=== PATIENT | female | born 1970 | race Caucasian/White ===

== ENCOUNTER 2018-09-01 08:00 | Outpatient (CLI) | payer MEDICAID | END 2018-09-01 23:59 | disposition home or self-care (01) | LOC: LAB.R 08:00 | PROVIDERS: ATTEND Obstetrics & Gynecology | DX: A60.00 Herpesviral infection of urogenital system, unspecified (principal) ==

== ENCOUNTER 2018-09-08 09:32 | Emergency (ER) | payer MEDICAID ==
[2018-09-08] MEDS ORDERED: predniSONE 20 MG TABLET PO STA (11:24)
[2018-09-08] MEDS ORDERED: guaiFENesin/DEXTROMETHORPHAN 10 ML UDC PO STA (11:24)
[2018-09-08] MEDS ORDERED: ALBUTEROL NEB 2.5 MG/3 ML INH STA (11:24)
--- NOTE | 2018-09-08 12:50 | XRAY Report ---
Reason: Jim mccullough Procedure Date: 09/08/2018 Accession Number: [id number] / [id number] Procedure: XR - Chest 2 View X-Ray CPT Code: 02648 FULL RESULT: EXAM: CHEST RADIOGRAPHY EXAM DATE: 09/08/2018 12:23 PM. CLINICAL HISTORY: Jim cali. COMPARISON: None. TECHNIQUE: 2 views. FINDINGS: Lungs/Pleura: No focal consolidation. Very mild opacity at the anterior lung base on the lateral view suggests some very mild atelectasis or infiltrate within the lingular segment. No pleural effusion. No pneumothorax. Mediastinum: Heart and mediastinal contours are unremarkable. Other: None. IMPRESSION: Possible mild atelectasis or infiltrate within the lingular segment left upper lobe. No definite consolidation. RADIA
--- NOTE | 2018-09-08 13:12 | ED Physician Documentation ---
History of Present Illness - Stated complaint Stated Complaint: SOA/COUGH - Chief complaint Chief Complaint: Resp - Additonal information Additional information: hx from pt 48 female has lupus not on immunosupressants also chronic bronchitis uses spiriva and albuter[place] moved her from [place] several days of head congestion now into chest with cough and myalgias and SOA rest of family with same denies preg no leg swelling Review of Systems Constitutional: reports: Myalgias, Fatigue. denies: Fever Nose: reports: Congestion Cardiac: denies: Chest pain / pressure Respiratory: reports: Dyspnea, Cough : denies: Now EGA Musculoskeletal: denies: Extremity swelling Immunocompromised: denies: Immunocompromised PD PAST MEDICAL HISTORY - Past Medical History Past Medical History: Yes Respiratory: Asthma, Pneumonia, Other Endocrine/Autoimmune: Systemic lupus erythematosus GI: Pancreatitis, Cirrhosis Musculoskeletal: Osteoarthritis Other Past Medical History: lupus sle, non alcoholic cirrhosis,esophagus strictures - Past Surgical History General: Cholecystectomy, EGD Ortho: Arthroscopic surgery, Carpal Tunnel surgery, Other HEENT: Other - Present Medications Home Medications: Ambulatory Orders Medication Instructions Recorded Confirmed Albuterol 80 mcg INH BID 09/08/18 09/08/18 Albuterol Sulf [Ventolin Hfa 90 mcg INH Q6H 09/08/18 09/08/18 Inhaler] Alprazolam [Alprazolam Xr] 09/08/18 Brexpiprazole [Rexulti] DAILY 09/08/18 Doxycycline Hyclate 100 mg PO BID #20 capsule 09/08/18 Furosemide [Lasix] ORAL DAILY 09/08/18 Levothyroxine [Synthroid] DAILY 09/08/18 Rabeprazole Sodium [Aciphex] 40 mg ORAL DAILY 09/08/18 09/08/18 Sertraline HCl [Zoloft] 100 mg ORAL DAILY 09/08/18 09/08/18 diphenhydrAMINE [Benadryl] 09/08/18 guaiFENesin/DEXTROMETHORPHAN 10 ml PO Q6H PRN #120 ml 09/08/18 [Robitussin Dm] metFORMIN [Glucophage] ORAL DAILY 09/08/18 predniSONE [Deltasone] 60 mg PO DAILY 5 Days #15 tablet 09/08/18 - Allergies Allergies/Adverse Reactions: Allergies Allergy/AdvReac Type Severity Reaction Status Date / Time naproxen [From Aleve] Allergy Cramps Verified 09/08/18 09:45 Penicillins Allergy Anaphylaxis Verified 09/08/18 09:44 Sulfa (Sulfonamide Allergy Cramps Verified 09/08/18 09:44 Antibiotics) - Social History Does the pt smoke?: Yes Smoking Status: Current every day smoker Does the pt drink ETOH?: No Does the pt have substance abuse?: No - Immunizations Immunizations are current?: Yes - POLST Patient has POLST: No PD ED PE NORMAL - Vitals Vital signs reviewed: Yes - HEENT HEENT: Atraumatic, Ears normal, Moist mucous membranes, Other (no sinus TTP) - Neck Neck: Supple, no meningeal sign - Cardiac Cardiac: RRR - Respiratory Respiratory: No: Clear bilaterally (LLQ ronchi, no wheeze) - Extremities Extremities: No edema, No calf tenderness / cord Results - Vitals Vitals: Vital Signs - 24 hr 09/08/18 09/08/18 09:42 11:40 Temperature 36.0 C L Heart Rate 105 H 87 Respiratory 20 17 Rate Blood Pressure 141/90 H O2 Saturation 97 Oxygen O2 Source Room air - Labs Labs: Laboratory Tests 09/08/18 10:38 Influenza A (Rapid) Negative Influenza B (Rapid) Negative - Rads (name of study) CXR Radiology: See rad report (lingular infiltrate) Departure - Departure Disposition: 01 Home, Self Care Clinical Impression: Pneumonia Qualifiers: Pneumonia type: due to unspecified organism Laterality: left Lung location: lower lobe of lung Qualified Code(s): J18.1 - Lobar pneumonia, unspecified organism Condition: Good Instructions: ED Pneumonia Adult Prescriptions: Doxycycline Hyclate 100 mg PO BID #20 capsule guaiFENesin/DEXTROMETHORPHAN [Robitussin Dm] 10 ml PO Q6H PRN #120 ml PRN Reason: Cough predniSONE [Deltasone] 60 mg PO DAILY 5 Days #15 tablet Comments: Continue to use your albuterol every 4 hr as needed
[2018-09-08 13:49] VITALS: BP 138/88
== END 2018-09-08 13:48 | disposition home or self-care (01) ==
LOC: ED 09:32
DX: J18.1 Lobar pneumonia, unspecified organism (principal); M32.9 Systemic lupus erythematosus, unspecified; F17.200 Nicotine dependence, unspecified, uncomplicated
CPT/HCPCS: 71046; 87275; 87276; 94640; 99283; A9270; J7512

== ENCOUNTER 2018-10-10 07:47 | Outpatient (CLI) | payer MEDICAID ==
[2018-10-10 12:51] LABS: BASOPHILS % (AUTO) 0.3 %; EOSINOPHILS # (AUTO) 0.3 10^3/uL (0.0-0.7); EOSINOPHILS % (AUTO) 3.9 %; LYMPHOCYTES # (AUTO) 1.7 10^3/uL (1.5-3.5); LYMPHOCYTES % (AUTO) 22.8 %; MEAN CORPUSCULAR HEMOGLOBIN 32.4 pg (27.0-31.0); MEAN CORPUSCULAR HGB CONC 34.5 g/dL (32.0-36.0); MEAN CORPUSCULAR VOLUME 93.9 fL (81.0-99.0); MONOCYTES # (AUTO) 0.4 10^3/uL (0.0-1.0); MONOCYTES % (AUTO) 5.3 %; NEUTROPHILS # (AUTO) 5.1 10^3/uL (1.5-6.6); NEUTROPHILS % (AUTO) 67.7 %; PLT - PLATELET COUNT 291 10^3/uL (130-450); RED BLOOD COUNT 4.33 10^6/uL (4.20-5.40); RED CELL DISTRIBUTION WIDTH 13.7 % (12.0-15.0); WHITE BLOOD COUNT 7.6 x10^3/uL (4.8-10.8)
[2018-10-10 13:03] LABS: HB2 TOTAL 15.5 g/dL; HEMOGLOBIN A1C 0.65 g/dL
[2018-10-10 13:04] LABS: % IRON SATURATION 19 % (20-50); ALBUMIN 3.6 g/dL (3.2-5.5); ALBUMIN/GLOBULIN RATIO 1.2 (1.0-2.2); ALKALINE PHOSPHATASE 98 IU/L (42-121); ALT ALANINE AMINOTRANSFERASE 31 IU/L (10-60); AST ASPARTATE AMINOTRANSFERASE 30 IU/L (10-42); BILIRUBIN,TOTAL 0.3 mg/dL (0.2-1.0); BUN - BLOOD UREA NITROGEN 5 mg/dL (6-20); CALCIUM 8.8 mg/dL (8.5-10.3); CARBON DIOXIDE - CO2 27 mmol/L (21-32); CHLORIDE 103 mmol/L (101-111); CHOL/HDL RATIO 6.7 (<4.4); CHOLESTEROL 207 mg/dL; CREATININE 0.6 mg/dL (0.4-1.0); GFR - MDRD 108 (>89); GLUCOSE 144 mg/dL (70-100); HDL CHOLESTEROL 31 mg/dL; IRON 57 ug/dL (28-170); LDL CHOLESTEROL,CALCULATED 130 mg/dL; LDL/HDL RATIO 4.2 (<4.4); SODIUM 138 mmol/L (135-145); TOTAL IRON BINDING CAPACITY 298 ug/dL (250-450); TOTAL PROTEIN 6.6 g/dL (6.7-8.2); TRANSFERRIN 213 mg/dL (192-382); VLDL CHOLESTEROL 46 mg/dL
[2018-10-10 13:12] LABS: THYROID STIMULATING HORMONE 1.34 uIU/mL (0.34-5.60)
[2018-10-10 13:19] LABS: FERRITIN 79.2 ng/mL (11.0-306.8)
[2018-10-10 13:23] LABS: FOLATE 4.49 ng/mL (5.90 - >24.8)
== END 2018-10-10 23:59 | disposition home or self-care (01) ==
LOC: LAB.N 07:47
PROVIDERS: ATTEND Nurse Practitioner
DX: E11.43 Type 2 diabetes mellitus with diabetic autonomic (poly)neuropathy (principal); E55.9 Vitamin D deficiency, unspecified; D64.9 Anemia, unspecified
CPT/HCPCS: 36415; 80053; 80061; 82043; 82306; 82607; 82728; 82746; 83036; 83540; 83721; 84443; 84466; 85025

== ENCOUNTER 2018-10-30 20:40 | Outpatient (CLI) | payer MEDICAID | END 2018-10-30 20:41 | disposition critical access hospital (66) | LOC: EMS 20:40 | PROVIDERS: ATTEND Surgery | DX: M25.522 Pain in left elbow (principal); W01.0XXA Fall on same level from slipping, tripping and stumbling without subsequent striking against object, initial encounter; Y92.009 Unspecified place in unspecified non-institutional (private) residence as the place of occurrence of the external cause | CPT/HCPCS: A0425; A0427 ==

== ENCOUNTER 2018-10-30 20:57 | Emergency (ER) | payer MEDICAID ==
--- NOTE | 2018-10-30 21:05 | ED Physician Documentation ---
PD HPI UPPER EXT INJURY - Stated complaint Stated Complaint: GLF - Chief complaint Chief Complaint: Trauma Ext - History obtained from History obtained from: Patient - History of Present Illness Location: Left, Elbow, Forearm Type of injury: Fall Where injury occurred: Home Timing - onset: Enter time (20:20), Today Timing - details: Abrupt onset Pain level now: 8 Improved by: Rest, Immobilization Worsened by: Moving, Palpating Associated symptoms: No: Weakness, Numbness, Tingling, Swelling, Discolored Similar symptoms before: Has not had sx before Recently seen: Not recently seen - Additonal information Additional information: tripped on rug at home, fell on outstretched LUE, c/o left elbow and left FA pain. right hand dominant Review of Systems Musculoskeletal: reports: Extremity pain, Joint pain. denies: Neck pain, Back pain Neurologic: denies: Focal weakness, Numbness PD PAST MEDICAL HISTORY - Past Medical History Respiratory: Asthma, Pneumonia, Other Endocrine/Autoimmune: Systemic lupus erythematosus GI: Pancreatitis, Cirrhosis Musculoskeletal: Osteoarthritis - Past Surgical History General: Cholecystectomy, EGD Ortho: Arthroscopic surgery, Carpal Tunnel surgery, Other HEENT: Other - Present Medications Home Medications: Ambulatory Orders Medication Instructions Recorded Confirmed Albuterol 80 mcg INH BID 09/08/18 09/08/18 Albuterol Sulf [Ventolin Hfa 90 mcg INH Q6H 09/08/18 09/08/18 Inhaler] Alprazolam [Alprazolam Xr] 09/08/18 Brexpiprazole [Rexulti] DAILY 09/08/18 Doxycycline Hyclate 100 mg PO BID #20 capsule 09/08/18 Furosemide [Lasix] ORAL DAILY 09/08/18 Levothyroxine [Synthroid] DAILY 09/08/18 Rabeprazole Sodium [Aciphex] 40 mg ORAL DAILY 09/08/18 09/08/18 Sertraline HCl [Zoloft] 100 mg ORAL DAILY 09/08/18 09/08/18 diphenhydrAMINE [Benadryl] 09/08/18 guaiFENesin/DEXTROMETHORPHAN 10 ml PO Q6H PRN #120 ml 09/08/18 [Robitussin Dm] metFORMIN [Glucophage] ORAL DAILY 09/08/18 predniSONE [Deltasone] 60 mg PO DAILY 5 Days #15 tablet 09/08/18 Oxycodone HCl/Acetaminophen 1 - 2 each PO Q6H PRN #16 tablet 10/30/18 [Percocet 5-325 mg Tablet] - Allergies Allergies/Adverse Reactions: Allergies Allergy/AdvReac Type Severity Reaction Status Date / Time naproxen [From Aleve] Allergy Cramps Verified 10/30/18 21:01 Penicillins Allergy Anaphylaxis Verified 10/30/18 21:01 Sulfa (Sulfonamide Allergy Cramps Verified 10/30/18 21:01 Antibiotics) - Social History Does the pt smoke?: Yes Smoking Status: Current every day smoker Does the pt drink ETOH?: No Does the pt have substance abuse?: No - Immunizations Immunizations are current?: Yes - POLST Patient has POLST: No PD ED PE NORMAL - Vitals Vital signs reviewed: Yes - General General: Alert and oriented X 3, No acute distress, Well developed/nourished - Derm Derm: Normal color, Warm and dry - Extremities Extremities: No edema - Neuro Neuro: No motor deficit, No sensory deficit PD ED PE EXPANDED - Extremities Extremities: Tenderness, Limited ROM, Left elbow, Left forearm. No: Deformity Results - Vitals Vitals: Oxygen O2 Source Room air - Rads (name of study) left forearm xrays Radiology: Prelim report reviewed, See rad report left elbow xrays Radiology: Prelim report reviewed, See rad report PD MEDICAL DECISION MAKING - ED course Complexity details: reviewed results, re-evaluated patient, considered differential, d/w patient Departure - Departure Disposition: 01 Home, Self Care Clinical Impression: Sprain of elbow, left, Contusion of forearm, left Condition: Good Instructions: ED Contusion Upper Ext, ED Sprain Elbow, ED Sling, ED Splint Care Fiberglass Follow-Up: Nasim Sherwood MD [Provider Admit Priv/Credential] - Within 1 week Prescriptions: Oxycodone HCl/Acetaminophen [Percocet 5-325 mg Tablet] 1 - 2 each PO Q6H PRN #16 tablet PRN Reason: pain Discharge Date/Time: 10/30/18 22:53
--- NOTE | 2018-10-30 21:53 | XRAY Report ---
Reason: fall, injury Procedure Date: 10/30/2018 Accession Number: [id number] / [id number] Procedure: XR - Elbow 3 View LT CPT Code: FULL RESULT: EXAM: LEFT ELBOW RADIOGRAPHY EXAM DATE: 10/30/2018 09:42 PM. CLINICAL HISTORY: Fall, injury. COMPARISON: None available FOREARM LT 10/30/2018 9:25 PM. TECHNIQUE: 3 views. FINDINGS: Overlying artifact limits bone and soft tissue detail. No definite acute fracture or dislocation visualized. No definite joint effusion. IMPRESSION: Exam limited by overlying artifact. No definite fracture or dislocation visualized. RADIA
--- NOTE | 2018-10-30 21:55 | XRAY Report ---
Reason: GLF/injury to LFA. Procedure Date: 10/30/2018 Accession Number: [id number] / [id number] Procedure: XR - Forearm LT CPT Code: FULL RESULT: EXAM: LEFT FOREARM RADIOGRAPHY EXAM DATE: 10/30/2018 09:25 PM. CLINICAL HISTORY: GLF/injury to LFA. COMPARISON: None available. TECHNIQUE: 2 views. FINDINGS: Overlying artifact limits detail. No definite acute fracture or dislocation visualized. IMPRESSION: No definite acute fracture or dislocation visualized. RADIA
[2018-10-30] MEDS ORDERED: oxyCODONE 5 MG TABLET PO STA (22:12)
[2018-10-30 22:44] VITALS: BP 130/79
== END 2018-10-30 22:53 | disposition home or self-care (01) ==
LOC: EDUNIT# → ED 20:57
DX: S53.402A Unspecified sprain of left elbow, initial encounter (principal); S50.12XA Contusion of left forearm, initial encounter; W18.09XA Striking against other object with subsequent fall, initial encounter; Y92.009 Unspecified place in unspecified non-institutional (private) residence as the place of occurrence of the external cause; F17.200 Nicotine dependence, unspecified, uncomplicated; M32.9 Systemic lupus erythematosus, unspecified
CPT/HCPCS: 73080; 73090; 99283; A9270

== ENCOUNTER 2018-11-22 19:07 | Outpatient (CLI) | payer MEDICAID | END 2018-11-22 19:08 | disposition critical access hospital (66) | LOC: EMS 19:07 | PROVIDERS: ATTEND Surgery | DX: M25.561 Pain in right knee (principal); W18.30XA Fall on same level, unspecified, initial encounter; Y92.009 Unspecified place in unspecified non-institutional (private) residence as the place of occurrence of the external cause | CPT/HCPCS: A0425; A0429 ==

== ENCOUNTER 2018-11-22 19:24 | Emergency (ER) | payer MEDICAID ==
--- NOTE | 2018-11-22 20:12 | XRAY Report ---
Reason: GLF injury to R knee. Procedure Date: 11/22/2018 Accession Number: [id number] / [id number] Procedure: XR - Knee 3 View RT CPT Code: FULL RESULT: EXAM: RIGHT KNEE RADIOGRAPHY EXAM DATE: 11/22/2018 07:53 PM. CLINICAL HISTORY: GLF injury to R knee. COMPARISON: None. TECHNIQUE: 3 views. FINDINGS: Bones: Normal. No fractures or bone lesions. Joints: Small Suprapatellar Effusion. Moderate osteoarthritis, worst in the lateral and patellofemoral compartments. Soft Tissues: Soft tissue swelling anteriorly. IMPRESSION: Soft tissue swelling and small suprapatellar effusion. No acute fracture or dislocation. Osteoarthritis. RADIA
[2018-11-22 21:46] VITALS: BP 129/86
[2018-11-22] MEDS ORDERED: oxyCODONE 5 MG TABLET PO STA (22:29)
--- NOTE | 2018-11-22 22:31 | ED Physician Documentation ---
PD HPI LOWER EXT INJURY - Stated complaint Stated Complaint: FALL/KNEE PAIN - Chief complaint Chief Complaint: Trauma Ext - History obtained from History obtained from: Patient - History of Present Illness PD HPI LOW EXT INJURY LOCATION: Right, Knee Type of injury: Fall Where injury occurred: Home Timing - onset: How many hours ago (3) Timing - duration: Hours (3) Timing - details: Abrupt onset Pain level max: 10 Pain level now: 10 Improved by: Rest, Ice, Immobilization Worsened by: Moving, Palpating, Other (walking) Associated symptoms: Discolored (bruising). No: Weakness, Numbness, Swelling Similar symptoms before: Has not had sx before Recently seen: Not recently seen - Additional information Additional information: tripped and fell, landing on R knee Review of Systems Skin: denies: Rash Musculoskeletal: denies: Neck pain, Back pain Neurologic: denies: Focal weakness, Numbness, Head injury PD PAST MEDICAL HISTORY - Past Medical History Respiratory: Asthma, Pneumonia, Other Endocrine/Autoimmune: Systemic lupus erythematosus GI: Pancreatitis, Cirrhosis Musculoskeletal: Osteoarthritis - Past Surgical History Past Surgical History: Yes General: Cholecystectomy, EGD Ortho: Arthroscopic surgery, Carpal Tunnel surgery, Other HEENT: Other - Present Medications Home Medications: Ambulatory Orders Medication Instructions Recorded Confirmed Albuterol 80 mcg INH BID 09/08/18 09/08/18 Albuterol Sulf [Ventolin Hfa 90 mcg INH Q6H 09/08/18 09/08/18 Inhaler] Alprazolam [Alprazolam Xr] 09/08/18 Brexpiprazole [Rexulti] DAILY 09/08/18 Doxycycline Hyclate 100 mg PO BID #20 capsule 09/08/18 Furosemide [Lasix] ORAL DAILY 09/08/18 Levothyroxine [Synthroid] DAILY 09/08/18 Rabeprazole Sodium [Aciphex] 40 mg ORAL DAILY 09/08/18 09/08/18 Sertraline HCl [Zoloft] 100 mg ORAL DAILY 09/08/18 09/08/18 diphenhydrAMINE [Benadryl] 09/08/18 guaiFENesin/DEXTROMETHORPHAN 10 ml PO Q6H PRN #120 ml 09/08/18 [Robitussin Dm] metFORMIN [Glucophage] ORAL DAILY 09/08/18 predniSONE [Deltasone] 60 mg PO DAILY 5 Days #15 tablet 09/08/18 Oxycodone HCl/Acetaminophen 1 - 2 each PO Q6H PRN #16 tablet 10/30/18 [Percocet 5-325 mg Tablet] Oxycodone HCl/Acetaminophen 1 - 2 each PO Q6H PRN #10 tablet 11/22/18 [Percocet 5-325 mg Tablet] - Allergies Allergies/Adverse Reactions: Allergies Allergy/AdvReac Type Severity Reaction Status Date / Time naproxen [From Aleve] Allergy Cramps Verified 11/22/18 19:32 Penicillins Allergy Anaphylaxis Verified 11/22/18 19:32 Sulfa (Sulfonamide Allergy Cramps Verified 11/22/18 19:32 Antibiotics) - Social History Does the pt smoke?: Yes Smoking Status: Current every day smoker Does the pt drink ETOH?: No Does the pt have substance abuse?: No - Immunizations Immunizations are current?: Yes - POLST Patient has POLST: No PD ED PE NORMAL - Vitals Vital signs reviewed: Yes - General General: Alert and oriented X 3, No acute distress - HEENT HEENT: Moist mucous membranes - Neck Neck: Supple, no meningeal sign - Cardiac Cardiac: RRR - Respiratory Respiratory: No respiratory distress, Clear bilaterally - Derm Derm: Warm and dry - Extremities Extremities: Other (R knee - Tender to palpation over the patella. Ecchymosis noted. ACL, MCL, LCL, PCL are intact. Neurovascularly intact) - Neuro Neuro: Alert and oriented X 3 Results - Vitals Vitals: Vital Signs - 24 hr 11/22/18 11/22/18 19:25 21:45 Temperature 35.9 C L 36.0 C L Heart Rate 85 79 Respiratory 16 16 Rate Blood Pressure 139/92 H 129/86 H O2 Saturation 99 98 Oxygen O2 Source Room air - Rads (name of study) R knee xray Radiology: Prelim report reviewed, EMP read contemporaneously, See rad report (Soft tissue swelling and small suprapatellar effusion. No acute fracture or dislocation. Osteoarthritis. ) PD MEDICAL DECISION MAKING - ED course Complexity details: reviewed results, re-evaluated patient, considered differential, d/w patient ED course: 48-year-old female presents to the emergency department with a right knee contusion. No acute findings on x-ray. Given crutches to help her ambulate. Will prescribe pain medication for home. Patient counseled regarding signs and symptoms for which I believe and urgent re-evaluation would be necessary. Patient with good understanding of and agreement to plan and is comfortable going home at this time This document was made in part using voice recognition software. While efforts are made to proofread this document, sound alike and grammatical errors may occur. Departure - Departure Disposition: 01 Home, Self Care Clinical Impression: Contusion of knee, right Qualifiers: Encounter type: initial encounter Qualified Code(s): S80.01XA - Contusion of right knee, initial encounter Condition: Good Instructions: ED Contusion Lower Ext Follow-Up: Luly Enriquez DNP [Primary Care Provider] - Within 1 week Prescriptions: Oxycodone HCl/Acetaminophen [Percocet 5-325 mg Tablet] 1 - 2 each PO Q6H PRN #10 tablet PRN Reason: pain Comments: You may bear weight as tolerated. Return if you worsen. Follow-up with your doctor for further care. Your x-rays are normal today. Do not drink alcohol or drive while on narcotic pain medicine. Note that many narcotic pain relievers also contain tylenol/acetaminophen. P lease ensure that your total dose of acetaminophen from all sources does not exceed 3 grams (3000mg) per day. You may constipated on this medication, take a stool softener such as "Colace" twice a day while you are on it. Also recommend a phlu-viv-wapahts laxative such as senna or MiraLAX any day that you do not have a bowel movement. If you received narcotic pain medication in the emergency department, do not drive or operate machinery for the next 24 hours. Discharge Date/Time: 11/22/18 22:45
== END 2018-11-22 22:45 | disposition home or self-care (01) ==
LOC: EDUNIT# → ED 19:24
DX: S80.01XA Contusion of right knee, initial encounter (principal); W01.198A Fall on same level from slipping, tripping and stumbling with subsequent striking against other object, initial encounter; F17.200 Nicotine dependence, unspecified, uncomplicated
CPT/HCPCS: 73562; 99283; A9270

== ENCOUNTER 2019-01-29 08:00 | Outpatient (CLI) | payer MEDICAID ==
[2019-01-29 19:52] LABS: HB2 TOTAL 16.3 g/dL; HEMOGLOBIN A1C 0.7 g/dL; HEMOGLOBIN A1C % 6.1 % (4.6-6.2)
== END 2019-01-29 23:59 | disposition home or self-care (01) ==
LOC: LAB.WCP 08:00
PROVIDERS: ATTEND Physician Assistant
DX: E11.9 Type 2 diabetes mellitus without complications (principal)
CPT/HCPCS: 36415; 83036

== ENCOUNTER 2019-02-22 08:15 | Outpatient (CLI) | payer MEDICAID ==
--- NOTE | 2019-02-22 10:39 | Ultrasound Report ---
Reason: CIRRHOSIS OF LIVER WITHOUT ASCITES,UNSPECIFIED CIR Procedure Date: 02/22/2019 Accession Number: [id number] / [id number] Procedure: US - Abdomen Complete CPT Code: FULL RESULT: EXAM: ABDOMEN ULTRASOUND EXAM DATE: 02/22/2019 08:21 AM. CLINICAL HISTORY: Cirrhosis of liver without ascites. COMPARISON: None. TECHNIQUE: Real-time scanning was performed with static images obtained. FINDINGS: Liver: Parenchyma is coarse and echogenic which limits sensitivity for underlying masses, none is seen. There is hepatomegaly with the right lobe of the liver measuring at least 23 cm. Surface contour of the liver appears mildly nodular. Main portal vein flow: Hepatopetal. Gallbladder: Status post cholecystectomy. Biliary System: Common bile duct measures 6 mm. No intrahepatic or extrahepatic ductal dilatation. Pancreas: Visualized portion is unremarkable. Kidneys: Right: 13.5 cm longitudinally. Limited visualization due to the acoustic impedance of the liver with suggestion of a parapelvic cyst. No hydronephrosis. Left: 13.1 cm longitudinally. Note is made of a cyst measuring up to 1.9 cm. No contour-deforming mass, stones, or hydronephrosis. Spleen: 13.6 cm. Mild splenomegaly. Aorta and Inferior Vena Cava: Prominent atherosclerotic plaques are seen within the aorta. IVC is within normal limits. Other: None. IMPRESSION: Cirrhotic liver with echogenic and coarse echotexture which limits sensitivity for masses, none is seen. Splenomegaly. Atherosclerotic aorta. RADIA
== END 2019-02-22 08:16 | disposition home or self-care (01) ==
LOC: DI 08:15
PROVIDERS: ATTEND Physician Assistant
DX: K74.60 Unspecified cirrhosis of liver (principal); L93.0 Discoid lupus erythematosus; R13.10 Dysphagia, unspecified; R16.1 Splenomegaly, not elsewhere classified
CPT/HCPCS: 76700

== ENCOUNTER 2019-03-12 12:28 | Outpatient (CLI) | payer MEDICAID | END 2019-03-12 12:29 | disposition home or self-care (01) | LOC: NS 12:28 | PROVIDERS: ATTEND Physician Assistant | DX: E66.01 Morbid (severe) obesity due to excess calories (principal); Z71.3 Dietary counseling and surveillance; Z68.43 Body mass index [BMI] 50.0-59.9, adult | CPT/HCPCS: 97802 ==

== ENCOUNTER 2019-03-27 12:40 | Outpatient (CLI) | payer MEDICAID | END 2019-03-27 12:41 | disposition home or self-care (01) | LOC: NS 12:40 | PROVIDERS: ATTEND Physician Assistant Medical | DX: E66.01 Morbid (severe) obesity due to excess calories (principal); Z71.3 Dietary counseling and surveillance; Z68.43 Body mass index [BMI] 50.0-59.9, adult | CPT/HCPCS: 97803 ==

== ENCOUNTER 2019-04-10 13:41 | Outpatient (CLI) | payer MEDICAID | END 2019-04-10 13:42 | disposition home or self-care (01) | LOC: NS 13:41 | PROVIDERS: ATTEND Family Medicine | DX: E66.01 Morbid (severe) obesity due to excess calories (principal); Z71.3 Dietary counseling and surveillance; Z68.43 Body mass index [BMI] 50.0-59.9, adult | CPT/HCPCS: 97803 ==

== ENCOUNTER 2019-04-24 11:20 | Outpatient (CLI) | payer MEDICAID | END 2019-04-24 11:21 | disposition home or self-care (01) | LOC: NS 11:20 | PROVIDERS: ATTEND Physician Assistant | DX: E66.01 Morbid (severe) obesity due to excess calories (principal); Z71.3 Dietary counseling and surveillance; Z68.43 Body mass index [BMI] 50.0-59.9, adult | CPT/HCPCS: 97803 ==

== ENCOUNTER 2019-05-08 10:34 | Outpatient (CLI) | payer MEDICAID | END 2019-05-08 10:35 | disposition home or self-care (01) | LOC: NS 10:34 | PROVIDERS: ATTEND Physician Assistant | DX: E66.01 Morbid (severe) obesity due to excess calories (principal); Z68.43 Body mass index [BMI] 50.0-59.9, adult; Z71.3 Dietary counseling and surveillance | CPT/HCPCS: 97803 ==

== ENCOUNTER 2019-05-17 07:19 | Outpatient (CLI) | payer MEDICAID ==
[2019-05-17 12:31] LABS: BASOPHILS # (AUTO) 0.1 10^3/uL (0.0-0.1); BASOPHILS % (AUTO) 0.5 %; EOSINOPHILS # (AUTO) 0.5 10^3/uL (0.0-0.7); EOSINOPHILS % (AUTO) 4.6 %; HGB - HEMOGLOBIN 13.3 g/dL (12.0-16.0); LYMPHOCYTES # (AUTO) 2.3 10^3/uL (1.5-3.5); MEAN CORPUSCULAR HEMOGLOBIN 29.8 pg (27.0-31.0); MEAN CORPUSCULAR HGB CONC 31.7 g/dL (32.0-36.0); MEAN CORPUSCULAR VOLUME 93.9 fL (81.0-99.0); MEAN PLATELET VOLUME 10.5 fL (7.9-10.8); MONOCYTES # (AUTO) 0.5 10^3/uL (0.0-1.0); MONOCYTES % (AUTO) 4.8 %; NEUTROPHILS # (AUTO) 7.5 10^3/uL (1.5-6.6); NEUTROPHILS % (AUTO) 68.7 %; PLT - PLATELET COUNT 379 10^3/uL (130-450); RED BLOOD COUNT 4.46 10^6/uL (4.20-5.40); RED CELL DISTRIBUTION WIDTH 13.9 % (12.0-15.0)
[2019-05-17 12:44] LABS: ABSOLUTE RETICS # AUTO 0.105 10^6/uL (0.020-0.110)
[2019-05-17 12:46] LABS: HB2 TOTAL 14.7 g/dL; HEMOGLOBIN A1C 0.77 g/dL; HEMOGLOBIN A1C % 6.9 % (4.6-6.2)
[2019-05-17 12:51] LABS: % IRON SATURATION 17 % (20-50); ALBUMIN 3.6 g/dL (3.2-5.5); AMYLASE 20 U/L (28-100); BUN - BLOOD UREA NITROGEN 8 mg/dL (6-20); CALCIUM 9.1 mg/dL (8.5-10.3); CARBON DIOXIDE - CO2 22 mmol/L (21-32); CHLORIDE 105 mmol/L (101-111); CHOL/HDL RATIO 7.8 (<4.4); CHOLESTEROL 210 mg/dL; CREATININE 0.7 mg/dL (0.4-1.0); GFR - MDRD 90 (>89); GLUCOSE 156 mg/dL (70-100); HDL CHOLESTEROL 27 mg/dL; IRON 58 ug/dL (28-170); LDL CHOLESTEROL,CALCULATED 137 mg/dL; LDL/HDL RATIO 5.1 (<4.4); LIPASE 34 U/L (22-51); PHOSPHORUS 4.2 mg/dL (2.5-4.6); SODIUM 139 mmol/L (135-145); TOTAL IRON BINDING CAPACITY 332 ug/dL (250-450); TRANSFERRIN 237 mg/dL (192-382); VLDL CHOLESTEROL 46 mg/dL
[2019-05-17 12:58] LABS: FERRITIN 44.4 ng/mL (11.0-306.8)
[2019-05-17 13:04] LABS: FOLATE 3.17 ng/mL (5.90 - >24.8)
== END 2019-05-17 23:59 | disposition home or self-care (01) ==
LOC: LAB.N 07:19
PROVIDERS: ATTEND Family Medicine
DX: E11.9 Type 2 diabetes mellitus without complications (principal); Z68.43 Body mass index [BMI] 50.0-59.9, adult
CPT/HCPCS: 36415; 80061; 80069; 81599; 82150; 82306; 82607; 82728; 82746; 83036; 83525; 83540; 83690; 83721; 84466; 85025; 85044

== ENCOUNTER 2019-05-22 11:11 | Outpatient (CLI) | payer MEDICAID | END 2019-05-22 11:12 | disposition home or self-care (01) | LOC: NS 11:11 | PROVIDERS: ATTEND Physician Assistant | DX: E66.01 Morbid (severe) obesity due to excess calories (principal); Z71.3 Dietary counseling and surveillance; Z68.43 Body mass index [BMI] 50.0-59.9, adult | CPT/HCPCS: 97803 ==

== ENCOUNTER 2019-06-05 11:00 | Outpatient (CLI) | payer MEDICAID | END 2019-06-05 11:01 | disposition home or self-care (01) | LOC: NS 11:00 | PROVIDERS: ATTEND Physician Assistant | DX: E66.01 Morbid (severe) obesity due to excess calories (principal); Z68.43 Body mass index [BMI] 50.0-59.9, adult; Z71.3 Dietary counseling and surveillance | CPT/HCPCS: 97803 ==

== ENCOUNTER 2019-06-19 11:06 | Outpatient (CLI) | payer MEDICAID | END 2019-06-19 11:07 | disposition home or self-care (01) | LOC: NS 11:06 | PROVIDERS: ATTEND Family Medicine | DX: Z71.3 Dietary counseling and surveillance (principal); E66.01 Morbid (severe) obesity due to excess calories; Z68.43 Body mass index [BMI] 50.0-59.9, adult | CPT/HCPCS: 97803 ==

== ENCOUNTER 2019-06-28 12:35 | Outpatient (CLI) | payer MEDICAID ==
[2019-06-28 13:10] LABS: CREATININE 0.6 mg/dL (0.4-1.0)
[2019-07-01] MEDS ORDERED: IOVERSOL 320 100 ML VIAL IVP ONE (18:01)
[2019-07-01] MEDS ORDERED: IOVERSOL 320 50 ML VIAL PO ONE (18:01)
== END 2019-06-28 12:36 | disposition home or self-care (01) ==
LOC: DI 12:35
PROVIDERS: ATTEND Surgery
DX: R19.04 Left lower quadrant abdominal swelling, mass and lump (principal)
CPT/HCPCS: 36415; 82565

== ENCOUNTER 2019-07-01 11:52 | Outpatient (CLI) | payer MEDICAID ==
[2019-07-01] MEDS ORDERED: IOVERSOL 320 100 ML VIAL IVP ONE (12:08)
[2019-07-01] MEDS ORDERED: IOVERSOL 320 50 ML VIAL ONE (12:08)
--- NOTE | 2019-07-02 18:02 | CT Report ---
Reason: LLQ ABDOMINAL SWELLING, MASS, OR LUMP Procedure Date: 07/01/2019 Accession Number: [id number] / [id number] Procedure: CT - Abdomen/Pelvis W CPT Code: FULL RESULT: EXAM: CT ABDOMEN AND PELVIS EXAM DATE: 07/01/2019 01:55 PM. CLINICAL HISTORY: LLQ ABDOMINAL SWELLING, MASS, OR LUMP. COMPARISONS: None. TECHNIQUE: Routine helical CT imaging was performed through the abdomen and pelvis. IV contrast: OPTI 320 100ML. Enteric contrast: Yes. Reconstructions: Coronal and sagittal. In accordance with CT protocol optimization, one or more of the following dose reduction techniques were utilized for this exam: automated exposure control, adjustment of mA and/or KV based on patient size, or use of iterative reconstructive technique. FINDINGS: Lung Bases: Unremarkable. Liver: Normal. No masses. Gallbladder/Bile Ducts: Status post cholecystectomy Spleen: Normal. Pancreas: Normal. Adrenal Glands: Normal. Kidneys: Normal. No masses or hydronephrosis. Peritoneal Cavity/Bowel: No free fluid, free air or adenopathy. No masses or acute inflammatory process. The appendix is not seen but there are no secondary signs of appendicitis. Pelvic Organs: The bladder and pelvic organs are within normal limits. Vasculature: No aneurysms or other significant abnormality. Bones: No significant abnormality. Other: None. IMPRESSION: Normal abdomen and pelvis CT. RADIA
== END 2019-07-01 11:53 | disposition home or self-care (01) ==
LOC: DI 11:52
PROVIDERS: ATTEND Surgery
DX: R19.04 Left lower quadrant abdominal swelling, mass and lump (principal)
CPT/HCPCS: 74177; Q9967

== ENCOUNTER 2019-07-03 11:04 | Outpatient (CLI) | payer MEDICAID | END 2019-07-03 11:05 | disposition home or self-care (01) | LOC: NS 11:04 | PROVIDERS: ATTEND Physician Assistant | DX: E66.01 Morbid (severe) obesity due to excess calories (principal); Z71.3 Dietary counseling and surveillance; Z68.43 Body mass index [BMI] 50.0-59.9, adult | CPT/HCPCS: 97803 ==

== ENCOUNTER 2019-07-19 08:00 | Outpatient (CLI) | payer MEDICAID ==
[2019-07-19 18:42] LABS: HGB - HEMOGLOBIN 13.9 g/dL (12.0-16.0); MEAN CORPUSCULAR HEMOGLOBIN 30.2 pg (27.0-31.0); MEAN CORPUSCULAR VOLUME 94.6 fL (81.0-99.0); MEAN PLATELET VOLUME 10.8 fL (7.9-10.8); RED BLOOD COUNT 4.6 10^6/uL (4.20-5.40); RED CELL DISTRIBUTION WIDTH 13.5 % (12.0-15.0); WHITE BLOOD COUNT 11.8 x10^3/uL (4.8-10.8)
[2019-07-19 19:05] LABS: CRP - C-REACTIVE PROTEIN 2.7 mg/dL (0-1.0); URIC ACID 6.4 mg/dL (2.6-7.2)
[2019-07-19 19:13] LABS: RHEUMATOID FACTOR NEGATIVE (Negative)
== END 2019-07-19 08:01 | disposition home or self-care (01) ==
LOC: LAB.N 08:00
PROVIDERS: ATTEND Family Medicine
DX: L93.0 Discoid lupus erythematosus (principal)
CPT/HCPCS: 36415; 84550; 85027; 85651; 86038; 86140; 86200; 86430

== ENCOUNTER 2019-07-31 11:00 | Outpatient (CLI) | payer MEDICAID | END 2019-07-31 11:01 | disposition home or self-care (01) | LOC: NS 11:00 | PROVIDERS: ATTEND Physician Assistant | DX: E66.01 Morbid (severe) obesity due to excess calories (principal); Z68.43 Body mass index [BMI] 50.0-59.9, adult; Z71.3 Dietary counseling and surveillance | CPT/HCPCS: 97803 ==

== ENCOUNTER 2019-08-04 18:02 | Emergency (ER) | payer MEDICAID ==
--- NOTE | 2019-08-04 18:18 | ED Physician Documentation ---
PD HPI DYSPNEA - Stated complaint Stated Complaint: CP, SOA - Chief complaint Chief Complaint: Cardiac - History obtained from History obtained from: Patient - History of Present Illness Timing - onset: Other (49-year-old woman with no known history of coronary disease. Her risk factors include morbid obesity, htn, and tobacco use. Borderline family history given that her little brother is going in for a chest stress test tomorrow for some ongoing issues. For the last 4 days he she has had chest pressure that was initially intermittent but has been constant for the last 2 days. It is substernal pressure radiating to the neck associated with shortness of breath but no cough or sputum production. No calf pain or pedal edema. No recent travel.) Review of Systems Constitutional: reports: Fatigue. denies: Fever, Chills Eyes: denies: Loss of vision, Decreased vision Ears: denies: Loss of hearing Nose: denies: Rhinorrhea / runny nose, Congestion Throat: denies: Sore throat Cardiac: reports: Chest pain / pressure. denies: Pedal edema, Calf pain Respiratory: reports: Dyspnea. denies: Cough, Hemoptysis, Wheezing PD PAST MEDICAL HISTORY - Past Medical History Respiratory: Asthma, Pneumonia, Other Endocrine/Autoimmune: Systemic lupus erythematosus GI: Pancreatitis, Cirrhosis Musculoskeletal: Osteoarthritis - Past Surgical History Past Surgical History: Yes General: Cholecystectomy, EGD Ortho: Arthroscopic surgery, Carpal Tunnel surgery, Other HEENT: Other - Present Medications Home Medications: Ambulatory Orders Medication Instructions Recorded Confirmed Albuterol 80 mcg INH BID 09/08/18 09/08/18 Albuterol Sulf [Ventolin Hfa 90 mcg INH Q6H 09/08/18 08/04/19 Inhaler] Alprazolam [Alprazolam Xr] 2 mg PO QID 09/08/18 08/04/19 Brexpiprazole [Rexulti] 1 mg PO DAILY 09/08/18 08/04/19 Furosemide [Lasix] 40 mg ORAL DAILY 09/08/18 08/04/19 Levothyroxine [Synthroid] 25 mcg PO DAILY 09/08/18 08/04/19 Rabeprazole Sodium [Aciphex] 40 mg ORAL DAILY 09/08/18 08/04/19 Sertraline HCl [Zoloft] 100 mg ORAL DAILY 11/24/18 10/20/19 metFORMIN [Glucophage] 500 mg ORAL DAILY 09/08/18 08/04/19 Oxycodone HCl/Acetaminophen 1 - 2 each PO Q6H PRN #10 tablet 11/22/18 08/04/19 [Percocet 5-325 mg Tablet] - Allergies Allergies/Adverse Reactions: Allergies Allergy/AdvReac Type Severity Reaction Status Date / Time naproxen [From Aleve] Allergy Cramps Verified 08/04/19 19:26 Penicillins Allergy Anaphylaxis Verified 08/04/19 19:26 Sulfa (Sulfonamide Allergy Cramps Verified 08/04/19 19:26 Antibiotics) - Social History Does the pt smoke?: Yes Smoking Status: Current every day smoker Does the pt drink ETOH?: No Does the pt have substance abuse?: No - Immunizations Immunizations are current?: Yes - POLST Patient has POLST: No PD ED PE NORMAL - Vitals Vital signs reviewed: Yes - General General: Alert and oriented X 3, No acute distress, Other (BMI 52) - HEENT HEENT: PERRL, EOMI - Neck Neck: Supple, no meningeal sign, No bony TTP - Cardiac Cardiac: RRR, No murmur - Respiratory Respiratory: No respiratory distress, Clear bilaterally - Abdomen Abdomen: Non tender - Back Back: No CVA TTP, No spinal TTP - Derm Derm: Normal color, Warm and dry - Extremities Extremities: No edema, No calf tenderness / cord - Neuro Neuro: Alert and oriented X 3, Normal speech - Psych Psych: Normal mood, Normal affect Results - Vitals Vitals: Vital Signs - 24 hr 08/04/19 08/04/19 08/04/19 18:06 18:37 19:31 Temperature 37 C Heart Rate 80 81 79 Respiratory 20 16 18 Rate Blood Pressure 116/73 108/43 L 106/70 O2 Saturation 100 96 97 Oxygen O2 Source Room air - EKG (time done) 1810 Rate: Rate (enter#) (81) Rhythm: NSR [place]: Normal Intervals: Normal MS QRS: Normal, Low voltage Ischemia: Normal ST segments. No: ST elevation c/w ischemia, ST depression Computer interpretation: Agree with computer - Labs Labs: Laboratory Tests 08/04/19 08/04/19 08/04/19 18:14 18:14 18:14 WBC 10.8 RBC 4.38 Hgb 13.3 Hct 41.1 MCV 93.8 MCH 30.4 MCHC 32.4 RDW 13.6 Plt Count 253 MPV 11.0 H Neut # (Auto) 6.4 Lymph # (Auto) 3.2 [place] # (Auto) 0.6 Eos # (Auto) 0.5 Baso # (Auto) 0.1 Absolute Nucleated RBC 0.00 Nucleated RBC % 0.0 Manual Slide Review Indicated WBC Morphology NORMAL APPEARANCE Platelet Estimate NORMAL (130-450,000) Platelet Morphology 1+ LARGE PLATELETS RBC Morph Micro Appear NORMAL APPEARANCE D-Dimer Sodium 135 Potassium 3.8 Chloride 96 L Carbon Dioxide 27 Anion Gap 12.0 BUN 9 Creatinine 0.7 Estimated GFR (MDRD) 90 Glucose 146 H Calcium 8.8 Total Bilirubin 0.4 AST 22 ALT 20 Alkaline Phosphatase 86 Troponin I High Sens 4.1 B-Natriuretic Peptide Total Protein 7.4 Albumin 3.6 Globulin 3.8 Albumin/Globulin Ratio 0.9 L Lipase 28 08/04/19 08/04/19 18:14 19:25 WBC RBC Hgb Hct MCV MCH MCHC RDW Plt Count MPV Neut # (Auto) Lymph # (Auto) [place] # (Auto) Eos # (Auto) Baso # (Auto) Absolute Nucleated RBC Nucleated RBC % Manual Slide Review WBC Morphology Platelet Estimate Platelet Morphology RBC Morph Micro Appear D-Dimer 238.8 Sodium Potassium Chloride Carbon Dioxide Anion Gap BUN Creatinine Estimated GFR (MDRD) Glucose Calcium Total Bilirubin AST ALT Alkaline Phosphatase Troponin I High Sens B-Natriuretic Peptide 23 Total Protein Albumin Globulin Albumin/Globulin Ratio Lipase - Rads (name of study) 1v chest Radiology: EMP read contemporaneously (Lower lung predominant interstitial pulmonary opacities could reflect pulmonary edema or possibly interstitial infection.) PD MEDICAL DECISION MAKING - ED course ED course: HEART score 4 She has no cough or pulmonary symptoms really referable to an interstitial pneumonia. Her BNP is negative in contrast to the Chest x-ray read. She was offered a an observation stay for serial enzymes and stress testing, but under the understanding that single set of enzymes should be predictive and since she is had 2 days of constant pain. She did not want to stay in the hospital and plans to follow-up with her doctor tomorrow. Departure - Departure Disposition: 01 Home, Self Care Clinical Impression: Chest pain Qualifiers: Chest pain type: unspecified Qualified Code(s): R07.9 - Chest pain, unspecified Condition: Good Record reviewed to determine appropriate education?: Yes Instructions: ED Chest Pain Atypical Unkn Cause Comments: Followup with your doctor tomorrow. Discuss referral for stress testing. Return if worse. Take a baby aspirin daily.
[2019-08-04 18:28] LABS: BASOPHILS # (AUTO) 0.1 10^3/uL (0.0-0.1); BASOPHILS % (AUTO) 0.6 %; EOSINOPHILS # (AUTO) 0.5 10^3/uL (0.0-0.7); EOSINOPHILS % (AUTO) 4.8 %; HGB - HEMOGLOBIN 13.3 g/dL (12.0-16.0); LYMPHOCYTES # (AUTO) 3.2 10^3/uL (1.5-3.5); LYMPHOCYTES % (AUTO) 29.4 %; MEAN CORPUSCULAR HEMOGLOBIN 30.4 pg (27.0-31.0); MEAN CORPUSCULAR HGB CONC 32.4 g/dL (32.0-36.0); MEAN CORPUSCULAR VOLUME 93.8 fL (81.0-99.0); MONOCYTES # (AUTO) 0.6 10^3/uL (0.0-1.0); MONOCYTES % (AUTO) 5.8 %; NEUTROPHILS # (AUTO) 6.4 10^3/uL (1.5-6.6); NEUTROPHILS % (AUTO) 58.9 %; PLT - PLATELET COUNT 253 10^3/uL (130-450); RED BLOOD COUNT 4.38 10^6/uL (4.20-5.40); RED CELL DISTRIBUTION WIDTH 13.6 % (12.0-15.0); WHITE BLOOD COUNT 10.8 x10^3/uL (4.8-10.8)
--- NOTE | 2019-08-04 18:37 | XRAY Report ---
Reason: chest pain Procedure Date: 08/04/2019 Accession Number: [id number] / [id number] Procedure: XR - Chest 1 View X-Ray CPT Code: 72682 FULL RESULT: EXAM: CHEST RADIOGRAPHY EXAM DATE: 08/04/2019 06:29 PM. CLINICAL HISTORY: Chest pain. COMPARISON: CHEST 2 VIEW 09/08/2018 12:19 PM. TECHNIQUE: 1 view. FINDINGS: Lungs/Pleura: Lower lung predominant interstitial pulmonary opacities could reflect pulmonary edema or possibly infection. No evidence for pleural effusion or pneumothorax. Mediastinum: Stable heart size and mediastinum. Other: None. IMPRESSION: 1. Lower lung predominant interstitial pulmonary opacities could reflect pulmonary edema or possibly interstitial infection. RADIA
[2019-08-04 18:46] LABS: CREATININE 0.7 mg/dL (0.4-1.0)
[2019-08-04 18:47] LABS: ALBUMIN 3.6 g/dL (3.2-5.5); ALBUMIN/GLOBULIN RATIO 0.9 (1.0-2.2); BILIRUBIN,TOTAL 0.4 mg/dL (0.2-1.0); CALCIUM 8.8 mg/dL (8.5-10.3); TOTAL PROTEIN 7.4 g/dL (6.7-8.2)
[2019-08-04 19:12] LABS: PLATELET ESTIMATE, MANUAL NORMAL (130-450,000) (NORMAL); PLATELET MORPHOLOGY 1+ LARGE PLATELETS (NORMAL)
[2019-08-04 19:13] LABS: RBC MORPHOLOGY (MULTIPLE) NORMAL APPEARANCE (NORMAL)
[2019-08-04 20:05] VITALS: BP 103/80
== END 2019-08-04 20:12 | disposition home or self-care (01) ==
LOC: ED 18:02
DX: R07.9 Chest pain, unspecified (principal); F17.200 Nicotine dependence, unspecified, uncomplicated
CPT/HCPCS: 36415; 71045; 80053; 83690; 83880; 84484; 85025; 85379; 93005; 99283; 99284

== ENCOUNTER 2019-08-07 10:59 | Outpatient (CLI) | payer MEDICAID | END 2019-08-07 11:00 | disposition home or self-care (01) | LOC: NS 10:59 | PROVIDERS: ATTEND Family Medicine | DX: E66.01 Morbid (severe) obesity due to excess calories (principal); Z68.43 Body mass index [BMI] 50.0-59.9, adult; Z71.3 Dietary counseling and surveillance | CPT/HCPCS: 97803 ==

== ENCOUNTER 2019-08-16 13:41 | Outpatient (CLI) | payer MEDICAID ==
--- NOTE | 2019-08-19 09:14 | Mammography Report ---
Reason: ROUTINE Procedure Date: 08/16/2019 Accession Number: [id number] / [id number] Procedure: MGN - Screening Mammo Dig Bilat CPT Code: Final Report FULL RESULT: EXAM: Screening Mammo Dig Bilat DATE: 08/16/2019 1:54 PM CLINICAL HISTORY: Screening encounter. History of early menses. Family history of breast cancer in the mother at the age of 64. New baseline exam. TECHNIQUE: (B) - Bilateral CC and MLO views were obtained. COMPARISON: None PARENCHYMAL PATTERN: (A) - The breast(s) demonstrate(s) scattered fibroglandular densities. FINDINGS: There are coarse typically benign calcifications. There are no suspicious masses, calcifications, or areas of distortion. IMPRESSION: Benign findings. BI-RADS category 2. RECOMMENDATION: (ANNUAL) - Recommend routine annual screening mammography. BI-RADS CATEGORY: (2) - Benign Findings. STANDARD QUALIFYING STATEMENTS: 1. This examination was not reviewed with the aid of Computer-Aided Detection (CAD). 2. A negative or benign imaging report should not preclude biopsy if clinically suspicious findings are present. 3. Dense breasts may obscure an underlying neoplasm. 4. This examination was reviewed without the aid of 3D breast imaging (tomosynthesis).
== END 2019-08-16 13:42 | disposition home or self-care (01) ==
LOC: DI.N 13:41
PROVIDERS: ATTEND Family Medicine
DX: Z12.31 Encounter for screening mammogram for malignant neoplasm of breast (principal); Z80.3 Family history of malignant neoplasm of breast
CPT/HCPCS: 77067

== ENCOUNTER 2019-08-28 10:56 | Outpatient (CLI) | payer MEDICAID | END 2019-08-28 10:57 | disposition home or self-care (01) | LOC: NS 10:56 | PROVIDERS: ATTEND Family Medicine | DX: E66.01 Morbid (severe) obesity due to excess calories (principal); Z68.43 Body mass index [BMI] 50.0-59.9, adult; Z71.3 Dietary counseling and surveillance | CPT/HCPCS: 97803 ==

== ENCOUNTER 2019-10-31 19:28 | Outpatient (CLI) | payer MEDICAID | END 2019-10-31 19:29 | disposition critical access hospital (66) | LOC: EMS 19:28 | PROVIDERS: ATTEND Surgery | DX: S89.91XA Unspecified injury of right lower leg, initial encounter (principal); W01.0XXA Fall on same level from slipping, tripping and stumbling without subsequent striking against object, initial encounter; Y92.003 Bedroom of unspecified non-institutional (private) residence as the place of occurrence of the external cause | CPT/HCPCS: A0425; A0427; A0999 ==

== ENCOUNTER 2019-10-31 19:50 | Emergency (ER) | payer MEDICAID ==
[2019-10-31 20:01] VITALS: BP 148/87
--- NOTE | 2019-10-31 21:12 | ED Physician Documentation ---
PD HPI LOWER EXT INJURY - Stated complaint Stated Complaint: FELL - RIGHT KNEE INJURY - Chief complaint Chief Complaint: Trauma Ext - History obtained from History obtained from: Patient - History of Present Illness PD HPI LOW EXT INJURY LOCATION: Right, Knee Type of injury: Fall Where injury occurred: Home Timing - onset: Enter time (19:00) Timing - details: Abrupt onset Contributing factors: No: Anticoagulated, Prior ortho surgery (patient says she sustained right knee fracture approximately 1 year ago and "I'm supposed to get both knees replaced") Recently seen: Not recently seen - Additional information Additional information: patient says she fell out of bed tonight at approximately 7 PM, struck right knee on floor; this caused immediate and severe right knee pain. She called 911 due to being unable to weight-bear or effectively move the right knee due to the pain. Given total of 200micrograms fentanyl en route with some relief. Review of Systems Skin: denies: Abrasion (s), Laceration (s) Musculoskeletal: reports: Joint pain, Joint swelling, Pain with weight bearing. 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 Psych: Anxiety Musculoskeletal: Osteoarthritis Derm: Other - Past Surgical History Past Surgical History: Yes General: Cholecystectomy, EGD Ortho: Arthroscopic surgery, Carpal Tunnel surgery, Other HEENT: Other - Present Medications Home Medications: Ambulatory Orders Medication Instructions Recorded Confirmed Albuterol 80 mcg INH BID 09/08/18 10/02/19 Albuterol Sulf [Ventolin Hfa 90 mcg INH Q6H 09/08/18 10/02/19 Inhaler] Alprazolam [Alprazolam Xr] 2 mg PO QID 09/08/18 10/02/19 Brexpiprazole [Rexulti] 1 mg PO DAILY 09/08/18 10/02/19 Furosemide [Lasix] 40 mg ORAL DAILY 09/08/18 10/02/19 Levothyroxine [Synthroid] 25 mcg PO DAILY 09/08/18 10/02/19 Rabeprazole Sodium [Aciphex] 40 mg ORAL DAILY 09/08/18 10/02/19 Sertraline HCl [Zoloft] 100 mg ORAL DAILY 09/08/18 10/02/19 metFORMIN [Glucophage] 500 mg ORAL DAILY 09/08/18 10/02/19 Oxycodone HCl/Acetaminophen 1 - 2 each PO Q6H PRN #10 tablet 11/22/18 10/02/19 [Percocet 5-325 mg Tablet] - Allergies Allergies/Adverse Reactions: Allergies Allergy/AdvReac Type Severity Reaction Status Date / Time Egg Derived Allergy Emesis Verified 10/31/19 19:55 eucalyptus Allergy Anaphylaxis Verified 10/31/19 19:55 naproxen [From Aleve] Allergy Cramps Verified 10/31/19 19:55 Penicillins Allergy Anaphylaxis Verified 10/31/19 19:55 Sulfa (Sulfonamide Allergy Cramps Verified 10/31/19 19:55 Antibiotics) - Social History Does the pt smoke?: Yes Smoking Status: Current every day smoker Does the pt drink ETOH?: No Does the pt have substance abuse?: No - Immunizations Immunizations are current?: Yes - POLST Patient has POLST: No PD ED PE NORMAL - Vitals Vital signs reviewed: Yes - General General: Alert and oriented X 3, No acute distress (NAD at rest, but obvious painful discomfort with movement or palpation right knee), Well develo ped/nourished - HEENT HEENT: Atraumatic - Neuro Neuro: No sensory deficit (LTS intact right foot, toes) PD ED PE EXPANDED - Extremities Extremities: Tenderness, Limited ROM, Swelling, Bruising, Right knee Results - Vitals Vitals: Vital Signs - 24 hr 10/31/19 19:55 Temperature 36.8 C Heart Rate 96 Respiratory 14 Rate Blood Pressure 148/87 H O2 Saturation 94 Oxygen O2 Source Room air - Rads (name of study) right knee xrays Radiology: Prelim report reviewed, See rad report PD MEDICAL DECISION MAKING - ED course Complexity details: reviewed old records, reviewed results, re-evaluated patient, considered differential, d/w patient Departure - Departure Disposition: 01 Home, Self Care Clinical Impression: Contusion of knee, right Condition: Good Discharge Date/Time: 10/31/19 23:45
[2019-10-31] MEDS ORDERED: MORPHINE 2 MG/ML CARPUJECT IVP STA ×2 (21:24→21:42)
--- NOTE | 2019-10-31 22:26 | XRAY Report ---
Reason: fall, injury, pain, tenderness Procedure Date: 10/31/2019 Accession Number: [id number] / [id number] Procedure: XR - Knee 4 View RT CPT Code: Final Report FULL RESULT: EXAM: RIGHT KNEE RADIOGRAPHY EXAM DATE: 10/31/2019 09:50 PM. CLINICAL HISTORY: Fall, injury, pain, tenderness. COMPARISON: KNEE 3 VIEW RT 11/22/2018 7:42 PM. TECHNIQUE: 4 views. FINDINGS: Bones: Normal. No fractures or bone lesions. Joints: Moderate tricompartment degenerative joint disease. No subluxation. No knee joint effusion. Soft Tissues: Normal. No soft tissue swelling. IMPRESSION: No acute findings. See above. RADIA
[2019-10-31] MEDS ORDERED: oxyCODONE 5 MG TABLET ONE (23:12)
== END 2019-10-31 23:45 | disposition home or self-care (01) ==
LOC: EDBD → EDUNIT# → ED 19:50
DX: S80.01XA Contusion of right knee, initial encounter (principal); W06.XXXA Fall from bed, initial encounter; Y92.003 Bedroom of unspecified non-institutional (private) residence as the place of occurrence of the external cause; F17.200 Nicotine dependence, unspecified, uncomplicated
CPT/HCPCS: 73564; 96374; 99283; A9270

== ENCOUNTER 2019-11-12 08:00 | Outpatient (CLI) | payer MEDICAID ==
[2019-11-12 12:37] LABS: HB2 TOTAL 13.7 g/dL; HEMOGLOBIN A1C 0.59 g/dL; HEMOGLOBIN A1C % 6.1 % (4.6-6.2)
[2019-11-12 12:38] LABS: ALBUMIN 3.8 g/dL (3.2-5.5); BILIRUBIN,TOTAL 0.4 mg/dL (0.2-1.0); CALCIUM 8.8 mg/dL (8.5-10.3); CREATININE 0.6 mg/dL (0.4-1.0); TOTAL PROTEIN 7.6 g/dL (6.7-8.2)
[2019-11-12 12:43] LABS: CREATININE,URINE 111.9 mg/dL; MICROALBUM/CREATININE RATIO,UR 1.8 ug/mg (<30.0); MICROALBUMIN,URINE 0.2 mg/dL (0-300.0)
== END 2019-11-12 23:59 | disposition home or self-care (01) ==
LOC: LAB.N 08:00
PROVIDERS: ATTEND Family Medicine
DX: E11.43 Type 2 diabetes mellitus with diabetic autonomic (poly)neuropathy (principal); K31.84 Gastroparesis; I10 Essential (primary) hypertension
CPT/HCPCS: 36415; 80053; 82043; 82570; 83036; 84443

== ENCOUNTER 2019-12-04 16:06 | Outpatient (CLI) | payer MEDICAID | END 2019-12-04 16:07 | disposition short-term general hospital (02) | LOC: EMS 16:06 | PROVIDERS: ATTEND Surgery | DX: S49.90XA Unspecified injury of shoulder and upper arm, unspecified arm, initial encounter (principal); W10.9XXA Fall (on) (from) unspecified stairs and steps, initial encounter; Y92.008 Other place in unspecified non-institutional (private) residence as the place of occurrence of the external cause | CPT/HCPCS: A0425; A0429 ==

== ENCOUNTER 2019-12-24 07:00 | Outpatient (CLI) | payer MEDICAID ==
[2019-12-24 18:41] LABS: HGB - HEMOGLOBIN 12.8 g/dL (12.0-16.0); MEAN CORPUSCULAR HEMOGLOBIN 29.5 pg (27.0-31.0); MEAN CORPUSCULAR HGB CONC 31.1 g/dL (32.0-36.0); MEAN CORPUSCULAR VOLUME 94.7 fL (81.0-99.0); MEAN PLATELET VOLUME 10.8 fL (7.9-10.8); RED BLOOD COUNT 4.34 10^6/uL (4.20-5.40); WHITE BLOOD COUNT 11.6 x10^3/uL (4.8-10.8)
[2019-12-24 19:09] LABS: CALCIUM 8.3 mg/dL (8.5-10.3); CREATININE 0.7 mg/dL (0.4-1.0)
== END 2019-12-24 23:59 | disposition home or self-care (01) ==
LOC: LAB.N 07:00
PROVIDERS: ATTEND Family Medicine
DX: R60.9 Edema, unspecified (principal)
CPT/HCPCS: 36415; 80048; 83880; 85027

== ENCOUNTER 2020-02-14 12:02 | Outpatient (CLI) | payer MEDICAID ==
--- NOTE | 2020-02-14 21:42 | XRAY Report ---
Reason: FRACTURE OF RT HUMERUS Procedure Date: 02/14/2020 Accession Number: [id number] / [id number] Procedure: XR - Shoulder 3 View RT CPT Code: Final Report FULL RESULT: EXAM: RIGHT SHOULDER RADIOGRAPHY EXAM DATE: 02/14/2020 12:37 PM. CLINICAL HISTORY: FRACTURE OF RT HUMERUS. COMPARISON: None. TECHNIQUE: 3 views. FINDINGS: Bones: A faint lucent line is seen through greater tuberosity of right humerus. To be correlated clinically for a mildly displaced proximal right humeral fracture greater tuberosity. Joints: The glenohumeral and acromioclavicular joints are normal. Soft tissues: The visualized hemithorax is unremarkable. No soft tissue swelling. IMPRESSION: A faint lucent line is seen through greater tuberosity of right humerus. To be correlated clinically for a mildly displaced proximal right humeral fracture at greater tuberosity. No malalignment. RADIA
== END 2020-02-14 12:03 | disposition home or self-care (01) ==
LOC: DI 12:02
PROVIDERS: ATTEND Orthopaedic Surgery Adult Reconstructive Orthopaedic Surgery
DX: S42.291A Other displaced fracture of upper end of right humerus, initial encounter for closed fracture (principal)

== ENCOUNTER 2020-04-11 08:51 | Outpatient (CLI) | payer MEDICAID | END 2020-04-11 08:52 | disposition critical access hospital (66) | LOC: EMS 08:51 | PROVIDERS: ATTEND Surgery | DX: R10.30 Lower abdominal pain, unspecified (principal); R42 Dizziness and giddiness; R11.0 Nausea | CPT/HCPCS: A0425; A0427; A0999 ==

== ENCOUNTER 2020-04-11 09:05 | Emergency (ER) | payer MEDICAID ==
--- NOTE | 2020-04-11 09:25 | ED Physician Documentation ---
History of Present Illness - Stated complaint Stated Complaint: ABD PAIN - Chief complaint Chief Complaint: Abd Pain - History obtained from History obtained from: Patient, EMS - History of Present Illness Timing: Yesterday - Additonal information Additional information: 50-year-old type II diabetic with a history of lupus who is on furosemide has been moving recently. She is noted over the past several days cramping in her legs and cramping in her abdomen. She was up most of the night with symptoms. When she began to feel lightheaded and dizzy and at approximately 8 AM this morning her abdominal pain became intense and she became concerned enough to call the ambulance. She has had some diaphoresis some nausea lightheadedness and cramps. Review of Systems Constitutional: reports: Fatigue, Sweats. denies: Fever, Chills Eyes: denies: Decreased vision Ears: denies: Ear pain Nose: denies: Rhinorrhea / runny nose, Congestion Throat: denies: Sore throat Cardiac: denies: Chest pain / pressure, Palpitations Respiratory: denies: Dyspnea, Cough GI: reports: Abdominal Pain, Nausea. denies: Vomiting : denies: Dysuria, Frequency Skin: denies: Rash Musculoskeletal: reports: Back pain, Extremity pain. 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 Psych: Anxiety Musculoskeletal: Osteoarthritis Derm: Other - Past Surgical History Past Surgical History: Yes General: Cholecystectomy, EGD Ortho: Arthroscopic surgery, Carpal Tunnel surgery, Other HEENT: Other - Present Medications Home Medications: Ambulatory Orders Medication Instructions Recorded Confirmed Albuterol 80 mcg INH BID 09/08/18 10/02/19 Albuterol Sulf [Ventolin Hfa 90 mcg INH Q6H 09/08/18 10/02/19 Inhaler] Alprazolam [Alprazolam Xr] 2 mg PO QID 09/08/18 10/02/19 Brexpiprazole [Rexulti] 1 mg PO DAILY 09/08/18 10/02/19 Furosemide [Lasix] 40 mg ORAL DAILY 09/08/18 10/02/19 Levothyroxine [Synthroid] 25 mcg PO DAILY 09/08/18 10/02/19 Rabeprazole Sodium [Aciphex] 40 mg ORAL DAILY 09/08/18 10/02/19 Sertraline HCl [Zoloft] 100 mg ORAL DAILY 09/08/18 10/02/19 metFORMIN [Glucophage] 500 mg ORAL DAILY 09/08/18 10/02/19 Oxycodone HCl/Acetaminophen 1 - 2 each PO Q6H PRN #10 tablet 11/22/18 10/02/19 [Percocet 5-325 mg Tablet] - Allergies Allergies/Adverse Reactions: Allergies Allergy/AdvReac Type Severity Reaction Status Date / Time Egg Derived Allergy Emesis Verified 10/31/19 19:55 eucalyptus Allergy Anaphylaxis Verified 10/31/19 19:55 naproxen [From Aleve] Allergy Cramps Verified 10/31/19 19:55 Penicillins Allergy Anaphylaxis Verified 10/31/19 19:55 Sulfa (Sulfonamide Allergy Cramps Verified 10/31/19 19:55 Antibiotics) - Social History Does the pt smoke?: Yes Smoking Status: Current every day smoker Does the pt drink ETOH?: No Does the pt have substance abuse?: No - Immunizations Immunizations are current?: Yes - POLST Patient has POLST: No PD ED PE NORMAL - Vitals Vital signs reviewed: Yes (hypotensive with wide pulse pressure ) - General General: Alert and oriented X 3, No acute distress, Well developed/nourished - HEENT HEENT: Atraumatic, PERRL, EOMI - Neck Neck: Supple, no meningeal sign, No bony TTP - Cardiac Cardiac: RRR, No murmur - Respiratory Respiratory: No respiratory distress, Clear bilaterally - Abdomen Abdomen: Normal bowel sounds, Soft, Non distended, No organomegaly, Other (mild tenderness left of the midline roselia umbilical without mass or garding. ) - Back Back: No CVA TTP, No spinal TTP - Derm Derm: Normal color, Warm and dry, No rash - Extremities Extremities: No deformity, No edema - Neuro Neuro: Alert and oriented X 3, senior radiation protection technician 2-12 intact, No motor deficit, No sensory deficit, Normal speech Eye Opening: Spontaneous Motor: Obeys Commands Verbal: Oriented GCS Score: 15 - Psych Psych: Normal mood, Normal affect Results - Vitals Vitals: Vital Signs - 24 hr 04/11/20 04/11/20 09:10 11:13 Temperature 36.8 C Heart Rate 90 76 Respiratory 22 16 Rate Blood Pressure 101/56 L 117/68 O2 Saturation 98 97 Oxygen O2 Source Room air - Labs Labs: Laboratory Tests 04/11/20 04/11/20 04/11/20 09:28 09:28 09:36 WBC 12.9 H RBC 4.41 Hgb 12.9 Hct 39.2 MCV 88.9 MCH 29.3 MCHC 32.9 RDW 14.4 Plt Count 442 MPV 9.8 Neut # (Auto) 9.3 H Lymph # (Auto) 2.3 [place] # (Auto) 0.7 Eos # (Auto) 0.4 Baso # (Auto) 0.1 Absolute Nucleated RBC 0.00 Nucleated RBC % 0.0 Sodium Potassium Chloride Carbon Dioxide Anion Gap BUN Creatinine Estimated GFR (MDRD) Glucose Calcium Total Bilirubin AST ALT Alkaline Phosphatase Troponin I High Sens Total Protein Albumin Globulin Albumin/Globulin Ratio Lipase Urine Color YELLOW Urine Clarity CLEAR Urine pH 6.0 Ur Specific [place] 1.020 1.020 Urine Protein NEGATIVE Urine Glucose (UA) NEGATIVE Urine Ketones NEGATIVE Urine Occult Blood NEGATIVE Urine Nitrite NEGATIVE Urine Bilirubin NEGATIVE Urine Urobilinogen 0.2 (NORMAL) Ur Leukocyte Esterase NEGATIVE Ur Microscopic Review NOT INDICATED Urine Culture Comments NOT INDICATED Urine HCG, Qual NEGATIVE 04/11/20 04/11/20 09:36 09:36 WBC RBC Hgb Hct MCV MCH MCHC RDW Plt Count MPV Neut # (Auto) Lymph # (Auto) [place] # (Auto) Eos # (Auto) Baso # (Auto) Absolute Nucleated RBC Nucleated RBC % Sodium 133 L Potassium 3.3 L Chloride 92 L Carbon Dioxide 26 Anion Gap 15.0 H BUN 11 Creatinine 0.8 Estimated GFR (MDRD) 77 L Glucose 118 H Calcium 8.7 Total Bilirubin 0.4 AST 38 ALT 27 Alkaline Phosphatase 124 H Troponin I High Sens 4.0 Total Protein 7.9 Albumin 3.9 Globulin 4.0 Albumin/Globulin Ratio 1.0 Lipase 27 Urine Color Urine Clarity Urine pH Ur Specific [place] Urine Protein Urine Glucose (UA) Urine Ketones Urine Occult Blood Urine Nitrite Urine Bilirubin Urine Urobilinogen Ur Leukocyte Esterase Ur Microscopic Review Urine Culture Comments Urine HCG, Qual Procedures - IVC sono (time) 0920 Bedside IVC sono: IVC measures (cm) (0.62), IVC collapsed c insp (cm) (complete), Significant dehydration (est 3 liter deficit) PD MEDICAL DECISION MAKING - ED course Complexity details: reviewed old records, reviewed results, re-evaluated patient, considered differential, d/w patient ED course: 50-year-old diabetic female on lasix with cramps in her legs and abdomen, dizziness, lightheadedness, nausea and sweats is found to be significantly dehydrated on interrogation the inferior vena cava end and intravenous saline is begun. She has improvement with each liter infused. Cramping is improved. Abdominal pain is improved. I suspect this patient's symptoms are entirely due to overworking and dehydration. I have shared my thoughts with the patient and she will continue to hydrate and reduce her activity. Departure - Departure Disposition: 01 Home, Self Care Clinical Impression: Dehydration Condition: Stable Instructions: ED Dehydration Follow-Up: SNEHAL SEWELL MD [Primary Care Provider] -
[2020-04-11] MEDS ORDERED: SODIUM CHLORIDE 0.9% 1,000 ML IV STA ×2 (09:26→10:26)
[2020-04-11 09:45] LABS: BASOPHILS # (AUTO) 0.1 10^3/uL (0.0-0.1); EOSINOPHILS # (AUTO) 0.4 10^3/uL (0.0-0.7); EOSINOPHILS % (AUTO) 3.4 %; HGB - HEMOGLOBIN 12.9 g/dL (12.0-16.0); LYMPHOCYTES # (AUTO) 2.3 10^3/uL (1.5-3.5); LYMPHOCYTES % (AUTO) 17.4 %; MEAN CORPUSCULAR HEMOGLOBIN 29.3 pg (27.0-31.0); MEAN CORPUSCULAR HGB CONC 32.9 g/dL (32.0-36.0); MEAN CORPUSCULAR VOLUME 88.9 fL (81.0-99.0); MEAN PLATELET VOLUME 9.8 fL (7.9-10.8); MONOCYTES # (AUTO) 0.7 10^3/uL (0.0-1.0); MONOCYTES % (AUTO) 5.5 %; NEUTROPHILS # (AUTO) 9.3 10^3/uL (1.5-6.6); NEUTROPHILS % (AUTO) 72.1 %; PLT - PLATELET COUNT 442 10^3/uL (130-450); RED BLOOD COUNT 4.41 10^6/uL (4.20-5.40); RED CELL DISTRIBUTION WIDTH 14.4 % (12.0-15.0); WHITE BLOOD COUNT 12.9 x10^3/uL (4.8-10.8)
[2020-04-11 09:46] LABS: BILIRUBIN,URINE NEGATIVE (NEGATIVE); GLUCOSE, URINE (UA) NEGATIVE (NEGATIVE); KETONES,URINE (UA) NEGATIVE (NEGATIVE); LEUKOCYTE ESTERASE, URINE NEGATIVE (NEGATIVE); NITRITE,URINE NEGATIVE (NEGATIVE); OCCULT BLOOD,URINE NEGATIVE (NEGATIVE); PROTEIN,URINE NEGATIVE (NEGATIVE); UROBILINOGEN,URINE 0.2 (NORMAL) E.U./dL (NORMAL)
[2020-04-11 09:51] LABS: CLARITY,URINE CLEAR (CLEAR)
[2020-04-11 09:52] LABS: HCG UR QUAL NEGATIVE
[2020-04-11 09:57] LABS: ALBUMIN 3.9 g/dL (3.2-5.5); BILIRUBIN,TOTAL 0.4 mg/dL (0.2-1.0); CALCIUM 8.7 mg/dL (8.5-10.3); CREATININE 0.8 mg/dL (0.4-1.0); TOTAL PROTEIN 7.9 g/dL (6.7-8.2)
[2020-04-11 11:52] VITALS: BP 109/79
== END 2020-04-11 11:59 | disposition home or self-care (01) ==
LOC: EDUNIT# → ED 09:05
DX: E86.0 Dehydration (principal); R10.9 Unspecified abdominal pain; M32.9 Systemic lupus erythematosus, unspecified; Z79.899 Other long term (current) drug therapy; E11.9 Type 2 diabetes mellitus without complications; Z79.84 Long term (current) use of oral hypoglycemic drugs; F17.200 Nicotine dependence, unspecified, uncomplicated
CPT/HCPCS: 36415; 80053; 81001; 81003; 81025; 83690; 84484; 85025; 87086; 96360; 96361; 99284

== ENCOUNTER 2020-08-27 09:22 | Outpatient (CLI) | payer MEDICAID ==
--- NOTE | 2020-08-27 12:22 | XRAY Report ---
PROCEDURE: Ankle 2 View LT INDICATIONS: L FOOT PX TECHNIQUE: 2 views of the ankle were acquired. COMPARISON: None FINDINGS: Bones: 2 views of the left ankle were performed and show no acute fracture or dislocation. The ankle mortise is congruent. A healed distal tibial and distal fibular fracture with residual angulation is identified. Plantar calcaneal spurs are seen. Soft tissues: No tibiotalar joint effusion. Achilles tendon appears normal. IMPRESSION: 1. No acute abnormality. 2. Healed distal tibia and distal fibula diaphyseal fractures with angulation. Reviewed by: Danish Penn on 08/27/2020 12:20 PM [facility] Approved by: Danish Penn on 08/27/2020 12:20 PM [facility] Station ID: [id number]
== END 2020-08-27 23:59 | disposition home or self-care (01) ==
LOC: DI.N 09:22
PROVIDERS: ATTEND Family Medicine
DX: M79.672 Pain in left foot (principal)

== ENCOUNTER 2020-10-06 10:15 | Outpatient (CLI) | payer MEDICAID ==
--- NOTE | 2020-10-08 16:37 | Ultrasound Report ---
PROCEDURE: Head or Neck Soft Tissue INDICATIONS: RT NECK MASS TECHNIQUE: Real-time scanning was performed of the thyroid gland, with image documentation. COMPARISON: None FINDINGS: Right: Thyroid lobe measures 4.5 x 2.4 x 2.4 cm, and is homogeneous in echotexture. Left: Thyroid lobe measures 4.6 x 1.9 x 1.3 cm, and is homogenous in echotexture. Isthmus: 9 mm thick. The palpable area of patient concern localizes to the left submandibular gland. The left submandibula r gland appears slightly more prominent in size compared to the right. No focal abnormalities identif ied on either side. IMPRESSION: 1. Palpable area of patient concern localizes to the left submandibular gland. The left submandibular gland appears slightly more prominent than the right side. 2. Normal sonographic appearance of the thyroid gland. Reviewed by: Nathaniel Olivier MD on 10/06/2020 1:46 PM PST Approved by: Nathaniel Olivier MD on 10/06/2020 1:46 PM PST Station ID: [id number]
== END 2020-10-06 10:16 | disposition home or self-care (01) ==
LOC: DI 10:15
PROVIDERS: ATTEND Internal Medicine
DX: R22.1 Localized swelling, mass and lump, neck (principal)

== ENCOUNTER 2020-10-06 10:32 | Outpatient (CLI) | payer MEDICAID ==
--- NOTE | 2020-10-06 13:32 | XRAY Report ---
PROCEDURE: Lumbar Spine 2 View INDICATIONS: LOW BACK PAIN TECHNIQUE: 2 views of the lumbar spine were acquired. COMPARISON: None. FINDINGS: Bones: 5 [id number] vertebrae are present. There is normal bony alignment. Severe disc and fo raminal narrowing is noted at L5-S1. Mild disc space narrowing is noted at L4-5. No vertebral body co mpression fractures. No suspicious bony lesions. Soft tissues: Overlying bowel gas pattern is normal. No suspicious soft tissue calcifications. IMPRESSION: Disc and foraminal narrowing most notable at L5-S1. Reviewed by: Shruthi Weiss MD on 10/06/2020 1:31 PM PST Approved by: Shruthi Weiss MD on 10/06/2020 1:31 PM PST Station ID: [id number]
== END 2020-10-06 10:33 | disposition home or self-care (01) ==
LOC: DI 10:32
PROVIDERS: ATTEND Acupuncturist
DX: M48.07 Spinal stenosis, lumbosacral region (principal); R22.1 Localized swelling, mass and lump, neck

== ENCOUNTER 2020-11-11 09:32 | Outpatient (CLI) | payer MEDICAID ==
--- NOTE | 2020-11-11 13:58 | XRAY Report ---
PROCEDURE: Thoracic Spine 2 View INDICATIONS: MID BACK PAIN TECHNIQUE: 3 views of the thoracic spine were acquired. COMPARISON: None. FINDINGS: Motion is present limiting areas of fine detail evaluation. Bones: No fractures or dislocations. No suspicious bony lesions. 12 pairs of ribs are noted, and a ppear intact where visualized. Soft tissues: No paravertebral stripe thickening. IMPRESSION: No acute osseous abnormality. Reviewed by: Shruthi Weiss MD on 11/11/2020 1:57 PM [facility] Approved by: Shruthi Weiss MD on 11/11/2020 1:57 PM [facility] Station ID: [id number]
== END 2020-11-11 09:33 | disposition home or self-care (01) ==
LOC: DI 09:32
PROVIDERS: ATTEND Acupuncturist
DX: M54.9 Dorsalgia, unspecified (principal)

== ENCOUNTER 2020-12-08 12:00 | Outpatient (CLI) | payer MEDICAID | END 2020-12-08 23:59 | disposition home or self-care (01) | LOC: COV 12:00 | PROVIDERS: ATTEND Surgery | DX: Z01.812 Encounter for preprocedural laboratory examination (principal); D64.9 Anemia, unspecified; J44.9 Chronic obstructive pulmonary disease, unspecified; E11.9 Type 2 diabetes mellitus without complications; Z20.822 Contact with and (suspected) exposure to COVID-19 ==

== ENCOUNTER 2020-12-11 06:19 | Day surgery (SDC) | payer MEDICAID ==
[2020-12-11] MEDS ORDERED: LACTATED RINGERS 1,000 ML IV ONE ×2 (06:32→08:29)
--- NOTE | 2020-12-11 07:12 | ANESTHESIA ---
Pre-Anesthesia VS, & Labs - Diagnosis anemia - Procedure egd/colonoscopy Vital Signs: Temp Pulse Resp BP Pulse Ox 36.7 C 99 16 146/101 H 98 12/11/20 06:34 12/11/20 06:34 12/11/20 06:34 12/11/20 06:34 12/11/20 06:34 Height: 5 ft 5 in Weight (kg): 142.7 kg Body Mass Index: 52.3 BMI Classification: Morbidly Obese - NPO >8 hours - Is Patient ?: No - Lab Results Current Lab Results: Laboratory Tests 12/11/20 06:48: POC Whole Bld Glucose 166 H Home Medications and Allergies Home Medications: Ambulatory Orders Aspirin [Aspirin EC] 81 mg PO DAILY 12/04/20 Furosemide [Lasix] 80 mg PO DAILY 12/04/20 Levothyroxine [Synthroid] 25 mcg PO QDAC 12/04/20 Lisinopril [Zestril] 10 mg PO DAILY 12/04/20 Medroxyprogesterone Acetate [Depo-Provera] 150 mg IM ONCE 12/04/20 Promethazine [Phenergan] 25 mg PO Q6H PRN 12/04/20 metFORMIN [Glucophage] 500 mg PO DAILY 12/04/20 Albuterol Sulf [Ventolin Hfa Inhaler] 1 - 2 puffs INH Q6H PRN 09/08/18 Alprazolam [Alprazolam Xr] 3 mg PO DAILY 09/08/18 Brexpiprazole [Rexulti] 1 mg PO DAILY 09/08/18 Rabeprazole Sodium [Aciphex] 40 mg ORAL DAILY 09/08/18 Sertraline HCl [Zoloft] 200 mg ORAL DAILY 09/08/18 Aspirin [Aspirin EC] 81 mg PO DAILY 12/04/20 Furosemide [Lasix] 80 mg PO DAILY 12/04/20 Levothyroxine [Synthroid] 25 mcg PO QDAC 12/04/20 Lisinopril [Zestril] 10 mg PO DAILY 12/04/20 Medroxyprogesterone Acetate [Depo-Provera] 150 mg IM ONCE 12/04/20 Promethazine [Phenergan] 25 mg PO Q6H PRN 12/04/20 metFORMIN [Glucophage] 500 mg PO DAILY 12/04/20 Allergies/Adverse Reactions: Allergies Allergy/AdvReac Type Severity Reaction Status Date / Time Egg Derived Allergy Emesis, Verified 12/04/20 10:36 stomach pain eucalyptus Allergy Anaphylaxis Verified 11/11/20 10:01 naproxen [From Aleve] Allergy Cramps Verified 11/11/20 10:01 Penicillins Allergy Anaphylaxis Verified 11/11/20 10:01 Sulfa (Sulfonamide Allergy Cramps Verified 11/11/20 10:01 Antibiotics) Anes History & Medical History - Anesthetic History Family history of Anesthesia Complications: Denies Family history of Malignant Hyperthermia: Denies - Medical History Cardiovascular: reports: None Pulmonary: reports: Asthma, COPD, Pneumonia, Other Gastrointestinal: reports: Pancreatitis, Cirrhosis Urinary: reports: None Neuro: reports: Migraines Musculoskeletal: reports: Osteoarthritis Endocrine/Autoimmune: reports: Type 2 diabetes, Systemic lupus erythematosus Blood Disorders: reports: None Skin: reports: Other Smoking Status: Current every day smoker - Surgical History General: reports: Cholecystectomy, EGD Eyes Ears Nose Throat (EENT): reports: Other Orthopedic: reports: Arthroscopic surgery, Carpal Tunnel surgery, Other Exam Dental: WNL Mouth Openin Fingerbreadth Mallampati classification: III Thyromental Distance: 4-6 cm Respiratory: Lungs clear Cardiovascular: Regular rate Abdomen: Normal bowel sounds Extremities: No clubbing Mental/Cognitive Status: Alert/Oriented X3 Cognitive Status: Within normal limits Plan Anesthesia Type: MAC Consent for Procedure(s) Verified and Reviewed: Yes Code Status: Attempt Resuscitation ASA classification: 3-Severe systemic disease Is this case an emergency?: No
[2020-12-11] MEDS ORDERED: MIDAZOLAM 2 MG/2 ML VIAL ONE (07:35)
[2020-12-11] MEDS ORDERED: LIDO GARGLE 30 ML BOTTLE ONE (07:35)
[2020-12-11] MEDS ORDERED: KETAMINE 500 MG/10 ML VIAL ONE (07:36)
[2020-12-11] MEDS ORDERED: PROPOFOL 500 MG/50 ML 500 MG/50 ML VIAL ONE (07:36)
[2020-12-11] MEDS ORDERED: SODIUM CHLORIDE 0.9% 10 ML ONE (07:38)
[2020-12-11] MEDS ORDERED: BENZOCAINE/TETRACAINE/BUTAMBEN 20 GM TOP ONE (07:42)
[2020-12-11] MEDS ORDERED: LIDO GARGLE 30 ML BOTTLE PO ONE (07:44)
[2020-12-11] MEDS ORDERED: GLYCOPYRROLATE 1 MG/5 ML VIAL ONE (08:10)
[2020-12-11] MEDS ORDERED: PROPOFOL 200 MG/20 ML VIAL IVP ONE ×2 (08:15→08:26)
[2020-12-11] MEDS ORDERED: NALOXONE 0.4 MG/ML VIAL IVP PRN (08:34)
[2020-12-11] MEDS ORDERED: ATROPINE ABBOJECT 1 MG/10 ML SYRINGE IVP PRN (08:34)
[2020-12-11] MEDS ORDERED: HYDROmorphone 0.5 MG/0.5 ML SYRINGE IVP PRN (08:34)
[2020-12-11] MEDS ORDERED: MORPHINE 2 MG/ML CARPUJECT IVP PRN (08:34)
[2020-12-11] MEDS ORDERED: ePHEDrine 50 MG/ML VIAL IVP PRN (08:34)
[2020-12-11] MEDS ORDERED: fentaNYL 100 MCG/2 ML VIAL IVP PRN (08:34)
[2020-12-11] MEDS ORDERED: ONDANSETRON 4 MG/2 ML VIAL IVP PRN (08:34)
[2020-12-11 09:00] VITALS: BP 145/95
[2020-12-11] MEDS ORDERED: LACTATED RINGERS 1,000 ML IV SCH (09:00)
--- NOTE | 2020-12-11 10:11 | ANESTHESIA POST OP EVALUATION ---
Anesthesia Post Eval - Post Anesthesia Eval Vitals: Last Vital Signs Temp 36.4 C L 12/11/20 08:51 Pulse 78 12/11/20 08:59 Resp 14 12/11/20 08:59 BP 145/95 H 12/11/20 08:59 Pulse Ox 100 12/11/20 08:59 CV Function Including HR & BP: positive: Stable Pain Control: positive: Satisfactory Nausea & Vomiting: positive: Negative Mental Status: positive: Baseline Respiratory Status: Airway Patent Hydration Status: Satisfactory Anesthesia Complications: positive: None
== END 2020-12-11 06:20 | disposition home or self-care (01) ==
LOC: SDS 06:19
PROVIDERS: ATTEND Surgery
PROC: 0DB78ZX Excision of Stomach, Pylorus, Via Natural or Artificial Opening Endoscopic, Diagnostic (ICD-10-PCS; principal; 2020-12-11 07:30)
PROC: 0DJD8ZZ Inspection of Lower Intestinal Tract, Via Natural or Artificial Opening Endoscopic (ICD-10-PCS; 2020-12-11 07:30)
DX: K25.9 Gastric ulcer, unspecified as acute or chronic, without hemorrhage or perforation (principal); K57.30 Diverticulosis of large intestine without perforation or abscess without bleeding; D50.9 Iron deficiency anemia, unspecified; J44.9 Chronic obstructive pulmonary disease, unspecified; E11.9 Type 2 diabetes mellitus without complications; E66.01 Morbid (severe) obesity due to excess calories; Z68.43 Body mass index [BMI] 50.0-59.9, adult; F17.210 Nicotine dependence, cigarettes, uncomplicated; M32.9 Systemic lupus erythematosus, unspecified; I10 Essential (primary) hypertension; E03.9 Hypothyroidism, unspecified; K21.9 Gastro-esophageal reflux disease without esophagitis; G89.29 Other chronic pain; M54.9 Dorsalgia, unspecified; K74.69 Other cirrhosis of liver; F41.1 Generalized anxiety disorder; F32.9 Major depressive disorder, single episode, unspecified; F43.10 Post-traumatic stress disorder, unspecified; Z79.82 Long term (current) use of aspirin; Z79.891 Long term (current) use of opiate analgesic; Z79.84 Long term (current) use of oral hypoglycemic drugs; Z79.51 Long term (current) use of inhaled steroids; Z79.899 Other long term (current) drug therapy; Z87.01 Personal history of pneumonia (recurrent); M79.7 Fibromyalgia; A60.9 Anogenital herpesviral infection, unspecified
CPT/HCPCS: 43239; 45378; A9270; J7120

== ENCOUNTER 2021-01-22 10:28 | Outpatient (CLI) | payer MEDICAID ==
[2021-01-22 10:42] LABS: BASOPHILS # (AUTO) 0.1 10^3/uL (0.0-0.1); BASOPHILS % (AUTO) 0.5 %; EOSINOPHILS # (AUTO) 0.4 10^3/uL (0.0-0.7); EOSINOPHILS % (AUTO) 4.1 %; HCT - HEMATOCRIT 41.6 % (37.0-47.0); HGB - HEMOGLOBIN 13.5 g/dL (12.0-16.0); LYMPHOCYTES # (AUTO) 2.5 10^3/uL (1.5-3.5); LYMPHOCYTES % (AUTO) 26.3 %; MEAN CORPUSCULAR HEMOGLOBIN 31.5 pg (27.0-31.0); MEAN CORPUSCULAR HGB CONC 32.5 g/dL (32.0-36.0); MEAN CORPUSCULAR VOLUME 97.2 fL (81.0-99.0); MEAN PLATELET VOLUME 9.9 fL (7.9-10.8); MONOCYTES # (AUTO) 0.5 10^3/uL (0.0-1.0); MONOCYTES % (AUTO) 5.3 %; NEUTROPHILS % (AUTO) 63.3 %; PLT - PLATELET COUNT 262 10^3/uL (130-450); RED BLOOD COUNT 4.28 10^6/uL (4.20-5.40); RED CELL DISTRIBUTION WIDTH 14.1 % (12.0-15.0); WHITE BLOOD COUNT 9.4 x10^3/uL (4.8-10.8)
[2021-01-22 10:55] LABS: CREATININE,URINE 19.5 mg/dL
[2021-01-22 11:00] LABS: ALBUMIN 3.6 g/dL (3.2-5.5); ALBUMIN/GLOBULIN RATIO 1.1 (1.0-2.2); ALKALINE PHOSPHATASE 112 IU/L (42-121); ALT ALANINE AMINOTRANSFERASE 21 IU/L (10-60); AST ASPARTATE AMINOTRANSFERASE 15 IU/L (10-42); BILIRUBIN,TOTAL 0.2 mg/dL (0.2-1.0); BUN - BLOOD UREA NITROGEN 9 mg/dL (6-20); CALCIUM 8.9 mg/dL (8.5-10.3); CARBON DIOXIDE - CO2 27 mmol/L (21-32); CHLORIDE 96 mmol/L (101-111); CHOL/HDL RATIO 7.4 (<4.4); CHOLESTEROL 223 mg/dL; CREATININE 0.7 mg/dL (0.4-1.0); GFR - MDRD 89 (>89); GLUCOSE 174 mg/dL (70-100); HDL CHOLESTEROL 30 mg/dL; LDL CHOLESTEROL,CALCULATED 115 mg/dL; LDL/HDL RATIO 3.8 (<4.4); SODIUM 133 mmol/L (135-145); TRIGLYCERIDES 389 mg/dL; VLDL CHOLESTEROL 78 mg/dL
[2021-01-22 11:01] LABS: MICROALBUMIN,URINE < 0.2 mg/dL (0-300.0)
[2021-01-22 11:12] LABS: THYROID STIMULATING HORMONE 1.56 uIU/mL (0.34-5.60)
[2021-01-22 11:18] LABS: FERRITIN 50.9 ng/mL (11.0-306.8)
[2021-01-22 12:21] LABS: ESTIMATED AVERAGE GLUCOSE 140 mg/dL (70-100); HEMOGLOBIN A1c% 6.5 % (4.27-6.07)
== END 2021-01-22 10:29 | disposition home or self-care (01) ==
LOC: LAB 10:28
PROVIDERS: ATTEND Family Medicine
DX: E11.9 Type 2 diabetes mellitus without complications (principal); D64.9 Anemia, unspecified; N89.8 Other specified noninflammatory disorders of vagina
CPT/HCPCS: 36415; 80053; 80061; 82043; 82570; 82728; 83036; 83721; 84443; 85025; 87086

== ENCOUNTER 2021-02-01 18:36 | Outpatient (CLI) | payer MEDICAID | END 2021-02-01 18:37 | disposition critical access hospital (66) | LOC: EMS 18:36 | DX: M25.551 Pain in right hip (principal) | CPT/HCPCS: A0425; A0427; A0999 ==

== ENCOUNTER 2021-02-01 18:50 | Emergency (ER) | payer MEDICAID ==
[2021-02-01] MEDS ORDERED: HYDROmorphone 1 MG/ML CARPUJECT IVP STA ×2 (19:18→21:04)
--- NOTE | 2021-02-01 19:19 | ED Physician Documentation ---
PD HPI LOWER EXT INJURY - Stated complaint Stated Complaint: GLF/ R HIP PX - Chief complaint Chief Complaint: Trauma Ext - History obtained from History obtained from: Patient, EMS - History of Present Illness PD HPI LOW EXT INJURY LOCATION: Right (50-year-old woman with history of lupus and fibromyalgia tripped on a area rug and went directly down onto her right hip with severe pain there. She is unable to walk or bear weight. No other injuries.) Review of Systems Ten Systems: 10 systems reviewed and negative Constitutional: reports: Reviewed and negative Cardiac: reports: Reviewed and negative Respiratory: reports: Reviewed and negative PD PAST MEDICAL HISTORY - Past Medical History Cardiovascular: None Respiratory: Asthma, COPD, Pneumonia, Other Neuro: Migraines Endocrine/Autoimmune: Type 2 diabetes, Systemic lupus erythematosus GI: Pancreatitis, Cirrhosis [employer]AD[employer]IC SUPPORT SPECIALIST: None : None Psych: Anxiety Musculoskeletal: Osteoarthritis Derm: Other - Past Surgical History Past Surgical History: Yes General: Cholecystectomy, EGD Ortho: Arthroscopic surgery, Carpal Tunnel surgery, Other HEENT: Other - Present Medications Home Medications: Ambulatory Orders Medication Instructions Recorded Confirmed Albuterol Sulf [Ventolin Hfa 1 - 2 puffs INH Q6H PRN 09/08/18 12/23/20 Inhaler] Alprazolam [Alprazolam Xr] 3 mg PO DAILY 09/08/18 12/23/20 Brexpiprazole [Rexulti] 1 mg PO DAILY 09/08/18 12/23/20 Rabeprazole Sodium [Aciphex] 40 mg ORAL DAILY 09/08/18 12/23/20 Sertraline HCl [Zoloft] 200 mg ORAL DAILY 09/08/18 12/23/20 Oxycodone HCl/Acetaminophen 1 - 2 each PO Q6H PRN #10 tablet 11/22/18 12/23/20 [Percocet 5-325 mg Tablet] Aspirin [Aspirin EC] 81 mg PO DAILY 12/04/20 12/23/20 Furosemide [Lasix] 80 mg PO DAILY 12/04/20 12/23/20 Levothyroxine [Synthroid] 25 mcg PO QDAC 12/04/20 12/23/20 Lisinopril [Zestril] 10 mg PO DAILY 12/04/20 12/23/20 Medroxyprogesterone Acetate 150 mg IM ONCE 12/04/20 12/23/20 [Depo-Provera] Promethazine [Phenergan] 25 mg PO Q6H PRN 12/04/20 12/23/20 metFORMIN [Glucophage] 500 mg PO DAILY 12/04/20 12/23/20 - Allergies Allergies/Adverse Reactions: Allergies Allergy/AdvReac Type Severity Reaction Status Date / Time Egg Derived Allergy Emesis, Verified 02/01/21 18:57 stomach pain eucalyptus Allergy Anaphylaxis Verified 02/01/21 18:57 naproxen [From Aleve] Allergy Cramps Verified 02/01/21 18:57 Penicillins Allergy Anaphylaxis Verified 02/01/21 18:57 Sulfa (Sulfonamide Allergy Cramps Verified 02/01/21 18:57 Antibiotics) - Social History Does the pt smoke?: Yes Smoking Status: Current every day smoker Does the pt drink ETOH?: No Does the pt have substance abuse?: No - Immunizations Immunizations are current?: Yes - POLST Patient has POLST: No PD ED PE NORMAL - Vitals Vital signs reviewed: Yes - General General: Alert and oriented X 3, No acute distress - HEENT HEENT: PERRL, EOMI - Neck Neck: Supple, no meningeal sign, No bony TTP - Cardiac Cardiac: RRR, No murmur - Respiratory Respiratory: No respiratory distress, Clear bilaterally - Abdomen Abdomen: Normal bowel sounds, Soft, Non tender - Extremities Extremities: Other (She is tender over the right hip laterally. There is no deformity. She is holding it flexed but can extend it. She has pain with significant internal and external rotation but is not exquisite.) - Neuro Neuro: Alert and oriented X 3, Normal speech - Psych Psych: Normal mood, Normal affect Results - Vitals Vitals: Vital Signs - 24 hr 02/01/21 18:58 Temperature 36.6 C Heart Rate 66 Respiratory 18 Rate Blood Pressure 157/91 H O2 Saturation 95 Oxygen O2 Source Room air - Rads (name of study) R hip XR Radiology: EMP read contemporaneously (NAD) Pelvis CT Radiology: EMP read contemporaneously (NAD) PD MEDICAL DECISION MAKING - ED course ED course: 50-year-old woman fell and hurt her right hip after ground-level fall. X-rays were negative and this was followed up with CT imaging given some limitation due to body habitus. This was also negative. Subsequent to that she was able to walk and bear weight without visible abnormality but felt better with a walker. Departure - Departure Disposition: 01 Home, Self Care Clinical Impression: Contusion of right hip Condition: Good Record reviewed to determine appropriate education?: Yes Instructions: ED Contusion Hip Comments: Continue current pain management regimen. Return if worsening. Follow-up with your doctor in a week for repeat evaluation if not significantly improved.
--- NOTE | 2021-02-01 19:46 | XRAY Report ---
PROCEDURE: Hip w/Pelvis 2-3V RT INDICATIONS: hip inj TECHNIQUE: AP pelvis with lateral view(s) of the bilateral hip(s). COMPARISON: None. FINDINGS: Bones: No fractures or dislocations. Pelvic ring appears intact. No suspicious bony lesions. Soft tissues: The visualized bowel gas pattern is normal. No suspicious soft tissue calcifications. IMPRESSION: No acute fracture. No osseous lesion. If symptoms and/or clinical suspicion for patholog y continue, further assessment with repeat plain films, or advanced imaging (e.g., CT, MRI, or bone s can) is recommended for further assessment. Reviewed by: Jorge Buchanan MD on 02/01/2021 7:44 PM PDT Approved by: Jorge Buchanan MD on 02/01/2021 7:44 PM PDT Station ID: [id number]
[2021-02-01] MEDS ORDERED: KETOROLAC 30 MG/ML VIAL IVP STA (19:55)
--- NOTE | 2021-02-01 20:59 | CT Report ---
PROCEDURE: PELVIS WO INDICATIONS: R hip inj TECHNIQUE: Noncontrast 3 mm axial sections acquired through the bony pelvis, with coronal and sagittal reformatt ing. For radiation dose reduction, the following was used: automated exposure control, adjustment of mA and/or kV according to patient size. COMPARISON: Plain films of the pelvis dated 02/01/2021 FINDINGS: Image quality: Excellent. Bones: No fracture nor osseous lesion. Soft tissues: Visualized soft tissues are grossly unremarkable. No regional adenopathy. Bowel loops grossly unremarkable. No free fluid. IMPRESSION: No fracture. Reviewed by: Jorge Buchanan MD on 02/01/2021 8:57 PM PDT Approved by: Jorge Buchanan MD on 02/01/2021 8:57 PM PDT Station ID: [id number]
[2021-02-01 21:14] VITALS: BP 147/71
== END 2021-02-01 21:22 | disposition home or self-care (01) ==
LOC: EDUNIT# → ED 18:50
DX: S70.01XA Contusion of right hip, initial encounter (principal); W01.0XXA Fall on same level from slipping, tripping and stumbling without subsequent striking against object, initial encounter; L93.0 Discoid lupus erythematosus; M79.7 Fibromyalgia; E11.9 Type 2 diabetes mellitus without complications; J44.9 Chronic obstructive pulmonary disease, unspecified; F41.9 Anxiety disorder, unspecified; M19.90 Unspecified osteoarthritis, unspecified site; Z79.84 Long term (current) use of oral hypoglycemic drugs; Z79.51 Long term (current) use of inhaled steroids; Z79.82 Long term (current) use of aspirin; Z79.899 Other long term (current) drug therapy
CPT/HCPCS: 72192; 73502; 96374; 96375; 96376; 99283; 99284; J1170

== ENCOUNTER 2021-02-12 09:26 | Outpatient (CLI) | payer MEDICAID ==
--- NOTE | 2021-02-12 15:30 | DEXA Report ---
PROCEDURE: Dexa Spine and/or Hip INDICATIONS: OSTEOPENIA TECHNIQUE: Dual energy x-ray absorptiometry (DXA) was performed on a BrainSINS System. Regions measur ed are the AP Spine, femoral neck, and if needed forearm. COMPARISON: None. FINDINGS: Lumbar Spine: Bone Mineral Density 1.254 g/cm/cm,T score 0.6, normal Left Hip: Bone Mineral Density 1.160 g/cm/cm,T score 1.2, normal Left Femoral Neck: Bone Mineral Density 1.106 g/cm/cm, T score 0.5, normal (T score greater or equal to -1.0: NORMAL) (T score from -1.1 to -2.4: OSTEOPENIA) (T score less than or equal to -2.5 to: OSTEOPOROSIS) Impression: Normal bone mineral density at the lumbosacral spine, left hip and left femoral neck. Patients with diagnosis of osteoporosis or osteopenia should have regular bone mineral density assess ment. For those eligible for Medicare, routine testing is allowed once every 2 years. Testing frequ ency can be increased for patients who have rapidly progressing disease or for those who are receivin g medical therapy to restore bone mass. Reviewed by: Calin Burks MD on 02/12/2021 3:29 PM PDT Approved by: Calin Burks MD on 02/12/2021 3:29 PM PDT Station ID: [id number]
== END 2021-02-12 09:27 | disposition home or self-care (01) ==
LOC: DI 09:26
PROVIDERS: ATTEND Obstetrics & Gynecology
DX: M85.80 Other specified disorders of bone density and structure, unspecified site (principal)

== ENCOUNTER 2021-02-17 08:53 | Outpatient (CLI) | payer MEDICAID ==
--- NOTE | 2021-02-18 12:20 | Mammography Report ---
BILATERAL DIGITAL DIAGNOSTIC MAMMOGRAM 3D/2D: 02/17/2021 CLINICAL: Occasional left breast pain. Comparison is made to exam dated: 08/16/2019 mammogram - [facility]. There are sca ttered fibroglandular elements in both breasts. No significant masses, calcifications, or other findings are seen in either breast. IMPRESSION: INCOMPLETE: NEEDS ADDITIONAL IMAGING EVALUATION There is no abnormality seen in the left breast to correspond with the area of clinical concern and p ain indicated by square marker in the middle depth in the upper inner quadrant. An ultrasound is rec ommended for further evaluation and is scheduled to immediately follow this examination. This exam was interpreted at Station ID: [id number]. NOTE: For mammograms, a report in lay terms will be sent to the patient. Approximately 15% of breast malignancies will not be visualized mammographically. In the management of a palpable breast mass, a negative mammogram must not discourage biopsy of a clinically suspicious lesion. Electronically Signed By: Nathaniel Olivier M.D. aty/:02/17/2021 10:36:11 ACR BI-RADS Category 0: Incomplete 3340F PARENCHYMAL PATTERN: (A) - The breast(s) demonstrate(s) scattered fibroglandular densities. BI-RADS CATEGORY: (0) - 0 Ultrasound [id number] Immediate follow-up LATERALITY: (L)
--- NOTE | 2021-02-18 12:20 | Ultrasound Report ---
LIMITED ULTRASOUND OF LEFT BREAST AND AXILLA: 02/17/2021 CLINICAL: Focal left breast pain. Comparison is made to exams dated: 02/17/2021 mammogram and 08/16/2019 mammogram - [facility]. Color flow and real-time ultrasound of the left breast 10 o'clock, and axilla regions were performed . Wang scale images of the real-time examination were reviewed. There is a 1 cm x 0.5 cm x 0.9 cm wider than tall oval mass with a circumscribed margin in the left b reast at 10 o'clock middle depth 9 cm from the nipple. This oval mass is hyperechoic with no posteri or acoustic shadowing or enhancement. This correlates as palpated, to the reported pain, and with ar ea of clinical concern. Color flow imaging demonstrates that there is no vascularity present. No significant abnormalities were seen sonographically in the left axilla. IMPRESSION: PROBABLY BENIGN The 1 cm x 0.5 cm x 0.9 cm wider than tall oval mass in the left breast resembles a lipoma and is pro bably benign. A follow-up left ultrasound in 6 months is recommended to demonstrate stability. Findings and recommendations were conveyed to the patient during today's evaluation. This exam was interpreted at Station ID: [id number]. Electronically Signed By: Nathaniel Olivier M.D. aty/:02/17/2021 10:51:02 Ultrasound BI-RADS: 3 Probably benign BI-RADS CATEGORY: (3) - 3 Ultrasound [id number] 6 month follow-up LATERALITY: (L)
== END 2021-02-17 08:54 | disposition home or self-care (01) ==
LOC: DI 08:53
PROVIDERS: ATTEND Family Medicine
DX: N63.22 Unspecified lump in the left breast, upper inner quadrant (principal); R22.1 Localized swelling, mass and lump, neck

== ENCOUNTER 2021-02-17 08:55 | Outpatient (CLI) | payer MEDICAID ==
--- NOTE | 2021-02-17 13:59 | Ultrasound Report ---
PROCEDURE: Head or Neck Soft Tissue INDICATIONS: LOCALIZED SWELLING, LUMP, MASS NECK TECHNIQUE: Real time scanning was performed of the neck region of interest, with image documentation . COMPARISON: None. FINDINGS: Submandibular glands are identified bilaterally. The right gland measures 4.8 x 1.5 x 3.47 m. The left gland measures 4.6 x 1.5 x 3.5 cm. There are no areas of abnormal echogenicity. No focal lesions. No areas of calcification. IMPRESSION: Symmetrical, unremarkable appearance of submandibular glands bilaterally. Reviewed by: Shruthi Weiss MD on 02/17/2021 1:58 PM PDT Approved by: Shruthi Weiss MD on 02/17/2021 1:58 PM PDT Station ID: [id number]
== END 2021-02-17 08:56 | disposition home or self-care (01) ==
LOC: DI 08:55
PROVIDERS: ATTEND Internal Medicine
DX: R22.1 Localized swelling, mass and lump, neck (principal)

== ENCOUNTER 2021-03-12 10:00 | Outpatient (CLI) | payer MEDICAID | END 2021-03-12 23:59 | disposition home or self-care (01) | LOC: COV 10:00 | PROVIDERS: ATTEND Surgery | DX: Z01.812 Encounter for preprocedural laboratory examination (principal); N63.0 Unspecified lump in unspecified breast; E11.9 Type 2 diabetes mellitus without complications; Z20.822 Contact with and (suspected) exposure to COVID-19 ==

== ENCOUNTER 2021-03-17 07:27 | Day surgery (SDC) | payer MEDICAID ==
[~2021-03-17 07:27] MED LIST: BUFFERED LIDOCAINE 10 ML SYRINGE ONE; ceFAZolin 2 GM/50 ML 0 GM/0 ML BAG IV ONE
--- OUTSIDE RECORDS SUMMARY | 2021-03-17 07:30 | EXTERNAL MEDICAL SUMMARY RPT | Continuity of Care Document ---
:1970 Demographics Phone Unavailable Preferred Language Pashto Marital Status Unknown Mu-Ism Affiliation Unknown Race Unknown Ethnic Group Unknown Author Organization [place] Address [address] [phone] Phone Care Team Providers Name Role Phone Rodriguez Unavailable Unavailable Rodriguez Unavailable Unavailable Allergies Encounters Medications date description facility [id number] Acetaminophen 325 MG Oral Tablet [facility] [id number] Oxycodone Hydrochloride 5 MG Oral Table [facility] [id number] Metformin hydrochloride 500 MG Oral Tab [facility] [id number] tiotropium 0.018 MG/ACTUAT Inhalant [facility] [id number] 24 HR Alprazolam 3 MG Extended Release Tablet [facility] [id number] Lisinopril 10 MG Oral Tablet [facility] [id number] Furosemide 40 MG Oral Tablet [facility] [id number] Sertraline 25 MG Oral Tablet [facility] Problems date description facility [id number] Stiffness of right shoulder, not elsewh [facility] [id number] Encounter for preprocedural laboratory examination [facility] [id number] Contact with and (suspected) exposure t o COVID-[address] [place] [address] Procedures date description facility [id number] [facility] [id number] [facility] Results Vital Signs date measurement value source [id number] weight_standard 309 lb [id number] weight_metric 140.16 kg [id number] temperature_standard 98.4 F [id number] temperature_metric 36.89 C [id number] respiration_rate 16 /min [id number] height_standard 65 in [id number] height_metric 165.1 cm 07590384 heart_rate 93 /min 32000411 BP_systolic 148 mm[Hg] 85161878 BP_diastolic 93 mm[Hg] 86097729 BMI 51.4 kg/m2
[2021-03-17] MEDS ORDERED: ONDANSETRON 4 MG/2 ML VIAL IVP PRN ×3 (08:22→11:47)
[2021-03-17] MEDS ORDERED: KETOROLAC 15 MG/ML VIAL IVP PRN (08:23)
--- NOTE | 2021-03-17 08:25 | ANESTHESIA ---
Pre-Anesthesia VS, & Labs - Diagnosis L breast mass - Procedure L breast biopsy Vital Signs: Temp Pulse Resp BP Pulse Ox 36.0 C L 91 20 150/100 H 96 03/17/21 07:49 03/17/21 07:49 03/17/21 07:49 03/17/21 07:49 03/17/21 07:49 Height: 5 ft 4 in Weight (kg): 146.5 kg Body Mass Index: 55.4 BMI Classification: Morbidly Obese - NPO >8 hours - Is Patient ?: Waiver signed - Lab Results Current Lab Results: Laboratory Tests 03/17/21 07:54: POC Whole Bld Glucose 119 H Home Medications and Allergies Home Medications: Ambulatory Orders Albuterol Sulf [Ventolin Hfa Inhaler] 1 - 2 puffs INH Q4HR PRN 03/16/21 Alprazolam [Xanax] 1 mg PO TID 03/16/21 Furosemide [Lasix] 120 mg PO DAILY 03/16/21 Tiotropium [place] [Spiriva Respimat] 1 puffs PO DAILY 03/16/21 Active Medications Ondansetron HCl (Ondansetron 4 Mg/2 Ml Vial) 4 mg IVP Q4HR PRN PRN Reason: Nausea / Vomiting Albuterol Sulf [Ventolin Hfa Inhaler] 1 - 2 puffs INH Q6H PRN 09/08/18 Alprazolam [Alprazolam Xr] 3 mg PO DAILY 09/08/18 Brexpiprazole [Rexulti] 1 mg PO DAILY 09/08/18 Rabeprazole Sodium [Aciphex] 40 mg ORAL DAILY 09/08/18 Sertraline HCl [Zoloft] 200 mg ORAL DAILY 09/08/18 Aspirin [Aspirin EC] 81 mg PO DAILY 12/04/20 Furosemide [Lasix] 80 mg PO DAILY 12/04/20 Levothyroxine [Synthroid] 25 mcg PO QDAC 12/04/20 Lisinopril [Zestril] 10 mg PO DAILY 12/04/20 Medroxyprogesterone Acetate [Depo-Provera] 150 mg IM ONCE 12/04/20 Promethazine [Phenergan] 25 mg PO Q6H PRN 12/04/20 metFORMIN [Glucophage] 500 mg PO DAILY 12/04/20 Albuterol Sulf [Ventolin Hfa Inhaler] 1 - 2 puffs INH Q4HR PRN 03/16/21 Alprazolam [Xanax] 1 mg PO TID 03/16/21 Furosemide [Lasix] 120 mg PO DAILY 03/16/21 Tiotropium [place] [Spiriva Respimat] 1 puffs PO DAILY 03/16/21 Allergies/Adverse Reactions: Allergies Allergy/AdvReac Type Severity Reaction Status Date / Time Egg Derived Allergy Emesis, Verified 02/10/21 10:11 stomach pain eucalyptus Allergy Anaphylaxis Verified 02/10/21 10:11 naproxen [From Aleve] Allergy Cramps Verified 02/10/21 10:11 Penicillins Allergy Anaphylaxis Verified 02/10/21 10:11 Sulfa (Sulfonamide Allergy Cramps Verified 02/10/21 10:11 Antibiotics) Anes History & Medical History - Anesthetic History Anesthesia Complications: reports: No previous complications Family history of Anesthesia Complications: Denies Family history of Malignant Hyperthermia: Denies - Medical History Cardiovascular: reports: Hypertension Pulmonary: reports: Asthma Gastrointestinal: reports: GERD, Cirrhosis Urinary: reports: None Neuro: reports: Migraines Musculoskeletal: reports: Osteoarthritis, Fibromyalgia Endocrine/Autoimmune: reports: Type 2 diabetes Blood Disorders: reports: None Skin: reports: Other Smoking Status: Current every day smoker - Surgical History General: reports: Cholecystectomy Eyes Ears Nose Throat (EENT): reports: Rhinoplasty Orthopedic: reports: Arthroscopic surgery, Carpal Tunnel surgery Exam General: Alert, Oriented x3, Cooperative Dental: Dentures full Upper, Dentures full Lower Mouth Openin Fingerbreadth Neck Mobility: Normal Mallampati classification: III Thyromental Distance: less than 4 cm Respiratory: Lungs clear Cardiovascular: Regular rate Plan Anesthesia Type: General Consent for Procedure(s) Verified and Reviewed: Yes Code Status: Attempt Resuscitation ASA classification: 3-Severe systemic disease Is this case an emergency?: No
[2021-03-17] MEDS ORDERED: MIDAZOLAM 2 MG/2 ML VIAL ONE (08:28)
[2021-03-17] MEDS ORDERED: fentaNYL 100 MCG/2 ML VIAL ONE (08:29)
[2021-03-17] MEDS ORDERED: PROPOFOL 200 MG/20 ML VIAL IVP ONE (08:32)
[2021-03-17] MEDS ORDERED: LIDOCAINE-MPF 2% 5 ML VIAL ONE (08:32)
[2021-03-17] MEDS ORDERED: NALOXONE 0.4 MG/ML VIAL IVP PRN (08:53)
[2021-03-17] MEDS ORDERED: fentaNYL 100 MCG/2 ML VIAL IVP PRN (08:53)
[2021-03-17] MEDS ORDERED: ePHEDrine 50 MG/ML VIAL IVP PRN (08:53)
[2021-03-17] MEDS ORDERED: ATROPINE ABBOJECT 1 MG/10 ML SYRINGE IVP PRN (08:53)
[2021-03-17] MEDS ORDERED: HYDROmorphone 0.5 MG/0.5 ML SYRINGE IVP PRN (08:53)
[2021-03-17] MEDS ORDERED: MORPHINE 2 MG/ML CARPUJECT IVP PRN (08:53)
[2021-03-17] MEDS ORDERED: LACTATED RINGERS 1,000 ML IV SCH (09:00)
[2021-03-17] MEDS ORDERED: BUPIVACAINE 0.25% PF 30 ML VIAL ONE (09:11)
[2021-03-17] MEDS ORDERED: LIDOCAINE MPF 2%-EPI 1:200000 20 ML VIAL ONE (09:35)
[2021-03-17] MEDS ORDERED: BUPIVACAINE 0.25% PF 30 ML VIAL SUBQ ONE ×2 (10:30→10:59)
[2021-03-17] MEDS ORDERED: SUGAMMADEX 200 MG/2 ML VIAL IVP ONE (11:03)
[2021-03-17] MEDS ORDERED: LACTATED RINGERS 1,000 ML IV ONE (11:40)
[2021-03-17] MEDS ORDERED: IPRATROPIUM/ALBUTEROL 3 ML NEB INH ONE (11:43)
[2021-03-17] MEDS ORDERED: ACETAMINOPHEN 1,000 MG/100 ML 100 ML IV ONE ×2 (11:45→11:47)
[2021-03-17] MEDS ORDERED: BUFFERED LIDOCAINE 10 ML SYRINGE IU ONE (11:45)
[2021-03-17] MEDS ORDERED: IPRATROPIUM/ALBUTEROL 3 ML NEB INH PRN (11:46)
[2021-03-17] MEDS ORDERED: HYDROcod/ACETAM 5/325 MG TABLET PO PRN (11:47)
[2021-03-17] MEDS ORDERED: LORazepam 2 MG/ML VIAL IVP PRN (11:51)
--- NOTE | 2021-03-17 11:51 | OPERATIVE REPORT ---
Operative Report - General Procedure Date: 03/17/21 Planned Procedure: needle localized left breast biopsy Pre-Op Diagnosis: left breast abnormality by ultrasound Procedure Performed: left breast needle localized biopsy Post Op Diagnosis: same - Procedure Note Primary Surgeon: danielito trejo Anesthesia Technique: General ET tube, Local Pathology: sent to pathology Estimated Blood Loss (mL): 15 Drain/Tube Type: Other (none) Indications: as above / abnormal mammogram/ probably benign reading Findings: tissue around wire removed Complications: none
[2021-03-17] MEDS ORDERED: LORazepam 2 MG/ML VIAL ONE (11:55)
[2021-03-17] MEDS ORDERED: HYDROcod/ACETAM 5/325 MG TABLET ONE (12:35)
[2021-03-17 13:14] VITALS: BP 132/89
--- NOTE | 2021-03-17 14:53 | ANESTHESIA POST OP EVALUATION ---
Anesthesia Post Eval - Post Anesthesia Eval Vitals: Last Vital Signs Temp 36.2 C L 03/17/21 13:00 Pulse 74 03/17/21 13:00 Resp 15 03/17/21 13:00 BP 132/89 H 03/17/21 13:00 Pulse Ox 95 03/17/21 13:00 CV Function Including HR & BP: Stable Pain Control: Satisfactory Nausea & Vomiting: Negative Mental Status: Baseline Respiratory Status: Airway Patent Hydration Status: Satisfactory Anesthesia Complications: None
--- NOTE | 2021-03-18 08:09 | Mammography Report ---
SPECIMEN LEFT BREAST: 03/17/2021 CLINICAL: Post left lumpectomy. Correlation is made to exams dated: 03/17/2021 mammogram, 03/17/2021 localization, 02/17/2021 ultrasound, 02/17/2021 mammogram, and 08/16/2019 mammogram - [facility]. A surgical specimen was imaged for the palpable 1 cm x 0.5 cm x 0.9 cm mass located in the left [address] at 10 o'clock middle depth 9 cm from the nipple. This was described on the previous ultrasound re port. IMPRESSION: SPECIMEN The imaged specimen includes the distal portion of the localization wire. This exam was interpreted at Station ID: [id number]. Dandy garcia/nii:03/17/2021 11:23:59 BI-RADS CATEGORY: () - Unspecified - other recall n/a LATERALITY: (B)
--- NOTE | 2021-03-18 08:09 | Mammography Report ---
UNILATERAL LEFT DIGITAL DIAGNOSTIC MAMMOGRAM 3D/2D: 03/17/2021 CLINICAL: Post left breast wire localization. Comparison is made to exams dated: 03/17/2021 localization, 02/17/2021 ultrasound, 02/17/2021 mammogram, a nd 08/16/2019 mammogram - [facility]. There are scattered fibroglandular elements i n left breast. A percutateous localization wire is seen in the upper inner quadrant of the left breast. The targeted abnormality was not seen on prior mammograms. The reinforced portion of the distal wire is located a t the D9-E10 location on the CC image and the D3-E3 location on the ML image. No significant masses, calcifications, or other findings are seen in the breast. IMPRESSION: Localization wire is seen at the upper inner quadrant of the left breast. This exam was interpreted at Station ID: [id number]. NOTE: For mammograms, a report in lay terms will be sent to the patient. Approximately 15% of breast malignancies will not be visualized mammographically. In the management of a palpable breast mass, a negative mammogram must not discourage biopsy of a clinically suspicious lesion. Electronically Signed By: Dandy garcia/nii:03/17/2021 10:19:58 ACR BI-RADS Category n/a PARENCHYMAL PATTERN: (A) - The breast(s) demonstrate(s) scattered fibroglandular densities. BI-RADS CATEGORY: () - Unspecified - other recall n/a LATERALITY: (B)
--- NOTE | 2021-03-18 08:09 | Ultrasound Report ---
ULTRASOUND GUIDED WIRE LOCALIZATION LEFT BREAST WITH POST DIGITAL MAMMOGRAPHIC AND ULTRASOUND IMAGING : 03/17/2021 CLINICAL: Left Breast wire placement. Correlation is made to exams dated: 02/17/2021 ultrasound, 02/17/2021 mammogram, and 08/16/2019 mammogram - [facility]. A wire localization using ultrasound guidance was performed for the palpable 1 cm x 0.5 cm x 0.9 cm m ass located in the left breast at 10 o'clock middle depth 9 cm from the nipple. This was described o n the previous ultrasound report. The skin was prepped in the usual manner. Local anesthetic was ad ministered to the access site. The localization was approached from the lateral aspect. A J-hook wi re was inserted into the targeted area through an introducer device under ultrasound guidance, and th e reinforced portion of the wire was seen to be traversing the targeted lesion. A sterile dressing w as applied to the access site. Post placement digital mammographic and ultrasound imaging was obtain ed. IMPRESSION: WIRE LOCALIZATION Wire localization for the 1 cm x 0.5 cm x 0.9 cm mass in the left breast at 10 o'clock middle depth 9 cm from the nipple was successful with no apparent post procedure complications. This exam was interpreted at Station ID: [id number]. Dandy Lr M.D. ar/:03/17/2021 10:12:52 BI-RADS CATEGORY: () - Unspecified - other recall n/a LATERALITY: (B)
--- NOTE | 2021-04-02 15:40 | OPERATIVE REPORT ---
Operative Report - General Procedure Date: 03/17/21 - Other Other Information/Narrative: Breast biopsy addendum The patient was prepped identified brought to the operating room and placed in supine position. Laryngeal mask anesthesia was induced. Sequential compression devices were placed. Dressing was removed from the needle localization left breast area. She was prepped and draped in a sterile fashion. Given her allergies antibiotics were not given. Local anesthetic was given to the area. A 3 and half centimeter incision was made in the direction of Markos's lines in the location of the wire. With sharp dissection a core of breast tissue was removed around the entire wire. The specimen was sent to radiology for confirmation. Hemostasis was achieved with cautery. For further assurance subcutaneous tissue and breast tissue was reapproximated with interrupted 2-0 Vicryl suture. Buried erupted subdermal 3-0 Vicryl sutures were then placed. Epidermis was closed with a running 4-0 Monocryl subcuticular suture. Dressing was applied. She was awakened and brought to recovery in good condition.
== END 2021-03-17 07:28 | disposition home or self-care (01) ==
LOC: SDS 07:27
PROVIDERS: ATTEND Surgery
PROC: 0HBU0ZX Excision of Left Breast, Open Approach, Diagnostic (ICD-10-PCS; principal; 2021-03-17 10:00)
DX: N63.22 Unspecified lump in the left breast, upper inner quadrant (principal); J45.909 Unspecified asthma, uncomplicated; F17.210 Nicotine dependence, cigarettes, uncomplicated; E66.01 Morbid (severe) obesity due to excess calories; Z68.43 Body mass index [BMI] 50.0-59.9, adult
CPT/HCPCS: 19101; 19285; 76098; 77065; A9270; J0131; J2060; J7120

== ENCOUNTER 2021-03-19 11:55 | Emergency (ER) | payer MEDICAID ==
--- OUTSIDE RECORDS SUMMARY | 2021-03-19 11:59 | EXTERNAL MEDICAL SUMMARY RPT | Continuity of Care Document ---
:1970 Demographics Phone Unavailable Preferred Language Samoan Marital Status Unknown Mosque Affiliation Unknown Race Unknown Ethnic Group Unknown Author Organization [place] Address [address] [phone] Phone Care Team Providers Name Role Phone Bruce Levy Unavailable Unavailable Morales Rodriguez Unavailable Unavailable Morales Rodriguez Unavailable Unavailable Allergies Encounters Medications date description facility [id number] Acetaminophen 325 MG Oral Tablet [facility] 70046531 Oxycodone Hydrochloride 5 MG Oral [facility] 08796451 Acetaminophen 325 MG Oral Tablet [facility] 84515542 Oxycodone Hydrochloride 5 MG Oral [facility] 99283185 Metformin hydrochloride 500 MG Oral [facility] 50409529 tiotropium 0.018 MG/ACTUAT Inhalant [facility] 03540186 24 HR Alprazolam 3 MG Extended Release Tablet [facility] 90073381 Lisinopril 10 MG Oral Tablet [facility] 91536554 Furosemide 40 MG Oral Tablet [facility] 81691121 Sertraline 25 MG Oral Tablet [facility] 00085709 Metformin hydrochloride 500 MG Oral Tab [facility] 39798013 tiotropium 0.018 MG/ACTUAT Inhalant [facility] 93366596 24 HR Alprazolam 3 MG Extended Release Tablet [facility] 09820642 Lisinopril 10 MG Oral Tablet [facility] 40838918 Furosemide 40 MG Oral Tablet [facility] 24896648 Sertraline 25 MG Oral Tablet [facility] Problems date description facility [id number] Stiffness of right shoulder, not elsewh [facility] [id number] Encounter for preprocedural laboratory examination [facility] [id number] Contact with and (suspected) exposure t o COVID-[address] [place] [address] Procedures date description facility [id number] [facility] [id number] [facility] [id number] [facility] [id number] [facility] [id number] [facility] Results Vital Signs date measurement value source [id number] weight_standard 309 lb [id number] weight_metric 140.16 kg 82349718 temperature_standard 98.4 F 41406785 temperature_metric 36.89 C 77729726 respiration_rate 16 /min 31472136 height_standard 65 in 20210308 height_metric 165.1 cm 20210308 heart_rate 93 /min 20210308 BP_systolic 148 mm[Hg] 20210308 BP_diastolic 93 mm[Hg] 20210308 BMI 51.4 kg/m2 20210318 weight_standard 145.15 lb 20210318 weight_metric 65.84 kg 20210318 temperature_standard 98.5 F 20210318 temperature_metric 36.94 C 20210318 respiration_rate 16 /min 20210318 height_standard 64 in 20210318 height_metric 162.56 cm 20210318 heart_rate 84 /min 20210318 BP_systolic 128 mm[Hg] 20210318 BP_diastolic 63 mm[Hg] 20210318 BMI 54.9 kg/m2
[2021-03-19 12:13] VITALS: BP 142/79
--- OUTSIDE RECORDS SUMMARY | 2021-03-19 12:23 | EXTERNAL MEDICAL SUMMARY RPT | Continuity of Care Document ---
:1970 Demographics Phone Unavailable Preferred Language Uruguayan Marital Status Unknown Cheondoism Affiliation Unknown Race Unknown Ethnic Group Unknown Author Organization [place] Address [address] [phone] Phone Care Team Providers Name Role Phone Bruce Levy Unavailable Unavailable Morales Rodriguez Unavailable Unavailable Morales Rodriguez Unavailable Unavailable Allergies Encounters Medications date description facility [id number] Acetaminophen 325 MG Oral Tablet [facility] 91332770 Oxycodone Hydrochloride 5 MG Oral [facility] 33672021 Acetaminophen 325 MG Oral Tablet [facility] 67142339 Oxycodone Hydrochloride 5 MG Oral [facility] 62119846 Metformin hydrochloride 500 MG Oral [facility] 93191573 tiotropium 0.018 MG/ACTUAT Inhalant [facility] 31253396 24 HR Alprazolam 3 MG Extended Release Tablet [facility] 34468561 Lisinopril 10 MG Oral Tablet [facility] 67925892 Furosemide 40 MG Oral Tablet [facility] 97255421 Sertraline 25 MG Oral Tablet [facility] 50482786 Metformin hydrochloride 500 MG Oral Tab [facility] 73820235 tiotropium 0.018 MG/ACTUAT Inhalant [facility] 32062446 24 HR Alprazolam 3 MG Extended Release Tablet [facility] 59617860 Lisinopril 10 MG Oral Tablet [facility] 54420340 Furosemide 40 MG Oral Tablet [facility] 48871390 Sertraline 25 MG Oral Tablet [facility] Problems date description facility [id number] Stiffness of right shoulder, not elsewh [facility] [id number] Encounter for preprocedural laboratory examination [facility] [id number] Contact with and (suspected) exposure t o COVID-[address] [place] [address] Procedures date description facility [id number] [facility] [id number] [facility] 75874517 [facility] 90111413 [facility] 20210306 [facility] Results Vital Signs date measurement value source [id number] weight_standard 309 lb 86215612 weight_metric 140.16 kg 16572068 temperature_standard 98.4 F 37981795 temperature_metric 36.89 C 09918148 respiration_rate 16 /min 24574024 height_standard 65 in 20210308 height_metric 165.1 cm [...]
--- NOTE | 2021-03-19 13:51 | ED Physician Documentation ---
History of Present Illness - Stated complaint Stated Complaint: LT BREST SWELLING - Chief complaint Chief Complaint: General - History obtained from History obtained from: Patient - Additonal information Additional information: 51-year-old woman presents, postop day 2 after a left lumpectomy by Dr. Birmingham with left breast swelling, warmth, erythema. She states it started as a small area just inferior medial to the nipple and has spread significantly over the past day. Pain is severe, constant, worse with pressing on it, associated with swelling. 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 Psych: Depression, Anxiety Musculoskeletal: Osteoarthritis, Fibromyalgia Derm: Other - Past Surgical History Past Surgical History: Yes General: Cholecystectomy Ortho: Arthroscopic surgery, Carpal Tunnel surgery HEENT: Rhinoplasty - Present Medications Home Medications: Ambulatory Orders Medication Instructions Recorded Confirmed Albuterol Sulf [Ventolin Hfa 1 - 2 puffs INH Q6H PRN 09/08/18 03/17/21 Inhaler] Alprazolam [Alprazolam Xr] 3 mg PO DAILY 09/08/18 03/17/21 Brexpiprazole [Rexulti] 1 mg PO DAILY 09/08/18 03/17/21 Rabeprazole Sodium [Aciphex] 40 mg ORAL DAILY 09/08/18 03/17/21 Sertraline HCl [Zoloft] 200 mg ORAL DAILY 09/08/18 03/17/21 Oxycodone HCl/Acetaminophen 1 - 2 each PO Q6H PRN #10 tablet 11/22/18 03/17/21 [Percocet 5-325 mg Tablet] Aspirin [Aspirin EC] 81 mg PO DAILY 12/04/20 03/17/21 Furosemide [Lasix] 80 mg PO DAILY 12/04/20 02/10/21 Levothyroxine [Synthroid] 25 mcg PO QDAC 12/04/20 03/17/21 Lisinopril [Zestril] 10 mg PO DAILY 12/04/20 03/16/21 Medroxyprogesterone Acetate 150 mg IM ONCE 12/04/20 03/17/21 [Depo-Provera] Promethazine [Phenergan] 25 mg PO Q6H PRN 12/04/20 03/17/21 metFORMIN [Glucophage] 500 mg PO DAILY 12/04/20 03/16/21 Albuterol Sulf [Ventolin Hfa 1 - 2 puffs INH Q4HR PRN 03/16/21 03/17/21 Inhaler] Alprazolam [Xanax] 1 mg PO TID 03/16/21 03/17/21 Furosemide [Lasix] 120 mg PO DAILY 03/16/21 03/17/21 Tiotropium [place] [Spiriva 1 puffs PO DAILY 03/16/21 03/17/21 Respimat] - Allergies Allergies/Adverse Reactions: Allergies Allergy/AdvReac Type Severity Reaction Status Date / Time Egg Derived Allergy Emesis, Verified 03/19/21 12:14 stomach pain eucalyptus Allergy Anaphylaxis Verified 03/19/21 12:14 naproxen [From Aleve] Allergy Cramps Verified 03/19/21 12:14 Penicillins Allergy Anaphylaxis Verified 03/19/21 12:14 Sulfa (Sulfonamide Allergy Cramps Verified 03/19/21 12:14 Antibiotics) - Social History Does the pt smoke?: Yes Smoking Status: Current every day smoker Does the pt drink ETOH?: No Does the pt have substance abuse?: No - Immunizations Immunizations are current?: Yes - POLST Patient has POLST: No PD ED PE NORMAL - Vitals Vital signs reviewed: Yes - General General: Alert and oriented X 3, No acute distress, Well developed/nourished - HEENT HEENT: Atraumatic, PERRL, EOMI - Neck Neck: Supple, no meningeal sign - Derm Derm: Normal color, Other (discoloration, ecchymosis and irritation to inferolateral quadrant of L breast just inferior to wound site. stitches intact with clean wound.) - Extremities Extremities: No deformity - Neuro Neuro: Alert and oriented X 3 - Psych Psych: Normal mood, Normal affect Results - Vitals Vitals: Vital Signs - 24 hr 03/19/21 12:08 Temperature 36.8 C Heart Rate 91 Respiratory 18 Rate Blood Pressure 142/79 H O2 Saturation 97 Oxygen O2 Source Room air PD MEDICAL DECISION MAKING - ED course ED course: Discussed with Dr. Birmingham who will come evaluate the patient. Dr. Birmingham recommends discharge without antibiotics. No signs of cellulitis. Departure - Departure Disposition: 01 Home, Self Care Clinical Impression: Bruise of breast, Visit for wound check Condition: Good Instructions: ED Wound Care Follow-Up: Jean Paul Birmingham MD [Provider Admit Priv/Credential] - Comments: You were seen in the emergency department for a wound check. Dr. Birmingham evaluated and does not think that the wound is infected. Please return if you experience fevers, have any new or worsening symptoms or other concerns. Follow-up in surgery clinic.
--- NOTE | 2021-03-19 14:15 | PROVIDER PROGRESS NOTE ---
Subjective - Prog Note Date Prog Note Date: 03/19/21 - Subjective Subjective: She had a deep breast biopsy a couple days ago. She has noticed pain and swelling. Objective - Vital Signs/Intake & Output Reviewed Vital Signs: Yes Vital Signs: Vital Signs x48h Temp Pulse Resp BP Pulse Ox 03/19/21 12:08 36.8 C 91 18 142/79 H 97 - Objective General Appearance: positive: No acute distress, Alert Comments/Other: left breast exam dependent ecchymosis. Incision clean dry intact without erythema. No significant hematoma. No infection Assessment/Plan - Problem List (1) Bruise of breast Impression: dependent ecchymosis after deep breast biopsy. no infection. no significant hematoma. she is reassured. ice prn. she has a pain specialist and contract. follow up surgery office next week.
== END 2021-03-19 14:13 | disposition home or self-care (01) ==
LOC: ED 11:55
DX: S20.02XA Contusion of left breast, initial encounter (principal); Y83.8 Other surgical procedures as the cause of abnormal reaction of the patient, or of later complication, without mention of misadventure at the time of the procedure; G89.18 Other acute postprocedural pain; E11.9 Type 2 diabetes mellitus without complications; Z79.84 Long term (current) use of oral hypoglycemic drugs; F17.200 Nicotine dependence, unspecified, uncomplicated
CPT/HCPCS: 99282

== ENCOUNTER 2021-03-22 19:50 | Outpatient (CLI) | payer MEDICAID | END 2021-03-22 19:51 | disposition critical access hospital (66) | LOC: EMS 19:50 | DX: R60.0 Localized edema (principal); R06.00 Dyspnea, unspecified; R11.0 Nausea | CPT/HCPCS: A0425; A0429 ==

== ENCOUNTER 2021-03-22 20:02 | Emergency (ER) | payer MEDICAID ==
--- OUTSIDE RECORDS SUMMARY | 2021-03-22 20:10 | EXTERNAL MEDICAL SUMMARY RPT | Continuity of Care Document ---
:1970 Demographics Phone Unavailable Preferred Language Turkmen Marital Status Unknown Orthodox Affiliation Unknown Race Unknown Ethnic Group Unknown Author Organization [place] Address [address] [phone] Phone Care Team Providers Name Role Phone Rodriguez Unavailable Unavailable Lanker Unavailable Unavailable Rodriguez Unavailable Unavailable Allergies Encounters Medications date description facility [id number] Acetaminophen 325 MG Oral Tablet [facility] 09110787 Oxycodone Hydrochloride 5 MG Oral [facility] 25503970 Acetaminophen 325 MG Oral Tablet [facility] 83844781 Oxycodone Hydrochloride 5 MG Oral [facility] 17753180 Metformin hydrochloride 500 MG Oral Tab [facility] 45409566 tiotropium 0.018 MG/ACTUAT Inhalant [facility] 63214975 24 HR Alprazolam 3 MG Extended Release Tablet [facility] 19334765 Lisinopril 10 MG Oral Tablet [facility] 78012945 Furosemide 40 MG Oral Tablet [facility] 53516393 Sertraline 25 MG Oral Tablet [facility] 38428948 Metformin hydrochloride 500 MG Oral [facility] 20743155 tiotropium 0.018 MG/ACTUAT Inhalant [facility] 46761163 24 HR Alprazolam 3 MG Extended Release Tablet [facility] 45727619 Lisinopril 10 MG Oral Tablet [facility] 41743547 Furosemide 40 MG Oral Tablet [facility] 79039644 Sertraline 25 MG Oral Tablet [facility] Problems date description facility [id number] Stiffness of right shoulder, not elsewh [facility] 13815716 Encounter for preprocedural laboratory examination [facility] 01377501 Contact with and (suspected) exposure t o COVID[address] Procedures date description facility [id number] [facility] 20726912 [facility] 92269616 [facility] 24457397 [facility] 20210306 [facility] Results Vital Signs date measurement value source [id number] weight_standard 309 lb 76945429 weight_metric 140.16 kg 64384541 temperature_standard 98.4 F 39689905 temperature_metric 36.89 C 04799293 respiration_rate 16 /min 81909387 height_standard 65 in 13091184 height_metric 165.1 cm 20210308 heart_rate 93 /min [...]
--- NOTE | 2021-03-22 21:31 | ED Physician Documentation ---
History of Present Illness - Stated complaint Stated Complaint: Swelling in feet s/p lump removal - Chief complaint Chief Complaint: General - History obtained from History obtained from: Patient - Additonal information Additional information: 51-year-old woman with history of left breast lump status post lumpectomy by Dr. Birmingham a few days ago with postoperative complication of pain and ecchymosis to the wound site presents with persistent pain and swelling today. Patient also noted new swelling that she believes came on suddenly today. Also with bilateral lower extremity swelling, worse on the left versus the right. Patient states she has had issues with this in the past and takes Lasix for it but that is worse today. does endorse mild soa. denies cough or hemoptysis, history of clots. She is on injected hormone therapy. denies fevers. Pain is well controlled at present. Review of Systems Ten Systems: 10 systems reviewed and negative Constitutional: denies: Fever, Chills Cardiac: denies: Calf pain Respiratory: reports: Dyspnea. 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 Psych: Depression, Anxiety Musculoskeletal: Osteoarthritis, Fibromyalgia Derm: Other Other Past Medical History: lupus sle - Past Surgical History Past Surgical History: Yes General: Cholecystectomy Ortho: Arthroscopic surgery, Carpal Tunnel surgery HEENT: Rhinoplasty - Present Medications Home Medications: Ambulatory Orders Medication Instructions Recorded Confirmed Brexpiprazole [Rexulti] 1 mg PO DAILY 09/08/18 03/17/21 Rabeprazole Sodium [Aciphex] 40 mg ORAL DAILY 09/08/18 03/17/21 Sertraline HCl [Zoloft] 100 mg ORAL BID 09/08/18 03/17/21 Aspirin [Aspirin EC] 81 mg PO DAILY 12/04/20 03/17/21 Levothyroxine [Synthroid] 25 mcg PO QDAC 12/04/20 03/17/21 Lisinopril [Zestril] 10 mg PO DAILY 12/04/20 03/16/21 Medroxyprogesterone Acetate 150 mg IM ONCE 12/04/20 03/17/21 [Depo-Provera] Promethazine [Phenergan] 25 mg PO Q6H PRN 12/04/20 03/17/21 metFORMIN [Glucophage] 500 mg PO DAILY 12/04/20 03/16/21 Albuterol Sulf [Ventolin Hfa 1 - 2 puffs INH Q4HR PRN 03/16/21 03/17/21 Inhaler] Alprazolam [Xanax] 1 mg PO TID 03/16/21 03/17/21 Furosemide [Lasix] 120 mg PO DAILY 03/16/21 03/17/21 Tiotropium [place] [Spiriva 1 puffs PO DAILY 03/16/21 03/17/21 Respimat] Oxycodone HCl/Acetaminophen 1 each PO Q6HR PRN 03/22/21 03/22/21 [Percocet 10-325 mg Tablet] - Allergies Allergies/Adverse Reactions: Allergies Allergy/AdvReac Type Severity Reaction Status Date / Time Egg Derived Allergy Emesis, Verified 03/19/21 12:14 stomach pain eucalyptus Allergy Anaphylaxis Verified 03/19/21 12:14 naproxen [From Aleve] Allergy Cramps Verified 03/19/21 12:14 Penicillins Allergy Anaphylaxis Verified 03/19/21 12:14 Sulfa (Sulfonamide Allergy Cramps Verified 03/19/21 12:14 Antibiotics) - Social History Does the pt smoke?: Yes Smoking Status: Current every day smoker Does the pt drink ETOH?: No Does the pt have substance abuse?: No - Immunizations Immunizations are current?: Yes - POLST Patient has POLST: No PD ED PE NORMAL - Vitals Vital signs reviewed: Yes - General General: Alert and oriented X 3, No acute distress, Well developed/nourished - HEENT HEENT: Atraumatic, PERRL, EOMI - Neck Neck: Supple, no meningeal sign - Cardiac Cardiac: RRR - Respiratory Respiratory: No respiratory distress, Clear bilaterally - Derm Derm: Normal color, Warm and dry, Other (incisional site clean without purulent drainage. ecchymosis again noted to LLQ of breast with discoloration around wound site and palpable hardening. no distinct fluctuance. no cellulitis) - Extremities Extremities: Other (1+ BL LE edema) - Neuro Neuro: Alert and oriented X 3 - Psych Psych: Normal mood, Normal affect Results - Vitals Vitals: Vital Signs - 24 hr 03/22/21 03/22/21 03/23/21 20:07 22:10 00:05 Temperature 36.8 C 36.5 C Heart Rate 80 73 82 Respiratory 20 18 18 Rate Blood Pressure 131/82 H 135/81 H 138/80 H O2 Saturation 96 98 99 Oxygen O2 Source Room air - Labs Labs: Laboratory Tests 03/22/21 03/22/21 03/22/21 21:34 21:34 21:34 WBC 10.8 RBC 3.89 L Hgb 13.0 Hct 38.3 MCV 98.5 MCH 33.4 H MCHC 33.9 RDW 14.7 Plt Count 265 MPV 9.6 Neut # (Auto) 6.9 H Lymph # (Auto) 2.7 [place] # (Auto) 0.7 Eos # (Auto) 0.5 Baso # (Auto) 0.1 Absolute Nucleated RBC 0.00 Nucleated RBC % 0.0 D-Dimer Sodium 133 L Potassium 3.8 Chloride 96 L Carbon Dioxide 29 Anion Gap 8.0 BUN 10 Creatinine 0.8 Estimated GFR (MDRD) 76 L Glucose 134 H Lactic Acid 1.2 Calcium 9.0 Total Bilirubin 0.5 AST 15 ALT 18 Alkaline Phosphatase 109 Total Protein 7.0 Albumin 3.6 Globulin 3.4 Albumin/Globulin Ratio 1.1 03/22/21 21:34 WBC RBC Hgb Hct MCV MCH MCHC RDW Plt Count MPV Neut # (Auto) Lymph # (Auto) [place] # (Auto) Eos # (Auto) Baso # (Auto) Absolute Nucleated RBC Nucleated RBC % D-Dimer 227.4 Sodium Potassium Chloride Carbon Dioxide Anion Gap BUN Creatinine Estimated GFR (MDRD) Glucose Lactic Acid Calcium Total Bilirubin AST ALT Alkaline Phosphatase Total Protein Albumin Globulin Albumin/Globulin Ratio PD MEDICAL DECISION MAKING - ED course ED course: discussed on the phone with Dr. Birmingham in regards to patient concern about "something wrong with my breast". He states she can follow up in the office tomorrow morning. Recommends against antibiotics since she had no evidence of wound site infection on his recent evaluation. Our director international KK alerted me that the patient has a 10mL fluid collection. On remeasurement it may be as big as 18mL. I discussed this again over the phone with Dr. Birmingham who still recommends the patient follow up in clinic tomorrow morning and plans to observe for resorption rather than repeat incision to evacuate the fluid. I discussed with the patient and she will plan to continue h er doxycycline and f/u with Dr. Birmingham tomorrow. 1am - radiologist report states seroma vs. abscess. I called again to d/w Dr. Birmingham who will see patient in clinic tomorrow. Departure - Departure Disposition: 01 Home, Self Care Clinical Impression: Seroma after procedure Condition: Good Instructions: ED Seroma Post Op Follow-Up: Jean Paul Birmingham MD [Provider Admit Priv/Credential] - Comments: You were seen in the emergency department for evaluation of your breast swelling as well as for bilateral leg swelling. Your ultrasound of your veins in your legs was normal, but you need to have a follow-up ultrasound in 1 week. Your ultrasound of your breast showed some fluid collection that is consistent with postoperative seroma. I am enclosing information about seroma. You should follow-up with Dr. Birmingham tomorrow. Return to the emergency department if you have any new or worsening symptoms or other concerns Discharge Date/Time: 03/23/21 00:05
[2021-03-22 21:39] LABS: BASOPHILS # (AUTO) 0.1 10^3/uL (0.0-0.1); BASOPHILS % (AUTO) 0.6 %; EOSINOPHILS # (AUTO) 0.5 10^3/uL (0.0-0.7); EOSINOPHILS % (AUTO) 4.2 %; HCT - HEMATOCRIT 38.3 % (37.0-47.0); LYMPHOCYTES # (AUTO) 2.7 10^3/uL (1.5-3.5); LYMPHOCYTES % (AUTO) 25.1 %; MEAN CORPUSCULAR HEMOGLOBIN 33.4 pg (27.0-31.0); MEAN CORPUSCULAR HGB CONC 33.9 g/dL (32.0-36.0); MEAN CORPUSCULAR VOLUME 98.5 fL (81.0-99.0); MEAN PLATELET VOLUME 9.6 fL (7.9-10.8); MONOCYTES # (AUTO) 0.7 10^3/uL (0.0-1.0); NEUTROPHILS # (AUTO) 6.9 10^3/uL (1.5-6.6); NEUTROPHILS % (AUTO) 63.8 %; PLT - PLATELET COUNT 265 10^3/uL (130-450); RED BLOOD COUNT 3.89 10^6/uL (4.20-5.40); RED CELL DISTRIBUTION WIDTH 14.7 % (12.0-15.0); WHITE BLOOD COUNT 10.8 x10^3/uL (4.8-10.8)
[2021-03-22] MEDS ORDERED: KETOROLAC 30 MG/ML VIAL IM STA (21:48)
[2021-03-22 21:53] LABS: ALBUMIN 3.6 g/dL (3.2-5.5); ALBUMIN/GLOBULIN RATIO 1.1 (1.0-2.2); BILIRUBIN,TOTAL 0.5 mg/dL (0.2-1.0); CREATININE 0.8 mg/dL (0.4-1.0); POTASSIUM 3.8 mmol/L (3.5-5.0)
[2021-03-23 00:46] VITALS: BP 138/80
--- NOTE | 2021-03-23 07:24 | Ultrasound Report ---
PROCEDURE: Duplex Ext Veins Bilateral INDICATIONS: KADI D HOLLAND TECHNIQUE: Real-time imaging, as well as color and pulse Doppler interrogation, were performed of the deep veins of both legs from the inguinal ligament to the popliteal fossa. COMPARISON: None FINDINGS: The deep veins are normally compressible, and free of intraluminal thrombus. Color and pu lse Doppler demonstrate normal phasic intravascular flow. There is normal augmentation response to d istal compression maneuver. IMPRESSION: No sonographic evidence of deep venous thrombosis in the thigh. Below level of the knees, the veins a re only partially visualized due to edema within the soft tissues. The visualized segments of the and infrapopliteal veins are patent. Reviewed by: Sergio Kumar MD on 03/23/2021 7:23 AM PDT Approved by: Sergio Kumar MD on 03/23/2021 7:23 AM PDT Station ID: [id number]
--- NOTE | 2021-03-23 16:32 | Ultrasound Report ---
PROCEDURE: Breast Unilateral Limited INDICATIONS: left breast incisional pain and swelling TECHNIQUE: Targeted ultrasound of the left breast lumpectomy site. COMPARISON: Breast specimen 03/17/2021, diagnostic mammogram 03/17/2021, wire localization 03/17/2021, [facility] ultrasound 02/17/2021. FINDINGS: Targeted ultrasound was performed of the left breast upper outer quadrant at the site of surgical inc ision. At 10:00 9 cm from the nipple there is a irregular fluid collection measuring 8 x 2.1 x 2 cm, estimated volume of 18 cc. There is heterogeneous material layering in the collection. No surrounding hyperemia is demonstrated. IMPRESSION: Left breast lumpectomy 10:00 9 cm from the nipple irregular fluid collection measuring 8 cm and appro ximately 18 cc. This is most compatible with hematoma, abscess, and/or seroma Recommend continued clinical surveillance. If the abnormality worsens or increases in size recommend repeat ultrasound. Recommend pathologic correlation with the lumpectomy specimen. This report is concordant with the overnight preliminary interpretation. Reviewed by: Jovanny Hannah MD on 03/23/2021 4:31 PM PDT Approved by: Jovanny Hannah MD on 03/23/2021 4:31 PM PDT Station ID: [id number]
== END 2021-03-23 00:05 | disposition home or self-care (01) ==
LOC: EDUNIT# → ED 20:02
DX: L76.34 Postprocedural seroma of skin and subcutaneous tissue following other procedure (principal); Y83.8 Other surgical procedures as the cause of abnormal reaction of the patient, or of later complication, without mention of misadventure at the time of the procedure; E11.9 Type 2 diabetes mellitus without complications; Z79.84 Long term (current) use of oral hypoglycemic drugs; F17.200 Nicotine dependence, unspecified, uncomplicated
CPT/HCPCS: 36415; 80053; 83605; 85025; 85379; 93970; 96372; 99284; 99285

== ENCOUNTER 2021-04-25 09:42 | Emergency (ER) | payer MEDICAID ==
[2021-04-25] MEDS ORDERED: HYDROmorphone 2 MG TABLET PO STA (10:26)
--- NOTE | 2021-04-25 10:41 | ED Physician Documentation ---
History of Present Illness - Stated complaint Stated Complaint: LT KNEE INJ - Chief complaint Chief Complaint: Ext Problem - History obtained from History obtained from: Patient - History of Present Illness Timing: Chronic Pain level max: 10 Pain level now: 10 - Additonal information Additional information: Patient is a 51-year-old female who presents to the emergency department with chronic left knee pain. Worsening over the past several weeks. She states she uses a walker at home. She states she has "[id number]" arthritis in her knees. She is on oxycodone 07/18/2025 3 times daily at home. This is for chronic pain. She states this is not helping either. Does not recall any recent injuries. No fevers. No chills. No redness. No swelling. 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 Psych: Depression, Anxiety Musculoskeletal: Osteoarthritis, Fibromyalgia Derm: Other - Past Surgical History Past Surgical History: Yes General: Cholecystectomy Ortho: Arthroscopic surgery, Carpal Tunnel surgery HEENT: Rhinoplasty - Present Medications Home Medications: Ambulatory Orders Medication Instructions Recorded Confirmed Brexpiprazole [Rexulti] 1 mg PO DAILY 09/08/18 03/17/21 Rabeprazole Sodium [Aciphex] 40 mg ORAL DAILY 09/08/18 03/17/21 Sertraline HCl [Zoloft] 100 mg ORAL BID 09/08/18 03/17/21 Aspirin [Aspirin EC] 81 mg PO DAILY 12/04/20 03/17/21 Levothyroxine [Synthroid] 25 mcg PO QDAC 12/04/20 03/17/21 Lisinopril [Zestril] 10 mg PO DAILY 12/04/20 03/16/21 Medroxyprogesterone Acetate 150 mg IM ONCE 12/04/20 03/17/21 [Depo-Provera] Promethazine [Phenergan] 25 mg PO Q6H PRN 12/04/20 03/17/21 metFORMIN [Glucophage] 500 mg PO DAILY 12/04/20 03/16/21 Albuterol Sulf [Ventolin Hfa 1 - 2 puffs INH Q4HR PRN 03/16/21 03/17/21 Inhaler] Alprazolam [Xanax] 1 mg PO TID 03/16/21 03/17/21 Furosemide [Lasix] 120 mg PO DAILY 03/16/21 03/17/21 Tiotropium [place] [Spiriva 1 puffs PO DAILY 03/16/21 03/17/21 Respimat] Oxycodone HCl/Acetaminophen 1 each PO Q6HR PRN 03/22/21 03/22/21 [Percocet 10-325 mg Tablet] - Allergies Allergies/Adverse Reactions: Allergies Allergy/AdvReac Type Severity Reaction Status Date / Time Egg Derived Allergy Emesis, Verified 04/25/21 09:52 stomach pain eucalyptus Allergy Anaphylaxis Verified 04/25/21 09:52 naproxen [From Aleve] Allergy Cramps Verified 04/25/21 09:52 Penicillins Allergy Anaphylaxis Verified 04/25/21 09:52 Sulfa (Sulfonamide Allergy Cramps Verified 04/25/21 09:52 Antibiotics) - Social History Does the pt smoke?: Yes Smoking Status: Current every day smoker Does the pt drink ETOH?: No Does the pt have substance abuse?: No - Immunizations Immunizations are current?: Yes - POLST Patient has POLST: No PD ED PE NORMAL - Vitals Vital signs reviewed: Yes - General General: Alert and oriented X 3, No acute distress - HEENT HEENT: Moist mucous membranes - Neck Neck: Supple, no meningeal sign - Derm Derm: Warm and dry - Extremities Extremities: Other (L knee - Mild tenderness along the left lateral tibial plateau. No swelling. No ecchymosis. Limited range of motion secondary to pain. ACL, PCL, MCL and LCL appear intact. Unable to tolerate meniscus testing. Neurovascularly intact) - Neuro Neuro: Alert and oriented X 3 - Psych Psych: Normal mood, Normal affect Results - Vitals Vitals: Vital Signs - 24 hr 04/25/21 04/25/21 09:48 11:41 Temperature 36.5 C 36.2 C L Heart Rate 98 81 Respiratory 15 18 Rate Blood Pressure 115/67 126/71 O2 Saturation 98 99 Oxygen O2 Source Room air - Rads (name of study) L knee xray Radiology: Prelim report reviewed, EMP read contemporaneously, See rad report (1. Moderate tricompartment degenerative joint disease. 2. Possible intra- articular bodies. ) PD MEDICAL DECISION MAKING - ED course Complexity details: reviewed results, re-evaluated patient, considered differential, d/w patient ED course: 51-year-old female with left knee pain. Unclear etiology. Possible intra- articular loose bodies. Possible meniscus injury. We do not have any braces in the emergency department that we will fit the patient. Therefore an Thierno bandage was applied. She has Percocet 10/325 at home. She has a walker at home as well. We will have her follow-up with her doctor for further care. Patient counseled regarding signs and symptoms for which I believe and urgent re- evaluation would be necessary. Patient with good understanding of and agreement to plan and is comfortable going home at this time This document was made in part using voice recognition software. While efforts are made to proofread this document, sound alike and grammatical errors may occur. Departure - Departure Disposition: 01 Home, Self Care Clinical Impression: Knee pain, left Qualifiers: Chronicity: acute Qualified Code(s): M25.562 - Pain in left knee Condition: Good Instructions: ED Knee Pain [facility] Follow-Up: Alverto Morocho DO [Primary Care Provider] - [facility] [Provider Group] - Within 1 week Comments: The cause of your symptoms is unclear. There may be loose intra-articular bodies on your x-ray. Orthopedics may be able to help with your symptoms. I would recommend close follow-up with them. You can continue your oxycodone at home. Return if you worsen. Discharge Date/Time: 04/25/21 11:57
--- NOTE | 2021-04-25 11:16 | XRAY Report ---
PROCEDURE: Knee 4 View LT INDICATIONS: L knee pain, no known injury TECHNIQUE: 4 views of the left knee(s) were acquired. COMPARISON: None. FINDINGS: Bones: No fractures or dislocations. No suspicious bony lesions. Moderate tricompartmental knee horace int degeneration. There is a large osteophyte in the anterior aspect of the distal femoral condyle ab ove the patella. Small interarticular bodies may be present within the intercondylar notch. Soft tissues: No joint effusion. No suspicious soft tissue calcifications. IMPRESSION: 1. Moderate tricompartment degenerative joint disease. 2. Possible intra-articular bodies. Reviewed by: Nazanin Malone MD on 04/25/2021 11:14 AM PDT Approved by: Nazanin Malone MD on 04/25/2021 11:14 AM PDT Station ID: [id number]
[2021-04-25] MEDS ORDERED: ACETAMINOPHEN 325 MG TABLET PO STA (11:37)
[2021-04-25] MEDS ORDERED: oxyCODONE 5 MG TABLET PO STA (11:37)
[2021-04-25 11:41] VITALS: BP 126/71
== END 2021-04-25 11:57 | disposition home or self-care (01) ==
LOC: ED 09:42
DX: M25.562 Pain in left knee (principal); F17.200 Nicotine dependence, unspecified, uncomplicated
CPT/HCPCS: 73564; 99282; 99283; A9270

== ENCOUNTER 2021-05-10 10:08 | Outpatient (CLI) | payer MEDICAID | END 2021-05-10 23:59 | disposition home or self-care (01) | LOC: LAB.N 10:08 | PROVIDERS: ATTEND Family Medicine | DX: Z20.822 Contact with and (suspected) exposure to COVID-19 (principal) ==

== ENCOUNTER 2021-05-19 15:35 | Outpatient (CLI) | payer MEDICAID ==
[2021-05-19 18:06] LABS: ALBUMIN 3.7 g/dL (3.2-5.5); ALKALINE PHOSPHATASE 103 IU/L (42-121); ALT ALANINE AMINOTRANSFERASE 20 IU/L (10-60); AST ASPARTATE AMINOTRANSFERASE 18 IU/L (10-42); BILIRUBIN,TOTAL 0.6 mg/dL (0.2-1.0); TOTAL PROTEIN 7.3 g/dL (6.7-8.2)
[2021-05-19 18:23] LABS: BILIRUBIN,DIRECT < 0.1 mg/dL (0.1-0.5)
== END 2021-05-19 23:59 | disposition home or self-care (01) ==
LOC: LAB.N 15:35
PROVIDERS: ATTEND Family Medicine
DX: K74.60 Unspecified cirrhosis of liver (principal)
CPT/HCPCS: 36415; 80076

== ENCOUNTER 2021-05-25 18:13 | Outpatient (CLI) | payer MEDICAID | END 2021-05-25 18:14 | disposition critical access hospital (66) | LOC: EMS 18:13 | DX: M54.5 Low back pain (principal); G89.29 Other chronic pain | CPT/HCPCS: A0425; A0429; A0999 ==

== ENCOUNTER 2021-05-25 18:27 | Emergency (ER) | payer MEDICAID ==
--- NOTE | 2021-05-25 20:17 | ED Physician Documentation ---
History of Present Illness - Stated complaint Stated Complaint: LOW BACK PX - Chief complaint Chief Complaint: Back Pain - History obtained from History obtained from: Patient - Additonal information Additional information: Patient comes emergency department chief complaint of low back pain. The patient states that she was not really doing anything in particular to set off the back pain. She states that she has 2 bad shoulders and 2 bad knees, so she does not do a whole lot of physical activity. She states that she just seemed to develop the pain in her lumbar area over the course of the day and that after sleeping last night it seemed even worse this morning. Patient states that she has a history of degenerative disc disease. Patient denies any loss of bowel or bladder control. No abdominal pain. No dysuria or hematuria. She states she has an electrical sensation going down both legs. No other complaints at this time. Review of Systems Ten Systems: 10 systems reviewed and negative Constitutional: reports: Reviewed and negative Eyes: reports: Reviewed and negative Ears: reports: Reviewed and negative Nose: reports: Reviewed and negative Throat: reports: Reviewed and negative Cardiac: reports: Reviewed and negative Respiratory: reports: Reviewed and negative GI: reports: Reviewed and negative : reports: Reviewed and negative Skin: reports: Reviewed and negative Musculoskeletal: reports: Back pain Neurologic: reports: Reviewed and negative Psychiatric: reports: Reviewed and negative Endocrine: reports: Reviewed and negative Immunocompromised: reports: Reviewed and negative PD PAST MEDICAL HISTORY - Past Medical History Past Medical History: Yes Cardiovascular: None Respiratory: Asthma Neuro: Migraines Endocrine/Autoimmune: Type 2 diabetes, HyPOthyroidism GI: GERD, Cirrhosis 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 Psych: Depression, Anxiety Musculoskeletal: Osteoarthritis, Fibromyalgia, Chronic back pain Derm: Other - Past Surgical History Past Surgical History: Yes General: Cholecystectomy Ortho: Arthroscopic surgery, Carpal Tunnel surgery HEENT: Rhinoplasty - Present Medications Home Medications: Ambulatory Orders Medication Instructions Recorded Confirmed Brexpiprazole [Rexulti] 1 mg PO DAILY 09/08/18 03/17/21 Rabeprazole Sodium [Aciphex] 40 mg ORAL DAILY 09/08/18 03/17/21 Sertraline HCl [Zoloft] 100 mg ORAL BID 09/08/18 03/17/21 Aspirin [Aspirin EC] 81 mg PO DAILY 12/04/20 03/17/21 Levothyroxine [Synthroid] 25 mcg PO QDAC 12/04/20 03/17/21 Lisinopril [Zestril] 10 mg PO DAILY 12/04/20 03/16/21 Medroxyprogesterone Acetate 150 mg IM ONCE 12/04/20 03/17/21 [Depo-Provera] Promethazine [Phenergan] 25 mg PO Q6H PRN 12/04/20 03/17/21 metFORMIN [Glucophage] 500 mg PO DAILY 12/04/20 03/16/21 Albuterol Sulf [Ventolin Hfa 1 - 2 puffs INH Q4HR PRN 03/16/21 03/17/21 Inhaler] Alprazolam [Xanax] 1 mg PO TID 03/16/21 03/17/21 Furosemide [Lasix] 120 mg PO DAILY 03/16/21 03/17/21 Tiotropium [place] [Spiriva 1 puffs PO DAILY 03/16/21 03/17/21 Respimat] Oxycodone HCl/Acetaminophen 1 each PO Q6HR PRN 03/22/21 03/22/21 [Percocet 10-325 mg Tablet] Buspirone HCl 10 mg PO BID 05/25/21 05/25/21 Cyclobenzaprine [Flexeril] 10 mg PO TID PRN #20 tablet 05/25/21 HYDROcod/ACETAM 5/325 [[place] 5/325] 1 - 2 tablet PO Q6H PRN #14 tablet 05/25/21 Valacyclovir HCl [Valtrex] 1,000 mg PO DAILY 05/25/21 05/25/21 - Allergies Allergies/Adverse Reactions: Allergies Allergy/AdvReac Type Severity Reaction Status Date / Time Egg Derived Allergy Emesis, Verified 04/25/21 09:52 stomach pain eucalyptus Allergy Anaphylaxis Verified 04/25/21 09:52 naproxen [From Aleve] Allergy Cramps Verified 04/25/21 09:52 Penicillins Allergy Anaphylaxis Verified 04/25/21 09:52 Sulfa (Sulfonamide Allergy Cramps Verified 04/25/21 09:52 Antibiotics) - Social History Does the pt smoke?: Yes Smoking Status: Current every day smoker Does the pt drink ETOH?: No Does the pt have substance abuse?: No - Immunizations Immunizations are current?: Yes - POLST Patient has POLST: No PD ED PE NORMAL - Vitals Vital signs reviewed: Yes - General General: Alert and oriented X 3, No acute distress, Well developed/nourished, Other (Morbidly obese) - HEENT HEENT: Atraumatic, PERRL, EOMI, Moist mucous membranes - Neck Neck: Supple, no meningeal sign, No bony TTP - Cardiac Cardiac: RRR, No murmur, Strong equal pulses - Respiratory Respiratory: No respiratory distress, Clear bilaterally - Abdomen Abdomen: Soft, Non tender, Non distended - Back Back: No CVA TTP, No spinal TTP, Other (Tender just to the right of L3-5 area. No sciatic tenderness on either side. No bony tenderness or step-off.) - Derm Derm: Normal color, Warm and dry, No rash - Extremities Extremities: No deformity, No edema, No calf tenderness / cord - Neuro Neuro: Alert and oriented X 3 - Psych Psych: Normal mood, Normal affect Results - Vitals Vitals: Vital Signs - 24 hr 05/25/21 05/25/21 05/25/21 18:33 21:02 21:40 Temperature 36.8 C 36.3 C L Heart Rate 93 93 90 Respiratory 18 16 18 Rate Blood Pressure 135/74 H 135/87 H 145/94 H O2 Saturation 99 99 96 Oxygen O2 Source Room air - Rads (name of study) lumbar spine XR Radiology: Final report received, EMP read indepedently, See rad report (Spondylosis otherwise negative) PD MEDICAL DECISION MAKING - ED course Complexity details: reviewed results, re-evaluated patient, considered differential, d/w patient ED course: Patient was treated symptomatically with Toradol and Dilaudid and Flexeril. She is sent for x-ray of her lumbar spine, which showed chronic changes but no acute findings. We have discussed symptomatic management at home. The patient was found to be on a pain contract, so could not have any narcotics at home. She was given a prescription for Flexeril. We have discussed the usual indications for return. Departure - Departure Disposition: Home, Self Care Clinical Impression: Back pain Qualifiers: Back pain location: low back pain Chronicity: acute Back pain laterality: midline Sciatica presence: without sciatica Qualified Code(s): M54.5 - Low back pain Radiculopathy Qualifiers: Spinal region: lumbar Qualified Code(s): M54.16 - Radiculopathy, lumbar region Condition: Stable Instructions: ED Neck Back Pain General Prescriptions: Cyclobenzaprine [Flexeril] 10 mg PO TID PRN #20 tablet PRN Reason: Spasms HYDROcod/ACETAM 5/325 [[place] 5/325] 1 - 2 tablet PO Q6H PRN #14 tablet PRN Reason: Pain Comments: Your x-ray shows arthritis, but no bone spurs, either attached or detached. Please take the meds as needed and follow-up with your doctor as needed. Discharge Date/Time: 05/25/21 21:54
[2021-05-25] MEDS: CYCLOBENZAPRINE 10 MG TABLET PO STA (20:21)
[2021-05-25] MEDS: HYDROmorphone 1 MG/ML CARPUJECT IM STA ×2 (20:22→21:20)
[2021-05-25] MEDS: KETOROLAC 60 MG/2 ML VIAL IM STA (20:22)
--- NOTE | 2021-05-25 21:00 | XRAY Report ---
PROCEDURE: Lumbar Spine 2 View INDICATIONS: pain TECHNIQUE: 3 views of the lumbar spine were acquired. COMPARISON: Lumbar spine radiographs 10/06/2020. FINDINGS: Bones: 5 [id number] vertebrae are present. There is normal bony alignment. No vertebral body compression fractures. No suspicious bony lesions. Mild degenerative endplate changes and facet hype rtrophy are seen. Soft tissues: Overlying bowel gas pattern is normal. No suspicious soft tissue calcifications. Pro bable cholecystectomy clips in the right upper quadrant. IMPRESSION: No acute osseous abnormality. Mild multilevel spondylosis. Reviewed by: Dandy Lr MD on 05/25/2021 8:58 PM PDT Approved by: Dandy Lr MD on 05/25/2021 8:58 PM PDT Station ID: [id number]
[2021-05-25 21:41] VITALS: BP 145/94
== END 2021-05-25 21:54 | disposition home or self-care (01) ==
LOC: EDUNIT# → ED 18:27
DX: M47.26 Other spondylosis with radiculopathy, lumbar region (principal); E11.9 Type 2 diabetes mellitus without complications; Z79.84 Long term (current) use of oral hypoglycemic drugs; Z79.82 Long term (current) use of aspirin; F17.200 Nicotine dependence, unspecified, uncomplicated
CPT/HCPCS: 72100; 96372; 99283; 99284; A9270; J1170

== ENCOUNTER 2021-07-19 08:00 | Outpatient (CLI) | payer MEDICAID | END 2021-07-19 23:59 | disposition home or self-care (01) | LOC: LAB.N 08:00 | PROVIDERS: ATTEND Family Medicine | DX: Z20.822 Contact with and (suspected) exposure to COVID-19 (principal) ==

== ENCOUNTER 2021-09-18 10:43 | Outpatient (CLI) | payer MEDICAID ==
[2021-09-18 13:58] LABS: ESTIMATED AVERAGE GLUCOSE 137 mg/dL (70-100); HEMOGLOBIN A1c% 6.4 % (4.27-6.07)
== END 2021-09-18 10:44 | disposition home or self-care (01) ==
LOC: LAB.N 10:43
PROVIDERS: ATTEND Nurse Practitioner
DX: E11.9 Type 2 diabetes mellitus without complications (principal)
CPT/HCPCS: 36415; 83036

== ENCOUNTER 2021-12-02 16:03 | Emergency (ER) | payer MEDICAID ==
[2021-12-02 16:09] VITALS: BP 140/72
--- NOTE | 2021-12-02 17:08 | ED Physician Documentation ---
PD HPI SKIN - Stated complaint Stated Complaint: LT THIGH WOUND - Chief complaint Chief Complaint: Wound - History obtained from History obtained from: Patient - History of Present Illness Timing - onset: How many weeks ago (1) Timing - duration: Weeks (1) Timing - details: Gradual onset, Still present Location: LLE (medial upper inner thigh.) Quality / character: Painful, Discolored (red), Swelling, Draining (had pain and swelling increase the past week, and then the area had a small hole open today and drain blood and purulence. Still hurting.) Associated symptoms: No: Fever, Myalgias, N/V/D Contributing factors: Recent illness (had COVID several weeks ago but recovered without problems.), Unknown (she had lost a lot of weight in the past and has folds of skin, in particular the area of the current skin infection.). 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 Psych: Depression, Anxiety Musculoskeletal: Osteoarthritis, Fibromyalgia, Chronic back pain Derm: Other - Past Surgical History Past Surgical History: Yes General: Cholecystectomy Ortho: Arthroscopic surgery, Carpal Tunnel surgery HEENT: Rhinoplasty - Present Medications Home Medications: Ambulatory Orders Medication Instructions Recorded Confirmed Brexpiprazole [Rexulti] 1 mg PO DAILY 09/08/18 03/17/21 Rabeprazole Sodium [Aciphex] 40 mg ORAL DAILY 09/08/18 03/17/21 Sertraline HCl [Zoloft] 100 mg ORAL BID 09/08/18 03/17/21 Aspirin [Aspirin EC] 81 mg PO DAILY 12/04/20 03/17/21 Levothyroxine [Synthroid] 25 mcg PO QDAC 12/04/20 03/17/21 Lisinopril [Zestril] 10 mg PO DAILY 12/04/20 03/16/21 Medroxyprogesterone Acetate 150 mg IM ONCE 12/04/20 03/17/21 [Depo-Provera] Promethazine [Phenergan] 25 mg PO Q6H PRN 12/04/20 03/17/21 metFORMIN [Glucophage] 500 mg PO DAILY 12/04/20 03/16/21 Albuterol Sulf [Ventolin Hfa 1 - 2 puffs INH Q4HR PRN 03/16/21 03/17/21 Inhaler] Alprazolam [Xanax] 1 mg PO TID 03/16/21 03/17/21 Furosemide [Lasix] 120 mg PO DAILY 03/16/21 03/17/21 Tiotropium [place] [Spiriva 1 puffs PO DAILY 03/16/21 03/17/21 Respimat] Oxycodone HCl/Acetaminophen 1 each PO Q6HR PRN 03/22/21 03/22/21 [Percocet 10-325 mg Tablet] Buspirone HCl 10 mg PO BID 05/25/21 05/25/21 Cyclobenzaprine [Flexeril] 10 mg PO TID PRN #20 tablet 05/25/21 HYDROcod/ACETAM 5/325 [[place] 5/325] 1 - 2 tablet PO Q6H PRN #14 tablet 05/25/21 Valacyclovir HCl [Valtrex] 1,000 mg PO DAILY 05/25/21 05/25/21 Doxycycline Hyclate 100 mg PO BID 7 Days #14 cap 12/02/21 Ibuprofen [Motrin] 600 mg PO TID PRN #25 tab 12/02/21 - Allergies Allergies/Adverse Reactions: Allergies Allergy/AdvReac Type Severity Reaction Status Date / Time Egg Derived Allergy Emesis, Verified 12/02/21 16:06 stomach pain eucalyptus Allergy Anaphylaxis Verified 12/02/21 16:06 naproxen [From Aleve] Allergy Cramps Verified 12/02/21 16:06 Penicillins Allergy Anaphylaxis Verified 12/02/21 16:06 Sulfa (Sulfonamide Allergy Cramps Verified 12/02/21 16:06 Antibiotics) ketorolac [From Toradol] AdvReac Headache Verified 12/02/21 17:41 - Social History Does the pt smoke?: Yes Smoking Status: Current every day smoker Does the pt drink ETOH?: No Does the pt have substance abuse?: No - Immunizations Immunizations are current?: Yes - POLST Patient has POLST: No PD ED PE NORMAL - Vitals Vital signs reviewed: Yes - General General: Alert and oriented X 3, No acute distress, Well developed/nourished - Cardiac Cardiac: RRR, No murmur - Respiratory Respiratory: Clear bilaterally - Abdomen Abdomen: Soft, Non tender - Derm Derm: Normal color, Warm and dry - Extremities Extremities: Other (left medial upper thigh with area of outward pouching skin that is red/swollen, with small hole in center. No current drainage. bedside U/S without any notable fluid, but there is underlying tissue edema. Area is tender. ) - Neuro Neuro: No motor deficit, No sensory deficit Results - Vitals Vitals: Vital Signs - 24 hr 12/02/21 16:06 Temperature 36.5 C Heart Rate 88 Respiratory 16 Rate Blood Pressure 140/72 H O2 Saturation 97 Oxygen O2 Source Room air PD MEDICAL DECISION MAKING - ED course Complexity details: considered differential (skin abscess that started draining itself. Still soft tissue infection. ), d/w patient Departure - Departure Disposition: 01 Home, Self Care Clinical Impression: Abscess of thigh Condition: Stable Record reviewed to determine appropriate education?: Yes Instructions: ED Staph Infec Abx Tx Only Follow-Up: Mary Gandhi ARNP [Primary Care Provider] - [facility] [Provider Group] Prescriptions: Doxycycline Hyclate 100 mg PO BID 7 Days #14 cap Ibuprofen [Motrin] 600 mg PO TID PRN #25 tab PRN Reason: Pain Comments: Warm ice compresses or soaks for the area tonight and tomorrow to promote further drainage from the site. I do not see any residual fluid right now on the bedside ultrasound so I do not see need to open the wound further unless it seems to reaccumulate. This is less common once it is drained and starting on antibiotics. Doxycycline twice daily for the next week for the infection. Ibuprofen 3 times a day with food for inflammation. Continue usual medications at home including your pain medicines. I would anticipate it feeling improved in 2 tomorrow and the next day. Once this is well-healed, may be prudent to consult with dermatology for potential of removing the outpouching of skin so that there is less chance of getting reinfected. This would want to be done with the infection fully cleared so that the area heals well. I transmitted your prescriptions to the [facility] pharmacy. Discharge Date/Time: 12/02/21 18:23
[2021-12-02] MEDS ORDERED: KETOROLAC 30 MG/ML VIAL IM STA (17:28)
[2021-12-02] MEDS ORDERED: HYDROmorphone 2 MG/ML VIAL IM STA (17:28)
[2021-12-02] MEDS ORDERED: DOXYCYCLINE 100 MG TABLET PO STA (17:28)
== END 2021-12-02 18:23 | disposition home or self-care (01) ==
LOC: ED 16:03
DX: L02.416 Cutaneous abscess of left lower limb (principal); E11.9 Type 2 diabetes mellitus without complications; Z79.84 Long term (current) use of oral hypoglycemic drugs; F17.200 Nicotine dependence, unspecified, uncomplicated
CPT/HCPCS: 96372; 99282; 99283; A9270; J1170

== ENCOUNTER 2021-12-05 16:02 | Emergency (ER) | payer MEDICAID ==
[2021-12-05] MEDS ORDERED: HYDROmorphone 1 MG/ML CARPUJECT IVP STA ×2 (16:53→18:00)
[2021-12-05] MEDS ORDERED: CLINDAMYCIN 900 MG/50 ML 50 ML IV ONE (16:53)
[2021-12-05] MEDS ORDERED: LIDOCAINE 1%-EPI 1:100000 20 ML MDV SUBQ STA (16:53)
--- NOTE | 2021-12-05 16:54 | ED Physician Documentation ---
PD HPI WOUND RECHECK - Stated complaint Stated Complaint: THIGH PAIN - Chief complaint Chief Complaint: Wound - Histroy obtained from History obtained from: Patient - Additional information Additional information: 51-year-old woman was seen by my partner a few days ago for skin infection in the left groin. Since then and being put on antibiotics she has worsened with more drainage. No fevers but pain is intolerable. 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 Psych: Depression, Anxiety Musculoskeletal: Osteoarthritis, Fibromyalgia, Chronic back pain Derm: Other - Past Surgical History Past Surgical History: Yes General: Cholecystectomy Ortho: Arthroscopic surgery, Carpal Tunnel surgery HEENT: Rhinoplasty - Present Medications Home Medications: Ambulatory Orders Medication Instructions Recorded Confirmed Brexpiprazole [Rexulti] 1 mg PO DAILY 09/08/18 03/17/21 Rabeprazole Sodium [Aciphex] 40 mg ORAL DAILY 09/08/18 03/17/21 Sertraline HCl [Zoloft] 100 mg ORAL BID 09/08/18 03/17/21 Aspirin [Aspirin EC] 81 mg PO DAILY 12/04/20 03/17/21 Levothyroxine [Synthroid] 25 mcg PO QDAC 12/04/20 03/17/21 Lisinopril [Zestril] 10 mg PO DAILY 12/04/20 03/16/21 Medroxyprogesterone Acetate 150 mg IM ONCE 12/04/20 03/17/21 [Depo-Provera] Promethazine [Phenergan] 25 mg PO Q6H PRN 12/04/20 03/17/21 metFORMIN [Glucophage] 500 mg PO DAILY 12/04/20 03/16/21 Albuterol Sulf [Ventolin Hfa 1 - 2 puffs INH Q4HR PRN 03/16/21 03/17/21 Inhaler] Alprazolam [Xanax] 1 mg PO TID 03/16/21 03/17/21 Furosemide [Lasix] 120 mg PO DAILY 03/16/21 03/17/21 Tiotropium [place] [Spiriva 1 puffs PO DAILY 03/16/21 03/17/21 Respimat] Oxycodone HCl/Acetaminophen 1 each PO Q6HR PRN 03/22/21 03/22/21 [Percocet 10-325 mg Tablet] Buspirone HCl 10 mg PO BID 05/25/21 05/25/21 Cyclobenzaprine [Flexeril] 10 mg PO TID PRN #20 tablet 05/25/21 HYDROcod/ACETAM 5/325 [[place] 5/325] 1 - 2 tablet PO Q6H PRN #14 tablet 05/25/21 Valacyclovir HCl [Valtrex] 1,000 mg PO DAILY 05/25/21 05/25/21 Doxycycline Hyclate 100 mg PO BID 7 Days #14 cap 12/02/21 Ibuprofen [Motrin] 600 mg PO TID PRN #25 tab 12/02/21 Oxycodone HCl/Acetaminophen 1 - 2 each PO Q6H PRN #14 tablet 12/05/21 [Percocet 5-325 mg Tablet] clindamycin HCL [Cleocin HCl] 300 mg PO QID #28 cap 12/05/21 - Allergies Allergies/Adverse Reactions: Allergies Allergy/AdvReac Type Severity Reaction Status Date / Time Egg Derived Allergy Emesis, Verified 12/05/21 16:14 stomach pain eucalyptus Allergy Anaphylaxis Verified 12/05/21 16:14 naproxen [From Aleve] Allergy Cramps Verified 12/05/21 16:14 Penicillins Allergy Anaphylaxis Verified 12/05/21 16:14 Sulfa (Sulfonamide Allergy Cramps Verified 12/05/21 16:14 Antibiotics) ketorolac [From Toradol] AdvReac Headache Verified 12/05/21 16:14 - Social History Does the pt smoke?: Yes Smoking Status: Current every day smoker Does the pt drink ETOH?: No Does the pt have substance abuse?: No - Immunizations Immunizations are current?: Yes - POLST Patient has POLST: No PD ED PE NORMAL - Vitals Vital signs reviewed: Yes (Modestly tachycardic) - General General: Alert and oriented X 3, No acute distress - Abdomen Abdomen: Normal bowel sounds, Soft, Non tender - Derm Derm: Other (She has significant cellulitis in the left groin with some areas of porous skin, could be consistent with hidradenitis although she has no history of that. No obvious fluctuant area.) - Neuro Neuro: Alert and oriented X 3, Normal speech Results - Vitals Vitals: Vital Signs - 24 hr 12/05/21 16:11 Temperature 36.3 C L Heart Rate 115 H Respiratory 20 Rate Blood Pressure 133/85 H O2 Saturation 95 Oxygen O2 Source Room air - Labs Labs: Laboratory Tests 12/05/21 12/05/21 12/05/21 17:01 17:01 17:01 WBC 12.9 H RBC 4.47 Hgb 15.0 Hct 44.0 MCV 98.4 MCH 33.6 H MCHC 34.1 RDW 14.0 Plt Count 314 MPV 10.0 Neut # (Auto) 8.8 H Lymph # (Auto) 3.0 [place] # (Auto) 0.8 Eos # (Auto) 0.3 Baso # (Auto) 0.1 Absolute Nucleated RBC 0.00 Nucleated RBC % 0.0 Sodium 136 Potassium 3.2 L Chloride 100 L Carbon Dioxide 27 Anion Gap 9.0 BUN 8 Creatinine 0.9 Estimated GFR (MDRD) 67 L Glucose 147 H Lactic Acid 1.5 Calcium 9.2 C-Reactive Protein 4.1 H Procedures - Abscess I&D (location) Left leg Preparation: Lidocaine 1% Incision: Incised with scalpel, Purulent drainage (Just a very small amount), Culture obtained Other: Pt tolerated well, Dressing applied, Antibiotic prescribed PD MEDICAL DECISION MAKING - ED course ED course: LRI NEC score 0. Necrotizing soft tissue infection considered, but on exploration of the wound during I&D does not seem to go very deep or very far. A culture was obtained. Departure - Departure Disposition: 01 Home, Self Care Clinical Impression: Abscess of thigh Condition: Good Record reviewed to determine appropriate education?: Yes Instructions: ED Abscess IandD Prescriptions: clindamycin HCL [Cleocin HCl] 300 mg PO QID #28 cap Oxycodone HCl/Acetaminophen [Percocet 5-325 mg Tablet] 1 - 2 each PO Q6H PRN #14 tablet PRN Reason: pain Comments: I sent your prescription electronically to [facility] in [place]. Return if worsening or if you develop high fever. We are culturing the drainage from the wound and if a resistant organism is identified we will call you in approximately 2 days. Let your pain management doctor know that we gave you some extra pain pills, call their office on Monday. Wound check with your doctor also on Monday, call first thing for an appointment.
[2021-12-05 17:13] LABS: BASOPHILS # (AUTO) 0.1 10^3/uL (0.0-0.1); BASOPHILS % (AUTO) 0.5 %; EOSINOPHILS # (AUTO) 0.3 10^3/uL (0.0-0.7); LYMPHOCYTES % (AUTO) 22.8 %; MEAN CORPUSCULAR HEMOGLOBIN 33.6 pg (27.0-31.0); MEAN CORPUSCULAR HGB CONC 34.1 g/dL (32.0-36.0); MEAN CORPUSCULAR VOLUME 98.4 fL (81.0-99.0); MONOCYTES # (AUTO) 0.8 10^3/uL (0.0-1.0); MONOCYTES % (AUTO) 6.3 %; NEUTROPHILS # (AUTO) 8.8 10^3/uL (1.5-6.6); NEUTROPHILS % (AUTO) 67.9 %; PLT - PLATELET COUNT 314 10^3/uL (130-450); RED BLOOD COUNT 4.47 10^6/uL (4.20-5.40); WHITE BLOOD COUNT 12.9 x10^3/uL (4.8-10.8)
[2021-12-05 17:29] LABS: CALCIUM 9.2 mg/dL (8.5-10.3); CREATININE 0.9 mg/dL (0.4-1.0); CRP - C-REACTIVE PROTEIN 4.1 mg/dL (0-1.0); POTASSIUM 3.2 mmol/L (3.5-5.0)
[2021-12-05 18:24] VITALS: BP 127/64
== END 2021-12-05 18:31 | disposition home or self-care (01) ==
LOC: ED 16:02
DX: L02.416 Cutaneous abscess of left lower limb (principal); F17.200 Nicotine dependence, unspecified, uncomplicated
CPT/HCPCS: 10060; 36415; 80048; 83605; 85025; 86140; 87040; 87070; 87205; 96365; 96375; 96376; 99282; 99284; J1170

== ENCOUNTER 2021-12-11 16:11 | Emergency (ER) | payer MEDICAID ==
[2021-12-11] MEDS ORDERED: HYDROmorphone 1 MG/ML CARPUJECT IVP STA (16:36)
--- NOTE | 2021-12-11 16:36 | ED Physician Documentation ---
PD HPI ABD PAIN - Stated complaint Stated Complaint: L SIDE PX - Chief complaint Chief Complaint: Abd Pain - History obtained from History obtained from: Patient - Additional information Additional information: 51-year-old woman with history of lupus, but no history of lupus nephritis or other kidney problems presents with about a month of left flank pain that is been mild but worse over the last few days and since last night has been associated with a feeling of being unable to urinate and foamy urine without hematuria or dysuria. Denies fevers or chills. No nausea. She has chronic pedal edema which is not worse than normal, in fact is not present on exam at this time. No history of renal colic. Recent skin infection in the groin that is much better. 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 Psych: Depression, Anxiety Musculoskeletal: Osteoarthritis, Fibromyalgia, Chronic back pain Derm: Other - Past Surgical History Past Surgical History: Yes General: Cholecystectomy Ortho: Arthroscopic surgery, Carpal Tunnel surgery HEENT: Rhinoplasty - Present Medications Home Medications: Ambulatory Orders Medication Instructions Recorded Confirmed Brexpiprazole [Rexulti] 1 mg PO DAILY 09/08/18 03/17/21 Rabeprazole Sodium [Aciphex] 40 mg ORAL DAILY 09/08/18 03/17/21 Sertraline HCl [Zoloft] 100 mg ORAL BID 09/08/18 03/17/21 Aspirin [Aspirin EC] 81 mg PO DAILY 12/04/20 03/17/21 Levothyroxine [Synthroid] 25 mcg PO QDAC 12/04/20 03/17/21 Lisinopril [Zestril] 10 mg PO DAILY 12/04/20 03/16/21 Medroxyprogesterone Acetate 150 mg IM ONCE 12/04/20 03/17/21 [Depo-Provera] Promethazine [Phenergan] 25 mg PO Q6H PRN 12/04/20 03/17/21 metFORMIN [Glucophage] 500 mg PO DAILY 12/04/20 03/16/21 Albuterol Sulf [Ventolin Hfa 1 - 2 puffs INH Q4HR PRN 03/16/21 03/17/21 Inhaler] Alprazolam [Xanax] 1 mg PO TID 03/16/21 03/17/21 Furosemide [Lasix] 120 mg PO DAILY 03/16/21 03/17/21 Tiotropium [place] [Spiriva 1 puffs PO DAILY 03/16/21 03/17/21 Respimat] Oxycodone HCl/Acetaminophen 1 each PO Q6HR PRN 03/22/21 03/22/21 [Percocet 10-325 mg Tablet] Buspirone HCl 10 mg PO BID 05/25/21 05/25/21 Cyclobenzaprine [Flexeril] 10 mg PO TID PRN #20 tablet 05/25/21 HYDROcod/ACETAM 5/325 [[place] 5/325] 1 - 2 tablet PO Q6H PRN #14 tablet 05/25/21 Valacyclovir HCl [Valtrex] 1,000 mg PO DAILY 05/25/21 05/25/21 Doxycycline Hyclate 100 mg PO BID 7 Days #14 cap 12/02/21 Ibuprofen [Motrin] 600 mg PO TID PRN #25 tab 12/02/21 Oxycodone HCl/Acetaminophen 1 - 2 each PO Q6H PRN #14 tablet 12/05/21 [Percocet 5-325 mg Tablet] clindamycin HCL [Cleocin HCl] 300 mg PO QID #28 cap 12/05/21 - Allergies Allergies/Adverse Reactions: Allergies Allergy/AdvReac Type Severity Reaction Status Date / Time Egg Derived Allergy Emesis, Verified 12/11/21 16:20 stomach pain eucalyptus Allergy Anaphylaxis Verified 12/11/21 16:20 naproxen [From Aleve] Allergy Cramps Verified 12/11/21 16:20 Penicillins Allergy Anaphylaxis Verified 12/11/21 16:20 Sulfa (Sulfonamide Allergy Cramps Verified 12/11/21 16:20 Antibiotics) ketorolac [From Toradol] AdvReac Headache Verified 12/11/21 16:20 - Social History Does the pt smoke?: Yes Smoking Status: Current every day smoker Does the pt drink ETOH?: No Does the pt have substance abuse?: No - Immunizations Immunizations are current?: Yes - POLST Patient has POLST: No PD ED PE NORMAL - Vitals Vital signs reviewed: Yes - General General: Alert and oriented X 3, No acute distress - Cardiac Cardiac: RRR, No murmur - Respiratory Respiratory: No respiratory distress, Clear bilaterally - Abdomen Abdomen: Normal bowel sounds, Soft, Non tender, Other (Per oil change technician bladder scan only about 300 mils in the bladder.) - Back Back: No CVA TTP, No spinal TTP - Extremities Extremities: No edema, No calf tenderness / cord - Neuro Neuro: Alert and oriented X 3, Normal speech Results - Vitals Vitals: Vital Signs - 24 hr 12/11/21 12/11/21 16:14 17:43 Temperature 36.8 C 36.8 C Heart Rate 97 88 Respiratory 18 16 Rate Blood Pressure 140/82 H 130/80 O2 Saturation 96 98 Oxygen O2 Source Room air - Labs Labs: Laboratory Tests 12/11/21 12/11/21 12/11/21 16:40 16:40 16:40 WBC 14.0 H RBC 4.41 Hgb 14.7 Hct 43.1 MCV 97.7 MCH 33.3 H MCHC 34.1 RDW 13.3 Plt Count 366 MPV 10.1 Neut # (Auto) 9.4 H Lymph # (Auto) 3.0 [place] # (Auto) 0.8 Eos # (Auto) 0.6 Baso # (Auto) 0.1 Absolute Nucleated RBC 0.00 Nucleated RBC % 0.0 Sodium 133 L Potassium 3.3 L Chloride 94 L Carbon Dioxide 27 Anion Gap 12.0 BUN 6 Creatinine 1.0 Estimated GFR (MDRD) 59 L Glucose 133 H Calcium 8.9 Total Bilirubin 0.4 AST 16 ALT 19 Alkaline Phosphatase 128 H Total Protein 7.3 Albumin 3.8 Globulin 3.5 Albumin/Globulin Ratio 1.1 Lipase 27 Urine Color YELLOW Urine Clarity CLEAR Urine pH 6.5 Ur Specific [place] 1.015 Urine Protein NEGATIVE Urine Glucose (UA) NEGATIVE Urine Ketones NEGATIVE Urine Occult Blood NEGATIVE Urine Nitrite NEGATIVE Urine Bilirubin NEGATIVE Urine Urobilinogen 0.2 (NORMAL) Ur Leukocyte Esterase NEGATIVE Ur Microscopic Review NOT INDICATED Urine Culture Comments NOT INDICATED Urine HCG, Qual NEGATIVE PD MEDICAL DECISION MAKING - ED course ED course: 51-year-old woman presents with subacute left flank pain and now frothy urine. Given the apparent underlying lupus some sort of nephritis is of course considered, that said her urinalysis is without proteinuria or any other abnormalities. CAT scan of the abdomen did not demonstrate any obstructive uropathy or ureterolithiasis. She is chronically in pain management and has plenty of pain medication at home. Departure - Departure Disposition: 01 Home, Self Care Clinical Impression: Flank pain, chronic Condition: Good Record reviewed to determine appropriate education?: Yes Instructions: ED Acute Pain [facility] Comments: As discussed, the cause of your pain is not quite clear. There is no evidence of kidney infection or inflammation, or kidney stone. Return for new or worsening symptoms, follow-up with your doctor next week as is already scheduled. Tylenol as needed for pain in addition to your usual pain management routine. Discharge Date/Time: 12/11/21 17:43
[2021-12-11 16:48] LABS: BASOPHILS # (AUTO) 0.1 10^3/uL (0.0-0.1); BASOPHILS % (AUTO) 0.8 %; EOSINOPHILS # (AUTO) 0.6 10^3/uL (0.0-0.7); EOSINOPHILS % (AUTO) 4.5 %; HCT - HEMATOCRIT 43.1 % (37.0-47.0); HGB - HEMOGLOBIN 14.7 g/dL (12.0-16.0); LYMPHOCYTES % (AUTO) 21.4 %; MEAN CORPUSCULAR HEMOGLOBIN 33.3 pg (27.0-31.0); MEAN CORPUSCULAR HGB CONC 34.1 g/dL (32.0-36.0); MEAN CORPUSCULAR VOLUME 97.7 fL (81.0-99.0); MEAN PLATELET VOLUME 10.1 fL (7.9-10.8); MONOCYTES # (AUTO) 0.8 10^3/uL (0.0-1.0); MONOCYTES % (AUTO) 5.6 %; NEUTROPHILS # (AUTO) 9.4 10^3/uL (1.5-6.6); NEUTROPHILS % (AUTO) 67.3 %; PLT - PLATELET COUNT 366 10^3/uL (130-450); RED BLOOD COUNT 4.41 10^6/uL (4.20-5.40); RED CELL DISTRIBUTION WIDTH 13.3 % (12.0-15.0)
[2021-12-11 16:54] LABS: BILIRUBIN,URINE NEGATIVE (NEGATIVE); GLUCOSE, URINE (UA) NEGATIVE (NEGATIVE); KETONES,URINE (UA) NEGATIVE (NEGATIVE); LEUKOCYTE ESTERASE, URINE NEGATIVE (NEGATIVE); NITRITE,URINE NEGATIVE (NEGATIVE); OCCULT BLOOD,URINE NEGATIVE (NEGATIVE); PH,URINE 6.5 PH (5.0-7.5); PROTEIN,URINE NEGATIVE (NEGATIVE); UROBILINOGEN,URINE 0.2 (NORMAL) E.U./dL (NORMAL)
[2021-12-11 16:59] LABS: CLARITY,URINE CLEAR (CLEAR); HCG UR QUAL NEGATIVE
[2021-12-11 17:01] LABS: ALBUMIN 3.8 g/dL (3.2-5.5); ALBUMIN/GLOBULIN RATIO 1.1 (1.0-2.2); BILIRUBIN,TOTAL 0.4 mg/dL (0.2-1.0); CALCIUM 8.9 mg/dL (8.5-10.3); POTASSIUM 3.3 mmol/L (3.5-5.0); TOTAL PROTEIN 7.3 g/dL (6.7-8.2)
--- NOTE | 2021-12-11 17:11 | CT Report ---
PROCEDURE: Abdomen/Pelvis WO INDICATIONS: L flank pain TECHNIQUE: Noncontrast 5 mm thick sections acquired from the diaphragms to the symphysis. 5 mm coronal and sagi ttal reformats were then performed. For radiation dose reduction, the following was used: automated exposure control, adjustment of mA and/or kV according to patient size. COMPARISON: Correlation is made with pelvis CT, 12/04/2020. Correlation is also made with abdomen and pelvis CT, 07/01/2019 FINDINGS: Image quality: Excellent. ABDOMEN: Lung bases: Lung bases are clear. Heart size is normal. Solid organs: The liver is prominent in size. The spleen is enlarged measuring 14 cm in greatest axia l dimension Gallbladder has been removed. Pancreas is normal in contours. Within the central left a drenal gland, there is a focal nodule seen that measures 1.5 cm and measures 0 Hounsfield units. No r ight-sided adrenal nodules. Kidneys are normal in size, without hydronephrosis or nephrolithiasis. Peritoneum and bowel: Unenhanced bowel loops demonstrate normal wall thickness and caliber. No free fluid or air. Nodes and vessels: No retroperitoneal or mesenteric adenopathy by size criteria. Aorta and inferior vena cava are normal in caliber. Miscellaneous: No ventral hernias. PELVIS: Genitourinary: Bladder wall thickness is normal. The uterus demonstrates an unremarkable appearance for age. No adnexal masses are seen. Miscellaneous: No inguinal hernias or adenopathy. Bones: No suspicious bony lesions. No vertebral body compression fractures. Focal L4-L5 and L5-S1 degenerative change can be seen. IMPRESSION: No kidney stones or hydronephrosis. Incidental note is made of: Cholecystectomy Hepatosplenomegaly Benign, lipid rich left adrenal adenoma Premature lower lumbar spine degenerative change Reviewed by: Afshin Phoenix MD on 12/11/2021 4:10 PM [facility] Approved by: Afshin Phoenix MD on 12/11/2021 4:10 PM [facility] Station ID: [id number]
[2021-12-11 17:44] VITALS: BP 130/80
== END 2021-12-11 17:43 | disposition home or self-care (01) ==
LOC: ED 16:11
DX: R10.12 Left upper quadrant pain (principal); F17.200 Nicotine dependence, unspecified, uncomplicated; E11.9 Type 2 diabetes mellitus without complications; Z79.84 Long term (current) use of oral hypoglycemic drugs; G89.29 Other chronic pain
CPT/HCPCS: 36415; 51798; 74176; 80053; 81003; 81025; 83690; 85025; 96374; 99284; J1170; 81001; 87086

== ENCOUNTER 2022-02-01 17:05 | Outpatient (CLI) | payer MEDICAID | END 2022-02-01 17:06 | disposition critical access hospital (66) | LOC: EMS 17:05 | DX: R10.11 Right upper quadrant pain (principal); R14.0 Abdominal distension (gaseous) | CPT/HCPCS: A0425; A0429; A0999 ==

== ENCOUNTER 2022-02-01 17:20 | Emergency (ER) | payer MEDICAID ==
[2022-02-01 17:30] VITALS: BP 149/86
--- OUTSIDE RECORDS SUMMARY | 2022-02-01 17:30 | EXTERNAL MEDICAL SUMMARY RPT | Continuity of Care Document ---
:1970 Author Organization [facility] Address [address] [place] [address] Phone Care Team Providers Name Role Phone Celestine Unavailable Unavailable Gray Unavailable Unavailable Allergies No information. Encounters No information. Medications date description facility 20211103 Oxycodone Hydrochloride 5 MG Oral Table t [facility] Problems date description facility [id number] Stiffness of right shoulder, not elsewh ere classified [facility] Procedures date description facility [id number] General Physician [facility] Results No information. Vital Signs date measurement value source 20211103 weight_standard 142.43 lb 20211103 weight_metric 64.6 kg 20211103 temperature_standard 97.8 F 20211103 temperature_metric 36.56 C 20211103 respiration_rate 16 /min 20211103 height_standard 65 in 20211103 height_metric 165.1 cm 20211103 heart_rate 83 /min 20211103 BP_systolic 133 mm[Hg] 20211103 BP_diastolic 68 mm[Hg] 20211103 BMI 52.2 kg/m2
[2022-02-01] MEDS ORDERED: ONDANSETRON 4 MG/2 ML VIAL IVP STA (17:33)
[2022-02-01] MEDS ORDERED: HYDROmorphone 1 MG/ML CARPUJECT IVP STA ×2 (17:33→18:57)
[2022-02-01] MEDS ORDERED: SODIUM CHLORIDE 0.9% 1,000 ML IV STA (17:33)
[2022-02-01] MEDS ORDERED: PANTOPRAZOLE 40 MG VIAL IVP STA (17:33)
--- NOTE | 2022-02-01 17:36 | ED Physician Documentation ---
History of Present Illness - Stated complaint Stated Complaint: LIVER PAIN - Chief complaint Chief Complaint: Abd Pain - Additonal information Additional information: 51-year-old female presents emergency department for evaluation of 2 days of upper abdominal pain and discomfort. It became severe this afternoon. Nausea and vomiting and diarrhea. Nonbloody. No melena hematochezia. She denies any fevers. She does have a history of acid reflux for which she takes Aciphex. Also has a history of previous cholecystectomy. She states that she has a remote history of pancreatitis. No alcohol use. Review of Systems Constitutional: denies: Fever, Chills Throat: reports: Reviewed and negative Cardiac: reports: Reviewed and negative Respiratory: reports: Reviewed and negative GI: reports: Abdominal Pain, Nausea, Vomiting, Diarrhea. 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 Psych: Depression, Anxiety Musculoskeletal: Osteoarthritis, Fibromyalgia, Chronic back pain Derm: Other - Past Surgical History Past Surgical History: Yes General: Cholecystectomy Ortho: Arthroscopic surgery, Carpal Tunnel surgery HEENT: Rhinoplasty - Present Medications Home Medications: Ambulatory Orders Medication Instructions Recorded Confirmed Brexpiprazole [Rexulti] 1 mg PO DAILY 09/08/18 01/20/22 Rabeprazole Sodium [Aciphex] 40 mg ORAL DAILY 09/08/18 01/20/22 Sertraline HCl [Zoloft] 100 mg ORAL BID 09/08/18 01/20/22 Aspirin [Aspirin EC] 81 mg PO DAILY 12/04/20 01/20/22 Levothyroxine [Synthroid] 25 mcg PO QDAC 12/04/20 01/20/22 Lisinopril [Zestril] 10 mg PO DAILY 12/04/20 01/20/22 Promethazine [Phenergan] 25 mg PO Q6H PRN 12/04/20 01/20/22 metFORMIN [Glucophage] 500 mg PO DAILY 12/04/20 01/20/22 Albuterol Sulf [Ventolin Hfa 1 - 2 puffs INH Q4HR PRN 03/16/21 01/20/22 Inhaler] Alprazolam [Xanax] 1 mg PO TID 03/16/21 01/20/22 Furosemide [Lasix] 120 mg PO DAILY 03/16/21 01/20/22 Tiotropium [place] [Spiriva 1 puffs PO DAILY 03/16/21 01/20/22 Respimat] Buspirone HCl 10 mg PO BID 05/25/21 01/20/22 Cyclobenzaprine [Flexeril] 10 mg PO TID PRN #20 tablet 05/25/21 01/20/22 Ibuprofen [Motrin] 600 mg PO TID PRN #25 tab 12/02/21 01/20/22 predniSONE [Deltasone] 60 mg PO DAILY 5 Days #15 tablet 01/20/22 Pantoprazole Sodium [Protonix] 40 mg PO DAILY #30 tab 02/01/22 - Allergies Allergies/Adverse Reactions: Allergies Allergy/AdvReac Type Severity Reaction Status Date / Time Egg Derived Allergy Emesis, Verified 02/01/22 17:27 stomach pain eucalyptus Allergy Anaphylaxis Verified 02/01/22 17:27 naproxen [From Aleve] Allergy Cramps Verified 02/01/22 17:27 Penicillins Allergy Anaphylaxis Verified 02/01/22 17:27 Sulfa (Sulfonamide Allergy Cramps Verified 02/01/22 17:27 Antibiotics) ketorolac [From Toradol] AdvReac Headache Verified 02/01/22 17:27 - Social History Does the pt smoke?: Yes Smoking Status: Current every day smoker Does the pt drink ETOH?: No Does the pt have substance abuse?: No - Immunizations Immunizations are current?: Yes - POLST Patient has POLST: No PD ED PE EXPANDED - General General: Alert, No acute distress - Cardiac Cardiac: Regular Rate, Radial strong equal, Pedal strong equal, Cap refill < 2 sec. No: Murmur Present - Respiratory Respiratory: Clear to ausultation estuardo. No: Distress, Labored - Abdomen Abdomen: Normal Bowel sounds, Tender to palpation, Other (Tenderness to the upper abdomen without guarding or rebound. Exam is limited by body habitus.) - Derm Derm: Normal color, Warm and dry. No: Rash - Extremities Extremities: Normal. No: Deformity, Tenderness - Neuro Neuro: Alert and Oriented X 3, CNII-XII intact - GCS Eye Opening: Spontaneous Motor: Obeys Commands Verbal: Oriented Total: 15 Results - Vitals Vitals: Vital Signs - 24 hr 02/01/22 02/01/22 17:28 17:30 Temperature 37.0 C 37.0 C Heart Rate 97 97 Respiratory 19 19 Rate Blood Pressure 149/86 H 149/86 H O2 Saturation 100 100 Oxygen O2 Source Room air - Labs Labs: Laboratory Tests 02/01/22 02/01/22 02/01/22 17:30 17:30 18:16 WBC 15.8 H RBC 4.31 Hgb 14.4 Hct 41.3 MCV 95.8 MCH 33.4 H MCHC 34.9 RDW 12.9 Plt Count 305 MPV 9.9 Neut # (Auto) 11.0 H Lymph # (Auto) 3.2 [place] # (Auto) 1.0 Eos # (Auto) 0.4 Baso # (Auto) 0.1 Absolute Nucleated RBC 0.00 Nucleated RBC % 0.0 Sodium 132 L Potassium 3.0 L Chloride 96 L Carbon Dioxide 24 Anion Gap 12.0 BUN 7 Creatinine 0.6 Estimated GFR (MDRD) 106 Glucose 129 H Calcium 9.0 Total Bilirubin 0.7 AST 16 ALT 21 Alkaline Phosphatase 106 Total Protein 6.8 Albumin 3.6 Globulin 3.2 Albumin/Globulin Ratio 1.1 Lipase 40 Urine Color YELLOW Urine Clarity CLEAR Urine pH 6.0 Ur Specific [place] 1.010 Urine Protein NEGATIVE Urine Glucose (UA) NEGATIVE Urine Ketones NEGATIVE Urine Occult Blood NEGATIVE Urine Nitrite NEGATIVE Urine Bilirubin NEGATIVE Urine Urobilinogen 0.2 (NORMAL) Ur Leukocyte Esterase NEGATIVE Ur Microscopic Review NOT INDICATED Urine Culture Comments NOT INDICATED Urine HCG, Qual NEGATIVE - Rads (name of study) CT abd Radiology: Final report received (No acute CT findings in the abdomen or pelvis. Spleen no megaly and lateral adenoma) PD MEDICAL DECISION MAKING - ED course Complexity details: reviewed old records, reviewed results, re-evaluated patient, considered differential, d/w patient ED course: 51-year-old female presents emergency department for evaluation of acute upper abdominal pain with associated nausea vomiting and diarrhea. She has a longstanding history of acid reflux for which she takes Aciphex. She also has a previous history of cholecystectomy. On exam she is tender in the upper abdomen without guarding or rebound. Her exam is markedly limited however by body habitus. Screening labs were most significant for a moderate leukocytosis with a white count of nearly 16,000. I believe this is secondary to marginalization. There was no early left shift. Urine showed no signs of infection. Electrolytes are most significant for mild hypokalemia this is likely secondary to vomiting and diarrhea and was repleted here in the ER. 9 CT of the abdomen did not show any findings to suggest bowel obstruction, diverticulitis. Incidental findings are again made of noted splenomegaly. Here in the emergency department patient was given a dose of Dilaudid as well as Protonix. I suspect that she has worsening acid reflux or gastritis. She declined prescription for pain medication stating she has oxycodone at home as well as Zofran. Patient is advised clear liquid diet for the next 24 to 48 hours. She will follow-up with primary care provider for repeat EGD which she states is long overdue. Emergent return precautions were discussed for fevers, uncontrolled vomiting, melena hematochezia. Departure - Departure Disposition: 01 Home, Self Care Clinical Impression: Upper abdominal pain, Splenomegaly, Hypokalemia Condition: Stable Record reviewed to determine appropriate education?: Yes Instructions: ED Gastritis Follow-Up: Mary Gandhi ARNP [Primary Care Provider] - Prescriptions: Pantoprazole Sodium [Protonix] 40 mg PO DAILY #30 tab Comments: Rosa you are seen today in the emergency department for upper abdominal pain, vomiting and diarrhea. Your screening labs did not show anything worrisome though your potassium level was a little low. We did give you some oral potassium in the emergency department to fix this. This was most likely because of the vomiting and diarrhea. The CT of your abdomen did not show any findings to suggest pancreatitis, bowel obstruction, appendicitis or diverticulitis. We do again make the incidental findings of splenomegaly, which is simply an enlarged spleen. As we discussed at the bedside I suspect that which you have is worsening gastritis. For the next 24 to 48 hours I recommend that you sip clear liquids. Avoid caffeinated foods. Avoid spicy foods. Avoid nicotine or vaping if you are able to. Would like you to start taking the Protonix each day to help reduce the amount of acid. You do have oxycodone at home which she can use for severe pain. I do recommend that you use the Zofran for nausea. Please discuss this ED visit with your primary care provider. You may benefit from referral to a social worker health services for repeat EGD. Return to the ER if you develop fevers, have uncontrolled vomiting, black or bloody stools
[2022-02-01 17:37] LABS: BASOPHILS # (AUTO) 0.1 10^3/uL (0.0-0.1); BASOPHILS % (AUTO) 0.5 %; EOSINOPHILS # (AUTO) 0.4 10^3/uL (0.0-0.7); EOSINOPHILS % (AUTO) 2.2 %; HCT - HEMATOCRIT 41.3 % (37.0-47.0); HGB - HEMOGLOBIN 14.4 g/dL (12.0-16.0); LYMPHOCYTES # (AUTO) 3.2 10^3/uL (1.5-3.5); LYMPHOCYTES % (AUTO) 20.4 %; MEAN CORPUSCULAR HEMOGLOBIN 33.4 pg (27.0-31.0); MEAN CORPUSCULAR HGB CONC 34.9 g/dL (32.0-36.0); MEAN CORPUSCULAR VOLUME 95.8 fL (81.0-99.0); MEAN PLATELET VOLUME 9.9 fL (7.9-10.8); NEUTROPHILS % (AUTO) 70.2 %; PLT - PLATELET COUNT 305 10^3/uL (130-450); RED BLOOD COUNT 4.31 10^6/uL (4.20-5.40); RED CELL DISTRIBUTION WIDTH 12.9 % (12.0-15.0); WHITE BLOOD COUNT 15.8 x10^3/uL (4.8-10.8)
[2022-02-01 17:50] LABS: ALBUMIN 3.6 g/dL (3.2-5.5); ALBUMIN/GLOBULIN RATIO 1.1 (1.0-2.2); BILIRUBIN,TOTAL 0.7 mg/dL (0.2-1.0); CREATININE 0.6 mg/dL (0.4-1.0); TOTAL PROTEIN 6.8 g/dL (6.7-8.2)
[2022-02-01 18:19] LABS: BILIRUBIN,URINE NEGATIVE (NEGATIVE); GLUCOSE, URINE (UA) NEGATIVE (NEGATIVE); KETONES,URINE (UA) NEGATIVE (NEGATIVE); LEUKOCYTE ESTERASE, URINE NEGATIVE (NEGATIVE); NITRITE,URINE NEGATIVE (NEGATIVE); OCCULT BLOOD,URINE NEGATIVE (NEGATIVE); PROTEIN,URINE NEGATIVE (NEGATIVE); UROBILINOGEN,URINE 0.2 (NORMAL) E.U./dL (NORMAL)
[2022-02-01] MEDS ORDERED: IOVERSOL 320 100 ML VIAL IVP ONE ×2 (18:21→19:02)
[2022-02-01 18:24] LABS: CLARITY,URINE CLEAR (CLEAR); HCG UR QUAL NEGATIVE
--- NOTE | 2022-02-01 18:43 | CT Report ---
PROCEDURE: CT abdomen and pelvis with contrast INDICATIONS: upper abd pain; n/v CONTRAST: IV CONTRAST: Optiray 320 ml: 100 PO CONTRAST: *NO PO CONTRAST TECHNIQUE: After the administration of contrast, 5 mm thick sections acquired from the diaphragms to the sym physis. 5 mm thick coronal and sagittal reformats were acquired. For radiation dose reduction, the following was used: automated exposure control, adjustment of mA and/or kV according to patient size . COMPARISON: None. FINDINGS: Lower thorax: The lung bases are clear. Heart size normal. No hiatal hernia. Liver: Normal in size and attenuation. No contour deformity present. Biliary system: Cholecystectomy Pancreas: Unremarkable without mass or inflammation evident. Spleen: Spleen is enlarged at 13.7 cm. Adrenals: Small low-density left adrenal nodule remains unchanged from the prior Reproductive system: Unremarkable as visualized. Urinary system: Normal renal size and attenuation. No renal calculi, hydronephrosis, or solid mass p resent. Urinary bladder unremarkable. Gastrointestinal system: The bowel appears unremarkable with no evidence of bowel obstruction or inf lammation. The stomach appears unremarkable. Appendix: No findings to suggest acute appendicitis. Peritoneal spaces: No mesenteric or retroperitoneal adenopathy. No free air. No free fluid. Vasculature: The IVC, aorta and iliac vasculature are unremarkable. Musculoskeletal: Normal bone mineralization. No acute fractures. Abdominal wall intact without kendra dence of ventral or inguinal hernias. IMPRESSION: 1. No acute CT findings in the abdomen or pelvis. 2. Splenomegaly and lateral adenoma Reviewed by: Palmer Davis MD on 02/01/2022 5:42 PM ORALIA Approved by: Palmer Davis MD on 02/01/2022 5:42 PM AKDT Station ID: [id number]
[2022-02-01] MEDS ORDERED: POTASSIUM CHLORIDE 20 MEQ TABLET PO STA (18:46)
== END 2022-02-01 19:31 | disposition home or self-care (01) ==
LOC: EDUNIT# → ED 17:20
DX: E87.6 Hypokalemia (principal); R10.10 Upper abdominal pain, unspecified; E11.9 Type 2 diabetes mellitus without complications; Z79.84 Long term (current) use of oral hypoglycemic drugs; F17.200 Nicotine dependence, unspecified, uncomplicated; R16.1 Splenomegaly, not elsewhere classified
CPT/HCPCS: 36415; 74177; 80053; 81003; 81025; 83690; 85025; 96374; 96375; 96376; 99284; A9270; J1170; Q9967; 81001; 87086

== ENCOUNTER 2022-02-11 13:00 | Emergency (ER) | payer MEDICAID ==
[2022-02-11 13:29] LABS: BASOPHILS # (AUTO) 0.1 10^3/uL (0.0-0.1); BASOPHILS % (AUTO) 0.7 %; EOSINOPHILS # (AUTO) 0.3 10^3/uL (0.0-0.7); EOSINOPHILS % (AUTO) 4.5 %; HCT - HEMATOCRIT 40.7 % (37.0-47.0); LYMPHOCYTES # (AUTO) 2.1 10^3/uL (1.5-3.5); LYMPHOCYTES % (AUTO) 27.8 %; MEAN CORPUSCULAR HEMOGLOBIN 33.6 pg (27.0-31.0); MEAN CORPUSCULAR HGB CONC 34.4 g/dL (32.0-36.0); MEAN CORPUSCULAR VOLUME 97.6 fL (81.0-99.0); MEAN PLATELET VOLUME 9.9 fL (7.9-10.8); MONOCYTES # (AUTO) 0.4 10^3/uL (0.0-1.0); MONOCYTES % (AUTO) 5.5 %; NEUTROPHILS # (AUTO) 4.6 10^3/uL (1.5-6.6); NEUTROPHILS % (AUTO) 61.1 %; PLT - PLATELET COUNT 277 10^3/uL (130-450); RED BLOOD COUNT 4.17 10^6/uL (4.20-5.40); WHITE BLOOD COUNT 7.5 x10^3/uL (4.8-10.8)
[2022-02-11 13:42] LABS: ALBUMIN 3.5 g/dL (3.2-5.5); BILIRUBIN,TOTAL 0.3 mg/dL (0.2-1.0); CALCIUM 8.5 mg/dL (8.5-10.3); CREATININE 0.6 mg/dL (0.4-1.0); POTASSIUM 3.4 mmol/L (3.5-5.0); TOTAL PROTEIN 6.9 g/dL (6.7-8.2)
[2022-02-11] MEDS ORDERED: diphenhydrAMINE INJ 50 MG/ML VIAL IVP STA (14:09)
[2022-02-11] MEDS ORDERED: SODIUM CHLORIDE 0.9% 1,000 ML IV STA ×2 (14:09→15:16)
[2022-02-11] MEDS ORDERED: PROCHLORPERAZINE 10 MG/2 ML VIAL IVP STA (14:09)
--- NOTE | 2022-02-11 14:12 | ED Physician Documentation ---
PD HPI NVD - Stated complaint Stated Complaint: NAUSEA - Chief complaint Chief Complaint: Abd Pain - History obtained from History obtained from: Patient - History of Present Illness Timing - onset: How many months ago (11) Timing - details: Gradual onset, Still present, Waxing and waning Associated symptoms: Abdominal pain, Loss of appetite, Weight loss Improved by: Vomiting Worsened by: Eating Similar symptoms before: Diagnosis (gastritis) Recently seen: Emergency Dept - Additonal information Additional information: 52-year-old female presents with 12 days of nausea and vomiting. She has been seen in the emergency department and hydrated she is had some improvement with some Zofran and now this is stopped working. She had previously had some improvement with promethazine and that stopped working. She presents now with feeling dehydrated and at the request of her doctor she is come back to the emergency department. She is most recently been placed onto Aciphex. Despite this she has not had improvement. She has not had this happen to her previously. She does have a history of ulcerative colitis and she does have chronic diarrhea. 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 : None Psych: Depression, Anxiety Musculoskeletal: Osteoarthritis, Fibromyalgia, Chronic back pain Derm: Other - Past Surgical History Past Surgical History: Yes General: Cholecystectomy Ortho: Arthroscopic surgery, Carpal Tunnel surgery HEENT: Rhinoplasty - Present Medications Home Medications: Ambulatory Orders Medication Instructions Recorded Confirmed Brexpiprazole [Rexulti] 1 mg PO DAILY 09/08/18 02/11/22 Rabeprazole Sodium [Aciphex] 40 mg ORAL DAILY 09/08/18 02/11/22 Sertraline HCl [Zoloft] 100 mg ORAL BID 09/08/18 02/11/22 Aspirin [Aspirin EC] 81 mg PO DAILY 12/04/20 02/11/22 Lisinopril [Zestril] 10 mg PO DAILY 12/04/20 02/11/22 metFORMIN [Glucophage] 500 mg PO DAILY 12/04/20 02/11/22 Albuterol Sulf [Ventolin Hfa 1 - 2 puffs INH Q4HR PRN 03/16/21 02/11/22 Inhaler] Alprazolam [Xanax] 1 mg PO TID 03/16/21 02/11/22 Furosemide [Lasix] 120 mg PO DAILY 03/16/21 02/11/22 Tiotropium [place] [Spiriva 1 puffs PO DAILY 03/16/21 02/11/22 Respimat] Ibuprofen [Motrin] 600 mg PO TID PRN #25 tab 12/02/21 02/11/22 Pantoprazole Sodium [Protonix] 40 mg PO DAILY #30 tab 02/01/22 02/11/22 Oxycodone HCl/Acetaminophen 1 tab PO 5XD 02/11/22 02/11/22 [Percocet 10-325 mg Tablet] Prochlorperazine Maleate 10 mg PO Q4HR PRN #20 tab 02/11/22 [Compazine] - Allergies Allergies/Adverse Reactions: Allergies Allergy/AdvReac Type Severity Reaction Status Date / Time Egg Derived Allergy Emesis, Verified 02/11/22 13:10 stomach pain eucalyptus Allergy Anaphylaxis Verified 02/11/22 13:10 naproxen [From Aleve] Allergy Cramps Verified 02/11/22 13:10 Penicillins Allergy Anaphylaxis Verified 02/11/22 13:10 Sulfa (Sulfonamide Allergy Cramps Verified 02/11/22 13:10 Antibiotics) ketorolac [From Toradol] AdvReac Headache Verified 02/11/22 13:10 - Social History Does the pt smoke?: Yes Smoking Status: Current every day smoker Does the pt drink ETOH?: No Does the pt have substance abuse?: No - Immunizations Immunizations are current?: Yes - POLST Patient has POLST: No PD ED PE NORMAL - Vitals Vital signs reviewed: Yes - General General: Alert and oriented X 3, No acute distress, Well developed/nourished, Other (overweight 52 y/o female in no distress) - HEENT HEENT: Atraumatic, PERRL, EOMI, Other (dry mucuos membranes) - Neck Neck: Supple, no meningeal sign, No bony TTP - Cardiac Cardiac: RRR, No murmur - Respiratory Respiratory: No respiratory distress, Clear bilaterally - Abdomen Abdomen: Normal bowel sounds, Soft, Non distended, No organomegaly, Other (mild epigastric tenderness to deep palpation) - Back Back: No CVA TTP, No spinal TTP - Derm Derm: Normal color, Warm and dry, No rash - Extremities Extremities: No deformity, No edema - Neuro Neuro: Alert and oriented X 3, 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, No motor deficit, No sensory deficit, Normal speech Eye Opening: Spontaneous Motor: Obeys Commands Verbal: Oriented GCS Score: 15 - Psych Psych: Normal mood, Normal affect Results - Vitals Vitals: Vital Signs - 24 hr 02/11/22 13:07 Temperature 36.0 C L Heart Rate 83 Respiratory 18 Rate Blood Pressure 119/71 O2 Saturation 98 Oxygen O2 Source Room air - Labs Labs: Laboratory Tests 02/11/22 02/11/22 13:24 13:24 WBC 7.5 RBC 4.17 L Hgb 14.0 Hct 40.7 MCV 97.6 MCH 33.6 H MCHC 34.4 RDW 13.0 Plt Count 277 MPV 9.9 Neut # (Auto) 4.6 Lymph # (Auto) 2.1 [place] # (Auto) 0.4 Eos # (Auto) 0.3 Baso # (Auto) 0.1 Absolute Nucleated RBC 0.00 Nucleated RBC % 0.0 Sodium 134 L Potassium 3.4 L Chloride 93 L Carbon Dioxide 30 Anion Gap 11.0 BUN 7 Creatinine 0.6 Estimated GFR (MDRD) 106 Glucose 146 H Calcium 8.5 Total Bilirubin 0.3 AST 26 ALT 43 Alkaline Phosphatase 147 H Total Protein 6.9 Albumin 3.5 Globulin 3.4 Albumin/Globulin Ratio 1.0 Lipase 26 Procedures - IVC sono (time) 1400 Bedside IVC sono: IVC measures (cm) (0.75), IVC collapsed c insp (cm) (complete), Dehydration (est 2 + liter deficit) PD MEDICAL DECISION MAKING - ED course Complexity details: reviewed old records, reviewed results, re-evaluated patient, considered differential, d/w patient ED course: 52-year-old female with a history of reflux has developed nausea and vomiting with epigastric pain and she is dehydrated today. She is administered intravenous saline and requires 2 L for completion of hydration. She is administered Compazine and Benadryl intravenously with improvement in her nausea. We will start her on some Compazine today. She will need follow-up with surgery for endoscopy. Departure - Departure Disposition: 01 Home, Self Care Clinical Impression: Dehydration Gastritis Qualifiers: Gastritis type: unspecified gastritis Chronicity: acute Gastritis bleeding: without bleeding Qualified Code(s): K29.00 - Acute gastritis without bleeding Condition: Stable Instructions: ED PUD Vs Gastritis, ED Dehydration Follow-Up: Mary Gandhi ARNP [Primary Care Provider] - Jean Paul Birmingham MD [Provider Admit Priv/Credential] - Prescriptions: Prochlorperazine Maleate [Compazine] 10 mg PO Q4HR PRN #20 tab PRN Reason: Nausea / Vomiting Comments: Rosa, today it looks like you had some improvement with the Compazine and I have E scribed this to Michelle in [place]. A follow up with the surgeon for endoscopy is indicated. Follow up with your primary for referral.
[2022-02-11 15:51] VITALS: BP 120/66
== END 2022-02-11 15:51 | disposition home or self-care (01) ==
LOC: ED 13:00
DX: K29.00 Acute gastritis without bleeding (principal); E86.0 Dehydration; E11.9 Type 2 diabetes mellitus without complications; Z79.84 Long term (current) use of oral hypoglycemic drugs; F17.200 Nicotine dependence, unspecified, uncomplicated
CPT/HCPCS: 36415; 80053; 83690; 85025; 96374; 96375; 99283; J1200

== ENCOUNTER 2022-02-25 14:05 | Emergency (ER) | payer MEDICAID ==
[2022-02-25] MEDS ORDERED: oxyCODONE 5 MG TABLET PO STA (15:49)
--- NOTE | 2022-02-25 15:52 | ED Physician Documentation ---
History of Present Illness - Stated complaint Stated Complaint: RT KNEE PX - Chief complaint Chief Complaint: Ext Problem - Additonal information Additional information: 52-year-old female presents emergency department for evaluation of acute on chronic right knee pain. She reports a history of severe tricompartmental arthritis and an x-ray completed in early January confirms this. She states that due to insurance issues she has had difficulty following up with an orthopedic surgeon. With her last January visit she received a short course of steroids which she found was helpful. She is a type II diabetic reports compliance with meds last blood sugars in the 120s. She is also chronic pain patient for which she receives oxycodone every month. She is requesting extra tablets of oxycodone today which I have declined No falls or trauma. No fevers. She typically ambulates with a walker. 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 : None Psych: Depression, Anxiety Musculoskeletal: Osteoarthritis, Fibromyalgia, Chronic back pain Derm: Other - Past Surgical History Past Surgical History: Yes General: Cholecystectomy Ortho: Arthroscopic surgery, Carpal Tunnel surgery HEENT: Rhinoplasty - Present Medications Home Medications: Ambulatory Orders Medication Instructions Recorded Confirmed Brexpiprazole [Rexulti] 1 mg PO DAILY 09/08/18 02/11/22 Rabeprazole Sodium [Aciphex] 40 mg ORAL DAILY 09/08/18 02/11/22 Sertraline HCl [Zoloft] 100 mg ORAL BID 09/08/18 02/11/22 Aspirin [Aspirin EC] 81 mg PO DAILY 12/04/20 02/11/22 Lisinopril [Zestril] 10 mg PO DAILY 12/04/20 02/11/22 metFORMIN [Glucophage] 500 mg PO DAILY 12/04/20 02/11/22 Albuterol Sulf [Ventolin Hfa 1 - 2 puffs INH Q4HR PRN 03/16/21 02/11/22 Inhaler] Alprazolam [Xanax] 1 mg PO TID 03/16/21 02/11/22 Furosemide [Lasix] 120 mg PO DAILY 03/16/21 02/11/22 Tiotropium [place] [Spiriva 1 puffs PO DAILY 03/16/21 02/11/22 Respimat] Ibuprofen [Motrin] 600 mg PO TID PRN #25 tab 12/02/21 02/11/22 Pantoprazole Sodium [Protonix] 40 mg PO DAILY #30 tab 02/01/22 02/11/22 Oxycodone HCl/Acetaminophen 1 tab PO 5XD 02/11/22 02/11/22 [Percocet 10-325 mg Tablet] Prochlorperazine Maleate 10 mg PO Q4HR PRN #20 tab 02/11/22 [Compazine] predniSONE [Deltasone] 40 mg PO DAILY 4 Days #8 tablet 02/25/22 - Allergies Allergies/Adverse Reactions: Allergies Allergy/AdvReac Type Severity Reaction Status Date / Time Egg Derived Allergy Emesis, Verified 02/25/22 14:26 stomach pain eucalyptus Allergy Anaphylaxis Verified 02/25/22 14:26 naproxen [From Aleve] Allergy Cramps Verified 02/25/22 14:26 Penicillins Allergy Anaphylaxis Verified 02/25/22 14:26 Sulfa (Sulfonamide Allergy Cramps Verified 02/25/22 14:26 Antibiotics) ketorolac [From Toradol] AdvReac Headache Verified 02/25/22 14:26 - Social History Does the pt smoke?: Yes Smoking Status: Current every day smoker Does the pt drink ETOH?: No Does the pt have substance abuse?: No - Immunizations Immunizations are current?: Yes - POLST Patient has POLST: No PD ED PE EXPANDED - General General: Alert, Other (Morbidly obese) - Extremities Extremities: Right knee (Full flexion and extension. No laxity with testing. Most of the tenderness elicited in the medial compartment. No obvious swelling erythema or ecchymosis. Difficulty bearing full weight.) Results - Vitals Vitals: Vital Signs - 24 hr 02/25/22 14:26 Temperature 37.3 C Heart Rate 95 Respiratory 18 Rate Blood Pressure 106/67 O2 Saturation 97 Oxygen O2 Source Room air PD MEDICAL DECISION MAKING - ED course Complexity details: considered differential, d/w patient ED course: 52-year-old type II diabetic presents emergency department valuation of acute on chronic right knee pain. Recent x-ray in January confirmed moderate tricompartmental arthritis. The patient is having difficulty establishing with an orthopedic surgeon. She is requesting extra doses of opiate narcotics which I have declined today. I am going to prescribe a 4-day burst of prednisone to help with pain. She was given 1 dose of oxycodone here in the emergency department. She is otherwise advised close follow-up with orthopedics. Will defer imaging given lack of falls or trauma and recent imaging confirming tricompartmental arthritis. No fevers or swelling suggestive of septic arthritis. Departure - Departure Disposition: Home, Self Care Clinical Impression: Arthritis of right knee Condition: Stable Record reviewed to determine appropriate education?: Yes Prescriptions: predniSONE [Deltasone] 40 mg PO DAILY 4 Days #8 tablet Comments: Rosa I did review the x-ray imaging from early January that confirms tricompartmental arthritis in your right knee. I am sending a prescription for 4 days of prednisone to the [facility] in [place]. Please fill this and begin taking. You may benefit from icing the knee. We will not prescribe new narcotics today in the emergency department. Please call your insurance provider to determine which orthopedics physician may be see you. If at any point you develop fevers, have knee swelling or redness then please return immediately to the ER for second evaluation.
[2022-02-25 17:05] VITALS: BP 105/82
== END 2022-02-25 16:20 | disposition home or self-care (01) ==
LOC: ED 14:05
DX: M17.11 Unilateral primary osteoarthritis, right knee (principal); G89.29 Other chronic pain; E11.9 Type 2 diabetes mellitus without complications; Z79.84 Long term (current) use of oral hypoglycemic drugs; F17.200 Nicotine dependence, unspecified, uncomplicated
CPT/HCPCS: 99283; A9270

== ENCOUNTER 2022-03-03 16:33 | Outpatient (CLI) | payer MEDICAID | END 2022-03-03 16:34 | disposition EMS.NT | LOC: EMS 16:33 | DX: Z03.89 Encounter for observation for other suspected diseases and conditions ruled out (principal) ==

== ENCOUNTER 2022-03-26 09:51 | Outpatient (CLI) | payer MEDICAID | END 2022-03-26 09:52 | disposition critical access hospital (66) | LOC: EMS 09:51 | DX: R21 Rash and other nonspecific skin eruption (principal); R10.31 Right lower quadrant pain; R10.32 Left lower quadrant pain; M32.9 Systemic lupus erythematosus, unspecified | CPT/HCPCS: A0425; A0429; A0999 ==

== ENCOUNTER 2022-03-30 14:46 | Emergency (ER) | payer MEDICAID ==
[2022-03-30 15:16] VITALS: BP 125/94
[2022-03-30] MEDS ORDERED: HYDROmorphone 1 MG/ML CARPUJECT IM STA (16:00)
--- NOTE | 2022-03-30 16:04 | ED Physician Documentation ---
PD HPI SKIN - Stated complaint Stated Complaint: STOMACH RASH - Chief complaint Chief Complaint: Wound - History obtained from History obtained from: Patient - Additional information Additional information: 52 yo female with multiple medical issues including DMII, psoriatic arthritis, lupus. Seen by my partner about 4 days ago for infected intertrigo. Given q3d fluconazole, steroids, pain meds. Not improving. No fevers. Review of Systems Constitutional: denies: Fever, Chills Respiratory: reports: Reviewed and negative GI: denies: Nausea, Vomiting, Diarrhea PD PAST MEDICAL HISTORY - Past Medical History Past Medical History: Yes Cardiovascular: None Respiratory: Asthma Neuro: Migraines Endocrine/Autoimmune: Type 2 diabetes, HyPOthyroidism GI: GERD, Cirrhosis DIANETIC COUNSELOR: None : None Psych: Depression, Anxiety Musculoskeletal: Osteoarthritis, Fibromyalgia, Chronic back pain Derm: Other - Past Surgical History Past Surgical History: Yes General: Cholecystectomy Ortho: Arthroscopic surgery, Carpal Tunnel surgery HEENT: Rhinoplasty - Present Medications Home Medications: Ambulatory Orders Medication Instructions Recorded Confirmed Brexpiprazole [Rexulti] 1 mg PO DAILY 09/08/18 02/11/22 Rabeprazole Sodium [Aciphex] 40 mg ORAL DAILY 09/08/18 02/11/22 Sertraline HCl [Zoloft] 100 mg ORAL BID 09/08/18 02/11/22 Aspirin [Aspirin EC] 81 mg PO DAILY 12/04/20 02/11/22 Lisinopril [Zestril] 10 mg PO DAILY 12/04/20 02/11/22 metFORMIN [Glucophage] 500 mg PO DAILY 12/04/20 02/11/22 Albuterol Sulf [Ventolin Hfa 1 - 2 puffs INH Q4HR PRN 03/16/21 02/11/22 Inhaler] Alprazolam [Xanax] 1 mg PO TID 03/16/21 02/11/22 Furosemide [Lasix] 120 mg PO DAILY 03/16/21 02/11/22 Tiotropium [place] [Spiriva 1 puffs PO DAILY 03/16/21 02/11/22 Respimat] Ibuprofen [Motrin] 600 mg PO TID PRN #25 tab 12/02/21 02/11/22 Pantoprazole Sodium [Protonix] 40 mg PO DAILY #30 tab 02/01/22 02/11/22 Oxycodone HCl/Acetaminophen 1 tab PO 5XD 02/11/22 02/11/22 [Percocet 10-325 mg Tablet] Prochlorperazine Maleate 10 mg PO Q4HR PRN #20 tab 02/11/22 [Compazine] predniSONE [Deltasone] 40 mg PO DAILY 4 Days #8 tablet 02/25/22 Fluconazole [Diflucan] 150 mg PO Q3D #3 tablet 03/26/22 Oxycodone HCl/Acetaminophen 1 each PO Q6H PRN #18 tablet 03/26/22 [Percocet 7.5-325 mg Tablet] cephALEXin [Keflex] 500 mg PO QID 5 Days #20 cap 03/26/22 dexAMETHasone [Decadron] 4 mg PO DAILY #5 tablet 03/26/22 Clotrimazole 1% Cream [Lotrimin 1% 10 gm TOP QID #500 gr 03/30/22 Cream] clindamycin HCL [Cleocin HCl] 300 mg PO QID #28 cap 03/30/22 - Allergies Allergies/Adverse Reactions: Allergies Allergy/AdvReac Type Severity Reaction Status Date / Time Egg Derived Allergy Emesis, Verified 03/30/22 15:16 stomach pain eucalyptus Allergy Anaphylaxis Verified 03/30/22 15:16 naproxen [From Aleve] Allergy Cramps Verified 03/30/22 15:16 Penicillins Allergy Anaphylaxis Verified 03/30/22 15:16 Sulfa (Sulfonamide Allergy Cramps Verified 03/30/22 15:16 Antibiotics) ketorolac [From Toradol] AdvReac Headache Verified 03/30/22 15:16 - Social History Does the pt smoke?: Yes Smoking Status: Current every day smoker Does the pt drink ETOH?: No Does the pt have substance abuse?: No - Immunizations Immunizations are current?: Yes - POLST Patient has POLST: No PD ED PE NORMAL - Vitals Vital signs reviewed: Yes - General General: Alert and oriented X 3, No acute distress - Abdomen Abdomen: Non tender - Derm Derm: Other (Severe denuded panncular intertrigo low abd wall with some purulence.) - Neuro Neuro: Alert and oriented X 3, Normal speech Results - Vitals Vitals: Vital Signs - 24 hr 03/30/22 15:12 Temperature 36.2 C L Heart Rate 94 Respiratory 14 Rate Blood Pressure 125/94 H O2 Saturation 98 Oxygen O2 Source Room air PD MEDICAL DECISION MAKING - ED course ED course: 52 female with infected intertrigo. Continue PO diflucan. Will add topical azole. Will change from keflex to clinda, cx today sent/pending. Departure - Departure Disposition: 01 Home, Self Care Clinical Impression: Intertrigo Condition: Good Record reviewed to determine appropriate education?: Yes Instructions: ED Candidiasis Cutaneous Prescriptions: clindamycin HCL [Cleocin HCl] 300 mg PO QID #28 cap Clotrimazole 1% Cream [Lotrimin 1% Cream] 10 gm TOP QID #500 gr Comments: You were seen today for infected intertrigo. I sent a wound culture, it will take 2-3 days to result, if an antibiotic change is necessary, we will call you. Practices aimed at minimizing moisture and friction in the involved area and reducing susceptibility to intertrigo are the mainstays of treatment. Typical beneficial practices include: ?Daily cleansing of intertriginous skin with a mild cleanser followed by drying of affected area with a wheelchair van driver on a cool setting ?Aeration of affected area when feasible ?Daily application of drying powders, such as powders composed of microporous cellulose ?Use of absorbent material or clothing, such as cotton or grimaldo wool, to separate skin in folds ?Application of barrier creams in areas that may come in contact with urine or feces ?Treatment of hyperhidrosis in the affected area ?Weight loss in persons who are overweight or obese ?Appropriate treatment of coexisting diabetes mellitus Followup with your primary tomorrow as scheduled.
== END 2022-03-30 16:34 | disposition home or self-care (01) ==
LOC: ED 14:46
DX: L30.4 Erythema intertrigo (principal); E11.9 Type 2 diabetes mellitus without complications; Z79.84 Long term (current) use of oral hypoglycemic drugs; F17.200 Nicotine dependence, unspecified, uncomplicated
CPT/HCPCS: 87070; 87077; 87205; 96372; 99282; 99283; J1170

== ENCOUNTER 2022-03-31 17:10 | Outpatient (CLI) | payer MEDICAID | END 2022-03-31 17:11 | disposition critical access hospital (66) | LOC: EMS 17:10 | DX: R21 Rash and other nonspecific skin eruption (principal); L98.9 Disorder of the skin and subcutaneous tissue, unspecified; R11.0 Nausea | CPT/HCPCS: A0425; A0427; A0999 ==

== ENCOUNTER 2022-03-31 17:25 | Emergency (ER) | payer MEDICAID ==
[2022-03-31 17:46] VITALS: BP 130/92
[2022-03-31] MEDS ORDERED: oxyCODONE 5 MG TABLET PO STA (18:08)
--- NOTE | 2022-03-31 18:11 | ED Physician Documentation ---
History of Present Illness - Stated complaint Stated Complaint: UNSTEADY/NAUSEA - Chief complaint Chief Complaint: Abd Pain - History obtained from History obtained from: Patient - History of Present Illness Timing: How many days ago (5) - Additonal information Additional information: 52-year-old female with history of rheumatoid arthritis, not on immunomodulat ors, [id number] diabetes presents by EMS from home for abdominal infection, "feeling weird", and failure to improve. Patient has been seen numerous times by dermatology and was recently here yesterday for the same complaint. Patient has a wound underneath her right breast and all across her abdomen. She states that she has been on 3 days of p.o. fluconazole, has been on nystatin powder, tried 2 to 3 days of Keflex, and has not seen improvement. Yesterday patient was seen and discharged on clindamycin with clotrimazole cream. Review of Systems Ten Systems: 10 systems reviewed and negative Constitutional: denies: Fever, Chills, Myalgias, Fatigue, Weight Loss, Sweats, Reviewed and negative, Other Eyes: denies: Loss of vision, Decreased vision, Photophobia, Discharge, Irritation, Reviewed and negative, Other Ears: denies: Loss of hearing, Ear pain, Drainage/discharge, Tinnitus/ringing, Foreign body, Reviewed and negative, Other Nose: denies: Rhinorrhea / runny nose, Congestion, Epistaxis, Sinus pressure / pain, Foreign Body, Reviewed and negative, Other Throat: denies: Dental pain / toothache, Oral lesions / sores, Sore throat, Swollen tonsils, Swallowed foreign body, Reviewed and negative, Other Cardiac: denies: Chest pain / pressure, Palpitations, Pedal edema, Calf pain, Reviewed and negative, Other PD PAST MEDICAL HISTORY - Past Medical History Cardiovascular: None Respiratory: Asthma Neuro: Migraines Endocrine/Autoimmune: Type 2 diabetes, HyPOthyroidism GI: GERD, Cirrhosis 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 Psych: Depression, Anxiety Musculoskeletal: Osteoarthritis, Fibromyalgia, Chronic back pain Derm: Other - Past Surgical History Past Surgical History: Yes General: Cholecystectomy Ortho: Arthroscopic surgery, Carpal Tunnel surgery HEENT: Rhinoplasty - Present Medications Home Medications: Ambulatory Orders Medication Instructions Recorded Confirmed Brexpiprazole [Rexulti] 1 mg PO DAILY 09/08/18 02/11/22 Rabeprazole Sodium [Aciphex] 40 mg ORAL DAILY 09/08/18 02/11/22 Sertraline HCl [Zoloft] 100 mg ORAL BID 09/08/18 02/11/22 Aspirin [Aspirin EC] 81 mg PO DAILY 12/04/20 02/11/22 Lisinopril [Zestril] 10 mg PO DAILY 12/04/20 02/11/22 metFORMIN [Glucophage] 500 mg PO DAILY 12/04/20 02/11/22 Albuterol Sulf [Ventolin Hfa 1 - 2 puffs INH Q4HR PRN 03/16/21 02/11/22 Inhaler] Alprazolam [Xanax] 1 mg PO TID 03/16/21 02/11/22 Furosemide [Lasix] 120 mg PO DAILY 03/16/21 02/11/22 Tiotropium [place] [Spiriva 1 puffs PO DAILY 03/16/21 02/11/22 Respimat] Ibuprofen [Motrin] 600 mg PO TID PRN #25 tab 12/02/21 02/11/22 Pantoprazole Sodium [Protonix] 40 mg PO DAILY #30 tab 02/01/22 02/11/22 Oxycodone HCl/Acetaminophen 1 tab PO 5XD 02/11/22 02/11/22 [Percocet 10-325 mg Tablet] Prochlorperazine Maleate 10 mg PO Q4HR PRN #20 tab 02/11/22 [Compazine] predniSONE [Deltasone] 40 mg PO DAILY 4 Days #8 tablet 02/25/22 Fluconazole [Diflucan] 150 mg PO Q3D #3 tablet 03/26/22 Oxycodone HCl/Acetaminophen 1 each PO Q6H PRN #18 tablet 03/26/22 [Percocet 7.5-325 mg Tablet] cephALEXin [Keflex] 500 mg PO QID 5 Days #20 cap 03/26/22 dexAMETHasone [Decadron] 4 mg PO DAILY #5 tablet 03/26/22 Clotrimazole 1% Cream [Lotrimin 1% 10 gm TOP QID #500 gr 03/30/22 Cream] Fluconazole [Diflucan] 1 tablet PO Q3D 1 Days #3 tablet 03/30/22 clindamycin HCL [Cleocin HCl] 300 mg PO QID #28 cap 03/30/22 Doxycycline Hyclate 100 mg PO BID #20 tab.sr 03/31/22 - Allergies Allergies/Adverse Reactions: Allergies Allergy/AdvReac Type Severity Reaction Status Date / Time Egg Derived Allergy Emesis, Verified 03/31/22 17:47 stomach pain eucalyptus Allergy Anaphylaxis Verified 03/31/22 17:47 naproxen [From Aleve] Allergy Cramps Verified 03/31/22 17:47 Penicillins Allergy Anaphylaxis Verified 03/31/22 17:47 Sulfa (Sulfonamide Allergy Cramps Verified 03/31/22 17:47 Antibiotics) ketorolac [From Toradol] AdvReac Headache Verified 03/31/22 17:47 - Social History Does the pt smoke?: Yes Smoking Status: Current every day smoker Does the pt drink ETOH?: No Does the pt have substance abuse?: No - Immunizations Immunizations are current?: Yes - POLST Patient has POLST: No PD ED PE NORMAL - General General: Alert and oriented X 3, No acute distress, Well developed/nourished, Other - HEENT HEENT: Atraumatic, PERRL, EOMI, Ears normal, Moist mucous membranes, Pharynx benign, Dentition benign, Other - Neck Neck: Supple, no meningeal sign, No bony TTP, No adenopathy, Thyroid normal, No JVD, No bruit, C-Spine cleared by NEXUS criteria, Other - Cardiac Cardiac: RRR, No murmur, No gallop, No rub, Strong equal pulses, Other - Respiratory Respiratory: No respiratory distress, Clear bilaterally, Other - Abdomen Abdomen: Normal bowel sounds, Soft, Non tender, Non distended, No organomegaly, Other - Female Female : Deferred - Back Back: No CVA TTP, No spinal TTP - Derm Derm: Other (erythematous rash on abdomen) - Neuro Neuro: Alert and oriented X 3, energy control officer 2-12 intact, No motor deficit, No sensory deficit, Normal speech, Other - Psych Psych: Normal mood, Normal affect, Other Results - Vitals Vitals: Vital Signs - 24 hr 03/31/22 17:42 Temperature 97.6 C H Heart Rate 90 Respiratory 14 Rate Blood Pressure 130/92 H O2 Saturation 97 Oxygen O2 Source Room air PD MEDICAL DECISION MAKING - ED course ED course: Patient presenting for continued abdominal wound without improvement. Culture obtained from yesterday showed preliminary growth of gram-negative bacilli and gram-negative cocci. Antibiogram reviewed, will start the patient on tetracycline. Patient was given antimicrobial wicking material to place underneath her breast and her pannus for improved control of her infection. Patient was counseled to keep the wound clean and dry to prevent worsening infection. Patient has an appointment set up with wound care in 2 weeks, she was highly encouraged to keep this appointment. Departure - Departure Disposition: Home, Self Care Clinical Impression: Skin rash Condition: Good Plan of Treatment: Stop taking the clindamycin. You may apply the wicking material to the underside of your abdomen and the underside of your right breast daily. Keep the area as clean and dry as possible. Take all of the doxycycline as prescribed. Make sure to keep your appointment with wound care as scheduled Instructions: Rash Skin Self Care Prescriptions: Doxycycline Hyclate 100 mg PO BID #20 tab.sr Discharge Date/Time: 03/31/22 18:55
[2022-03-31] MEDS ORDERED: ACETAMINOPHEN 325 MG TABLET PO STA (18:46)
== END 2022-03-31 18:55 | disposition home or self-care (01) ==
LOC: EDUNIT# → ED 17:25
DX: R21 Rash and other nonspecific skin eruption (principal); E11.9 Type 2 diabetes mellitus without complications
CPT/HCPCS: 99282; 99283; A9270

== ENCOUNTER 2022-04-16 18:12 | Outpatient (CLI) | payer MEDICAID | END 2022-04-16 18:13 | disposition critical access hospital (66) | LOC: EMS 18:12 | DX: R07.9 Chest pain, unspecified (principal); M25.512 Pain in left shoulder | CPT/HCPCS: A0425; A0427; A0999 ==

== ENCOUNTER 2022-04-16 18:26 | Emergency (ER) | payer MEDICAID ==
[2022-04-16 18:48] LABS: BASOPHILS # (AUTO) 0.1 10^3/uL (0.0-0.1); BASOPHILS % (AUTO) 0.6 %; EOSINOPHILS # (AUTO) 0.4 10^3/uL (0.0-0.7); EOSINOPHILS % (AUTO) 4.5 %; HCT - HEMATOCRIT 37.9 % (37.0-47.0); HGB - HEMOGLOBIN 12.9 g/dL (12.0-16.0); LYMPHOCYTES # (AUTO) 1.4 10^3/uL (1.5-3.5); LYMPHOCYTES % (AUTO) 18.5 %; MEAN CORPUSCULAR HEMOGLOBIN 33.6 pg (27.0-31.0); MEAN CORPUSCULAR VOLUME 98.7 fL (81.0-99.0); MEAN PLATELET VOLUME 9.5 fL (7.9-10.8); MONOCYTES # (AUTO) 0.3 10^3/uL (0.0-1.0); MONOCYTES % (AUTO) 4.2 %; NEUTROPHILS # (AUTO) 5.6 10^3/uL (1.5-6.6); NEUTROPHILS % (AUTO) 71.9 %; PLT - PLATELET COUNT 223 10^3/uL (130-450); RED BLOOD COUNT 3.84 10^6/uL (4.20-5.40); RED CELL DISTRIBUTION WIDTH 14.1 % (12.0-15.0); WHITE BLOOD COUNT 7.8 x10^3/uL (4.8-10.8)
[2022-04-16 19:07] LABS: ALBUMIN 3.3 g/dL (3.2-5.5); BILIRUBIN,TOTAL 0.2 mg/dL (0.2-1.0); CALCIUM 8.8 mg/dL (8.5-10.3); CREATININE 0.9 mg/dL (0.4-1.0); POTASSIUM 3.6 mmol/L (3.5-5.0); TOTAL PROTEIN 6.6 g/dL (6.7-8.2)
--- NOTE | 2022-04-16 19:10 | ED Physician Documentation ---
History of Present Illness - Stated complaint Stated Complaint: CHEST PX - Chief complaint Chief Complaint: Cardiac - Additonal information Additional information: 52-year-old female presents emergency department for evaluation of acute sharp chest pain that began about an hour and a half prior to arrival. She states that she thought she was having a panic attack but then she began having numbness and tingling in her left arm which she has never had before. She does have a history of hypertension is also active tobacco user. Patient did receive a dose of nitroglycerin and 325 of aspirin via EMS without change in symptoms. She has a significant PTSD and anxiety history. She also sees a provider at a pain management clinic and receives oxycodone. Denies any previous history of heart attack or stroke. Meds: Lasix, lisinopril, atorvastatin, Xanax, albuterol, Rexulti, Zoloft, OxyCodone Review of Systems Constitutional: denies: Fever, Chills Nose: reports: Reviewed and negative Throat: reports: Reviewed and negative Cardiac: reports: Chest pain / pressure, Pedal edema (Unchanged from baseline). 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 Psych: Depression, Anxiety Musculoskeletal: Osteoarthritis, Fibromyalgia, Chronic back pain Derm: Other - Past Surgical History Past Surgical History: Yes General: Cholecystectomy Ortho: Arthroscopic surgery, Carpal Tunnel surgery HEENT: Rhinoplasty - Present Medications Home Medications: Ambulatory Orders Medication Instructions Recorded Confirmed Brexpiprazole [Rexulti] 1 mg PO DAILY 09/08/18 02/11/22 Rabeprazole Sodium [Aciphex] 40 mg ORAL DAILY 09/08/18 02/11/22 Sertraline HCl [Zoloft] 100 mg ORAL BID 09/08/18 02/11/22 Aspirin [Aspirin EC] 81 mg PO DAILY 12/04/20 02/11/22 Lisinopril [Zestril] 10 mg PO DAILY 12/04/20 02/11/22 metFORMIN [Glucophage] 500 mg PO DAILY 12/04/20 02/11/22 Albuterol Sulf [Ventolin Hfa 1 - 2 puffs INH Q4HR PRN 03/16/21 02/11/22 Inhaler] Alprazolam [Xanax] 1 mg PO TID 03/16/21 02/11/22 Furosemide [Lasix] 120 mg PO DAILY 03/16/21 02/11/22 Tiotropium [place] [Spiriva 1 puffs PO DAILY 03/16/21 02/11/22 Respimat] Ibuprofen [Motrin] 600 mg PO TID PRN #25 tab 12/02/21 02/11/22 Pantoprazole Sodium [Protonix] 40 mg PO DAILY #30 tab 02/01/22 02/11/22 Oxycodone HCl/Acetaminophen 1 tab PO 5XD 02/11/22 02/11/22 [Percocet 10-325 mg Tablet] Prochlorperazine Maleate 10 mg PO Q4HR PRN #20 tab 02/11/22 [Compazine] predniSONE [Deltasone] 40 mg PO DAILY 4 Days #8 tablet 02/25/22 Fluconazole [Diflucan] 150 mg PO Q3D #3 tablet 03/26/22 Oxycodone HCl/Acetaminophen 1 each PO Q6H PRN #18 tablet 03/26/22 [Percocet 7.5-325 mg Tablet] cephALEXin [Keflex] 500 mg PO QID 5 Days #20 cap 03/26/22 dexAMETHasone [Decadron] 4 mg PO DAILY #5 tablet 03/26/22 Clotrimazole 1% Cream [Lotrimin 1% 10 gm TOP QID #500 gr 03/30/22 Cream] Fluconazole [Diflucan] 1 tablet PO Q3D 1 Days #3 tablet 03/30/22 clindamycin HCL [Cleocin HCl] 300 mg PO QID #28 cap 03/30/22 Doxycycline Hyclate 100 mg PO BID #20 tab.sr 03/31/22 - Allergies Allergies/Adverse Reactions: Allergies Allergy/AdvReac Type Severity Reaction Status Date / Time Egg Derived Allergy Emesis, Verified 03/31/22 17:47 stomach pain eucalyptus Allergy Anaphylaxis Verified 03/31/22 17:47 naproxen [From Aleve] Allergy Cramps Verified 03/31/22 17:47 Penicillins Allergy Anaphylaxis Verified 03/31/22 17:47 Sulfa (Sulfonamide Allergy Cramps Verified 03/31/22 17:47 Antibiotics) ketorolac [From Toradol] AdvReac Headache Verified 03/31/22 17:47 - Social History Does the pt smoke?: Yes Smoking Status: Current every day smoker Does the pt drink ETOH?: No Does the pt have substance abuse?: No - Immunizations Immunizations are current?: Yes - POLST Patient has POLST: No PD ED PE NORMAL - General General: Alert and oriented X 3, Well developed/nourished (Morbidly obese), Other (Poor hygiene). 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 No: Prolonged QT QRS: Low voltage Ischemia: Normal ST segments Compare to prior EKG: Unchanged from prior EKG Computer interpretation: Agree with computer - Labs Labs: Laboratory Tests 04/16/22 04/16/22 04/16/22 18:44 18:44 18:44 WBC 7.8 RBC 3.84 L Hgb 12.9 Hct 37.9 MCV 98.7 MCH 33.6 H MCHC 34.0 RDW 14.1 Plt Count 223 MPV 9.5 Neut # (Auto) 5.6 Lymph # (Auto) 1.4 L [place] # (Auto) 0.3 Eos # (Auto) 0.4 Baso # (Auto) 0.1 Absolute Nucleated RBC 0.00 Nucleated RBC % 0.0 Sodium 135 Potassium 3.6 Chloride 99 L Carbon Dioxide 27 Anion Gap 9.0 BUN 7 Creatinine 0.9 Estimated GFR (MDRD) 66 L Glucose 151 H Calcium 8.8 Total Bilirubin 0.2 AST 17 ALT 20 Alkaline Phosphatase 110 Troponin I High Sens 3.5 B-Natriuretic Peptide Total Protein 6.6 L Albumin 3.3 Globulin 3.3 Albumin/Globulin Ratio 1.0 Lipase 28 04/16/22 18:44 WBC RBC Hgb Hct MCV MCH MCHC RDW Plt Count MPV Neut # (Auto) Lymph # (Auto) [place] # (Auto) Eos # (Auto) Baso # (Auto) Absolute Nucleated RBC Nucleated RBC % Sodium Potassium Chloride Carbon Dioxide Anion Gap BUN Creatinine Estimated GFR (MDRD) Glucose Calcium Total Bilirubin AST ALT Alkaline Phosphatase Troponin I High Sens B-Natriuretic Peptide 86 Total Protein Albumin Globulin Albumin/Globulin Ratio Lipase - Rads (name of study) cxr Radiology: Final report received (No no acute cardiopulmonary pathology) PD MEDICAL DECISION MAKING - ED course Complexity details: reviewed results, re-evaluated patient, considered differential, d/w patient ED course: 52-year-old female presents emergency department for evaluation of acute sharp left-sided chest pain with radiation to her arm. She does have a history of panic and anxiety but denies that she is ever had pain associated with this. She does have a history of obesity as well as hypertension and tobacco use. She is PERC negative. Screening EKG is nonischemic. Screening labs are essentially unremarkable. High-sensitivity troponin and BNP are negative. Her chest x-ray is without acute focal findings. Patient was recently treated for a skin infection which subsequently grew H. influenzae as well as staph epidermis She has been successfully treated with doxycycline. Given the patient's age and risk factors for coronary artery disease she is recommended close follow-up with her primary care provider as an outpatient to obtain outpatient referral for echocardiogram and stress test. Emergent return precautions were discussed for worsening symptoms. Departure - Departure Disposition: 01 Home, Self Care Clinical Impression: Chest pain Qualifiers: Chest pain type: unspecified Qualified Code(s): R07.9 - Chest pain, unspecified Condition: Stable Record reviewed to determine appropriate education?: Yes Instructions: ED Chest Pain Atypical Unkn Cause Comments: Rosa sharma are seen today in the emergency department because you developed sharp chest pain that radiated to your left arm. Your screening EKG does not show any signs of a heart attack. Your chest x-ray is normal. There is no pneumonia. Your screening labs including your blood count, and electrolytes as well as other markers for heart attack and heart failure are all essentially normal. It is not clear what the cause of the chest pain is today though given your age, your history of obesity and high blood pressure you would benefit from referral to a party host/hostess as an outpatient for a stress test or echocardiogram. No new medications need to be prescribed today. You can continue your other routine medications as you would already take them. If you develop fevers, have any fainting episodes, severe swelling of your legs please return to the ER for a second evaluation.
--- OUTSIDE RECORDS SUMMARY | 2022-04-16 19:10 | EXTERNAL MEDICAL SUMMARY RPT | Continuity of Care Document ---
:1970 Author Organization [facility] Address [address] [place] [address] Phone Allergies and Intolerances date description facility type (no date) Penicillins [facility] (unknown) (no date) Sulfa (Sulfonamide Antibiotics) [facility] (unknown) (no date) cedarwood [facility] (unknown) (no date) dipyridamole [facility] (unknown) (no date) eucalyptus [facility] (unknown) (no date) ketorolac [facility] (unknown) (no date) naproxen [facility] (unknown) (no date) pseudoephedrine [facility] (unknown) Encounters No information. Functional Status No information. Immunizations No information. Medications date description facility 0000 Acetaminophen 325 MG / Hydrocodone Is [facility] Bitartrate 5 MG Oral Tablet Problems No information. Procedures date description facility [id number] General Physician [facility] Results/Labs test date author facility value unit interpret ation Result panel 1 (unknown) (no (unknown) (unknown) (no value) (units (unk nown) date) unknown) (unknown) (no (unknown) (unknown) [address] [place] [address] (units (unknown) date) unknown) (unknown) (no (unknown) (unknown) [place], [place] (units ( unknown) date) [id number] unknown) (unknown) (no (unknown) (unknown) [facility] (units (unknown) date) unknown) (unknown) (no (unknown) (unknown) Signed (units (unkno wn) date) unknown) (unknown) (no (unknown) (unknown) XRay Report (units (un known) date) unknown) (unknown) (no (unknown) (unknown) (no value) (units (unk nown) date) unknown) (unknown) (no (unknown) (unknown) 03/03/22 (units (unkno wn) date) unknown) (unknown) (no (unknown) (unknown) 1. No fracture (units (unknown) date) or significant unknown) joint effusion. (unknown) (no (unknown) (unknown) 2. Moderate (units (un known) date) tricompartment unknown) osteoarthritic change. (unknown) (no (unknown) (unknown) Approved by: (units (u nknown) date) Letha Wolff unknown) Artemio on 03/03/2022 at 18:23 (unknown) (no (unknown) (unknown) Approved by: (units (u nknown) date) Letha Wolff unknown) Artemio on 03/03/2022 at 19:05 (unknown) (no (unknown) (unknown) Bones: No (units (unk nown) date) fractures or unknown) dislocations. Moderate tricompartment joint space loss (unknown) (no (unknown) (unknown) Bones: No (units (unk nown) date) fractures or unknown) dislocations. No suspicious bony lesions. Visualized (unknown) (no (unknown) (unknown) COMPARISON: (units (un known) date) [facility], unknown) CR, XR SHOULDER RT MIN 2V, 12/12/2019, 14:16. (unknown) (no (unknown) (unknown) COMPARISON: (units (un known) date) None. unknown) (unknown) (no (unknown) (unknown) Dictated by: (units (u nknown) date) lindsey Husain) Artemio on 03/03/2022 at 18:22 (unknown) (no (unknown) (unknown) Dictated by: (units (u nknown) date) lindsey Husain) Artemio on 03/03/2022 at 19:05 (unknown) (no (unknown) (unknown) FINDINGS: (units (unkn own) date) unknown) (unknown) (no (unknown) (unknown) IMPRESSION: (units (un known) date) unknown) (unknown) (no (unknown) (unknown) IMPRESSION: (units (un known) date) Intact left unknown) shoulder. (unknown) (no (unknown) (unknown) INDICATIONS: (units (u nknown) date) fall unknown) (unknown) (no (unknown) (unknown) Soft tissues: (units ( unknown) date) No joint unknown) effusion. No suspicious soft tissue calcifications. (unknown) (no (unknown) (unknown) Soft tissues: (units ( unknown) date) No suspicious unknown) soft tissue calcifications. (unknown) (no (unknown) (unknown) TECHNIQUE: (units (unk nown) date) Three views of unknown) the knee were acquired. (unknown) (no (unknown) (unknown) TECHNIQUE: (units (unk nown) date) Three views of unknown) the shoulder were acquired. (unknown) (no (unknown) (unknown) appear intact. (units (unknown) date) unknown) (unknown) (no (unknown) (unknown) compartment. No (units (unknown) date) suspicious bony unknown) lesions. (unknown) (no (unknown) (unknown) moderately (units (unk nown) date) prominent unknown) marginal spur formation, particularly in the (unknown) (no (unknown) (unknown) [id number] (units (unkno wn) date) unknown) (unknown) (no (unknown) (unknown) Accession (units (unkn own) date) Number: unknown) [id number] (unknown) (no (unknown) (unknown) Accession (units (unkn own) date) Number: unknown) [id number] (unknown) (no (unknown) (unknown) Age/Sex: 52 / F (units (unknown) date) Date of unknown) Service: (unknown) (no (unknown) (unknown) : 1970 (units (unknown) date) Acct:[id number] unknown) (unknown) (no (unknown) (unknown) Loc: ED (units (unkno wn) date) unknown) (unknown) (no (unknown) (unknown) Ordering (units (unkno wn) date) Provider: unknown) Andree Donald D.O. (unknown) (no (unknown) (unknown) PROCEDURE: XR (units (unknown) date) KNEE RT 3V unknown) (unknown) (no (unknown) (unknown) PROCEDURE: XR (units (unknown) date) SHOULDER LT MIN unknown) 2V (unknown) (no (unknown) (unknown) Patient: (units (unkno wn) date) Rosa Rice L unknown) MR#: [id number] (unknown) (no (unknown) (unknown) Procedure: XR (units ( unknown) date) knee RT 3V unknown) (unknown) (no (unknown) (unknown) Procedure: XR (units ( unknown) date) shoulder LT min unknown) 2V (unknown) (no (unknown) (unknown) patellofemoral (units (unknown) date) unknown) (unknown) (no (unknown) (unknown) ribs (units (unkno wn) date) unknown) (unknown) (no (unknown) (unknown) with (units (unkno wn) date) unknown) Result panel 2 (unknown) (no (unknown) (unknown) (no value) (units (unk nown) date) unknown) (unknown) (no (unknown) (unknown) Radiologist's (units ( unknown) date) Impression: unknown) (unknown) (no (unknown) (unknown) Date of Service: (units (unknown) date) 03/03/22 unknown) (unknown) (no (unknown) (unknown) (no value) (units (unk nown) date) unknown) (unknown) (no (unknown) (unknown) 1 cap INHALATION (units (unknown) date) DAILY 0RF unknown) (unknown) (no (unknown) (unknown) 10 mg PO DAILY (units (unknown) date) 0RF unknown) (unknown) (no (unknown) (unknown) 2 mg PO DAILY 0RF (units (unknown) date) unknown) (unknown) (no (unknown) (unknown) 2 puff INHALATION (units (unknown) date) Q4-6H PRN (Reason: unknown) Shortness Of Breath) 0RF (unknown) (no (unknown) (unknown) 20 mg PO BID 0RF (units (unknown) date) unknown) (unknown) (no (unknown) (unknown) 25 mg PO DAILY (units (unknown) date) 0RF unknown) (unknown) (no (unknown) (unknown) 3 mg PO DAILY 0RF (units (unknown) date) unknown) (unknown) (no (unknown) (unknown) 40 mg PO DAILY (units (unknown) date) 0RF unknown) (unknown) (no (unknown) (unknown) 5 mg PO Q3HR PRN (units (unknown) date) (Reason: Pain, unknown) Moderate (4-6)) Qty: 40 0RF (unknown) (no (unknown) (unknown) 5 mg PO Q4HR PRN (units (unknown) date) (Reason: Pain, unknown) Moderate (4-6)) Qty: 30 0RF (unknown) (no (unknown) (unknown) 500 mg PO BID 0RF (units (unknown) date) unknown) (unknown) (no (unknown) (unknown) Allergies (units (unkn own) date) unknown) (unknown) (no (unknown) (unknown) Breathing (units (unkn own) date) unknown) (unknown) (no (unknown) (unknown) ED Orders (units (unkn own) date) unknown) (unknown) (no (unknown) (unknown) Emergency Report (units (unknown) date) unknown) (unknown) (no (unknown) (unknown) Home Medications (units (unknown) date) unknown) (unknown) (no (unknown) (unknown) [facility] (units (unknown) date) [address] unknown) [place] [address] (unknown) (no (unknown) (unknown) Pain (units (unkno wn) date) unknown) (unknown) (no (unknown) (unknown) Previous Rx's (units ( unknown) date) unknown) (unknown) (no (unknown) (unknown) Vital Signs - 8 (units (unknown) date) hr unknown) (unknown) (no (unknown) (unknown) (no value) (units (unk nown) date) unknown) (unknown) (no (unknown) (unknown) AcipHex Sprinkle (units (unknown) date) 5 mg Capsule, unknown) Delayed Rel Sprinkle (unknown) (no (unknown) (unknown) Rexulti 2 mg (units (u nknown) date) Tablet unknown) (unknown) (no (unknown) (unknown) Spiriva with (units (u nknown) date) HandiHaler 18 mcg unknown) Capsule, W/Inhalation Device (unknown) (no (unknown) (unknown) albuterol sulfate (units (unknown) date) 90 mcg/actuation unknown) Hfa Aerosol Inhaler (unknown) (no (unknown) (unknown) alprazolam [Xanax (units (unknown) date) XR] 3 mg Tablet unknown) Extended Release 24 Hr (unknown) (no (unknown) (unknown) furosemide (units (unk nown) date) [Lasix] 40 mg unknown) Tablet (unknown) (no (unknown) (unknown) lisinopril 10 mg (units (unknown) date) Tablet unknown) (unknown) (no (unknown) (unknown) metformin 500 mg (units (unknown) date) Tablet unknown) (unknown) (no (unknown) (unknown) oxycodone 5 mg (units (unknown) date) Tablet unknown) (unknown) (no (unknown) (unknown) sertraline (units (unk nown) date) [Zoloft] 25 mg unknown) Tablet (unknown) (no (unknown) (unknown) 03/03/22 (units (unkno wn) date) unknown) (unknown) (no (unknown) (unknown) Medication (units (unk nown) date) Instructions unknown) Recorded (unknown) (no (unknown) (unknown) Medication (units (unk nown) date) Instructions unknown) Recorded Confirmed (unknown) (no (unknown) (unknown) [id number] (units (unkno wn) date) unknown) (unknown) (no (unknown) (unknown) 03/03/22 17:43 (units (unknown) date) unknown) (unknown) (no (unknown) (unknown) 03/03/22 17:44 (units (unknown) date) unknown) (unknown) (no (unknown) (unknown) 1. No fracture or (units (unknown) date) significant joint unknown) effusion. (unknown) (no (unknown) (unknown) 17:40 03/03/22 (units (unknown) date) unknown) (unknown) (no (unknown) (unknown) 2. Moderate (units (un known) date) tricompartment unknown) osteoarthritic change.? (unknown) (no (unknown) (unknown) 20:43 (units (unkno wn) date) unknown) (unknown) (no (unknown) (unknown) ? (units (unkno wn) date) unknown) (unknown) (no (unknown) (unknown) Age/Sex: 52 / F (units (unknown) date) unknown) (unknown) (no (unknown) (unknown) Allergy/AdvReac (units (unknown) date) Type Severity unknown) Reaction Status Date / Time (unknown) (no (unknown) (unknown) Antibiotics) (units (u nknown) date) unknown) (unknown) (no (unknown) (unknown) Asthma (units (unkno wn) date) unknown) (unknown) (no (unknown) (unknown) Blood Pressure (units (unknown) date) 140/74 03/03/22 unknown) 17:40 (unknown) (no (unknown) (unknown) Blood Pressure (units (unknown) date) 140/74 121/64 unknown) (unknown) (no (unknown) (unknown) Bones:? No (units (unk nown) date) fractures or unknown) dislocations.? Moderate tricompartment joint space loss (unknown) (no (unknown) (unknown) Bones:? No (units (unk nown) date) fractures or unknown) dislocations.? No suspicious bony lesions.? Visualized (unknown) (no (unknown) (unknown) Chief Complaint: (units (unknown) date) Fall unknown) (unknown) (no (unknown) (unknown) Chronic anemia (units (unknown) date) unknown) (unknown) (no (unknown) (unknown) Course (units (unkno wn) date) unknown) (unknown) (no (unknown) (unknown) : 1970 (units (unknown) date) Acct:[id number] unknown) (unknown) (no (unknown) (unknown) Departure (units (unkn own) date) unknown) (unknown) (no (unknown) (unknown) Diabetes (units (unkno wn) date) mellitus, type 2 unknown) (unknown) (no (unknown) (unknown) Dictated by: (units (u nknown) date) jaime Husain M.D. on 03/03/2022 at 18:22? ?? (unknown) (no (unknown) (unknown) Dictated by: (units (u nknown) date) jaime Husain M.D. on 03/03/2022 at 19:05? ?? (unknown) (no (unknown) (unknown) Discharge Plan (units (unknown) date) unknown) (unknown) (no (unknown) (unknown) Nikolai Gray, (units (unknown) date) [Primary Care unknown) Provider] - (unknown) (no (unknown) (unknown) ER Physician: (units ( unknown) date) LaurSabine gamble unknown) (unknown) (no (unknown) (unknown) Exam (units (unkno wn) date) unknown) (unknown) (no (unknown) (unknown) FINDINGS:? (units (unk nown) date) unknown) (unknown) (no (unknown) (unknown) Fibromyalgia (units (u nknown) date) unknown) (unknown) (no (unknown) (unknown) General (units (unkno wn) date) unknown) (unknown) (no (unknown) (unknown) HPI - Fall (units (unk nown) date) unknown) (unknown) (no (unknown) (unknown) History of (units (unk nown) date) arthroscopy of unknown) right shoulder (03/08/21) (unknown) (no (unknown) (unknown) History of carpal (units (unknown) date) tunnel release unknown) (unknown) (no (unknown) (unknown) Hx of abdominal (units (unknown) date) surgery unknown) (unknown) (no (unknown) (unknown) Hx of (units (unkno wn) date) arthroscopic knee unknown) surgery (unknown) (no (unknown) (unknown) Hx of (units (unkno wn) date) cholecystectomy unknown) (unknown) (no (unknown) (unknown) Hx of foot (units (unk nown) date) surgery unknown) (unknown) (no (unknown) (unknown) Hx of lumbosacral (units (unknown) date) spine surgery unknown) (unknown) (no (unknown) (unknown) IMPRESSION:? (units (u nknown) date) unknown) (unknown) (no (unknown) (unknown) IMPRESSION:? (units (u nknown) date) Intact left unknown) shoulder. (unknown) (no (unknown) (unknown) Imaging Data (units (u nknown) date) unknown) (unknown) (no (unknown) (unknown) Initial Vital (units ( unknown) date) Signs unknown) (unknown) (no (unknown) (unknown) Initial Vital (units ( unknown) date) Signs: unknown) (unknown) (no (unknown) (unknown) Lupus (units (unkno wn) date) unknown) (unknown) (no (unknown) (unknown) MDM - Fall (units (unk nown) date) unknown) (unknown) (no (unknown) (unknown) Medical History (units (unknown) date) (Updated 04/02/21 unknown) @ 00:00 by ) (unknown) (no (unknown) (unknown) Mode of arrival: (units (unknown) date) Wheelchair unknown) (unknown) (no (unknown) (unknown) No Action (units (unkn own) date) unknown) (unknown) (no (unknown) (unknown) Obesity, morbid, (units (unknown) date) BMI 50 or higher unknown) (unknown) (no (unknown) (unknown) Ordered: (units (unkno wn) date) unknown) (unknown) (no (unknown) (unknown) Orders (units (unkno wn) date) unknown) (unknown) (no (unknown) (unknown) Patient History (units (unknown) date) unknown) (unknown) (no (unknown) (unknown) Patient: (units (unkno wn) date) Rosa Rice unknown) MR#: [id number] (unknown) (no (unknown) (unknown) Penicillins (units (un known) date) Allergy Severe unknown) Difficulty Verified 03/03/22 17:40 (unknown) (no (unknown) (unknown) Prescriptions: (units (unknown) date) unknown) (unknown) (no (unknown) (unknown) Pulse Oximetry (units (unknown) date) 98 03/03/22 unknown) 17:40 (unknown) (no (unknown) (unknown) Pulse Oximetry 98 (units (unknown) date) 96 unknown) (unknown) (no (unknown) (unknown) Pulse Rate 94 H (units (unknown) date) 03/03/22 17:40 unknown) (unknown) (no (unknown) (unknown) Pulse Rate 94 H (units (unknown) date) 80 unknown) (unknown) (no (unknown) (unknown) Referrals: (units (unk nown) date) unknown) (unknown) (no (unknown) (unknown) Related Data (units (u nknown) date) unknown) (unknown) (no (unknown) (unknown) Respiratory Rate (units (unknown) date) 16 03/03/22 unknown) 17:40 (unknown) (no (unknown) (unknown) Respiratory Rate (units (unknown) date) 16 19 unknown) (unknown) (no (unknown) (unknown) Signed By: (units (unk nown) date) unknown) (unknown) (no (unknown) (unknown) Smoking Status: (units (unknown) date) Current every day unknown) smoker (unknown) (no (unknown) (unknown) Smoking Status: (units (unknown) date) Current every day unknown) smoker (unknown) (no (unknown) (unknown) Social History (units (unknown) date) (Reviewed 03/18/21 unknown) @ 10:22 by Bruce Levy DO) (unknown) (no (unknown) (unknown) Soft tissues:? No (units (unknown) date) joint effusion.? unknown) No suspicious soft tissue calcifications.? (unknown) (no (unknown) (unknown) Soft tissues:? No (units (unknown) date) suspicious soft unknown) tissue calcifications.? (unknown) (no (unknown) (unknown) Source: patient (units (unknown) date) unknown) (unknown) (no (unknown) (unknown) Stated Complaint: (units (unknown) date) fall, left knee unknown) pain, rt shoulder pain (unknown) (no (unknown) (unknown) Substance Use (units ( unknown) date) Type: does not use unknown) (unknown) (no (unknown) (unknown) Sulfa (units (unkno wn) date) (Sulfonamide unknown) AdvReac Intermediate Joint Pain Verified 03/03/22 17:40 (unknown) (no (unknown) (unknown) Surgical History (units (unknown) date) (Updated 11/02/21 unknown) @ 12:16 by Heather Lamb RN) (unknown) (no (unknown) (unknown) Temperature 96.0 (units (unknown) date) F L 03/03/22 unknown) 17:40 (unknown) (no (unknown) (unknown) Temperature 96.0 (units (unknown) date) F L unknown) (unknown) (no (unknown) (unknown) Time Seen by (units (u nknown) date) Provider: 03/03/22 unknown) 21:12 (unknown) (no (unknown) (unknown) Vital Signs (units (un known) date) unknown) (unknown) (no (unknown) (unknown) Vital signs: (units (u nknown) date) unknown) (unknown) (no (unknown) (unknown) X-ray knee: (units (un known) date) unknown) (unknown) (no (unknown) (unknown) X-ray shoulder: (units (unknown) date) unknown) (unknown) (no (unknown) (unknown) XR knee RT 3V (units ( unknown) date) Stat unknown) (unknown) (no (unknown) (unknown) XR shoulder LT (units (unknown) date) min 2V Stat unknown) (unknown) (no (unknown) (unknown) aerosol inhaler (units (unknown) date) unknown) (unknown) (no (unknown) (unknown) albuterol sulfate (units (unknown) date) 90 mcg/actuation 2 unknown) puff INHALATION Q4-6H PRN 03/05/21 11/03/21 (unknown) (no (unknown) (unknown) alcohol intake (units (unknown) date) frequency: unknown) holidays/special occasions only (unknown) (no (unknown) (unknown) alcohol intake: (units (unknown) date) current unknown) (unknown) (no (unknown) (unknown) alprazolam 3 mg (units (unknown) date) tablet,extended 3 unknown) mg PO DAILY 03/05/21 11/03/21 (unknown) (no (unknown) (unknown) appear intact.? (units (unknown) date) unknown) (unknown) (no (unknown) (unknown) brexpiprazole 2 (units (unknown) date) mg tablet unknown) (Rexulti) 2 mg PO DAILY 03/05/21 11/03/21 (unknown) (no (unknown) (unknown) cedarwood Allergy (units (unknown) date) Severe Difficulty unknown) Verified 03/03/22 17:40 (unknown) (no (unknown) (unknown) compartment.? No (units (unknown) date) suspicious bony unknown) lesions.? (unknown) (no (unknown) (unknown) dipyridamole (units (u nknown) date) AdvReac unknown) Intermediate Joint Pain Verified 03/03/22 17:40 (unknown) (no (unknown) (unknown) eggshell membrane (units (unknown) date) Allergy unknown) Intermediate Abdominal Uncoded 03/08/21 07:16 (unknown) (no (unknown) (unknown) eucalyptus (units (unk nown) date) Allergy Severe unknown) Difficulty Verified 03/03/22 17:40 (unknown) (no (unknown) (unknown) furosemide 40 mg (units (unknown) date) tablet (Lasix) 40 unknown) mg PO DAILY 03/05/21 11/03/21 (unknown) (no (unknown) (unknown) household (units (unkn own) date) members: family unknown) (unknown) (no (unknown) (unknown) ketorolac [From (units (unknown) date) Toradol] Allergy unknown) Verified 03/03/22 17:40 (unknown) (no (unknown) (unknown) lisinopril 10 mg (units (unknown) date) tablet 10 mg PO unknown) DAILY 03/05/21 11/03/21 (unknown) (no (unknown) (unknown) metformin 500 mg (units (unknown) date) tablet 500 mg PO unknown) BID 03/05/21 11/03/21 (unknown) (no (unknown) (unknown) moderately (units (unkn own) date) prominent marginal unknown) spur formation, particularly in the patellofemoral (unknown) (no (unknown) (unknown) naproxen AdvReac (units (unknown) date) Intermediate Joint unknown) Pain Verified 03/03/22 17:40 (unknown) (no (unknown) (unknown) oxycodone 5 mg (units (unknown) date) tablet 5 mg PO unknown) Q3HR PRN #40 tab 03/08/21 (unknown) (no (unknown) (unknown) oxycodone 5 mg (units (unknown) date) tablet 5 mg PO unknown) Q4HR PRN #30 tab 11/03/21 (unknown) (no (unknown) (unknown) pseudoephedrine (units (unknown) date) AdvReac unknown) Intermediate Joint Pain Verified 03/03/22 17:40 (unknown) (no (unknown) (unknown) rabeprazole 5 mg (units (unknown) date) capsule,delayed 20 unknown) mg PO BID 03/05/21 11/03/21 (unknown) (no (unknown) (unknown) release 24 hr (units ( unknown) date) (Xanax XR) unknown) (unknown) (no (unknown) (unknown) release sprinkle (units (unknown) date) (AcipHex Sprinkle) unknown) (unknown) (no (unknown) (unknown) ribs (units (unkno wn) date) unknown) (unknown) (no (unknown) (unknown) sertraline 25 mg (units (unknown) date) tablet (Zoloft) 25 unknown) mg PO DAILY 03/05/21 11/03/21 (unknown) (no (unknown) (unknown) tiotropium (units (unk nown) date) bromide 18 mcg unknown) capsule 1 cap INHALATION DAILY 03/05/21 11/03/21 (unknown) (no (unknown) (unknown) tobacco type: (units ( unknown) date) cigarettes unknown) (unknown) (no (unknown) (unknown) with (units (unkno wn) date) unknown) (unknown) (no (unknown) (unknown) with HandiHaler) (units (unknown) date) unknown) (unknown) (no (unknown) (unknown) with inhalation (units (unknown) date) device (Spiriva unknown) Result panel 3 (unknown) (no (unknown) (unknown) (no value) (units (unk nown) date) unknown) (unknown) (no (unknown) (unknown) Radiologist's (units ( unknown) date) Impression: unknown) (unknown) (no (unknown) (unknown) Date of Service: (units (unknown) date) 03/03/22 unknown) (unknown) (no (unknown) (unknown) (no value) (units (unk nown) date) unknown) (unknown) (no (unknown) (unknown) <Electronically (units (unknown) date) signed by Sabine Fernandez unknown) MD Garrick> (unknown) (no (unknown) (unknown) 03/03/222137 (units ( unknown) date) unknown) (unknown) (no (unknown) (unknown) 1 cap INHALATION (units (unknown) date) DAILY 0RF unknown) (unknown) (no (unknown) (unknown) 1 tab PO .q 4h (units (unknown) date) PRN (Reason: pain) unknown) Qty: 14 0RF (unknown) (no (unknown) (unknown) 10 mg PO DAILY (units (unknown) date) 0RF unknown) (unknown) (no (unknown) (unknown) 2 mg PO DAILY 0RF (units (unknown) date) unknown) (unknown) (no (unknown) (unknown) 2 puff INHALATION (units (unknown) date) Q4-6H PRN (Reason: unknown) Shortness Of Breath) 0RF (unknown) (no (unknown) (unknown) 20 mg PO BID 0RF (units (unknown) date) unknown) (unknown) (no (unknown) (unknown) 25 mg PO DAILY (units (unknown) date) 0RF unknown) (unknown) (no (unknown) (unknown) 3 mg PO DAILY 0RF (units (unknown) date) unknown) (unknown) (no (unknown) (unknown) 40 mg PO DAILY (units (unknown) date) 0RF unknown) (unknown) (no (unknown) (unknown) 5 mg PO Q3HR PRN (units (unknown) date) (Reason: Pain, unknown) Moderate (4-6)) Qty: 40 0RF (unknown) (no (unknown) (unknown) 5 mg PO Q4HR PRN (units (unknown) date) (Reason: Pain, unknown) Moderate (4-6)) Qty: 30 0RF (unknown) (no (unknown) (unknown) 500 mg PO BID 0RF (units (unknown) date) unknown) (unknown) (no (unknown) (unknown) Allergies (units (unkn own) date) unknown) (unknown) (no (unknown) (unknown) Breathing (units (unkn own) date) unknown) (unknown) (no (unknown) (unknown) ED Orders (units (unkn own) date) unknown) (unknown) (no (unknown) (unknown) Emergency Report (units (unknown) date) unknown) (unknown) (no (unknown) (unknown) Home Medications (units (unknown) date) unknown) (unknown) (no (unknown) (unknown) [facility] (units (unknown) date) [address] unknown) [place] [address] (unknown) (no (unknown) (unknown) Pain (units (unkno wn) date) unknown) (unknown) (no (unknown) (unknown) Previous Rx's (units ( unknown) date) unknown) (unknown) (no (unknown) (unknown) Vital Signs - 8 (units (unknown) date) hr unknown) (unknown) (no (unknown) (unknown) (no value) (units (unk nown) date) unknown) (unknown) (no (unknown) (unknown) AcipHex Sprinkle (units (unknown) date) 5 mg Capsule, unknown) Delayed Rel Sprinkle (unknown) (no (unknown) (unknown) Rexulti 2 mg (units (u nknown) date) Tablet unknown) (unknown) (no (unknown) (unknown) Spiriva with (units (u nknown) date) HandiHaler 18 mcg unknown) Capsule, W/Inhalation Device (unknown) (no (unknown) (unknown) albuterol sulfate (units (unknown) date) 90 mcg/actuation unknown) Hfa Aerosol Inhaler (unknown) (no (unknown) (unknown) alprazolam [Xanax (units (unknown) date) XR] 3 mg Tablet unknown) Extended Release 24 Hr (unknown) (no (unknown) (unknown) furosemide (units (unk nown) date) [Lasix] 40 mg unknown) Tablet (unknown) (no (unknown) (unknown) hydrocodone-aceta (units (unknown) date) minophen 5-325 mg unknown) tablet (unknown) (no (unknown) (unknown) lisinopril 10 mg (units (unknown) date) Tablet unknown) (unknown) (no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
--- NOTE | 2022-04-16 19:12 | XRAY Report ---
PROCEDURE: Chest 1 View X-Ray INDICATIONS: Chest Pain TECHNIQUE: One view of the chest was acquired. COMPARISON: 08/04/2019 FINDINGS: Surgical changes and devices: None. Lungs and pleura: No pleural effusions or pneumothorax. Lungs are clear. Mediastinum: Mediastinal contours appear normal. Heart size is normal. Bones and chest wall: No suspicious bony lesions. Overlying soft tissues appear unremarkable. IMPRESSION: No acute cardiopulmonary pathology. Reviewed by: Lewis Lima MD on 04/16/2022 7:11 PM PDT Approved by: Lewis Lima MD on 04/16/2022 7:11 PM PDT Station ID: [id number]
[2022-04-16] MEDS: HYDROmorphone 1 MG/ML CARPUJECT IVP STA (19:53)
[2022-04-16 20:08] VITALS: BP 122/77
== END 2022-04-16 20:26 | disposition home or self-care (01) ==
LOC: EDUNIT# → ED 18:26
DX: R07.9 Chest pain, unspecified (principal); I10 Essential (primary) hypertension; E66.01 Morbid (severe) obesity due to excess calories
CPT/HCPCS: 36415; 71045; 80053; 83690; 83880; 84484; 85025; 93005; 96374; 99284; J1170

== ENCOUNTER 2022-04-19 15:12 | Emergency (ER) | payer MEDICAID ==
--- OUTSIDE RECORDS SUMMARY | 2022-04-19 15:48 | EXTERNAL MEDICAL SUMMARY RPT | Continuity of Care Document ---
:1970 Author Organization [facility] Address [address] [place] [address] Phone Allergies and Intolerances date description facility type (no date) Penicillins Located [facility] (unknown) (no date) Sulfa (Sulfonamide Antibiotics) [facility] (unknown) (no date) cedarwood Located [facility] (unknown) (no date) dipyridamole Located [facility] (unknown) (no date) eucalyptus Located [facility] (unknown) (no date) ketorolac Located [facility] (unknown) (no date) naproxen Located [facility] (unknown) (no date) pseudoephedrine Located [facility] (unknown) Encounters No information. Functional Status No information. Immunizations No information. Medications date description facility 0000 Acetaminophen 325 MG / Hydrocodone Is [facility] Bitartrate 5 MG Oral Tablet Problems No information. Procedures date description facility [id number] General Physician Located [facility] Results/Labs test date author facility value unit interpret ation Result panel 1 (unknown) (no (unknown) (unknown) (no value) (units (unk nown) date) unknown) (unknown) (no (unknown) (unknown) [address] [place] [address] (units (unknown) date) unknown) (unknown) (no (unknown) (unknown) [place], [place] (units ( unknown) date) [address] unknown) (unknown) (no (unknown) (unknown) Located [facility] (units (unknown) date) unknown) (unknown) (no (unknown) [...] (unknown) (unknown) COMPARISON: (units (un known) date) Located [facility], unknown) CR, XR SHOULDER RT MIN 2V, [...] particularly in the (unknown) (no (unknown) (unknown) [id number] (units (unkno wn) date) unknown) (unknown) (no (unknown) (unknown) Accession (units (unkn own) date) Number: unknown) [id number] (unknown) (no (unknown) (unknown) Accession (units (unkn own) date) Number: unknown) [id number] (unknown) (no (unknown) (unknown) Age/Sex: 52 / F (units (unknown) date) Date of unknown) Service: (unknown) (no (unknown) (unknown) : 1970 (units (unknown) date) Acct:[id number] unknown) (unknown) (no (unknown) (unknown) Loc: ED [...] (unknown) date) unknown) (unknown) (no (unknown) (unknown) Located [facility] (units (unknown) date) [address] unknown) [place] [address] (unknown) (no (unknown) (unknown) Pain (units (unkno [...] unknown) Recorded Confirmed (unknown) (no (unknown) (unknown) [id number] (units (unkno wn) date) unknown) (unknown) (no [...] (unknown) (unknown) : 1970 (units (unknown) date) Acct:[id number] unknown) (unknown) (no (unknown) (unknown) Departure (units [...] (unknown) date) unknown) (unknown) (no (unknown) (unknown) Located [facility] (units (unknown) date) [address] unknown) [place] [address] (unknown) (no (unknown) (unknown) Pain (units (unkno [...] and I have (unknown) (no (unknown) (unknown) [id number] (units (unkno wn) date) unknown) (unknown) (no [...] (unknown) (unknown) : 1970 (units (unknown) date) Acct:[id number] unknown) (unknown) (no (unknown) (unknown) Departure (units [...] (unknown) date) unknown) (unknown) (no (unknown) (unknown) [place] this (units (un known) date) evening. 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 At this point there is no evidence of acute (unknown) (no (unknown) (unknown) prescription. (units ( unknown) date) Prescription was unknown) electronically transmitted to Camryn in [place] (unknown) (no (unknown) (unknown) previously who is (units (unknown) date) okay if she is unknown) given a smaller doses of Onley rather than the (unknown) (no (unknown) (unknown) [...] facility (no date) Smokes tobacco daily (finding) Located [facility] Vital Signs date measurement value units +0000 BMI BMI 47.4 kg/m2 [id number]+0000 BP_diastolic BP_diastolic 62 mm[H g] +0000 BP_systolic BP_systolic 121 mm[Hg] [id number]+0000 heart_rate heart_rate 93 /min [id number]+0000 height_metric height_metric 165.1 cm [id number]+0000 height_standard height_standard 65 in [id number]+0000 respiration_rate respiration_rate 17 /min [id number]+0000 temperature_metric temperature_metric 35.56 C [id number]+0000 temperature_standard temperature_standard 9 6 F [id number]+0000 weight_metric weight_metric 58.64 kg [id number]+0000 weight_standard weight_standard 129.27 lb
[2022-04-19 15:53] LABS: BASOPHILS # (AUTO) 0.1 10^3/uL (0.0-0.1); BASOPHILS % (AUTO) 0.4 %; EOSINOPHILS # (AUTO) 0.2 10^3/uL (0.0-0.7); EOSINOPHILS % (AUTO) 1.4 %; HCT - HEMATOCRIT 42.2 % (37.0-47.0); HGB - HEMOGLOBIN 14.7 g/dL (12.0-16.0); LYMPHOCYTES # (AUTO) 2.4 10^3/uL (1.5-3.5); LYMPHOCYTES % (AUTO) 20.6 %; MEAN CORPUSCULAR HEMOGLOBIN 33.5 pg (27.0-31.0); MEAN CORPUSCULAR HGB CONC 34.8 g/dL (32.0-36.0); MEAN CORPUSCULAR VOLUME 96.1 fL (81.0-99.0); MEAN PLATELET VOLUME 9.5 fL (7.9-10.8); MONOCYTES # (AUTO) 0.7 10^3/uL (0.0-1.0); NEUTROPHILS # (AUTO) 8.4 10^3/uL (1.5-6.6); NEUTROPHILS % (AUTO) 71.3 %; PLT - PLATELET COUNT 341 10^3/uL (130-450); RED BLOOD COUNT 4.39 10^6/uL (4.20-5.40); RED CELL DISTRIBUTION WIDTH 14.3 % (12.0-15.0); WHITE BLOOD COUNT 11.8 x10^3/uL (4.8-10.8)
[2022-04-19 16:06] LABS: ALBUMIN 3.7 g/dL (3.2-5.5); BILIRUBIN,TOTAL 0.4 mg/dL (0.2-1.0); CREATININE 0.6 mg/dL (0.4-1.0); POTASSIUM 3.1 mmol/L (3.5-5.0); TOTAL PROTEIN 7.5 g/dL (6.7-8.2)
--- NOTE | 2022-04-19 17:14 | XRAY Report ---
PROCEDURE: Chest 1 View X-Ray INDICATIONS: Chest Pain TECHNIQUE: One view of the chest was acquired. COMPARISON: Chest radiograph 04/16/2022. FINDINGS: Surgical changes and devices: None. Lungs and pleura: No pleural effusions or pneumothorax. Lungs are clear. Mediastinum: Mediastinal contours appear normal. Heart size is normal. Bones and chest wall: No suspicious bony lesions. Overlying soft tissues appear unremarkable. IMPRESSION: No acute cardiopulmonary abnormality. Reviewed by: Dandy Braun MD on 04/19/2022 5:13 PM PDT Approved by: Dandy Braun MD on 04/19/2022 5:13 PM PDT Station ID: [id number]
[2022-04-19] MEDS ORDERED: ACETAMINOPHEN 325 MG TABLET PO STA (18:39)
[2022-04-19] MEDS ORDERED: SUCRALFATE 1 GM/10 ML UDC PO STA (18:39)
--- NOTE | 2022-04-19 18:47 | ED Physician Documentation ---
History of Present Illness - Stated complaint Stated Complaint: diff swallowing - Chief complaint Chief Complaint: Cardiac - History obtained from History obtained from: Patient - History of Present Illness Timing: How many weeks ago (several weeks) Pain level max: 5 Pain level now: 4 - Additonal information Additional information: 52 year old female presents to the emergency department with pain with swallowing and difficulty swallowing. She states she feels like food is getting stuck in her throat. She is tolerating liquids without difficulty. No vomiting. Has had similar symptoms in the past. She has a history of Schatzki rings. Patient has had endoscopies in the past. She has had esophageal dilation in the past. She states that she has an appointment with Lianna later this month. Worse with eating and drinking. Nothing makes it better. Review of Systems Constitutional: denies: Fever, Chills Nose: denies: Rhinorrhea / runny nose, Congestion PD PAST MEDICAL HISTORY - Past Medical History Cardiovascular: None Respiratory: Asthma Neuro: Migraines Endocrine/Autoimmune: Type 2 diabetes, HyPOthyroidism GI: GERD, Cirrhosis SERVICE CLEANER: None : None Psych: Depression, Anxiety Musculoskeletal: Osteoarthritis, Fibromyalgia, Chronic back pain Derm: Other - Past Surgical History Past Surgical History: Yes General: Cholecystectomy Ortho: Arthroscopic surgery, Carpal Tunnel surgery HEENT: Rhinoplasty - Present Medications Home Medications: Ambulatory Orders Medication Instructions Recorded Confirmed Brexpiprazole [Rexulti] 1 mg PO DAILY 09/08/18 02/11/22 Rabeprazole Sodium [Aciphex] 40 mg ORAL DAILY 09/08/18 02/11/22 Sertraline HCl [Zoloft] 100 mg ORAL BID 09/08/18 02/11/22 Aspirin [Aspirin EC] 81 mg PO DAILY 12/04/20 02/11/22 Lisinopril [Zestril] 10 mg PO DAILY 12/04/20 02/11/22 metFORMIN [Glucophage] 500 mg PO DAILY 12/04/20 02/11/22 Albuterol Sulf [Ventolin Hfa 1 - 2 puffs INH Q4HR PRN 03/16/21 02/11/22 Inhaler] Alprazolam [Xanax] 1 mg PO TID 03/16/21 02/11/22 Furosemide [Lasix] 120 mg PO DAILY 03/16/21 02/11/22 Tiotropium [place] [Spiriva 1 puffs PO DAILY 03/16/21 02/11/22 Respimat] Ibuprofen [Motrin] 600 mg PO TID PRN #25 tab 12/02/21 02/11/22 Pantoprazole Sodium [Protonix] 40 mg PO DAILY #30 tab 02/01/22 02/11/22 Oxycodone HCl/Acetaminophen 1 tab PO 5XD 02/11/22 02/11/22 [Percocet 10-325 mg Tablet] Prochlorperazine Maleate 10 mg PO Q4HR PRN #20 tab 02/11/22 [Compazine] predniSONE [Deltasone] 40 mg PO DAILY 4 Days #8 tablet 02/25/22 Fluconazole [Diflucan] 150 mg PO Q3D #3 tablet 03/26/22 Oxycodone HCl/Acetaminophen 1 each PO Q6H PRN #18 tablet 03/26/22 [Percocet 7.5-325 mg Tablet] cephALEXin [Keflex] 500 mg PO QID 5 Days #20 cap 03/26/22 dexAMETHasone [Decadron] 4 mg PO DAILY #5 tablet 03/26/22 Clotrimazole 1% Cream [Lotrimin 1% 10 gm TOP QID #500 gr 03/30/22 Cream] Fluconazole [Diflucan] 1 tablet PO Q3D 1 Days #3 tablet 03/30/22 clindamycin HCL [Cleocin HCl] 300 mg PO QID #28 cap 03/30/22 Doxycycline Hyclate 100 mg PO BID #20 tab.sr 03/31/22 HYDROcod/ACETAM 5/325 [Snyder 5/325] 1 ea PO Q6H PRN #7 tablet 04/19/22 - Allergies Allergies/Adverse Reactions: Allergies Allergy/AdvReac Type Severity Reaction Status Date / Time Egg Derived Allergy Emesis, Verified 04/19/22 15:18 stomach pain eucalyptus Allergy Anaphylaxis Verified 04/19/22 15:18 naproxen [From Aleve] Allergy Cramps Verified 04/19/22 15:18 Penicillins Allergy Anaphylaxis Verified 04/19/22 15:18 Sulfa (Sulfonamide Allergy Cramps Verified 04/19/22 15:18 Antibiotics) ketorolac [From Toradol] AdvReac Headache Verified 04/19/22 15:18 - Social History Does the pt smoke?: Yes Smoking Status: Current every day smoker Does the pt drink ETOH?: No Does the pt have substance abuse?: No - Immunizations Immunizations are current?: Yes - POLST Patient has POLST: No PD ED PE NORMAL - Vitals Vital signs reviewed: Yes - General General: Alert and oriented X 3, No acute distress - HEENT HEENT: Moist mucous membranes - Neck Neck: Supple, no meningeal sign - Cardiac Cardiac: RRR - Respiratory Respiratory: No respiratory distress, Clear bilaterally - Abdomen Abdomen: Soft, Non tender, Non distended - Derm Derm: Warm and dry - Neuro Neuro: Alert and oriented X 3 Results - Vitals Vitals: Vital Signs - 24 hr 04/19/22 04/19/22 04/19/22 15:19 15:24 19:00 Temperature 36 C L 36 C L Heart Rate 106 H 106 H 93 Respiratory 18 18 18 Rate Blood Pressure 137/97 H 137/97 H 177/69 H O2 Saturation 98 98 97 04/19/22 19:53 Temperature 36 C L Heart Rate 93 Respiratory 18 Rate Blood Pressure 177/69 H O2 Saturation 97 Oxygen O2 Source Room air - EKG (time done) 1528 Rate: Rate (enter#) (95) Rhythm: NSR [place]: Normal Intervals: Normal MD QRS: Normal Ischemia: Normal ST segments - Labs Labs: Laboratory Tests 04/19/22 04/19/22 04/19/22 15:46 15:46 15:46 WBC 11.8 H RBC 4.39 Hgb 14.7 Hct 42.2 MCV 96.1 MCH 33.5 H MCHC 34.8 RDW 14.3 Plt Count 341 MPV 9.5 Neut # (Auto) 8.4 H Lymph # (Auto) 2.4 [place] # (Auto) 0.7 Eos # (Auto) 0.2 Baso # (Auto) 0.1 Absolute Nucleated RBC 0.00 Nucleated RBC % 0.0 Sodium 135 Potassium 3.1 L Chloride 100 L Carbon Dioxide 22 Anion Gap 13.0 BUN 5 L Creatinine 0.6 Estimated GFR (MDRD) 106 Glucose 129 H Calcium 9.0 Total Bilirubin 0.4 AST 20 ALT 16 Alkaline Phosphatase 111 Troponin I High Sens 3.6 Total Protein 7.5 Albumin 3.7 Globulin 3.8 Albumin/Globulin Ratio 1.0 Lipase 38 - Rads (name of study) cxr Radiology: Final report received, EMP read contemporaneously, See rad report PD MEDICAL DECISION MAKING - ED course Complexity details: reviewed results, re-evaluated patient, considered differential, d/w patient ED course: No significant lab abnormalities. No significant findings on x-ray or EKG. I discussed the case with the general surgery engineer conductor, Dr. Uribe. She recommends following up with a G.I. for esophageal dilation. She stated that this is not a procedure commonly done at this hospital. We do not have the ability to manage the complications if she were to have an esophagill prescribe a small amount of pain medication for her. Patient counseled regarding Signs and symptoms for which I believe in urgent reevaluation would be needed. Patient comfortable going home at this time. Departure - Departure Disposition: Home, Self Care Clinical Impression: Schatzki's ring Condition: Good Instructions: ED Spasm Esophageal Follow-Up: Mary Gandhi ARNP [Primary Care Provider] - Within 3 Days Prescriptions: HYDROcod/ACETAM 5/325 [Snyder 5/325] 1 ea PO Q6H PRN #7 tablet PRN Reason: Pain Comments: I spoke with our surgeon on-call rosie, she confirmed that they do not dilate Schatzki's rings at this hospital. Dr. Uribe recommends following up outpatient with a GI specialist who is experienced with dilating these rings as they can cause perforation on stretching. We do not have GI engineer conductor here. I would recommend that you stick to a liquid diet, Ensure, Boost, etc. so that you do not develop an esophageal impaction. I am prescribing a short course of narcotic pain medication for you. These are potentially dangerous and addictive medications that should be used carefully. These medications may constipate you. Take an [id number] stool softener (docusate) twice daily with plenty of water while taking these medications. If you go 24 hours without a bowel movement, take [id number] miralax, per package instructions. Do not drink or drive while taking these medications. If you received narcotic or sedating medications while in the emergency department, do not drive for 24 hours. Store this medication in a safe, secure place and out of reach of children. It is a violation of federal law to give or sell this medication to another person or to use in a manner other than prescribed. The ED will not refill narcotic prescriptions, including prescriptions lost or stolen. To dispose of unwanted medications: 1. [facility] at [address] in [facility] has a medication drop box. They accept prescription medications (in pill form) Monday through Monday 9:00 a.m. to 5:00 p.m. 2. The [facility] accepts prescription medications (in pill form only) for disposal year round. Call for more information. 3. Contact the [facility] for the next [facility] sponsored prescription drug collection event. , [phone], or [phone]; Discharge Date/Time: 04/19/22 19:40
[2022-04-19 19:08] VITALS: BP 177/69
[2022-04-19] MEDS ORDERED: HYDROcod/ACETAM 5/325 MG TABLET PO STA (19:22)
== END 2022-04-19 19:40 | disposition home or self-care (01) ==
LOC: ED 15:12
DX: K22.2 Esophageal obstruction (principal); F17.200 Nicotine dependence, unspecified, uncomplicated
CPT/HCPCS: 36415; 71045; 80053; 83690; 84484; 85025; 93005; 99284; A9270

== ENCOUNTER 2022-06-12 21:02 | Outpatient (CLI) | payer MEDICAID | END 2022-06-12 23:59 | disposition short-term general hospital (02) | LOC: EMS 21:02 | DX: M25.552 Pain in left hip (principal); M79.622 Pain in left upper arm; W01.0XXA Fall on same level from slipping, tripping and stumbling without subsequent striking against object, initial encounter; Y92.009 Unspecified place in unspecified non-institutional (private) residence as the place of occurrence of the external cause | CPT/HCPCS: A0425; A0429; A0999 ==

== ENCOUNTER 2022-06-14 12:12 | Outpatient (CLI) | payer MEDICAID | END 2022-06-14 12:13 | disposition short-term general hospital (02) | LOC: EMS 12:12 | DX: S80.01XA Contusion of right knee, initial encounter (principal); W01.0XXA Fall on same level from slipping, tripping and stumbling without subsequent striking against object, initial encounter; Y92.009 Unspecified place in unspecified non-institutional (private) residence as the place of occurrence of the external cause | CPT/HCPCS: A0425; A0427; A0999 ==

== ENCOUNTER 2022-07-18 08:00 | Outpatient (CLI) | payer MEDICAID ==
--- NOTE | 2022-07-18 15:36 | XRAY Report ---
PROCEDURE: Knee 4 View RT INDICATIONS: right knee pain TECHNIQUE: 4 views of the right knee(s) were acquired. COMPARISON: X-ray right knee, 05/25/2022 and 01/20/2022. FINDINGS: Bones: No fractures or dislocations. No suspicious bony lesions. There is lateral tilt of patella. There is moderate tricompartmental knee joint degeneration. Suspect intra-articular bodies projectin g to the intercondylar notch on the frontal view which Soft tissues: Small joint effusion. No suspicious soft tissue calcifications. IMPRESSION: 1. Moderate degenerative joint disease. 2. Question intra-articular bodies. 3. Small joint effusion. Reviewed by: Nazanin Malone MD on 07/18/2022 3:34 PM PDT Approved by: Nazanin Malone MD on 07/18/2022 3:34 PM PDT Station ID: [id number]
== END 2022-07-18 23:59 | disposition home or self-care (01) ==
LOC: DI.WOS 08:00
PROVIDERS: ATTEND Orthopaedic Surgery
DX: M17.11 Unilateral primary osteoarthritis, right knee (principal); M25.461 Effusion, right knee

== ENCOUNTER 2022-08-08 12:09 | Outpatient (CLI) | payer MEDICAID | END 2022-08-08 12:10 | disposition critical access hospital (66) | LOC: EMS 12:09 | DX: R52 Pain, unspecified (principal); R26.2 Difficulty in walking, not elsewhere classified; M32.9 Systemic lupus erythematosus, unspecified; R06.02 Shortness of breath; Z91.14 Patient's other noncompliance with medication regimen | CPT/HCPCS: A0425; A0429; A0999 ==

== ENCOUNTER 2022-08-08 12:23 | Emergency (ER) | payer MEDICAID ==
--- OUTSIDE RECORDS SUMMARY | 2022-08-08 12:46 | EXTERNAL MEDICAL SUMMARY RPT | Continuity of Care Document ---
:1970 Author Organization [facility] Address [address] [place] [address] Phone Care Team Providers Name Role Phone Nikolai Gray Unavailable Unavailable Allergies and Intolerances date description facility type (no date) Penicillins [facility] (unknown) (no date) Sulfa (Sulfonamide Antibiotics) [facility] (no date[facility] dipyridamole [facility] (unknown) (no date) eucalyptus [facility] (unknown) (no date) ketorolac [facility] (unknown) (no date) naproxen [facility] (unknown) (no date) pseudoephedrine [facility] (unknown) Encounters No information. Functional Status No information. Immunizations No information. Medications date description facility [id number] [facility] [id number] Gabapentin [facility] [id number]+0000 Methylprednisolone [facility] Problems No information. Procedures date description facility [id number] XR pelvis 1-[address] [place] [address] [id number] XR shoulder LT min [address] [place] [address] [id number] CT pelvis [facility] [id number] XR knee RT [address] [place] [address] [id number] CT lumbar spine [facility] Results/Labs test date author facility value unit interpret ation Result panel 1 (unknown) (no date) (unknown) (unknown) (no value) (units (un known) unknown) (unknown) (no date) (unknown) (unknown) [id number] (units (unkn own) unknown) (unknown) (no date) (unknown) (unknown) 06/12/22 (units (unkn own) unknown) (unknown) (no date) (unknown) (unknown) [address] (units (unk nown) [address] unknown) (unknown) (no date) (unknown) (unknown) Accession (units (unk nown) Number: unknown) [id number] (unknown) (no date) (unknown) (unknown) Accession (units (unk nown) Number: unknown) [id number] (unknown) (no date) (unknown) (unknown) Age/Sex: 52 / (units (unknown) F Date of unknown) Service: (unknown) (no date) (unknown) (unknown) [place], [place] (units (unknown) [address] unknown) (unknown) (no date) (unknown) (unknown) Approved by: (units ( unknown) Calin Burks unknown) MAnniDAnni on 06/12/2022 at 22:22 (unknown) (no date) (unknown) (unknown) Approved by: (units ( unknown) lindsey Jackson) MAnniDAnni on 06/12/2022 at 22:23 (unknown) (no date) (unknown) (unknown) Bones: No (units (unk nown) fractures or unknown) dislocations. No suspicious bony lesions. Visualized (unknown) (no date) (unknown) (unknown) Bones: No (units (unk nown) fractures or unknown) dislocations. No suspicious bony lesions. (unknown) (no date) (unknown) (unknown) COMPARISON: (units (u darrionn) [facility] unknown) [facility], CR, XR SHOULDER LT MIN 2V, 03/03/2022, 17:40. (unknown) (no date) (unknown) (unknown) COMPARISON: (units (u nknown) [facility] unknown) [facility], CR, XR SHOULDER LT MIN 2V, 06/12/2022, 22:07. (unknown) (no date) (unknown) (unknown) : (units (unkn own) 1970 unknown) Acct:[id number] (unknown) (no date) (unknown) (unknown) Dictated by: (units ( unknown) lindsey Jackson) M.Stephen on 06/12/2022 at 22:22 (unknown) (no date) (unknown) (unknown) Dictated by: (units ( unknown) lindsey Jackson) M.DAnni on 06/12/2022 at 22:23 (unknown) (no date) (unknown) (unknown) FINDINGS: (units (unk nown) unknown) (unknown) (no date) (unknown) (unknown) Hospital, , (units (unknown) XR SHOULDER RT unknown) MIN 2V, 12/12/2019, 14:16. (unknown) (no date) (unknown) (unknown) IMPRESSION: No (units (unknown) trauma found. unknown) (unknown) (no date) (unknown) (unknown) INDICATIONS: (units ( unknown) fall unknown) (unknown) (no date) (unknown) (unknown) [facility]) (unknown) (no date) (unknown) (unknown) [facility] ([facility]kn own) [facility]) (unknown) (no date) (unknown) (unknown) Loc: ED (units (unkn own) unknown) (unknown) (no date) (unknown) (unknown) Ordering (units (unkn own) Provider: unknown) Robert Zurita D.O. (unknown) (no date) (unknown) (unknown) PROCEDURE: XR (units (unknown) PELVIS 1-2V unknown) (unknown) (no date) (unknown) (unknown) PROCEDURE: XR (units (unknown) SHOULDER LT MIN unknown) 2V (unknown) (no date) (unknown) (unknown) Patient: (units (unkn own) Rosa Ramon unknown) MR#: [id number] (unknown) (no date) (unknown) (unknown) Procedure: XR (units (unknown) pelvis 1-2V unknown) (unknown) (no date) (unknown) (unknown) Procedure: XR (units (unknown) shoulder LT min unknown) 2V (unknown) (no date) (unknown) (unknown) Signed (units (unkn own) unknown) (unknown) (no date) (unknown) (unknown) Soft tissues: (units (unknown) No suspicious unknown) soft tissue calcifications. (unknown) (no date) (unknown) (unknown) Soft tissues: (units (unknown) Visualized unknown) bowel gas pattern is normal. No suspicious soft (unknown) (no date) (unknown) (unknown) TECHNIQUE: 3 (units ( unknown) views of the unknown) shoulder were acquired. (unknown) (no date) (unknown) (unknown) TECHNIQUE: (units (un known) Single view(s) unknown) of the pelvis acquired. (unknown) (no date) (unknown) (unknown) XRay Report (units (u nknown) unknown) (unknown) (no date) (unknown) (unknown) appear intact. (units (unknown) unknown) (unknown) (no date) (unknown) (unknown) calcifications (units (unknown) . unknown) (unknown) (no date) (unknown) (unknown) ribs (units (unkn own) unknown) (unknown) (no date) (unknown) (unknown) tissue (units (unkn own) unknown) Result panel 2 (unknown) (no (unknown) (unknown) (no value) (units (unk nown) date) unknown) (unknown) (no (unknown) (unknown) [id number] (units (unkno wn) date) unknown) (unknown) (no (unknown) (unknown) 06/12/22 (units (unkno wn) date) unknown) (unknown) (no (unknown) (unknown) [address] [place] [address] (units (unknown) date) unknown) (unknown) (no (unknown) (unknown) Accession Number: (units (unknown) date) [id number] unknown) (unknown) (no (unknown) (unknown) Accession Number: (units (unknown) date) [id number] unknown) (unknown) (no (unknown) (unknown) Age/Sex: 52 / F (units (unknown) date) Date of Service: unknown) (unknown) (no (unknown) (unknown) [place], [place] (units ( unknown) date) [id number] unknown) (unknown) (no (unknown) (unknown) Approved by: (units (u nknown) date) lindsey Jackson) MAnniDAnni on 06/12/2022 at 23:05 (unknown) (no (unknown) (unknown) Approved by: (units (u nknown) date) Calin Burks unknown) MKimberly on 06/12/2022 at 23:07 (unknown) (no (unknown) (unknown) Bones: No trauma (units (unknown) date) found. unknown) (unknown) (no (unknown) (unknown) Bones: There is (units (unknown) date) normal bony unknown) alignment. No acute vertebral body compression (unknown) (no (unknown) (unknown) COMPARISON: None. (units (unknown) date) unknown) (unknown) (no (unknown) (unknown) CT Scan Report (units (unknown) date) unknown) (unknown) (no (unknown) (unknown) : 1970 (units (unknown) date) Acct:[id number] unknown) (unknown) (no (unknown) (unknown) Dictated by: (units (u nknown) date) lindsey Jackson) M.DAnni on 06/12/2022 at 23:04 (unknown) (no (unknown) (unknown) Dictated by: (units (u nknown) date) Calin Burks unknown) MAnniDAnni on 06/12/2022 at 23:06 (unknown) (no (unknown) (unknown) FINDINGS: (units (unkn own) date) unknown) (unknown) (no (unknown) (unknown) IMPRESSION: No (units (unknown) date) trauma found, mild unknown) degenerative disc disease is seen with disc (unknown) (no (unknown) (unknown) IMPRESSION: No (units (unknown) date) trauma identified. unknown) (unknown) (no (unknown) (unknown) INDICATIONS: fall (units (unknown) date) with midline back unknown) pain (unknown) (no (unknown) (unknown) INDICATIONS: fall (units (unknown) date) with severe left unknown) hip pain (unknown) (no (unknown) (unknown) Image quality: (units (unknown) date) Excellent. unknown) (unknown) (no (unknown) (unknown) [facility] (units (unknown) date) unknown) (unknown) (no (unknown) (unknown) Loc: ED (units (unkno wn) date) unknown) (unknown) (no (unknown) (unknown) No suspicious (units ( unknown) date) lytic or blastic unknown) bony lesions. No pars defects. (unknown) (no (unknown) (unknown) Noncontrast 3 mm (units (unknown) date) axial sections unknown) acquired through the bony pelvis, with coronal (unknown) (no (unknown) (unknown) Noncontrast 3 mm (units (unknown) date) thick sections unknown) acquired from the T12 level to the sacrum. (unknown) (no (unknown) (unknown) Ordering (units (unkno wn) date) Provider: unknown) [place],Robert D.O. (unknown) (no (unknown) (unknown) PROCEDURE: CT (units ( unknown) date) LUMBAR SPINE WO unknown) CON (unknown) (no (unknown) (unknown) PROCEDURE: CT PEL (units (unknown) date) WO CON unknown) (unknown) (no (unknown) (unknown) Patient: (units (unkno wn) date) Rosa Ramon L unknown) MR#: [id number] (unknown) (no (unknown) (unknown) Procedure: CT (units ( unknown) date) lumbar spine wo unknown) con (unknown) (no (unknown) (unknown) Procedure: CT (units ( unknown) date) pelvis wo con unknown) (unknown) (no (unknown) (unknown) Sagittal and (units (u nknown) date) unknown) (unknown) (no (unknown) (unknown) Signed (units (unkno wn) date) unknown) (unknown) (no (unknown) (unknown) Soft tissues: No (units (unknown) date) hematoma or unknown) evidence soft tissue contusion found. (unknown) (no (unknown) (unknown) Soft tissues: No (units (unknown) date) retroperitoneal unknown) masses or hematomas. Visualized aorta is (unknown) (no (unknown) (unknown) TECHNIQUE: (units (unk nown) date) unknown) (unknown) (no (unknown) (unknown) and (units (unkno wn) date) unknown) (unknown) (no (unknown) (unknown) caliber. (units (unkno wn) date) unknown) (unknown) (no (unknown) (unknown) coronal reformats (units (unknown) date) were constructed. unknown) For radiation dose reduction, the (unknown) (no (unknown) (unknown) following was (units ( unknown) date) unknown) (unknown) (no (unknown) (unknown) fractures. (units (unk nown) date) unknown) (unknown) (no (unknown) (unknown) height (units (unkno wn) date) unknown) (unknown) (no (unknown) (unknown) impingement. (units (u nknown) date) unknown) (unknown) (no (unknown) (unknown) normal in (units (unkn own) date) unknown) (unknown) (no (unknown) (unknown) reduction present (units (unknown) date) at L4-5 and L5-S1 unknown) but without subluxation or definite nerve (unknown) (no (unknown) (unknown) root (units (unkno wn) date) unknown) (unknown) (no (unknown) (unknown) sagittal (units (unkno wn) date) reformatting. unknown) (unknown) (no (unknown) (unknown) used: automated (units (unknown) date) exposure control. unknown) Result panel 3 (unknown) (no (unknown) (unknown) (no value) (units (unk nown) date) unknown) (unknown) (no (unknown) (unknown) (Scale Score 4-6) (units (unknown) date) unknown) (unknown) (no (unknown) (unknown) [id number] (units (unkno wn) date) unknown) (unknown) (no (unknown) (unknown) 04/26/22 (units (unkno wn) date) unknown) (unknown) (no (unknown) (unknown) 06/12/22 21:48 (units (unknown) date) unknown) (unknown) (no (unknown) (unknown) 06/12/22 (units (unkno wn) date) unknown) (unknown) (no (unknown) (unknown) 1 applic topical (units (unknown) date) BID Qty: 14 0RF unknown) (unknown) (no (unknown) (unknown) 1 cap INHALATION (units (unknown) date) DAILY unknown) (unknown) (no (unknown) (unknown) 1 mg PO DAILY (units ( unknown) date) unknown) (unknown) (no (unknown) (unknown) 1 mg PO QAM (units (un known) date) unknown) (unknown) (no (unknown) (unknown) 1 patch topical (units (unknown) date) PRN PRN (Reason: unknown) Pain (Scale Score 4-6)) (unknown) (no (unknown) (unknown) 1 tab PO Q3H PRN (units (unknown) date) (Reason: Pain unknown) (Scale Score 4-6)) (unknown) (no (unknown) (unknown) 10 mg PO DAILY (units (unknown) date) unknown) (unknown) (no (unknown) (unknown) 100 mg PO BID (units ( unknown) date) unknown) (unknown) (no (unknown) (unknown) 120 mg PO DAILY (units (unknown) date) unknown) (unknown) (no (unknown) (unknown) 2 puff INHALATION (units (unknown) date) Q4-6H PRN (Reason: unknown) Shortness Of Breath) (unknown) (no (unknown) (unknown) 200 mg PO DAILY (units (unknown) date) Qty: 7 0RF unknown) (unknown) (no (unknown) (unknown) 21:41 (units (unkno wn) date) unknown) (unknown) (no (unknown) (unknown) 40 mg PO QAM PRN (units (unknown) date) (Reason: Acid unknown) Reflux) (unknown) (no (unknown) (unknown) 40 mg PO QAM (units (u nknown) date) unknown) (unknown) (no (unknown) (unknown) 500 mg PO BID PRN (units (unknown) date) (Reason: unknown) Hyperglycemia) (unknown) (no (unknown) (unknown) AcipHex Sprinkle (units (unknown) date) 5 mg Capsule, unknown) Delayed Rel Sprinkle (unknown) (no (unknown) (unknown) Age/Sex: 52 / F (units (unknown) date) unknown) (unknown) (no (unknown) (unknown) Allergies (units (unkn own) date) unknown) (unknown) (no (unknown) (unknown) Allergy/AdvReac (units (unknown) date) Type Severity unknown) Reaction Status Date / Time (unknown) (no (unknown) (unknown) Antibiotics) (units (u nknown) date) unknown) (unknown) (no (unknown) (unknown) Asthma (units (unkno wn) date) unknown) (unknown) (no (unknown) (unknown) Blood Pressure (units (unknown) date) 133/80 06/12/22 unknown) 21:41 (unknown) (no (unknown) (unknown) Blood Pressure (units (unknown) date) 133/80 unknown) (unknown) (no (unknown) (unknown) Breathing (units (unkn own) date) unknown) (unknown) (no (unknown) (unknown) Chief Complaint: (units (unknown) date) Fall unknown) (unknown) (no (unknown) (unknown) Chronic anemia (units (unknown) date) unknown) (unknown) (no (unknown) (unknown) Course (units (unkno wn) date) unknown) (unknown) (no (unknown) (unknown) : 1970 (units (unknown) date) Acct:[id number] unknown) (unknown) (no (unknown) (unknown) Date of Service: (units (unknown) date) 06/12/22 unknown) (unknown) (no (unknown) (unknown) Departure (units (unkn own) date) unknown) (unknown) (no (unknown) (unknown) Diabetes (units (unkno wn) date) mellitus, type 2 unknown) (unknown) (no (unknown) (unknown) Discharge Plan (units (unknown) date) unknown) (unknown) (no (unknown) (unknown) Nikolai Gray, (units (unknown) date) MD [Primary Care unknown) Provider] (unknown) (no (unknown) (unknown) ED Orders (units (unkn own) date) unknown) (unknown) (no (unknown) (unknown) ER Physician: (units ( unknown) date) Robert Zurita D.O. unknown) (unknown) (no (unknown) (unknown) Emergency Report (units (unknown) date) unknown) (unknown) (no (unknown) (unknown) Exam (units (unkno wn) date) unknown) (unknown) (no (unknown) (unknown) Fibromyalgia [...] tunnel release unknown) (unknown) (no (unknown) (unknown) Home Medications (units (unknown) date) unknown) (unknown) (no (unknown) (unknown) Hx of [...] spine surgery unknown) (unknown) (no (unknown) (unknown) Initial Vital (units ( unknown) date) Signs unknown) (unknown) (no (unknown) (unknown) Initial Vital (units ( unknown) date) Signs: unknown) (unknown) (no (unknown) (unknown) [facility] (units (unknown) date) [address] unknown) [place] [address] (unknown) (no (unknown) (unknown) Label Comments: (units (unknown) date) unknown) (unknown) (no (unknown) (unknown) Lupus (units (unkno wn) date) unknown) (unknown) (no (unknown) (unknown) Medical History (units (unknown) date) (Reviewed 04/26/22 unknown) @ 09:40 by Tila Desai DO) (unknown) (no (unknown) (unknown) Medication (units (unk nown) date) Instructions unknown) Recorded Confirmed (unknown) (no (unknown) (unknown) Medication (units (unk nown) date) Instructions unknown) Recorded (unknown) (no (unknown) (unknown) 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, non-alcoholic (unknown) (no (unknown) (unknown) Mode of arrival: (units (unknown) date) EMS unknown) (unknown) (no (unknown) (unknown) No Action (units (unkn own) date) unknown) (unknown) (no (unknown) (unknown) Obesity, morbid, (units (unknown) date) BMI 50 or higher unknown) (unknown) (no (unknown) (unknown) Ordered: (units (unkno wn) date) unknown) (unknown) (no (unknown) (unknown) Orders (units (unkno wn) date) unknown) (unknown) (no (unknown) (unknown) Osteoarthritis (units (unknown) date) unknown) (unknown) (no (unknown) (unknown) Oxygen Delivery (units (unknown) date) Method 06/12/22 unknown) 21:41 (unknown) (no (unknown) (unknown) Oxygen Delivery (units (unknown) date) Method Room Air unknown) (unknown) (no (unknown) (unknown) Pain (units (unkno wn) date) unknown) (unknown) (no (unknown) (unknown) Patient History (units (unknown) date) unknown) (unknown) (no (unknown) (unknown) Patient: (units (unkno wn) date) Rosa Ramon unknown) MR#: [id number] (unknown) (no (unknown) (unknown) Penicillins (units (un known) date) Allergy Severe unknown) Difficulty Verified 06/12/22 21:48 (unknown) (no (unknown) (unknown) Prescriptions: (units (unknown) date) unknown) (unknown) (no (unknown) (unknown) Previous Rx's (units ( unknown) date) unknown) (unknown) (no (unknown) (unknown) Psoriatic (units (unkn own) date) arthritis unknown) (unknown) (no (unknown) (unknown) Pulse Oximetry 99 (units (unknown) date) 06/12/22 21:41 unknown) (unknown) (no (unknown) (unknown) Pulse Oximetry 99 (units (unknown) date) unknown) (unknown) (no (unknown) (unknown) Pulse Rate 82 (units ( unknown) date) 06/12/22 21:41 unknown) (unknown) (no (unknown) (unknown) Pulse Rate 82 (units ( unknown) date) unknown) (unknown) (no (unknown) (unknown) Referrals: (units (unk nown) date) unknown) (unknown) (no (unknown) (unknown) Related Data (units (u nknown) date) unknown) (unknown) (no (unknown) (unknown) Respiratory Rate (units (unknown) date) 20 06/12/22 21:41 unknown) (unknown) (no (unknown) (unknown) Respiratory Rate (units (unknown) date) 20 unknown) (unknown) (no (unknown) (unknown) Rexulti 2 mg (units (u nknown) date) Tablet unknown) (unknown) (no (unknown) (unknown) Signed By: (units (unk nown) date) unknown) (unknown) (no (unknown) (unknown) Smoking Status: (units (unknown) date) Current every day unknown) smoker (unknown) (no (unknown) (unknown) Social History (units (unknown) date) (Reviewed 04/26/22 unknown) @ 09:40 by Tila Desai DO) (unknown) (no (unknown) (unknown) Source: EMS (units (un known) date) unknown) (unknown) (no (unknown) (unknown) Spiriva with (units (u nknown) date) HandiHaler 18 mcg unknown) Capsule, W/Inhalation Device (unknown) (no (unknown) (unknown) Stated Complaint: (units (unknown) date) rt shoulder pain unknown) (unknown) (no (unknown) (unknown) Substance Use (units ( unknown) date) Type: does not use unknown) (unknown) (no (unknown) (unknown) Sulfa (units (unkno wn) date) (Sulfonamide unknown) AdvReac Intermediate Joint Pain Verified 06/12/22 21:48 (unknown) (no (unknown) (unknown) Surgical History (units (unknown) date) (Reviewed 04/26/22 unknown) @ 09:40 by Tila Desai DO) (unknown) (no (unknown) (unknown) TABLETS . (units (unkn own) date) unknown) (unknown) (no (unknown) (unknown) TAKE 1 TABLET BY (units (unknown) date) MOUTH DAILY unknown) (unknown) (no (unknown) (unknown) TAKE 1 TABLET BY (units (unknown) date) MOUTH EVERY 4 TO 6 unknown) HOURS NEEDED . MAXIMUM DAILY DOSE IS 5 (unknown) (no (unknown) (unknown) TAKE 1 TABLET BY (units (unknown) date) MOUTH EVERY DAY unknown) (unknown) (no (unknown) (unknown) Temperature 98.6 (units (unknown) date) F 06/12/22 21:41 unknown) (unknown) (no (unknown) (unknown) Temperature 98.6 (units (unknown) date) F unknown) (unknown) (no (unknown) (unknown) Time Seen by (units (u nknown) date) Provider: 06/12/22 unknown) 22:18 (unknown) (no (unknown) (unknown) Vital Signs - 8 (units (unknown) date) hr unknown) (unknown) (no (unknown) (unknown) Vital Signs (units (un known) date) unknown) (unknown) (no (unknown) (unknown) Vital signs: (units (u nknown) date) unknown) (unknown) (no (unknown) (unknown) XR pelvis 1-2V (units (unknown) date) Stat unknown) (unknown) (no (unknown) (unknown) XR shoulder LT (units (unknown) date) min 2V Stat unknown) (unknown) (no (unknown) (unknown) aerosol inhaler (units (unknown) date) Shortness Of unknown) Breath (unknown) (no (unknown) (unknown) albuterol sulfate (units (unknown) date) 90 mcg/actuation 2 unknown) puff inhalation Q4-6H PRN 03/05/21 04/26/22 (unknown) (no (unknown) (unknown) albuterol sulfate (units (unknown) date) 90 mcg/actuation unknown) Hfa Aerosol Inhaler (unknown) (no (unknown) (unknown) alcohol intake (units (unknown) date) frequency: unknown) holidays/special occasions only (unknown) (no (unknown) (unknown) alcohol intake: (units (unknown) date) current unknown) (unknown) (no (unknown) (unknown) alprazolam 3 mg (units (unknown) date) tablet,extended 1 unknown) mg PO DAILY 03/05/21 04/26/22 (unknown) (no (unknown) (unknown) alprazolam [Xanax (units (unknown) date) XR] 3 mg Tablet unknown) Extended Release 24 Hr (unknown) (no (unknown) (unknown) brexpiprazole 2 (units (unknown) date) mg tablet unknown) (Rexulti) 1 mg PO DAILY 03/05/21 04/26/22 (unknown) (no (unknown) (unknown) [place] Allergy (units (unknown) date) Severe Difficulty unknown) Verified 06/12/22 21:48 (unknown) (no (unknown) (unknown) dipyridamole (units (u nknown) date) AdvReac unknown) Intermediate Joint Pain Verified 06/12/22 21:48 (unknown) (no (unknown) (unknown) eggshell membrane (units (unknown) date) Allergy unknown) Intermediate Abdominal Uncoded 03/08/21 07:16 (unknown) (no (unknown) (unknown) eucalyptus (units (unk nown) date) Allergy Severe unknown) Difficulty Verified 06/12/22 21:48 (unknown) (no (unknown) (unknown) fluconazole 200 (units (unknown) date) mg tablet 200 mg unknown) PO DAILY #7 tabs 04/27/22 (unknown) (no (unknown) (unknown) fluconazole 200 (units (unknown) date) mg tablet unknown) (unknown) (no (unknown) (unknown) furosemide 40 mg (units (unknown) date) tablet (Lasix) 120 unknown) mg PO DAILY 03/05/21 04/26/22 (unknown) (no (unknown) (unknown) furosemide (units (unk nown) date) [Lasix] 40 mg unknown) Tablet (unknown) (no (unknown) (unknown) household (units (unkn own) date) members: family unknown) (unknown) (no (unknown) (unknown) ketorolac [From (units (unknown) date) Toradol] Allergy unknown) Verified 06/12/22 21:48 (unknown) (no (unknown) (unknown) lidocaine 5 % (units ( unknown) date) adhesive unknown) patch,medicated (unknown) (no (unknown) (unknown) lidocaine 5 % (units ( unknown) date) topical patch 1 unknown) patch topical PRN PRN Pain 04/26/22 04/26/22 (unknown) (no (unknown) (unknown) lisinopril 10 mg (units (unknown) date) Tablet unknown) (unknown) (no (unknown) (unknown) lisinopril 10 mg (units (unknown) date) tablet 10 mg PO unknown) DAILY 03/05/21 04/26/22 (unknown) (no (unknown) (unknown) metformin 500 mg (units (unknown) date) Tablet unknown) (unknown) (no (unknown) (unknown) metformin 500 mg (units (unknown) date) tablet 500 mg PO unknown) BID PRN Hyperglycemia 03/05/21 04/26/22 (unknown) (no (unknown) (unknown) mg tablet 4-6) (units (unknown) date) unknown) (unknown) (no (unknown) (unknown) naproxen AdvReac (units (unknown) date) Intermediate Joint unknown) Pain Verified 06/12/22 21:48 (unknown) (no (unknown) (unknown) nystatin 100,000 (units (unknown) date) unit/gram topical unknown) 1 applic topical BID #14 grams 04/27/22 (unknown) (no (unknown) (unknown) nystatin [Nystop] (units (unknown) date) 100,000 unit/gram unknown) Powder (unknown) (no (unknown) (unknown) oxycodone-acetami (units (unknown) date) nophen 10 mg-325 1 unknown) tab PO Q3H PRN Pain (Scale Score 04/26/22 (unknown) (no (unknown) (unknown) oxycodone-acetami (units (unknown) date) nophen 10-325 mg unknown) tablet (unknown) (no (unknown) (unknown) pantoprazole 40 mg (units (unknown) date) tablet,delayed 40 unknown) mg PO QAM PRN Acid Reflux 04/26/22 04/26/22 (unknown) (no (unknown) (unknown) pantoprazole 40 (units (unknown) date) mg tablet,delayed unknown) release (DR/EC) (unknown) (no (unknown) (unknown) powder (Nystop) (units (unknown) date) unknown) (unknown) (no (unknown) (unknown) pseudoephedrine (units (unknown) date) AdvReac unknown) Intermediate Joint Pain Verified 06/12/22 21:48 (unknown) (no (unknown) (unknown) rabeprazole 5 mg (units (unknown) date) capsule,delayed 40 unknown) mg PO QAM 03/05/21 04/26/22 (unknown) (no (unknown) (unknown) release 24 hr (units ( unknown) date) (Xanax XR) unknown) (unknown) (no (unknown) (unknown) release sprinkle (units (unknown) date) (AcipHex Sprinkle) unknown) (unknown) (no (unknown) (unknown) release (units (unkno wn) date) unknown) (unknown) (no (unknown) (unknown) sertraline 25 mg (units (unknown) date) tablet (Zoloft) unknown) 100 mg PO BID 03/05/21 04/26/22 (unknown) (no (unknown) (unknown) sertraline (units (unk nown) date) [Zoloft] 25 mg unknown) Tablet (unknown) (no (unknown) (unknown) tiotropium (units (unk nown) date) bromide 18 mcg unknown) capsule 1 cap inhalation DAILY 03/05/21 04/26/22 (unknown) (no (unknown) (unknown) tobacco type: (units ( unknown) date) cigarettes unknown) (unknown) (no (unknown) (unknown) valacyclovir 1 (units (unknown) date) gram tablet 1 mg unknown) PO QAM 04/26/22 04/26/22 (unknown) (no (unknown) (unknown) valacyclovir 1 (units (unknown) date) gram tablet unknown) (unknown) (no (unknown) (unknown) with HandiHaler) (units (unknown) date) unknown) (unknown) (no (unknown) (unknown) with inhalation (units (unknown) date) device (Spiriva unknown) Result panel 4 (unknown) (no (unknown) (unknown) (no value) (units (unk nown) date) unknown) (unknown) (no (unknown) (unknown) (More??) (units (unkno wn) date) unknown) (unknown) (no (unknown) (unknown) (Scale Score 4-6) (units (unknown) date) unknown) (unknown) (no (unknown) (unknown) 11/03/21 (units (unkno wn) date) unknown) (unknown) (no (unknown) (unknown) 12/04/19 (units (unkno wn) date) unknown) (unknown) (no (unknown) (unknown) 12/12/19 (units (unkno wn) date) unknown) (unknown) (no (unknown) (unknown) [id number] (units (unkno wn) date) unknown) (unknown) (no (unknown) (unknown) 03/03/22 (units (unkno wn) date) unknown) (unknown) (no (unknown) (unknown) 04/26/22 (units (unkno wn) date) unknown) (unknown) (no (unknown) (unknown) 06/12/22 21:48 (units (unknown) date) unknown) (unknown) (no (unknown) (unknown) 06/12/22 22:20 (units (unknown) date) unknown) (unknown) (no (unknown) (unknown) 06/12/22 (units (unkno wn) date) unknown) (unknown) (no (unknown) (unknown) 1 applic topical (units (unknown) date) BID Qty: 14 0RF unknown) (unknown) (no (unknown) (unknown) 1 cap INHALATION (units (unknown) date) DAILY unknown) (unknown) (no (unknown) (unknown) 1 mg PO DAILY (units ( unknown) date) unknown) (unknown) (no (unknown) (unknown) 1 mg PO QAM (units (un known) date) unknown) (unknown) (no (unknown) (unknown) 1 patch topical (units (unknown) date) PRN PRN (Reason: unknown) Pain (Scale Score 4-6)) (unknown) (no (unknown) (unknown) 1 tab PO Q3H PRN (units (unknown) date) (Reason: Pain unknown) (Scale Score 4-6)) (unknown) (no (unknown) (unknown) 10 mg PO DAILY (units (unknown) date) unknown) (unknown) (no (unknown) (unknown) 100 mg PO BID (units ( unknown) date) unknown) (unknown) (no (unknown) (unknown) 120 mg PO DAILY (units (unknown) date) unknown) (unknown) (no (unknown) (unknown) [address] [place] [address] (units (unknown) date) unknown) (unknown) (no (unknown) (unknown) 2 puff INHALATION (units (unknown) date) Q4-6H PRN (Reason: unknown) Shortness Of Breath) (unknown) (no (unknown) (unknown) 200 mg PO DAILY (units (unknown) date) Qty: 7 0RF unknown) (unknown) (no (unknown) (unknown) 21:41 (units (unkno wn) date) unknown) (unknown) (no (unknown) (unknown) 40 mg PO QAM PRN (units (unknown) date) (Reason: Acid unknown) Reflux) (unknown) (no (unknown) (unknown) 40 mg PO QAM (units (u nknown) date) unknown) (unknown) (no (unknown) (unknown) 500 mg PO BID PRN (units (unknown) date) (Reason: unknown) Hyperglycemia) (unknown) (no (unknown) (unknown) ? (units (unkno wn) date) unknown) (unknown) (no (unknown) (unknown) Accession Number: (units (unknown) date) [id number] ?? unknown) (unknown) (no (unknown) (unknown) Accession Number: (units (unknown) date) [id number] ?? unknown) (unknown) (no (unknown) (unknown) Accession Number: (units (unknown) date) [id number] ?? unknown) (unknown) (no (unknown) (unknown) Accession Number: (units (unknown) date) [id number] ?? unknown) (unknown) (no (unknown) (unknown) Acct:[id number] (units (unknown) date) unknown) (unknown) (no (unknown) (unknown) AcipHex Sprinkle (units (unknown) date) 5 mg Capsule, unknown) Delayed Rel Sprinkle (unknown) (no (unknown) (unknown) Age/Sex: 52 / F (units (unknown) date) unknown) (unknown) (no (unknown) (unknown) Allergies (units (unkn own) date) unknown) (unknown) (no (unknown) (unknown) Allergy/AdvReac (units (unknown) date) Type Severity unknown) Reaction Status Date / Time (unknown) (no (unknown) (unknown) [place], [place] (units ( unknown) date) [id number] unknown) (unknown) (no (unknown) (unknown) Antibiotics) (units (u nknown) date) unknown) (unknown) (no (unknown) (unknown) Approved by: (units (u nknown) date) Calin Burks unknown) M.D. on 06/12/2022 at 22:22 ? (unknown) (no (unknown) (unknown) Approved by: (units (u nknown) date) Calin Burks unknown) M.D. on 06/12/2022 at 22:23 ? (unknown) (no (unknown) (unknown) Approved by: (units (u nknown) date) Calin Burks unknown) M.D. on 06/12/2022 at 23:05 ? (unknown) (no (unknown) (unknown) Approved by: (units (u nknown) date) Calin Burks unknown) M.D. on 06/12/2022 at 23:07 ? (unknown) (no (unknown) (unknown) Asthma (units (unkno wn) date) unknown) (unknown) (no (unknown) (unknown) Blood Pressure (units (unknown) date) 133/80 06/12/22 unknown) 21:41 (unknown) (no (unknown) (unknown) Blood Pressure (units (unknown) date) 133/80 unknown) (unknown) (no (unknown) (unknown) Bones:? No (units (unk nown) date) fractures or unknown) dislocations.? No suspicious bony lesions.? Visualized (unknown) (no (unknown) (unknown) Bones:? No (units (unk nown) date) fractures or unknown) dislocations.? No suspicious bony lesions.? (unknown) (no (unknown) (unknown) Bones:? No trauma (units (unknown) date) found. unknown) (unknown) (no (unknown) (unknown) Bones:? There is (units (unknown) date) normal bony unknown) alignment.? No acute vertebral body compression (unknown) (no (unknown) (unknown) Breathing (units (unkn own) date) unknown) (unknown) (no (unknown) (unknown) COMPARISON:? (units (u nknown) date) [facility], unknown) CR, XR SHOULDER LT MIN 2V, 03/03/2022, 17:40.? (unknown) (no (unknown) (unknown) COMPARISON:? (units (u nknown) date) [facility], unknown) CR, XR SHOULDER LT MIN 2V, 06/12/2022, 22:07. (unknown) (no (unknown) (unknown) COMPARISON:? (units (u nknown) date) None. unknown) (unknown) (no (unknown) (unknown) CT Scan Report (units (unknown) date) unknown) (unknown) (no (unknown) (unknown) CT lumbar spine (units (unknown) date) wo con Stat unknown) (unknown) (no (unknown) (unknown) CT pelvis wo con (units (unknown) date) Stat unknown) (unknown) (no (unknown) (unknown) CT scan - (units (unkn own) date) abdomen/pelvis: unknown) (unknown) (no (unknown) (unknown) Chief Complaint: (units (unknown) date) Fall unknown) (unknown) (no (unknown) (unknown) Chronic anemia (units (unknown) date) unknown) (unknown) (no (unknown) (unknown) Close (units (unkno wn) date) unknown) (unknown) (no (unknown) (unknown) Course (units (unkno wn) date) unknown) (unknown) (no (unknown) (unknown) : 1970 (units (unknown) date) Acct:[id number] unknown) (unknown) (no (unknown) (unknown) : 1970 (units (unknown) date) unknown) (unknown) (no (unknown) (unknown) Date of Service: (units (unknown) date) 06/12/22 unknown) (unknown) (no (unknown) (unknown) Departure (units (unkn own) date) unknown) (unknown) (no (unknown) (unknown) Diabetes (units (unkno wn) date) mellitus, type 2 unknown) (unknown) (no (unknown) (unknown) Dictated by: (units (u nknown) date) Calin Burks, lindsey) Artemio on 06/12/2022 at 22:22 ? ? (unknown) (no (unknown) (unknown) Dictated by: (units (u nknown) date) lindsey Jackson) Artemio on 06/12/2022 at 22:23 ? ? (unknown) (no (unknown) (unknown) Dictated by: (units (u nknown) date) lindsey Jackson) Artemio on 06/12/2022 at 23:04 ? ? (unknown) (no (unknown) (unknown) Dictated by: (units (u nknown) date) Calin Burks unknown) Artemio on 06/12/2022 at 23:06 ? ? (unknown) (no (unknown) (unknown) Discharge Plan (units (unknown) date) unknown) (unknown) (no (unknown) (unknown) Nikolai Gray, (units (unknown) date) [Primary Care unknown) Provider] (unknown) (no (unknown) (unknown) ED Orders (units (unkn own) date) unknown) (unknown) (no (unknown) (unknown) ER Physician: (units ( unknown) date) Robert Zurita D.O. unknown) (unknown) (no (unknown) (unknown) Emergency Report (units (unknown) date) unknown) (unknown) (no (unknown) (unknown) Exam (units (unkno wn) date) unknown) (unknown) (no (unknown) (unknown) Extremity x-ray (units (unknown) date) #1: unknown) (unknown) (no (unknown) (unknown) FINDINGS:? (units (unk nown) date) unknown) (unknown) (no (unknown) (unknown) Fibromyalgia (units (u nknown) date) unknown) (unknown) (no (unknown) (unknown) General (units (unkno wn) date) unknown) (unknown) (no (unknown) (unknown) Letha Wolff (units ( unknown) date) unknown) (unknown) (no (unknown) (unknown) HPI - Fall (units (unk nown) date) unknown) (unknown) (no (unknown) (unknown) Calin Burks (units (unknown) date) unknown) (unknown) (no (unknown) (unknown) History of (units (unk nown) date) arthroscopy of unknown) right shoulder (03/08/21) (unknown) (no (unknown) (unknown) History of carpal (units (unknown) date) tunnel release unknown) (unknown) (no (unknown) (unknown) Home Medications (units (unknown) date) unknown) (unknown) (no (unknown) (unknown) Hospital, CR, XR (units (unknown) date) SHOULDER RT MIN unknown) 2V, 12/12/2019, 14:16. (unknown) (no (unknown) (unknown) Hx of abdominal [...] surgery unknown) (unknown) (no (unknown) (unknown) IMPRESSION:? No (units (unknown) date) trauma found, mild unknown) degenerative disc disease is seen with disc (unknown) (no (unknown) (unknown) IMPRESSION:? No (units (unknown) date) trauma found. unknown) (unknown) (no (unknown) (unknown) IMPRESSION:? No (units (unknown) date) trauma identified. unknown) (unknown) (no (unknown) (unknown) INDICATIONS:? (units ( unknown) date) fall with midline unknown) back pain (unknown) (no (unknown) (unknown) INDICATIONS:? (units ( unknown) date) fall with severe unknown) left hip pain (unknown) (no (unknown) (unknown) INDICATIONS:? (units ( unknown) date) fall unknown) (unknown) (no (unknown) (unknown) Image quality:? (units (unknown) date) Excellent.? unknown) (unknown) (no (unknown) (unknown) Imaging Data (units (u nknown) date) unknown) (unknown) (no (unknown) (unknown) Initial Vital (units ( unknown) date) Signs unknown) (unknown) (no (unknown) (unknown) Initial Vital (units ( unknown) date) Signs: unknown) (unknown) (no (unknown) (unknown) [facility] (units (unknown) date) [address] unknown) [place] [address] (unknown) (no (unknown) (unknown) [facility] (units (unknown) date) unknown) (unknown) (no (unknown) (unknown) [place] (units (unkno wn) date) unknown) (unknown) (no (unknown) (unknown) [facility] (units (unknown) date) unknown) (unknown) (no (unknown) (unknown) Knee X-Ray (units (unk nown) date) (Signed) unknown) (unknown) (no (unknown) (unknown) Label Comments: (units (unknown) date) unknown) (unknown) (no (unknown) (unknown) Launch?Image (units (u nknown) date) unknown) (unknown) (no (unknown) (unknown) [facility] [place] (units (unkno wn) date) unknown) (unknown) (no (unknown) (unknown) Loc: ED (units (unkno wn) date) unknown) (unknown) (no (unknown) (unknown) Lumbar CT: (units (unk nown) date) unknown) (unknown) (no (unknown) (unknown) Lumbar Spine CT (units (unknown) date) (Signed) unknown) (unknown) (no (unknown) (unknown) Lupus (units (unkno wn) date) unknown) (unknown) (no (unknown) (unknown) MDM - Fall (units (unk nown) date) unknown) (unknown) (no (unknown) (unknown) MR#: [id number] (units (unknown) date) unknown) (unknown) (no (unknown) (unknown) Medical History (units (unknown) date) (Reviewed 04/26/22 unknown) @ 09:40 by Tila Desai DO) (unknown) (no (unknown) (unknown) Medication (units (unk nown) date) Instructions unknown) Recorded Confirmed (unknown) (no (unknown) (unknown) Medication (units (unk nown) date) Instructions unknown) Recorded (unknown) (no (unknown) (unknown) 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 No pars defects.? (unknown) (no (unknown) (unknown) Noncontrast 3 mm (units (unknown) date) axial sections unknown) acquired through the bony pelvis, with coronal (unknown) (no (unknown) (unknown) Noncontrast 3 mm (units (unknown) date) thick sections unknown) acquired from the T12 level to the sacrum.? (unknown) (no (unknown) (unknown) Obesity, morbid, (units (unknown) date) BMI 50 or higher unknown) (unknown) (no (unknown) (unknown) Ordered: (units (unkno wn) date) unknown) (unknown) (no (unknown) (unknown) Ordering (units (unkno wn) date) Provider: unknown) Robert Zurita D.O. (unknown) (no (unknown) (unknown) Orders (units (unkno wn) date) unknown) (unknown) (no (unknown) (unknown) Osteoarthritis (units (unknown) date) unknown) (unknown) (no (unknown) (unknown) Oxygen Delivery (units (unknown) date) Method 06/12/22 unknown) 21:41 (unknown) (no (unknown) (unknown) Oxygen Delivery (units (unknown) date) Method Room Air unknown) (unknown) (no (unknown) (unknown) PROCEDURE:? CT (units (unknown) date) LUMBAR SPINE WO unknown) CON (unknown) (no (unknown) (unknown) PROCEDURE:? CT (units (unknown) date) PEL WO CON unknown) (unknown) (no (unknown) (unknown) PROCEDURE:? XR (units (unknown) date) PELVIS 1-2V unknown) (unknown) (no (unknown) (unknown) PROCEDURE:? XR (units (unknown) date) SHOULDER LT MIN 2V unknown) (unknown) (no (unknown) (unknown) Pain (units (unkno wn) date) unknown) (unknown) (no (unknown) (unknown) Patient History (units (unknown) date) unknown) (unknown) (no (unknown) (unknown) Patient: (units (unkno wn) date) Rosa Ramon unknown) MR#: [id number] (unknown) (no (unknown) (unknown) Patient: (units (unkno wn) date) Rosa Ramon unknown) (unknown) (no (unknown) (unknown) Pelvis CT (units (unkn own) date) (Signed) unknown) (unknown) (no (unknown) (unknown) Pelvis X-Ray (units (u nknown) date) (Signed) unknown) (unknown) (no (unknown) (unknown) Pelvis: (units (unkno wn) date) unknown) (unknown) (no (unknown) (unknown) Penicillins (units (un known) date) Allergy Severe unknown) Difficulty Verified 06/12/22 21:48 (unknown) (no (unknown) (unknown) Prescriptions: (units (unknown) date) unknown) (unknown) (no (unknown) (unknown) Previous Rx's (units ( unknown) date) unknown) (unknown) (no (unknown) (unknown) Procedure: CT (units ( unknown) date) lumbar spine wo unknown) con (unknown) (no (unknown) (unknown) Procedure: CT (units ( unknown) date) pelvis wo con unknown) (unknown) (no (unknown) (unknown) Procedure: XR (units ( unknown) date) pelvis 1-2V unknown) (unknown) (no (unknown) (unknown) Procedure: XR (units ( unknown) date) shoulder LT min 2V unknown) (unknown) (no (unknown) (unknown) Psoriatic (units (unkn own) date) arthritis unknown) (unknown) (no (unknown) (unknown) Pulse Oximetry 99 (units (unknown) date) 06/12/22 21:41 unknown) (unknown) (no (unknown) (unknown) Pulse Oximetry 99 (units (unknown) date) unknown) (unknown) (no (unknown) (unknown) Pulse Rate 82 (units ( unknown) date) 06/12/22 21:41 unknown) (unknown) (no (unknown) (unknown) Pulse Rate 82 (units ( unknown) date) unknown) (unknown) (no (unknown) (unknown) Radiologist's (units ( unknown) date) Impression: unknown) (unknown) (no (unknown) (unknown) Referrals: (units (unk nown) date) unknown) (unknown) (no (unknown) (unknown) Related Data (units (u nknown) date) unknown) (unknown) (no (unknown) (unknown) Respiratory Rate (units (unknown) date) 20 06/12/22 21:41 unknown) (unknown) (no (unknown) (unknown) Respiratory Rate (units (unknown) date) 20 unknown) (unknown) (no (unknown) (unknown) Rexulti 2 mg (units (u nknown) date) Tablet unknown) (unknown) (no (unknown) (unknown) Sagittal and (units (u nknown) date) unknown) (unknown) (no (unknown) (unknown) Shoulder X-Ray (units (unknown) date) (Signed) unknown) (unknown) (no (unknown) (unknown) Signed By: (units (unk nown) date) unknown) (unknown) (no (unknown) (unknown) Signed (units (unkno wn) date) unknown) (unknown) (no (unknown) (unknown) Smoking Status: (units (unknown) date) Current every day unknown) smoker (unknown) (no (unknown) (unknown) Social History (units (unknown) date) (Reviewed 04/26/22 unknown) @ 09:40 by Tila Desai DO) (unknown) (no (unknown) (unknown) Soft tissues:? No (units (unknown) date) hematoma or unknown) evidence soft tissue contusion found. (unknown) (no (unknown) (unknown) Soft tissues:? No (units (unknown) date) retroperitoneal unknown) masses or hematomas.? Visualized aorta is (unknown) (no (unknown) (unknown) Soft tissues:? No (units (unknown) date) suspicious soft unknown) tissue calcifications.? (unknown) (no (unknown) (unknown) Soft tissues:? (units (unknown) date) Visualized bowel unknown) gas pattern is normal.? No suspicious soft (unknown) (no (unknown) (unknown) Source: EMS (units (un known) date) unknown) (unknown) (no (unknown) (unknown) Spiriva with (units (u nknown) date) HandiHaler 18 mcg unknown) Capsule, W/Inhalation Device (unknown) (no (unknown) (unknown) Stated Complaint: (units (unknown) date) rt shoulder pain unknown) (unknown) (no (unknown) (unknown) Substance Use (units ( unknown) date) Type: does not use unknown) (unknown) (no (unknown) (unknown) Sulfa (units (unkno wn) date) (Sulfonamide unknown) AdvReac Intermediate Joint Pain Verified 06/12/22 21:48 (unknown) (no (unknown) (unknown) Surgical History (units (unknown) date) (Reviewed 04/26/22 unknown) @ 09:40 by Tila Desai DO) (unknown) (no (unknown) (unknown) TABLETS . (units (unkn own) date) unknown) (unknown) (no (unknown) (unknown) TAKE 1 TABLET BY (units (unknown) date) MOUTH DAILY unknown) (unknown) (no (unknown) (unknown) TAKE 1 TABLET BY (units (unknown) date) MOUTH EVERY 4 TO 6 unknown) HOURS NEEDED . MAXIMUM DAILY DOSE IS 5 (unknown) (no (unknown) (unknown) TAKE 1 TABLET BY (units (unknown) date) MOUTH EVERY DAY unknown) (unknown) (no (unknown) (unknown) TECHNIQUE:? 3 (units ( unknown) date) views of the unknown) shoulder were acquired.? (unknown) (no (unknown) (unknown) TECHNIQUE:? (units (un known) date) Single view(s) of unknown) the pelvis acquired.? (unknown) (no (unknown) (unknown) TECHNIQUE:? (units (un known) date) unknown) (unknown) (no (unknown) (unknown) Telemetry Strips (units (unknown) date) unknown) (unknown) (no (unknown) (unknown) Temperature 98.6 (units (unknown) date) F 06/12/22 21:41 unknown) (unknown) (no (unknown) (unknown) Temperature 98.6 (units (unknown) date) F unknown) (unknown) (no (unknown) (unknown) Time Seen by (units (u nknown) date) Provider: 06/12/22 unknown) 22:18 (unknown) (no (unknown) (unknown) Upper Extremity (units (unknown) date) CT (Signed) unknown) (unknown) (no (unknown) (unknown) Vital Signs - 8 (units (unknown) date) hr unknown) (unknown) (no (unknown) (unknown) Vital Signs (units (un known) date) unknown) (unknown) (no (unknown) (unknown) Vital signs: (units (u nknown) date) unknown) (unknown) (no (unknown) (unknown) XR pelvis 1-2V (units (unknown) date) Stat unknown) (unknown) (no (unknown) (unknown) XR shoulder LT (units (unknown) date) min 2V Stat unknown) (unknown) (no (unknown) (unknown) XRay Report (units (un known) date) unknown) (unknown) (no (unknown) (unknown) aerosol inhaler (units (unknown) date) Shortness Of unknown) Breath (unknown) (no (unknown) (unknown) albuterol sulfate (units (unknown) date) 90 mcg/actuation 2 unknown) puff inhalation Q4-6H PRN 03/05/21 04/26/22 (unknown) (no (unknown) (unknown) albuterol sulfate (units (unknown) date) 90 mcg/actuation unknown) Hfa Aerosol Inhaler (unknown) (no (unknown) (unknown) alcohol intake (units (unknown) date) frequency: unknown) holidays/special occasions only (unknown) (no (unknown) (unknown) alcohol intake: (units (unknown) date) current unknown) (unknown) (no (unknown) (unknown) alprazolam 3 mg (units (unknown) date) tablet,extended 1 unknown) mg PO DAILY 03/05/21 04/26/22 (unknown) (no (unknown) (unknown) alprazolam [Xanax (units (unknown) date) XR] 3 mg Tablet unknown) Extended Release 24 Hr (unknown) (no (unknown) (unknown) and (units (unkno wn) date) unknown) (unknown) (no (unknown) (unknown) appear intact.? (units (unknown) date) unknown) (unknown) (no (unknown) (unknown) brexpiprazole 2 (units (unknown) date) mg tablet unknown) (Rexulti) 1 mg PO DAILY 03/05/21 04/26/22 (unknown) (no (unknown) (unknown) calcifications.? (units (unknown) date) unknown) (unknown) (no (unknown) (unknown) caliber.? (units (unkn own) date) unknown) (unknown) (no (unknown) (unknown) [place] Allergy (units (unknown) date) Severe Difficulty unknown) Verified 06/12/22 21:48 (unknown) (no (unknown) (unknown) coronal reformats (units (unknown) date) were constructed.? unknown) For radiation dose reduction, the following (unknown) (no (unknown) (unknown) dipyridamole (units (u nknown) date) AdvReac unknown) Intermediate Joint Pain Verified 06/12/22 21:48 (unknown) (no (unknown) (unknown) eggshell membrane (units (unknown) date) Allergy unknown) Intermediate Abdominal Uncoded 03/08/21 07:16 (unknown) (no (unknown) (unknown) eucalyptus (units (unk nown) date) Allergy Severe unknown) Difficulty Verified 06/12/22 21:48 (unknown) (no (unknown) (unknown) fluconazole 200 (units (unknown) date) mg tablet 200 mg unknown) PO DAILY #7 tabs 04/27/22 (unknown) (no (unknown) (unknown) fluconazole 200 (units (unknown) date) mg tablet unknown) (unknown) (no (unknown) (unknown) fractures.? (units (un known) date) unknown) (unknown) (no (unknown) (unknown) furosemide 40 mg (units (unknown) date) tablet (Lasix) 120 unknown) mg PO DAILY 03/05/21 04/26/22 (unknown) (no (unknown) (unknown) furosemide (units (unk nown) date) [Lasix] 40 mg unknown) Tablet (unknown) (no (unknown) (unknown) height (units (unkno wn) date) unknown) (unknown) (no (unknown) (unknown) household (units (unkn own) date) members: family unknown) (unknown) (no (unknown) (unknown) impingement. (units (u nknown) date) unknown) (unknown) (no (unknown) (unknown) ketorolac [From (units (unknown) date) Toradol] Allergy unknown) Verified 06/12/22 21:48 (unknown) (no (unknown) (unknown) lidocaine 5 % (units ( unknown) date) adhesive unknown) patch,medicated (unknown) (no (unknown) (unknown) lidocaine 5 % (units ( unknown) date) topical patch 1 unknown) patch topical PRN PRN Pain 04/26/22 04/26/22 (unknown) (no (unknown) (unknown) lisinopril 10 mg (units (unknown) date) Tablet unknown) (unknown) (no (unknown) (unknown) lisinopril 10 mg (units (unknown) date) tablet 10 mg PO unknown) DAILY 03/05/21 04/26/22 (unknown) (no (unknown) (unknown) metformin 500 mg (units (unknown) date) Tablet unknown) (unknown) (no (unknown) (unknown) metformin 500 mg (units (unknown) date) tablet 500 mg PO unknown) BID PRN Hyperglycemia 03/05/21 04/26/22 (unknown) (no (unknown) (unknown) mg tablet 4-6) (units (unknown) date) unknown) (unknown) (no (unknown) (unknown) naproxen AdvReac (units (unknown) date) Intermediate Joint unknown) Pain Verified 06/12/22 21:48 (unknown) (no (unknown) (unknown) normal in (units (unkn own) date) unknown) (unknown) (no (unknown) (unknown) nystatin 100,000 (units (unknown) date) unit/gram topical unknown) 1 applic topical BID #14 grams 04/27/22 (unknown) (no (unknown) (unknown) nystatin [Nystop] (units (unknown) date) 100,000 unit/gram unknown) Powder (unknown) (no (unknown) (unknown) oxycodone-acetami (units (unknown) date) nophen 10 mg-325 1 unknown) tab PO Q3H PRN Pain (Scale Score 04/26/22 (unknown) (no (unknown) (unknown) oxycodone-acetami (units (unknown) date) nophen 10-325 mg unknown) tablet (unknown) (no (unknown) (unknown) pantoprazole 40 mg (units (unknown) date) tablet,delayed 40 unknown) mg PO QAM PRN Acid Reflux 04/26/22 04/26/22 (unknown) (no (unknown) (unknown) pantoprazole 40 (units (unknown) date) mg tablet,delayed unknown) release (DR/EC) (unknown) (no (unknown) (unknown) powder (Nystop) (units (unknown) date) unknown) (unknown) (no (unknown) (unknown) pseudoephedrine (units (unknown) date) AdvReac unknown) Intermediate Joint Pain Verified 06/12/22 21:48 (unknown) (no (unknown) (unknown) rabeprazole 5 mg (units (unknown) date) capsule,delayed 40 unknown) mg PO QAM 03/05/21 04/26/22 (unknown) (no (unknown) (unknown) reduction present (units (unknown) date) at L4-5 and L5-S1 unknown) but without subluxation or definite nerve (unknown) (no (unknown) (unknown) release 24 hr (units ( unknown) date) (Xanax XR) unknown) (unknown) (no (unknown) (unknown) release sprinkle (units (unknown) date) (AcipHex Sprinkle) unknown) (unknown) (no (unknown) (unknown) release (units (unkno wn) date) unknown) (unknown) (no (unknown) (unknown) ribs (units (unkno wn) date) unknown) (unknown) (no (unknown) (unknown) root (units (unkno wn) date) unknown) (unknown) (no (unknown) (unknown) roxen, (units (unkno wn) date) pseudoephedrine, unknown) Sulfa (Sulfonamide Antibiotics), [eggshell membrane] (unknown) (no (unknown) (unknown) sagittal (units (unkno wn) date) reformatting.? unknown) (unknown) (no (unknown) (unknown) sertraline 25 mg (units (unknown) date) tablet (Zoloft) unknown) 100 mg PO BID 03/05/21 04/26/22 (unknown) (no (unknown) (unknown) sertraline (units (unk nown) date) [Zoloft] 25 mg unknown) Tablet (unknown) (no (unknown) (unknown) tiotropium (units (unk nown) date) bromide 18 mcg unknown) capsule 1 cap inhalation DAILY 03/05/21 04/26/22 (unknown) (no (unknown) (unknown) tissue (units (unkno wn) date) unknown) (unknown) (no (unknown) (unknown) tobacco type: (units ( unknown) date) cigarettes unknown) (unknown) (no (unknown) (unknown) used:? automated (units (unknown) date) exposure control.? unknown) (unknown) (no (unknown) (unknown) valacyclovir 1 (units (unknown) date) gram tablet 1 mg unknown) PO QAM 04/26/22 04/26/22 (unknown) (no (unknown) (unknown) valacyclovir 1 (units (unknown) date) gram tablet unknown) (unknown) (no (unknown) (unknown) was (units (unkno wn) date) unknown) (unknown) (no (unknown) (unknown) with HandiHaler) (units (unknown) date) unknown) (unknown) (no (unknown) (unknown) with inhalation (units (unknown) date) device (Spiriva unknown) Result panel 5 (unknown) (no (unknown) (unknown) (no value) (units (unk nown) date) unknown) (unknown) (no (unknown) (unknown) ADDENDUM (units (u nknown) date) unknown) (unknown) (no (unknown) (unknown) [id number] (units (unkno wn) date) unknown) (unknown) (no (unknown) (unknown) 06/14/22 (units (unkno wn) date) unknown) (unknown) (no (unknown) (unknown) [address] (units (unknown) date) unknown) (unknown) (no (unknown) (unknown) 3rd view is now (units (unknown) date) merged to this unknown) exam. (unknown) (no (unknown) (unknown) ADDENDUM: (units (unkn own) date) unknown) (unknown) (no (unknown) (unknown) Accession Number: (units (unknown) date) [id number] unknown) (unknown) (no (unknown) (unknown) Addendum Cosigned (units (unknown) date) By: unknown) (unknown) (no (unknown) (unknown) Addendum Dictated (units (unknown) date) By: Jovanny Hannah MD unknown) (unknown) (no (unknown) (unknown) Addendum Signed (units (unknown) date) By: unknown) (unknown) (no (unknown) (unknown) Addendum (units (unkno wn) date) unknown) (unknown) (no (unknown) (unknown) Age/Sex: 52 / F (units (unknown) date) Date of Service: unknown) (unknown) (no (unknown) (unknown) [place], [place] (units ( unknown) date) [id number] unknown) (unknown) (no (unknown) (unknown) Approved by: Jovanny (units (unknown) date) Artemio Hannah on unknown) 06/14/2022 at 14:01 (unknown) (no (unknown) (unknown) Approved by: Jovanny (units (unknown) date) Artemio Hannah on unknown) 06/17/2022 at 9:56 (unknown) (no (unknown) (unknown) Bones: No (units (unkn own) date) fractures or unknown) dislocations. Severe tricompartmental osteophytosis. (unknown) (no (unknown) (unknown) COMPARISON: [facility] (units (unknown) date) [facility], CR, XR unknown) KNEE RT 3V, 03/03/2022, 17:40. (unknown) (no (unknown) (unknown) DD/DT: (units (unkno wn) date) 06/17/2212/07/954 unknown) (unknown) (no (unknown) (unknown) : 1970 (units (unknown) date) Acct:[id number] unknown) (unknown) (no (unknown) (unknown) Dictated by: Jovanny (units (unknown) date) Brielle, M.DAnni on unknown) 06/14/2022 at 13:59 (unknown) (no (unknown) (unknown) Dictated by: Jovanny (units (unknown) date) Call, M.DAnni on unknown) 06/17/2022 at 9:55 (unknown) (no (unknown) (unknown) FINDINGS: (units (unkn own) date) unknown) (unknown) (no (unknown) (unknown) IMPRESSION: (units (un known) date) unknown) (unknown) (no (unknown) (unknown) INDICATIONS: fall (units (unknown) date) unknown) (unknown) (no (unknown) (unknown) If concern for (units (unknown) date) occult fracture unknown) consider CT for further evaluation (unknown) (no (unknown) (unknown) [facility] (units (unknown) date) unknown) (unknown) (no (unknown) (unknown) Loc: ED (units (unkno wn) date) unknown) (unknown) (no (unknown) (unknown) No fracture (units (un known) date) identified. unknown) (unknown) (no (unknown) (unknown) Ordering Provider: (units (unknown) date) Andree Donald D.O. unknown) (unknown) (no (unknown) (unknown) PROCEDURE: XR KNEE (units (unknown) date) RT 1TO2V unknown) (unknown) (no (unknown) (unknown) Patient: (units (unkno wn) date) Rosa Ramon Jim unknown) MR#: [id number] (unknown) (no (unknown) (unknown) Procedure: XR knee (units (unknown) date) RT 1to2V unknown) (unknown) (no (unknown) (unknown) Procedure: XR knee (units (unknown) date) RT 3V unknown) (unknown) (no (unknown) (unknown) Severe (units (unkno wn) date) degenerative unknown) change. (unknown) (no (unknown) (unknown) Signed (units (unkno wn) date) unknown) (unknown) (no (unknown) (unknown) Soft tissues: (units ( unknown) date) Small joint unknown) effusion. No suspicious soft tissue calcifications. (unknown) (no (unknown) (unknown) TD/TT: (units (unkno wn) date) 06/17/2212/07/954 unknown) (unknown) (no (unknown) (unknown) TECHNIQUE: 2 views (units (unknown) date) of the knee were unknown) acquired. (unknown) (no (unknown) (unknown) There is (units (unkno wn) date) unknown) (unknown) (no (unknown) (unknown) This report (units (un known) date) includes an unknown) Addendum and supersedes previous reports for this exam. (unknown) (no (unknown) (unknown) XRay Report (units (un known) date) unknown) (unknown) (no (unknown) (unknown) joint space (units (un known) date) narrowing. No unknown) suspicious bony lesions. Result panel 6 (unknown) (no (unknown) (unknown) (no value) (units (unk nown) date) unknown) (unknown) (no (unknown) (unknown) (Scale Score 4-6) (units (unknown) date) unknown) (unknown) (no (unknown) (unknown) [id number] (units (unkno wn) date) unknown) (unknown) (no (unknown) (unknown) 04/26/22 (units (unkno wn) date) unknown) (unknown) (no (unknown) (unknown) 06/14/22 13:12 (units (unknown) date) unknown) (unknown) (no (unknown) (unknown) 06/14/22 14:09 (units (unknown) date) unknown) (unknown) (no (unknown) (unknown) 06/14/22 (units (unkno wn) date) unknown) (unknown) (no (unknown) (unknown) 1 applic topical (units (unknown) date) BID Qty: 14 0RF unknown) (unknown) (no (unknown) (unknown) 1 cap INHALATION (units (unknown) date) DAILY unknown) (unknown) (no (unknown) (unknown) 1 mg PO DAILY (units ( unknown) date) unknown) (unknown) (no (unknown) (unknown) 1 mg PO QAM (units (un known) date) unknown) (unknown) (no (unknown) (unknown) 1 patch topical PRN (unit s (unknown) date) PRN (Reason: Pain unknown) (Scale Score 4-6)) (unknown) (no (unknown) (unknown) 1 tab PO Q3H PRN (units (unknown) date) (Reason: Pain (Scale unknown) Score 4-6)) (unknown) (no (unknown) (unknown) 10 mg PO DAILY (units (unknown) date) unknown) (unknown) (no (unknown) (unknown) 100 mg PO BID (units ( unknown) date) unknown) (unknown) (no (unknown) (unknown) 120 mg PO DAILY (units (unknown) date) unknown) (unknown) (no (unknown) (unknown) 13:06 (units (unkno wn) date) unknown) (unknown) (no (unknown) (unknown) 2 puff INHALATION (units (unknown) date) Q4-6H PRN (Reason: unknown) Shortness Of Breath) (unknown) (no (unknown) (unknown) 200 mg PO DAILY (units (unknown) date) Qty: 7 0RF unknown) (unknown) (no (unknown) (unknown) 300 mg PO BEDTIME (units (unknown) date) Qty: 14 0RF unknown) (unknown) (no (unknown) (unknown) 40 mg PO QAM PRN (units (unknown) date) (Reason: Acid unknown) Reflux) (unknown) (no (unknown) (unknown) 40 mg PO QAM (units (u nknown) date) unknown) (unknown) (no (unknown) (unknown) 500 mg PO BID PRN (units (unknown) date) (Reason: unknown) Hyperglycemia) (unknown) (no (unknown) (unknown) AcipHex Sprinkle 5 (units (unknown) date) mg Capsule, Delayed unknown) Rel Sprinkle (unknown) (no (unknown) (unknown) Age/Sex: 52 / F (units (unknown) date) unknown) (unknown) (no (unknown) (unknown) Allergies (units (unkn own) date) unknown) (unknown) (no (unknown) (unknown) Allergy/AdvReac (units (unknown) date) Type Severity unknown) Reaction Status Date / Time (unknown) (no (unknown) (unknown) Antibiotics) (units (u nknown) date) unknown) (unknown) (no (unknown) (unknown) Asthma (units (unkno wn) date) unknown) (unknown) (no (unknown) (unknown) Blood Pressure (units (unknown) date) 128/75 06/14/22 unknown) 13:06 (unknown) (no (unknown) (unknown) Blood Pressure (units (unknown) date) 128/75 unknown) (unknown) (no (unknown) (unknown) Breathing (units (unkn own) date) unknown) (unknown) (no (unknown) (unknown) Chief Complaint: (units (unknown) date) Extremity Injury, unknown) Lower (unknown) (no (unknown) (unknown) Chronic anemia (units (unknown) date) unknown) (unknown) (no (unknown) (unknown) Course (units (unkno wn) date) unknown) (unknown) (no (unknown) (unknown) : 1970 (units (unknown) date) Acct:[id number] unknown) (unknown) (no (unknown) (unknown) Date of Service: (units (unknown) date) 06/14/22 unknown) (unknown) (no (unknown) (unknown) Departure (units (unkn own) date) unknown) (unknown) (no (unknown) (unknown) Diabetes mellitus, (units (unknown) date) type 2 unknown) (unknown) (no (unknown) (unknown) Discharge Plan (units (unknown) date) unknown) (unknown) (no (unknown) (unknown) Discontinued (units (u nknown) date) Medications unknown) (unknown) (no (unknown) (unknown) Nikolai Gray MD (unit s (unknown) date) [Primary Care unknown) Provider] (unknown) (no (unknown) (unknown) ED Orders (units (unkn own) date) unknown) (unknown) (no (unknown) (unknown) ER Physician: (units ( unknown) date) Daija Rosales unknown) (unknown) (no (unknown) (unknown) Emergency Report (units (unknown) date) unknown) (unknown) (no (unknown) (unknown) Exam (units (unkno wn) date) unknown) (unknown) (no (unknown) (unknown) Fibromyalgia (units (u nknown) date) unknown) (unknown) (no (unknown) (unknown) General (units (unkno wn) date) unknown) (unknown) (no (unknown) (unknown) HPI - Extremity (units (unknown) date) Injury (Lower) unknown) (unknown) (no (unknown) (unknown) History of (units (unk nown) date) arthroscopy of right unknown) shoulder (03/08/21) (unknown) (no (unknown) (unknown) History of carpal (units (unknown) date) tunnel release unknown) (unknown) (no (unknown) (unknown) Home Medications (units (unknown) date) unknown) (unknown) (no (unknown) (unknown) Hx of abdominal (units (unknown) date) surgery unknown) (unknown) (no (unknown) (unknown) Hx of arthroscopic (units (unknown) date) knee surgery unknown) (unknown) (no (unknown) (unknown) Hx of (units (unkno wn) date) cholecystectomy unknown) (unknown) (no (unknown) (unknown) Hx of foot surgery (units (unknown) date) unknown) (unknown) (no (unknown) (unknown) Hx of lumbosacral (units (unknown) date) spine surgery unknown) (unknown) (no (unknown) (unknown) Hydromorphone HCl (units (unknown) date) (Hydromorphone 0.5 unknown) Mg Inj) 0.5 mg IV NOW ONE (unknown) (no (unknown) (unknown) Initial Vital Signs (unit s (unknown) date) unknown) (unknown) (no (unknown) (unknown) Initial Vital (units ( unknown) date) Signs: unknown) (unknown) (no (unknown) (unknown) [facility] (units (unknown) date) [address] unknown) [place] [address] (unknown) (no (unknown) (unknown) Label Comments: (units (unknown) date) unknown) (unknown) (no (unknown) (unknown) Lupus (units (unkno wn) date) unknown) (unknown) (no (unknown) (unknown) Medical History (units (unknown) date) (Reviewed 04/26/22 @ unknown) 09:40 by Tila Desai DO) (unknown) (no (unknown) (unknown) Medication (units (unk nown) date) Instructions unknown) Recorded Confirmed (unknown) (no (unknown) (unknown) Medication (units (unk nown) date) Instructions unknown) Recorded (unknown) (no (unknown) (unknown) 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, unknown) non-alcoholic (unknown) (no (unknown) (unknown) Mode of arrival: (units (unknown) date) EMS unknown) (unknown) (no (unknown) (unknown) No Action (units (unkn own) date) unknown) (unknown) (no (unknown) (unknown) Obesity, morbid, (units (unknown) date) BMI 50 or higher unknown) (unknown) (no (unknown) (unknown) Ordered: (units (unkno wn) date) unknown) (unknown) (no (unknown) (unknown) Orders (units (unkno wn) date) unknown) (unknown) (no (unknown) (unknown) Osteoarthritis (units (unknown) date) unknown) (unknown) (no (unknown) (unknown) Oxycodone/Acetamino (unit s (unknown) date) phen unknown) (Oxycodone/Acetamino phen 5/325 Tablet) 2 tab PO NOW ONE (unknown) (no (unknown) (unknown) Oxygen Delivery (units (unknown) date) Method 06/14/22 unknown) 13:06 (unknown) (no (unknown) (unknown) Oxygen Delivery (units (unknown) date) Method Room Air unknown) (unknown) (no (unknown) (unknown) Pain (units (unkno wn) date) unknown) (unknown) (no (unknown) (unknown) Patient History (units (unknown) date) unknown) (unknown) (no (unknown) (unknown) Patient: (units (unkno wn) date) Rosa Ramon MR#: unknown) M00 (unknown) (no (unknown) (unknown) Penicillins Allergy (unit s (unknown) date) Severe Difficulty unknown) Verified 06/12/22 21:48 (unknown) (no (unknown) (unknown) Prescriptions: (units (unknown) date) unknown) (unknown) (no (unknown) (unknown) Previous Rx's (units ( unknown) date) unknown) (unknown) (no (unknown) (unknown) Psoriatic arthritis (unit s (unknown) date) unknown) (unknown) (no (unknown) (unknown) Pulse Oximetry 95 (units (unknown) date) 06/14/22 13:06 unknown) (unknown) (no (unknown) (unknown) Pulse Oximetry 95 (units (unknown) date) unknown) (unknown) (no (unknown) (unknown) Pulse Rate 83 (units ( unknown) date) 06/14/22 13:06 unknown) (unknown) (no (unknown) (unknown) Pulse Rate 83 (units ( unknown) date) unknown) (unknown) (no (unknown) (unknown) Referrals: (units (unk nown) date) unknown) (unknown) (no (unknown) (unknown) Related Data (units (u nknown) date) unknown) (unknown) (no (unknown) (unknown) Respiratory Rate 19 (unit s (unknown) date) 06/14/22 13:06 unknown) (unknown) (no (unknown) (unknown) Respiratory Rate 19 (unit s (unknown) date) unknown) (unknown) (no (unknown) (unknown) Rexulti 2 mg Tablet (unit s (unknown) date) unknown) (unknown) (no (unknown) (unknown) Rx Instructions: (units (unknown) date) unknown) (unknown) (no (unknown) (unknown) See Rx Instructions (unit s (unknown) date) .ROUTE .COMPLEX Qty: unknown) 21 0RF (unknown) (no (unknown) (unknown) Signed By: (units (unk nown) date) unknown) (unknown) (no (unknown) (unknown) Smoking Status: (units (unknown) date) Current every day unknown) smoker (unknown) (no (unknown) (unknown) Social History (units (unknown) date) (Reviewed 04/26/22 @ unknown) 09:40 by Tila Desai DO) (unknown) (no (unknown) (unknown) Source: patient and (unit s (unknown) date) EMS unknown) (unknown) (no (unknown) (unknown) Spiriva with (units (u nknown) date) HandiHaler 18 mcg unknown) Capsule, W/Inhalation Device (unknown) (no (unknown) (unknown) Stated Complaint: R (unit s (unknown) date) Knee pain, fall unknown) (unknown) (no (unknown) (unknown) Stop: 06/14/22 (units (unknown) date) 14:05 unknown) (unknown) (no (unknown) (unknown) Stop: 06/14/22 (units (unknown) date) 14:10 unknown) (unknown) (no (unknown) (unknown) Substance Use Type: (unit s (unknown) date) does not use unknown) (unknown) (no (unknown) (unknown) Sulfa (Sulfonamide (units (unknown) date) AdvReac Intermediate unknown) Joint Pain Verified 06/12/22 21:48 (unknown) (no (unknown) (unknown) Surgical History (units (unknown) date) (Reviewed 04/26/22 @ unknown) 09:40 by Tila Desai DO) (unknown) (no (unknown) (unknown) TABLETS . (units (unkn own) date) unknown) (unknown) (no (unknown) (unknown) TAKE 1 TABLET BY (units (unknown) date) MOUTH DAILY unknown) (unknown) (no (unknown) (unknown) TAKE 1 TABLET BY (units (unknown) date) MOUTH EVERY 4 TO 6 unknown) HOURS NEEDED . MAXIMUM DAILY DOSE IS 5 (unknown) (no (unknown) (unknown) TAKE 1 TABLET BY (units (unknown) date) MOUTH EVERY DAY unknown) (unknown) (no (unknown) (unknown) Temperature 96.8 F (units (unknown) date) L 06/14/22 13:06 unknown) (unknown) (no (unknown) (unknown) Temperature 96.8 F (units (unknown) date) L unknown) (unknown) (no (unknown) (unknown) Time Seen by (units (u nknown) date) Provider: 06/14/22 unknown) 13:40 (unknown) (no (unknown) (unknown) Vital Signs - 8 hr (units (unknown) date) unknown) (unknown) (no (unknown) (unknown) Vital Signs (units (un known) date) unknown) (unknown) (no (unknown) (unknown) Vital signs: (units (u nknown) date) unknown) (unknown) (no (unknown) (unknown) XR knee RT 1to2V (units (unknown) date) Stat unknown) (unknown) (no (unknown) (unknown) XR knee RT 4V Stat (units (unknown) date) unknown) (unknown) (no (unknown) (unknown) a dose pack (Medrol (unit s (unknown) date) (Galdino)) #21 ea unknown) (unknown) (no (unknown) (unknown) aerosol inhaler (units (unknown) date) Shortness Of Breath unknown) (unknown) (no (unknown) (unknown) albuterol sulfate 90 (unit s (unknown) date) mcg/actuation 2 puff unknown) inhalation Q4-6H PRN 03/05/21 04/26/22 (unknown) (no (unknown) (unknown) albuterol sulfate (units (unknown) date) 90 mcg/actuation Hfa unknown) Aerosol Inhaler (unknown) (no (unknown) (unknown) alcohol intake (units (unknown) date) frequency: unknown) holidays/special occasions only (unknown) (no (unknown) (unknown) alcohol intake: (units (unknown) date) current unknown) (unknown) (no (unknown) (unknown) alprazolam 3 mg (units (unknown) date) tablet,extended 1 mg unknown) PO DAILY 03/05/21 04/26/22 (unknown) (no (unknown) (unknown) alprazolam [Xanax (units (unknown) date) XR] 3 mg Tablet unknown) Extended Release 24 Hr (unknown) (no (unknown) (unknown) brexpiprazole 2 mg (units (unknown) date) tablet (Rexulti) 1 unknown) mg PO DAILY 03/05/21 04/26/22 (unknown) (no (unknown) (unknown) c[place]wood Allergy (units (unknown) date) Severe Difficulty unknown) Verified 06/12/22 21:48 (unknown) (no (unknown) (unknown) dipyridamole (units (u nknown) date) AdvReac Intermediate unknown) Joint Pain Verified 06/12/22 21:48 (unknown) (no (unknown) (unknown) eggshell membrane (units (unknown) date) Allergy Intermediate unknown) Abdominal Uncoded 03/08/21 07:16 (unknown) (no (unknown) (unknown) eucalyptus Allergy (units (unknown) date) Severe Difficulty unknown) Verified 06/12/22 21:48 (unknown) (no (unknown) (unknown) fluconazole 200 mg (units (unknown) date) tablet 200 mg PO unknown) DAILY #7 tabs 04/27/22 (unknown) (no (unknown) (unknown) fluconazole 200 mg (units (unknown) date) tablet unknown) (unknown) (no (unknown) (unknown) furosemide 40 mg (units (unknown) date) tablet (Lasix) 120 unknown) mg PO DAILY 03/05/21 04/26/22 (unknown) (no (unknown) (unknown) furosemide [Lasix] (units (unknown) date) 40 mg Tablet unknown) (unknown) (no (unknown) (unknown) gabapentin 300 mg (units (unknown) date) capsule 300 mg PO unknown) BEDTIME #14 caps 06/12/22 (unknown) (no (unknown) (unknown) gabapentin 300 mg (units (unknown) date) capsule unknown) (unknown) (no (unknown) (unknown) household members: (units (unknown) date) family unknown) (unknown) (no (unknown) (unknown) ketorolac [From (units (unknown) date) Toradol] Allergy unknown) Verified 06/12/22 21:48 (unknown) (no (unknown) (unknown) lidocaine 5 % (units ( unknown) date) adhesive unknown) patch,medicated (unknown) (no (unknown) (unknown) lidocaine 5 % (units ( unknown) date) topical patch 1 unknown) patch topical PRN PRN Pain 04/26/22 04/26/22 (unknown) (no (unknown) (unknown) lisinopril 10 mg (units (unknown) date) Tablet unknown) (unknown) (no (unknown) (unknown) lisinopril 10 mg (units (unknown) date) tablet 10 mg PO unknown) DAILY 03/05/21 04/26/22 (unknown) (no (unknown) (unknown) metformin 500 mg (units (unknown) date) Tablet unknown) (unknown) (no (unknown) (unknown) metformin 500 mg (units (unknown) date) tablet 500 mg PO BID unknown) PRN Hyperglycemia 03/05/21 04/26/22 (unknown) (no (unknown) (unknown) methylprednisolone (units (unknown) date) 4 mg tablets in See unknown) Rx Instructions PO .COMPLEX 06/12/22 (unknown) (no (unknown) (unknown) methylprednisolone (units (unknown) date) [Medrol (Galdino)] 4 mg unknown) tablets,dose pack (unknown) (no (unknown) (unknown) mg tablet 4-6) (units (unknown) date) unknown) (unknown) (no (unknown) (unknown) naproxen AdvReac (units (unknown) date) Intermediate Joint unknown) Pain Verified 06/12/22 21:48 (unknown) (no (unknown) (unknown) nystatin 100,000 (units (unknown) date) unit/gram topical 1 unknown) applic topical BID #14 grams 04/27/22 (unknown) (no (unknown) (unknown) nystatin [Nystop] (units (unknown) date) 100,000 unit/gram unknown) Powder (unknown) (no (unknown) (unknown) orally per package (units (unknown) date) directions unknown) (unknown) (no (unknown) (unknown) oxycodone-acetamino (unit s (unknown) date) phen 10 mg-325 1 tab unknown) PO Q3H PRN Pain (Scale Score 04/26/22 (unknown) (no (unknown) (unknown) oxycodone-acetamino (unit s (unknown) date) phen 10-325 mg unknown) tablet (unknown) (no (unknown) (unknown) pantoprazole 40 mg (units (unknown) date) tablet,delayed 40 mg unknown) PO QAM PRN Acid Reflux 04/26/22 04/26/22 (unknown) (no (unknown) (unknown) pantoprazole 40 mg (units (unknown) date) tablet,delayed unknown) release (DR/EC) (unknown) (no (unknown) (unknown) powder (Nystop) (units (unknown) date) unknown) (unknown) (no (unknown) (unknown) pseudoephedrine (units (unknown) date) AdvReac Intermediate unknown) Joint Pain Verified 06/12/22 21:48 (unknown) (no (unknown) (unknown) rabeprazole 5 mg (units (unknown) date) capsule,delayed 40 unknown) mg PO QAM 03/05/21 04/26/22 (unknown) (no (unknown) (unknown) release 24 hr (units ( unknown) date) (Xanax XR) unknown) (unknown) (no (unknown) (unknown) release sprinkle (units (unknown) date) (AcipHex Sprinkle) unknown) (unknown) (no (unknown) (unknown) release (units (unkno wn) date) unknown) (unknown) (no (unknown) (unknown) sertraline 25 mg (units (unknown) date) tablet (Zoloft) 100 unknown) mg PO BID 03/05/21 04/26/22 (unknown) (no (unknown) (unknown) sertraline [Zoloft] (unit s (unknown) date) 25 mg Tablet unknown) (unknown) (no (unknown) (unknown) tiotropium bromide (units (unknown) date) 18 mcg capsule 1 cap unknown) inhalation DAILY 03/05/21 04/26/22 (unknown) (no (unknown) (unknown) tobacco type: (units ( unknown) date) cigarettes unknown) (unknown) (no (unknown) (unknown) valacyclovir 1 gram (unit s (unknown) date) tablet 1 mg PO QAM unknown) 04/26/22 04/26/22 (unknown) (no (unknown) (unknown) valacyclovir 1 gram (unit s (unknown) date) tablet unknown) (unknown) (no (unknown) (unknown) with HandiHaler) (units (unknown) date) unknown) (unknown) (no (unknown) (unknown) with inhalation (units (unknown) date) device (Spiriva unknown) Result panel 7 (unknown) (no (unknown) (unknown) (no value) (units (unk nown) date) unknown) (unknown) (no (unknown) (unknown) (Scale Score 4-6) (units (unknown) date) unknown) (unknown) (no (unknown) (unknown) [id number] (units (unkno wn) date) unknown) (unknown) (no (unknown) (unknown) 04/26/22 (units (unkno wn) date) unknown) (unknown) (no (unknown) (unknown) 06/14/22 13:12 (units (unknown) date) unknown) (unknown) (no (unknown) (unknown) 06/14/22 14:09 (units (unknown) date) unknown) (unknown) (no (unknown) (unknown) 06/14/22 (units (unkno wn) date) unknown) (unknown) (no (unknown) (unknown) 1 applic topical (units (unknown) date) BID Qty: 14 0RF unknown) (unknown) (no (unknown) (unknown) 1 cap INHALATION (units (unknown) date) DAILY unknown) (unknown) (no (unknown) (unknown) 1 mg PO DAILY (units ( unknown) date) unknown) (unknown) (no (unknown) (unknown) 1 mg PO QAM (units (un known) date) unknown) (unknown) (no (unknown) (unknown) 1 patch topical PRN (unit s (unknown) date) PRN (Reason: Pain unknown) (Scale Score 4-6)) (unknown) (no (unknown) (unknown) 1 tab PO Q3H PRN (units (unknown) date) (Reason: Pain (Scale unknown) Score 4-6)) (unknown) (no (unknown) (unknown) 10 mg PO DAILY (units (unknown) date) unknown) (unknown) (no (unknown) (unknown) 100 mg PO BID (units ( unknown) date) unknown) (unknown) (no (unknown) (unknown) 120 mg PO DAILY (units (unknown) date) unknown) (unknown) (no (unknown) (unknown) 13:06 (units (unkno wn) date) unknown) (unknown) (no (unknown) (unknown) 2 puff INHALATION (units (unknown) date) Q4-6H PRN (Reason: unknown) Shortness Of Breath) (unknown) (no (unknown) (unknown) 200 mg PO DAILY (units (unknown) date) Qty: 7 0RF unknown) (unknown) (no (unknown) (unknown) 300 mg PO BEDTIME (units (unknown) date) Qty: 14 0RF unknown) (unknown) (no (unknown) (unknown) 40 mg PO QAM PRN (units (unknown) date) (Reason: Acid unknown) Reflux) (unknown) (no (unknown) (unknown) 40 mg PO QAM (units (u nknown) date) unknown) (unknown) (no (unknown) (unknown) 500 mg PO BID PRN (units (unknown) date) (Reason: unknown) Hyperglycemia) (unknown) (no (unknown) (unknown) AcipHex Sprinkle 5 (units (unknown) date) mg Capsule, Delayed unknown) Rel Sprinkle (unknown) (no (unknown) (unknown) Age/Sex: 52 / F (units (unknown) date) unknown) (unknown) (no (unknown) (unknown) Allergies (units (unkn own) date) unknown) (unknown) (no (unknown) (unknown) Allergy/AdvReac (units (unknown) date) Type Severity unknown) Reaction Status Date / Time (unknown) (no (unknown) (unknown) Antibiotics) (units (u nknown) date) unknown) (unknown) (no (unknown) (unknown) Asthma (units (unkno wn) date) unknown) (unknown) (no (unknown) (unknown) Blood Pressure (units (unknown) date) 128/75 06/14/22 unknown) 13:06 (unknown) (no (unknown) (unknown) Blood Pressure (units (unknown) date) 128/ unknown) (unknown) (no (unknown) (unknown) Breathing (units (unkn own) date) unknown) (unknown) (no (unknown) (unknown) Cardiovascular: (units (unknown) date) regular rate and unknown) rhythm, no peripheral edema, warm extremities (unknown) (no (unknown) (unknown) Chief Complaint: (units (unknown) date) Extremity Injury, unknown) Lower (unknown) (no (unknown) (unknown) Chronic anemia (units (unknown) date) unknown) (unknown) (no (unknown) (unknown) Course (units (unkno wn) date) unknown) (unknown) (no (unknown) (unknown) : 1970 (units (unknown) date) Acct:[id number] unknown) (unknown) (no (unknown) (unknown) Date of Service: (units (unknown) date) 06/14/22 unknown) (unknown) (no (unknown) (unknown) Departure (units (unkn own) date) unknown) (unknown) (no (unknown) (unknown) Diabetes mellitus, (units (unknown) date) type 2 unknown) (unknown) (no (unknown) (unknown) Discharge Plan (units (unknown) date) unknown) (unknown) (no (unknown) (unknown) Discontinued (units (u nknown) date) Medications unknown) (unknown) (no (unknown) (unknown) Nikolai Gray MD (unit s (unknown) date) [Primary Care unknown) Provider] (unknown) (no (unknown) (unknown) ED Orders (units (unkn own) date) unknown) (unknown) (no (unknown) (unknown) ER Physician: (units ( unknown) date) Daija Rosales unknown) (unknown) (no (unknown) (unknown) Emergency Report (units (unknown) date) unknown) (unknown) (no (unknown) (unknown) Exam Narrative: (units (unknown) date) unknown) (unknown) (no (unknown) (unknown) Exam (units (unkno wn) date) unknown) (unknown) (no (unknown) (unknown) Fibromyalgia (units (u nknown) date) unknown) (unknown) (no (unknown) (unknown) GI: abdomen soft, (units (unknown) date) nontender to unknown) palpation, nondistended, without masses, rebound (unknown) (no (unknown) (unknown) General (units (unkno wn) date) unknown) (unknown) (no (unknown) (unknown) General: (units (unkno wn) date) cooperative, unknown) uncomfortable, in acute distress, dirty feet and lower (unknown) (no (unknown) (unknown) HEENT: symmetrical (units (unknown) date) facial expressions, unknown) moist mucous membranes (unknown) (no (unknown) (unknown) HPI - Extremity (units (unknown) date) Injury (Lower) unknown) (unknown) (no (unknown) (unknown) HPI Narrative: (units (unknown) date) unknown) (unknown) (no (unknown) (unknown) HPI (units (unkno wn) date) unknown) (unknown) (no (unknown) (unknown) History of Present (units (unknown) date) Illness unknown) (unknown) (no (unknown) (unknown) History of (units (unk nown) date) arthroscopy of right unknown) shoulder (03/08/21) (unknown) (no (unknown) (unknown) History of carpal (units (unknown) date) tunnel release unknown) (unknown) (no (unknown) (unknown) Home Medications (units (unknown) date) unknown) (unknown) (no (unknown) (unknown) Hx of abdominal (units (unknown) date) surgery unknown) (unknown) (no (unknown) (unknown) Hx of arthroscopic (units (unknown) date) knee surgery unknown) (unknown) (no (unknown) (unknown) Hx of (units (unkno wn) date) cholecystectomy unknown) (unknown) (no (unknown) (unknown) Hx of foot surgery (units (unknown) date) unknown) (unknown) (no (unknown) (unknown) Hx of lumbosacral (units (unknown) date) spine surgery unknown) (unknown) (no (unknown) (unknown) Hydromorphone HCl (units (unknown) date) (Hydromorphone 0.5 unknown) Mg Inj) 0.5 mg IV NOW ONE (unknown) (no (unknown) (unknown) Initial Vital Signs (unit s (unknown) date) unknown) (unknown) (no (unknown) (unknown) Initial Vital (units ( unknown) date) Signs: unknown) (unknown) (no (unknown) (unknown) [facility] (units (unknown) date) [address] [place] [address] unknown) [place] [address] (unknown) (no (unknown) (unknown) Label Comments: (units (unknown) date) unknown) (unknown) (no (unknown) (unknown) Lupus (units (unkno wn) date) unknown) (unknown) (no (unknown) (unknown) MRSA, anxiety, (units (unknown) date) depression, and unknown) chronic pain who presents to the emergency (unknown) (no (unknown) (unknown) MSK: moves all (units (unknown) date) extremities, unknown) neurovascularly intact, no weakness, normal tone, (unknown) (no (unknown) (unknown) Medical History (units (unknown) date) (Reviewed 06/14/22 @ unknown) 14:12 by LALIT Brennan) (unknown) (no (unknown) (unknown) Medication (units (unk nown) date) Instructions unknown) Recorded Confirmed (unknown) (no (unknown) (unknown) Medication (units (unk nown) date) Instructions unknown) Recorded (unknown) (no (unknown) (unknown) 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, unknown) non-alcoholic (unknown) (no (unknown) (unknown) Mode of arrival: (units (unknown) date) EMS unknown) (unknown) (no (unknown) (unknown) Narrative (units (unkn own) date) unknown) (unknown) (no (unknown) (unknown) Narrative: (units (unk nown) date) unknown) (unknown) (no (unknown) (unknown) Neuro: normal (units ( unknown) date) speech and unknown) cognition, A+O x3, ambulatory, clear speech (unknown) (no (unknown) (unknown) No Action (units (unkn own) date) unknown) (unknown) (no (unknown) (unknown) Obesity, morbid, (units (unknown) date) BMI 50 or higher unknown) (unknown) (no (unknown) (unknown) Ordered: (units (unkno wn) date) unknown) (unknown) (no (unknown) (unknown) Orders (units (unkno wn) date) unknown) (unknown) (no (unknown) (unknown) Osteoarthritis (units (unknown) date) unknown) (unknown) (no (unknown) (unknown) Oxycodone/Acetamino (unit s (unknown) date) phen unknown) (Oxycodone/Acetamino phen 5/325 Tablet) 2 tab PO NOW ONE (unknown) (no (unknown) (unknown) Oxygen Delivery (units (unknown) date) Method 06/14/22 unknown) 13:06 (unknown) (no (unknown) (unknown) Oxygen Delivery (units (unknown) date) Method Room Air unknown) (unknown) (no (unknown) (unknown) Pain (units (unkno wn) date) unknown) (unknown) (no (unknown) (unknown) Patient History (units (unknown) date) unknown) (unknown) (no (unknown) (unknown) Patient: (units (unkno wn) date) Rosa Ramon MR#: unknown) M00 (unknown) (no (unknown) (unknown) Penicillins Allergy (unit s (unknown) date) Severe Difficulty unknown) Verified 06/12/22 21:48 (unknown) (no (unknown) (unknown) Prescriptions: (units (unknown) date) unknown) (unknown) (no (unknown) (unknown) Previous Rx's (units ( unknown) date) unknown) (unknown) (no (unknown) (unknown) Psoriatic arthritis (unit s (unknown) date) unknown) (unknown) (no (unknown) (unknown) Psych: mental (units ( unknown) date) status is grossly unknown) normal, congruent mood, normal affect, pleasant (unknown) (no (unknown) (unknown) Pulse Oximetry 95 (units (unknown) date) 06/14/22 13:06 unknown) (unknown) (no (unknown) (unknown) Pulse Oximetry 95 (units (unknown) date) unknown) (unknown) (no (unknown) (unknown) Pulse Rate 83 (units ( unknown) date) 06/14/22 13:06 unknown) (unknown) (no (unknown) (unknown) Pulse Rate 83 (units ( unknown) date) unknown) (unknown) (no (unknown) (unknown) Referrals: (units (unk nown) date) unknown) (unknown) (no (unknown) (unknown) Related Data (units (u nknown) date) unknown) (unknown) (no (unknown) (unknown) Respiratory Rate 19 (unit s (unknown) date) 06/14/22 13:06 unknown) (unknown) (no (unknown) (unknown) Respiratory Rate 19 (unit s (unknown) date) unknown) (unknown) (no (unknown) (unknown) Respiratory: normal (unit s (unknown) date) effort, able to unknown) speak in complete sentences, without (unknown) (no (unknown) (unknown) Review of Systems (units (unknown) date) unknown) (unknown) (no (unknown) (unknown) Review of systems (units (unknown) date) is negative for unknown) acute abnormalities unless otherwise noted in (unknown) (no (unknown) (unknown) Reviewed vitals (units (unknown) date) signs and nursing unknown) notes. (unknown) (no (unknown) (unknown) Rexulti 2 mg Tablet (unit s (unknown) date) unknown) (unknown) (no (unknown) (unknown) Rx Instructions: (units (unknown) date) unknown) (unknown) (no (unknown) (unknown) See Rx Instructions (unit s (unknown) date) .ROUTE .COMPLEX Qty: unknown) 21 0RF (unknown) (no (unknown) (unknown) Signed By: (units (unk nown) date) unknown) (unknown) (no (unknown) (unknown) Skin: brisk (units (un known) date) capillary refill, unknown) without pallor or erythema (unknown) (no (unknown) (unknown) Smoking Status: (units (unknown) date) Current every day unknown) smoker (unknown) (no (unknown) (unknown) Social History (units (unknown) date) (Reviewed 06/14/22 @ unknown) 14:12 by LALIT Brennan) (unknown) (no (unknown) (unknown) Source: patient and (unit s (unknown) date) EMS unknown) (unknown) (no (unknown) (unknown) Spiriva with (units (u nknown) date) HandiHaler 18 mcg unknown) Capsule, W/Inhalation Device (unknown) (no (unknown) (unknown) Stated Complaint: R (unit s (unknown) date) Knee pain, fall unknown) (unknown) (no (unknown) (unknown) Stop: 06/14/22 (units (unknown) date) 14:05 unknown) (unknown) (no (unknown) (unknown) Stop: 06/14/22 (units (unknown) date) 14:10 unknown) (unknown) (no (unknown) (unknown) Substance Use Type: (unit s (unknown) date) does not use unknown) (unknown) (no (unknown) (unknown) Sulfa (Sulfonamide (units (unknown) date) AdvReac Intermediate unknown) Joint Pain Verified 06/12/22 21:48 (unknown) (no (unknown) (unknown) Surgical History (units (unknown) date) (Reviewed 06/14/22 @ unknown) 14:12 by LALIT Brennan) (unknown) (no (unknown) (unknown) TABLETS . (units (unkn own) date) unknown) (unknown) (no (unknown) (unknown) TAKE 1 TABLET BY (units (unknown) date) MOUTH DAILY unknown) (unknown) (no (unknown) (unknown) TAKE 1 TABLET BY (units (unknown) date) MOUTH EVERY 4 TO 6 unknown) HOURS NEEDED . MAXIMUM DAILY DOSE IS 5 (unknown) (no (unknown) (unknown) TAKE 1 TABLET BY (units (unknown) date) MOUTH EVERY DAY unknown) (unknown) (no (unknown) (unknown) Temperature 96.8 F (units (unknown) date) L 06/14/22 13:06 unknown) (unknown) (no (unknown) (unknown) Temperature 96.8 F (units (unknown) date) L unknown) (unknown) (no (unknown) (unknown) This is a (units (unkn own) date) 52-year-old female unknown) with history of diabetes, fibromyalgia, lupus,, (unknown) (no (unknown) (unknown) Time Seen by (units (u nknown) date) Provider: 06/14/22 unknown) 13:40 (unknown) (no (unknown) (unknown) Vital Signs - 8 hr (units (unknown) date) unknown) (unknown) (no (unknown) (unknown) Vital Signs (units (un known) date) unknown) (unknown) (no (unknown) (unknown) Vital signs: (units (u nknown) date) unknown) (unknown) (no (unknown) (unknown) XR knee RT 1to2V (units (unknown) date) Stat unknown) (unknown) (no (unknown) (unknown) XR knee RT 4V Stat (units (unknown) date) unknown) (unknown) (no (unknown) (unknown) a dose pack (Medrol (unit s (unknown) date) (Galdino)) #21 ea unknown) (unknown) (no (unknown) (unknown) able to dorsiflex (units (unknown) date) and plantar extend, unknown) no ankle pain or hip pain with range of (unknown) (no (unknown) (unknown) aerosol inhaler (units (unknown) date) Shortness Of Breath unknown) (unknown) (no (unknown) (unknown) albuterol sulfate 90 (unit s (unknown) date) mcg/actuation 2 puff unknown) inhalation Q4-6H PRN 03/05/21 04/26/22 (unknown) (no (unknown) (unknown) albuterol sulfate (units (unknown) date) 90 mcg/actuation Hfa unknown) Aerosol Inhaler (unknown) (no (unknown) (unknown) alcohol intake (units (unknown) date) frequency: unknown) holidays/special occasions only (unknown) (no (unknown) (unknown) alcohol intake: (units (unknown) date) current unknown) (unknown) (no (unknown) (unknown) alprazolam 3 mg (units (unknown) date) tablet,extended 1 mg unknown) PO DAILY 03/05/21 04/26/22 (unknown) (no (unknown) (unknown) alprazolam [Xanax (units (unknown) date) XR] 3 mg Tablet unknown) Extended Release 24 Hr (unknown) (no (unknown) (unknown) and cooperative (units (unknown) date) unknown) (unknown) (no (unknown) (unknown) and now complaining (unit s (unknown) date) patellar pain and unknown) surrounding pain. She states that pain is (unknown) (no (unknown) (unknown) any numbness or (units (unknown) date) tingling, any unknown) sensation changes, any open wounds, denies any (unknown) (no (unknown) (unknown) brexpiprazole 2 mg (units (unknown) date) tablet (Rexulti) 1 unknown) mg PO DAILY 03/05/21 04/26/22 (unknown) (no (unknown) (unknown) [place] Allergy (units (unknown) date) Severe Difficulty unknown) Verified 06/12/22 21:48 (unknown) (no (unknown) (unknown) department via EMS (units (unknown) date) for right knee unknown) injury. Patient states that she was on the (unknown) (no (unknown) (unknown) dipyridamole (units (u nknown) date) AdvReac Intermediate unknown) Joint Pain Verified 06/12/22 21:48 (unknown) (no (unknown) (unknown) due to pain. She (units (unknown) date) states that she has unknown) a history of degenerative joint disease in (unknown) (no (unknown) (unknown) eggshell membrane (units (unknown) date) Allergy Intermediate unknown) Abdominal Uncoded 03/08/21 07:16 (unknown) (no (unknown) (unknown) eucalyptus Allergy (units (unknown) date) Severe Difficulty unknown) Verified 06/12/22 21:48 (unknown) (no (unknown) (unknown) fluconazole 200 mg (units (unknown) date) tablet 200 mg PO unknown) DAILY #7 tabs 04/27/22 (unknown) (no (unknown) (unknown) fluconazole 200 mg (units (unknown) date) tablet unknown) (unknown) (no (unknown) (unknown) furosemide 40 mg (units (unknown) date) tablet (Lasix) 120 unknown) mg PO DAILY 03/05/21 04/26/22 (unknown) (no (unknown) (unknown) furosemide [Lasix] (units (unknown) date) 40 mg Tablet unknown) (unknown) (no (unknown) (unknown) gabapentin 300 mg (units (unknown) date) capsule 300 mg PO unknown) BEDTIME #14 caps 06/12/22 (unknown) (no (unknown) (unknown) gabapentin 300 mg (units (unknown) date) capsule unknown) (unknown) (no (unknown) (unknown) her bilateral knees (unit s (unknown) date) and states that she unknown) needs a right knee replacement. (unknown) (no (unknown) (unknown) history of (units (unk nown) date) diabetes, denies any unknown) range of motion deficit other than limitations (unknown) (no (unknown) (unknown) household members: (units (unknown) date) family unknown) (unknown) (no (unknown) (unknown) ketorolac [From (units (unknown) date) Toradol] Allergy unknown) Verified 06/12/22 21:48 (unknown) (no (unknown) (unknown) legs, (units (unkno wn) date) unknown) (unknown) (no (unknown) (unknown) lidocaine 5 % (units ( unknown) date) adhesive unknown) patch,medicated (unknown) (no (unknown) (unknown) lidocaine 5 % (units ( unknown) date) topical patch 1 unknown) patch topical PRN PRN Pain 04/26/22 04/26/22 (unknown) (no (unknown) (unknown) lisinopril 10 mg (units (unknown) date) Tablet unknown) (unknown) (no (unknown) (unknown) lisinopril 10 mg (units (unknown) date) tablet 10 mg PO unknown) DAILY 03/05/21 04/26/22 (unknown) (no (unknown) (unknown) metformin 500 mg (units (unknown) date) Tablet unknown) (unknown) (no (unknown) (unknown) metformin 500 mg (units (unknown) date) tablet 500 mg PO BID unknown) PRN Hyperglycemia 03/05/21 04/26/22 (unknown) (no (unknown) (unknown) methylprednisolone (units (unknown) date) 4 mg tablets in See unknown) Rx Instructions PO .COMPLEX 06/12/22 (unknown) (no (unknown) (unknown) methylprednisolone (units (unknown) date) [Medrol (Galdino)] 4 mg unknown) tablets,dose pack (unknown) (no (unknown) (unknown) mg tablet 4-6) (units (unknown) date) unknown) (unknown) (no (unknown) (unknown) motion, patient (units (unknown) date) able to flex and unknown) extend her right knee without limitation other (unknown) (no (unknown) (unknown) naproxen AdvReac (units (unknown) date) Intermediate Joint unknown) Pain Verified 06/12/22 21:48 (unknown) (no (unknown) (unknown) nystatin 100,000 (units (unknown) date) unit/gram topical 1 unknown) applic topical BID #14 grams 04/27/22 (unknown) (no (unknown) (unknown) nystatin [Nystop] (units (unknown) date) 100,000 unit/gram unknown) Powder (unknown) (no (unknown) (unknown) obesity, (units (unkno wn) date) osteoarthritis and unknown) psoriatic arthritis, 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, (unknown) (no (unknown) (unknown) orally per package (units (unknown) date) directions unknown) (unknown) (no (unknown) (unknown) oxycodone-acetamino (unit s (unknown) date) phen 10 mg-325 1 tab unknown) PO Q3H PRN Pain (Scale Score 04/26/22 (unknown) (no (unknown) (unknown) oxycodone-acetamino (unit s (unknown) date) phen 10-325 mg unknown) tablet (unknown) (no (unknown) (unknown) pantoprazole 40 mg (units (unknown) date) tablet,delayed 40 mg unknown) PO QAM PRN Acid Reflux 04/26/22 04/26/22 (unknown) (no (unknown) (unknown) pantoprazole 40 mg (units (unknown) date) tablet,delayed unknown) release (DR/EC) (unknown) (no (unknown) (unknown) porch smoking and (units (unknown) date) tripped, falling unknown) forward onto tile floor with her right knee (unknown) (no (unknown) (unknown) powder (Nystop) (units (unknown) date) unknown) (unknown) (no (unknown) (unknown) pseudoephedrine (units (unknown) date) AdvReac Intermediate unknown) Joint Pain Verified 06/12/22 21:48 (unknown) (no (unknown) (unknown) rabeprazole 5 mg (units (unknown) date) capsule,delayed 40 unknown) mg PO QAM 03/05/21 04/26/22 (unknown) (no (unknown) (unknown) release 24 hr (units ( unknown) date) (Xanax XR) unknown) (unknown) (no (unknown) (unknown) release sprinkle (units (unknown) date) (AcipHex Sprinkle) unknown) (unknown) (no (unknown) (unknown) release (units (unkno wn) date) unknown) (unknown) (no (unknown) (unknown) right knee with (units (unknown) date) ecchymosis anterior unknown) to the patella, tenderness with palpation (unknown) (no (unknown) (unknown) sertraline 25 mg (units (unknown) date) tablet (Zoloft) 100 unknown) mg PO BID 03/05/21 04/26/22 (unknown) (no (unknown) (unknown) sertraline [Zoloft] (unit s (unknown) date) 25 mg Tablet unknown) (unknown) (no (unknown) (unknown) surrounding the (units (unknown) date) patella and with any unknown) patellar manipulation, right leg patient (unknown) (no (unknown) (unknown) tenderness or (units ( unknown) date) exquisite tenderness unknown) with exam. (unknown) (no (unknown) (unknown) than due to pain. (units (unknown) date) There is no open unknown) wound, there is a suprapatellar effusion (unknown) (no (unknown) (unknown) tiotropium bromide (units (unknown) date) 18 mcg capsule 1 cap unknown) inhalation DAILY 03/05/21 04/26/22 (unknown) (no (unknown) (unknown) tobacco type: (units ( unknown) date) cigarettes unknown) (unknown) (no (unknown) (unknown) valacyclovir 1 gram (unit s (unknown) date) tablet 1 mg PO QAM unknown) 04/26/22 04/26/22 (unknown) (no (unknown) (unknown) valacyclovir 1 gram (unit s (unknown) date) tablet unknown) (unknown) (no (unknown) (unknown) wheezing, stridor, (units (unknown) date) or abnormal breath unknown) sounds. No retractions or tachypnea. (unknown) (no (unknown) (unknown) which is palpable, (units (unknown) date) tenderness over MCL unknown) and over LCL. (unknown) (no (unknown) (unknown) with HandiHaler) (units (unknown) date) unknown) (unknown) (no (unknown) (unknown) with inhalation (units (unknown) date) device (Spiriva unknown) (unknown) (no (unknown) (unknown) worse with (units (unk nown) date) attempting to bear unknown) weight or with movement and palpation. She denies Result panel 8 (unknown) (no (unknown) (unknown) (no value) (units (unk nown) date) unknown) (unknown) (no (unknown) (unknown) (Scale Score 4-6) (units (unknown) date) unknown) (unknown) (no (unknown) (unknown) [id number] (units (unkno wn) date) unknown) (unknown) (no (unknown) (unknown) 04/26/22 (units (unkno wn) date) unknown) (unknown) (no (unknown) (unknown) 06/14/22 13:12 (units (unknown) date) unknown) (unknown) (no (unknown) (unknown) 06/14/22 14:09 (units (unknown) date) unknown) (unknown) (no (unknown) (unknown) 06/14/22 (units (unkno wn) date) unknown) (unknown) (no (unknown) (unknown) 1 applic topical (units (unknown) date) BID Qty: 14 0RF unknown) (unknown) (no (unknown) (unknown) 1 cap INHALATION (units (unknown) date) DAILY unknown) (unknown) (no (unknown) (unknown) 1 mg PO DAILY (units ( unknown) date) unknown) (unknown) (no (unknown) (unknown) 1 mg PO QAM (units (un known) date) unknown) (unknown) (no (unknown) (unknown) 1 patch topical PRN (unit s (unknown) date) PRN (Reason: Pain unknown) (Scale Score 4-6)) (unknown) (no (unknown) (unknown) 1 tab PO Q3H PRN (units (unknown) date) (Reason: Pain (Scale unknown) Score 4-6)) (unknown) (no (unknown) (unknown) 10 mg PO DAILY (units (unknown) date) unknown) (unknown) (no (unknown) (unknown) 100 mg PO BID (units ( unknown) date) unknown) (unknown) (no (unknown) (unknown) 120 mg PO DAILY (units (unknown) date) unknown) (unknown) (no (unknown) (unknown) 13:06 (units (unkno wn) date) unknown) (unknown) (no (unknown) (unknown) 2 puff INHALATION (units (unknown) date) Q4-6H PRN (Reason: unknown) Shortness Of Breath) (unknown) (no (unknown) (unknown) 200 mg PO DAILY (units (unknown) date) Qty: 7 0RF unknown) (unknown) (no (unknown) (unknown) 300 mg PO BEDTIME (units (unknown) date) Qty: 14 0RF unknown) (unknown) (no (unknown) (unknown) 40 mg PO QAM PRN (units (unknown) date) (Reason: Acid unknown) Reflux) (unknown) (no (unknown) (unknown) 40 mg PO QAM (units (u nknown) date) unknown) (unknown) (no (unknown) (unknown) 500 mg PO BID PRN (units (unknown) date) (Reason: unknown) Hyperglycemia) (unknown) (no (unknown) (unknown) ? (units (unkno wn) date) unknown) (unknown) (no (unknown) (unknown) AcipHex Sprinkle 5 (units (unknown) date) mg Capsule, Delayed unknown) Rel Sprinkle (unknown) (no (unknown) (unknown) Age/Sex: 52 / F (units (unknown) date) unknown) (unknown) (no (unknown) (unknown) Allergies (units (unkn own) date) unknown) (unknown) (no (unknown) (unknown) Allergy/AdvReac (units (unknown) date) Type Severity unknown) Reaction Status Date / Time (unknown) (no (unknown) (unknown) Antibiotics) (units (u nknown) date) unknown) (unknown) (no (unknown) (unknown) Approved by: Jovanny (units (unknown) date) Artemio Hannah on unknown) 06/14/2022 at 14:01 ? (unknown) (no (unknown) (unknown) Asthma (units (unkno wn) date) unknown) (unknown) (no (unknown) (unknown) Blood Pressure (units (unknown) date) 128/75 06/14/22 unknown) 13:06 (unknown) (no (unknown) (unknown) Blood Pressure (units (unknown) date) 128/75 unknown) (unknown) (no (unknown) (unknown) Bones:? No (units (unk nown) date) fractures or unknown) dislocations.? Severe tricompartmental osteophytosis.? (unknown) (no (unknown) (unknown) Breathing (units (unkn own) date) unknown) (unknown) (no (unknown) (unknown) COMPARISON:? [place] (unit s (unknown) date) [facility], CR, XR unknown) KNEE RT 3V, 03/03/2022, 17:40. (unknown) (no (unknown) (unknown) Cardiovascular: (units (unknown) date) regular rate and unknown) rhythm, no peripheral edema, warm extremities (unknown) (no (unknown) (unknown) Chief Complaint: (units (unknown) date) Extremity Injury, unknown) Lower (unknown) (no (unknown) (unknown) Chronic anemia (units (unknown) date) unknown) (unknown) (no (unknown) (unknown) Course (units (unkno wn) date) unknown) (unknown) (no (unknown) (unknown) : 1970 (units (unknown) date) Acct:[id number] unknown) (unknown) (no (unknown) (unknown) Date of Service: (units (unknown) date) 06/14/22 unknown) (unknown) (no (unknown) (unknown) Departure (units (unkn own) date) unknown) (unknown) (no (unknown) (unknown) Diabetes mellitus, (units (unknown) date) type 2 unknown) (unknown) (no (unknown) (unknown) Dictated by: Jovanny (units (unknown) date) Nedra Hannah. on unknown) 06/14/2022 at 13:59 ? ? (unknown) (no (unknown) (unknown) Discharge Plan (units (unknown) date) unknown) (unknown) (no (unknown) (unknown) Discontinued (units (u nknown) date) Medications unknown) (unknown) (no (unknown) (unknown) Nikolai Gray MD (unit s (unknown) date) [Primary Care unknown) Provider] (unknown) (no (unknown) (unknown) ED Orders (units (unkn own) date) unknown) (unknown) (no (unknown) (unknown) ER Physician: (units ( unknown) date) Daija Rosales unknown) (unknown) (no (unknown) (unknown) Emergency Report (units (unknown) date) unknown) (unknown) (no (unknown) (unknown) Exam Narrative: (units (unknown) date) unknown) (unknown) (no (unknown) (unknown) Exam (units (unkno wn) date) unknown) (unknown) (no (unknown) (unknown) Extremity x-ray #1: (unit s (unknown) date) unknown) (unknown) (no (unknown) (unknown) FINDINGS:? (units (unk nown) date) unknown) (unknown) (no (unknown) (unknown) Fibromyalgia (units (u nknown) date) unknown) (unknown) (no (unknown) (unknown) GI: abdomen soft, (units (unknown) date) nontender to unknown) palpation, nondistended, without masses, rebound (unknown) (no (unknown) (unknown) General (units (unkno wn) date) unknown) (unknown) (no (unknown) (unknown) General: (units (unkno wn) date) cooperative, unknown) uncomfortable, in acute distress, dirty feet and lower (unknown) (no (unknown) (unknown) HEENT: symmetrical (units (unknown) date) facial expressions, unknown) moist mucous membranes (unknown) (no (unknown) (unknown) HPI - Extremity (units (unknown) date) Injury (Lower) unknown) (unknown) (no (unknown) (unknown) HPI Narrative: (units (unknown) date) unknown) (unknown) (no (unknown) (unknown) HPI (units (unkno wn) date) unknown) (unknown) (no (unknown) (unknown) History of Present (units (unknown) date) Illness unknown) (unknown) (no (unknown) (unknown) History of (units (unk nown) date) arthroscopy of right unknown) shoulder (03/08/21) (unknown) (no (unknown) (unknown) History of carpal (units (unknown) date) tunnel release unknown) (unknown) (no (unknown) (unknown) Home Medications (units (unknown) date) unknown) (unknown) (no (unknown) (unknown) Hx of abdominal (units (unknown) date) surgery unknown) (unknown) (no (unknown) (unknown) Hx of arthroscopic (units (unknown) date) knee surgery unknown) (unknown) (no (unknown) (unknown) Hx of (units (unkno wn) date) cholecystectomy unknown) (unknown) (no (unknown) (unknown) Hx of foot surgery (units (unknown) date) unknown) (unknown) (no (unknown) (unknown) Hx of lumbosacral (units (unknown) date) spine surgery unknown) (unknown) (no (unknown) (unknown) Hydromorphone HCl (units (unknown) date) (Hydromorphone 0.5 unknown) Mg Inj) 0.5 mg IV NOW ONE (unknown) (no (unknown) (unknown) IMPRESSION:? (units (u nknown) date) unknown) (unknown) (no (unknown) (unknown) INDICATIONS:? fall (units (unknown) date) unknown) (unknown) (no (unknown) (unknown) If concern for (units (unknown) date) occult fracture unknown) consider CT for further evaluation (unknown) (no (unknown) (unknown) Imaging Data (units (u nknown) date) unknown) (unknown) (no (unknown) (unknown) Initial Vital Signs (unit s (unknown) date) unknown) (unknown) (no (unknown) (unknown) Initial Vital (units ( unknown) date) Signs: unknown) (unknown) (no (unknown) (unknown) [facility] (units (unknown) date) [address] unknown) [place] [id number] (unknown) (no (unknown) (unknown) Label Comments: (units (unknown) date) unknown) (unknown) (no (unknown) (unknown) Lupus (units (unkno wn) date) unknown) (unknown) (no (unknown) (unknown) MDM - Extremity (units (unknown) date) Injury (Lower) unknown) (unknown) (no (unknown) (unknown) MRSA, anxiety, (units (unknown) date) depression, and unknown) chronic pain who presents to the emergency (unknown) (no (unknown) (unknown) MSK: moves all (units (unknown) date) extremities, unknown) neurovascularly intact, no weakness, normal tone, (unknown) (no (unknown) (unknown) Medical History (units (unknown) date) (Reviewed 06/14/22 @ unknown) 14:12 by Daija Rosales [employer]) (unknown) (no (unknown) (unknown) Medication (units (unk nown) date) Instructions unknown) Recorded Confirmed (unknown) (no (unknown) (unknown) Medication (units (unk nown) date) Instructions unknown) Recorded (unknown) (no (unknown) (unknown) 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 unknown) (unknown) (no (unknown) (unknown) Obesity, morbid, (units (unknown) date) BMI 50 or higher unknown) (unknown) (no (unknown) (unknown) Ordered: (units (unkno wn) date) unknown) (unknown) (no (unknown) (unknown) Orders (units (unkno wn) date) unknown) (unknown) (no (unknown) (unknown) Osteoarthritis (units (unknown) date) unknown) (unknown) (no (unknown) (unknown) Oxycodone/Acetamino (unit s (unknown) date) phen unknown) (Oxycodone/Acetamino phen 5/325 Tablet) 2 tab PO NOW ONE (unknown) (no (unknown) (unknown) Oxygen Delivery (units (unknown) date) Method 06/14/22 unknown) 13:06 (unknown) (no (unknown) (unknown) Oxygen Delivery (units (unknown) date) Method Room Air unknown) (unknown) (no (unknown) (unknown) PROCEDURE:? XR KNEE (unit s (unknown) date) RT 1TO2V unknown) (unknown) (no (unknown) (unknown) Pain (units (unkno wn) date) unknown) (unknown) (no (unknown) (unknown) Patient History (units (unknown) date) unknown) (unknown) (no (unknown) (unknown) Patient: (units (unkno wn) date) Rosa Ramon MR#: unknown) M00 (unknown) (no (unknown) (unknown) [place] Allergy (unit s (unknown) date) Severe Difficulty unknown) Verified 06/12/22 21:48 (unknown) (no (unknown) (unknown) Prescriptions: (units (unknown) date) unknown) (unknown) (no (unknown) (unknown) Previous Rx's (units ( unknown) date) unknown) (unknown) (no (unknown) (unknown) Psoriatic arthritis (unit s (unknown) date) unknown) (unknown) (no (unknown) (unknown) Psych: mental (units ( unknown) date) status is grossly unknown) normal, congruent mood, normal affect, pleasant (unknown) (no (unknown) (unknown) Pulse Oximetry 95 (units (unknown) date) 06/14/22 13:06 unknown) (unknown) (no (unknown) (unknown) Pulse Oximetry 95 (units (unknown) date) unknown) (unknown) (no (unknown) (unknown) Pulse Rate 83 (units ( unknown) date) 06/14/22 13:06 unknown) (unknown) (no (unknown) (unknown) Pulse Rate 83 (units ( unknown) date) unknown) (unknown) (no (unknown) (unknown) Radiologist's (units ( unknown) date) Impression: unknown) (unknown) (no (unknown) (unknown) Referrals: (units (unk nown) date) unknown) (unknown) (no (unknown) (unknown) Related Data (units (u nknown) date) unknown) (unknown) (no (unknown) (unknown) Respiratory Rate 19 (unit s (unknown) date) 06/14/22 13:06 unknown) (unknown) (no (unknown) (unknown) Respiratory Rate 19 (unit s (unknown) date) unknown) (unknown) (no (unknown) (unknown) Respiratory: normal (unit s (unknown) date) effort, able to unknown) speak in complete sentences, without (unknown) (no (unknown) (unknown) Review of Systems (units (unknown) date) unknown) (unknown) (no (unknown) (unknown) Review of systems (units (unknown) date) is negative for unknown) acute abnormalities unless otherwise noted in (unknown) (no (unknown) (unknown) Reviewed vitals (units (unknown) date) signs and nursing unknown) notes. (unknown) (no (unknown) (unknown) Rexulti 2 mg Tablet (unit s (unknown) date) unknown) (unknown) (no (unknown) (unknown) Rx Instructions: (units (unknown) date) unknown) (unknown) (no (unknown) (unknown) See Rx Instructions (unit s (unknown) date) .ROUTE .COMPLEX Qty: unknown) 21 0RF (unknown) (no (unknown) (unknown) Severe degenerative (unit s (unknown) date) change.? unknown) (unknown) (no (unknown) (unknown) Signed By: (units (unk nown) date) unknown) (unknown) (no (unknown) (unknown) Skin: brisk (units (un known) date) capillary refill, unknown) without pallor or erythema (unknown) (no (unknown) (unknown) Smoking Status: (units (unknown) date) Current every day unknown) smoker (unknown) (no (unknown) (unknown) Social History (units (unknown) date) (Reviewed 06/14/22 @ unknown) 14:12 by Daija Rosales [facility]) (unknown) (no (unknown) (unknown) Soft tissues:? Small (unit s (unknown) date) joint effusion.? No unknown) suspicious soft tissue calcifications.? (unknown) (no (unknown) (unknown) Source: patient and (unit s (unknown) date) EMS unknown) (unknown) (no (unknown) (unknown) Spiriva with (units (u nknown) date) HandiHaler 18 mcg unknown) Capsule, W/Inhalation Device (unknown) (no (unknown) (unknown) Stated Complaint: R (unit s (unknown) date) Knee pain, fall unknown) (unknown) (no (unknown) (unknown) Stop: 06/14/22 (units (unknown) date) 14:05 unknown) (unknown) (no (unknown) (unknown) Stop: 06/14/22 (units (unknown) date) 14:10 unknown) (unknown) (no (unknown) (unknown) Substance Use Type: (unit s (unknown) date) does not use unknown) (unknown) (no (unknown) (unknown) Sulfa (Sulfonamide (units (unknown) date) AdvReac Intermediate unknown) Joint Pain Verified 06/12/22 21:48 (unknown) (no (unknown) (unknown) Surgical History (units (unknown) date) (Reviewed 06/14/22 @ unknown) 14:12 by Daija Rosales [facility]) (unknown) (no (unknown) (unknown) TABLETS . (units (unkn own) date) unknown) (unknown) (no (unknown) (unknown) TAKE 1 TABLET BY (units (unknown) date) MOUTH DAILY unknown) (unknown) (no (unknown) (unknown) TAKE 1 TABLET BY (units (unknown) date) MOUTH EVERY 4 TO 6 unknown) HOURS NEEDED . MAXIMUM DAILY DOSE IS 5 (unknown) (no (unknown) (unknown) TAKE 1 TABLET BY (units (unknown) date) MOUTH EVERY DAY unknown) (unknown) (no (unknown) (unknown) TECHNIQUE:? 2 views (unit s (unknown) date) of the knee were unknown) acquired.? (unknown) (no (unknown) (unknown) Temperature 96.8 F (units (unknown) date) L 06/14/22 13:06 unknown) (unknown) (no (unknown) (unknown) Temperature 96.8 F (units (unknown) date) L unknown) (unknown) (no (unknown) (unknown) There is (units (unkno wn) date) unknown) (unknown) (no (unknown) (unknown) This is a (units (unkn own) date) 52-year-old female unknown) with history of diabetes, fibromyalgia, lupus,, (unknown) (no (unknown) (unknown) Time Seen by (units (u nknown) date) Provider: 06/14/22 unknown) 13:40 (unknown) (no (unknown) (unknown) Vital Signs - 8 hr (units (unknown) date) unknown) (unknown) (no (unknown) (unknown) Vital Signs (units (un known) date) unknown) (unknown) (no (unknown) (unknown) Vital signs: (units (u nknown) date) unknown) (unknown) (no (unknown) (unknown) XR knee RT 1to2V (units (unknown) date) Stat unknown) (unknown) (no (unknown) (unknown) XR knee RT 4V Stat (units (unknown) date) unknown) (unknown) (no (unknown) (unknown) a dose pack (Medrol (unit s (unknown) date) (Galdino)) #21 ea unknown) (unknown) (no (unknown) (unknown) able to dorsiflex (units (unknown) date) and plantar extend, unknown) no ankle pain or hip pain with range of (unknown) (no (unknown) (unknown) aerosol inhaler (units (unknown) date) Shortness Of Breath unknown) (unknown) (no (unknown) (unknown) albuterol sulfate 90 (unit s (unknown) date) mcg/actuation 2 puff unknown) inhalation Q4-6H PRN 03/05/21 04/26/22 (unknown) (no (unknown) (unknown) albuterol sulfate (units (unknown) date) 90 mcg/actuation Hfa unknown) Aerosol Inhaler (unknown) (no (unknown) (unknown) alcohol intake (units (unknown) date) frequency: unknown) holidays/special occasions only (unknown) (no (unknown) (unknown) alcohol intake: (units (unknown) date) current unknown) (unknown) (no (unknown) (unknown) alprazolam 3 mg (units (unknown) date) tablet,extended 1 mg unknown) PO DAILY 03/05/21 04/26/22 (unknown) (no (unknown) (unknown) alprazolam [Xanax (units (unknown) date) XR] 3 mg Tablet unknown) Extended Release 24 Hr (unknown) (no (unknown) (unknown) and cooperative (units (unknown) date) unknown) (unknown) (no (unknown) (unknown) and now complaining (unit s (unknown) date) patellar pain and unknown) surrounding pain. She states that pain is (unknown) (no (unknown) (unknown) any numbness or (units (unknown) date) tingling, any unknown) sensation changes, any open wounds, denies any (unknown) (no (unknown) (unknown) brexpiprazole 2 mg (units (unknown) date) tablet (Rexulti) 1 unknown) mg PO DAILY 03/05/21 04/26/22 (unknown) (no (unknown) (unknown) [place] Allergy (units (unknown) date) Severe Difficulty unknown) Verified 06/12/22 21:48 (unknown) (no (unknown) (unknown) department via EMS (units (unknown) date) for right knee unknown) injury. Patient states that she was on the (unknown) (no (unknown) (unknown) dipyridamole (units (u nknown) date) AdvReac Intermediate unknown) Joint Pain Verified 06/12/22 21:48 (unknown) (no (unknown) (unknown) due to pain. She (units (unknown) date) states that she has unknown) a history of degenerative joint disease in (unknown) (no (unknown) (unknown) eggshell membrane (units (unknown) date) Allergy Intermediate unknown) Abdominal Uncoded 03/08/21 07:16 (unknown) (no (unknown) (unknown) eucalyptus Allergy (units (unknown) date) Severe Difficulty unknown) Verified 06/12/22 21:48 (unknown) (no (unknown) (unknown) fluconazole 200 mg (units (unknown) date) tablet 200 mg PO unknown) DAILY #7 tabs 04/27/22 (unknown) (no (unknown) (unknown) fluconazole 200 mg (units (unknown) date) tablet unknown) (unknown) (no (unknown) (unknown) furosemide 40 mg (units (unknown) date) tablet (Lasix) 120 unknown) mg PO DAILY 03/05/21 04/26/22 (unknown) (no (unknown) (unknown) furosemide [Lasix] (units (unknown) date) 40 mg Tablet unknown) (unknown) (no (unknown) (unknown) gabapentin 300 mg (units (unknown) date) capsule 300 mg PO unknown) BEDTIME #14 caps 06/12/22 (unknown) (no (unknown) (unknown) gabapentin 300 mg (units (unknown) date) capsule unknown) (unknown) (no (unknown) (unknown) her bilateral knees (unit s (unknown) date) and states that she unknown) needs a right knee replacement. (unknown) (no (unknown) (unknown) history of (units (unk nown) date) diabetes, denies any unknown) range of motion deficit other than limitations (unknown) (no (unknown) (unknown) household members: (units (unknown) date) family unknown) (unknown) (no (unknown) (unknown) joint space (units (un known) date) narrowing.? No unknown) suspicious bony lesions.? (unknown) (no (unknown) (unknown) ketorolac [From (units (unknown) date) Toradol] Allergy unknown) Verified 06/12/22 21:48 (unknown) (no (unknown) (unknown) legs, (units (unkno wn) date) unknown) (unknown) (no (unknown) (unknown) lidocaine 5 % (units ( unknown) date) adhesive unknown) patch,medicated (unknown) (no (unknown) (unknown) lidocaine 5 % (units ( unknown) date) topical patch 1 unknown) patch topical PRN PRN Pain 04/26/22 04/26/22 (unknown) (no (unknown) (unknown) lisinopril 10 mg (units (unknown) date) Tablet unknown) (unknown) (no (unknown) (unknown) lisinopril 10 mg (units (unknown) date) tablet 10 mg PO unknown) DAILY 03/05/21 04/26/22 (unknown) (no (unknown) (unknown) metformin 500 mg (units (unknown) date) Tablet unknown) (unknown) (no (unknown) (unknown) metformin 500 mg (units (unknown) date) tablet 500 mg PO BID unknown) PRN Hyperglycemia 03/05/21 04/26/22 (unknown) (no (unknown) (unknown) methylprednisolone (units (unknown) date) 4 mg tablets in See unknown) Rx Instructions PO .COMPLEX 06/12/22 (unknown) (no (unknown) (unknown) methylprednisolone (units (unknown) date) [Medrol (Galdino)] 4 mg unknown) tablets,dose pack (unknown) (no (unknown) (unknown) mg tablet 4-6) (units (unknown) date) unknown) (unknown) (no (unknown) (unknown) motion, patient (units (unknown) date) able to flex and unknown) extend her right knee without limitation other (unknown) (no (unknown) (unknown) naproxen AdvReac (units (unknown) date) Intermediate Joint unknown) Pain Verified 06/12/22 21:48 (unknown) (no (unknown) (unknown) nystatin 100,000 (units (unknown) date) unit/gram topical 1 unknown) applic topical BID #14 grams 04/27/22 (unknown) (no (unknown) (unknown) nystatin [Nystop] (units (unknown) date) 100,000 unit/gram unknown) Powder (unknown) (no (unknown) (unknown) obesity, (units (unkno wn) date) osteoarthritis and unknown) psoriatic arthritis, 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, (unknown) (no (unknown) (unknown) orally per package (units (unknown) date) directions unknown) (unknown) (no (unknown) (unknown) oxycodone-acetamino (unit s (unknown) date) phen 10 mg-325 1 tab unknown) PO Q3H PRN Pain (Scale Score 04/26/22 (unknown) (no (unknown) (unknown) oxycodone-acetamino (unit s (unknown) date) phen 10-325 mg unknown) tablet (unknown) (no (unknown) (unknown) pantoprazole 40 mg (units (unknown) date) tablet,delayed 40 mg unknown) PO QAM PRN Acid Reflux 04/26/22 04/26/22 (unknown) (no (unknown) (unknown) pantoprazole 40 mg (units (unknown) date) tablet,delayed unknown) release (DR/EC) (unknown) (no (unknown) (unknown) porch smoking and (units (unknown) date) tripped, falling unknown) forward onto tile floor with her right knee (unknown) (no (unknown) (unknown) powder (Nystop) (units (unknown) date) unknown) (unknown) (no (unknown) (unknown) pseudoephedrine (units (unknown) date) AdvReac Intermediate unknown) Joint Pain Verified 06/12/22 21:48 (unknown) (no (unknown) (unknown) rabeprazole 5 mg (units (unknown) date) capsule,delayed 40 unknown) mg PO QAM 03/05/21 04/26/22 (unknown) (no (unknown) (unknown) release 24 hr (units ( unknown) date) (Xanax XR) unknown) (unknown) (no (unknown) (unknown) release sprinkle (units (unknown) date) (AcipHex Sprinkle) unknown) (unknown) (no (unknown) (unknown) release (units (unkno wn) date) unknown) (unknown) (no (unknown) (unknown) right knee with (units (unknown) date) ecchymosis anterior unknown) to the patella, tenderness with palpation (unknown) (no (unknown) (unknown) sertraline 25 mg (units (unknown) date) tablet (Zoloft) 100 unknown) mg PO BID 03/05/21 04/26/22 (unknown) (no (unknown) (unknown) sertraline [Zoloft] (unit s (unknown) date) 25 mg Tablet unknown) (unknown) (no (unknown) (unknown) surrounding the (units (unknown) date) patella and with any unknown) patellar manipulation, right leg patient (unknown) (no (unknown) (unknown) tenderness or (units ( unknown) date) exquisite tenderness unknown) with exam. (unknown) (no (unknown) (unknown) than due to pain. (units (unknown) date) There is no open unknown) wound, there is a suprapatellar effusion (unknown) (no (unknown) (unknown) tiotropium bromide (units (unknown) date) 18 mcg capsule 1 cap unknown) inhalation DAILY 03/05/21 04/26/22 (unknown) (no (unknown) (unknown) tobacco type: (units ( unknown) date) cigarettes unknown) (unknown) (no (unknown) (unknown) valacyclovir 1 gram (unit s (unknown) date) tablet 1 mg PO QAM unknown) 04/26/22 04/26/22 (unknown) (no (unknown) (unknown) valacyclovir 1 gram (unit s (unknown) date) tablet unknown) (unknown) (no (unknown) (unknown) wheezing, stridor, (units (unknown) date) or abnormal breath unknown) sounds. No retractions or tachypnea. (unknown) (no (unknown) (unknown) which is palpable, (units (unknown) date) tenderness over MCL unknown) and over LCL. (unknown) (no (unknown) (unknown) with HandiHaler) (units (unknown) date) unknown) (unknown) (no (unknown) (unknown) with inhalation (units (unknown) date) device (Spiriva unknown) (unknown) (no (unknown) (unknown) worse with (units (unk nown) date) attempting to bear unknown) weight or with movement and palpation. She denies Result panel 9 (unknown) (no (unknown) (unknown) (no value) (units (unk nown) date) unknown) (unknown) (no (unknown) (unknown) <Electronically (units (unknown) date) signed by Daija Gallardo unknown) [facility] Crew> (unknown) (no (unknown) (unknown) (Scale Score 4-6) (units (unknown) date) unknown) (unknown) (no (unknown) (unknown) *If you do not have (unit s (unknown) date) a primary care unknown) provider please contact [phone] to (unknown) (no (unknown) (unknown) *Please continue to (unit s (unknown) date) take your regular unknown) medications as directed. (unknown) (no (unknown) (unknown) *Please follow up (units (unknown) date) with your primary unknown) care provider in 2-3 days, call for an (unknown) (no (unknown) (unknown) *Return to (units (unk nown) date) Emergency Department unknown) if you should have any new, worsening, or (unknown) (no (unknown) (unknown) *What to do: (units (u nknown) date) unknown) (unknown) (no (unknown) (unknown) *You have been (units (unknown) date) diagnosed with a unknown) right knee injury which shows fluid within the (unknown) (no (unknown) (unknown) [id number] (units (unkno wn) date) unknown) (unknown) (no (unknown) (unknown) 04/26/22 (units (unkno wn) date) unknown) (unknown) (no (unknown) (unknown) 06/14/22 13:12 (units (unknown) date) unknown) (unknown) (no (unknown) (unknown) 06/14/22 14:09 (units (unknown) date) unknown) (unknown) (no (unknown) (unknown) 06/14/22 1559 (units ( unknown) date) unknown) (unknown) (no (unknown) (unknown) 06/14/22 (units (unkno wn) date) unknown) (unknown) (no (unknown) (unknown) 1 applic topical (units (unknown) date) BID Qty: 14 0RF unknown) (unknown) (no (unknown) (unknown) 1 cap INHALATION (units (unknown) date) DAILY unknown) (unknown) (no (unknown) (unknown) 1 mg PO DAILY (units ( unknown) date) unknown) (unknown) (no (unknown) (unknown) 1 mg PO QAM (units (un known) date) unknown) (unknown) (no (unknown) (unknown) 1 patch topical PRN (unit s (unknown) date) PRN (Reason: Pain unknown) (Scale Score 4-6)) (unknown) (no (unknown) (unknown) 1 tab PO Q3H PRN (units (unknown) date) (Reason: Pain (Scale unknown) Score 4-6)) (unknown) (no (unknown) (unknown) 1 tab PO Q8H PRN (units (unknown) date) (Reason: pain) Qty: unknown) 10 0RF (unknown) (no (unknown) (unknown) 10 mg PO DAILY (units (unknown) date) unknown) (unknown) (no (unknown) (unknown) 100 mg PO BID (units ( unknown) date) unknown) (unknown) (no (unknown) (unknown) 120 mg PO DAILY (units (unknown) date) unknown) (unknown) (no (unknown) (unknown) 13:06 (units (unkno wn) date) unknown) (unknown) (no (unknown) (unknown) 2 puff INHALATION (units (unknown) date) Q4-6H PRN (Reason: unknown) Shortness Of Breath) (unknown) (no (unknown) (unknown) 200 mg PO DAILY (units (unknown) date) Qty: 7 0RF unknown) (unknown) (no (unknown) (unknown) 300 mg PO BEDTIME (units (unknown) date) Qty: 14 0RF unknown) (unknown) (no (unknown) (unknown) 40 mg PO QAM PRN (units (unknown) date) (Reason: Acid unknown) Reflux) (unknown) (no (unknown) (unknown) 40 mg PO QAM (units (u nknown) date) unknown) (unknown) (no (unknown) (unknown) 500 mg PO BID PRN (units (unknown) date) (Reason: unknown) Hyperglycemia) (unknown) (no (unknown) (unknown) ? (units (unkno wn) date) unknown) (unknown) (no (unknown) (unknown) AcipHex Sprinkle 5 (units (unknown) date) mg Capsule, Delayed unknown) Rel Sprinkle (unknown) (no (unknown) (unknown) Activity (units (unkno wn) date) Restrictions/Additio unknown) nal Instructions: (unknown) (no (unknown) (unknown) Age/Sex: 52 / F (units (unknown) date) unknown) (unknown) (no (unknown) (unknown) All questions and (units (unknown) date) concerns answered at unknown) this time. (unknown) (no (unknown) (unknown) Allergies (units (unkn own) date) unknown) (unknown) (no (unknown) (unknown) Allergy/AdvReac (units (unknown) date) Type Severity unknown) Reaction Status Date / Time (unknown) (no (unknown) (unknown) Antibiotics) (units (u nknown) date) unknown) (unknown) (no (unknown) (unknown) Approved by: Jovanny (units (unknown) date) Artemio Hannah on unknown) 06/14/2022 at 14:01 ? (unknown) (no (unknown) (unknown) Asthma (units (unkno wn) date) unknown) (unknown) (no (unknown) (unknown) Blood Pressure (units (unknown) date) 128/75 06/14/22 unknown) 13:06 (unknown) (no (unknown) (unknown) Blood Pressure (units (unknown) date) 128 unknown) (unknown) (no (unknown) (unknown) Bones:? No (units (unk nown) date) fractures or unknown) dislocations.? Severe tricompartmental osteophytosis.? (unknown) (no (unknown) (unknown) Breathing (units (unkn own) date) unknown) (unknown) (no (unknown) (unknown) COMPARISON:? [facility] (unit s (unknown) date) [facility], CR, XR unknown) KNEE RT 3V, 03/03/2022, 17:40. (unknown) (no (unknown) (unknown) Cardiovascular: (units (unknown) date) regular rate and unknown) rhythm, no peripheral edema, warm extremities (unknown) (no (unknown) (unknown) Chief Complaint: (units (unknown) date) Extremity Injury, unknown) Lower (unknown) (no (unknown) (unknown) Chronic anemia (units (unknown) date) unknown) (unknown) (no (unknown) (unknown) Clinical (units (unkno wn) date) Impression: unknown) (unknown) (no (unknown) (unknown) Course (units (unkno wn) date) unknown) (unknown) (no (unknown) (unknown) : 1970 (units (unknown) date) Acct:[id number] unknown) (unknown) (no (unknown) (unknown) Date of Service: (units (unknown) date) 06/14/22 unknown) (unknown) (no (unknown) (unknown) Departure (units (unkn own) date) unknown) (unknown) (no (unknown) (unknown) Diabetes mellitus, (units (unknown) date) type 2 unknown) (unknown) (no (unknown) (unknown) Dictated by: Jovanny (units (unknown) date) Artemio Hannah on unknown) 06/14/2022 at 13:59 ? ? (unknown) (no (unknown) (unknown) Discharge Plan (units (unknown) date) unknown) (unknown) (no (unknown) (unknown) Discontinued (units (u nknown) date) Medications unknown) (unknown) (no (unknown) (unknown) Nikolai Gray MD (unit s (unknown) date) [Primary Care unknown) Provider] (unknown) (no (unknown) (unknown) Documented By: [facility] (units (unknown) date) unknown) (unknown) (no (unknown) (unknown) Documented By: BS (units (unknown) date) unknown) (unknown) (no (unknown) (unknown) ED Orders (units (unkn own) date) unknown) (unknown) (no (unknown) (unknown) ER Physician: (units ( unknown) date) Crew,Daija COHN unknown) (unknown) (no (unknown) (unknown) Effusion of knee (units (unknown) date) joint unknown) (unknown) (no (unknown) (unknown) Emergency Report (units (unknown) date) unknown) (unknown) (no (unknown) (unknown) Encounter type: (units (unknown) date) initial encounter unknown) Qualified Code(s): S89.91XA - Unspecified (unknown) (no (unknown) (unknown) Encounter type: (units (unknown) date) initial encounter unknown) Qualified Code(s): W19.XXXA - Unspecified (unknown) (no (unknown) (unknown) Exam Narrative: (units (unknown) date) unknown) (unknown) (no (unknown) (unknown) Exam (units (unkno wn) date) unknown) (unknown) (no (unknown) (unknown) Extremity x-ray #1: (unit s (unknown) date) unknown) (unknown) (no (unknown) (unknown) FINDINGS:? (units (unk nown) date) unknown) (unknown) (no (unknown) (unknown) Fall (units (unkno wn) date) unknown) (unknown) (no (unknown) (unknown) Fibromyalgia (units (u nknown) date) unknown) (unknown) (no (unknown) (unknown) GI: abdomen soft, (units (unknown) date) nontender to unknown) palpation, nondistended, without masses, rebound (unknown) (no (unknown) (unknown) General (units (unkno wn) date) unknown) (unknown) (no (unknown) (unknown) General: (units (unkno wn) date) cooperative, unknown) uncomfortable, in acute distress, dirty feet and lower (unknown) (no (unknown) (unknown) HEENT: symmetrical (units (unknown) date) facial expressions, unknown) moist mucous membranes (unknown) (no (unknown) (unknown) HPI - Extremity (units (unknown) date) Injury (Lower) unknown) (unknown) (no (unknown) (unknown) HPI Narrative: (units (unknown) date) unknown) (unknown) (no (unknown) (unknown) HPI (units (unkno wn) date) unknown) (unknown) (no (unknown) (unknown) History of Present (units (unknown) date) Illness unknown) (unknown) (no (unknown) (unknown) History of (units (unk nown) date) arthroscopy of right unknown) shoulder (03/08/21) (unknown) (no (unknown) (unknown) History of carpal (units (unknown) date) tunnel release unknown) (unknown) (no (unknown) (unknown) Home Medications (units (unknown) date) unknown) (unknown) (no (unknown) (unknown) Hx of abdominal (units (unknown) date) surgery unknown) (unknown) (no (unknown) (unknown) Hx of arthroscopic (units (unknown) date) knee surgery unknown) (unknown) (no (unknown) (unknown) Hx of (units (unkno wn) date) cholecystectomy unknown) (unknown) (no (unknown) (unknown) Hx of foot surgery (units (unknown) date) unknown) (unknown) (no (unknown) (unknown) Hx of lumbosacral (units (unknown) date) spine surgery unknown) (unknown) (no (unknown) (unknown) Hydromorphone HCl (units (unknown) date) (Hydromorphone 0.5 unknown) Mg Inj) 0.5 mg IV NOW ONE (unknown) (no (unknown) (unknown) IMPRESSION:? (units (u nknown) date) unknown) (unknown) (no (unknown) (unknown) INDICATIONS:? fall (units (unknown) date) unknown) (unknown) (no (unknown) (unknown) If concern for (units (unknown) date) occult fracture unknown) consider CT for further evaluation (unknown) (no (unknown) (unknown) Imaging Data (units (u nknown) date) unknown) (unknown) (no (unknown) (unknown) Immobilizer (units (un known) date) unknown) (unknown) (no (unknown) (unknown) Initial Vital Signs (unit s (unknown) date) unknown) (unknown) (no (unknown) (unknown) Initial Vital (units ( unknown) date) Signs: unknown) (unknown) (no (unknown) (unknown) Injury of right (units (unknown) date) patella unknown) (unknown) (no (unknown) (unknown) Instructions: (units ( unknown) date) Osteoarthritis, DI unknown) for Knee Effusion, How to Use a Knee (unknown) (no (unknown) (unknown) [facility] (units (unknown) date) [address] unknown) [place] [address] (unknown) (no (unknown) (unknown) Label Comments: (units (unknown) date) unknown) (unknown) (no (unknown) (unknown) Last Admin: (units (un known) date) 06/14/22 14:20 Dose: unknown) 0.5 mg (unknown) (no (unknown) (unknown) Last Admin: (units (un known) date) 06/14/22 14:42 Dose: unknown) 2 tab (unknown) (no (unknown) (unknown) Last Admin: (units (un known) date) 06/14/22 15:25 Dose: unknown) 0.5 mg (unknown) (no (unknown) (unknown) Laterality: right (units (unknown) date) Qualified Code(s): unknown) M25.461 - Effusion, right knee (unknown) (no (unknown) (unknown) Lupus (units (unkno wn) date) unknown) (unknown) (no (unknown) (unknown) MDM - Extremity (units (unknown) date) Injury (Lower) unknown) (unknown) (no (unknown) (unknown) MDM Narrative (units ( unknown) date) unknown) (unknown) (no (unknown) (unknown) MRSA, anxiety, (units (unknown) date) depression, and unknown) chronic pain who presents to the emergency (unknown) (no (unknown) (unknown) MSK: moves all (units (unknown) date) extremities, unknown) neurovascularly intact, no weakness, normal tone, (unknown) (no (unknown) (unknown) Medical History (units (unknown) date) (Reviewed 06/14/22 @ unknown) 14:12 by Daija Rosales [facility]) (unknown) (no (unknown) (unknown) Medical decision (units (unknown) date) making narrative: unknown) (unknown) (no (unknown) (unknown) Medication (units (unk nown) date) Instructions unknown) Recorded Confirmed (unknown) (no (unknown) (unknown) Medication (units (unk nown) date) Instructions unknown) Recorded (unknown) (no (unknown) (unknown) 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, unknown) non-alcoholic (unknown) (no (unknown) (unknown) Mode of arrival: (units (unknown) date) EMS unknown) (unknown) (no (unknown) (unknown) Narrative (units (unkn own) date) unknown) (unknown) (no (unknown) (unknown) Narrative: (units (unk nown) date) unknown) (unknown) (no (unknown) (unknown) Neuro: normal (units ( unknown) date) speech and unknown) cognition, A+O x3, ambulatory, clear speech (unknown) (no (unknown) (unknown) New (units (unkno wn) date) unknown) (unknown) (no (unknown) (unknown) No Action (units (unkn own) date) unknown) (unknown) (no (unknown) (unknown) No fracture (units (un known) date) identified. unknown) (unknown) (no (unknown) (unknown) Obesity, morbid, (units (unknown) date) BMI 50 or higher unknown) (unknown) (no (unknown) (unknown) Ordered: (units (unkno wn) date) unknown) (unknown) (no (unknown) (unknown) Orders (units (unkno wn) date) unknown) (unknown) (no (unknown) (unknown) Osteoarthritis (units (unknown) date) unknown) (unknown) (no (unknown) (unknown) Oxycodone/Acetamino (unit s (unknown) date) phen unknown) (Oxycodone/Acetamino phen 5/325 Tablet) 2 tab PO NOW ONE (unknown) (no (unknown) (unknown) Oxygen Delivery (units (unknown) date) Method 06/14/22 unknown) 13:06 (unknown) (no (unknown) (unknown) Oxygen Delivery (units (unknown) date) Method Room Air unknown) (unknown) (no (unknown) (unknown) PROCEDURE:? XR KNEE (unit s (unknown) date) RT 1TO2V unknown) (unknown) (no (unknown) (unknown) Pain (units (unkno wn) date) unknown) (unknown) (no (unknown) (unknown) Patient (units (unkno wn) date) Disposition: Home unknown) (unknown) (no (unknown) (unknown) Patient History (units (unknown) date) unknown) (unknown) (no (unknown) (unknown) Patient: (units (unkno wn) date) Rosa Ramon MR#: unknown) M00 (unknown) (no (unknown) (unknown) [place] Allergy (unit s (unknown) date) Severe Difficulty unknown) Verified 06/12/22 21:48 (unknown) (no (unknown) (unknown) Please contact your (unit s (unknown) date) pain management unknown) provider and let them know you were seen in (unknown) (no (unknown) (unknown) Prescriptions: (units (unknown) date) unknown) (unknown) (no (unknown) (unknown) Previous Rx's (units ( unknown) date) unknown) (unknown) (no (unknown) (unknown) Psoriatic arthritis (unit s (unknown) date) unknown) (unknown) (no (unknown) (unknown) Psych: mental (units ( unknown) date) status is grossly unknown) normal, congruent mood, normal affect, pleasant (unknown) (no (unknown) (unknown) Pulse Oximetry 95 (units (unknown) date) 06/14/22 13:06 unknown) (unknown) (no (unknown) (unknown) Pulse Oximetry 95 (units (unknown) date) unknown) (unknown) (no (unknown) (unknown) Pulse Rate 83 (units ( unknown) date) 06/14/22 13:06 unknown) (unknown) (no (unknown) (unknown) Pulse Rate 83 (units ( unknown) date) unknown) (unknown) (no (unknown) (unknown) Qualifiers: (units (un known) date) unknown) (unknown) (no (unknown) (unknown) Radiologist's (units ( unknown) date) Impression: unknown) (unknown) (no (unknown) (unknown) Referrals: (units (unk nown) date) unknown) (unknown) (no (unknown) (unknown) Related Data (units (u nknown) date) unknown) (unknown) (no (unknown) (unknown) Respiratory Rate 19 (unit s (unknown) date) 06/14/22 13:06 unknown) (unknown) (no (unknown) (unknown) Respiratory Rate 19 (unit s (unknown) date) unknown) (unknown) (no (unknown) (unknown) Respiratory: normal (unit s (unknown) date) effort, able to unknown) speak in complete sentences, without (unknown) (no (unknown) (unknown) Review of Systems (units (unknown) date) unknown) (unknown) (no (unknown) (unknown) Review of systems (units (unknown) date) is negative for unknown) acute abnormalities unless otherwise noted in (unknown) (no (unknown) (unknown) Reviewed vitals (units (unknown) date) signs and nursing unknown) notes. (unknown) (no (unknown) (unknown) Rexulti 2 mg Tablet (unit s (unknown) date) unknown) (unknown) (no (unknown) (unknown) Rx Instructions: (units (unknown) date) unknown) (unknown) (no (unknown) (unknown) See Rx Instructions (unit s (unknown) date) .ROUTE .COMPLEX Qty: unknown) 21 0RF (unknown) (no (unknown) (unknown) Severe degenerative (unit s (unknown) date) change.? unknown) (unknown) (no (unknown) (unknown) Signed By: (units (unk nown) date) unknown) (unknown) (no (unknown) (unknown) [facility] (units (unkn own) date) Orthopedics unknown) [Provider Group] (unknown) (no (unknown) (unknown) Skin: brisk (units (un known) date) capillary refill, unknown) without pallor or erythema (unknown) (no (unknown) (unknown) Smoking Status: (units (unknown) date) Current every day unknown) smoker (unknown) (no (unknown) (unknown) Social History (units (unknown) date) (Reviewed 06/14/22 @ unknown) 14:12 by LALIT Brennan) (unknown) (no (unknown) (unknown) Soft tissues:? Small (unit s (unknown) date) joint effusion.? No unknown) suspicious soft tissue calcifications.? (unknown) (no (unknown) (unknown) Source: patient and (unit s (unknown) date) EMS unknown) (unknown) (no (unknown) (unknown) Spiriva with (units (u nknown) date) HandiHaler 18 mcg unknown) Capsule, W/Inhalation Device (unknown) (no (unknown) (unknown) Stated Complaint: R (unit s (unknown) date) Knee pain, fall unknown) (unknown) (no (unknown) (unknown) Stop: 06/14/22 (units (unknown) date) 14:05 unknown) (unknown) (no (unknown) (unknown) Stop: 06/14/22 (units (unknown) date) 14:10 unknown) (unknown) (no (unknown) (unknown) Stop: 06/14/22 (units (unknown) date) 15:03 unknown) (unknown) (no (unknown) (unknown) Substance Use Type: (unit s (unknown) date) does not use unknown) (unknown) (no (unknown) (unknown) Sulfa (Sulfonamide (units (unknown) date) AdvReac Intermediate unknown) Joint Pain Verified 06/12/22 21:48 (unknown) (no (unknown) (unknown) [place] view (units (u nknown) date) obtained after unknown) x-ray without patellar fracture or osseous (unknown) (no (unknown) (unknown) Surgical History (units (unknown) date) (Reviewed 06/14/22 @ unknown) 14:12 by Daija Rosales [facility]) (unknown) (no (unknown) (unknown) TABLETS . (units (unkn own) date) unknown) (unknown) (no (unknown) (unknown) TAKE 1 TABLET BY (units (unknown) date) MOUTH DAILY unknown) (unknown) (no (unknown) (unknown) TAKE 1 TABLET BY (units (unknown) date) MOUTH EVERY 4 TO 6 unknown) HOURS NEEDED . MAXIMUM DAILY DOSE IS 5 (unknown) (no (unknown) (unknown) TAKE 1 TABLET BY (units (unknown) date) MOUTH EVERY DAY unknown) (unknown) (no (unknown) (unknown) TECHNIQUE:? 2 views (unit s (unknown) date) of the knee were unknown) acquired.? (unknown) (no (unknown) (unknown) Temperature 96.8 F (units (unknown) date) L 06/14/22 13:06 unknown) (unknown) (no (unknown) (unknown) Temperature 96.8 F (units (unknown) date) L unknown) (unknown) (no (unknown) (unknown) There is (units (unkno wn) date) unknown) (unknown) (no (unknown) (unknown) This is a (units (unkn own) date) 52-year-old female unknown) with history of chronic pain, fibromyalgia, MRSA (unknown) (no (unknown) (unknown) This is a (units (unkn own) date) 52-year-old female unknown) with history of diabetes, fibromyalgia, lupus,, (unknown) (no (unknown) (unknown) Time Seen by (units (u nknown) date) Provider: 06/14/22 unknown) 13:40 (unknown) (no (unknown) (unknown) [place] (units (unknown) date) osteoarthritis of unknown) right knee (unknown) (no (unknown) (unknown) Vital Signs - 8 hr (units (unknown) date) unknown) (unknown) (no (unknown) (unknown) Vital Signs (units (un known) date) unknown) (unknown) (no (unknown) (unknown) Vital signs: (units (u nknown) date) unknown) (unknown) (no (unknown) (unknown) XR knee RT 1to2V (units (unknown) date) Stat unknown) (unknown) (no (unknown) (unknown) XR knee RT 4V Stat (units (unknown) date) unknown) (unknown) (no (unknown) (unknown) [ ] New medication (units (unknown) date) written as a paper unknown) prescription (unknown) (no (unknown) (unknown) [ ] No new (units (unk nown) date) medications given unknown) (unknown) (no (unknown) (unknown) [x ] New medication (unit s (unknown) date) prescriptions sent unknown) to your pharmacy: [ [facility]] (unknown) (no (unknown) (unknown) a dose pack (Medrol (unit s (unknown) date) ([place]ald[place])) #21 ea unknown) (unknown) (no (unknown) (unknown) able to dorsiflex (units (unknown) date) and plantar extend, unknown) no ankle pain or hip pain with range of (unknown) (no (unknown) (unknown) abnormality visible (unit s (unknown) date) unknown) (unknown) (no (unknown) (unknown) advanced imaging. (units (unknown) date) unknown) (unknown) (no (unknown) (unknown) aerosol inhaler (units (unknown) date) Shortness Of Breath unknown) (unknown) (no (unknown) (unknown) albuterol sulfate 90 (unit s (unknown) date) mcg/actuation 2 puff unknown) inhalation Q4-6H PRN 03/05/21 04/26/22 (unknown) (no (unknown) (unknown) albuterol sulfate (units (unknown) date) 90 mcg/actuation Hfa unknown) Aerosol Inhaler (unknown) (no (unknown) (unknown) alcohol intake (units (unknown) date) frequency: unknown) holidays/special occasions only (unknown) (no (unknown) (unknown) alcohol intake: (units (unknown) date) current unknown) (unknown) (no (unknown) (unknown) alprazolam 3 mg (units (unknown) date) tablet,extended 1 mg unknown) PO DAILY 03/05/21 04/26/22 (unknown) (no (unknown) (unknown) alprazolam [Xanax (units (unknown) date) XR] 3 mg Tablet unknown) Extended Release 24 Hr (unknown) (no (unknown) (unknown) and cooperative (units (unknown) date) unknown) (unknown) (no (unknown) (unknown) and given a walker (units (unknown) date) to use for unknown) ambulation. Her x-ray does not show any acute (unknown) (no (unknown) (unknown) and joint space (units (unknown) date) narrowing. Please unknown) follow-up [facility] for evaluation (unknown) (no (unknown) (unknown) and now complaining (unit s (unknown) date) patellar pain and unknown) surrounding pain. She states that pain is (unknown) (no (unknown) (unknown) any numbness or (units (unknown) date) tingling, any unknown) sensation changes, any open wounds, denies any (unknown) (no (unknown) (unknown) appointment at (units ( unknown) date) [facility] unknown) for follow-up for her right knee injury and to (unknown) (no (unknown) (unknown) appointment. Let (units (unknown) date) them know you were unknown) seen in the Emergency Department and that we (unknown) (no (unknown) (unknown) are stable on (units ( unknown) date) repeat examination unknown) is unremarkable. Patient has been informed of (unknown) (no (unknown) (unknown) asked that you be (units (unknown) date) seen for follow-up. unknown) We will electronically transmit a record (unknown) (no (unknown) (unknown) brexpiprazole 2 mg (units (unknown) date) tablet (Rexulti) 1 unknown) mg PO DAILY 03/05/21 04/26/22 (unknown) (no (unknown) (unknown) [place] Allergy (units (unknown) date) Severe Difficulty unknown) Verified 06/12/22 21:48 (unknown) (no (unknown) (unknown) concerning (units (unk nown) date) symptoms, such as unknown) [fever greater than 101F, chills, worsening pain, (unknown) (no (unknown) (unknown) department via EMS (units (unknown) date) for right knee unknown) injury. Patient states that she was on the (unknown) (no (unknown) (unknown) dipyridamole (units (u nknown) date) AdvReac Intermediate unknown) Joint Pain Verified 06/12/22 21:48 (unknown) (no (unknown) (unknown) due to pain. She (units (unknown) date) states that she has unknown) a history of degenerative joint disease in (unknown) (no (unknown) (unknown) eggshell membrane (units (unknown) date) Allergy Intermediate unknown) Abdominal Uncoded 03/08/21 07:16 (unknown) (no (unknown) (unknown) establish care with [place]unit [place] (unknown) [place] [facility] primary care providers. (unknown) (no (unknown) (unknown) eucalyptus Allergy (units (unknown) date) Severe Difficulty unknown) Verified 06/12/22 21:48 (unknown) (no (unknown) (unknown) fall, initial (units ( unknown) date) encounter unknown) (unknown) (no (unknown) (unknown) feel better soon, (units (unknown) date) please use the knee unknown) immobilizer while your upright and (unknown) (no (unknown) (unknown) fluconazole 200 mg (units (unknown) date) tablet 200 mg PO unknown) DAILY #7 tabs 04/27/22 (unknown) (no (unknown) (unknown) fluconazole 200 mg (units (unknown) date) tablet unknown) (unknown) (no (unknown) (unknown) follow-up with her (units (unknown) date) primary care unknown) provider as well. Patient states understanding, (unknown) (no (unknown) (unknown) fracture, it does (units (unknown) date) show severe unknown) degenerative changes, a small knee effusion (unknown) (no (unknown) (unknown) furosemide 40 mg (units (unknown) date) tablet (Lasix) 120 unknown) mg PO DAILY 03/05/21 04/26/22 (unknown) (no (unknown) (unknown) furosemide [Lasix] (units (unknown) date) 40 mg Tablet unknown) (unknown) (no (unknown) (unknown) gabapentin 300 mg (units (unknown) date) capsule 300 mg PO unknown) BEDTIME #14 caps 06/12/22 (unknown) (no (unknown) (unknown) gabapentin 300 mg (units (unknown) date) capsule unknown) (unknown) (no (unknown) (unknown) her bilateral knees (unit s (unknown) date) and states that she unknown) needs a right knee replacement. (unknown) (no (unknown) (unknown) history of (units (unk nown) date) diabetes, denies any unknown) range of motion deficit other than limitations (unknown) (no (unknown) (unknown) household members: (units (unknown) date) family unknown) (unknown) (no (unknown) (unknown) injury of right (units (unknown) date) lower leg, initial unknown) encounter (unknown) (no (unknown) (unknown) is on chronic pain (units (unknown) date) contract, she was unknown) prescribed 10 tabs of Percocet and she (unknown) (no (unknown) (unknown) joint called in (units (unknown) date) effusion, and you unknown) have severe tricompartmental osteoarthritis (unknown) (no (unknown) (unknown) joint space (units (un known) date) narrowing.? No unknown) suspicious bony lesions.? (unknown) (no (unknown) (unknown) ketorolac [From (units (unknown) date) Toradol] Allergy unknown) Verified 06/12/22 21:48 (unknown) (no (unknown) (unknown) knee when she fell (units (unknown) date) and hit the tile. unknown) She has patellar pain and surrounding pain (unknown) (no (unknown) (unknown) legs, (units (unkno wn) date) unknown) (unknown) (no (unknown) (unknown) lidocaine 5 % (units ( unknown) date) adhesive unknown) patch,medicated (unknown) (no (unknown) (unknown) lidocaine 5 % (units ( unknown) date) topical patch 1 unknown) patch topical PRN PRN Pain 04/26/22 04/26/22 (unknown) (no (unknown) (unknown) lisinopril 10 mg (units (unknown) date) Tablet unknown) (unknown) (no (unknown) (unknown) lisinopril 10 mg (units (unknown) date) tablet 10 mg PO unknown) DAILY 03/05/21 04/26/22 (unknown) (no (unknown) (unknown) metformin 500 mg (units (unknown) date) Tablet unknown) (unknown) (no (unknown) (unknown) metformin 500 mg (units (unknown) date) tablet 500 mg PO BID unknown) PRN Hyperglycemia 03/05/21 04/26/22 (unknown) (no (unknown) (unknown) methylprednisolone (units (unknown) date) 4 mg tablets in See unknown) Rx Instructions PO .COMPLEX 06/12/22 (unknown) (no (unknown) (unknown) methylprednisolone (units (unknown) date) [Medrol (Galdino)] 4 mg unknown) tablets,dose pack (unknown) (no (unknown) (unknown) mg tablet (units (unkn own) date) (Percocet) unknown) (unknown) (no (unknown) (unknown) mg tablet 4-6) (units (unknown) date) unknown) (unknown) (no (unknown) (unknown) motion, patient (units (unknown) date) able to flex and unknown) extend her right knee without limitation other (unknown) (no (unknown) (unknown) naproxen AdvReac (units (unknown) date) Intermediate Joint unknown) Pain Verified 06/12/22 21:48 (unknown) (no (unknown) (unknown) nystatin 100,000 (units (unknown) date) unit/gram topical 1 unknown) applic topical BID #14 grams 04/27/22 (unknown) (no (unknown) (unknown) nystatin [Nystop] (units (unknown) date) 100,000 unit/gram unknown) Powder (unknown) (no (unknown) (unknown) obesity, (units (unkno wn) date) osteoarthritis and unknown) psoriatic arthritis, 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 (unknown) (no (unknown) (unknown) orally per package (units (unknown) date) directions unknown) (unknown) (no (unknown) (unknown) orthopedics for the (unit s (unknown) date) next step. Please unknown) let your primary care provider know about (unknown) (no (unknown) (unknown) oxycodone-acetamino (unit s (unknown) date) phen 10 mg-325 1 tab unknown) PO Q3H PRN Pain (Scale Score 04/26/22 (unknown) (no (unknown) (unknown) oxycodone-acetamino (unit s (unknown) date) phen 10-325 mg unknown) tablet (unknown) (no (unknown) (unknown) oxycodone-acetamino (unit s (unknown) date) phen 5 mg-325 1 tab unknown) PO Q8H PRN pain #10 tabs 06/14/22 (unknown) (no (unknown) (unknown) oxycodone-acetamino (unit s (unknown) date) phen [Percocet] unknown) 5-325 mg tablet (unknown) (no (unknown) (unknown) pantoprazole 40 mg (units (unknown) date) tablet,delayed 40 mg unknown) PO QAM PRN Acid Reflux 04/26/22 04/26/22 (unknown) (no (unknown) (unknown) pantoprazole 40 mg (units (unknown) date) tablet,delayed unknown) release (DR/EC) (unknown) (no (unknown) (unknown) persistent vomiting (unit s (unknown) date) or other bothersome unknown) symptoms]. (unknown) (no (unknown) (unknown) porch smoking and (units (unknown) date) tripped, falling unknown) forward onto tile floor with her right knee (unknown) (no (unknown) (unknown) powder (Nystop) (units (unknown) date) unknown) (unknown) (no (unknown) (unknown) providers as (units (u nknown) date) instructed. Patient unknown) understands plan and agrees to discharge home. (unknown) (no (unknown) (unknown) pseudoephedrine (units (unknown) date) AdvReac Intermediate unknown) Joint Pain Verified 06/12/22 21:48 (unknown) (no (unknown) (unknown) rabeprazole 5 mg (units (unknown) date) capsule,delayed 40 unknown) mg PO QAM 03/05/21 04/26/22 (unknown) (no (unknown) (unknown) release 24 hr (units ( unknown) date) (Xanax XR) unknown) (unknown) (no (unknown) (unknown) release sprinkle (units (unknown) date) (AcipHex Sprinkle) unknown) (unknown) (no (unknown) (unknown) release (units (unkno wn) date) unknown) (unknown) (no (unknown) (unknown) results. Patient (units (unknown) date) has been given unknown) strict return to ER precautions for any new or (unknown) (no (unknown) (unknown) right knee with (units (unknown) date) ecchymosis anterior unknown) to the patella, tenderness with palpation (unknown) (no (unknown) (unknown) sertraline 25 mg (units (unknown) date) tablet (Zoloft) 100 unknown) mg PO BID 03/05/21 04/26/22 (unknown) (no (unknown) (unknown) sertraline [Zoloft] (unit s (unknown) date) 25 mg Tablet unknown) (unknown) (no (unknown) (unknown) she had a negative (units (unknown) date) Kelsie[employer] and no unknown) increased laxity with varus and valgus (unknown) (no (unknown) (unknown) she knows she needs (unit s (unknown) date) a right knee unknown) replacement. I encouraged her to schedule an (unknown) (no (unknown) (unknown) surrounding the (units (unknown) date) patella and with any unknown) patellar manipulation, right leg patient (unknown) (no (unknown) (unknown) tenderness or (units ( unknown) date) exquisite tenderness unknown) with exam. (unknown) (no (unknown) (unknown) testing. Patient is (unit s (unknown) date) appropriate and unknown) amenable to discharge home. Vital signs (unknown) (no (unknown) (unknown) than due to pain. (units (unknown) date) There is no open unknown) wound, there is a suprapatellar effusion (unknown) (no (unknown) (unknown) the emergency (units ( unknown) date) department and unknown) received other opioid medications today. Hope you (unknown) (no (unknown) (unknown) tiotropium bromide (units (unknown) date) 18 mcg capsule 1 cap unknown) inhalation DAILY 03/05/21 04/26/22 (unknown) (no (unknown) (unknown) to palpation, she (units (unknown) date) is able to bear unknown) weight and was placed in a knee immobilizer (unknown) (no (unknown) (unknown) tobacco type: (units ( unknown) date) cigarettes unknown) (unknown) (no (unknown) (unknown) tricompartmental (units (unknown) date) osteophytosis and unknown) severe joint space narrowing. Patient states (unknown) (no (unknown) (unknown) understands to (units (unknown) date) discuss this with unknown) her chronic pain specialist, encouraged her to (unknown) (no (unknown) (unknown) use her knee (units (u nknown) date) immobilizer until unknown) she follows up. She has multiple allergies and (unknown) (no (unknown) (unknown) valacyclovir 1 gram (unit s (unknown) date) tablet 1 mg PO QAM unknown) 04/26/22 04/26/22 (unknown) (no (unknown) (unknown) valacyclovir 1 gram (unit s (unknown) date) tablet unknown) (unknown) (no (unknown) (unknown) walking, use a (units (unknown) date) walker or a cane to unknown) help off weight your knee and follow-up with (unknown) (no (unknown) (unknown) wheezing, stridor, (units (unknown) date) or abnormal breath unknown) sounds. No retractions or tachypnea. (unknown) (no (unknown) (unknown) which is palpable, (units (unknown) date) tenderness over MCL unknown) and over LCL. (unknown) (no (unknown) (unknown) who tripped and (units (unknown) date) fell on her porch unknown) this morning after smoking injuring her right (unknown) (no (unknown) (unknown) with HandiHaler) (units (unknown) date) unknown) (unknown) (no (unknown) (unknown) with inhalation (units (unknown) date) device (Spiriva unknown) (unknown) (no (unknown) (unknown) worse with (units (unk nown) date) attempting to bear unknown) weight or with movement and palpation. She denies (unknown) (no (unknown) (unknown) worsening symptoms. (unit s (unknown) date) Patient understands unknown) to follow up closely with outpatient (unknown) (no (unknown) (unknown) your injury in case (unit s (unknown) date) you need any unknown) outpatient services like physical therapy or Result panel 10 (unknown) (no (unknown) (unknown) (no value) (units (unk nown) date) unknown) (unknown) (no (unknown) (unknown) <Electronically (units (unknown) date) signed by Robert unknown) Arminda Zurita> (unknown) (no (unknown) (unknown) (More??) (units (unkno wn) date) unknown) (unknown) (no (unknown) (unknown) (Scale Score 4-6) (units (unknown) date) unknown) (unknown) (no (unknown) (unknown) *If you do not have (unit s (unknown) date) a primary care unknown) provider please contact the [facility] (unknown) (no (unknown) (unknown) *Please continue to (unit s (unknown) date) take your regular unknown) medications as directed. (unknown) (no (unknown) (unknown) *Please follow up (units (unknown) date) with your primary unknown) care provider in 2-3 days, call for an (unknown) (no (unknown) (unknown) *Return to (units (unk nown) date) Emergency Department unknown) if you should have any new, worsening or (unknown) (no (unknown) (unknown) *What to do: (units (u nknown) date) unknown) (unknown) (no (unknown) (unknown) *You have been (units (unknown) date) diagnosed with unknown) [minor injuries related to ground level fall] (unknown) (no (unknown) (unknown) 11/03/21 (units (unkno wn) date) unknown) (unknown) (no (unknown) (unknown) 12/04/19 (units (unkno wn) date) unknown) (unknown) (no (unknown) (unknown) 12/12/19 (units (unkno wn) date) unknown) (unknown) (no (unknown) (unknown) [id number] (units (unkno wn) date) unknown) (unknown) (no (unknown) (unknown) 03/03/22 (units (unkno wn) date) unknown) (unknown) (no (unknown) (unknown) 04/26/22 (units (unkno wn) date) unknown) (unknown) (no (unknown) (unknown) 06/12/22 (units (unkno wn) date) unknown) (unknown) (no (unknown) (unknown) 06/15/22 0259 (units ( unknown) date) unknown) (unknown) (no (unknown) (unknown) 1 applic topical (units (unknown) date) BID Qty: 14 0RF unknown) (unknown) (no (unknown) (unknown) 1 cap INHALATION (units (unknown) date) DAILY unknown) (unknown) (no (unknown) (unknown) 1 mg PO DAILY (units ( unknown) date) unknown) (unknown) (no (unknown) (unknown) 1 mg PO QAM (units (un known) date) unknown) (unknown) (no (unknown) (unknown) 1 patch topical PRN (unit s (unknown) date) PRN (Reason: Pain unknown) (Scale Score 4-6)) (unknown) (no (unknown) (unknown) 1 tab PO Q3H PRN (units (unknown) date) (Reason: Pain (Scale unknown) Score 4-6)) (unknown) (no (unknown) (unknown) 1 tab PO Q8H PRN (units (unknown) date) (Reason: pain) Qty: unknown) 10 0RF (unknown) (no (unknown) (unknown) 10 mg PO DAILY (units (unknown) date) unknown) (unknown) (no (unknown) (unknown) 100 mg PO BID (units ( unknown) date) unknown) (unknown) (no (unknown) (unknown) 12 point review of (units (unknown) date) systems is negative unknown) except for those stated above (unknown) (no (unknown) (unknown) 120 mg PO DAILY (units (unknown) date) unknown) (unknown) (no (unknown) (unknown) [address] [place] [address] (units (unknown) date) unknown) (unknown) (no (unknown) (unknown) 2 puff INHALATION (units (unknown) date) Q4-6H PRN (Reason: unknown) Shortness Of Breath) (unknown) (no (unknown) (unknown) 200 mg PO DAILY (units (unknown) date) Qty: 7 0RF unknown) (unknown) (no (unknown) (unknown) 21:41 (units (unkno wn) date) unknown) (unknown) (no (unknown) (unknown) 300 mg PO BEDTIME (units (unknown) date) Qty: 14 0RF unknown) (unknown) (no (unknown) (unknown) 40 mg PO QAM PRN (units (unknown) date) (Reason: Acid unknown) Reflux) (unknown) (no (unknown) (unknown) 40 mg PO QAM (units (u nknown) date) unknown) (unknown) (no (unknown) (unknown) 52-year-old female (units (unknown) date) with history of unknown) diabetes, fibromyalgia, lupus,, obesity, (unknown) (no (unknown) (unknown) 500 mg PO BID PRN (units (unknown) date) (Reason: unknown) Hyperglycemia) (unknown) (no (unknown) (unknown) ? (units (unkno wn) date) unknown) (unknown) (no (unknown) (unknown) Accession Number: (units (unknown) date) [id number] ?? unknown) (unknown) (no (unknown) (unknown) Accession Number: (units (unknown) date) [id number] ?? unknown) (unknown) (no (unknown) (unknown) Accession Number: (units (unknown) date) [id number] ?? unknown) (unknown) (no (unknown) (unknown) Accession Number: (units (unknown) date) [id number] ?? unknown) (unknown) (no (unknown) (unknown) Acct:[id number] (units (unknown) date) unknown) (unknown) (no (unknown) (unknown) AcipHex Sprinkle 5 (units (unknown) date) mg Capsule, Delayed unknown) Rel Sprinkle (unknown) (no (unknown) (unknown) Activity (units (unkno wn) date) Restrictions/Additio unknown) nal Instructions: (unknown) (no (unknown) (unknown) Age/Sex: 52 / F (units (unknown) date) unknown) (unknown) (no (unknown) (unknown) Allergies (units (unkn own) date) unknown) (unknown) (no (unknown) (unknown) Allergy/AdvReac (units (unknown) date) Type Severity unknown) Reaction Status Date / Time (unknown) (no (unknown) (unknown) [place] [address] (unit s (unknown) date) unknown) (unknown) (no (unknown) (unknown) Antibiotics) (units (u nknown) date) unknown) (unknown) (no (unknown) (unknown) Approved by: Calin (units (unknown) date) Artemio Burks on unknown) 06/12/2022 at 22:22 ? (unknown) (no (unknown) (unknown) Approved by: Calin (units (unknown) date) Artemio Burks on unknown) 06/12/2022 at 22:23 ? (unknown) (no (unknown) (unknown) Approved by: Calin (units (unknown) date) Artemio Burks on unknown) 06/12/2022 at 23:05 ? (unknown) (no (unknown) (unknown) Approved by: Calin (units (unknown) date) Artemio Burks on unknown) 06/12/2022 at 23:07 ? (unknown) (no (unknown) (unknown) Asthma (units (unkno wn) date) unknown) (unknown) (no (unknown) (unknown) BACK: Mild midline (units (unknown) date) lumbar pain on unknown) palpation without obvious step-offs or (unknown) (no (unknown) (unknown) Blood Pressure (units (unknown) date) 133/80 06/12/22 unknown) 21:41 (unknown) (no (unknown) (unknown) Blood Pressure (units (unknown) date) 133/80 unknown) (unknown) (no (unknown) (unknown) Bones:? No (units (unk nown) date) fractures or unknown) dislocations.? No suspicious bony lesions.? Visualized (unknown) (no (unknown) (unknown) Bones:? No (units (unk nown) date) fractures or unknown) dislocations.? No suspicious bony lesions.? (unknown) (no (unknown) (unknown) Bones:? No trauma (units (unknown) date) found. unknown) (unknown) (no (unknown) (unknown) Bones:? There is (units (unknown) date) normal bony unknown) alignment.? No acute vertebral body compression (unknown) (no (unknown) (unknown) Breathing (units (unkn own) date) unknown) (unknown) (no (unknown) (unknown) CARDIOVASCULAR: (units (unknown) date) Denies chest pain, unknown) palpitations, orthopnea, edema, (unknown) (no (unknown) (unknown) CARDIOVASCULAR: (units (unknown) date) Regular rate and unknown) rhythm without murmurs, gallops, or rubs. (unknown) (no (unknown) (unknown) COMPARISON:? [facility] (unit s (unknown) date) [facility], CR, XR unknown) SHOULDER LT MIN 2V, 03/03/2022, 17:40.? (unknown) (no (unknown) (unknown) COMPARISON:? [facility] (unit s (unknown) date) [facility], CR, XR unknown) SHOULDER LT MIN 2V, 06/12/2022, 22:07. (unknown) (no (unknown) (unknown) COMPARISON:? None. (units (unknown) date) unknown) (unknown) (no (unknown) (unknown) CT Scan Report (units (unknown) date) unknown) (unknown) (no (unknown) (unknown) CT scan - (units (unkn own) date) abdomen/pelvis: unknown) (unknown) (no (unknown) (unknown) Chief Complaint: (units (unknown) date) Fall unknown) (unknown) (no (unknown) (unknown) Chronic anemia (units (unknown) date) unknown) (unknown) (no (unknown) (unknown) Clinical (units (unkno wn) date) Impression: unknown) (unknown) (no (unknown) (unknown) Close (units (unkno wn) date) unknown) (unknown) (no (unknown) (unknown) Contusion of left (units (unknown) date) shoulder, Contusion unknown) of hip (unknown) (no (unknown) (unknown) Course (units (unkno wn) date) unknown) (unknown) (no (unknown) (unknown) : 1970 (units (unknown) date) Acct:[id number] unknown) (unknown) (no (unknown) (unknown) : 1970 (units (unknown) date) unknown) (unknown) (no (unknown) (unknown) Date of Service: (units (unknown) date) 06/12/22 unknown) (unknown) (no (unknown) (unknown) Departure (units (unkn own) date) unknown) (unknown) (no (unknown) (unknown) Diabetes mellitus, (units (unknown) date) type 2 unknown) (unknown) (no (unknown) (unknown) Dictated by: Calin (units (unknown) date) Artemio Burks on unknown) 06/12/2022 at 22:22 ? ? (unknown) (no (unknown) (unknown) Dictated by: Calin (units (unknown) date) Artemio Burks on unknown) 06/12/2022 at 22:23 ? ? (unknown) (no (unknown) (unknown) Dictated by: Calin (units (unknown) date) Artemio Burks on unknown) 06/12/2022 at 23:04 ? ? (unknown) (no (unknown) (unknown) Dictated by: Calin (units (unknown) date) Artemio Burks on unknown) 06/12/2022 at 23:06 ? ? (unknown) (no (unknown) (unknown) Discharge Plan (units (unknown) date) unknown) (unknown) (no (unknown) (unknown) Discontinued (units (u nknown) date) Medications unknown) (unknown) (no (unknown) (unknown) Nikolai Gray MD (unit s (unknown) date) [Primary Care unknown) Provider] (unknown) (no (unknown) (unknown) Documented By: KMW (units (unknown) date) unknown) (unknown) (no (unknown) (unknown) ENT: Nose without (units (unknown) date) bleeding, purulent unknown) drainage. Throat without erythema, (unknown) (no (unknown) (unknown) ER Physician: (units ( unknown) date) Robert Zurita D.O. unknown) (unknown) (no (unknown) (unknown) EXTREMITIES: Left (units (unknown) date) shoulder pain on unknown) palpation without obvious deformity, she (unknown) (no (unknown) (unknown) EYES: Pupils equal (units (unknown) date) round and reactive. unknown) Extraocular motions intact. No scleral (unknown) (no (unknown) (unknown) Emergency Report (units (unknown) date) unknown) (unknown) (no (unknown) (unknown) Exam Narrative: (units (unknown) date) unknown) (unknown) (no (unknown) (unknown) Exam (units (unkno wn) date) unknown) (unknown) (no (unknown) (unknown) Extremity x-ray #1: (unit s (unknown) date) unknown) (unknown) (no (unknown) (unknown) FINDINGS:? (units (unk nown) date) unknown) (unknown) (no (unknown) (unknown) Fibromyalgia (units (u nknown) date) unknown) (unknown) (no (unknown) (unknown) GASTROINTESTINAL: (units (unknown) date) Abdomen soft, unknown) non-tender, nondistended. (unknown) (no (unknown) (unknown) GASTROINTESTINAL: (units (unknown) date) Denies nausea, unknown) vomiting, abdominal pain, diarrhea, (unknown) (no (unknown) (unknown) GENERAL: Denies (units (unknown) date) chills, fatigue, unknown) malaise, fever, sweats. (unknown) (no (unknown) (unknown) GENERAL: [52] year (units (unknown) date) old patient appears unknown) stated age. Well-developed patient, in (unknown) (no (unknown) (unknown) : Denies dysuria, (unit s (unknown) date) frequency, unknown) incontinence, hematuria, urinary retention. (unknown) (no (unknown) (unknown) General (units (unkno wn) date) unknown) (unknown) (no (unknown) (unknown) Letha Wolff (units ( unknown) date) unknown) (unknown) (no (unknown) (unknown) HEAD: Atraumatic. (units (unknown) date) Normocephalic. unknown) (unknown) (no (unknown) (unknown) HEENT: Denies sinus (unit s (unknown) date) pain, ear pain, sore unknown) throat, difficulty swallowing, (unknown) (no (unknown) (unknown) HPI - Fall (units (unk nown) date) unknown) (unknown) (no (unknown) (unknown) HPI Narrative: (units (unknown) date) unknown) (unknown) (no (unknown) (unknown) Calin Burks (units (unknown) date) unknown) (unknown) (no (unknown) (unknown) History of Present (units (unknown) date) Illness unknown) (unknown) (no (unknown) (unknown) History of (units (unk nown) date) arthroscopy of right unknown) shoulder (03/08/21) (unknown) (no (unknown) (unknown) History of carpal (units (unknown) date) tunnel release unknown) (unknown) (no (unknown) (unknown) Home Medications (units (unknown) date) unknown) (unknown) (no (unknown) (unknown) Hospital, CR, XR (units (unknown) date) SHOULDER RT MIN 2V, unknown) 12/12/2019, 14:16. (unknown) (no (unknown) (unknown) Hx of abdominal (units (unknown) date) surgery unknown) (unknown) (no (unknown) (unknown) Hx of arthroscopic (units (unknown) date) knee surgery unknown) (unknown) (no (unknown) (unknown) Hx of (units (unkno wn) date) cholecystectomy unknown) (unknown) (no (unknown) (unknown) Hx of foot surgery (units (unknown) date) unknown) (unknown) (no (unknown) (unknown) Hx of lumbosacral (units (unknown) date) spine surgery unknown) (unknown) (no (unknown) (unknown) IMPRESSION:? No (units (unknown) date) trauma found, mild unknown) degenerative disc disease is seen with disc (unknown) (no (unknown) (unknown) IMPRESSION:? No (units (unknown) date) trauma found. unknown) (unknown) (no (unknown) (unknown) IMPRESSION:? No (units (unknown) date) trauma identified. unknown) (unknown) (no (unknown) (unknown) INDICATIONS:? fall (units (unknown) date) with midline back unknown) pain (unknown) (no (unknown) (unknown) INDICATIONS:? fall (units (unknown) date) with severe left hip unknown) pain (unknown) (no (unknown) (unknown) INDICATIONS:? fall (units (unknown) date) unknown) (unknown) (no (unknown) (unknown) Image quality:? (units (unknown) date) Excellent.? unknown) (unknown) (no (unknown) (unknown) Imaging Data (units (u nknown) date) unknown) (unknown) (no (unknown) (unknown) Initial Vital Signs (unit s (unknown) date) unknown) (unknown) (no (unknown) (unknown) Initial Vital (units ( unknown) date) Signs: unknown) (unknown) (no (unknown) (unknown) Instructions: How (units (unknown) date) to Prevent Falls unknown) (unknown) (no (unknown) (unknown) [facility] (units (unknown) date) [address] [place] [address] unknown) [place] [address] (unknown) (no (unknown) (unknown) [facility] (units (unknown) date) unknown) (unknown) (no (unknown) (unknown) [facility] (units (unkno wn) date) unknown) (unknown) (no (unknown) (unknown) [facility] (units (unknown) date) unknown) (unknown) (no (unknown) (unknown) Knee X-Ray (Signed) (unit s (unknown) date) unknown) (unknown) (no (unknown) (unknown) Label Comments: (units (unknown) date) unknown) (unknown) (no (unknown) (unknown) Last Admin: (units (un known) date) 06/13/22 00:01 Dose: unknown) 2 tab (unknown) (no (unknown) (unknown) Launch?Image (units (u nknown) date) unknown) (unknown) (no (unknown) (unknown) [facility] (units (unkno wn) date) unknown) (unknown) (no (unknown) (unknown) Loc: ED (units (unkno wn) date) unknown) (unknown) (no (unknown) (unknown) Lumbar CT: (units (unk nown) date) unknown) (unknown) (no (unknown) (unknown) Lumbar Spine CT (units (unknown) date) (Signed) unknown) (unknown) (no (unknown) (unknown) Lupus (units (unkno wn) date) unknown) (unknown) (no (unknown) (unknown) MDM - Fall (units (unk nown) date) unknown) (unknown) (no (unknown) (unknown) MR#: [id number] (units (unknown) date) unknown) (unknown) (no (unknown) (unknown) MUSCULOSKELETAL: (units (unknown) date) See HPI unknown) (unknown) (no (unknown) (unknown) Medical History (units (unknown) date) (Reviewed 06/15/22 @ unknown) 02:58 by Robert Zurita DO) (unknown) (no (unknown) (unknown) Medication (units (unk nown) date) Instructions unknown) Recorded Confirmed (unknown) (no (unknown) (unknown) Medication (units (unk nown) date) Instructions unknown) Recorded (unknown) (no (unknown) (unknown) 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 Non tender unknown) (unknown) (no (unknown) (unknown) NEURO: AOx3. (units (u nknown) date) unknown) (unknown) (no (unknown) (unknown) NEUROLOGIC: Denies (units (unknown) date) weakness, headache, unknown) numbness, change in speech, confusion, (unknown) (no (unknown) (unknown) Narrative (units (unkn own) date) unknown) (unknown) (no (unknown) (unknown) Narrative: (units (unk nown) date) unknown) (unknown) (no (unknown) (unknown) New (units (unkno wn) date) unknown) (unknown) (no (unknown) (unknown) No Action (units (unkn own) date) unknown) (unknown) (no (unknown) (unknown) No suspicious lytic (unit s (unknown) date) or blastic bony unknown) lesions.? No pars defects.? (unknown) (no (unknown) (unknown) Noncontrast 3 mm (units (unknown) date) axial sections unknown) acquired through the bony pelvis, with coronal (unknown) (no (unknown) (unknown) Noncontrast 3 mm (units (unknown) date) thick sections unknown) acquired from the T12 level to the sacrum.? (unknown) (no (unknown) (unknown) Obesity, morbid, (units (unknown) date) BMI 50 or higher unknown) (unknown) (no (unknown) (unknown) Ordered: (units (unkno wn) date) unknown) (unknown) (no (unknown) (unknown) Ordering Provider: (units (unknown) date) Robert Zurita D.O. unknown) (unknown) (no (unknown) (unknown) Orders (units (unkno wn) date) unknown) (unknown) (no (unknown) (unknown) Osteoarthritis (units (unknown) date) unknown) (unknown) (no (unknown) (unknown) Oxycodone/Acetamino (unit s (unknown) date) phen unknown) (Oxycodone/Acetamino phen 5/325 Tablet) 2 tab PO NOW ONE (unknown) (no (unknown) (unknown) Oxygen Delivery (units (unknown) date) Method 06/12/22 unknown) 21:41 (unknown) (no (unknown) (unknown) Oxygen Delivery (units (unknown) date) Method Room Air unknown) (unknown) (no (unknown) (unknown) PROCEDURE:? CT (units (unknown) date) LUMBAR SPINE WO CON unknown) (unknown) (no (unknown) (unknown) PROCEDURE:? CT PEL (units (unknown) date) WO CON unknown) (unknown) (no (unknown) (unknown) PROCEDURE:? XR (units (unknown) date) PELVIS 1-2V unknown) (unknown) (no (unknown) (unknown) PROCEDURE:? XR (units (unknown) date) SHOULDER LT MIN 2V unknown) (unknown) (no (unknown) (unknown) PSYCHIATRIC: No (units (unknown) date) concerning unknown) psychosocial issues. (unknown) (no (unknown) (unknown) Pain (units (unkno wn) date) unknown) (unknown) (no (unknown) (unknown) Patient (units (unkno wn) date) Disposition: Home unknown) (unknown) (no (unknown) (unknown) Patient History (units (unknown) date) unknown) (unknown) (no (unknown) (unknown) Patient: (units (unkno wn) date) Rosa Ramon MR#: unknown) M00 (unknown) (no (unknown) (unknown) Patient: (units (unkno wn) date) Rosa Ramon unknown) (unknown) (no (unknown) (unknown) Pelvis CT (Signed) (units (unknown) date) unknown) (unknown) (no (unknown) (unknown) Pelvis X-Ray (units (u nknown) date) (Signed) unknown) (unknown) (no (unknown) (unknown) Pelvis: (units (unkno wn) date) unknown) (unknown) (no (unknown) (unknown) Penicillins Allergy (unit s (unknown) date) Severe Difficulty unknown) Verified 06/12/22 21:48 (unknown) (no (unknown) (unknown) Prescriptions: (units (unknown) date) unknown) (unknown) (no (unknown) (unknown) Previous Rx's (units ( unknown) date) unknown) (unknown) (no (unknown) (unknown) Procedure: CT (units ( unknown) date) lumbar spine wo con unknown) (unknown) (no (unknown) (unknown) Procedure: CT (units ( unknown) date) pelvis wo con unknown) (unknown) (no (unknown) (unknown) Procedure: XR (units ( unknown) date) pelvis 1-2V unknown) (unknown) (no (unknown) (unknown) Procedure: XR (units ( unknown) date) shoulder LT min 2V unknown) (unknown) (no (unknown) (unknown) Psoriatic arthritis (unit s (unknown) date) unknown) (unknown) (no (unknown) (unknown) Pulse Oximetry 99 (units (unknown) date) 06/12/22 21:41 unknown) (unknown) (no (unknown) (unknown) Pulse Oximetry 99 (units (unknown) date) unknown) (unknown) (no (unknown) (unknown) Pulse Rate 82 (units ( unknown) date) 06/12/22 21:41 unknown) (unknown) (no (unknown) (unknown) Pulse Rate 82 (units ( unknown) date) unknown) (unknown) (no (unknown) (unknown) RESPIRATORY: Clear (units (unknown) date) to auscultation. unknown) Breath sounds equal bilaterally. No wheezes, (unknown) (no (unknown) (unknown) RESPIRATORY: Denies (unit s (unknown) date) dyspnea, cough, unknown) wheezing, hemoptysis, sputum. (unknown) (no (unknown) (unknown) Radiologist's (units ( unknown) date) Impression: unknown) (unknown) (no (unknown) (unknown) Referrals: (units (unk nown) date) unknown) (unknown) (no (unknown) (unknown) Related Data (units (u nknown) date) unknown) (unknown) (no (unknown) (unknown) Resource line at (units (unknown) date) [phone]. They unknown) will ask some questions about your medical (unknown) (no (unknown) (unknown) Respiratory Rate 20 (unit s (unknown) date) 06/12/22 21:41 unknown) (unknown) (no (unknown) (unknown) Respiratory Rate 20 (unit s (unknown) date) unknown) (unknown) (no (unknown) (unknown) Review of Systems (units (unknown) date) unknown) (unknown) (no (unknown) (unknown) Rexulti 2 mg Tablet (unit s (unknown) date) unknown) (unknown) (no (unknown) (unknown) Rx Instructions: (units (unknown) date) unknown) (unknown) (no (unknown) (unknown) SKIN: Denies rash, (units (unknown) date) skin lesions, or unknown) other (unknown) (no (unknown) (unknown) SKIN: No rash or (units (unknown) date) erythema of visible unknown) areas (unknown) (no (unknown) (unknown) Sagittal and (units (u nknown) date) unknown) (unknown) (no (unknown) (unknown) See Rx Instructions (unit s (unknown) date) .ROUTE .COMPLEX Qty: unknown) 21 0RF (unknown) (no (unknown) (unknown) Shoulder X-Ray (units (unknown) date) (Signed) unknown) (unknown) (no (unknown) (unknown) Signed By: (units (unk nown) date) unknown) (unknown) (no (unknown) (unknown) Signed (units (unkno wn) date) unknown) (unknown) (no (unknown) (unknown) Smoking Status: (units (unknown) date) Current every day unknown) smoker (unknown) (no (unknown) (unknown) Social History (units (unknown) date) (Reviewed 06/15/22 @ unknown) 02:58 by Robert Zurita DO) (unknown) (no (unknown) (unknown) Soft tissues:? No (units (unknown) date) hematoma or evidence unknown) soft tissue contusion found. (unknown) (no (unknown) (unknown) Soft tissues:? No (units (unknown) date) retroperitoneal unknown) masses or hematomas.? Visualized aorta is (unknown) (no (unknown) (unknown) Soft tissues:? No (units (unknown) date) suspicious soft unknown) tissue calcifications.? (unknown) (no (unknown) (unknown) Soft tissues:? (units (unknown) date) Visualized bowel gas unknown) pattern is normal.? No suspicious soft (unknown) (no (unknown) (unknown) Source: EMS (units (un known) date) unknown) (unknown) (no (unknown) (unknown) Spiriva with (units (u nknown) date) HandiHaler 18 mcg unknown) Capsule, W/Inhalation Device (unknown) (no (unknown) (unknown) Stated Complaint: (units (unknown) date) rt shoulder pain unknown) (unknown) (no (unknown) (unknown) Stop: 06/12/22 (units (unknown) date) 23:51 unknown) (unknown) (no (unknown) (unknown) Substance Use Type: (unit s (unknown) date) does not use unknown) (unknown) (no (unknown) (unknown) Sulfa (Sulfonamide (units (unknown) date) AdvReac Intermediate unknown) Joint Pain Verified 06/12/22 21:48 (unknown) (no (unknown) (unknown) Surgical History (units (unknown) date) (Reviewed 06/15/22 @ unknown) 02:58 by Robert Zurita DO) (unknown) (no (unknown) (unknown) TABLETS . (units (unkn own) date) unknown) (unknown) (no (unknown) (unknown) TAKE 1 TABLET BY (units (unknown) date) MOUTH DAILY unknown) (unknown) (no (unknown) (unknown) TAKE 1 TABLET BY (units (unknown) date) MOUTH EVERY 4 TO 6 unknown) HOURS NEEDED . MAXIMUM DAILY DOSE IS 5 (unknown) (no (unknown) (unknown) TAKE 1 TABLET BY (units (unknown) date) MOUTH EVERY DAY unknown) (unknown) (no (unknown) (unknown) TECHNIQUE:? 3 views (unit s (unknown) date) of the shoulder were unknown) acquired.? (unknown) (no (unknown) (unknown) TECHNIQUE:? Single (units (unknown) date) view(s) of the unknown) pelvis acquired.? (unknown) (no (unknown) (unknown) TECHNIQUE:? (units (un known) date) unknown) (unknown) (no (unknown) (unknown) Telemetry Strips (units (unknown) date) unknown) (unknown) (no (unknown) (unknown) Temperature 98.6 F (units (unknown) date) 06/12/22 21:41 unknown) (unknown) (no (unknown) (unknown) Temperature 98.6 F (units (unknown) date) unknown) (unknown) (no (unknown) (unknown) Time Seen by (units (u nknown) date) Provider: 06/12/22 unknown) 22:18 (unknown) (no (unknown) (unknown) Upper Extremity CT (units (unknown) date) (Signed) unknown) (unknown) (no (unknown) (unknown) Visit Report Forms: (unit s (unknown) date) Patient Portal/API unknown) (unknown) (no (unknown) (unknown) Vital Signs - 8 hr (units (unknown) date) unknown) (unknown) (no (unknown) (unknown) Vital Signs (units (un known) date) unknown) (unknown) (no (unknown) (unknown) Vital signs: (units (u nknown) date) unknown) (unknown) (no (unknown) (unknown) XRay Report (units (un known) date) unknown) (unknown) (no (unknown) (unknown) [ ] New medication (units (unknown) date) written as a paper unknown) prescription (unknown) (no (unknown) (unknown) [ ] No new (units (unk nown) date) medications given unknown) (unknown) (no (unknown) (unknown) [ x] New medication (unit s (unknown) date) prescriptions sent unknown) to your pharmacy: [[facility] ] (unknown) (no (unknown) (unknown) a dose pack (Medrol (unit s (unknown) date) (Galdino)) #21 ea unknown) (unknown) (no (unknown) (unknown) admit to some (units ( unknown) date) developing midline unknown) back pain. She denies any loss of control of (unknown) (no (unknown) (unknown) aerosol inhaler (units (unknown) date) Shortness Of Breath unknown) (unknown) (no (unknown) (unknown) albuterol sulfate 90 (unit s (unknown) date) mcg/actuation 2 puff unknown) inhalation Q4-6H PRN 03/05/21 04/26/22 (unknown) (no (unknown) (unknown) albuterol sulfate (units (unknown) date) 90 mcg/actuation Hfa unknown) Aerosol Inhaler (unknown) (no (unknown) (unknown) alcohol intake (units (unknown) date) frequency: unknown) holidays/special occasions only (unknown) (no (unknown) (unknown) alcohol intake: (units (unknown) date) current unknown) (unknown) (no (unknown) (unknown) alprazolam 3 mg (units (unknown) date) tablet,extended 1 mg unknown) PO DAILY 03/05/21 04/26/22 (unknown) (no (unknown) (unknown) alprazolam [Xanax (units (unknown) date) XR] 3 mg Tablet unknown) Extended Release 24 Hr (unknown) (no (unknown) (unknown) ambulance. She (units (unknown) date) denies any head neck unknown) or back pain initially but later on does (unknown) (no (unknown) (unknown) and (units (unkno wn) date) unknown) (unknown) (no (unknown) (unknown) anxiety, (units (unkno wn) date) depression, and unknown) chronic pain who presents to the emergency department (unknown) (no (unknown) (unknown) appear intact.? (units (unknown) date) unknown) (unknown) (no (unknown) (unknown) appointment. Let (units (unknown) date) them know you were unknown) seen in the Emergency Department and that we (unknown) (no (unknown) (unknown) ask that you be (units (unknown) date) seen in follow up. unknown) We will electronically transmit a record of (unknown) (no (unknown) (unknown) both regions with (units (unknown) date) palpation and range unknown) of motion. She currently is stating that (unknown) (no (unknown) (unknown) bowel or bladder (units (unknown) date) nor extremity unknown) numbness, tingling or weakness. She denies any (unknown) (no (unknown) (unknown) brexpiprazole 2 mg (units (unknown) date) tablet (Rexulti) 1 unknown) mg PO DAILY 03/05/21 04/26/22 (unknown) (no (unknown) (unknown) calcifications.? (units (unknown) date) unknown) (unknown) (no (unknown) (unknown) caliber.? (units (unkn own) date) unknown) (unknown) (no (unknown) (unknown) [place] Allergy (units (unknown) date) Severe Difficulty unknown) Verified 06/12/22 21:48 (unknown) (no (unknown) (unknown) concerning (units (unk nown) date) symptoms, such as unknown) [fever greater than 101 F, shaking chills, (unknown) (no (unknown) (unknown) constipation, (units ( unknown) date) melena. unknown) (unknown) (no (unknown) (unknown) coronal reformats (units (unknown) date) were constructed.? unknown) For radiation dose reduction, the following (unknown) (no (unknown) (unknown) crepitance. No (units (unknown) date) numbness, tingling unknown) or weakness, no saddle anesthesia. (unknown) (no (unknown) (unknown) dipyridamole (units (u nknown) date) AdvReac Intermediate unknown) Joint Pain Verified 06/12/22 21:48 (unknown) (no (unknown) (unknown) dizziness. (units (unk nown) date) unknown) (unknown) (no (unknown) (unknown) does have full but (units (unknown) date) painful range of unknown) motion. No elbow or wrist pain. She does (unknown) (no (unknown) (unknown) eggshell membrane (units (unknown) date) Allergy Intermediate unknown) Abdominal Uncoded 03/08/21 07:16 (unknown) (no (unknown) (unknown) eucalyptus Allergy (units (unknown) date) Severe Difficulty unknown) Verified 06/12/22 21:48 (unknown) (no (unknown) (unknown) fluconazole 200 mg (units (unknown) date) tablet 200 mg PO unknown) DAILY #7 tabs 04/27/22 (unknown) (no (unknown) (unknown) fluconazole 200 mg (units (unknown) date) tablet unknown) (unknown) (no (unknown) (unknown) fractures.? (units (un known) date) unknown) (unknown) (no (unknown) (unknown) furosemide 40 mg (units (unknown) date) tablet (Lasix) 120 unknown) mg PO DAILY 03/05/21 04/26/22 (unknown) (no (unknown) (unknown) furosemide [Lasix] (units (unknown) date) 40 mg Tablet unknown) (unknown) (no (unknown) (unknown) gabapentin 300 mg (units (unknown) date) capsule 300 mg PO unknown) BEDTIME #14 caps 06/12/22 (unknown) (no (unknown) (unknown) gabapentin 300 mg (units (unknown) date) capsule unknown) (unknown) (no (unknown) (unknown) have pain on (units (u nknown) date) palpation of left unknown) hip though no obvious deformity, shortening or (unknown) (no (unknown) (unknown) height (units (unkno wn) date) unknown) (unknown) (no (unknown) (unknown) history and help (units (unknown) date) get you set up with unknown) a doctor in the community. (unknown) (no (unknown) (unknown) household members: (units (unknown) date) family unknown) (unknown) (no (unknown) (unknown) icterus. No (units (un known) date) injection or unknown) drainage. (unknown) (no (unknown) (unknown) impingement. (units (u nknown) date) unknown) (unknown) (no (unknown) (unknown) ketorolac [From (units (unknown) date) Toradol] Allergy unknown) Verified 06/12/22 21:48 (unknown) (no (unknown) (unknown) lidocaine 5 % (units ( unknown) date) adhesive unknown) patch,medicated (unknown) (no (unknown) (unknown) lidocaine 5 % (units ( unknown) date) topical patch 1 unknown) patch topical PRN PRN Pain 04/26/22 04/26/22 (unknown) (no (unknown) (unknown) lisinopril 10 mg (units (unknown) date) Tablet unknown) (unknown) (no (unknown) (unknown) lisinopril 10 mg (units (unknown) date) tablet 10 mg PO unknown) DAILY 03/05/21 04/26/22 (unknown) (no (unknown) (unknown) metformin 500 mg (units (unknown) date) Tablet unknown) (unknown) (no (unknown) (unknown) metformin 500 mg (units (unknown) date) tablet 500 mg PO BID unknown) PRN Hyperglycemia 03/05/21 04/26/22 (unknown) (no (unknown) (unknown) methylprednisolone (units (unknown) date) 4 mg tablets in See unknown) Rx Instructions PO .COMPLEX 06/12/22 (unknown) (no (unknown) (unknown) methylprednisolone (units (unknown) date) [Medrol (Galdino)] 4 mg unknown) tablets,dose pack (unknown) (no (unknown) (unknown) mg tablet (units (unkn own) date) (Percocet) unknown) (unknown) (no (unknown) (unknown) mg tablet 4-6) (units (unknown) date) unknown) (unknown) (no (unknown) (unknown) mild distress. (units (unknown) date) unknown) (unknown) (no (unknown) (unknown) naproxen AdvReac (units (unknown) date) Intermediate Joint unknown) Pain Verified 06/12/22 21:48 (unknown) (no (unknown) (unknown) normal in (units (unkn own) date) unknown) (unknown) (no (unknown) (unknown) nystatin 100,000 (units (unknown) date) unit/gram topical 1 unknown) applic topical BID #14 grams 04/27/22 (unknown) (no (unknown) (unknown) nystatin [Nystop] (units (unknown) date) 100,000 unit/gram unknown) Powder (unknown) (no (unknown) (unknown) on her CT. 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, MRSA, (unknown) (no (unknown) (unknown) oxycodone-acetamino (unit s (unknown) date) phen 10 mg-325 1 tab unknown) PO Q3H PRN Pain (Scale Score 04/26/22 (unknown) (no (unknown) (unknown) oxycodone-acetamino (unit s (unknown) date) phen 10-325 mg unknown) tablet (unknown) (no (unknown) (unknown) oxycodone-acetamino (unit s (unknown) date) phen 5 mg-325 1 tab unknown) PO Q8H PRN pain #10 tabs 06/14/22 (unknown) (no (unknown) (unknown) oxycodone-acetamino (unit s (unknown) date) phen [Percocet] unknown) 5-325 mg tablet (unknown) (no (unknown) (unknown) pantoprazole 40 mg (units (unknown) date) tablet,delayed 40 mg unknown) PO QAM PRN Acid Reflux 04/26/22 04/26/22 (unknown) (no (unknown) (unknown) pantoprazole 40 mg (units (unknown) date) tablet,delayed unknown) release (DR/EC) (unknown) (no (unknown) (unknown) powder (Nystop) (units (unknown) date) unknown) (unknown) (no (unknown) (unknown) prodromal symptoms (units (unknown) date) such as dizziness, unknown) weakness or lightheadedness (unknown) (no (unknown) (unknown) pseudoephedrine (units (unknown) date) AdvReac Intermediate unknown) Joint Pain Verified 06/12/22 21:48 (unknown) (no (unknown) (unknown) rabeprazole 5 mg (units (unknown) date) capsule,delayed 40 unknown) mg PO QAM 03/05/21 04/26/22 (unknown) (no (unknown) (unknown) rales, or rhonchi. (units (unknown) date) unknown) (unknown) (no (unknown) (unknown) reduction present (units (unknown) date) at L4-5 and L5-S1 unknown) but without subluxation or definite nerve (unknown) (no (unknown) (unknown) release 24 hr (units ( unknown) date) (Xanax XR) unknown) (unknown) (no (unknown) (unknown) release sprinkle (units (unknown) date) (AcipHex Sprinkle) unknown) (unknown) (no (unknown) (unknown) release (units (unkno wn) date) unknown) (unknown) (no (unknown) (unknown) ribs (units (unkno wn) date) unknown) (unknown) (no (unknown) (unknown) root (units (unkno wn) date) unknown) (unknown) (no (unknown) (unknown) rotation. (units (unkn own) date) unknown) (unknown) (no (unknown) (unknown) roxen, (units (unkno wn) date) pseudoephedrine, unknown) Sulfa (Sulfonamide Antibiotics), [eggshell membrane] (unknown) (no (unknown) (unknown) sagittal (units (unkno wn) date) reformatting.? unknown) (unknown) (no (unknown) (unknown) seizures, (units (unkn own) date) incoordination. unknown) (unknown) (no (unknown) (unknown) sertraline 25 mg (units (unknown) date) tablet (Zoloft) 100 unknown) mg PO BID 03/05/21 04/26/22 (unknown) (no (unknown) (unknown) sertraline [Zoloft] (unit s (unknown) date) 25 mg Tablet unknown) (unknown) (no (unknown) (unknown) she is unable to (units (unknown) date) ambulate, however unknown) she did walk down stairs to get to the (unknown) (no (unknown) (unknown) tiotropium bromide (units (unknown) date) 18 mcg capsule 1 cap unknown) inhalation DAILY 03/05/21 04/26/22 (unknown) (no (unknown) (unknown) tissue (units (unkno wn) date) unknown) (unknown) (no (unknown) (unknown) tobacco type: (units ( unknown) date) cigarettes unknown) (unknown) (no (unknown) (unknown) today's note if (units (unknown) date) your PCP is in our unknown) system (unknown) (no (unknown) (unknown) tonsillar (units (unkn own) date) hypertrophy or unknown) exudate. Airway patent. (unknown) (no (unknown) (unknown) used:? automated (units (unknown) date) exposure control.? unknown) (unknown) (no (unknown) (unknown) valacyclovir 1 gram (unit s (unknown) date) tablet 1 mg PO QAM unknown) 04/26/22 04/26/22 (unknown) (no (unknown) (unknown) valacyclovir 1 gram (unit s (unknown) date) tablet unknown) (unknown) (no (unknown) (unknown) was (units (unkno wn) date) unknown) (unknown) (no (unknown) (unknown) with HandiHaler) (units (unknown) date) unknown) (unknown) (no (unknown) (unknown) with a chief (units (u nknown) date) complaint of a unknown) ground level fall in which she fell after tripping (unknown) (no (unknown) (unknown) with inhalation (units (unknown) date) device (Spiriva unknown) (unknown) (no (unknown) (unknown) worsening pain, (units (unknown) date) persistent vomiting unknown) or other bothersome symptoms] Result panel 11 (unknown) (no (unknown) (unknown) (no value) (units (unk nown) date) unknown) (unknown) (no (unknown) (unknown) <Electronically (units (unknown) date) signed by Daija Gallardo unknown) [employer]> (unknown) (no (unknown) (unknown) (Scale Score 4-6) (units (unknown) date) unknown) (unknown) (no (unknown) (unknown) *If you do not have (unit s (unknown) date) a primary care unknown) provider please contact [phone] to (unknown) (no (unknown) (unknown) *Please continue to (unit s (unknown) date) take your regular unknown) medications as directed. (unknown) (no (unknown) (unknown) *Please follow up (units (unknown) date) with your primary unknown) care provider in 2-3 days, call for an (unknown) (no (unknown) (unknown) *Return to (units (unk nown) date) Emergency Department unknown) if you should have any new, worsening, or (unknown) (no (unknown) (unknown) *What to do: (units (u nknown) date) unknown) (unknown) (no (unknown) (unknown) *You have been (units (unknown) date) diagnosed with a unknown) right knee injury which shows fluid within the (unknown) (no (unknown) (unknown) [id number] (units (unkno wn) date) unknown) (unknown) (no (unknown) (unknown) 04/26/22 (units (unkno wn) date) unknown) (unknown) (no (unknown) (unknown) 06/14/22 1559 (units ( unknown) date) unknown) (unknown) (no (unknown) (unknown) 06/14/22 (units (unkno wn) date) unknown) (unknown) (no (unknown) (unknown) 1 applic topical (units (unknown) date) BID Qty: 14 0RF unknown) (unknown) (no (unknown) (unknown) 1 cap INHALATION (units (unknown) date) DAILY unknown) (unknown) (no (unknown) (unknown) 1 mg PO DAILY (units ( unknown) date) unknown) (unknown) (no (unknown) (unknown) 1 mg PO QAM (units (un known) date) unknown) (unknown) (no (unknown) (unknown) 1 patch topical PRN (unit s (unknown) date) PRN (Reason: Pain unknown) (Scale Score 4-6)) (unknown) (no (unknown) (unknown) 1 tab PO Q3H PRN (units (unknown) date) (Reason: Pain (Scale unknown) Score 4-6)) (unknown) (no (unknown) (unknown) 1 tab PO Q8H PRN (units (unknown) date) (Reason: pain) Qty: unknown) 10 0RF (unknown) (no (unknown) (unknown) 10 mg PO DAILY (units (unknown) date) unknown) (unknown) (no (unknown) (unknown) 100 mg PO BID (units ( unknown) date) unknown) (unknown) (no (unknown) (unknown) 120 mg PO DAILY (units (unknown) date) unknown) (unknown) (no (unknown) (unknown) 13:06 (units (unkno wn) date) unknown) (unknown) (no (unknown) (unknown) 2 puff INHALATION (units (unknown) date) Q4-6H PRN (Reason: unknown) Shortness Of Breath) (unknown) (no (unknown) (unknown) 200 mg PO DAILY (units (unknown) date) Qty: 7 0RF unknown) (unknown) (no (unknown) (unknown) 300 mg PO BEDTIME (units (unknown) date) Qty: 14 0RF unknown) (unknown) (no (unknown) (unknown) 40 mg PO QAM PRN (units (unknown) date) (Reason: Acid unknown) Reflux) (unknown) (no (unknown) (unknown) 40 mg PO QAM (units (u nknown) date) unknown) (unknown) (no (unknown) (unknown) 500 mg PO BID PRN (units (unknown) date) (Reason: unknown) Hyperglycemia) (unknown) (no (unknown) (unknown) ? (units (unkno wn) date) unknown) (unknown) (no (unknown) (unknown) AcipHex Sprinkle 5 (units (unknown) date) mg Capsule, Delayed unknown) Rel Sprinkle (unknown) (no (unknown) (unknown) Activity (units (unkno wn) date) Restrictions/Additio unknown) nal Instructions: (unknown) (no (unknown) (unknown) Age/Sex: 52 / F (units (unknown) date) unknown) (unknown) (no (unknown) (unknown) All questions and (units (unknown) date) concerns answered at unknown) this time. (unknown) (no (unknown) (unknown) Allergies (units (unkn own) date) unknown) (unknown) (no (unknown) (unknown) Allergy/AdvReac (units (unknown) date) Type Severity unknown) Reaction Status Date / Time (unknown) (no (unknown) (unknown) Antibiotics) (units (u nknown) date) unknown) (unknown) (no (unknown) (unknown) Approved by: Jovanny (units (unknown) date) Artemio Hannah on unknown) 06/14/2022 at 14:01 ? (unknown) (no (unknown) (unknown) Asthma (units (unkno wn) date) unknown) (unknown) (no (unknown) (unknown) Blood Pressure (units (unknown) date) 128/75 06/14/22 unknown) 13:06 (unknown) (no (unknown) (unknown) Blood Pressure (units (unknown) date) unknown) (unknown) (no (unknown) (unknown) Bones:? No (units (unk nown) date) fractures or unknown) dislocations.? Severe tricompartmental osteophytosis.? (unknown) (no (unknown) (unknown) Breathing (units (unkn own) date) unknown) (unknown) (no (unknown) (unknown) [facility], [facility], XR unknown) [facility]NEE RT 3V, 03/03/2022, 17:40. (unknown) (no (unknown) (unknown) Cardiovascular: (units (unknown) date) regular rate and unknown) rhythm, no peripheral edema, warm extremities (unknown) (no (unknown) (unknown) Chief Complaint: (units (unknown) date) Extremity Injury, unknown) Lower (unknown) (no (unknown) (unknown) Chronic anemia (units (unknown) date) unknown) (unknown) (no (unknown) (unknown) Clinical (units (unkno wn) date) Impression: unknown) (unknown) (no (unknown) (unknown) Course (units (unkno wn) date) unknown) (unknown) (no (unknown) (unknown) : 1970 (units (unknown) date) Acct:[id number] unknown) (unknown) (no (unknown) (unknown) Date of Service: (units (unknown) date) 06/14/22 unknown) (unknown) (no (unknown) (unknown) Departure (units (unkn own) date) unknown) (unknown) (no (unknown) (unknown) Diabetes mellitus, (units (unknown) date) type 2 unknown) (unknown) (no (unknown) (unknown) Dictated by: Jovanny (units (unknown) date) Artemio Hannah on unknown) 06/14/2022 at 13:59 ? ? (unknown) (no (unknown) (unknown) Discharge Plan (units (unknown) date) unknown) (unknown) (no (unknown) (unknown) Discontinued (units (u nknown) date) Medications unknown) (unknown) (no (unknown) (unknown) Nikolai Gray MD (unit s (unknown) date) [Primary Care unknown) Provider] (unknown) (no (unknown) (unknown) Documented By: ADK (units (unknown) date) unknown) (unknown) (no (unknown) (unknown) Documented By: BS (units (unknown) date) unknown) (unknown) (no (unknown) (unknown) ER Physician: (units ( unknown) date) Daija Rosales unknown) (unknown) (no (unknown) (unknown) Effusion of knee (units (unknown) date) joint unknown) (unknown) (no (unknown) (unknown) Emergency Report (units (unknown) date) unknown) (unknown) (no (unknown) (unknown) Encounter type: (units (unknown) date) initial encounter unknown) Qualified Code(s): S89.91XA - Unspecified (unknown) (no (unknown) (unknown) Encounter type: (units (unknown) date) initial encounter unknown) Qualified Code(s): W19.XXXA - Unspecified (unknown) (no (unknown) (unknown) Exam Narrative: (units (unknown) date) unknown) (unknown) (no (unknown) (unknown) Exam (units (unkno wn) date) unknown) (unknown) (no (unknown) (unknown) Extremity x-ray #1: (unit s (unknown) date) unknown) (unknown) (no (unknown) (unknown) FINDINGS:? (units (unk nown) date) unknown) (unknown) (no (unknown) (unknown) Fall (units (unkno wn) date) unknown) (unknown) (no (unknown) (unknown) Fibromyalgia (units (u nknown) date) unknown) (unknown) (no (unknown) (unknown) GI: abdomen soft, (units (unknown) date) nontender to unknown) palpation, nondistended, without masses, rebound (unknown) (no (unknown) (unknown) General (units (unkno wn) date) unknown) (unknown) (no (unknown) (unknown) General: (units (unkno wn) date) cooperative, unknown) uncomfortable, in acute distress, dirty feet and lower (unknown) (no (unknown) (unknown) HEENT: symmetrical (units (unknown) date) facial expressions, unknown) moist mucous membranes (unknown) (no (unknown) (unknown) HPI - Extremity (units (unknown) date) Injury (Lower) unknown) (unknown) (no (unknown) (unknown) HPI Narrative: (units (unknown) date) unknown) (unknown) (no (unknown) (unknown) HPI (units (unkno wn) date) unknown) (unknown) (no (unknown) (unknown) History of Present (units (unknown) date) Illness unknown) (unknown) (no (unknown) (unknown) History of (units (unk nown) date) arthroscopy of right unknown) shoulder (03/08/21) (unknown) (no (unknown) (unknown) History of carpal (units (unknown) date) tunnel release unknown) (unknown) (no (unknown) (unknown) Home Medications (units (unknown) date) unknown) (unknown) (no (unknown) (unknown) Hx of abdominal (units (unknown) date) surgery unknown) (unknown) (no (unknown) (unknown) Hx of arthroscopic (units (unknown) date) knee surgery unknown) (unknown) (no (unknown) (unknown) Hx of (units (unkno wn) date) cholecystectomy unknown) (unknown) (no (unknown) (unknown) Hx of foot surgery (units (unknown) date) unknown) (unknown) (no (unknown) (unknown) Hx of lumbosacral (units (unknown) date) spine surgery unknown) (unknown) (no (unknown) (unknown) Hydromorphone HCl (units (unknown) date) (Hydromorphone 0.5 unknown) Mg Inj) 0.5 mg IV NOW ONE (unknown) (no (unknown) (unknown) IMPRESSION:? (units (u nknown) date) unknown) (unknown) (no (unknown) (unknown) INDICATIONS:? fall (units (unknown) date) unknown) (unknown) (no (unknown) (unknown) If concern for (units (unknown) date) occult fracture unknown) consider CT for further evaluation (unknown) (no (unknown) (unknown) Imaging Data (units (u nknown) date) unknown) (unknown) (no (unknown) (unknown) Immobilizer (units (un known) date) unknown) (unknown) (no (unknown) (unknown) Initial Vital Signs (unit s (unknown) date) unknown) (unknown) (no (unknown) (unknown) Initial Vital (units ( unknown) date) Signs: unknown) (unknown) (no (unknown) (unknown) Injury of right (units (unknown) date) patella unknown) (unknown) (no (unknown) (unknown) Instructions: (units ( unknown) date) Osteoarthritis, DI unknown) for Knee Effusion, How to Use a Knee (unknown) (no (unknown) (unknown) [facility] (units (unknown) date) [address] unknown) [place] [address] (unknown) (no (unknown) (unknown) Label Comments: (units (unknown) date) unknown) (unknown) (no (unknown) (unknown) Last Admin: (units (un known) date) 06/14/22 14:20 Dose: unknown) 0.5 mg (unknown) (no (unknown) (unknown) Last Admin: (units (un known) date) 06/14/22 14:42 Dose: unknown) 2 tab (unknown) (no (unknown) (unknown) Last Admin: (units (un known) date) 06/14/22 15:25 Dose: unknown) 0.5 mg (unknown) (no (unknown) (unknown) Laterality: right (units (unknown) date) Qualified Code(s): unknown) M25.461 - Effusion, right knee (unknown) (no (unknown) (unknown) Lupus (units (unkno wn) date) unknown) (unknown) (no (unknown) (unknown) MDM - Extremity (units (unknown) date) Injury (Lower) unknown) (unknown) (no (unknown) (unknown) MDM Narrative (units ( unknown) date) unknown) (unknown) (no (unknown) (unknown) MRSA, anxiety, (units (unknown) date) depression, and unknown) chronic pain who presents to the emergency (unknown) (no (unknown) (unknown) MSK: moves all (units (unknown) date) extremities, unknown) neurovascularly intact, no weakness, normal tone, (unknown) (no (unknown) (unknown) Medical History (units (unknown) date) (Reviewed 06/15/22 @ unknown) 02:58 by Robert [place], DO) (unknown) (no (unknown) (unknown) Medical decision (units (unknown) date) making narrative: unknown) (unknown) (no (unknown) (unknown) Medication (units (unk nown) date) Instructions unknown) Recorded Confirmed (unknown) (no (unknown) (unknown) Medication (units (unk nown) date) Instructions unknown) Recorded (unknown) (no (unknown) (unknown) 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, unknown) non-alcoholic (unknown) (no (unknown) (unknown) Mode of arrival: (units (unknown) date) EMS unknown) (unknown) (no (unknown) (unknown) Narrative (units (unkn own) date) unknown) (unknown) (no (unknown) (unknown) Narrative: (units (unk nown) date) unknown) (unknown) (no (unknown) (unknown) Neuro: normal (units ( unknown) date) speech and unknown) cognition, A+O x3, ambulatory, clear speech (unknown) (no (unknown) (unknown) New (units (unkno wn) date) unknown) (unknown) (no (unknown) (unknown) No Action (units (unkn own) date) unknown) (unknown) (no (unknown) (unknown) No fracture (units (un known) date) identified. unknown) (unknown) (no (unknown) (unknown) Obesity, morbid, (units (unknown) date) BMI 50 or higher unknown) (unknown) (no (unknown) (unknown) Ordered: (units (unkno wn) date) unknown) (unknown) (no (unknown) (unknown) Orders (units (unkno wn) date) unknown) (unknown) (no (unknown) (unknown) Osteoarthritis (units (unknown) date) unknown) (unknown) (no (unknown) (unknown) Oxycodone/Acetamino (unit s (unknown) date) phen unknown) (Oxycodone/Acetamino phen 5/325 Tablet) 2 tab PO NOW ONE (unknown) (no (unknown) (unknown) Oxygen Delivery (units (unknown) date) Method 06/14/22 unknown) 13:06 (unknown) (no (unknown) (unknown) Oxygen Delivery (units (unknown) date) Method Room Air unknown) (unknown) (no (unknown) (unknown) PROCEDURE:? XR KNEE (unit s (unknown) date) RT 1TO2V unknown) (unknown) (no (unknown) (unknown) Pain (units (unkno wn) date) unknown) (unknown) (no (unknown) (unknown) Patient (units (unkno wn) date) Disposition: Home unknown) (unknown) (no (unknown) (unknown) Patient History (units (unknown) date) unknown) (unknown) (no (unknown) (unknown) Patient: (units (unkno wn) date) Rosa Ramon MR#: unknown) M00 (unknown) (no (unknown) (unknown) [place] Allergy (unit s (unknown) date) Severe Difficulty unknown) Verified 06/12/22 21:48 (unknown) (no (unknown) (unknown) Please contact your (unit s (unknown) date) pain management unknown) provider and let them know you were seen in (unknown) (no (unknown) (unknown) Prescriptions: (units (unknown) date) unknown) (unknown) (no (unknown) (unknown) Previous Rx's (units ( unknown) date) unknown) (unknown) (no (unknown) (unknown) Psoriatic arthritis (unit s (unknown) date) unknown) (unknown) (no (unknown) (unknown) Psych: mental (units ( unknown) date) status is grossly unknown) normal, congruent mood, normal affect, pleasant (unknown) (no (unknown) (unknown) Pulse Oximetry 95 (units (unknown) date) 06/14/22 13:06 unknown) (unknown) (no (unknown) (unknown) Pulse Oximetry 95 (units (unknown) date) unknown) (unknown) (no (unknown) (unknown) Pulse Rate 83 (units ( unknown) date) 06/14/22 13:06 unknown) (unknown) (no (unknown) (unknown) Pulse Rate 83 (units ( unknown) date) unknown) (unknown) (no (unknown) (unknown) Qualifiers: (units (un known) date) unknown) (unknown) (no (unknown) (unknown) Radiologist's (units ( unknown) date) Impression: unknown) (unknown) (no (unknown) (unknown) Referrals: (units (unk nown) date) unknown) (unknown) (no (unknown) (unknown) Related Data (units (u nknown) date) unknown) (unknown) (no (unknown) (unknown) Respiratory Rate 19 (unit s (unknown) date) 06/14/22 13:06 unknown) (unknown) (no (unknown) (unknown) Respiratory Rate 19 (unit s (unknown) date) unknown) (unknown) (no (unknown) (unknown) Respiratory: normal (unit s (unknown) date) effort, able to unknown) speak in complete sentences, without (unknown) (no (unknown) (unknown) Review of Systems (units (unknown) date) unknown) (unknown) (no (unknown) (unknown) Review of systems (units (unknown) date) is negative for unknown) acute abnormalities unless otherwise noted in (unknown) (no (unknown) (unknown) Reviewed vitals (units (unknown) date) signs and nursing unknown) notes. (unknown) (no (unknown) (unknown) Rexulti 2 mg Tablet (unit s (unknown) date) unknown) (unknown) (no (unknown) (unknown) Rx Instructions: (units (unknown) date) unknown) (unknown) (no (unknown) (unknown) See Rx Instructions (unit s (unknown) date) .ROUTE .COMPLEX Qty: unknown) 21 0RF (unknown) (no (unknown) (unknown) Severe degenerative (unit s (unknown) date) change.? unknown) (unknown) (no (unknown) (unknown) Signed By: (units (unk nown) date) unknown) (unknown) (no (unknown) (unknown) [facility] (units (unkn own) date) Orthopedics unknown) [Provider Group] (unknown) (no (unknown) (unknown) Skin: brisk (units (un known) date) capillary refill, unknown) without pallor or erythema (unknown) (no (unknown) (unknown) Smoking Status: (units (unknown) date) Current every day unknown) smoker (unknown) (no (unknown) (unknown) Social History (units (unknown) date) (Reviewed 06/15/22 @ unknown) 02:58 by Robert Zurita DO) (unknown) (no (unknown) (unknown) Soft tissues:? Small (unit s (unknown) date) joint effusion.? No unknown) suspicious soft tissue calcifications.? (unknown) (no (unknown) (unknown) Source: patient and (unit s (unknown) date) EMS unknown) (unknown) (no (unknown) (unknown) Spiriva with (units (u nknown) date) HandiHaler 18 mcg unknown) Capsule, W/Inhalation Device (unknown) (no (unknown) (unknown) Stated Complaint: R (unit s (unknown) date) Knee pain, fall unknown) (unknown) (no (unknown) (unknown) Stop: 06/14/22 (units (unknown) date) 14:05 unknown) (unknown) (no (unknown) (unknown) Stop: 06/14/22 (units (unknown) date) 14:10 unknown) (unknown) (no (unknown) (unknown) Stop: 06/14/22 (units (unknown) date) 15:03 unknown) (unknown) (no (unknown) (unknown) Substance Use Type: (unit s (unknown) date) does not use unknown) (unknown) (no (unknown) (unknown) Sulfa (Sulfonamide (units (unknown) date) AdvReac Intermediate unknown) Joint Pain Verified 06/12/22 21:48 (unknown) (no (unknown) (unknown) [place] view (units (u nknown) date) obtained after 1st unknown) x-ray without patellar fracture or osseous (unknown) (no (unknown) (unknown) Surgical History (units (unknown) date) (Reviewed 06/15/22 @ unknown) 02:58 by Robert Zurita DO) (unknown) (no (unknown) (unknown) TABLETS . (units (unkn own) date) unknown) (unknown) (no (unknown) (unknown) TAKE 1 TABLET BY (units (unknown) date) MOUTH DAILY unknown) (unknown) (no (unknown) (unknown) TAKE 1 TABLET BY (units (unknown) date) MOUTH EVERY 4 TO 6 unknown) HOURS NEEDED . MAXIMUM DAILY DOSE IS 5 (unknown) (no (unknown) (unknown) TAKE 1 TABLET BY (units (unknown) date) MOUTH EVERY DAY unknown) (unknown) (no (unknown) (unknown) TECHNIQUE:? 2 views (unit s (unknown) date) of the knee were unknown) acquired.? (unknown) (no (unknown) (unknown) Temperature 96.8 F (units (unknown) date) L 06/14/22 13:06 unknown) (unknown) (no (unknown) (unknown) Temperature 96.8 F (units (unknown) date) L unknown) (unknown) (no (unknown) (unknown) There is (units (unkno wn) date) unknown) (unknown) (no (unknown) (unknown) This is a (units (unkn own) date) 52-year-old female unknown) with history of chronic pain, fibromyalgia, MRSA (unknown) (no (unknown) (unknown) This is a (units (unkn own) date) 52-year-old female unknown) with history of diabetes, fibromyalgia, lupus,, (unknown) (no (unknown) (unknown) Time Seen by (units (u nknown) date) Provider: 06/14/22 unknown) 13:40 (unknown) (no (unknown) (unknown) [place] (units (unknown) date) osteoarthritis of unknown) right knee (unknown) (no (unknown) (unknown) Visit Report Forms: (unit s (unknown) date) Patient Portal/API unknown) (unknown) (no (unknown) (unknown) Vital Signs - 8 hr (units (unknown) date) unknown) (unknown) (no (unknown) (unknown) Vital Signs (units (un known) date) unknown) (unknown) (no (unknown) (unknown) Vital signs: (units (u nknown) date) unknown) (unknown) (no (unknown) (unknown) [ ] New medication (units (unknown) date) written as a paper unknown) prescription (unknown) (no (unknown) (unknown) [ ] No new (units (unk nown) date) medications given unknown) (unknown) (no (unknown) (unknown) [x ] New medication (unit s (unknown) date) prescriptions sent unknown) to your pharmacy: [ Michelle] (unknown) (no (unknown) (unknown) a dose pack (Medrol (unit s (unknown) date) (Galdino)) #21 ea unknown) (unknown) (no (unknown) (unknown) able to dorsiflex (units (unknown) date) and plantar extend, unknown) no ankle pain or hip pain with range of (unknown) (no (unknown) (unknown) abnormality visible (unit s (unknown) date) unknown) (unknown) (no (unknown) (unknown) advanced imaging. (units (unknown) date) unknown) (unknown) (no (unknown) (unknown) aerosol inhaler (units (unknown) date) Shortness Of Breath unknown) (unknown) (no (unknown) (unknown) albuterol sulfate 90 (unit s (unknown) date) mcg/actuation 2 puff unknown) inhalation Q4-6H PRN 03/05/21 04/26/22 (unknown) (no (unknown) (unknown) albuterol sulfate (units (unknown) date) 90 mcg/actuation Hfa unknown) Aerosol Inhaler (unknown) (no (unknown) (unknown) alcohol intake (units (unknown) date) frequency: unknown) holidays/special occasions only (unknown) (no (unknown) (unknown) alcohol intake: (units (unknown) date) current unknown) (unknown) (no (unknown) (unknown) alprazolam 3 mg (units (unknown) date) tablet,extended 1 mg unknown) PO DAILY 03/05/21 04/26/22 (unknown) (no (unknown) (unknown) alprazolam [Xanax (units (unknown) date) XR] 3 mg Tablet unknown) Extended Release 24 Hr (unknown) (no (unknown) (unknown) and cooperative (units (unknown) date) unknown) (unknown) (no (unknown) (unknown) and given a walker (units (unknown) date) to use for unknown) ambulation. Her x-ray does not show any acute (unknown) (no (unknown) (unknown) and joint space (units (unknown) date) narrowing. Please unknown) follow-up [facility] for evaluation (unknown) (no (unknown) (unknown) and now complaining (unit s (unknown) date) patellar pain and unknown) surrounding pain. She states that pain is (unknown) (no (unknown) (unknown) any numbness or (units (unknown) date) tingling, any unknown) sensation changes, any open wounds, denies any (unknown) (no (unknown) (unknown) appointment at (units ( unknown) date) [facility] unknown) for follow-up for her right knee injury and to (unknown) (no (unknown) (unknown) appointment. Let (units (unknown) date) them know you were unknown) seen in the Emergency Department and that we (unknown) (no (unknown) (unknown) are stable on (units ( unknown) date) repeat examination unknown) is unremarkable. Patient has been informed of (unknown) (no (unknown) (unknown) asked that you be (units (unknown) date) seen for follow-up. unknown) We will electronically transmit a record (unknown) (no (unknown) (unknown) brexpiprazole 2 mg (units (unknown) date) tablet (Rexulti) 1 unknown) mg PO DAILY 03/05/21 04/26/22 (unknown) (no (unknown) (unknown) [place] Allergy (units (unknown) date) Severe Difficulty unknown) Verified 06/12/22 21:48 (unknown) (no (unknown) (unknown) concerning (units (unk nown) date) symptoms, such as unknown) [fever greater than 101F, chills, worsening pain, (unknown) (no (unknown) (unknown) department via EMS (units (unknown) date) for right knee unknown) injury. Patient states that she was on the (unknown) (no (unknown) (unknown) dipyridamole (units (u nknown) date) AdvReac Intermediate unknown) Joint Pain Verified 06/12/22 21:48 (unknown) (no (unknown) (unknown) due to pain. She (units (unknown) date) states that she has unknown) a history of degenerative joint disease in (unknown) (no (unknown) (unknown) eggshell membrane (units (unknown) date) Allergy Intermediate unknown) Abdominal Uncoded 03/08/21 07:16 (unknown) (no (unknown) (unknown) establish care with [place]unit [place] ([place] [facility] primary care providers. (unknown) (no (unknown) (unknown) eucalyptus Allergy (units (unknown) date) Severe Difficulty unknown) Verified 06/12/22 21:48 (unknown) (no (unknown) (unknown) fall, initial (units ( unknown) date) encounter unknown) (unknown) (no (unknown) (unknown) feel better soon, (units (unknown) date) please use the knee unknown) immobilizer while your upright and (unknown) (no (unknown) (unknown) fluconazole 200 mg (units (unknown) date) tablet 200 mg PO unknown) DAILY #7 tabs 04/27/22 (unknown) (no (unknown) (unknown) fluconazole 200 mg (units (unknown) date) tablet unknown) (unknown) (no (unknown) (unknown) follow-up with her (units (unknown) date) primary care unknown) provider as well. Patient states understanding, (unknown) (no (unknown) (unknown) fracture, it does (units (unknown) date) show severe unknown) degenerative changes, a small knee effusion (unknown) (no (unknown) (unknown) furosemide 40 mg (units (unknown) date) tablet (Lasix) 120 unknown) mg PO DAILY 03/05/21 04/26/22 (unknown) (no (unknown) (unknown) furosemide [Lasix] (units (unknown) date) 40 mg Tablet unknown) (unknown) (no (unknown) (unknown) gabapentin 300 mg (units (unknown) date) capsule 300 mg PO unknown) BEDTIME #14 caps 06/12/22 (unknown) (no (unknown) (unknown) gabapentin 300 mg (units (unknown) date) capsule unknown) (unknown) (no (unknown) (unknown) her bilateral knees (unit s (unknown) date) and states that she unknown) needs a right knee replacement. (unknown) (no (unknown) (unknown) history of (units (unk nown) date) diabetes, denies any unknown) range of motion deficit other than limitations (unknown) (no (unknown) (unknown) household members: (units (unknown) date) family unknown) (unknown) (no (unknown) (unknown) injury of right (units (unknown) date) lower leg, initial unknown) encounter (unknown) (no (unknown) (unknown) is on chronic pain (units (unknown) date) contract, she was unknown) prescribed 10 tabs of Percocet and she (unknown) (no (unknown) (unknown) joint called in (units (unknown) date) effusion, and you unknown) have severe tricompartmental osteoarthritis (unknown) (no (unknown) (unknown) joint space (units (un known) date) narrowing.? No unknown) suspicious bony lesions.? (unknown) (no (unknown) (unknown) ketorolac [From (units (unknown) date) Toradol] Allergy unknown) Verified 06/12/22 21:48 (unknown) (no (unknown) (unknown) knee when she fell (units (unknown) date) and hit the tile. unknown) She has patellar pain and surrounding pain (unknown) (no (unknown) (unknown) legs, (units (unkno wn) date) unknown) (unknown) (no (unknown) (unknown) lidocaine 5 % (units ( unknown) date) adhesive unknown) patch,medicated (unknown) (no (unknown) (unknown) lidocaine 5 % (units ( unknown) date) topical patch 1 unknown) patch topical PRN PRN Pain 04/26/22 04/26/22 (unknown) (no (unknown) (unknown) lisinopril 10 mg (units (unknown) date) Tablet unknown) (unknown) (no (unknown) (unknown) lisinopril 10 mg (units (unknown) date) tablet 10 mg PO unknown) DAILY 03/05/21 04/26/22 (unknown) (no (unknown) (unknown) metformin 500 mg (units (unknown) date) Tablet unknown) (unknown) (no (unknown) (unknown) metformin 500 mg (units (unknown) date) tablet 500 mg PO BID unknown) PRN Hyperglycemia 03/05/21 04/26/22 (unknown) (no (unknown) (unknown) methylprednisolone (units (unknown) date) 4 mg tablets in See unknown) Rx Instructions PO .COMPLEX 06/12/22 (unknown) (no (unknown) (unknown) methylprednisolone (units (unknown) date) [Medrol (Galdino)] 4 mg unknown) tablets,dose pack (unknown) (no (unknown) (unknown) mg tablet (units (unkn own) date) (Percocet) unknown) (unknown) (no (unknown) (unknown) mg tablet 4-6) (units (unknown) date) unknown) (unknown) (no (unknown) (unknown) motion, patient (units (unknown) date) able to flex and unknown) extend her right knee without limitation other (unknown) (no (unknown) (unknown) naproxen AdvReac (units (unknown) date) Intermediate Joint unknown) Pain Verified 06/12/22 21:48 (unknown) (no (unknown) (unknown) nystatin 100,000 (units (unknown) date) unit/gram topical 1 unknown) applic topical BID #14 grams 04/27/22 (unknown) (no (unknown) (unknown) nystatin [Nystop] (units (unknown) date) 100,000 unit/gram unknown) Powder (unknown) (no (unknown) (unknown) obesity, (units (unkno wn) date) osteoarthritis and unknown) psoriatic arthritis, 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 (unknown) (no (unknown) (unknown) orally per package (units (unknown) date) directions unknown) (unknown) (no (unknown) (unknown) orthopedics for the (unit s (unknown) date) next step. Please unknown) let your primary care provider know about (unknown) (no (unknown) (unknown) oxycodone-acetamino (unit s (unknown) date) phen 10 mg-325 1 tab unknown) PO Q3H PRN Pain (Scale Score 04/26/22 (unknown) (no (unknown) (unknown) oxycodone-acetamino (unit s (unknown) date) phen 10-325 mg unknown) tablet (unknown) (no (unknown) (unknown) oxycodone-acetamino (unit s (unknown) date) phen 5 mg-325 1 tab unknown) PO Q8H PRN pain #10 tabs 06/14/22 (unknown) (no (unknown) (unknown) oxycodone-acetamino (unit s (unknown) date) phen [Percocet] unknown) 5-325 mg tablet (unknown) (no (unknown) (unknown) pantoprazole 40 mg (units (unknown) date) tablet,delayed 40 mg unknown) PO QAM PRN Acid Reflux 04/26/22 04/26/22 (unknown) (no (unknown) (unknown) pantoprazole 40 mg (units (unknown) date) tablet,delayed unknown) release (DR/EC) (unknown) (no (unknown) (unknown) persistent vomiting (unit s (unknown) date) or other bothersome unknown) symptoms]. (unknown) (no (unknown) (unknown) porch smoking and (units (unknown) date) tripped, falling unknown) forward onto tile floor with her right knee (unknown) (no (unknown) (unknown) powder (Nystop) (units (unknown) date) unknown) (unknown) (no (unknown) (unknown) providers as (units (u nknown) date) instructed. Patient unknown) understands plan and agrees to discharge home. (unknown) (no (unknown) (unknown) pseudoephedrine (units (unknown) date) AdvReac Intermediate unknown) Joint Pain Verified 06/12/22 21:48 (unknown) (no (unknown) (unknown) rabeprazole 5 mg (units (unknown) date) capsule,delayed 40 unknown) mg PO QAM 03/05/21 04/26/22 (unknown) (no (unknown) (unknown) release 24 hr (units ( unknown) date) (Xanax XR) unknown) (unknown) (no (unknown) (unknown) release sprinkle (units (unknown) date) (AcipHex Sprinkle) unknown) (unknown) (no (unknown) (unknown) release (units (unkno wn) date) unknown) (unknown) (no (unknown) (unknown) results. Patient (units (unknown) date) has been given unknown) strict return to ER precautions for any new or (unknown) (no (unknown) (unknown) right knee with (units (unknown) date) ecchymosis anterior unknown) to the patella, tenderness with palpation (unknown) (no (unknown) (unknown) sertraline 25 mg (units (unknown) date) tablet (Zoloft) 100 unknown) mg PO BID 03/05/21 04/26/22 (unknown) (no (unknown) (unknown) sertraline [Zoloft] (unit s (unknown) date) 25 mg Tablet unknown) (unknown) (no (unknown) (unknown) she had a negative (units (unknown) date) Kelsie[employer] and no unknown) increased laxity with varus and valgus (unknown) (no (unknown) (unknown) she knows she needs (unit s (unknown) date) a right knee unknown) replacement. I encouraged her to schedule an (unknown) (no (unknown) (unknown) surrounding the (units (unknown) date) patella and with any unknown) patellar manipulation, right leg patient (unknown) (no (unknown) (unknown) tenderness or (units ( unknown) date) exquisite tenderness unknown) with exam. (unknown) (no (unknown) (unknown) testing. Patient is (unit s (unknown) date) appropriate and unknown) amenable to discharge home. Vital signs (unknown) (no (unknown) (unknown) than due to pain. (units (unknown) date) There is no open unknown) wound, there is a suprapatellar effusion (unknown) (no (unknown) (unknown) the emergency (units ( unknown) date) department and unknown) received other opioid medications today. Hope you (unknown) (no (unknown) (unknown) tiotropium bromide (units (unknown) date) 18 mcg capsule 1 cap unknown) inhalation DAILY 03/05/21 04/26/22 (unknown) (no (unknown) (unknown) to palpation, she (units (unknown) date) is able to bear unknown) weight and was placed in a knee immobilizer (unknown) (no (unknown) (unknown) tobacco type: (units ( unknown) date) cigarettes unknown) (unknown) (no (unknown) (unknown) tricompartmental (units (unknown) date) osteophytosis and unknown) severe joint space narrowing. Patient states (unknown) (no (unknown) (unknown) understands to (units (unknown) date) discuss this with unknown) her chronic pain specialist, encouraged her to (unknown) (no (unknown) (unknown) use her knee (units (u nknown) date) immobilizer until unknown) she follows up. She has multiple allergies and (unknown) (no (unknown) (unknown) valacyclovir 1 gram (unit s (unknown) date) tablet 1 mg PO QAM unknown) 04/26/22 04/26/22 (unknown) (no (unknown) (unknown) valacyclovir 1 gram (unit s (unknown) date) tablet unknown) (unknown) (no (unknown) (unknown) walking, use a (units (unknown) date) walker or a cane to unknown) help off weight your knee and follow-up with (unknown) (no (unknown) (unknown) wheezing, stridor, (units (unknown) date) or abnormal breath unknown) sounds. No retractions or tachypnea. (unknown) (no (unknown) (unknown) which is palpable, (units (unknown) date) tenderness over MCL unknown) and over LCL. (unknown) (no (unknown) (unknown) who tripped and (units (unknown) date) fell on her porch unknown) this morning after smoking injuring her right (unknown) (no (unknown) (unknown) with HandiHaler) (units (unknown) date) unknown) (unknown) (no (unknown) (unknown) with inhalation (units (unknown) date) device (Spiriva unknown) (unknown) (no (unknown) (unknown) worse with (units (unk nown) date) attempting to bear unknown) weight or with movement and palpation. She denies (unknown) (no (unknown) (unknown) worsening symptoms. (unit s (unknown) date) Patient understands unknown) to follow up closely with outpatient (unknown) (no (unknown) (unknown) your injury in case (unit s (unknown) date) you need any unknown) outpatient services like physical therapy or Result panel 12 (unknown) (no (unknown) (unknown) (no value) (units (unk nown) date) unknown) (unknown) (no (unknown) (unknown) <Electronically (units (unknown) date) signed by Daija Gallardo unknown) LALIT Rosales> (unknown) (no (unknown) (unknown) <Electronically (units (unknown) date) signed by Andree Mesa unknown) Arminda Donald> (unknown) (no (unknown) (unknown) <Daija Rosales, (units (unknown) date) LALIT - Last Filed: unknown) 06/14/22 15:59> (unknown) (no (unknown) (unknown) <Andree Donald DO (units (unknown) date) - Last Filed: unknown) 06/18/22 08:50> (unknown) (no (unknown) (unknown) (Scale Score 4-6) (units (unknown) date) unknown) (unknown) (no (unknown) (unknown) *If you do not have (unit s (unknown) date) a primary care unknown) provider please contact [phone] to (unknown) (no (unknown) (unknown) *Please continue to (unit s (unknown) date) take your regular unknown) medications as directed. (unknown) (no (unknown) (unknown) *Please follow up (units (unknown) date) with your primary unknown) care provider in 2-3 days, call for an (unknown) (no (unknown) (unknown) *Return to (units (unk nown) date) Emergency Department unknown) if you should have any new, worsening, or (unknown) (no (unknown) (unknown) *What to do: (units (u nknown) date) unknown) (unknown) (no (unknown) (unknown) *You have been (units (unknown) date) diagnosed with a unknown) right knee injury which shows fluid within the (unknown) (no (unknown) (unknown) [id number] (units (unkno wn) date) unknown) (unknown) (no (unknown) (unknown) 04/26/22 (units (unkno wn) date) unknown) (unknown) (no (unknown) (unknown) 06/14/22 1559 (units ( unknown) date) unknown) (unknown) (no (unknown) (unknown) 06/14/22 (units (unkno wn) date) unknown) (unknown) (no (unknown) (unknown) 06/18/22 0851 (units ( unknown) date) unknown) (unknown) (no (unknown) (unknown) 1 applic topical (units (unknown) date) BID Qty: 14 0RF unknown) (unknown) (no (unknown) (unknown) 1 cap INHALATION (units (unknown) date) DAILY unknown) (unknown) (no (unknown) (unknown) 1 mg PO DAILY (units ( unknown) date) unknown) (unknown) (no (unknown) (unknown) 1 mg PO QAM (units (un known) date) unknown) (unknown) (no (unknown) (unknown) 1 patch topical PRN (unit s (unknown) date) PRN (Reason: Pain unknown) (Scale Score 4-6)) (unknown) (no (unknown) (unknown) 1 tab PO Q3H PRN (units (unknown) date) (Reason: Pain (Scale unknown) Score 4-6)) (unknown) (no (unknown) (unknown) 1 tab PO Q8H PRN (units (unknown) date) (Reason: pain) Qty: unknown) 10 0RF (unknown) (no (unknown) (unknown) 10 mg PO DAILY (units (unknown) date) unknown) (unknown) (no (unknown) (unknown) 100 mg PO BID (units ( unknown) date) unknown) (unknown) (no (unknown) (unknown) 120 mg PO DAILY (units (unknown) date) unknown) (unknown) (no (unknown) (unknown) 13:06 (units (unkno wn) date) unknown) (unknown) (no (unknown) (unknown) 2 puff INHALATION (units (unknown) date) Q4-6H PRN (Reason: unknown) Shortness Of Breath) (unknown) (no (unknown) (unknown) 200 mg PO DAILY (units (unknown) date) Qty: 7 0RF unknown) (unknown) (no (unknown) (unknown) 300 mg PO BEDTIME (units (unknown) date) Qty: 14 0RF unknown) (unknown) (no (unknown) (unknown) 40 mg PO QAM PRN (units (unknown) date) (Reason: Acid unknown) Reflux) (unknown) (no (unknown) (unknown) 40 mg PO QAM (units (u nknown) date) unknown) (unknown) (no (unknown) (unknown) 500 mg PO BID PRN (units (unknown) date) (Reason: unknown) Hyperglycemia) (unknown) (no (unknown) (unknown) ? (units (unkno wn) date) unknown) (unknown) (no (unknown) (unknown) AcipHex Sprinkle 5 (units (unknown) date) mg Capsule, Delayed unknown) Rel Sprinkle (unknown) (no (unknown) (unknown) Activity (units (unkno wn) date) Restrictions/Additio unknown) nal Instructions: (unknown) (no (unknown) (unknown) Age/Sex: 52 / F (units (unknown) date) unknown) (unknown) (no (unknown) (unknown) All questions and (units (unknown) date) concerns answered at unknown) this time. (unknown) (no (unknown) (unknown) Allergies (units (unkn own) date) unknown) (unknown) (no (unknown) (unknown) Allergy/AdvReac (units (unknown) date) Type Severity unknown) Reaction Status Date / Time (unknown) (no (unknown) (unknown) Antibiotics) (units (u nknown) date) unknown) (unknown) (no (unknown) (unknown) Approved by: Jovanny (units (unknown) date) Artemio Hannah on unknown) 06/14/2022 at 14:01 ? (unknown) (no (unknown) (unknown) Asthma (units (unkno wn) date) unknown) (unknown) (no (unknown) (unknown) Blood Pressure (units (unknown) date) 128/75 06/14/22 unknown) 13:06 (unknown) (no (unknown) (unknown) Blood Pressure (units (unknown) date) 128/75 unknown) (unknown) (no (unknown) (unknown) Bones:? No (units (unk nown) date) fractures or unknown) dislocations.? Severe tricompartmental osteophytosis.? (unknown) (no (unknown) (unknown) Breathing (units (unkn own) date) unknown) (unknown) (no (unknown) (unknown) COMPARISON:? [place] (unit s (unknown) date) [facility], CR, XR unknown) KNEE RT 3V, 03/03/2022, 17:40. (unknown) (no (unknown) (unknown) Cardiovascular: (units (unknown) date) regular rate and unknown) rhythm, no peripheral edema, warm extremities (unknown) (no (unknown) (unknown) Chief Complaint: (units (unknown) date) Extremity Injury, unknown) Lower (unknown) (no (unknown) (unknown) Chronic anemia (units (unknown) date) unknown) (unknown) (no (unknown) (unknown) Clinical (units (unkno wn) date) Impression: unknown) (unknown) (no (unknown) (unknown) Cosign (units (unkno wn) date) unknown) (unknown) (no (unknown) (unknown) Course (units (unkno wn) date) unknown) (unknown) (no (unknown) (unknown) : 1970 (units (unknown) date) Acct:[id number] unknown) (unknown) (no (unknown) (unknown) Date of Service: (units (unknown) date) 06/14/22 unknown) (unknown) (no (unknown) (unknown) Departure (units (unkn own) date) unknown) (unknown) (no (unknown) (unknown) Diabetes mellitus, (units (unknown) date) type 2 unknown) (unknown) (no (unknown) (unknown) Dictated by: Jovanny (units (unknown) date) Artemio Hannah on unknown) 06/14/2022 at 13:59 ? ? (unknown) (no (unknown) (unknown) Discharge Plan (units (unknown) date) unknown) (unknown) (no (unknown) (unknown) Discontinued (units (u nknown) date) Medications unknown) (unknown) (no (unknown) (unknown) Nikolai Gray MD (unit s (unknown) date) [Primary Care unknown) Provider] (unknown) (no (unknown) (unknown) Documented By: SHAREEK (units (unknown) date) unknown) (unknown) (no (unknown) (unknown) Documented By: BS (units (unknown) date) unknown) (unknown) (no (unknown) (unknown) ED Attending (units (u nknown) date) Cosignature unknown) Attestation: (unknown) (no (unknown) (unknown) ER Physician: (units ( unknown) date) Daija Rosales unknown) (unknown) (no (unknown) (unknown) Effusion of knee (units (unknown) date) joint unknown) (unknown) (no (unknown) (unknown) Emergency Report (units (unknown) date) unknown) (unknown) (no (unknown) (unknown) Encounter type: (units (unknown) date) initial encounter unknown) Qualified Code(s): S89.91XA - Unspecified (unknown) (no (unknown) (unknown) Encounter type: (units (unknown) date) initial encounter unknown) Qualified Code(s): W19.XXXA - Unspecified (unknown) (no (unknown) (unknown) Exam Narrative: (units (unknown) date) unknown) (unknown) (no (unknown) (unknown) Exam (units (unkno wn) date) unknown) (unknown) (no (unknown) (unknown) Extremity x-ray #1: (unit s (unknown) date) unknown) (unknown) (no (unknown) (unknown) FINDINGS:? (units (unk nown) date) unknown) (unknown) (no (unknown) (unknown) Fall (units (unkno wn) date) unknown) (unknown) (no (unknown) (unknown) Fibromyalgia (units (u nknown) date) unknown) (unknown) (no (unknown) (unknown) GI: abdomen soft, (units (unknown) date) nontender to unknown) palpation, nondistended, without masses, rebound (unknown) (no (unknown) (unknown) General (units (unkno wn) date) unknown) (unknown) (no (unknown) (unknown) General: (units (unkno wn) date) cooperative, unknown) uncomfortable, in acute distress, dirty feet and lower (unknown) (no (unknown) (unknown) HEENT: symmetrical (units (unknown) date) facial expressions, unknown) moist mucous membranes (unknown) (no (unknown) (unknown) HPI - Extremity (units (unknown) date) Injury (Lower) unknown) (unknown) (no (unknown) (unknown) HPI Narrative: (units (unknown) date) unknown) (unknown) (no (unknown) (unknown) HPI (units (unkno wn) date) unknown) (unknown) (no (unknown) (unknown) History of Present (units (unknown) date) Illness unknown) (unknown) (no (unknown) (unknown) History of (units (unk nown) date) arthroscopy of right unknown) shoulder (03/08/21) (unknown) (no (unknown) (unknown) History of carpal (units (unknown) date) tunnel release unknown) (unknown) (no (unknown) (unknown) Home Medications (units (unknown) date) unknown) (unknown) (no (unknown) (unknown) Hx of abdominal (units (unknown) date) surgery unknown) (unknown) (no (unknown) (unknown) Hx of arthroscopic (units (unknown) date) knee surgery unknown) (unknown) (no (unknown) (unknown) Hx of (units (unkno wn) date) cholecystectomy unknown) (unknown) (no (unknown) (unknown) Hx of foot surgery (units (unknown) date) unknown) (unknown) (no (unknown) (unknown) Hx of lumbosacral (units (unknown) date) spine surgery unknown) (unknown) (no (unknown) (unknown) Hydromorphone HCl (units (unknown) date) (Hydromorphone 0.5 unknown) Mg Inj) 0.5 mg IV NOW ONE (unknown) (no (unknown) (unknown) I was immediately (units (unknown) date) available in the unknown) department for consultation. Documentation (unknown) (no (unknown) (unknown) IMPRESSION:? (units (u nknown) date) unknown) (unknown) (no (unknown) (unknown) INDICATIONS:? fall (units (unknown) date) unknown) (unknown) (no (unknown) (unknown) If concern for (units (unknown) date) occult fracture unknown) consider CT for further evaluation (unknown) (no (unknown) (unknown) Imaging Data (units (u nknown) date) unknown) (unknown) (no (unknown) (unknown) Immobilizer (units (un known) date) unknown) (unknown) (no (unknown) (unknown) Initial Vital Signs (unit s (unknown) date) unknown) (unknown) (no (unknown) (unknown) Initial Vital (units ( unknown) date) Signs: unknown) (unknown) (no (unknown) (unknown) Injury of right (units (unknown) date) patella unknown) (unknown) (no (unknown) (unknown) Instructions: (units ( unknown) date) Osteoarthritis, DI unknown) for Knee Effusion, How to Use a Knee (unknown) (no (unknown) (unknown) [facility] (units (unknown) date) [address] [place] [address] unknown) [place] [address] (unknown) (no (unknown) (unknown) Label Comments: (units (unknown) date) unknown) (unknown) (no (unknown) (unknown) Last Admin: (units (un known) date) 06/14/22 14:20 Dose: unknown) 0.5 mg (unknown) (no (unknown) (unknown) Last Admin: (units (un known) date) 06/14/22 14:42 Dose: unknown) 2 tab (unknown) (no (unknown) (unknown) Last Admin: (units (un known) date) 06/14/22 15:25 Dose: unknown) 0.5 mg (unknown) (no (unknown) (unknown) Laterality: right (units (unknown) date) Qualified Code(s): unknown) M25.461 - Effusion, right knee (unknown) (no (unknown) (unknown) Lupus (units (unkno wn) date) unknown) (unknown) (no (unknown) (unknown) MDM - Extremity (units (unknown) date) Injury (Lower) unknown) (unknown) (no (unknown) (unknown) MDM Narrative (units ( unknown) date) unknown) (unknown) (no (unknown) (unknown) MRSA, anxiety, (units (unknown) date) depression, and unknown) chronic pain who presents to the emergency (unknown) (no (unknown) (unknown) MSK: moves all (units (unknown) date) extremities, unknown) neurovascularly intact, no weakness, normal tone, (unknown) (no (unknown) (unknown) Medical History (units (unknown) date) (Reviewed 06/15/22 @ unknown) 02:58 by Robert Zurita DO) (unknown) (no (unknown) (unknown) Medical decision (units (unknown) date) making narrative: unknown) (unknown) (no (unknown) (unknown) Medication (units (unk nown) date) Instructions unknown) Recorded Confirmed (unknown) (no (unknown) (unknown) Medication (units (unk nown) date) Instructions unknown) Recorded (unknown) (no (unknown) (unknown) 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, unknown) non-alcoholic (unknown) (no (unknown) (unknown) Mode of arrival: (units (unknown) date) EMS unknown) (unknown) (no (unknown) (unknown) Narrative (units (unkn own) date) unknown) (unknown) (no (unknown) (unknown) Narrative: (units (unk nown) date) unknown) (unknown) (no (unknown) (unknown) Neuro: normal (units ( unknown) date) speech and unknown) cognition, A+O x3, ambulatory, clear speech (unknown) (no (unknown) (unknown) New (units (unkno wn) date) unknown) (unknown) (no (unknown) (unknown) No Action (units (unkn own) date) unknown) (unknown) (no (unknown) (unknown) No fracture (units (un known) date) identified. unknown) (unknown) (no (unknown) (unknown) Obesity, morbid, (units (unknown) date) BMI 50 or higher unknown) (unknown) (no (unknown) (unknown) Ordered: (units (unkno wn) date) unknown) (unknown) (no (unknown) (unknown) Orders (units (unkno wn) date) unknown) (unknown) (no (unknown) (unknown) Osteoarthritis (units (unknown) date) unknown) (unknown) (no (unknown) (unknown) Oxycodone/Acetamino (unit s (unknown) date) phen unknown) (Oxycodone/Acetamino phen 5/325 Tablet) 2 tab PO NOW ONE (unknown) (no (unknown) (unknown) Oxygen Delivery (units (unknown) date) Method 06/14/22 unknown) 13:06 (unknown) (no (unknown) (unknown) Oxygen Delivery (units (unknown) date) Method Room Air unknown) (unknown) (no (unknown) (unknown) PROCEDURE:? XR KNEE (unit s (unknown) date) RT 1TO2V unknown) (unknown) (no (unknown) (unknown) Pain (units (unkno wn) date) unknown) (unknown) (no (unknown) (unknown) Patient (units (unkno wn) date) Disposition: Home unknown) (unknown) (no (unknown) (unknown) Patient History (units (unknown) date) unknown) (unknown) (no (unknown) (unknown) Patient: (units (unkno wn) date) Rosa Ramon MR#: unknown) M00 (unknown) (no (unknown) (unknown) [place] Allergy (unit s (unknown) date) Severe Difficulty unknown) Verified 06/12/22 21:48 (unknown) (no (unknown) (unknown) Please contact your (unit s (unknown) date) pain management unknown) provider and let them know you were seen in (unknown) (no (unknown) (unknown) Prescriptions: (units (unknown) date) unknown) (unknown) (no (unknown) (unknown) Previous Rx's (units ( unknown) date) unknown) (unknown) (no (unknown) (unknown) Psoriatic arthritis (unit s (unknown) date) unknown) (unknown) (no (unknown) (unknown) Psych: mental (units ( unknown) date) status is grossly unknown) normal, congruent mood, normal affect, pleasant (unknown) (no (unknown) (unknown) Pulse Oximetry 95 (units (unknown) date) 06/14/22 13:06 unknown) (unknown) (no (unknown) (unknown) Pulse Oximetry 95 (units (unknown) date) unknown) (unknown) (no (unknown) (unknown) Pulse Rate 83 (units ( unknown) date) 06/14/22 13:06 unknown) (unknown) (no (unknown) (unknown) Pulse Rate 83 (units ( unknown) date) unknown) (unknown) (no (unknown) (unknown) Qualifiers: (units (un known) date) unknown) (unknown) (no (unknown) (unknown) Radiologist's (units ( unknown) date) Impression: unknown) (unknown) (no (unknown) (unknown) Referrals: (units (unk nown) date) unknown) (unknown) (no (unknown) (unknown) Related Data (units (u nknown) date) unknown) (unknown) (no (unknown) (unknown) Respiratory Rate 19 (unit s (unknown) date) 06/14/22 13:06 unknown) (unknown) (no (unknown) (unknown) Respiratory Rate 19 (unit s (unknown) date) unknown) (unknown) (no (unknown) (unknown) Respiratory: normal (unit s (unknown) date) effort, able to unknown) speak in complete sentences, without (unknown) (no (unknown) (unknown) Review of Systems (units (unknown) date) unknown) (unknown) (no (unknown) (unknown) Review of systems (units (unknown) date) is negative for unknown) acute abnormalities unless otherwise noted in (unknown) (no (unknown) (unknown) Reviewed vitals (units (unknown) date) signs and nursing unknown) notes. (unknown) (no (unknown) (unknown) Rexulti 2 mg Tablet (unit s (unknown) date) unknown) (unknown) (no (unknown) (unknown) Rx Instructions: (units (unknown) date) unknown) (unknown) (no (unknown) (unknown) See Rx Instructions (unit s (unknown) date) .ROUTE .COMPLEX Qty: unknown) 21 0RF (unknown) (no (unknown) (unknown) Severe degenerative (unit s (unknown) date) change.? unknown) (unknown) (no (unknown) (unknown) Signed By: (units (unk nown) date) unknown) (unknown) (no (unknown) (unknown) [facility] (units (unkn own) date) Orthopedics unknown) [Provider Group] (unknown) (no (unknown) (unknown) Skin: brisk (units (un known) date) capillary refill, unknown) without pallor or erythema (unknown) (no (unknown) (unknown) Smoking Status: (units (unknown) date) Current every day unknown) smoker (unknown) (no (unknown) (unknown) Social History (units (unknown) date) (Reviewed 06/15/22 @ unknown) 02:58 by Robert Zurita DO) (unknown) (no (unknown) (unknown) Soft tissues:? Small (unit s (unknown) date) joint effusion.? No unknown) suspicious soft tissue calcifications.? (unknown) (no (unknown) (unknown) Source: patient and (unit s (unknown) date) EMS unknown) (unknown) (no (unknown) (unknown) Spiriva with (units (u nknown) date) HandiHaler 18 mcg unknown) Capsule, W/Inhalation Device (unknown) (no (unknown) (unknown) Stated Complaint: R (unit s (unknown) date) Knee pain, fall unknown) (unknown) (no (unknown) (unknown) Stop: 06/14/22 (units (unknown) date) 14:05 unknown) (unknown) (no (unknown) (unknown) Stop: 06/14/22 (units (unknown) date) 14:10 unknown) (unknown) (no (unknown) (unknown) Stop: 06/14/22 (units (unknown) date) 15:03 unknown) (unknown) (no (unknown) (unknown) Substance Use Type: (unit s (unknown) date) does not use unknown) (unknown) (no (unknown) (unknown) Sulfa (Sulfonamide (units (unknown) date) AdvReac Intermediate unknown) Joint Pain Verified 06/12/22 21:48 (unknown) (no (unknown) (unknown) [place] view (units (u nknown) date) obtained after 1st unknown) x-ray without patellar fracture or osseous (unknown) (no (unknown) (unknown) Surgical History (units (unknown) date) (Reviewed 06/15/22 @ unknown) 02:58 by Robert Zurita DO) (unknown) (no (unknown) (unknown) TABLETS . (units (unkn own) date) unknown) (unknown) (no (unknown) (unknown) TAKE 1 TABLET BY (units (unknown) date) MOUTH DAILY unknown) (unknown) (no (unknown) (unknown) TAKE 1 TABLET BY (units (unknown) date) MOUTH EVERY 4 TO 6 unknown) HOURS NEEDED . MAXIMUM DAILY DOSE IS 5 (unknown) (no (unknown) (unknown) TAKE 1 TABLET BY (units (unknown) date) MOUTH EVERY DAY unknown) (unknown) (no (unknown) (unknown) TECHNIQUE:? 2 views (unit s (unknown) date) of the knee were unknown) acquired.? (unknown) (no (unknown) (unknown) Temperature 96.8 F (units (unknown) date) L 06/14/22 13:06 unknown) (unknown) (no (unknown) (unknown) Temperature 96.8 F (units (unknown) date) L unknown) (unknown) (no (unknown) (unknown) There is (units (unkno wn) date) unknown) (unknown) (no (unknown) (unknown) This is a (units (unkn own) date) 52-year-old female unknown) with history of chronic pain, fibromyalgia, MRSA (unknown) (no (unknown) (unknown) This is a (units (unkn own) date) 52-year-old female unknown) with history of diabetes, fibromyalgia, lupus,, (unknown) (no (unknown) (unknown) Time Seen by (units (u nknown) date) Provider: 06/14/22 unknown) 13:40 (unknown) (no (unknown) (unknown) Tricompartment (units (unknown) date) osteoarthritis of unknown) right knee (unknown) (no (unknown) (unknown) Visit Report Forms: (unit s (unknown) date) Patient Portal/API unknown) (unknown) (no (unknown) (unknown) Vital Signs - 8 hr (units (unknown) date) unknown) (unknown) (no (unknown) (unknown) Vital Signs (units (un known) date) unknown) (unknown) (no (unknown) (unknown) Vital signs: (units (u nknown) date) unknown) (unknown) (no (unknown) (unknown) [ ] New medication (units (unknown) date) written as a paper unknown) prescription (unknown) (no (unknown) (unknown) [ ] No new (units (unk nown) date) medications given unknown) (unknown) (no (unknown) (unknown) [x ] New medication (unit s (unknown) date) prescriptions sent unknown) to your pharmacy: [ Benyeens] (unknown) (no (unknown) (unknown) a dose pack (Medrol (unit s (unknown) date) (Galdino)) #21 ea unknown) (unknown) (no (unknown) (unknown) able to dorsiflex (units (unknown) date) and plantar extend, unknown) no ankle pain or hip pain with range of (unknown) (no (unknown) (unknown) abnormality visible (unit s (unknown) date) unknown) (unknown) (no (unknown) (unknown) advanced imaging. (units (unknown) date) unknown) (unknown) (no (unknown) (unknown) aerosol inhaler (units (unknown) date) Shortness Of Breath unknown) (unknown) (no (unknown) (unknown) albuterol sulfate 90 (unit s (unknown) date) mcg/actuation 2 puff unknown) inhalation Q4-6H PRN 03/05/21 04/26/22 (unknown) (no (unknown) (unknown) albuterol sulfate (units (unknown) date) 90 mcg/actuation Hfa unknown) Aerosol Inhaler (unknown) (no (unknown) (unknown) alcohol intake (units (unknown) date) frequency: unknown) holidays/special occasions only (unknown) (no (unknown) (unknown) alcohol intake: (units (unknown) date) current unknown) (unknown) (no (unknown) (unknown) alprazolam 3 mg (units (unknown) date) tablet,extended 1 mg unknown) PO DAILY 03/05/21 04/26/22 (unknown) (no (unknown) (unknown) alprazolam [Xanax (units (unknown) date) XR] 3 mg Tablet unknown) Extended Release 24 Hr (unknown) (no (unknown) (unknown) and cooperative (units (unknown) date) unknown) (unknown) (no (unknown) (unknown) and given a walker (units (unknown) date) to use for unknown) ambulation. Her x-ray does not show any acute (unknown) (no (unknown) (unknown) and joint space (units (unknown) date) narrowing. Please unknown) follow-up [facility] for evaluation (unknown) (no (unknown) (unknown) and now complaining (unit s (unknown) date) patellar pain and unknown) surrounding pain. She states that pain is (unknown) (no (unknown) (unknown) any numbness or (units (unknown) date) tingling, any unknown) sensation changes, any open wounds, denies any (unknown) (no (unknown) (unknown) appointment at (units ( unknown) date) [facility] unknown) for follow-up for her right knee injury and to (unknown) (no (unknown) (unknown) appointment. Let (units (unknown) date) them know you were unknown) seen in the Emergency Department and that we (unknown) (no (unknown) (unknown) are stable on (units ( unknown) date) repeat examination unknown) is unremarkable. Patient has been informed of (unknown) (no (unknown) (unknown) asked that you be (units (unknown) date) seen for follow-up. unknown) We will electronically transmit a record (unknown) (no (unknown) (unknown) brexpiprazole 2 mg (units (unknown) date) tablet (Rexulti) 1 unknown) mg PO DAILY 03/05/21 04/26/22 (unknown) (no (unknown) (unknown) [place] Allergy (units (unknown) date) Severe Difficulty unknown) Verified 06/12/22 21:48 (unknown) (no (unknown) (unknown) concerning (units (unk nown) date) symptoms, such as unknown) [fever greater than 101F, chills, worsening pain, (unknown) (no (unknown) (unknown) department via EMS (units (unknown) date) for right knee unknown) injury. Patient states that she was on the (unknown) (no (unknown) (unknown) dipyridamole (units (u nknown) date) AdvReac Intermediate unknown) Joint Pain Verified 06/12/22 21:48 (unknown) (no (unknown) (unknown) due to pain. She (units (unknown) date) states that she has unknown) a history of degenerative joint disease in (unknown) (no (unknown) (unknown) eggshell membrane (units (unknown) date) Allergy Intermediate unknown) Abdominal Uncoded 03/08/21 07:16 (unknown) (no (unknown) (unknown) establish care with (unit s (unknown) date) one of the [place] unknown) [facility] primary care providers. (unknown) (no (unknown) (unknown) eucalyptus Allergy (units (unknown) date) Severe Difficulty unknown) Verified 06/12/22 21:48 (unknown) (no (unknown) (unknown) fall, initial (units ( unknown) date) encounter unknown) (unknown) (no (unknown) (unknown) feel better soon, (units (unknown) date) please use the knee unknown) immobilizer while your upright and (unknown) (no (unknown) (unknown) fluconazole 200 mg (units (unknown) date) tablet 200 mg PO unknown) DAILY #7 tabs 04/27/22 (unknown) (no (unknown) (unknown) fluconazole 200 mg (units (unknown) date) tablet unknown) (unknown) (no (unknown) (unknown) follow-up with her (units (unknown) date) primary care unknown) provider as well. Patient states understanding, (unknown) (no (unknown) (unknown) fracture, it does (units (unknown) date) show severe unknown) degenerative changes, a small knee effusion (unknown) (no (unknown) (unknown) furosemide 40 mg (units (unknown) date) tablet (Lasix) 120 unknown) mg PO DAILY 03/05/21 04/26/22 (unknown) (no (unknown) (unknown) furosemide [Lasix] (units (unknown) date) 40 mg Tablet unknown) (unknown) (no (unknown) (unknown) gabapentin 300 mg (units (unknown) date) capsule 300 mg PO unknown) BEDTIME #14 caps 06/12/22 (unknown) (no (unknown) (unknown) gabapentin 300 mg (units (unknown) date) capsule unknown) (unknown) (no (unknown) (unknown) has been reviewed. (units (unknown) date) unknown) (unknown) (no (unknown) (unknown) her bilateral knees (unit s (unknown) date) and states that she unknown) needs a right knee replacement. (unknown) (no (unknown) (unknown) history of (units (unk nown) date) diabetes, denies any unknown) range of motion deficit other than limitations (unknown) (no (unknown) (unknown) household members: (units (unknown) date) family unknown) (unknown) (no (unknown) (unknown) injury of right (units (unknown) date) lower leg, initial unknown) encounter (unknown) (no (unknown) (unknown) is on chronic pain (units (unknown) date) contract, she was unknown) prescribed 10 tabs of Percocet and she (unknown) (no (unknown) (unknown) joint called in (units (unknown) date) effusion, and you unknown) have severe tricompartmental osteoarthritis (unknown) (no (unknown) (unknown) joint space (units (un known) date) narrowing.? No unknown) suspicious bony lesions.? (unknown) (no (unknown) (unknown) ketorolac [From (units (unknown) date) Toradol] Allergy unknown) Verified 06/12/22 21:48 (unknown) (no (unknown) (unknown) knee when she fell (units (unknown) date) and hit the tile. unknown) She has patellar pain and surrounding pain (unknown) (no (unknown) (unknown) legs, (units (unkno wn) date) unknown) (unknown) (no (unknown) (unknown) lidocaine 5 % (units ( unknown) date) adhesive unknown) patch,medicated (unknown) (no (unknown) (unknown) lidocaine 5 % (units ( unknown) date) topical patch 1 unknown) patch topical PRN PRN Pain 04/26/22 04/26/22 (unknown) (no (unknown) (unknown) lisinopril 10 mg (units (unknown) date) Tablet unknown) (unknown) (no (unknown) (unknown) lisinopril 10 mg (units (unknown) date) tablet 10 mg PO unknown) DAILY 03/05/21 04/26/22 (unknown) (no (unknown) (unknown) metformin 500 mg (units (unknown) date) Tablet unknown) (unknown) (no (unknown) (unknown) metformin 500 mg (units (unknown) date) tablet 500 mg PO BID unknown) PRN Hyperglycemia 03/05/21 04/26/22 (unknown) (no (unknown) (unknown) methylprednisolone (units (unknown) date) 4 mg tablets in See unknown) Rx Instructions PO .COMPLEX 06/12/22 (unknown) (no (unknown) (unknown) methylprednisolone (units (unknown) date) [Medrol (Galdino)] 4 mg unknown) tablets,dose pack (unknown) (no (unknown) (unknown) mg tablet (units (unkn own) date) (Percocet) unknown) (unknown) (no (unknown) (unknown) mg tablet 4-6) (units (unknown) date) unknown) (unknown) (no (unknown) (unknown) motion, patient (units (unknown) date) able to flex and unknown) extend her right knee without limitation other (unknown) (no (unknown) (unknown) naproxen AdvReac (units (unknown) date) Intermediate Joint unknown) Pain Verified 06/12/22 21:48 (unknown) (no (unknown) (unknown) nystatin 100,000 (units (unknown) date) unit/gram topical 1 unknown) applic topical BID #14 grams 04/27/22 (unknown) (no (unknown) (unknown) nystatin [Nystop] (units (unknown) date) 100,000 unit/gram unknown) Powder (unknown) (no (unknown) (unknown) obesity, (units (unkno wn) date) osteoarthritis and unknown) psoriatic arthritis, 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 (unknown) (no (unknown) (unknown) orally per package (units (unknown) date) directions unknown) (unknown) (no (unknown) (unknown) orthopedics for the (unit s (unknown) date) next step. Please unknown) let your primary care provider know about (unknown) (no (unknown) (unknown) oxycodone-acetamino (unit s (unknown) date) phen 10 mg-325 1 tab unknown) PO Q3H PRN Pain (Scale Score 04/26/22 (unknown) (no (unknown) (unknown) oxycodone-acetamino (unit s (unknown) date) phen 10-325 mg unknown) tablet (unknown) (no (unknown) (unknown) oxycodone-acetamino (unit s (unknown) date) phen 5 mg-325 1 tab unknown) PO Q8H PRN pain #10 tabs 06/14/22 (unknown) (no (unknown) (unknown) oxycodone-acetamino (unit s (unknown) date) phen [Percocet] unknown) 5-325 mg tablet (unknown) (no (unknown) (unknown) pantoprazole 40 mg (units (unknown) date) tablet,delayed 40 mg unknown) PO QAM PRN Acid Reflux 04/26/22 04/26/22 (unknown) (no (unknown) (unknown) pantoprazole 40 mg (units (unknown) date) tablet,delayed unknown) release (DR/EC) (unknown) (no (unknown) (unknown) persistent vomiting (unit s (unknown) date) or other bothersome unknown) symptoms]. (unknown) (no (unknown) (unknown) porch smoking and (units (unknown) date) tripped, falling unknown) forward onto tile floor with her right knee (unknown) (no (unknown) (unknown) powder (Nystop) (units (unknown) date) unknown) (unknown) (no (unknown) (unknown) providers as (units (u nknown) date) instructed. Patient unknown) understands plan and agrees to discharge home. (unknown) (no (unknown) (unknown) pseudoephedrine (units (unknown) date) AdvReac Intermediate unknown) Joint Pain Verified 06/12/22 21:48 (unknown) (no (unknown) (unknown) rabeprazole 5 mg (units (unknown) date) capsule,delayed 40 unknown) mg PO QAM 03/05/21 04/26/22 (unknown) (no (unknown) (unknown) release 24 hr (units ( unknown) date) (Xanax XR) unknown) (unknown) (no (unknown) (unknown) release sprinkle (units (unknown) date) (AcipHex Sprinkle) unknown) (unknown) (no (unknown) (unknown) release (units (unkno wn) date) unknown) (unknown) (no (unknown) (unknown) results. Patient (units (unknown) date) has been given unknown) strict return to ER precautions for any new or (unknown) (no (unknown) (unknown) right knee with (units (unknown) date) ecchymosis anterior unknown) to the patella, tenderness with palpation (unknown) (no (unknown) (unknown) sertraline 25 mg (units (unknown) date) tablet (Zoloft) 100 unknown) mg PO BID 03/05/21 04/26/22 (unknown) (no (unknown) (unknown) sertraline [Zoloft] (unit s (unknown) date) 25 mg Tablet unknown) (unknown) (no (unknown) (unknown) she had a negative (units (unknown) date) Kelsie's and no unknown) increased laxity with varus and valgus (unknown) (no (unknown) (unknown) she knows she needs (unit s (unknown) date) a right knee unknown) replacement. I encouraged her to schedule an (unknown) (no (unknown) (unknown) surrounding the (units (unknown) date) patella and with any unknown) patellar manipulation, right leg patient (unknown) (no (unknown) (unknown) tenderness or (units ( unknown) date) exquisite tenderness unknown) with exam. (unknown) (no (unknown) (unknown) testing. Patient is (unit s (unknown) date) appropriate and unknown) amenable to discharge home. Vital signs (unknown) (no (unknown) (unknown) than due to pain. (units (unknown) date) There is no open unknown) wound, there is a suprapatellar effusion (unknown) (no (unknown) (unknown) the emergency (units ( unknown) date) department and unknown) received other opioid medications today. Hope you (unknown) (no (unknown) (unknown) tiotropium bromide (units (unknown) date) 18 mcg capsule 1 cap unknown) inhalation DAILY 03/05/21 04/26/22 (unknown) (no (unknown) (unknown) to palpation, she (units (unknown) date) is able to bear unknown) weight and was placed in a knee immobilizer (unknown) (no (unknown) (unknown) tobacco type: (units ( unknown) date) cigarettes unknown) (unknown) (no (unknown) (unknown) tricompartmental (units (unknown) date) osteophytosis and unknown) severe joint space narrowing. Patient states (unknown) (no (unknown) (unknown) understands to (units (unknown) date) discuss this with unknown) her chronic pain specialist, encouraged her to (unknown) (no (unknown) (unknown) use her knee (units (u nknown) date) immobilizer until unknown) she follows up. She has multiple allergies and (unknown) (no (unknown) (unknown) valacyclovir 1 gram (unit s (unknown) date) tablet 1 mg PO QAM unknown) 04/26/22 04/26/22 (unknown) (no (unknown) (unknown) valacyclovir 1 gram (unit s (unknown) date) tablet unknown) (unknown) (no (unknown) (unknown) walking, use a (units (unknown) date) walker or a cane to unknown) help off weight your knee and follow-up with (unknown) (no (unknown) (unknown) wheezing, stridor, (units (unknown) date) or abnormal breath unknown) sounds. No retractions or tachypnea. (unknown) (no (unknown) (unknown) which is palpable, (units (unknown) date) tenderness over MCL unknown) and over LCL. (unknown) (no (unknown) (unknown) who tripped and (units (unknown) date) fell on her porch unknown) this morning after smoking injuring her right (unknown) (no (unknown) (unknown) with HandiHaler) (units (unknown) date) unknown) (unknown) (no (unknown) (unknown) with inhalation (units (unknown) date) device (Spiriva unknown) (unknown) (no (unknown) (unknown) worse with (units (unk nown) date) attempting to bear unknown) weight or with movement and palpation. She denies (unknown) (no (unknown) (unknown) worsening symptoms. (unit s (unknown) date) Patient understands unknown) to follow up closely with outpatient (unknown) (no (unknown) (unknown) your injury in case (unit s (unknown) date) you need any unknown) outpatient services like physical therapy or Social History date description facility [id number] Smokes tobacco daily (finding) [facility] [id number]+0000 Smokes tobacco daily (finding) [facility] Vital Signs date measurement value units [id number]+0000 BMI BMI 47.9 kg/m2 18329915568984+0000 height_metric height_metric 165.1 cm [id number]+0000 height_standard height_standard 65 in [id number]+0000 temperature_metric temperature_metric 37 C [id number]+0000 temperature_standard temperature_standard 9 8.6 F [id number]+0000 weight_metric weight_metric 130.635 g_ code [id number]+0000 weight_standard weight_standard 130.635 g_code [id number]+0000 BP_diastolic BP_diastolic 72 mmHg 46394616055472+0000 BP_systolic BP_systolic 138 mmHg 35405397756693+0000 heart_rate heart_rate 78 /min 50975121430021+0000 respiration_rate respiration_rate 17 /min 63493964047750+0000 BMI BMI 46.5 kg/m2 82983389137549+0000 BP_diastolic BP_diastolic 90 mmHg 54905182796157+0000 BP_systolic BP_systolic 120 mmHg 77430202734056+0000 heart_rate heart_rate 83 /min 89249489317811+0000 height_metric height_metric 165.1 cm [id number]+0000 height_standard height_standard 65 in [id number]+0000 respiration_rate respiration_rate 16 /min [id number]+0000 temperature_metric temperature_metric 36 C [id number]+0000 temperature_standard temperature_standard 9 6.8 F [id number]+0000 weight_metric weight_metric 127.006 g_ code 74518042694862+0000 weight_standard weight_standard 127.006 g_code
--- NOTE | 2022-08-08 16:16 | ED Physician Documentation ---
History of Present Illness - Stated complaint Stated Complaint: KNEE PAIN - Chief complaint Chief Complaint: General - History obtained from History obtained from: Patient - Additonal information Additional information: 52-year-old woman with history of lupus presents with what she says is a lupus flare with increased joint pain all over over the last week. She specifically requests an increase in her chronic pain management and a steroid taper. She is noted to be in chronic pain management and receives 140 10/325 oxycodone/APAP per month with the last fill being 14 days ago. Review of Systems Constitutional: reports: Fatigue. denies: Fever, Chills Respiratory: reports: Wheezing. 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 : None Psych: Depression, Anxiety Musculoskeletal: Osteoarthritis, Fibromyalgia, Chronic back pain Derm: Other - Past Surgical History Past Surgical History: Yes General: Cholecystectomy Ortho: Arthroscopic surgery, Carpal Tunnel surgery HEENT: Rhinoplasty - Present Medications Home Medications: Ambulatory Orders Medication Instructions Recorded Confirmed Brexpiprazole [Rexulti] 1 mg PO DAILY 09/08/18 02/11/22 Rabeprazole Sodium [Aciphex] 40 mg ORAL DAILY 09/08/18 02/11/22 Sertraline HCl [Zoloft] 100 mg ORAL BID 09/08/18 02/11/22 Aspirin [Aspirin EC] 81 mg PO DAILY 12/04/20 02/11/22 Lisinopril [Zestril] 10 mg PO DAILY 12/04/20 02/11/22 metFORMIN [Glucophage] 500 mg PO DAILY 12/04/20 02/11/22 Albuterol Sulf [Ventolin Hfa 1 - 2 puffs INH Q4HR PRN 03/16/21 02/11/22 Inhaler] Alprazolam [Xanax] 1 mg PO TID 03/16/21 02/11/22 Furosemide [Lasix] 120 mg PO DAILY 03/16/21 02/11/22 Tiotropium [place] [Spiriva 1 puffs PO DAILY 03/16/21 02/11/22 Respimat] Ibuprofen [Motrin] 600 mg PO TID PRN #25 tab 12/02/21 02/11/22 Pantoprazole Sodium [Protonix] 40 mg PO DAILY #30 tab 02/01/22 02/11/22 Oxycodone HCl/Acetaminophen 1 tab PO 5XD 02/11/22 02/11/22 [Percocet 10-325 mg Tablet] Prochlorperazine Maleate 10 mg PO Q4HR PRN #20 tab 02/11/22 [Compazine] predniSONE [Deltasone] 40 mg PO DAILY 4 Days #8 tablet 02/25/22 Fluconazole [Diflucan] 150 mg PO Q3D #3 tablet 03/26/22 Oxycodone HCl/Acetaminophen 1 each PO Q6H PRN #18 tablet 03/26/22 [Percocet 7.5-325 mg Tablet] cephALEXin [Keflex] 500 mg PO QID 5 Days #20 cap 03/26/22 dexAMETHasone [Decadron] 4 mg PO DAILY #5 tablet 03/26/22 Clotrimazole 1% Cream [Lotrimin 1% 10 gm TOP QID #500 gr 03/30/22 Cream] Fluconazole [Diflucan] 1 tablet PO Q3D 1 Days #3 tablet 03/30/22 clindamycin HCL [Cleocin HCl] 300 mg PO QID #28 cap 03/30/22 Doxycycline Hyclate 100 mg PO BID #20 tab.sr 03/31/22 HYDROcod/ACETAM 5/325 [[place] 5/325] 1 ea PO Q6H PRN #7 tablet 04/19/22 Ibuprofen [Motrin] 600 mg PO TID PRN #25 tab 05/21/22 Oxycodone HCl/Acetaminophen 1 each PO Q8H PRN #20 tablet 05/21/22 [Percocet 7.5-325 mg Tablet] tiZANidine [Zanaflex] 4 mg PO Q8H PRN #25 tablet 05/21/22 predniSONE [Deltasone] 20 mg PO [id number] #21 tab 08/08/22 - Allergies Allergies/Adverse Reactions: Allergies Allergy/AdvReac Type Severity Reaction Status Date / Time Egg Derived Allergy Emesis, Verified 04/19/22 15:18 stomach pain eucalyptus Allergy Anaphylaxis Verified 04/19/22 15:18 naproxen [From Aleve] Allergy Cramps Verified 04/19/22 15:18 Penicillins Allergy Anaphylaxis Verified 04/19/22 15:18 Sulfa (Sulfonamide Allergy Cramps Verified 04/19/22 15:18 Antibiotics) ketorolac [From Toradol] AdvReac Headache Verified 04/19/22 15:18 - Social History Does the pt smoke?: Yes Smoking Status: Current every day smoker Does the pt drink ETOH?: No Does the pt have substance abuse?: No - Immunizations Immunizations are current?: Yes - POLST Patient has POLST: No PD ED PE NORMAL - Vitals Vital signs reviewed: Yes - General General: Alert and oriented X 3, No acute distress - Cardiac Cardiac: RRR, No murmur - Respiratory Respiratory: Other (Mild expiratory wheezing) - Extremities Extremities: Other (Knees are examined and nontender without effusions or redness or warmth.) - Neuro Neuro: Alert and oriented X 3, Normal speech Results - Vitals Vitals: Vital Signs - 24 hr 08/08/22 12:59 Temperature 37.0 C Heart Rate 85 Respiratory 18 Rate Blood Pressure 120/100 H O2 Saturation 99 Oxygen O2 Source Room air PD MEDICAL DECISION MAKING - ED course ED course: She specifically requested increase in her chronic pain management. Discussed with her that between hospital policy and that she is in pain management we would be unable to increase her pain regimen at this time and she should talk with her pain management physician. DELFINA E/GRADUATE ASSISTANT reviewed. She is already had 3 prescriptions for breakthrough narcotics from this ER this year, this is her 18th emergency department visit this year. Discussed with her department policies of no more than 3 narcotic prescriptions per year. She became slightly argumentative stating that she was not a "dope head." I reiterated that in no way or shape or form did I say that she was, simply following the policies And best practices that mandate no more than 3 prescriptions for narcotics per year from this ED. Departure - Departure Disposition: 01 Home, Self Care Clinical Impression: Lupus Condition: Good Record reviewed to determine appropriate education?: Yes Instructions: ED Chronic Pain Management Prescriptions: predniSONE [Deltasone] 20 mg PO [id number] #21 tab Comments: I sent your prescription electronically to [facility] in [place]. The policy of this emergency department is to not give more than 3 prescriptions for narcotics or other controlled substances in any 1 year. You have already surpassed this benchmark and we cannot prescribe narcotics for you. You are always welcome to seek emergency care here for this or new issues but there will likely be limitations in the prescription of narcotic pain medication.
[2022-08-08 16:22] VITALS: BP 152/81
== END 2022-08-08 16:20 | disposition home or self-care (01) ==
LOC: EDUNIT# → ED 12:23
DX: M32.9 Systemic lupus erythematosus, unspecified (principal); F17.200 Nicotine dependence, unspecified, uncomplicated; E11.9 Type 2 diabetes mellitus without complications; E03.9 Hypothyroidism, unspecified; Z79.84 Long term (current) use of oral hypoglycemic drugs
CPT/HCPCS: 99283

== ENCOUNTER 2022-12-28 08:33 | Outpatient (CLI) | payer MEDICAID ==
--- NOTE | 2022-12-29 10:22 | Mammography Report ---
BILATERAL DIGITAL SCREENING MAMMOGRAM 3D/2D: 12/28/2022 CLINICAL: Family history of breast cancer. Routine screening. Comparison is made to exams dated: 03/22/2021 ultrasound, 03/17/2021 specimen, 03/17/2021 mammogram, 021 localization, 02/17/2021 ultrasound, and 02/17/2021 mammogram - [facility]. There are scattered areas of fibroglandular density in both breasts (category b / 25%-50% glandular t issue). No significant masses, calcifications, or other findings are seen in either breast. There has been no significant interval change. IMPRESSION: NEGATIVE There is no mammographic evidence of malignancy. A 1 year screening mammogram is recommended. Based on the Tyrer Cuzick model (a risk assessment model) the patients lifetime risk is 15.3% and he r 10 year risk is 3.6%. According to the ACR, ACS, and NCCN guidelines, an annual breast MRI exam chelsea ng with mammogram is recommended if the patients lifetime risk is 20% or greater. This exam was interpreted at Station ID: [id number]. NOTE: For mammograms, a report in lay terms will be sent to the patient. Approximately 15% of breast malignancies will not be visualized mammographically. In the management of a palpable breast mass, a negative mammogram must not discourage biopsy of a clinically suspicious lesion. Electronically Signed By: Hua messer/nii:12/28/2022 10:48:31 letter sent: No_Letter ACR BI-RADS Category 1: Negative 3341F PARENCHYMAL PATTERN: (A) - The breast(s) demonstrate(s) scattered fibroglandular densities. BI-RADS CATEGORY: (1) - 1 Mammogram [id number] 1 year screening LATERALITY: (B)
== END 2022-12-28 08:34 | disposition home or self-care (01) ==
LOC: DI.N 08:33
PROVIDERS: ATTEND Nurse Practitioner
DX: Z12.31 Encounter for screening mammogram for malignant neoplasm of breast (principal); Z80.3 Family history of malignant neoplasm of breast

== ENCOUNTER 2022-12-30 07:40 | Outpatient (CLI) | payer MEDICAID ==
--- NOTE | 2022-12-30 14:38 | XRAY Report ---
PROCEDURE: Cervical Spine Complete INDICATIONS: NECK PAIN TECHNIQUE: 6 views of the cervical spine acquired. COMPARISON: None. FINDINGS: Bones: No fractures or dislocations to the C7-T1 level. Oblique images demonstrate no bony foramina l stenoses. Prominent osteophyte is present at C5 with minimal disc space narrowing at C5-6 and C6-7 . There is moderate to severe foraminal narrowing at C3-4 on the left. Soft tissues: No prevertebral soft tissue swelling. IMPRESSION: Early degenerative changes as above. Reviewed by: Shruthi Weiss MD on 12/30/2022 2:36 PM PDT Approved by: Shruthi Weiss MD on 12/30/2022 2:36 PM PDT Station ID: [id number]
== END 2022-12-30 07:41 | disposition home or self-care (01) ==
LOC: DI 07:40
PROVIDERS: ATTEND Acupuncturist
DX: M47.812 Spondylosis without myelopathy or radiculopathy, cervical region (principal)

== ENCOUNTER 2023-01-13 07:45 | Outpatient (CLI) | payer MEDICAID ==
--- NOTE | 2023-01-13 15:48 | MRI Report ---
PROCEDURE: MRI cervical spine without contrast INDICATIONS: CERVICAL RADICULOPATHY TECHNIQUE: Noncontrast sagittal T1 spin echo and T2 fast spin echo, sagittal STIR, foraminal oblique sagittal T2 fast spin echo, and axial gradient echo or T2 fast spin echo through the cervical spine. COMPARISON: None. FINDINGS: Image quality: Excellent. Alignment and Curvature: There is normal bony alignment. Bone Marrow: Marrow demonstrates normal overall signal. Spinal Cord: Visualized spinal cord has normal size and signal. No cerebellar tonsillar herniation. Paraspinous Soft Tissues: No paravertebral masses. Prevertebral soft tissues are normal in thicknes s. C2-C3: Normal in appearance. C3-C4: Normal in appearance. C4-C5: Normal in appearance. C5-C6: Normal in appearance. C6-C7: Disc space is maintained. Small posterior disc osteophyte complex results in mild central nakul nosis. No foraminal stenosis C7-T1: Normal in appearance. IMPRESSION: Mild degenerative disc disease without significant central or foraminal stenosis Reviewed by: Palmer Davis MD on 01/13/2023 2:46 PM ORALIA Approved by: Palmer Davis MD on 01/13/2023 2:46 PM ORALIA Station ID: [id number]
== END 2023-01-13 07:46 | disposition home or self-care (01) ==
LOC: DI 07:45
PROVIDERS: ATTEND Acupuncturist
DX: M50.123 Cervical disc disorder at C6-C7 level with radiculopathy (principal)

== ENCOUNTER 2023-01-17 11:46 | Outpatient (CLI) | payer MEDICAID | END 2023-01-17 11:47 | disposition EMS.NT | LOC: EMS 11:46 | DX: F41.9 Anxiety disorder, unspecified (principal); F41.0 Panic disorder [episodic paroxysmal anxiety] ==

== ENCOUNTER 2023-02-16 09:47 | Emergency (ER) | payer MEDICAID ==
[2023-02-16 10:30] LABS: RAPID STREP SCREEN Negative (Negative)
--- NOTE | 2023-02-16 10:50 | XRAY Report ---
PROCEDURE: Chest 1 View X-Ray INDICATIONS: cough/congestion TECHNIQUE: One view of the chest was acquired. COMPARISON: None. FINDINGS: Surgical changes and devices: None. Lungs and pleura: No pleural effusions or pneumothorax. Lungs are clear. Mediastinum: Mediastinal contours appear normal. Heart size is normal. Bones and chest wall: No suspicious bony lesions. Overlying soft tissues appear unremarkable. IMPRESSION: No acute cardiopulmonary process. Reviewed by: Balwinder Connors on 02/16/2023 10:49 AM PDT Approved by: Balwinder Connors on 02/16/2023 10:49 AM PDT Station ID: [id number]
[2023-02-16 11:14] LABS: CORONAVIRUS 229E-RESP PCR NOT DETECTED; CORONAVIRUS HKU1-RESP PCR NOT DETECTED; CORONAVIRUS NL63-RESP PCR NOT DETECTED; CORONAVIRUS OC43-RESP PCR NOT DETECTED; HUMAN METAPNEUMOVIRUS NOT DETECTED; INFLUENZA A- RESP PCR PANEL NOT DETECTED; INFLUENZA B - RESP PCR PANEL NOT DETECTED; PARAINFLUENZA VIRUS 1 NOT DETECTED; PARAINFLUENZA VIRUS 2 NOT DETECTED; PARAINFLUENZA VIRUS 3 NOT DETECTED; PARAINFLUENZA VIRUS 4 NOT DETECTED; RHINOVIRUS/ENTEROVIRUS NOT DETECTED; RSV- RESP PCR PANEL NOT DETECTED; SARS-CoV-2 -RESP PCR PANEL NOT DETECTED
[2023-02-16 11:15] LABS: B. PARAPERTUSSIS- RESP PCR PAN NOT DETECTED; B. PERTUSSIS- RESP PCR PANEL NOT DETECTED; C. PNEUMONIAE- RESP PCR PANEL NOT DETECTED; M. PNEUMONIAE- RESP PCR PANEL NOT DETECTED
[2023-02-16 11:28] LABS: BILIRUBIN,URINE NEGATIVE (NEGATIVE); GLUCOSE, URINE (UA) NEGATIVE (NEGATIVE); KETONES,URINE (UA) NEGATIVE (NEGATIVE); LEUKOCYTE ESTERASE, URINE NEGATIVE (NEGATIVE); NITRITE,URINE NEGATIVE (NEGATIVE); OCCULT BLOOD,URINE NEGATIVE (NEGATIVE); PROTEIN,URINE NEGATIVE (NEGATIVE); UROBILINOGEN,URINE 0.2 (NORMAL) E.U./dL (NORMAL)
[2023-02-16 11:29] LABS: CLARITY,URINE CLEAR (CLEAR)
[2023-02-16] MEDS ORDERED: ALBUTEROL 1 PUFF INH STA (11:41)
--- NOTE | 2023-02-16 11:43 | ED Physician Documentation ---
History of Present Illness - Stated complaint Stated Complaint: CH CONGESTION/WEAKNESS - Chief complaint Chief Complaint: General - Additonal information Additional information: 53-year-old female presents emergency department for evaluation of cough, congestion and difficulty breathing. She has a history of hypertension and diabetes. She also has a history of asthma. She is a daily tobacco user. States 2 weeks ago she began having cough and congestion. Worse at night. She took a leftover course of doxycycline for 6 days as well as prednisone for 6 days. Finished both of those medicines about 3 days ago. No fevers. Despite this she feels fatigued and tired. Denies exertional chest pain. She uses albuterol but not with a spacer. Review of Systems Eyes: reports: Reviewed and negative Ears: reports: Reviewed and negative Nose: reports: Rhinorrhea / runny nose, Congestion Throat: reports: Sore throat Respiratory: reports: Dyspnea, Cough, Wheezing GI: reports: Reviewed and negative : reports: Reviewed and negative Skin: reports: Reviewed and negative PD PAST MEDICAL HISTORY - Past Medical History Cardiovascular: None Respiratory: Asthma Neuro: Migraines Endocrine/Autoimmune: Type 2 diabetes, HyPOthyroidism GI: GERD, Cirrhosis [employer]: None : None Psych: Depression, Anxiety Musculoskeletal: Osteoarthritis, Fibromyalgia, Chronic back pain Derm: Other - Past Surgical History Past Surgical History: Yes General: Cholecystectomy Ortho: Arthroscopic surgery, Carpal Tunnel surgery HEENT: Rhinoplasty - Present Medications Home Medications: Ambulatory Orders Medication Instructions Recorded Confirmed Brexpiprazole [Rexulti] 1 mg PO DAILY 09/08/18 02/11/22 Rabeprazole Sodium [Aciphex] 40 mg ORAL DAILY 09/08/18 02/11/22 Sertraline HCl [Zoloft] 100 mg ORAL BID 09/08/18 02/11/22 Aspirin [Aspirin EC] 81 mg PO DAILY 12/04/20 02/11/22 Lisinopril [Zestril] 10 mg PO DAILY 12/04/20 02/11/22 metFORMIN [Glucophage] 500 mg PO DAILY 12/04/20 02/11/22 Albuterol Sulf [Ventolin Hfa 1 - 2 puffs INH Q4HR PRN 03/16/21 02/11/22 Inhaler] Alprazolam [Xanax] 1 mg PO TID 03/16/21 02/11/22 Furosemide [Lasix] 120 mg PO DAILY 03/16/21 02/11/22 Tiotropium [place] [Spiriva 1 puffs PO DAILY 03/16/21 02/11/22 Respimat] Ibuprofen [Motrin] 600 mg PO TID PRN #25 tab 12/02/21 02/11/22 Pantoprazole Sodium [Protonix] 40 mg PO DAILY #30 tab 02/01/22 02/11/22 Oxycodone HCl/Acetaminophen 1 tab PO 5XD 02/11/22 02/11/22 [Percocet 10-325 mg Tablet] Prochlorperazine Maleate 10 mg PO Q4HR PRN #20 tab 02/11/22 [Compazine] predniSONE [Deltasone] 40 mg PO DAILY 4 Days #8 tablet 02/25/22 Fluconazole [Diflucan] 150 mg PO Q3D #3 tablet 03/26/22 Oxycodone HCl/Acetaminophen 1 each PO Q6H PRN #18 tablet 03/26/22 [Percocet 7.5-325 mg Tablet] cephALEXin [Keflex] 500 mg PO QID 5 Days #20 cap 03/26/22 dexAMETHasone [Decadron] 4 mg PO DAILY #5 tablet 03/26/22 Clotrimazole 1% Cream [Lotrimin 1% 10 gm TOP QID #500 gr 03/30/22 Cream] Fluconazole [Diflucan] 1 tablet PO Q3D 1 Days #3 tablet 03/30/22 clindamycin HCL [Cleocin HCl] 300 mg PO QID #28 cap 03/30/22 Doxycycline Hyclate 100 mg PO BID #20 tab.sr 03/31/22 HYDROcod/ACETAM 5/325 [[place] 5/325] 1 ea PO Q6H PRN #7 tablet 04/19/22 Ibuprofen [Motrin] 600 mg PO TID PRN #25 tab 05/21/22 Oxycodone HCl/Acetaminophen 1 each PO Q8H PRN #20 tablet 05/21/22 [Percocet 7.5-325 mg Tablet] tiZANidine [Zanaflex] 4 mg PO Q8H PRN #25 tablet 05/21/22 predniSONE [Deltasone] 20 mg PO [id number] #21 tab 08/08/22 - Allergies Allergies/Adverse Reactions: Allergies Allergy/AdvReac Type Severity Reaction Status Date / Time Egg Derived Allergy Emesis, Verified 02/16/23 09:59 stomach pain eucalyptus Allergy Anaphylaxis Verified 02/16/23 09:59 naproxen [From Aleve] Allergy Cramps Verified 02/16/23 09:59 Penicillins Allergy Anaphylaxis Verified 02/16/23 09:59 Sulfa (Sulfonamide Allergy Cramps Verified 02/16/23 09:59 Antibiotics) ketorolac [From Toradol] AdvReac Headache Verified 02/16/23 09:59 - Social History Does the pt smoke?: Yes Smoking Status: Current every day smoker Does the pt drink ETOH?: No Does the pt have substance abuse?: No - Immunizations Immunizations are current?: Yes - POLST Patient has POLST: No PD ED PE NORMAL - General General: Alert and oriented X 3, No acute distress. No: Well developed/nourished (Obese) - HEENT HEENT: Atraumatic, Moist mucous membranes, Pharynx benign - Neck Neck: Supple, no meningeal sign, No adenopathy - Cardiac Cardiac: RRR, No murmur - Respiratory Respiratory: No respiratory distress. No: Clear bilaterally (Diffuse faint expiratory wheeze) - Abdomen Abdomen: Normal bowel sounds, Soft, Non tender, Non distended - Derm Derm: Warm and dry, No rash - Extremities Extremities: No deformity - Neuro Neuro: Alert and oriented X 3 Eye Opening: Spontaneous Motor: Obeys Commands Verbal: Oriented GCS Score: 15 Results - Vitals Vitals: Vital Signs - 24 hr 02/16/23 02/16/23 09:56 11:58 Temperature 36.5 C Heart Rate 84 81 Respiratory 20 18 Rate Blood Pressure 125/85 H 110/78 O2 Saturation 97 97 Oxygen O2 Source Room air - Labs Labs: Laboratory Tests 02/16/23 02/16/23 02/16/23 10:02 10:02 11:15 POC Whole Bld Glucose Urine Color DARK YELLOW Urine Clarity CLEAR Urine pH 8.0 H Ur Specific [place] 1.015 Urine Protein NEGATIVE Urine Glucose (UA) NEGATIVE Urine Ketones NEGATIVE Urine Occult Blood NEGATIVE Urine Nitrite NEGATIVE Urine Bilirubin NEGATIVE Urine Urobilinogen 0.2 (NORMAL) Ur Leukocyte Esterase NEGATIVE Ur Microscopic Review NOT INDICATED Urine Culture Comments NOT INDICATED Nasal Adenovirus (PCR) NOT DETECTED Nasal B. parapertussis DNA (PCR) NOT DETECTED Nasal Coronavir 229E PCR NOT DETECTED Nasal Coronavir HKU1 PCR NOT DETECTED Nasal Coronavir NL63 PCR NOT DETECTED Nasal Coronavir OC43 PCR NOT DETECTED Nasal Enterovir/Rhinovir PCR NOT DETECTED Nasal Influenza B PCR NOT DETECTED Nasal Influenza A PCR NOT DETECTED Nasal Parainfluen 1 PCR NOT DETECTED Nasal Parainfluen 2 PCR NOT DETECTED Nasal Parainfluen 3 PCR NOT DETECTED Nasal Parainfluen 4 PCR NOT DETECTED Nasal RSV (PCR) NOT DETECTED Nasal B.pertussis DNA PCR NOT DETECTED Nasal C.pneumoniae (PCR) NOT DETECTED Eladio Human Metapneumo PCR NOT DETECTED Nasal M.pneumoniae (PCR) NOT DETECTED Nasal SARS-CoV-2 (PCR) NOT DETECTED Group A Strep Rapid Negative 02/16/23 11:27 POC Whole Bld Glucose 140 H Urine Color Urine Clarity Urine pH Ur Specific [place] Urine Protein Urine Glucose (UA) Urine Ketones Urine Occult Blood Urine Nitrite Urine Bilirubin Urine Urobilinogen Ur Leukocyte Esterase Ur Microscopic Review Urine Culture Comments Nasal Adenovirus (PCR) Nasal B. parapertussis DNA (PCR) Nasal Coronavir 229E PCR Nasal Coronavir HKU1 PCR Nasal Coronavir NL63 PCR Nasal Coronavir OC43 PCR Nasal Enterovir/Rhinovir PCR Nasal Influenza B PCR Nasal Influenza A PCR Nasal Parainfluen 1 PCR Nasal Parainfluen 2 PCR Nasal Parainfluen 3 PCR Nasal Parainfluen 4 PCR Nasal RSV (PCR) Nasal B.pertussis DNA PCR Nasal C.pneumoniae (PCR) Eladio Human Metapneumo PCR Nasal M.pneumoniae (PCR) Nasal SARS-CoV-2 (PCR) Group A Strep Rapid - Rads (name of study) cxr Relevant Findings:: Final report received (No acute cardiopulmonary process) PD Medical Decision Making - ED course Complexity details: reviewed results, re-evaluated patient, considered differential, d/w patient ED course: 53-year-old female who has a history of diabetes, hypertension and is an active daily tobacco user presents emergency department for evaluation of 2 weeks cough and congestion. She is also endorsing fatigue. Reports her parents at home are sick with similar. She had used leftover doxycycline and prednisone completing each for a total of 6 days. This finished 3 days ago. Despite this feels that the cough is not improved. A chest x-ray was completed and shows no findings to suggest pneumonia, pleural effusion or pneumothorax. Respiratory PCR panel was also negative. On pulmonary auscultation she had faint diffuse scattered expiratory wheeze. However room air saturations were 99%. She was in no respiratory distress. I discussed with her how she uses the albuterol at home and she states that she puts it directly in her mouth. I did have RT come to the bedside to give her spacer teaching. She is also using Spiriva at home for long-acting control of her asthma symptoms. We discussed extensively that tobacco cessation will be important moving forward to help prevent development of COPD as well as reduce her risk of heart attack or strokes in the setting of diabetes. I do not feel she would benefit from a course of antibiotics given negative chest x-ray imaging as well as lack of fever. I have advised Mucinex, nasal saline rinses, Flonase and allergy medication to help with cough and congestion. Otherwise usual emergent return precautions were discussed for worsening symptoms. Advised to follow closely with PCP Departure - Departure Disposition: 01 Home, Self Care Clinical Impression: URI with cough and congestion, Mild asthma exacerbation Condition: Stable Record reviewed to determine appropriate education?: Yes Instructions: ALBUTEROL Oral Inhaler Follow-Up: Mary Gandhi ARNP [Primary Care Provider] - Comments: You came to the emergency department today because for about 2 weeks you have had cough and congestion that you do not feel is improving despite using a course of antibiotics and steroids. Your chest x-ray is unremarkable. It does not show any findings of pneumonia. When I listen to your lungs you were wheezy. You report to me that you are using the albuterol at home by simply putting the Device directly in your mouth. This is not an effective way to receive albuterol as you are unable to adequately time the breath to get the medication. We have had a respiratory therapy assist teach you how to use albuterol with a spacer to make sure that you can take the medicine correctly at home. In order to address the congestion and postnasal drip most assuredly contributing to your cough I do recommend that you take Mucinex 600 mg twice daily. I also recommend saline nasal rinses or the Christina pot each day in the shower. This will help rinse your sinuses of any debris or pollen contributing to the congestion. Once out of the shower use Flonase nasal spray in each nose. Also Zyrtec or Claritin can help. I suspect that you will have yearly bouts of recurrent cough like this as you are a daily smoker. Please stop if you are able. Smoking while having diabetes also markedly increases your risk of heart attack or stroke in the future. If you find that your cough is not improving over the next week despite using the medications as above and the inhaler with a spacer, you develop new fevers, have any bloody sputum, have exertional chest pain then please return immediately to the ER for second evaluation
[2023-02-16 12:00] VITALS: BP 110/78
== END 2023-02-16 12:43 | disposition home or self-care (01) ==
LOC: ED 09:47
DX: J06.9 Acute upper respiratory infection, unspecified (principal); J45.901 Unspecified asthma with (acute) exacerbation; F17.200 Nicotine dependence, unspecified, uncomplicated; Z20.822 Contact with and (suspected) exposure to COVID-19
CPT/HCPCS: 81001; 81003; 87070; 87086; 87430; 87633; 99283; 99284

== ENCOUNTER 2023-02-18 12:34 | Outpatient (CLI) | payer MEDICAID | END 2023-02-18 23:59 | disposition short-term general hospital (02) | LOC: EMS 12:34 | DX: R55 Syncope and collapse (principal); R42 Dizziness and giddiness; R06.00 Dyspnea, unspecified | CPT/HCPCS: A0425; A0429; A0888; A0999 ==

== ENCOUNTER 2023-03-07 16:08 | Outpatient (CLI) | payer MEDICAID | END 2023-03-07 16:09 | disposition left against medical advice (07) | LOC: EMS 16:08 | DX: I10 Essential (primary) hypertension (principal); R11.10 Vomiting, unspecified ==

== ENCOUNTER 2023-03-07 18:25 | Outpatient (CLI) | payer MEDICAID | END 2023-03-07 18:26 | disposition critical access hospital (66) | LOC: EMS 18:25 | DX: R51.9 Headache, unspecified (principal); R11.2 Nausea with vomiting, unspecified | CPT/HCPCS: A0425; A0427; A0999 ==

== ENCOUNTER 2023-03-07 18:41 | Emergency (ER) | payer MEDICAID ==
--- OUTSIDE RECORDS SUMMARY | 2023-03-07 19:00 | EXTERNAL MEDICAL SUMMARY RPT | Continuity of Care Document ---
Author Name Unknown Address [address] [place] [address] Phone Organization [place] Address [address] [place] [address] Phone Care Team Providers Care Vascular Ultrasound Technologist Name Role Phone Nikolai Gray Unavailable Unavailable Allergies and Intolerances date description facility type (no date) Penicillins [facility] (unknown) (no date) Sulfa (Sulfonamide Antibiotics) [facility] (unknown) (no date) [facility] dipyridamole [facility] (unknown) (no date) eucalyptus [facility] (unknown) (no date) ketorolac [facility] (unknown) (no date) naproxen [facility] (unknown) (no date) pseudoephedrine [facility] (unknown) Medications date description facility 2023-02-18 00:00 Prednisone [facility] 2023-02-18 00:00 [facility]ol [facility] Problems date description facility 2023-02-18 00:00 Coronavirus infection [facility] 2023-02-18 00:00 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 [facility] 2023-02-18 00:00 Asthma [facility] Procedures date description facility 2023-02-18 00:00 X-ray of chest, [facility] Results/Labs test date author facility value unit interpretation Result panel 1 (unknown) (no date) (unknown) [facility] (no value) (units unknown) (unknown) Result panel 2 (unknown) (no date) (unknown) [facility] (no value) (units unknown) (unknown) Result panel 3 (unknown) (no date) (unknown) [facility] (no value) (units unknown) (unknown) Result panel 4 (unknown) (no date) (unknown) [facility] (no value) (units unknown) (unknown) Result panel 5 (unknown) (no date) (unknown) [facility] (no value) (units unknown) (unknown) Result panel 6 (unknown) (no date) (unknown) [facility] (no value) (units unknown) (unknown) Result panel 7 (unknown) (no date) (unknown) [facility] (no value) (units unknown) (unknown) Result panel 8 (unknown) (no date) (unknown) [facility] (no value) (units unknown) (unknown) Result panel 9 (unknown) (no date) (unknown) [facility] (no value) (units unknown) (unknown) Result panel 10 (unknown) (no date) (unknown) [facility] (no value) (units unknown) (unknown) Result panel 11 (unknown) (no date) (unknown) [facility] (no value) (units unknown) (unknown) Result panel 12 (unknown) (no date) (unknown) [facility] (no value) (units unknown) (unknown) Result panel 13 (unknown) (no date) (unknown) [facility] (no value) (units unknown) (unknown) Result panel 14 (unknown) (no date) (unknown) [facility] (no value) (units unknown) (unknown) Result panel 15 (unknown) (no date) (unknown) [facility] (no value) (units unknown) (unknown) Result panel 16 (unknown) (no date) (unknown) [facility] (no value) (units unknown) (unknown) Result panel 17 (unknown) (no date) (unknown) [facility] (no value) (units unknown) (unknown) Result panel 18 (unknown) (no date) (unknown) [facility] (no value) (units unknown) (unknown) Result panel 19 (unknown) (no date) (unknown) [facility] (no value) (units unknown) (unknown) Result panel 20 (unknown) (no date) (unknown) [facility] (no value) (units unknown) (unknown) Result panel 21 (unknown) (no date) (unknown) [facility] (no value) (units unknown) (unknown) Result panel 22 (unknown) (no date) (unknown) [facility] (no value) (units unknown) (unknown) Result panel 23 (unknown) (no date) (unknown) [facility] (no value) (units unknown) (unknown) Result panel 24 (unknown) (no date) (unknown) [facility] (no value) (units unknown) (unknown) Result panel 25 (unknown) (no date) (unknown) [facility] (no value) (units unknown) (unknown) Result panel 26 (unknown) (no date) (unknown) [facility] (no value) (units unknown) (unknown) Result panel 27 (unknown) (no date) (unknown) [facility] (no value) (units unknown) (unknown) Result panel 28 (unknown) (no date) (unknown) [facility] (no value) (units unknown) (unknown) Result panel 29 (unknown) (no date) (unknown) [facility] (no value) (units unknown) (unknown) Result panel 30 (unknown) (no date) (unknown) [facility] (no value) (units unknown) (unknown) Result panel 31 (unknown) (no date) (unknown) [facility] (no value) (units unknown) (unknown) Result panel 32 (unknown) (no date) (unknown) [facility] (no value) (units unknown) (unknown) Result panel 33 (unknown) (no date) (unknown) [facility] (no value) (units unknown) (unknown) Result panel 34 (unknown) (no date) (unknown) [facility] (no value) (units unknown) (unknown) Result panel 35 (unknown) (no date) (unknown) [facility] (no value) (units unknown) (unknown) Result panel 36 (unknown) (no date) (unknown) [facility] (no value) (units unknown) (unknown) Result panel 37 (unknown) (no date) (unknown) [facility] (no value) (units unknown) (unknown) Result panel 38 (unknown) (no date) (unknown) [facility] (no value) (units unknown) (unknown) Result panel 39 (unknown) (no date) (unknown) [facility] (no value) (units unknown) (unknown) Result panel 40 (unknown) (no date) (unknown) [facility] (no value) (units unknown) (unknown) Result panel 41 (unknown) (no date) (unknown) [facility] (no value) (units unknown) (unknown) Result panel 42 (unknown) (no date) (unknown) [facility] (no value) (units unknown) (unknown) Result panel 43 (unknown) (no date) (unknown) [facility] (no value) (units unknown) (unknown) Result panel 44 (unknown) (no date) (unknown) [facility] (no value) (units unknown) (unknown) Result panel 45 (unknown) (no date) (unknown) [facility] (no value) (units unknown) (unknown) Result panel 46 (unknown) (no date) (unknown) [facility] (no value) (units unknown) (unknown) Result panel 47 (unknown) (no date) (unknown) [facility] (no value) (units unknown) (unknown) Result panel 48 (unknown) (no date) (unknown) [facility] (no value) (units unknown) (unknown) Result panel 49 (unknown) (no date) (unknown) [facility] (no value) (units unknown) (unknown) Result panel 50 (unknown) (no date) (unknown) [facility] (no value) (units unknown) (unknown) Result panel 51 (unknown) (no date) (unknown) [facility] (no value) (units unknown) (unknown) Result panel 52 (unknown) (no date) (unknown) [facility] (no value) (units unknown) (unknown) Result panel 53 (unknown) (no date) (unknown) [facility] (no value) (units unknown) (unknown) Result panel 54 (unknown) (no date) (unknown) [facility] (no value) (units unknown) (unknown) Result panel 55 (unknown) (no date) (unknown) [facility] (no value) (units unknown) (unknown) Result panel 56 (unknown) (no date) (unknown) [facility] (no value) (units unknown) (unknown) Result panel 57 (unknown) (no date) (unknown) [facility] (no value) (units unknown) (unknown) Result panel 58 (unknown) (no date) (unknown) [facility] (no value) (units unknown) (unknown) Result panel 59 (unknown) (no date) (unknown) [facility] (no value) (units unknown) (unknown) Result panel 60 (unknown) (no date) (unknown) [facility] (no value) (units unknown) (unknown) Result panel 61 (unknown) (no date) (unknown) [facility] (no value) (units unknown) (unknown) Result panel 62 (unknown) (no date) (unknown) [facility] (no value) (units unknown) (unknown) Result panel 63 (unknown) (no date) (unknown) [facility] (no value) (units unknown) (unknown) Result panel 64 (unknown) (no date) (unknown) [facility] (no value) (units unknown) (unknown) Result panel 65 (unknown) (no date) (unknown) [facility] (no value) (units unknown) (unknown) Result panel 66 (unknown) (no date) (unknown) [facility] (no value) (units unknown) (unknown) Result panel 67 (unknown) (no date) (unknown) [facility] (no value) (units unknown) (unknown) Result panel 68 (unknown) (no date) (unknown) [facility] (no value) (units unknown) (unknown) Result panel 69 (unknown) (no date) (unknown) [facility] (no value) (units unknown) (unknown) Result panel 70 (unknown) (no date) (unknown) [facility] (no value) (units unknown) (unknown) Result panel 71 (unknown) (no date) (unknown) [facility] (no value) (units unknown) (unknown) Result panel 72 (unknown) (no date) (unknown) [facility] (no value) (units unknown) (unknown) Result panel 73 (unknown) (no date) (unknown) [facility] (no value) (units unknown) (unknown) Result panel 74 (unknown) (no date) (unknown) [facility] (no value) (units unknown) (unknown) Result panel 75 (unknown) (no date) (unknown) [facility] (no value) (units unknown) (unknown) Result panel 76 (unknown) (no date) (unknown) [facility] (no value) (units unknown) (unknown) Result panel 77 (unknown) (no date) (unknown) [facility] (no value) (units unknown) (unknown) Result panel 78 (unknown) (no date) (unknown) [facility] (no value) (units unknown) (unknown) Result panel 79 (unknown) (no date) (unknown) [facility] (no value) (units unknown) (unknown) Result panel 80 (unknown) (no date) (unknown) [facility] (no value) (units unknown) (unknown) Result panel 81 (unknown) (no date) (unknown) [facility] (no value) (units unknown) (unknown) Result panel 82 (unknown) (no date) (unknown) [facility] (no value) (units unknown) (unknown) Result panel 83 (unknown) (no date) (unknown) [facility] (no value) (units unknown) (unknown) Result panel 84 (unknown) (no date) (unknown) [facility] (no value) (units unknown) (unknown) Result panel 85 (unknown) (no date) (unknown) [facility] (no value) (units unknown) (unknown) Result panel 86 (unknown) (no date) (unknown) [facility] (no value) (units unknown) (unknown) Result panel 87 (unknown) (no date) (unknown) [facility] (no value) (units unknown) (unknown) Result panel 88 (unknown) (no date) (unknown) [facility] (no value) (units unknown) (unknown) Result panel 89 (unknown) (no date) (unknown) [facility] (no value) (units unknown) (unknown) Result panel 90 (unknown) (no date) (unknown) [facility] (no value) (units unknown) (unknown) Result panel 91 (unknown) (no date) (unknown) [facility] (no value) (units unknown) (unknown) Result panel 92 (unknown) (no date) (unknown) [facility] (no value) (units unknown) (unknown) Result panel 93 (unknown) (no date) (unknown) [facility] (no value) (units unknown) (unknown) Result panel 94 (unknown) (no date) (unknown) [facility] (no value) (units unknown) (unknown) Result panel 95 (unknown) (no date) (unknown) [facility] (no value) (units unknown) (unknown) Result panel 96 (unknown) (no date) (unknown) [facility] (no value) (units unknown) (unknown) Result panel 97 (unknown) (no date) (unknown) [facility] (no value) (units unknown) (unknown) Result panel 98 (unknown) (no date) (unknown) [facility] (no value) (units unknown) (unknown) Result panel 99 (unknown) (no date) (unknown) [facility] (no value) (units unknown) (unknown) Result panel 100 (unknown) (no date) (unknown) [facility] (no value) (units unknown) (unknown) Result panel 101 (unknown) (no date) (unknown) [facility] (no value) (units unknown) (unknown) Result panel 102 (unknown) (no date) (unknown) [facility] (no value) (units unknown) (unknown) Result panel 103 (unknown) (no date) (unknown) [facility] (no value) (units unknown) (unknown) Result panel 104 (unknown) (no date) (unknown) [facility] (no value) (units unknown) (unknown) Result panel 105 (unknown) (no date) (unknown) [facility] (no value) (units unknown) (unknown) Result panel 106 (unknown) (no date) (unknown) [facility] (no value) (units unknown) (unknown) Result panel 107 (unknown) (no date) (unknown) [facility] (no value) (units unknown) (unknown) Result panel 108 (unknown) (no date) (unknown) [facility] (no value) (units unknown) (unknown) Result panel 109 (unknown) (no date) (unknown) [facility] (no value) (units unknown) (unknown) Result panel 110 (unknown) (no date) (unknown) [facility] (no value) (units unknown) (unknown) Result panel 111 (unknown) (no date) (unknown) [facility] (no value) (units unknown) (unknown) Result panel 112 (unknown) (no date) (unknown) [facility] (no value) (units unknown) (unknown) Result panel 113 (unknown) (no date) (unknown) [facility] (no value) (units unknown) (unknown) Result panel 114 (unknown) (no date) (unknown) [facility] (no value) (units unknown) (unknown) Result panel 115 (unknown) (no date) (unknown) [facility] (no value) (units unknown) (unknown) Result panel 116 (unknown) (no date) (unknown) [facility] (no value) (units unknown) (unknown) Result panel 117 (unknown) (no date) (unknown) [facility] (no value) (units unknown) (unknown) Result panel 118 (unknown) (no date) (unknown) [facility] (no value) (units unknown) (unknown) Result panel 119 (unknown) (no date) (unknown) [facility] (no value) (units unknown) (unknown) Result panel 120 (unknown) (no date) (unknown) [facility] (no value) (units unknown) (unknown) Result panel 121 (unknown) (no date) (unknown) [facility] (no value) (units unknown) (unknown) Result panel 122 (unknown) (no date) (unknown) [facility] (no value) (units unknown) (unknown) Result panel 123 (unknown) (no date) (unknown) [facility] (no value) (units unknown) (unknown) Result panel 124 (unknown) (no date) (unknown) [facility] (no value) (units unknown) (unknown) Result panel 125 (unknown) (no date) (unknown) [facility] (no value) (units unknown) (unknown) Result panel 126 (unknown) (no date) (unknown) [facility] (no value) (units unknown) (unknown) Result panel 127 (unknown) (no date) (unknown) [facility] (no value) (units unknown) (unknown) Result panel 128 (unknown) (no date) (unknown) [facility] (no value) (units unknown) (unknown) Result panel 129 (unknown) (no date) (unknown) [facility] (no value) (units unknown) (unknown) Result panel 130 (unknown) (no date) (unknown) [facility] (no value) (units unknown) (unknown) Result panel 131 (unknown) (no date) (unknown) [facility] (no value) (units unknown) (unknown) Result panel 132 (unknown) (no date) (unknown) [facility] (no value) (units unknown) (unknown) Result panel 133 (unknown) (no date) (unknown) [facility] (no value) (units unknown) (unknown) Result panel 134 (unknown) (no date) (unknown) [facility] (no value) (units unknown) (unknown) Result panel 135 (unknown) (no date) (unknown) [facility] (no value) (units unknown) (unknown) Result panel 136 (unknown) (no date) (unknown) [facility] (no value) (units unknown) (unknown) Result panel 137 (unknown) (no date) (unknown) [facility] (no value) (units unknown) (unknown) Result panel 138 (unknown) (no date) (unknown) [facility] (no value) (units unknown) (unknown) Result panel 139 (unknown) (no date) (unknown) [facility] (no value) (units unknown) (unknown) Result panel 140 (unknown) (no date) (unknown) [facility] (no value) (units unknown) (unknown) Result panel 141 (unknown) (no date) (unknown) [facility] (no value) (units unknown) (unknown) Result panel 142 (unknown) (no date) (unknown) [facility] (no value) (units unknown) (unknown) Result panel 143 (unknown) (no date) (unknown) [facility] (no value) (units unknown) (unknown) Result panel 144 (unknown) (no date) (unknown) [facility] (no value) (units unknown) (unknown) Result panel 145 (unknown) (no date) (unknown) [facility] (no value) (units unknown) (unknown) Result panel 146 (unknown) (no date) (unknown) [facility] (no value) (units unknown) (unknown) Result panel 147 (unknown) (no date) (unknown) [facility] (no value) (units unknown) (unknown) Result panel 148 (unknown) (no date) (unknown) [facility] (no value) (units unknown) (unknown) Result panel 149 (unknown) (no date) (unknown) [facility] (no value) (units unknown) (unknown) Result panel 150 (unknown) (no date) (unknown) [facility] (no value) (units unknown) (unknown) Result panel 151 (unknown) (no date) (unknown) [facility] (no value) (units unknown) (unknown) Result panel 152 (unknown) (no date) (unknown) [facility] (no value) (units unknown) (unknown) Result panel 153 (unknown) (no date) (unknown) [facility] (no value) (units unknown) (unknown) Result panel 154 (unknown) (no date) (unknown) [facility] (no value) (units unknown) (unknown) Result panel 155 (unknown) (no date) (unknown) [facility] (no value) (units unknown) (unknown) Result panel 156 (unknown) (no date) (unknown) [facility] (no value) (units unknown) (unknown) Result panel 157 (unknown) (no date) (unknown) [facility] (no value) (units unknown) (unknown) Result panel 158 (unknown) (no date) (unknown) [facility] (no value) (units unknown) (unknown) Result panel 159 (unknown) (no date) (unknown) [facility] (no value) (units unknown) (unknown) Result panel 160 (unknown) (no date) (unknown) [facility] (no value) (units unknown) (unknown) Result panel 161 (unknown) (no date) (unknown) [facility] (no value) (units unknown) (unknown) Result panel 162 (unknown) (no date) (unknown) [facility] (no value) (units unknown) (unknown) Result panel 163 (unknown) (no date) (unknown) [facility] (no value) (units unknown) (unknown) Result panel 164 (unknown) (no date) (unknown) [facility] (no value) (units unknown) (unknown) Result panel 165 (unknown) (no date) (unknown) [facility] (no value) (units unknown) (unknown) Result panel 166 (unknown) (no date) (unknown) [facility] (no value) (units unknown) (unknown) Result panel 167 (unknown) (no date) (unknown) [facility] (no value) (units unknown) (unknown) Result panel 168 (unknown) (no date) (unknown) [facility] (no value) (units unknown) (unknown) Result panel 169 (unknown) (no date) (unknown) [facility] (no value) (units unknown) (unknown) Result panel 170 (unknown) (no date) (unknown) [facility] (no value) (units unknown) (unknown) Result panel 171 (unknown) (no date) (unknown) [facility] (no value) (units unknown) (unknown) Result panel 172 (unknown) (no date) (unknown) [facility] (no value) (units unknown) (unknown) Result panel 173 (unknown) (no date) (unknown) [facility] (no value) (units unknown) (unknown) Result panel 174 (unknown) (no date) (unknown) [facility] (no value) (units unknown) (unknown) Result panel 175 (unknown) (no date) (unknown) [facility] (no value) (units unknown) (unknown) Result panel 176 (unknown) (no date) (unknown) [facility] (no value) (units unknown) (unknown) Result panel 177 (unknown) (no date) (unknown) [facility] (no value) (units unknown) (unknown) Result panel 178 (unknown) (no date) (unknown) [facility] (no value) (units unknown) (unknown) Result panel 179 (unknown) (no date) (unknown) [facility] (no value) (units unknown) (unknown) Result panel 180 (unknown) (no date) (unknown) [facility] (no value) (units unknown) (unknown) Result panel 181 (unknown) (no date) (unknown) [facility] (no value) (units unknown) (unknown) Result panel 182 (unknown) (no date) (unknown) [facility] (no value) (units unknown) (unknown) Result panel 183 (unknown) (no date) (unknown) [facility] (no value) (units unknown) (unknown) Result panel 184 (unknown) (no date) (unknown) [facility] (no value) (units unknown) (unknown) Result panel 185 (unknown) (no date) (unknown) [facility] (no value) (units unknown) (unknown) Result panel 186 (unknown) (no date) (unknown) (unknown) (no value) (units unknown) (unknown) (unknown) (no date) (unknown) (unknown) [id number] (units unknown) (unknown) (unknown) (no date) (unknown) (unknown) 02/18/23 (units unknown) (unknown) (unknown) (no date) (unknown) (unknown) [address] [place] [address] (units unknown) (unknown) (unknown) (no date) (unknown) (unknown) Accession Number: [id number] (units unknown) (unknown) (unknown) (no date) (unknown) (unknown) Age/Sex: 53 / F Date of Service: (units unknown) (unknown) (unknown) (no date) (unknown) (unknown) [place] [address] (units unknown) (unknown) (unknown) (no date) (unknown) (unknown) Approved by: Shruthi Weiss M.D. on 02/18/2023 at 13:54 (units unknown) (unknown) (unknown) (no date) (unknown) (unknown) Bones and chest wall : No suspicious bony lesions. Overlying soft tissues (units unknown) (unknown) (unknown) (no date) (unknown) (unknown) COMPARISON: None. (units unknown) (unknown) (unknown) (no date) (unknown) (unknown) : 1970 Acct:[id number] (units unknown) (unknown) (unknown) (no date) (unknown) (unknown) Dictated by: Shruthi Weiss M.D. on 02/18/2023 at 13:54 (units unknown) (unknown) (unknown) (no date) (unknown) (unknown) FINDINGS: (units unknown) (unknown) (unknown) (no date) (unknown) (unknown) IMPRESSION: No acute pulmonary process. (units unknown) (unknown) (unknown) (no date) (unknown) (unknown) INDICATIONS: Shortne ss of breath (units unknown) (unknown) (unknown) (no date) (unknown) (unknown) [facility] (units unknown) (unknown) (unknown) (no date) (unknown) (unknown) Loc: ED (units unknown) (unknown) (unknown) (no date) (unknown) (unknown) Lungs and pleura: Lungs are clear. No pleural effusions or pneumothorax. (units unknown) (unknown) (unknown) (no date) (unknown) (unknown) Mediastinum: Mediastinal contours appear normal. Heart size is normal. (units unknown) (unknown) (unknown) (no date) (unknown) (unknown) Ordering Provider: Bruce Levy D.O. (units unknown) (unknown) (unknown) (no date) (unknown) (unknown) PROCEDURE: XR CHEST 1V (units unknown) (unknown) (unknown) (no date) (unknown) (unknown) Patient: Anat Ramon MR#: [id number] (units unknown) (unknown) (unknown) (no date) (unknown) (unknown) Procedure: XR chest 1V (units unknown) (unknown) (unknown) (no date) (unknown) (unknown) Signed (units unknown) (unknown) (unknown) (no date) (unknown) (unknown) Surgical changes and devices: None. (units unknown) (unknown) (unknown) (no date) (unknown) (unknown) TECHNIQUE: One view of the chest was acquired. (units unknown) (unknown) (unknown) (no date) (unknown) (unknown) XRay Report (units unknown) (unknown) (unknown) (no date) (unknown) (unknown) appear (units unknown) (unknown) (unknown) (no date) (unknown) (unknown) unremarkable. (units unknown) (unknown) Result panel 187 (unknown) (no date) (unknown) (unknown) (no value) (units unknown) (unknown) (unknown) (no date) (unknown) (unknown) (Scale Score 4-6) (units unknown) (unknown) (unknown) (no date) (unknown) (unknown) [id number] (units unknown) (unknown) (unknown) (no date) (unknown) (unknown) 02/18/23 13:20 (units unknown) (unknown) (unknown) (no date) (unknown) (unknown) 02/18/23 (units unknown) (unknown) (unknown) (no date) (unknown) (unknown) 04/26/22 (units unknown) (unknown) (unknown) (no date) (unknown) (unknown) 1 applic topical BID Qty: 14 0RF (units unknown) (unknown) (unknown) (no date) (unknown) (unknown) 1 cap INHALATION DAILY (units unknown) (unknown) (unknown) (no date) (unknown) (unknown) 1 mg PO DAILY (units unknown) (unknown) (unknown) (no date) (unknown) (unknown) 1 mg PO QAM (units unknown) (unknown) (unknown) (no date) (unknown) (unknown) 1 patch topical PRN PRN (Reason: Pain (Scale Score 4-6)) (units unknown) (unknown) (unknown) (no date) (unknown) (unknown) 1 tab PO Q3H PRN (Reason: Pain (Scale Score 4-6)) (units unknown) (unknown) (unknown) (no date) (unknown) (unknown) 1 tab PO Q8H PRN (Reason: pain) Qty: 10 0RF (units unknown) (unknown) (unknown) (no date) (unknown) (unknown) 10 mg PO DAILY (units unknown) (unknown) (unknown) (no date) (unknown) (unknown) 100 mg PO BID (units unknown) (unknown) (unknown) (no date) (unknown) (unknown) 120 mg PO DAILY (units unknown) (unknown) (unknown) (no date) (unknown) (unknown) 13:14 (units unknown) (unknown) (unknown) (no date) (unknown) (unknown) 2 puff INHALATION Q4-6H PRN (Reason: Shortness Of Breath) (units unknown) (unknown) (unknown) (no date) (unknown) (unknown) 200 mg PO DAILY Qty: 7 0RF (units unknown) (unknown) (unknown) (no date) (unknown) (unknown) 300 mg PO BEDTIME Qt y: 14 0RF (units unknown) (unknown) (unknown) (no date) (unknown) (unknown) 40 mg PO QAM PRN (Reason: Acid Reflux) (units unknown) (unknown) (unknown) (no date) (unknown) (unknown) 40 mg PO QAM (units unknown) (unknown) (unknown) (no date) (unknown) (unknown) 500 mg PO BID PRN (Reason: Hyperglycemia) (units unknown) (unknown) (unknown) (no date) (unknown) (unknown) AcipHex Sprinkle 5 m g Capsule, Delayed Rel Sprinkle (units unknown) (unknown) (unknown) (no date) (unknown) (unknown) Age/Sex: 53 / F (units unknown) (unknown) (unknown) (no date) (unknown) (unknown) Allergies (units unknown) (unknown) (unknown) (no date) (unknown) (unknown) Allergy/AdvReac Type Severity Reaction Status Date / Time (units unknown) (unknown) (unknown) (no date) (unknown) (unknown) Antibiotics) (units unknown) (unknown) (unknown) (no date) (unknown) (unknown) Asthma (units unknown) (unknown) (unknown) (no date) (unknown) (unknown) Blood Pressure 107/5 8 L 02/18/23 13:14 (units unknown) (unknown) (unknown) (no date) (unknown) (unknown) Blood Pressure 107/5 8 L (units unknown) (unknown) (unknown) (no date) (unknown) (unknown) Breathing (units unknown) (unknown) (unknown) (no date) (unknown) (unknown) Chief complaint: Shortness of Breath/Dyspnea (units unknown) (unknown) (unknown) (no date) (unknown) (unknown) Chronic anemia (units unknown) (unknown) (unknown) (no date) (unknown) (unknown) Complete Blood Count AUTO DIFF Stat (units unknown) (unknown) (unknown) (no date) (unknown) (unknown) Comprehensive Metabolic Panel Stat (units unknown) (unknown) (unknown) (no date) (unknown) (unknown) Course (units unknown) (unknown) (unknown) (no date) (unknown) (unknown) : 1970 Acct:[id number] (units unknown) (unknown) (unknown) (no date) (unknown) (unknown) Date of Service: 02/18/23 (units unknown) (unknown) (unknown) (no date) (unknown) (unknown) Departure (units unknown) (unknown) (unknown) (no date) (unknown) (unknown) Diabetes mellitus, type 2 (units unknown) (unknown) (unknown) (no date) (unknown) (unknown) Discharge Plan (units unknown) (unknown) (unknown) (no date) (unknown) (unknown) Nikolai Gray MD [Primary Care Provider] (units unknown) (unknown) (unknown) (no date) (unknown) (unknown) ED Orders (units unknown) (unknown) (unknown) (no date) (unknown) (unknown) EKG-12 Lead Stat (units unknown) (unknown) (unknown) (no date) (unknown) (unknown) ER Physician: Bruce Levy D.O. (units unknown) (unknown) (unknown) (no date) (unknown) (unknown) Emergency Report (units unknown) (unknown) (unknown) (no date) (unknown) (unknown) Exam (units unknown) (unknown) (unknown) (no date) (unknown) (unknown) Fibromyalgia (units unknown) (unknown) (unknown) (no date) (unknown) (unknown) General (units unknown) (unknown) (unknown) (no date) (unknown) (unknown) HPI - General Adult (units unknown) (unknown) (unknown) (no date) (unknown) (unknown) History of arthrosco py of right shoulder (03/08/21) (units unknown) (unknown) (unknown) (no date) (unknown) (unknown) History of carpal tunnel release (units unknown) (unknown) (unknown) (no date) (unknown) (unknown) Home Medications (units unknown) (unknown) (unknown) (no date) (unknown) (unknown) Hx of abdominal surgery (units unknown) (unknown) (unknown) (no date) (unknown) (unknown) Hx of arthroscopic knee surgery (units unknown) (unknown) (unknown) (no date) (unknown) (unknown) Hx of cholecystectomy (units unknown) (unknown) (unknown) (no date) (unknown) (unknown) Hx of foot surgery (units unknown) (unknown) (unknown) (no date) (unknown) (unknown) Hx of lumbosacral spine surgery (units unknown) (unknown) (unknown) (no date) (unknown) (unknown) Initial Vital Signs (units unknown) (unknown) (unknown) (no date) (unknown) (unknown) Initial Vital Signs: (units unknown) (unknown) (unknown) (no date) (unknown) (unknown) [address] [address] (units unknown) (unknown) (unknown) (no date) (unknown) (unknown) Lactate (Lactic Acid ) Stat (units unknown) (unknown) (unknown) (no date) (unknown) (unknown) Lupus (units unknown) (unknown) (unknown) (no date) (unknown) (unknown) Measure peak expiratory flow ONCE (units unknown) (unknown) (unknown) (no date) (unknown) (unknown) Medical History (units unknown) (unknown) (unknown) (no date) (unknown) (unknown) Medication Instructions Recorded Confirmed (units unknown) (unknown) (unknown) (no date) (unknown) (unknown) Medication Instructions Recorded (units unknown) (unknown) (unknown) (no date) (unknown) (unknown) 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, non-alcoholic (units unknown) (unknown) (unknown) (no date) (unknown) (unknown) Mode of arrival: EMS (units unknown) (unknown) (unknown) (no date) (unknown) (unknown) NT-proBNP (BNP-Adult 18+) Stat (units unknown) (unknown) (unknown) (no date) (unknown) (unknown) No Action (units unknown) (unknown) (unknown) (no date) (unknown) (unknown) Obesity, morbid, BMI 50 or higher (units unknown) (unknown) (unknown) (no date) (unknown) (unknown) Ordered: (units unknown) (unknown) (unknown) (no date) (unknown) (unknown) Orders (units unknown) (unknown) (unknown) (no date) (unknown) (unknown) Osteoarthritis (units unknown) (unknown) (unknown) (no date) (unknown) (unknown) Oxygen Delivery Meth od Room Air 02/18/23 13:14 (units unknown) (unknown) (unknown) (no date) (unknown) (unknown) Oxygen Delivery Meth od Room Air (units unknown) (unknown) (unknown) (no date) (unknown) (unknown) Pain (units unknown) (unknown) (unknown) (no date) (unknown) (unknown) Patient Comments: (units unknown) (unknown) (unknown) (no date) (unknown) (unknown) Patient History (units unknown) (unknown) (unknown) (no date) (unknown) (unknown) Patient: Anat Ramon MR#: [id number] (units unknown) (unknown) (unknown) (no date) (unknown) (unknown) [place] Allergy Severe Difficulty Verified 06/12/22 21:48 (units unknown) (unknown) (unknown) (no date) (unknown) (unknown) Prescriptions: (units unknown) (unknown) (unknown) (no date) (unknown) (unknown) Previous Rx's (units unknown) (unknown) (unknown) (no date) (unknown) (unknown) Procalcitonin Stat (units unknown) (unknown) (unknown) (no date) (unknown) (unknown) Psoriatic arthritis (units unknown) (unknown) (unknown) (no date) (unknown) (unknown) Pulse Oximetry 98 02/18/23 13:14 (units unknown) (unknown) (unknown) (no date) (unknown) (unknown) Pulse Oximetry 98 (units unknown) (unknown) (unknown) (no date) (unknown) (unknown) Pulse Rate 97 H 02/18/23 13:14 (units unknown) (unknown) (unknown) (no date) (unknown) (unknown) Pulse Rate 97 H (units unknown) (unknown) (unknown) (no date) (unknown) (unknown) RT Consult Eval and Treat NOW (units unknown) (unknown) (unknown) (no date) (unknown) (unknown) Referrals: (units unknown) (unknown) (unknown) (no date) (unknown) (unknown) Related Data (units unknown) (unknown) (unknown) (no date) (unknown) (unknown) Respiratory Panel (Film Array) Stat (units unknown) (unknown) (unknown) (no date) (unknown) (unknown) Respiratory Rate 24 02/18/23 13:14 (units unknown) (unknown) (unknown) (no date) (unknown) (unknown) Respiratory Rate 24 (units unknown) (unknown) (unknown) (no date) (unknown) (unknown) Rexulti 2 mg Tablet (units unknown) (unknown) (unknown) (no date) (unknown) (unknown) Rx Instructions: (units unknown) (unknown) (unknown) (no date) (unknown) (unknown) See Rx Instructions .ROUTE .COMPLEX Qty: 21 0RF (units unknown) (unknown) (unknown) (no date) (unknown) (unknown) Signed By: (units unknown) (unknown) (unknown) (no date) (unknown) (unknown) Smoking Status: Current every day smoker (units unknown) (unknown) (unknown) (no date) (unknown) (unknown) Social History (units unknown) (unknown) (unknown) (no date) (unknown) (unknown) Source: patient and EMS (units unknown) (unknown) (unknown) (no date) (unknown) (unknown) Spiriva with HandiHaler 18 mcg Capsule, W/Inhalation Device (units unknown) (unknown) (unknown) (no date) (unknown) (unknown) Stated complaint: cough/congestion (units unknown) (unknown) (unknown) (no date) (unknown) (unknown) Substance Use Type: does not use (units unknown) (unknown) (unknown) (no date) (unknown) (unknown) Sulfa (Sulfonamide AdvReac Intermediate Joint Pain Verified 06/12/22 21:48 (units unknown) (unknown) (unknown) (no date) (unknown) (unknown) Surgical History (units unknown) (unknown) (unknown) (no date) (unknown) (unknown) TABLETS . (units unknown) (unknown) (unknown) (no date) (unknown) (unknown) TAKE 1 TABLET BY KELSI TH DAILY (units unknown) (unknown) (unknown) (no date) (unknown) (unknown) TAKE 1 TABLET BY KELSI TH EVERY 4 TO 6 HOURS NEEDED . MAXIMUM DAILY DOSE IS 5 (units unknown) (unknown) (unknown) (no date) (unknown) (unknown) TAKE 1 TABLET BY KELSI TH EVERY DAY (units unknown) (unknown) (unknown) (no date) (unknown) (unknown) Temperature 99.3 F 02/18/23 13:14 (units unknown) (unknown) (unknown) (no date) (unknown) (unknown) Temperature 99.3 F (units unknown) (unknown) (unknown) (no date) (unknown) (unknown) Time Seen by Provide r: 02/18/23 13:19 (units unknown) (unknown) (unknown) (no date) (unknown) (unknown) Troponin + CK Cardia c Panel Stat (units unknown) (unknown) (unknown) (no date) (unknown) (unknown) Vital Signs - 8 hr (units unknown) (unknown) (unknown) (no date) (unknown) (unknown) Vital Signs (units unknown) (unknown) (unknown) (no date) (unknown) (unknown) Vital signs: (units unknown) (unknown) (unknown) (no date) (unknown) (unknown) XR chest 1V Stat (units unknown) (unknown) (unknown) (no date) (unknown) (unknown) a dose pack (Medrol (Galdino)) #21 ea (units unknown) (unknown) (unknown) (no date) (unknown) (unknown) aerosol inhaler Shortness Of Breath (units unknown) (unknown) (unknown) (no date) (unknown) (unknown) albuterol sulfate 90 mcg/actuation 2 puff inhalation Q4-6H PRN 03/05/21 04/26/22 (units unknown) (unknown) (unknown) (no date) (unknown) (unknown) albuterol sulfate 90 mcg/actuation Hfa Aerosol Inhaler (units unknown) (unknown) (unknown) (no date) (unknown) (unknown) alcohol intake frequency: other (units unknown) (unknown) (unknown) (no date) (unknown) (unknown) alcohol intake: current (units unknown) (unknown) (unknown) (no date) (unknown) (unknown) alprazolam 3 mg tablet,extended 1 mg PO DAILY 03/05/21 04/26/22 (units unknown) (unknown) (unknown) (no date) (unknown) (unknown) alprazolam [Xanax XR ] 3 mg Tablet Extended Release 24 Hr (units unknown) (unknown) (unknown) (no date) (unknown) (unknown) brexpiprazole 2 mg tablet (Rexulti) 1 mg PO DAILY 03/05/21 04/26/22 (units unknown) (unknown) (unknown) (no date) (unknown) (unknown) [place] Allergy Severe Difficulty Verified 06/12/22 21:48 (units unknown) (unknown) (unknown) (no date) (unknown) (unknown) dipyridamole AdvReac Intermediate Joint Pain Verified 06/12/22 21:48 (units unknown) (unknown) (unknown) (no date) (unknown) (unknown) eggshell membrane Allergy Intermediate Abdominal Uncoded 03/08/21 07:16 (units unknown) (unknown) (unknown) (no date) (unknown) (unknown) eucalyptus Allergy Severe Difficulty Verified 06/12/22 21:48 (units unknown) (unknown) (unknown) (no date) (unknown) (unknown) fluconazole 200 mg tablet 200 mg PO DAILY #7 tabs 04/27/22 (units unknown) (unknown) (unknown) (no date) (unknown) (unknown) fluconazole 200 mg tablet (units unknown) (unknown) (unknown) (no date) (unknown) (unknown) furosemide 40 mg tablet (Lasix) 120 mg PO DAILY 03/05/21 04/26/22 (units unknown) (unknown) (unknown) (no date) (unknown) (unknown) furosemide [Lasix] 4 0 mg Tablet (units unknown) (unknown) (unknown) (no date) (unknown) (unknown) gabapentin 300 mg capsule 300 mg PO BEDTIME #14 caps 06/12/22 (units unknown) (unknown) (unknown) (no date) (unknown) (unknown) gabapentin 300 mg capsule (units unknown) (unknown) (unknown) (no date) (unknown) (unknown) household members: family (units unknown) (unknown) (unknown) (no date) (unknown) (unknown) ketorolac [From Toradol] Allergy Verified 06/12/22 21:48 (units unknown) (unknown) (unknown) (no date) (unknown) (unknown) lidocaine 5 % adhesi ve patch,medicated (units unknown) (unknown) (unknown) (no date) (unknown) (unknown) lidocaine 5 % topica l patch 1 patch topical PRN PRN Pain 04/26/22 04/26/22 (units unknown) (unknown) (unknown) (no date) (unknown) (unknown) lisinopril 10 mg Tablet (units unknown) (unknown) (unknown) (no date) (unknown) (unknown) lisinopril 10 mg tablet 10 mg PO DAILY 03/05/21 04/26/22 (units unknown) (unknown) (unknown) (no date) (unknown) (unknown) metformin 500 mg Tablet (units unknown) (unknown) (unknown) (no date) (unknown) (unknown) metformin 500 mg tablet 500 mg PO BID PRN Hyperglycemia 03/05/21 04/26/22 (units unknown) (unknown) (unknown) (no date) (unknown) (unknown) methylprednisolone 4 mg tablets in See Rx Instructions PO .COMPLEX 06/12/22 (units unknown) (unknown) (unknown) (no date) (unknown) (unknown) methylprednisolone [Medrol (Galdino)] 4 mg tablets,dose pack (units unknown) (unknown) (unknown) (no date) (unknown) (unknown) mg tablet (Percocet) (units unknown) (unknown) (unknown) (no date) (unknown) (unknown) mg tablet 4-6) (units unknown) (unknown) (unknown) (no date) (unknown) (unknown) naproxen AdvReac Intermediate Joint Pain Verified 06/12/22 21:48 (units unknown) (unknown) (unknown) (no date) (unknown) (unknown) nystatin 100,000 unit/gram topical 1 applic topical BID #14 grams 04/27/22 (units unknown) (unknown) (unknown) (no date) (unknown) (unknown) nystatin [Nystop] 100,000 unit/gram Powder (units unknown) (unknown) (unknown) (no date) (unknown) (unknown) orally per package directions (units unknown) (unknown) (unknown) (no date) (unknown) (unknown) oxycodone-acetaminop he n 10 mg-325 1 tab PO Q3H PRN Pain (Scale Score 07/12/22 (units unknown) (unknown) (unknown) (no date) (unknown) (unknown) oxycodone-acetaminop he n 10-325 mg tablet (units unknown) (unknown) (unknown) (no date) (unknown) (unknown) oxycodone-acetaminop he n 5 mg-325 1 tab PO Q8H PRN pain #10 tabs 06/14/22 (units unknown) (unknown) (unknown) (no date) (unknown) (unknown) oxycodone-acetaminop he n [Percocet] 5-325 mg tablet (units unknown) (unknown) (unknown) (no date) (unknown) (unknown) pantoprazole 40 mg tablet,delayed 40 mg PO QAM PRN Acid Reflux 04/26/22 04/26/22 (units unknown) (unknown) (unknown) (no date) (unknown) (unknown) pantoprazole 40 mg tablet,delayed release (DR/EC) (units unknown) (unknown) (unknown) (no date) (unknown) (unknown) powder (Nystop) (units unknown) (unknown) (unknown) (no date) (unknown) (unknown) pseudoephedrine AdvReac Intermediate Joint Pain Verified 06/12/22 21:48 (units unknown) (unknown) (unknown) (no date) (unknown) (unknown) rabeprazole 5 mg capsule,delayed 40 mg PO QAM 03/05/21 04/26/22 (units unknown) (unknown) (unknown) (no date) (unknown) (unknown) release 24 hr (Xanax XR) (units unknown) (unknown) (unknown) (no date) (unknown) (unknown) release sprinkle (AcipHex Sprinkle) (units unknown) (unknown) (unknown) (no date) (unknown) (unknown) release (units unknown) (unknown) (unknown) (no date) (unknown) (unknown) sertraline 25 mg tablet (Zoloft) 100 mg PO BID 03/05/21 04/26/22 (units unknown) (unknown) (unknown) (no date) (unknown) (unknown) sertraline [Zoloft] 25 mg Tablet (units unknown) (unknown) (unknown) (no date) (unknown) (unknown) tiotropium bromide 1 8 mcg capsule 1 cap inhalation DAILY 03/05/21 04/26/22 (units unknown) (unknown) (unknown) (no date) (unknown) (unknown) tobacco type: cigarettes (units unknown) (unknown) (unknown) (no date) (unknown) (unknown) valacyclovir 1 gram tablet 1 mg PO QAM 04/26/22 04/26/22 (units unknown) (unknown) (unknown) (no date) (unknown) (unknown) valacyclovir 1 gram tablet (units unknown) (unknown) (unknown) (no date) (unknown) (unknown) with HandiHaler) (units unknown) (unknown) (unknown) (no date) (unknown) (unknown) with inhalation shadia ce (Spiriva (units unknown) (unknown) Result panel 188 (unknown) (no date) (unknown) (unknown) (no value) (units unknown) (unknown) (unknown) (no date) (unknown) (unknown) (Scale Score 4-6) (units unknown) (unknown) (unknown) (no date) (unknown) (unknown) [id number] (units unknown) (unknown) (unknown) (no date) (unknown) (unknown) 02/18/23 13:20 (units unknown) (unknown) (unknown) (no date) (unknown) (unknown) 02/18/23 13:26 (units unknown) (unknown) (unknown) (no date) (unknown) (unknown) 02/18/23 (units unknown) (unknown) (unknown) (no date) (unknown) (unknown) 04/26/22 (units unknown) (unknown) (unknown) (no date) (unknown) (unknown) 1 applic topical BID Qty: 14 0RF (units unknown) (unknown) (unknown) (no date) (unknown) (unknown) 1 cap INHALATION DAILY (units unknown) (unknown) (unknown) (no date) (unknown) (unknown) 1 mg PO DAILY (units unknown) (unknown) (unknown) (no date) (unknown) (unknown) 1 mg PO QAM (units unknown) (unknown) (unknown) (no date) (unknown) (unknown) 1 patch topical PRN PRN (Reason: Pain (Scale Score 4-6)) (units unknown) (unknown) (unknown) (no date) (unknown) (unknown) 1 tab PO Q3H PRN (Reason: Pain (Scale Score 4-6)) (units unknown) (unknown) (unknown) (no date) (unknown) (unknown) 1 tab PO Q8H PRN (Reason: pain) Qty: 10 0RF (units unknown) (unknown) (unknown) (no date) (unknown) (unknown) 10 mg PO DAILY (units unknown) (unknown) (unknown) (no date) (unknown) (unknown) 100 mg PO BID (units unknown) (unknown) (unknown) (no date) (unknown) (unknown) 120 mg PO DAILY (units unknown) (unknown) (unknown) (no date) (unknown) (unknown) 13:14 (units unknown) (unknown) (unknown) (no date) (unknown) (unknown) 2 puff INHALATION Q4-6H PRN (Reason: Shortness Of Breath) (units unknown) (unknown) (unknown) (no date) (unknown) (unknown) 200 mg PO DAILY Qty: 7 0RF (units unknown) (unknown) (unknown) (no date) (unknown) (unknown) 300 mg PO BEDTIME Qt y: 14 0RF (units unknown) (unknown) (unknown) (no date) (unknown) (unknown) 40 mg PO QAM PRN (Reason: Acid Reflux) (units unknown) (unknown) (unknown) (no date) (unknown) (unknown) 40 mg PO QAM (units unknown) (unknown) (unknown) (no date) (unknown) (unknown) 500 mg PO BID PRN (Reason: Hyperglycemia) (units unknown) (unknown) (unknown) (no date) (unknown) (unknown) AcipHex Sprinkle 5 m g Capsule, Delayed Rel Sprinkle (units unknown) (unknown) (unknown) (no date) (unknown) (unknown) Age/Sex: 53 / F (units unknown) (unknown) (unknown) (no date) (unknown) (unknown) Albuterol/Ipratropiu m (Albuterol/Ipratropium 3 Ml Ampul) 3 ml INH NOW ONE (units unknown) (unknown) (unknown) (no date) (unknown) (unknown) Allergies (units unknown) (unknown) (unknown) (no date) (unknown) (unknown) Allergy/AdvReac Type Severity Reaction Status Date / Time (units unknown) (unknown) (unknown) (no date) (unknown) (unknown) Antibiotics) (units unknown) (unknown) (unknown) (no date) (unknown) (unknown) Asthma (units unknown) (unknown) (unknown) (no date) (unknown) (unknown) Attestation: I personally reviewed and interpreted this ECG as follows: (units unknown) (unknown) (unknown) (no date) (unknown) (unknown) Auscultation: rhonch i and wheezes (units unknown) (unknown) (unknown) (no date) (unknown) (unknown) Blood Pressure 107/5 8 L 02/18/23 13:14 (units unknown) (unknown) (unknown) (no date) (unknown) (unknown) Blood Pressure 107/5 8 L (units unknown) (unknown) (unknown) (no date) (unknown) (unknown) Breathing (units unknown) (unknown) (unknown) (no date) (unknown) (unknown) Cardio (units unknown) (unknown) (unknown) (no date) (unknown) (unknown) Chest (units unknown) (unknown) (unknown) (no date) (unknown) (unknown) Chest: No crepitus (units unknown) (unknown) (unknown) (no date) (unknown) (unknown) Chief complaint: Shortness of Breath/Dyspnea (units unknown) (unknown) (unknown) (no date) (unknown) (unknown) Chronic anemia (units unknown) (unknown) (unknown) (no date) (unknown) (unknown) Complete Blood Count AUTO DIFF Stat (units unknown) (unknown) (unknown) (no date) (unknown) (unknown) Comprehensive Metabolic Panel Stat (units unknown) (unknown) (unknown) (no date) (unknown) (unknown) Const (units unknown) (unknown) (unknown) (no date) (unknown) (unknown) Course (units unknown) (unknown) (unknown) (no date) (unknown) (unknown) : 1970 Acct:[id number] (units unknown) (unknown) (unknown) (no date) (unknown) (unknown) Date of Service: 02/18/23 (units unknown) (unknown) (unknown) (no date) (unknown) (unknown) Departure (units unknown) (unknown) (unknown) (no date) (unknown) (unknown) Diabetes mellitus, type 2 (units unknown) (unknown) (unknown) (no date) (unknown) (unknown) Discharge Plan (units unknown) (unknown) (unknown) (no date) (unknown) (unknown) Discontinued Medications (units unknown) (unknown) (unknown) (no date) (unknown) (unknown) Nikolai Gray MD [Primary Care Provider] (units unknown) (unknown) (unknown) (no date) (unknown) (unknown) ECG Data (units unknown) (unknown) (unknown) (no date) (unknown) (unknown) ED Orders (units unknown) (unknown) (unknown) (no date) (unknown) (unknown) EKG-12 Lead Stat (units unknown) (unknown) (unknown) (no date) (unknown) (unknown) ER Physician: Bruce Levy D.O. (units unknown) (unknown) (unknown) (no date) (unknown) (unknown) Effort + Inspection: normal respiratory effort and cough (units unknown) (unknown) (unknown) (no date) (unknown) (unknown) Emergency Report (units unknown) (unknown) (unknown) (no date) (unknown) (unknown) Exam (units unknown) (unknown) (unknown) (no date) (unknown) (unknown) Extrem (units unknown) (unknown) (unknown) (no date) (unknown) (unknown) Fibromyalgia (units unknown) (unknown) (unknown) (no date) (unknown) (unknown) GI (units unknown) (unknown) (unknown) (no date) (unknown) (unknown) General (units unknown) (unknown) (unknown) (no date) (unknown) (unknown) General: cooperative and comfortable (units unknown) (unknown) (unknown) (no date) (unknown) (unknown) General: no rashes o r lesions noted (units unknown) (unknown) (unknown) (no date) (unknown) (unknown) General: normal to inspection and capillary refill normal (units unknown) (unknown) (unknown) (no date) (unknown) (unknown) General: patient alert, patient awake and moves all extremities (units unknown) (unknown) (unknown) (no date) (unknown) (unknown) HENMT (units unknown) (unknown) (unknown) (no date) (unknown) (unknown) HPI - General Adult (units unknown) (unknown) (unknown) (no date) (unknown) (unknown) HPI narrative: (units unknown) (unknown) (unknown) (no date) (unknown) (unknown) Head: normal to inspection and normocephalic (units unknown) (unknown) (unknown) (no date) (unknown) (unknown) History of Present Illness (units unknown) (unknown) (unknown) (no date) (unknown) (unknown) History of arthrosco py of right shoulder (03/08/21) (units unknown) (unknown) (unknown) (no date) (unknown) (unknown) History of carpal tunnel release (units unknown) (unknown) (unknown) (no date) (unknown) (unknown) Home Medications (units unknown) (unknown) (unknown) (no date) (unknown) (unknown) Hx of abdominal surgery (units unknown) (unknown) (unknown) (no date) (unknown) (unknown) Hx of arthroscopic knee surgery (units unknown) (unknown) (unknown) (no date) (unknown) (unknown) Hx of cholecystectomy (units unknown) (unknown) (unknown) (no date) (unknown) (unknown) Hx of foot surgery (units unknown) (unknown) (unknown) (no date) (unknown) (unknown) Hx of lumbosacral spine surgery (units unknown) (unknown) (unknown) (no date) (unknown) (unknown) Initial Vital Signs (units unknown) (unknown) (unknown) (no date) (unknown) (unknown) Initial Vital Signs: (units unknown) (unknown) (unknown) (no date) (unknown) (unknown) Inspection: normal t o inspection (units unknown) (unknown) (unknown) (no date) (unknown) (unknown) Interpretation: (units unknown) (unknown) (unknown) (no date) (unknown) (unknown) [address] [address] (units unknown) (unknown) (unknown) (no date) (unknown) (unknown) Limitations: no limitations (units unknown) (unknown) (unknown) (no date) (unknown) (unknown) Lupus (units unknown) (unknown) (unknown) (no date) (unknown) (unknown) Measure peak expiratory flow ONCE 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, non-alcoholic (units unknown) (unknown) (unknown) (no date) (unknown) (unknown) Mode of arrival: EMS (units unknown) (unknown) (unknown) (no date) (unknown) (unknown) NT-proBNP (BNP-Adult 18+) Stat (units unknown) (unknown) (unknown) (no date) (unknown) (unknown) Neuro (units unknown) (unknown) (unknown) (no date) (unknown) (unknown) No Action (units unknown) (unknown) (unknown) (no date) (unknown) (unknown) No ST T wave changes (units unknown) (unknown) (unknown) (no date) (unknown) (unknown) Normal QRS (units unknown) (unknown) (unknown) (no date) (unknown) (unknown) Obesity, morbid, BMI 50 or higher (units unknown) (unknown) (unknown) (no date) (unknown) (unknown) Ordered: (units unknown) (unknown) (unknown) (no date) (unknown) (unknown) Orders (units unknown) (unknown) (unknown) (no date) (unknown) (unknown) Osteoarthritis (units unknown) (unknown) (unknown) (no date) (unknown) (unknown) Oxygen Delivery Meth od Room Air 02/18/23 13:14 (units unknown) (unknown) (unknown) (no date) (unknown) (unknown) Oxygen Delivery Meth od Room Air (units unknown) (unknown) (unknown) (no date) (unknown) (unknown) Pain (units unknown) (unknown) (unknown) (no date) (unknown) (unknown) Patient Comments: (units unknown) (unknown) (unknown) (no date) (unknown) (unknown) Patient History (units unknown) (unknown) (unknown) (no date) (unknown) (unknown) Patient is a 53-year-old female. History of asthma. Is here for evaluation of (units unknown) (unknown) (unknown) (no date) (unknown) (unknown) Patient: Anat Ramon MR#: [id number] (units unknown) (unknown) (unknown) (no date) (unknown) (unknown) [place] Allergy Severe Difficulty Verified 06/12/22 21:48 (units unknown) (unknown) (unknown) (no date) (unknown) (unknown) Prescriptions: (units unknown) (unknown) (unknown) (no date) (unknown) (unknown) Previous Rx's (units unknown) (unknown) (unknown) (no date) (unknown) (unknown) Psoriatic arthritis (units unknown) (unknown) (unknown) (no date) (unknown) (unknown) Pulse Oximetry 98 02/18/23 13:14 (units unknown) (unknown) (unknown) (no date) (unknown) (unknown) Pulse Oximetry 98 (units unknown) (unknown) (unknown) (no date) (unknown) (unknown) Pulse Rate 97 H 02/18/23 13:14 (units unknown) (unknown) (unknown) (no date) (unknown) (unknown) Pulse Rate 97 H (units unknown) (unknown) (unknown) (no date) (unknown) (unknown) ROS Unobtainable: Al l systems reviewed + are unremarkable except as noted in HPI (units unknown) (unknown) (unknown) (no date) (unknown) (unknown) RT Consult Eval and Treat NOW (units unknown) (unknown) (unknown) (no date) (unknown) (unknown) Rate: regular rate (units unknown) (unknown) (unknown) (no date) (unknown) (unknown) Referrals: (units unknown) (unknown) (unknown) (no date) (unknown) (unknown) Related Data (units unknown) (unknown) (unknown) (no date) (unknown) (unknown) Resp (units unknown) (unknown) (unknown) (no date) (unknown) (unknown) Respiratory Panel (Film Array) Stat (units unknown) (unknown) (unknown) (no date) (unknown) (unknown) Respiratory Rate 24 02/18/23 13:14 (units unknown) (unknown) (unknown) (no date) (unknown) (unknown) Respiratory Rate 24 (units unknown) (unknown) (unknown) (no date) (unknown) (unknown) Review of Systems (units unknown) (unknown) (unknown) (no date) (unknown) (unknown) Rexulti 2 mg Tablet (units unknown) (unknown) (unknown) (no date) (unknown) (unknown) Rhythm: regular rhythm (units unknown) (unknown) (unknown) (no date) (unknown) (unknown) Rx Instructions: (units unknown) (unknown) (unknown) (no date) (unknown) (unknown) See Rx Instructions .ROUTE .COMPLEX Qty: 21 0RF (units unknown) (unknown) (unknown) (no date) (unknown) (unknown) Signed By: (units unknown) (unknown) (unknown) (no date) (unknown) (unknown) Sinus rhythm (units unknown) (unknown) (unknown) (no date) (unknown) (unknown) Skin (units unknown) (unknown) (unknown) (no date) (unknown) (unknown) Smoking Status: Current every day smoker (units unknown) (unknown) (unknown) (no date) (unknown) (unknown) Social History (units unknown) (unknown) (unknown) (no date) (unknown) (unknown) Source: patient and EMS (units unknown) (unknown) (unknown) (no date) (unknown) (unknown) Spiriva with HandiHaler 18 mcg Capsule, W/Inhalation Device (units unknown) (unknown) (unknown) (no date) (unknown) (unknown) Stated complaint: cough/congestion (units unknown) (unknown) (unknown) (no date) (unknown) (unknown) Stop: 02/18/23 13:27 (units unknown) (unknown) (unknown) (no date) (unknown) (unknown) Substance Use Type: does not use (units unknown) (unknown) (unknown) (no date) (unknown) (unknown) Sulfa (Sulfonamide AdvReac Intermediate Joint Pain Verified 06/12/22 21:48 (units unknown) (unknown) (unknown) (no date) (unknown) (unknown) Surgical History (units unknown) (unknown) (unknown) (no date) (unknown) (unknown) TABLETS . (units unknown) (unknown) (unknown) (no date) (unknown) (unknown) TAKE 1 TABLET BY KELSI TH DAILY (units unknown) (unknown) (unknown) (no date) (unknown) (unknown) TAKE 1 TABLET BY KELSI TH EVERY 4 TO 6 HOURS NEEDED . MAXIMUM DAILY DOSE IS 5 (units unknown) (unknown) (unknown) (no date) (unknown) (unknown) TAKE 1 TABLET BY KELSI TH EVERY DAY (units unknown) (unknown) (unknown) (no date) (unknown) (unknown) Temperature 99.3 F 02/18/23 13:14 (units unknown) (unknown) (unknown) (no date) (unknown) (unknown) Temperature 99.3 F (units unknown) (unknown) (unknown) (no date) (unknown) (unknown) Time Seen by Provide r: 02/18/23 13:19 (units unknown) (unknown) (unknown) (no date) (unknown) (unknown) Troponin + CK Cardia c Panel Stat (units unknown) (unknown) (unknown) (no date) (unknown) (unknown) Ventricular rate 85 (units unknown) (unknown) (unknown) (no date) (unknown) (unknown) Vital Signs - 8 hr (units unknown) (unknown) (unknown) (no date) (unknown) (unknown) Vital Signs (units unknown) (unknown) (unknown) (no date) (unknown) (unknown) Vital signs: (units unknown) (unknown) (unknown) (no date) (unknown) (unknown) XR chest 1V Stat (units unknown) (unknown) (unknown) (no date) (unknown) (unknown) a dose pack (Medrol (Galdino)) #21 ea (units unknown) (unknown) (unknown) (no date) (unknown) (unknown) aerosol inhaler Shortness Of Breath (units unknown) (unknown) (unknown) (no date) (unknown) (unknown) albuterol sulfate 90 mcg/actuation 2 puff inhalation Q4-6H PRN 03/05/21 04/26/22 (units unknown) (unknown) (unknown) (no date) (unknown) (unknown) albuterol sulfate 90 mcg/actuation Hfa Aerosol Inhaler (units unknown) (unknown) (unknown) (no date) (unknown) (unknown) alcohol intake frequency: other (units unknown) (unknown) (unknown) (no date) (unknown) (unknown) alcohol intake: current (units unknown) (unknown) (unknown) (no date) (unknown) (unknown) alprazolam 3 mg tablet,extended 1 mg PO DAILY 03/05/21 04/26/22 (units unknown) (unknown) (unknown) (no date) (unknown) (unknown) alprazolam [Xanax XR ] 3 mg Tablet Extended Release 24 Hr (units unknown) (unknown) (unknown) (no date) (unknown) (unknown) and below (units unknown) (unknown) (unknown) (no date) (unknown) (unknown) brexpiprazole 2 mg tablet (Rexulti) 1 mg PO DAILY 03/05/21 04/26/22 (units unknown) (unknown) (unknown) (no date) (unknown) (unknown) [place] Allergy Severe Difficulty Verified 06/12/22 21:48 (units unknown) (unknown) (unknown) (no date) (unknown) (unknown) cough and congestion for the past several weeks. She was at an outside facility (units unknown) (unknown) (unknown) (no date) (unknown) (unknown) dipyridamole AdvReac Intermediate Joint Pain Verified 06/12/22 21:48 (units unknown) (unknown) (unknown) (no date) (unknown) (unknown) eggshell membrane Allergy Intermediate Abdominal Uncoded 03/08/21 07:16 (units unknown) (unknown) (unknown) (no date) (unknown) (unknown) eucalyptus Allergy Severe Difficulty Verified 06/12/22 21:48 (units unknown) (unknown) (unknown) (no date) (unknown) (unknown) fevers. She states that using the albuterol at home causes her to become very (units unknown) (unknown) (unknown) (no date) (unknown) (unknown) fluconazole 200 mg tablet 200 mg PO DAILY #7 tabs 04/27/22 (units unknown) (unknown) (unknown) (no date) (unknown) (unknown) fluconazole 200 mg tablet (units unknown) (unknown) (unknown) (no date) (unknown) (unknown) furosemide 40 mg tablet (Lasix) 120 mg PO DAILY 03/05/21 04/26/22 (units unknown) (unknown) (unknown) (no date) (unknown) (unknown) furosemide [Lasix] 4 0 mg Tablet (units unknown) (unknown) (unknown) (no date) (unknown) (unknown) gabapentin 300 mg capsule 300 mg PO BEDTIME #14 caps 06/12/22 (units unknown) (unknown) (unknown) (no date) (unknown) (unknown) gabapentin 300 mg capsule (units unknown) (unknown) (unknown) (no date) (unknown) (unknown) home with an albuter ol inhaler. She states she has already completed a course (units unknown) (unknown) (unknown) (no date) (unknown) (unknown) household members: family (units unknown) (unknown) (unknown) (no date) (unknown) (unknown) ketorolac [From Toradol] Allergy Verified 06/12/22 21:48 (units unknown) (unknown) (unknown) (no date) (unknown) (unknown) lidocaine 5 % adhesi ve patch,medicated (units unknown) (unknown) (unknown) (no date) (unknown) (unknown) lidocaine 5 % topica l patch 1 patch topical PRN PRN Pain 04/26/22 04/26/22 (units unknown) (unknown) (unknown) (no date) (unknown) (unknown) lightheaded. She has tried to use the nebulizer and also an inhaler with a (units unknown) (unknown) (unknown) (no date) (unknown) (unknown) lisinopril 10 mg Tablet (units unknown) (unknown) (unknown) (no date) (unknown) (unknown) lisinopril 10 mg tablet 10 mg PO DAILY 03/05/21 04/26/22 (units unknown) (unknown) (unknown) (no date) (unknown) (unknown) metformin 500 mg Tablet (units unknown) (unknown) (unknown) (no date) (unknown) (unknown) metformin 500 mg tablet 500 mg PO BID PRN Hyperglycemia 03/05/21 04/26/22 (units unknown) (unknown) (unknown) (no date) (unknown) (unknown) methylprednisolone 4 mg tablets in See Rx Instructions PO .COMPLEX 06/12/22 (units unknown) (unknown) (unknown) (no date) (unknown) (unknown) methylprednisolone [Medrol (Galdino)] 4 mg tablets,dose pack (units unknown) (unknown) (unknown) (no date) (unknown) (unknown) mg tablet (Percocet) (units unknown) (unknown) (unknown) (no date) (unknown) (unknown) mg tablet 4-6) (units unknown) (unknown) (unknown) (no date) (unknown) (unknown) naproxen AdvReac Intermediate Joint Pain Verified 06/12/22 21:48 (units unknown) (unknown) (unknown) (no date) (unknown) (unknown) nystatin 100,000 unit/gram topical 1 applic topical BID #14 grams 04/27/22 (units unknown) (unknown) (unknown) (no date) (unknown) (unknown) nystatin [Nystop] 100,000 unit/gram Powder (units unknown) (unknown) (unknown) (no date) (unknown) (unknown) of doxycycline and steroids without any improvement of symptoms. She had a (units unknown) (unknown) (unknown) (no date) (unknown) (unknown) orally per package directions (units unknown) (unknown) (unknown) (no date) (unknown) (unknown) oxycodone-acetaminop he n 10 mg-325 1 tab PO Q3H PRN Pain (Scale Score 04/26/22 (units unknown) (unknown) (unknown) (no date) (unknown) (unknown) oxycodone-acetaminop he n 10-325 mg tablet (units unknown) (unknown) (unknown) (no date) (unknown) (unknown) oxycodone-acetaminop he n 5 mg-325 1 tab PO Q8H PRN pain #10 tabs 06/14/22 (units unknown) (unknown) (unknown) (no date) (unknown) (unknown) oxycodone-acetaminop he n [Percocet] 5-325 mg tablet (units unknown) (unknown) (unknown) (no date) (unknown) (unknown) pantoprazole 40 mg tablet,delayed 40 mg PO QAM PRN Acid Reflux 04/26/22 04/26/22 (units unknown) (unknown) (unknown) (no date) (unknown) (unknown) pantoprazole 40 mg tablet,delayed release (DR/EC) (units unknown) (unknown) (unknown) (no date) (unknown) (unknown) powder (Nystop) (units unknown) (unknown) (unknown) (no date) (unknown) (unknown) pseudoephedrine AdvReac Intermediate Joint Pain Verified 06/12/22 21:48 (units unknown) (unknown) (unknown) (no date) (unknown) (unknown) rabeprazole 5 mg capsule,delayed 40 mg PO QAM 03/05/21 04/26/22 (units unknown) (unknown) (unknown) (no date) (unknown) (unknown) release 24 hr (Xanax XR) (units unknown) (unknown) (unknown) (no date) (unknown) (unknown) release sprinkle (AcipHex Sprinkle) (units unknown) (unknown) (unknown) (no date) (unknown) (unknown) release (units unknown) (unknown) (unknown) (no date) (unknown) (unknown) sertraline 25 mg tablet (Zoloft) 100 mg PO BID 03/05/21 04/26/22 (units unknown) (unknown) (unknown) (no date) (unknown) (unknown) sertraline [Zoloft] 25 mg Tablet (units unknown) (unknown) (unknown) (no date) (unknown) (unknown) spacer. (units unknown) (unknown) (unknown) (no date) (unknown) (unknown) syncopal episode earlier today. Is having chest discomfort with the cough. No (units unknown) (unknown) (unknown) (no date) (unknown) (unknown) tiotropium bromide 1 8 mcg capsule 1 cap inhalation DAILY 03/05/21 04/26/22 (units unknown) (unknown) (unknown) (no date) (unknown) (unknown) tobacco type: cigarettes (units unknown) (unknown) (unknown) (no date) (unknown) (unknown) valacyclovir 1 gram tablet 1 mg PO QAM 04/26/22 04/26/22 (units unknown) (unknown) (unknown) (no date) (unknown) (unknown) valacyclovir 1 gram tablet (units unknown) (unknown) (unknown) (no date) (unknown) (unknown) with HandiHaler) (units unknown) (unknown) (unknown) (no date) (unknown) (unknown) with inhalation shadia ce (Spiriva (units unknown) (unknown) (unknown) (no date) (unknown) (unknown) yesterday. Was diagnosed with a cough and mild asthma exacerbation. Was sent (units unknown) (unknown) Result panel 189 (unknown) (no date) (unknown) (unknown) (no value) (units unknown) (unknown) (unknown) (no date) (unknown) (unknown) (Scale Score 4-6) (units unknown) (unknown) (unknown) (no date) (unknown) (unknown) [id number] (units unknown) (unknown) (unknown) (no date) (unknown) (unknown) 02/18/23 13:20 (units unknown) (unknown) (unknown) (no date) (unknown) (unknown) 02/18/23 13:26 (units unknown) (unknown) (unknown) (no date) (unknown) (unknown) 02/18/23 13:40 (units unknown) (unknown) (unknown) (no date) (unknown) (unknown) 02/18/23 (units unknown) (unknown) (unknown) (no date) (unknown) (unknown) 04/26/22 (units unknown) (unknown) (unknown) (no date) (unknown) (unknown) 1 applic topical BID Qty: 14 0RF (units unknown) (unknown) (unknown) (no date) (unknown) (unknown) 1 cap INHALATION DAILY (units unknown) (unknown) (unknown) (no date) (unknown) (unknown) 1 mg PO DAILY (units unknown) (unknown) (unknown) (no date) (unknown) (unknown) 1 mg PO QAM (units unknown) (unknown) (unknown) (no date) (unknown) (unknown) 1 patch topical PRN PRN (Reason: Pain (Scale Score 4-6)) (units unknown) (unknown) (unknown) (no date) (unknown) (unknown) 1 tab PO Q3H PRN (Reason: Pain (Scale Score 4-6)) (units unknown) (unknown) (unknown) (no date) (unknown) (unknown) 1 tab PO Q8H PRN (Reason: pain) Qty: 10 0RF (units unknown) (unknown) (unknown) (no date) (unknown) (unknown) 10 mg PO DAILY (units unknown) (unknown) (unknown) (no date) (unknown) (unknown) 100 mg PO BID (units unknown) (unknown) (unknown) (no date) (unknown) (unknown) 120 mg PO DAILY (units unknown) (unknown) (unknown) (no date) (unknown) (unknown) 13:14 02/18/23 (units unknown) (unknown) (unknown) (no date) (unknown) (unknown) 13:36 (units unknown) (unknown) (unknown) (no date) (unknown) (unknown) 2 puff INHALATION Q4-6H PRN (Reason: Shortness Of Breath) (units unknown) (unknown) (unknown) (no date) (unknown) (unknown) 200 mg PO DAILY Qty: 7 0RF (units unknown) (unknown) (unknown) (no date) (unknown) (unknown) 300 mg PO BEDTIME Qt y: 14 0RF (units unknown) (unknown) (unknown) (no date) (unknown) (unknown) 40 mg PO QAM PRN (Reason: Acid Reflux) (units unknown) (unknown) (unknown) (no date) (unknown) (unknown) 40 mg PO QAM (units unknown) (unknown) (unknown) (no date) (unknown) (unknown) 500 mg PO BID PRN (Reason: Hyperglycemia) (units unknown) (unknown) (unknown) (no date) (unknown) (unknown) ? (units unknown) (unknown) (unknown) (no date) (unknown) (unknown) AcipHex Sprinkle 5 m g Capsule, Delayed Rel Sprinkle (units unknown) (unknown) (unknown) (no date) (unknown) (unknown) Age/Sex: 53 / F (units unknown) (unknown) (unknown) (no date) (unknown) (unknown) Albuterol/Ipratropiu m (Albuterol/Ipratropium 3 Ml Ampul) 3 ml INH NOW ONE (units unknown) (unknown) (unknown) (no date) (unknown) (unknown) Allergies (units unknown) (unknown) (unknown) (no date) (unknown) (unknown) Allergy/AdvReac Type Severity Reaction Status Date / Time (units unknown) (unknown) (unknown) (no date) (unknown) (unknown) Antibiotics) (units unknown) (unknown) (unknown) (no date) (unknown) (unknown) Asthma (units unknown) (unknown) (unknown) (no date) (unknown) (unknown) Attestation: I personally reviewed and interpreted this ECG as follows: (units unknown) (unknown) (unknown) (no date) (unknown) (unknown) Auscultation: rhonch i and wheezes (units unknown) (unknown) (unknown) (no date) (unknown) (unknown) Blood Pressure 107/5 8 L 02/18/23 13:14 (units unknown) (unknown) (unknown) (no date) (unknown) (unknown) Blood Pressure 107/5 8 L (units unknown) (unknown) (unknown) (no date) (unknown) (unknown) Bones and chest wall :? No suspicious bony lesions.? Overlying soft tissues (units unknown) (unknown) (unknown) (no date) (unknown) (unknown) Breathing (units unknown) (unknown) (unknown) (no date) (unknown) (unknown) COMPARISON:? None. (units unknown) (unknown) (unknown) (no date) (unknown) (unknown) Cardio (units unknown) (unknown) (unknown) (no date) (unknown) (unknown) Chest x-ray: (units unknown) (unknown) (unknown) (no date) (unknown) (unknown) Chest (units unknown) (unknown) (unknown) (no date) (unknown) (unknown) Chest: No crepitus (units unknown) (unknown) (unknown) (no date) (unknown) (unknown) Chief complaint: Shortness of Breath/Dyspnea (units unknown) (unknown) (unknown) (no date) (unknown) (unknown) Chronic anemia (units unknown) (unknown) (unknown) (no date) (unknown) (unknown) Complete Blood Count AUTO DIFF Stat (units unknown) (unknown) (unknown) (no date) (unknown) (unknown) Comprehensive Metabolic Panel Stat (units unknown) (unknown) (unknown) (no date) (unknown) (unknown) Const (units unknown) (unknown) (unknown) (no date) (unknown) (unknown) Course (units unknown) (unknown) (unknown) (no date) (unknown) (unknown) : 1970 Acct:[id number] (units unknown) (unknown) (unknown) (no date) (unknown) (unknown) Date of Service: 02/18/23 (units unknown) (unknown) (unknown) (no date) (unknown) (unknown) Departure (units unknown) (unknown) (unknown) (no date) (unknown) (unknown) Diabetes mellitus, type 2 (units unknown) (unknown) (unknown) (no date) (unknown) (unknown) Discharge Plan (units unknown) (unknown) (unknown) (no date) (unknown) (unknown) Discontinued Medications (units unknown) (unknown) (unknown) (no date) (unknown) (unknown) Nikolai Gray MD [Primary Care Provider] (units unknown) (unknown) (unknown) (no date) (unknown) (unknown) ECG Data (units unknown) (unknown) (unknown) (no date) (unknown) (unknown) ED Orders (units unknown) (unknown) (unknown) (no date) (unknown) (unknown) EKG-12 Lead Stat (units unknown) (unknown) (unknown) (no date) (unknown) (unknown) ER Physician: Bruce Levy D.O. (units unknown) (unknown) (unknown) (no date) (unknown) (unknown) Effort + Inspection: normal respiratory effort and cough (units unknown) (unknown) (unknown) (no date) (unknown) (unknown) Emergency Report (units unknown) (unknown) (unknown) (no date) (unknown) (unknown) Exam (units unknown) (unknown) (unknown) (no date) (unknown) (unknown) Extrem (units unknown) (unknown) (unknown) (no date) (unknown) (unknown) FINDINGS:? (units unknown) (unknown) (unknown) (no date) (unknown) (unknown) Fibromyalgia (units unknown) (unknown) (unknown) (no date) (unknown) (unknown) Fraction of Inspired Oxygen 21 (units unknown) (unknown) (unknown) (no date) (unknown) (unknown) GI (units unknown) (unknown) (unknown) (no date) (unknown) (unknown) General (units unknown) (unknown) (unknown) (no date) (unknown) (unknown) General: cooperative and comfortable (units unknown) (unknown) (unknown) (no date) (unknown) (unknown) General: no rashes o r lesions noted (units unknown) (unknown) (unknown) (no date) (unknown) (unknown) General: normal to inspection and capillary refill normal (units unknown) (unknown) (unknown) (no date) (unknown) (unknown) General: patient alert, patient awake and moves all extremities (units unknown) (unknown) (unknown) (no date) (unknown) (unknown) HENMT (units unknown) (unknown) (unknown) (no date) (unknown) (unknown) HPI - General Adult (units unknown) (unknown) (unknown) (no date) (unknown) (unknown) HPI narrative: (units unknown) (unknown) (unknown) (no date) (unknown) (unknown) Head: normal to inspection and normocephalic (units unknown) (unknown) (unknown) (no date) (unknown) (unknown) History of Present Illness (units unknown) (unknown) (unknown) (no date) (unknown) (unknown) History of arthrosco py of right shoulder (03/08/21) (units unknown) (unknown) (unknown) (no date) (unknown) (unknown) History of carpal tunnel release (units unknown) (unknown) (unknown) (no date) (unknown) (unknown) Home Medications (units unknown) (unknown) (unknown) (no date) (unknown) (unknown) Hx of abdominal surgery (units unknown) (unknown) (unknown) (no date) (unknown) (unknown) Hx of arthroscopic knee surgery (units unknown) (unknown) (unknown) (no date) (unknown) (unknown) Hx of cholecystectomy (units unknown) (unknown) (unknown) (no date) (unknown) (unknown) Hx of foot surgery (units unknown) (unknown) (unknown) (no date) (unknown) (unknown) Hx of lumbosacral spine surgery (units unknown) (unknown) (unknown) (no date) (unknown) (unknown) IMPRESSION:? No acut e pulmonary process. (units unknown) (unknown) (unknown) (no date) (unknown) (unknown) INDICATIONS:? Shortness of breath (units unknown) (unknown) (unknown) (no date) (unknown) (unknown) Imaging Data (units unknown) (unknown) (unknown) (no date) (unknown) (unknown) Initial Vital Signs (units unknown) (unknown) (unknown) (no date) (unknown) (unknown) Initial Vital Signs: (units unknown) (unknown) (unknown) (no date) (unknown) (unknown) Inspection: normal t o inspection (units unknown) (unknown) (unknown) (no date) (unknown) (unknown) Interpretation: (units unknown) (unknown) (unknown) (no date) (unknown) (unknown) [address] [address] (units unknown) (unknown) (unknown) (no date) (unknown) (unknown) Lab Data (units unknown) (unknown) (unknown) (no date) (unknown) (unknown) Last Admin: 02/18/23 13:35 Dose: 3 ml (units unknown) (unknown) (unknown) (no date) (unknown) (unknown) Last Admin: 02/18/23 13:43 Dose: 125 mg (units unknown) (unknown) (unknown) (no date) (unknown) (unknown) Limitations: no limitations (units unknown) (unknown) (unknown) (no date) (unknown) (unknown) Lungs and pleura:? Lungs are clear.? No pleural effusions or pneumothorax.? (units unknown) (unknown) (unknown) (no date) (unknown) (unknown) Lupus (units unknown) (unknown) (unknown) (no date) (unknown) (unknown) Measure peak expiratory flow ONCE (units unknown) (unknown) (unknown) (no date) (unknown) (unknown) Mediastinum:? Mediastinal contours appear normal.? Heart size is normal.? 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, non-alcoholic (units unknown) (unknown) (unknown) (no date) (unknown) (unknown) Mode of arrival: EMS (units unknown) (unknown) (unknown) (no date) (unknown) (unknown) NT-proBNP (BNP-Adult 18+) Stat (units unknown) (unknown) (unknown) (no date) (unknown) (unknown) Neuro (units unknown) (unknown) (unknown) (no date) (unknown) (unknown) No Action (units unknown) (unknown) (unknown) (no date) (unknown) (unknown) No ST T wave changes (units unknown) (unknown) (unknown) (no date) (unknown) (unknown) Normal QRS (units unknown) (unknown) (unknown) (no date) (unknown) (unknown) Obesity, morbid, BMI 50 or higher (units unknown) (unknown) (unknown) (no date) (unknown) (unknown) Ordered: (units unknown) (unknown) (unknown) (no date) (unknown) (unknown) Orders (units unknown) (unknown) (unknown) (no date) (unknown) (unknown) Osteoarthritis (units unknown) (unknown) (unknown) (no date) (unknown) (unknown) Oxygen Delivery Meth od Room Air 02/18/23 13:14 (units unknown) (unknown) (unknown) (no date) (unknown) (unknown) Oxygen Delivery Meth od Room Air Room Air (units unknown) (unknown) (unknown) (no date) (unknown) (unknown) Oxygen Flow Rate 0 (units unknown) (unknown) (unknown) (no date) (unknown) (unknown) PROCEDURE:? XR CHEST 1V (units unknown) (unknown) (unknown) (no date) (unknown) (unknown) Pain (units unknown) (unknown) (unknown) (no date) (unknown) (unknown) Patient Comments: (units unknown) (unknown) (unknown) (no date) (unknown) (unknown) Patient History (units unknown) (unknown) (unknown) (no date) (unknown) (unknown) Patient is a 53-year-old female. History of asthma. Is here for evaluation of (units unknown) (unknown) (unknown) (no date) (unknown) (unknown) Patient: Anat Ramon MR#: [id number] (units unknown) (unknown) (unknown) (no date) (unknown) (unknown) [place] Allergy Severe Difficulty Verified 06/12/22 21:48 (units unknown) (unknown) (unknown) (no date) (unknown) (unknown) Prescriptions: (units unknown) (unknown) (unknown) (no date) (unknown) (unknown) Previous Rx's (units unknown) (unknown) (unknown) (no date) (unknown) (unknown) Psoriatic arthritis (units unknown) (unknown) (unknown) (no date) (unknown) (unknown) Pulse Oximetry 98 02/18/23 13:14 (units unknown) (unknown) (unknown) (no date) (unknown) (unknown) Pulse Oximetry 98 96 (units unknown) (unknown) (unknown) (no date) (unknown) (unknown) Pulse Rate 97 H 02/18/23 13:14 (units unknown) (unknown) (unknown) (no date) (unknown) (unknown) Pulse Rate 97 H 86 (units unknown) (unknown) (unknown) (no date) (unknown) (unknown) ROS Unobtainable: Al l systems reviewed + are unremarkable except as noted in HPI (units unknown) (unknown) (unknown) (no date) (unknown) (unknown) RT Consult Eval and Treat NOW (units unknown) (unknown) (unknown) (no date) (unknown) (unknown) Radiologist's Impression: (units unknown) (unknown) (unknown) (no date) (unknown) (unknown) Rate: regular rate (units unknown) (unknown) (unknown) (no date) (unknown) (unknown) Referrals: (units unknown) (unknown) (unknown) (no date) (unknown) (unknown) Related Data (units unknown) (unknown) (unknown) (no date) (unknown) (unknown) Resp (units unknown) (unknown) (unknown) (no date) (unknown) (unknown) Respiratory Panel (Film Array) Stat (units unknown) (unknown) (unknown) (no date) (unknown) (unknown) Respiratory Rate 24 02/18/23 13:14 (units unknown) (unknown) (unknown) (no date) (unknown) (unknown) Respiratory Rate 24 22 (units unknown) (unknown) (unknown) (no date) (unknown) (unknown) Review of Systems (units unknown) (unknown) (unknown) (no date) (unknown) (unknown) Rexulti 2 mg Tablet (units unknown) (unknown) (unknown) (no date) (unknown) (unknown) Rhythm: regular rhythm (units unknown) (unknown) (unknown) (no date) (unknown) (unknown) Rx Instructions: (units unknown) (unknown) (unknown) (no date) (unknown) (unknown) See Rx Instructions .ROUTE .COMPLEX Qty: 21 0RF (units unknown) (unknown) (unknown) (no date) (unknown) (unknown) Signed By: (units unknown) (unknown) (unknown) (no date) (unknown) (unknown) Sinus rhythm (units unknown) (unknown) (unknown) (no date) (unknown) (unknown) Skin (units unknown) (unknown) (unknown) (no date) (unknown) (unknown) Smoking Status: Current every day smoker (units unknown) (unknown) (unknown) (no date) (unknown) (unknown) Social History (units unknown) (unknown) (unknown) (no date) (unknown) (unknown) Source: patient and EMS (units unknown) (unknown) (unknown) (no date) (unknown) (unknown) Spiriva with HandiHaler 18 mcg Capsule, W/Inhalation Device (units unknown) (unknown) (unknown) (no date) (unknown) (unknown) Stated complaint: cough/congestion (units unknown) (unknown) (unknown) (no date) (unknown) (unknown) Stop: 02/18/23 13:27 (units unknown) (unknown) (unknown) (no date) (unknown) (unknown) Substance Use Type: does not use (units unknown) (unknown) (unknown) (no date) (unknown) (unknown) Sulfa (Sulfonamide AdvReac Intermediate Joint Pain Verified 06/12/22 21:48 (units unknown) (unknown) (unknown) (no date) (unknown) (unknown) Surgical History (units unknown) (unknown) (unknown) (no date) (unknown) (unknown) Surgical changes and devices:? None.? (units unknown) (unknown) (unknown) (no date) (unknown) (unknown) TABLETS . (units unknown) (unknown) (unknown) (no date) (unknown) (unknown) TAKE 1 TABLET BY KELSI TH DAILY (units unknown) (unknown) (unknown) (no date) (unknown) (unknown) TAKE 1 TABLET BY KELSI TH EVERY 4 TO 6 HOURS NEEDED . MAXIMUM DAILY DOSE IS 5 (units unknown) (unknown) (unknown) (no date) (unknown) (unknown) TAKE 1 TABLET BY KELSI TH EVERY DAY (units unknown) (unknown) (unknown) (no date) (unknown) (unknown) TECHNIQUE:? One view of the chest was acquired.? (units unknown) (unknown) (unknown) (no date) (unknown) (unknown) Temperature 99.3 F 02/18/23 13:14 (units unknown) (unknown) (unknown) (no date) (unknown) (unknown) Temperature 99.3 F (units unknown) (unknown) (unknown) (no date) (unknown) (unknown) Time Seen by Provide r: 02/18/23 13:19 (units unknown) (unknown) (unknown) (no date) (unknown) (unknown) Troponin + CK Cardia c Panel Stat (units unknown) (unknown) (unknown) (no date) (unknown) (unknown) Ventricular rate 85 (units unknown) (unknown) (unknown) (no date) (unknown) (unknown) Vital Signs - 8 hr (units unknown) (unknown) (unknown) (no date) (unknown) (unknown) Vital Signs (units unknown) (unknown) (unknown) (no date) (unknown) (unknown) Vital signs: (units unknown) (unknown) (unknown) (no date) (unknown) (unknown) XR chest 1V Stat (units unknown) (unknown) (unknown) (no date) (unknown) (unknown) [Embedded Image Not Available] (units unknown) (unknown) (unknown) (no date) (unknown) (unknown) a dose pack (Medrol (Galdino)) #21 ea (units unknown) (unknown) (unknown) (no date) (unknown) (unknown) aerosol inhaler Shortness Of Breath (units unknown) (unknown) (unknown) (no date) (unknown) (unknown) albuterol sulfate 90 mcg/actuation 2 puff inhalation Q4-6H PRN 03/05/21 04/26/22 (units unknown) (unknown) (unknown) (no date) (unknown) (unknown) albuterol sulfate 90 mcg/actuation Hfa Aerosol Inhaler (units unknown) (unknown) (unknown) (no date) (unknown) (unknown) alcohol intake frequency: other (units unknown) (unknown) (unknown) (no date) (unknown) (unknown) alcohol intake: current (units unknown) (unknown) (unknown) (no date) (unknown) (unknown) alprazolam 3 mg tablet,extended 1 mg PO DAILY 03/05/21 04/26/22 (units unknown) (unknown) (unknown) (no date) (unknown) (unknown) alprazolam [Xanax XR ] 3 mg Tablet Extended Release 24 Hr (units unknown) (unknown) (unknown) (no date) (unknown) (unknown) and below (units unknown) (unknown) (unknown) (no date) (unknown) (unknown) appear (units unknown) (unknown) (unknown) (no date) (unknown) (unknown) brexpiprazole 2 mg tablet (Rexulti) 1 mg PO DAILY 03/05/21 04/26/22 (units unknown) (unknown) (unknown) (no date) (unknown) (unknown) [place] Allergy Severe Difficulty Verified 06/12/22 21:48 (units unknown) (unknown) (unknown) (no date) (unknown) (unknown) cough and congestion for the past several weeks. She was at an outside facility (units unknown) (unknown) (unknown) (no date) (unknown) (unknown) dipyridamole AdvReac Intermediate Joint Pain Verified 06/12/22 21:48 (units unknown) (unknown) (unknown) (no date) (unknown) (unknown) eggshell membrane Allergy Intermediate Abdominal Uncoded 03/08/21 07:16 (units unknown) (unknown) (unknown) (no date) (unknown) (unknown) eucalyptus Allergy Severe Difficulty Verified 06/12/22 21:48 (units unknown) (unknown) (unknown) (no date) (unknown) (unknown) fevers. She states that using the albuterol at home causes her to become very (units unknown) (unknown) (unknown) (no date) (unknown) (unknown) fluconazole 200 mg tablet 200 mg PO DAILY #7 tabs 04/27/22 (units unknown) (unknown) (unknown) (no date) (unknown) (unknown) fluconazole 200 mg tablet (units unknown) (unknown) (unknown) (no date) (unknown) (unknown) furosemide 40 mg tablet (Lasix) 120 mg PO DAILY 03/05/21 04/26/22 (units unknown) (unknown) (unknown) (no date) (unknown) (unknown) furosemide [Lasix] 4 0 mg Tablet (units unknown) (unknown) (unknown) (no date) (unknown) (unknown) gabapentin 300 mg capsule 300 mg PO BEDTIME #14 caps 06/12/22 (units unknown) (unknown) (unknown) (no date) (unknown) (unknown) gabapentin 300 mg capsule (units unknown) (unknown) (unknown) (no date) (unknown) (unknown) home with an albuter ol inhaler. She states she has already completed a course (units unknown) (unknown) (unknown) (no date) (unknown) (unknown) household members: family (units unknown) (unknown) (unknown) (no date) (unknown) (unknown) ketorolac [From Toradol] Allergy Verified 06/12/22 21:48 (units unknown) (unknown) (unknown) (no date) (unknown) (unknown) lidocaine 5 % adhesi ve patch,medicated (units unknown) (unknown) (unknown) (no date) (unknown) (unknown) lidocaine 5 % topica l patch 1 patch topical PRN PRN Pain 04/26/22 04/26/22 (units unknown) (unknown) (unknown) (no date) (unknown) (unknown) lightheaded. She has tried to use the nebulizer and also an inhaler with a (units unknown) (unknown) (unknown) (no date) (unknown) (unknown) lisinopril 10 mg Tablet (units unknown) (unknown) (unknown) (no date) (unknown) (unknown) lisinopril 10 mg tablet 10 mg PO DAILY 03/05/21 04/26/22 (units unknown) (unknown) (unknown) (no date) (unknown) (unknown) metformin 500 mg Tablet (units unknown) (unknown) (unknown) (no date) (unknown) (unknown) metformin 500 mg tablet 500 mg PO BID PRN Hyperglycemia 03/05/21 04/26/22 (units unknown) (unknown) (unknown) (no date) (unknown) (unknown) methylprednisolone 4 mg tablets in See Rx Instructions PO .COMPLEX 06/12/22 (units unknown) (unknown) (unknown) (no date) (unknown) (unknown) methylprednisolone [Medrol (Galdino)] 4 mg tablets,dose pack (units unknown) (unknown) (unknown) (no date) (unknown) (unknown) mg tablet (Percocet) (units unknown) (unknown) (unknown) (no date) (unknown) (unknown) mg tablet 4-6) (units unknown) (unknown) (unknown) (no date) (unknown) (unknown) naproxen AdvReac Intermediate Joint Pain Verified 06/12/22 21:48 (units unknown) (unknown) (unknown) (no date) (unknown) (unknown) nystatin 100,000 unit/gram topical 1 applic topical BID #14 grams 04/27/22 (units unknown) (unknown) (unknown) (no date) (unknown) (unknown) nystatin [Nystop] 100,000 unit/gram Powder (units unknown) (unknown) (unknown) (no date) (unknown) (unknown) of doxycycline and steroids without any improvement of symptoms. She had a (units unknown) (unknown) (unknown) (no date) (unknown) (unknown) orally per package directions (units unknown) (unknown) (unknown) (no date) (unknown) (unknown) oxycodone-acetaminop he n 10 mg-325 1 tab PO Q3H PRN Pain (Scale Score 04/26/22 (units unknown) (unknown) (unknown) (no date) (unknown) (unknown) oxycodone-acetaminop he n 10-325 mg tablet (units unknown) (unknown) (unknown) (no date) (unknown) (unknown) oxycodone-acetaminop he n 5 mg-325 1 tab PO Q8H PRN pain #10 tabs 06/14/22 (units unknown) (unknown) (unknown) (no date) (unknown) (unknown) oxycodone-acetaminop he n [Percocet] 5-325 mg tablet (units unknown) (unknown) (unknown) (no date) (unknown) (unknown) pantoprazole 40 mg tablet,delayed 40 mg PO QAM PRN Acid Reflux 04/26/22 04/26/22 (units unknown) (unknown) (unknown) (no date) (unknown) (unknown) pantoprazole 40 mg tablet,delayed release (DR/EC) (units unknown) (unknown) (unknown) (no date) (unknown) (unknown) powder (Nystop) (units unknown) (unknown) (unknown) (no date) (unknown) (unknown) pseudoephedrine AdvReac Intermediate Joint Pain Verified 06/12/22 21:48 (units unknown) (unknown) (unknown) (no date) (unknown) (unknown) rabeprazole 5 mg capsule,delayed 40 mg PO QAM 03/05/21 04/26/22 (units unknown) (unknown) (unknown) (no date) (unknown) (unknown) release 24 hr (Xanax XR) (units unknown) (unknown) (unknown) (no date) (unknown) (unknown) release sprinkle (AcipHex Sprinkle) (units unknown) (unknown) (unknown) (no date) (unknown) (unknown) release (units unknown) (unknown) (unknown) (no date) (unknown) (unknown) sertraline 25 mg tablet (Zoloft) 100 mg PO BID 03/05/21 04/26/22 (units unknown) (unknown) (unknown) (no date) (unknown) (unknown) sertraline [Zoloft] 25 mg Tablet (units unknown) (unknown) (unknown) (no date) (unknown) (unknown) spacer. (units unknown) (unknown) (unknown) (no date) (unknown) (unknown) syncopal episode earlier today. Is having chest discomfort with the cough. No (units unknown) (unknown) (unknown) (no date) (unknown) (unknown) tiotropium bromide 1 8 mcg capsule 1 cap inhalation DAILY 03/05/21 04/26/22 (units unknown) (unknown) (unknown) (no date) (unknown) (unknown) tobacco type: cigarettes (units unknown) (unknown) (unknown) (no date) (unknown) (unknown) unremarkable.? (units unknown) (unknown) (unknown) (no date) (unknown) (unknown) valacyclovir 1 gram tablet 1 mg PO QAM 04/26/22 04/26/22 (units unknown) (unknown) (unknown) (no date) (unknown) (unknown) valacyclovir 1 gram tablet (units unknown) (unknown) (unknown) (no date) (unknown) (unknown) with HandiHaler) (units unknown) (unknown) (unknown) (no date) (unknown) (unknown) with inhalation shadia ce (Spiriva (units unknown) (unknown) (unknown) (no date) (unknown) (unknown) yesterday. Was diagnosed with a cough and mild asthma exacerbation. Was sent (units unknown) (unknown) Result panel 190 (unknown) (no date) (unknown) (unknown) 12.9 x10 3/ul (unknown) (unknown) (no date) (unknown) (unknown) 13.8 g/dl (unknown) (unknown) (no date) (unknown) (unknown) 14.7 % (unknown) (unknown) (no date) (unknown) (unknown) 291 x10 3/ul (unknown) (unknown) (no date) (unknown) (unknown) 32.9 pg (unknown) (unknown) (no date) (unknown) (unknown) 34.4 % (unknown) (unknown) (no date) (unknown) (unknown) 4.19 x10 6/ul (unknown) (unknown) (no date) (unknown) (unknown) 40.0 % (unknown) (unknown) (no date) (unknown) (unknown) 95.5 fl (unknown) Result panel 191 (unknown) (no date) (unknown) (unknown) > 60 ml/min (unknown) (unknown) (no date) (unknown) (unknown) > 60 ml/min (unknown) (unknown) (no date) (unknown) (unknown) 0.3 mg/dl (unknown) (unknown) (no date) (unknown) (unknown) 0.65 mg/dl (unknown) (unknown) (no date) (unknown) (unknown) 1.1 (units unknown) (unknown) (unknown) (no date) (unknown) (unknown) 109 u/l (unknown) (unknown) (no date) (unknown) (unknown) 109 u/l (unknown) (unknown) (no date) (unknown) (unknown) 133 u/l (unknown) (unknown) (no date) (unknown) (unknown) 135 mmol/l (unknown) (unknown) (no date) (unknown) (unknown) 135 mmol/l (unknown) (unknown) (no date) (unknown) (unknown) 136 mg/dl (unknown) (unknown) (no date) (unknown) (unknown) 136 mg/dl (unknown) (unknown) (no date) (unknown) (unknown) 18 iu/l (unknown) (unknown) (no date) (unknown) (unknown) 20 iu/l (unknown) (unknown) (no date) (unknown) (unknown) 29 mmol/l (unknown) (unknown) (no date) (unknown) (unknown) 3.1 mmol/l (unknown) (unknown) (no date) (unknown) (unknown) 3.3 g/dl (unknown) (unknown) (no date) (unknown) (unknown) 3.5 g/dl (unknown) (unknown) (no date) (unknown) (unknown) 6 mg/dl (unknown) (unknown) (no date) (unknown) (unknown) 6.8 g/dl (unknown) (unknown) (no date) (unknown) (unknown) 8.4 mg/dl (unknown) (unknown) (no date) (unknown) (unknown) 9.2 (units unknown) (unknown) (unknown) (no date) (unknown) (unknown) 97 mmol/l (unknown) Result panel 192 (unknown) (no date) (unknown) (unknown) 100 (units unknown) (unknown) (unknown) (no date) (unknown) (unknown) 12.9 x10 3/ul (unknown) (unknown) (no date) (unknown) (unknown) 13.8 g/dl (unknown) (unknown) (no date) (unknown) (unknown) 14.7 % (unknown) (unknown) (no date) (unknown) (unknown) 23.0 % (unknown) (unknown) (no date) (unknown) (unknown) 291 x10 3/ul (unknown) (unknown) (no date) (unknown) (unknown) 3.0 % (unknown) (unknown) (no date) (unknown) (unknown) 32.9 pg (unknown) (unknown) (no date) (unknown) (unknown) 34.4 % (unknown) (unknown) (no date) (unknown) (unknown) 4.19 x10 6/ul (unknown) (unknown) (no date) (unknown) (unknown) 40.0 % (unknown) (unknown) (no date) (unknown) (unknown) 6.0 % (unknown) (unknown) (no date) (unknown) (unknown) 68.0 % (unknown) (unknown) (no date) (unknown) (unknown) 8772 /ul (unknown) (unknown) (no date) (unknown) (unknown) 95.5 fl (unknown) (unknown) (no date) (unknown) (unknown) Normal Morphology (units unknown) (unknown) Result panel 193 (unknown) (no date) (unknown) (unknown) Detected (units unknown) (unknown) (unknown) (no date) (unknown) (unknown) Not Detected (units unknown) (unknown) (unknown) (no date) (unknown) (unknown) Not Detected (units unknown) (unknown) Result panel 194 (unknown) (no date) (unknown) (unknown) > 60 ml/min (unknown) (unknown) (no date) (unknown) (unknown) > 60 ml/min (unknown) (unknown) (no date) (unknown) (unknown) < 0.012 ng/ml (unknown) (unknown) (no date) (unknown) (unknown) < 0.012 ng/ml (unknown) (unknown) (no date) (unknown) (unknown) 0.3 mg/dl (unknown) (unknown) (no date) (unknown) (unknown) 0.65 mg/dl (unknown) (unknown) (no date) (unknown) (unknown) 1.1 (units unknown) (unknown) (unknown) (no date) (unknown) (unknown) 1.3 % (unknown) (unknown) (no date) (unknown) (unknown) 1.39 ng/ml (unknown) (unknown) (no date) (unknown) (unknown) 109 u/l (unknown) (unknown) (no date) (unknown) (unknown) 109 u/l (unknown) (unknown) (no date) (unknown) (unknown) 133 u/l (unknown) (unknown) (no date) (unknown) (unknown) 135 mmol/l (unknown) (unknown) (no date) (unknown) (unknown) 135 mmol/l (unknown) (unknown) (no date) (unknown) (unknown) 136 mg/dl (unknown) (unknown) (no date) (unknown) (unknown) 136 mg/dl (unknown) (unknown) (no date) (unknown) (unknown) 18 iu/l (unknown) (unknown) (no date) (unknown) (unknown) 20 iu/l (unknown) (unknown) (no date) (unknown) (unknown) 29 mmol/l (unknown) (unknown) (no date) (unknown) (unknown) 3.1 mmol/l (unknown) (unknown) (no date) (unknown) (unknown) 3.3 g/dl (unknown) (unknown) (no date) (unknown) (unknown) 3.5 g/dl (unknown) (unknown) (no date) (unknown) (unknown) 6 mg/dl (unknown) (unknown) (no date) (unknown) (unknown) 6.8 g/dl (unknown) (unknown) (no date) (unknown) (unknown) 79 pg/ml (unknown) (unknown) (no date) (unknown) (unknown) 79 pg/ml (unknown) (unknown) (no date) (unknown) (unknown) 8.4 mg/dl (unknown) (unknown) (no date) (unknown) (unknown) 9.2 (units unknown) (unknown) (unknown) (no date) (unknown) (unknown) 97 mmol/l (unknown) Result panel 195 (unknown) (no date) (unknown) (unknown) (no value) (units unknown) (unknown) (unknown) (no date) (unknown) (unknown) (Scale Score 4-6) (units unknown) (unknown) (unknown) (no date) (unknown) (unknown) [id number] (units unknown) (unknown) (unknown) (no date) (unknown) (unknown) 02/18/23 02/18/23 02/18/23 Range/Units (units unknown) (unknown) (unknown) (no date) (unknown) (unknown) 02/18/23 13:20 (units unknown) (unknown) (unknown) (no date) (unknown) (unknown) 02/18/23 13:26 (units unknown) (unknown) (unknown) (no date) (unknown) (unknown) 02/18/23 13:40 (units unknown) (unknown) (unknown) (no date) (unknown) (unknown) 02/18/23 (units unknown) (unknown) (unknown) (no date) (unknown) (unknown) 04/26/22 (units unknown) (unknown) (unknown) (no date) (unknown) (unknown) 1 applic topical BID Qty: 14 0RF (units unknown) (unknown) (unknown) (no date) (unknown) (unknown) 1 cap INHALATION DAILY (units unknown) (unknown) (unknown) (no date) (unknown) (unknown) 1 mg PO DAILY (units unknown) (unknown) (unknown) (no date) (unknown) (unknown) 1 mg PO QAM (units unknown) (unknown) (unknown) (no date) (unknown) (unknown) 1 patch topical PRN PRN (Reason: Pain (Scale Score 4-6)) (units unknown) (unknown) (unknown) (no date) (unknown) (unknown) 1 tab PO Q3H PRN (Reason: Pain (Scale Score 4-6)) (units unknown) (unknown) (unknown) (no date) (unknown) (unknown) 1 tab PO Q8H PRN (Reason: pain) Qty: 10 0RF (units unknown) (unknown) (unknown) (no date) (unknown) (unknown) 10 mg PO DAILY (units unknown) (unknown) (unknown) (no date) (unknown) (unknown) 100 mg PO BID (units unknown) (unknown) (unknown) (no date) (unknown) (unknown) 120 mg PO DAILY (units unknown) (unknown) (unknown) (no date) (unknown) (unknown) 13:13 (units unknown) (unknown) (unknown) (no date) (unknown) (unknown) 13:14 02/18/23 (units unknown) (unknown) (unknown) (no date) (unknown) (unknown) 13:15 (units unknown) (unknown) (unknown) (no date) (unknown) (unknown) 13:21 13:40 13:40 (units unknown) (unknown) (unknown) (no date) (unknown) (unknown) 13:26 02/18/23 (units unknown) (unknown) (unknown) (no date) (unknown) (unknown) 13:30 02/18/23 (units unknown) (unknown) (unknown) (no date) (unknown) (unknown) 13:30 (units unknown) (unknown) (unknown) (no date) (unknown) (unknown) 13:36 02/18/23 (units unknown) (unknown) (unknown) (no date) (unknown) (unknown) 13:45 02/18/23 (units unknown) (unknown) (unknown) (no date) (unknown) (unknown) 14:00 (units unknown) (unknown) (unknown) (no date) (unknown) (unknown) 2 puff INHALATION Q4-6H PRN (Reason: Shortness Of Breath) (units unknown) (unknown) (unknown) (no date) (unknown) (unknown) 200 mg PO DAILY Qty: 7 0RF (units unknown) (unknown) (unknown) (no date) (unknown) (unknown) 300 mg PO BEDTIME Qt y: 14 0RF (units unknown) (unknown) (unknown) (no date) (unknown) (unknown) 40 mg PO QAM PRN (Reason: Acid Reflux) (units unknown) (unknown) (unknown) (no date) (unknown) (unknown) 40 mg PO QAM (units unknown) (unknown) (unknown) (no date) (unknown) (unknown) 500 mg PO BID PRN (Reason: Hyperglycemia) (units unknown) (unknown) (unknown) (no date) (unknown) (unknown) ? (units unknown) (unknown) (unknown) (no date) (unknown) (unknown) ALT 18 (<35) IU/L (units unknown) (unknown) (unknown) (no date) (unknown) (unknown) AST 20 (14-36) IU/L (units unknown) (unknown) (unknown) (no date) (unknown) (unknown) AcipHex Sprinkle 5 m g Capsule, Delayed Rel Sprinkle (units unknown) (unknown) (unknown) (no date) (unknown) (unknown) Adenovirus (PCR) Not detected (Not Detect) (units unknown) (unknown) (unknown) (no date) (unknown) (unknown) Age/Sex: 53 / F (units unknown) (unknown) (unknown) (no date) (unknown) (unknown) Albumin 3.5 (3.5-5.0 ) g/dL (units unknown) (unknown) (unknown) (no date) (unknown) (unknown) Albumin/Globulin Rat io 1.1 (1.0-2.8) (units unknown) (unknown) (unknown) (no date) (unknown) (unknown) Albuterol/Ipratropiu m (Albuterol/Ipratropium 3 Ml Ampul) 3 ml INH NOW ONE (units unknown) (unknown) (unknown) (no date) (unknown) (unknown) Alkaline Phosphatase 133 H (38-126) U/L (units unknown) (unknown) (unknown) (no date) (unknown) (unknown) Allergies (units unknown) (unknown) (unknown) (no date) (unknown) (unknown) Allergy/AdvReac Type Severity Reaction Status Date / Time (units unknown) (unknown) (unknown) (no date) (unknown) (unknown) Antibiotics) (units unknown) (unknown) (unknown) (no date) (unknown) (unknown) Asthma (units unknown) (unknown) (unknown) (no date) (unknown) (unknown) Attestation: I personally reviewed and interpreted this ECG as follows: (units unknown) (unknown) (unknown) (no date) (unknown) (unknown) Auscultation: rhonch i and wheezes (units unknown) (unknown) (unknown) (no date) (unknown) (unknown) B. pertussis DNA (PC R) Not detected (Not Detecte) (units unknown) (unknown) (unknown) (no date) (unknown) (unknown) B.parapertussis DNA PCR Not detected (Not Detecte) (units unknown) (unknown) (unknown) (no date) (unknown) (unknown) BUN 6 L (7-17) mg/dL (units unknown) (unknown) (unknown) (no date) (unknown) (unknown) BUN/Creatinine Ratio 9.2 (6-22) (units unknown) (unknown) (unknown) (no date) (unknown) (unknown) Baso # (Auto) Not Reportable (units unknown) (unknown) (unknown) (no date) (unknown) (unknown) Baso % (Auto) Not Reportable (units unknown) (unknown) (unknown) (no date) (unknown) (unknown) Blood Pressure 107/5 8 L (units unknown) (unknown) (unknown) (no date) (unknown) (unknown) Blood Pressure 107/6 1 105/58 L (units unknown) (unknown) (unknown) (no date) (unknown) (unknown) Blood Pressure 113/60 (units unknown) (unknown) (unknown) (no date) (unknown) (unknown) Blood Pressure (units unknown) (unknown) (unknown) (no date) (unknown) (unknown) Bones and chest wall :? No suspicious bony lesions.? Overlying soft tissues (units unknown) (unknown) (unknown) (no date) (unknown) (unknown) Breathing (units unknown) (unknown) (unknown) (no date) (unknown) (unknown) CK-MB (CK-2) 1.39 (<2.37) ng/mL (units unknown) (unknown) (unknown) (no date) (unknown) (unknown) CK-MB (CK-2) Rel Ind ex 1.3 L (1.5-5.0) % (units unknown) (unknown) (unknown) (no date) (unknown) (unknown) COMPARISON:? None. (units unknown) (unknown) (unknown) (no date) (unknown) (unknown) Calcium 8.4 (8.4-10. 2) mg/dL (units unknown) (unknown) (unknown) (no date) (unknown) (unknown) Carbon Dioxide 29 (22-32) mmol/L (units unknown) (unknown) (unknown) (no date) (unknown) (unknown) Cardio (units unknown) (unknown) (unknown) (no date) (unknown) (unknown) Chest x-ray: (units unknown) (unknown) (unknown) (no date) (unknown) (unknown) Chest (units unknown) (unknown) (unknown) (no date) (unknown) (unknown) Chest: No crepitus (units unknown) (unknown) (unknown) (no date) (unknown) (unknown) Chief complaint: Shortness of Breath/Dyspnea (units unknown) (unknown) (unknown) (no date) (unknown) (unknown) Chlamy pneumoniae PC R Not detected (Not Detect) (units unknown) (unknown) (unknown) (no date) (unknown) (unknown) Chloride 97 L (98-10 7) mmol/L (units unknown) (unknown) (unknown) (no date) (unknown) (unknown) Chronic anemia (units unknown) (unknown) (unknown) (no date) (unknown) (unknown) Complete Blood Count AUTO DIFF Stat (units unknown) (unknown) (unknown) (no date) (unknown) (unknown) Comprehensive Metabolic Panel Stat (units unknown) (unknown) (unknown) (no date) (unknown) (unknown) Const (units unknown) (unknown) (unknown) (no date) (unknown) (unknown) Coronavirus 229E (PC R) Not detected (Not Detect) (units unknown) (unknown) (unknown) (no date) (unknown) (unknown) Coronavirus HKU1 (PC R) Not detected (Not Detect) (units unknown) (unknown) (unknown) (no date) (unknown) (unknown) Coronavirus NL63 (PC R) Not detected (Not Detect) (units unknown) (unknown) (unknown) (no date) (unknown) (unknown) Coronavirus OC43 (PC R) Detected H (Not Detect) (units unknown) (unknown) (unknown) (no date) (unknown) (unknown) Course (units unknown) (unknown) (unknown) (no date) (unknown) (unknown) Creatinine 0.65 (0.52-1.04) mg/dL (units unknown) (unknown) (unknown) (no date) (unknown) (unknown) : 1970 Acct:[id number] (units unknown) (unknown) (unknown) (no date) (unknown) (unknown) Date of Service: 02/18/23 (units unknown) (unknown) (unknown) (no date) (unknown) (unknown) Departure (units unknown) (unknown) (unknown) (no date) (unknown) (unknown) Diabetes mellitus, type 2 (units unknown) (unknown) (unknown) (no date) (unknown) (unknown) Discharge Plan (units unknown) (unknown) (unknown) (no date) (unknown) (unknown) Discontinued Medications (units unknown) (unknown) (unknown) (no date) (unknown) (unknown) Nikolai Gray MD [Primary Care Provider] (units unknown) (unknown) (unknown) (no date) (unknown) (unknown) ECG Data (units unknown) (unknown) (unknown) (no date) (unknown) (unknown) ED Orders (units unknown) (unknown) (unknown) (no date) (unknown) (unknown) EKG-12 Lead Stat (units unknown) (unknown) (unknown) (no date) (unknown) (unknown) ER Physician: Bruce Levy D.O. (units unknown) (unknown) (unknown) (no date) (unknown) (unknown) Effort + Inspection: normal respiratory effort and cough (units unknown) (unknown) (unknown) (no date) (unknown) (unknown) Emergency Report (units unknown) (unknown) (unknown) (no date) (unknown) (unknown) Entero/Rhino (PCR) N ot detected (Not Detect) (units unknown) (unknown) (unknown) (no date) (unknown) (unknown) Eos % (Auto) Not Reportable (units unknown) (unknown) (unknown) (no date) (unknown) (unknown) Eosinophils % ([place]) 3.0 (2-4) % (units unknown) (unknown) (unknown) (no date) (unknown) (unknown) Estimated GFR > 60 (>60) mL/min (units unknown) (unknown) (unknown) (no date) (unknown) (unknown) Exam (units unknown) (unknown) (unknown) (no date) (unknown) (unknown) Extrem (units unknown) (unknown) (unknown) (no date) (unknown) (unknown) FINDINGS:? (units unknown) (unknown) (unknown) (no date) (unknown) (unknown) Fibromyalgia (units unknown) (unknown) (unknown) (no date) (unknown) (unknown) Fraction of Inspired Oxygen 21 (units unknown) (unknown) (unknown) (no date) (unknown) (unknown) Fraction of Inspired Oxygen (units unknown) (unknown) (unknown) (no date) (unknown) (unknown) GI (units unknown) (unknown) (unknown) (no date) (unknown) (unknown) General (units unknown) (unknown) (unknown) (no date) (unknown) (unknown) General: cooperative and comfortable (units unknown) (unknown) (unknown) (no date) (unknown) (unknown) General: no rashes o r lesions noted (units unknown) (unknown) (unknown) (no date) (unknown) (unknown) General: normal to inspection and capillary refill normal (units unknown) (unknown) (unknown) (no date) (unknown) (unknown) General: patient alert, patient awake and moves all extremities (units unknown) (unknown) (unknown) (no date) (unknown) (unknown) Globulin 3.3 (1.7-4. 1) g/dL (units unknown) (unknown) (unknown) (no date) (unknown) (unknown) Glucose 136 H (70-10 0) mg/dL (units unknown) (unknown) (unknown) (no date) (unknown) (unknown) HENMT (units unknown) (unknown) (unknown) (no date) (unknown) (unknown) HPI - General Adult (units unknown) (unknown) (unknown) (no date) (unknown) (unknown) HPI narrative: (units unknown) (unknown) (unknown) (no date) (unknown) (unknown) Hct 40.0 (36-46) % (units unknown) (unknown) (unknown) (no date) (unknown) (unknown) Head: normal to inspection and normocephalic (units unknown) (unknown) (unknown) (no date) (unknown) (unknown) Hgb 13.8 (12.0-16.0) g/dL (units unknown) (unknown) (unknown) (no date) (unknown) (unknown) History of Present Illness (units unknown) (unknown) (unknown) (no date) (unknown) (unknown) History of arthrosco py of right shoulder (03/08/21) (units unknown) (unknown) (unknown) (no date) (unknown) (unknown) History of carpal tunnel release (units unknown) (unknown) (unknown) (no date) (unknown) (unknown) Home Medications (units unknown) (unknown) (unknown) (no date) (unknown) (unknown) Human Metapneumovir PCR Not detected (Not Detect) (units unknown) (unknown) (unknown) (no date) (unknown) (unknown) Hx of abdominal surgery (units unknown) (unknown) (unknown) (no date) (unknown) (unknown) Hx of arthroscopic knee surgery (units unknown) (unknown) (unknown) (no date) (unknown) (unknown) Hx of cholecystectomy (units unknown) (unknown) (unknown) (no date) (unknown) (unknown) Hx of foot surgery (units unknown) (unknown) (unknown) (no date) (unknown) (unknown) Hx of lumbosacral spine surgery (units unknown) (unknown) (unknown) (no date) (unknown) (unknown) IMPRESSION:? No acut e pulmonary process. (units unknown) (unknown) (unknown) (no date) (unknown) (unknown) INDICATIONS:? Shortness of breath (units unknown) (unknown) (unknown) (no date) (unknown) (unknown) Imaging Data (units unknown) (unknown) (unknown) (no date) (unknown) (unknown) Influenza Type A (PC R) Not detected (Not Detect) (units unknown) (unknown) (unknown) (no date) (unknown) (unknown) Influenza Type B (PC R) Not detected (Not Detect) (units unknown) (unknown) (unknown) (no date) (unknown) (unknown) Initial Vital Signs (units unknown) (unknown) (unknown) (no date) (unknown) (unknown) Initial Vital Signs: (units unknown) (unknown) (unknown) (no date) (unknown) (unknown) Inspection: normal t o inspection (units unknown) (unknown) (unknown) (no date) (unknown) (unknown) Interpretation: (units unknown) (unknown) (unknown) (no date) (unknown) (unknown) [address] [address] (units unknown) (unknown) (unknown) (no date) (unknown) (unknown) Lab Data (units unknown) (unknown) (unknown) (no date) (unknown) (unknown) Lab Results (units unknown) (unknown) (unknown) (no date) (unknown) (unknown) Lab results reviewed : Yes I reviewed the patient's lab results. (units unknown) (unknown) (unknown) (no date) (unknown) (unknown) Labs: (units unknown) (unknown) (unknown) (no date) (unknown) (unknown) Last Admin: 02/18/23 13:35 Dose: 3 ml (units unknown) (unknown) (unknown) (no date) (unknown) (unknown) Last Admin: 02/18/23 13:43 Dose: 125 mg (units unknown) (unknown) (unknown) (no date) (unknown) (unknown) Limitations: no limitations (units unknown) (unknown) (unknown) (no date) (unknown) (unknown) Lungs and pleura:? Lungs are clear.? No pleural effusions or pneumothorax.? (units unknown) (unknown) (unknown) (no date) (unknown) (unknown) Lupus (units unknown) (unknown) (unknown) (no date) (unknown) (unknown) Lymph # (Auto) Not Reportable (units unknown) (unknown) (unknown) (no date) (unknown) (unknown) Lymph % (Auto) Not Reportable (units unknown) (unknown) (unknown) (no date) (unknown) (unknown) Lymphocytes % ([place]) 23.0 L (25-45) % (units unknown) (unknown) (unknown) (no date) (unknown) (unknown) M. pneumoniae (PCR) Not detected (Not Detect) (units unknown) (unknown) (unknown) (no date) (unknown) (unknown) MCH 32.9 (26-34) PG (units unknown) (unknown) (unknown) (no date) (unknown) (unknown) MCHC 34.4 (30-36) % (units unknown) (unknown) (unknown) (no date) (unknown) (unknown) MCV 95.5 (80-100) fL (units unknown) (unknown) (unknown) (no date) (unknown) (unknown) Measure peak expiratory flow ONCE (units unknown) (unknown) (unknown) (no date) (unknown) (unknown) Mediastinum:? Mediastinal contours appear normal.? Heart size is normal.? (units unknown) (unknown) (unknown) (no date) (unknown) (unknown) Medical Decision Making (units unknown) (unknown) (unknown) (no date) (unknown) (unknown) Medical History (units unknown) (unknown) (unknown) (no date) (unknown) (unknown) Medical Records (units unknown) (unknown) (unknown) (no date) (unknown) (unknown) Medical records reviewed: Yes I reviewed the patient's medical records. 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, non-alcoholic (units unknown) (unknown) (unknown) (no date) (unknown) (unknown) Mode of arrival: EMS (units unknown) (unknown) (unknown) (no date) (unknown) (unknown) Real # (Auto) Not Reportable (units unknown) (unknown) (unknown) (no date) (unknown) (unknown) Real % (Auto) Not Reportable (units unknown) (unknown) (unknown) (no date) (unknown) (unknown) Monocytes % (Manual) 6.0 (2-11) % (units unknown) (unknown) (unknown) (no date) (unknown) (unknown) NT-Pro-B Natriuret P ep 79 (<125) pg/mL (units unknown) (unknown) (unknown) (no date) (unknown) (unknown) NT-proBNP (BNP-Adult 18+) Stat (units unknown) (unknown) (unknown) (no date) (unknown) (unknown) Neuro (units unknown) (unknown) (unknown) (no date) (unknown) (unknown) Neut % (Auto) Not Reportable (units unknown) (unknown) (unknown) (no date) (unknown) (unknown) Neutrophils # ([place]) 8772 H ([phone]) /uL (units unknown) (unknown) (unknown) (no date) (unknown) (unknown) No Action (units unknown) (unknown) (unknown) (no date) (unknown) (unknown) No ST T wave changes (units unknown) (unknown) (unknown) (no date) (unknown) (unknown) Normal QRS (units unknown) (unknown) (unknown) (no date) (unknown) (unknown) Obesity, morbid, BMI 50 or higher (units unknown) (unknown) (unknown) (no date) (unknown) (unknown) Ordered: (units unknown) (unknown) (unknown) (no date) (unknown) (unknown) Orders (units unknown) (unknown) (unknown) (no date) (unknown) (unknown) Osteoarthritis (units unknown) (unknown) (unknown) (no date) (unknown) (unknown) Oxygen Delivery Meth od Room Air Room Air (units unknown) (unknown) (unknown) (no date) (unknown) (unknown) Oxygen Delivery Meth od Room Air (units unknown) (unknown) (unknown) (no date) (unknown) (unknown) Oxygen Delivery Method (units unknown) (unknown) (unknown) (no date) (unknown) (unknown) Oxygen Flow Rate 0 (units unknown) (unknown) (unknown) (no date) (unknown) (unknown) Oxygen Flow Rate (units unknown) (unknown) (unknown) (no date) (unknown) (unknown) PROCEDURE:? XR CHEST 1V (units unknown) (unknown) (unknown) (no date) (unknown) (unknown) Pain (units unknown) (unknown) (unknown) (no date) (unknown) (unknown) Parainfluenza 1 (PCR ) Not detected (Not Detect) (units unknown) (unknown) (unknown) (no date) (unknown) (unknown) Parainfluenza 2 (PCR ) Detected H (Not Detect) (units unknown) (unknown) (unknown) (no date) (unknown) (unknown) Parainfluenza 3 (PCR ) Not detected (Not Detect) (units unknown) (unknown) (unknown) (no date) (unknown) (unknown) Parainfluenza 4 (PCR ) Not detected (Not Detect) (units unknown) (unknown) (unknown) (no date) (unknown) (unknown) Patient Comments: (units unknown) (unknown) (unknown) (no date) (unknown) (unknown) Patient History (units unknown) (unknown) (unknown) (no date) (unknown) (unknown) Patient is a 53-year-old female. History of asthma. Is here for evaluation of (units unknown) (unknown) (unknown) (no date) (unknown) (unknown) Patient: Anat Ramon MR#: [id number] (units unknown) (unknown) (unknown) (no date) (unknown) (unknown) [place] Allergy Severe Difficulty Verified 06/12/22 21:48 (units unknown) (unknown) (unknown) (no date) (unknown) (unknown) Plt Count 291 (150-400) X103/uL (units unknown) (unknown) (unknown) (no date) (unknown) (unknown) Potassium 3.1 L (3.4-5.1) mmol/L (units unknown) (unknown) (unknown) (no date) (unknown) (unknown) Prescriptions: (units unknown) (unknown) (unknown) (no date) (unknown) (unknown) Previous Rx's (units unknown) (unknown) (unknown) (no date) (unknown) (unknown) Procalcitonin Cancelled (units unknown) (unknown) (unknown) (no date) (unknown) (unknown) Psoriatic arthritis (units unknown) (unknown) (unknown) (no date) (unknown) (unknown) Pulse Oximetry 94 (units unknown) (unknown) (unknown) (no date) (unknown) (unknown) Pulse Oximetry 97 97 (units unknown) (unknown) (unknown) (no date) (unknown) (unknown) Pulse Oximetry 97 98 (units unknown) (unknown) (unknown) (no date) (unknown) (unknown) Pulse Oximetry 97 (units unknown) (unknown) (unknown) (no date) (unknown) (unknown) Pulse Oximetry 98 02/18/23 13:13 (units unknown) (unknown) (unknown) (no date) (unknown) (unknown) Pulse Oximetry 98 96 98 (units unknown) (unknown) (unknown) (no date) (unknown) (unknown) Pulse Rate 85 (units unknown) (unknown) (unknown) (no date) (unknown) (unknown) Pulse Rate 86 85 (units unknown) (unknown) (unknown) (no date) (unknown) (unknown) Pulse Rate 87 (units unknown) (unknown) (unknown) (no date) (unknown) (unknown) Pulse Rate 89 91 H (units unknown) (unknown) (unknown) (no date) (unknown) (unknown) Pulse Rate 97 H 86 (units unknown) (unknown) (unknown) (no date) (unknown) (unknown) RBC 4.19 (4.0-5.2) X106/uL (units unknown) (unknown) (unknown) (no date) (unknown) (unknown) RBC Morphology Renee l morphology (units unknown) (unknown) (unknown) (no date) (unknown) (unknown) RDW 14.7 (11.6-14.8) % (units unknown) (unknown) (unknown) (no date) (unknown) (unknown) ROS Unobtainable: Al l systems reviewed + are unremarkable except as noted in HPI (units unknown) (unknown) (unknown) (no date) (unknown) (unknown) RSV (PCR) Not detect ed (Not Detect) (units unknown) (unknown) (unknown) (no date) (unknown) (unknown) RT Consult Eval and Treat NOW (units unknown) (unknown) (unknown) (no date) (unknown) (unknown) Radiologist's Impression: (units unknown) (unknown) (unknown) (no date) (unknown) (unknown) Rate: regular rate (units unknown) (unknown) (unknown) (no date) (unknown) (unknown) Referrals: (units unknown) (unknown) (unknown) (no date) (unknown) (unknown) Related Data (units unknown) (unknown) (unknown) (no date) (unknown) (unknown) Resp (units unknown) (unknown) (unknown) (no date) (unknown) (unknown) Respiratory Panel (Film Array) Stat (units unknown) (unknown) (unknown) (no date) (unknown) (unknown) Respiratory Rate 17 (units unknown) (unknown) (unknown) (no date) (unknown) (unknown) Respiratory Rate 23 (units unknown) (unknown) (unknown) (no date) (unknown) (unknown) Respiratory Rate 24 22 (units unknown) (unknown) (unknown) (no date) (unknown) (unknown) Respiratory Rate 24 29 H (units unknown) (unknown) (unknown) (no date) (unknown) (unknown) Respiratory Rate (units unknown) (unknown) (unknown) (no date) (unknown) (unknown) Review of Systems (units unknown) (unknown) (unknown) (no date) (unknown) (unknown) Rexulti 2 mg Tablet (units unknown) (unknown) (unknown) (no date) (unknown) (unknown) Rhythm: regular rhythm (units unknown) (unknown) (unknown) (no date) (unknown) (unknown) Rx Instructions: (units unknown) (unknown) (unknown) (no date) (unknown) (unknown) SARS-CoV-2 (PCR) Not detected (Not Detecte) (units unknown) (unknown) (unknown) (no date) (unknown) (unknown) See Rx Instructions .ROUTE .COMPLEX Qty: 21 0RF (units unknown) (unknown) (unknown) (no date) (unknown) (unknown) Seg Neutrophils % 68 .0 (38-70) % (units unknown) (unknown) (unknown) (no date) (unknown) (unknown) Signed By: (units unknown) (unknown) (unknown) (no date) (unknown) (unknown) Sinus rhythm (units unknown) (unknown) (unknown) (no date) (unknown) (unknown) Skin (units unknown) (unknown) (unknown) (no date) (unknown) (unknown) Smoking Status: Current every day smoker (units unknown) (unknown) (unknown) (no date) (unknown) (unknown) Social History (units unknown) (unknown) (unknown) (no date) (unknown) (unknown) Sodium 135 L (137-14 5) mmol/L (units unknown) (unknown) (unknown) (no date) (unknown) (unknown) Source: patient and EMS (units unknown) (unknown) (unknown) (no date) (unknown) (unknown) Spiriva with HandiHaler 18 mcg Capsule, W/Inhalation Device (units unknown) (unknown) (unknown) (no date) (unknown) (unknown) Stated complaint: cough/congestion (units unknown) (unknown) (unknown) (no date) (unknown) (unknown) Stop: 02/18/23 13:27 (units unknown) (unknown) (unknown) (no date) (unknown) (unknown) Substance Use Type: does not use (units unknown) (unknown) (unknown) (no date) (unknown) (unknown) Sulfa (Sulfonamide AdvReac Intermediate Joint Pain Verified 06/12/22 21:48 (units unknown) (unknown) (unknown) (no date) (unknown) (unknown) Surgical History (units unknown) (unknown) (unknown) (no date) (unknown) (unknown) Surgical changes and devices:? None.? (units unknown) (unknown) (unknown) (no date) (unknown) (unknown) TABLETS . (units unknown) (unknown) (unknown) (no date) (unknown) (unknown) TAKE 1 TABLET BY KELSI TH DAILY (units unknown) (unknown) (unknown) (no date) (unknown) (unknown) TAKE 1 TABLET BY KELSI TH EVERY 4 TO 6 HOURS NEEDED . MAXIMUM DAILY DOSE IS 5 (units unknown) (unknown) (unknown) (no date) (unknown) (unknown) TAKE 1 TABLET BY KELSI TH EVERY DAY (units unknown) (unknown) (unknown) (no date) (unknown) (unknown) TECHNIQUE:? One view of the chest was acquired.? (units unknown) (unknown) (unknown) (no date) (unknown) (unknown) Temperature 99.3 F (units unknown) (unknown) (unknown) (no date) (unknown) (unknown) Temperature (units unknown) (unknown) (unknown) (no date) (unknown) (unknown) Time Seen by Provide r: 02/18/23 13:19 (units unknown) (unknown) (unknown) (no date) (unknown) (unknown) Total Bilirubin 0.3 (0.2-1.3) mg/dL (units unknown) (unknown) (unknown) (no date) (unknown) (unknown) Total Counted 100 (units unknown) (unknown) (unknown) (no date) (unknown) (unknown) Total Creatine Kinas e 109 (30-135) U/L (units unknown) (unknown) (unknown) (no date) (unknown) (unknown) Total Protein 6.8 (6.3-8.2) g/dL (units unknown) (unknown) (unknown) (no date) (unknown) (unknown) Troponin + CK Cardia c Panel Stat (units unknown) (unknown) (unknown) (no date) (unknown) (unknown) Troponin I < 0.012 (0.01-0.034) ng/mL (units unknown) (unknown) (unknown) (no date) (unknown) (unknown) Ventricular rate 85 (units unknown) (unknown) (unknown) (no date) (unknown) (unknown) Vital Signs - 8 hr (units unknown) (unknown) (unknown) (no date) (unknown) (unknown) Vital Signs (units unknown) (unknown) (unknown) (no date) (unknown) (unknown) Vital signs: (units unknown) (unknown) (unknown) (no date) (unknown) (unknown) WBC 12.9 H (4.5-11.0 ) X103/uL (units unknown) (unknown) (unknown) (no date) (unknown) (unknown) XR chest 1V Stat (units unknown) (unknown) (unknown) (no date) (unknown) (unknown) [Embedded Image Not Available] (units unknown) (unknown) (unknown) (no date) (unknown) (unknown) a dose pack (Medrol (Galdino)) #21 ea (units unknown) (unknown) (unknown) (no date) (unknown) (unknown) aerosol inhaler Shortness Of Breath (units unknown) (unknown) (unknown) (no date) (unknown) (unknown) albuterol sulfate 90 mcg/actuation 2 puff inhalation Q4-6H PRN 03/05/21 04/26/22 (units unknown) (unknown) (unknown) (no date) (unknown) (unknown) albuterol sulfate 90 mcg/actuation Hfa Aerosol Inhaler (units unknown) (unknown) (unknown) (no date) (unknown) (unknown) alcohol intake frequency: other (units unknown) (unknown) (unknown) (no date) (unknown) (unknown) alcohol intake: current (units unknown) (unknown) (unknown) (no date) (unknown) (unknown) alprazolam 3 mg tablet,extended 1 mg PO DAILY 03/05/21 04/26/22 (units unknown) (unknown) (unknown) (no date) (unknown) (unknown) alprazolam [Xanax XR ] 3 mg Tablet Extended Release 24 Hr (units unknown) (unknown) (unknown) (no date) (unknown) (unknown) and below (units unknown) (unknown) (unknown) (no date) (unknown) (unknown) appear (units unknown) (unknown) (unknown) (no date) (unknown) (unknown) brexpiprazole 2 mg tablet (Rexulti) 1 mg PO DAILY 03/05/21 04/26/22 (units unknown) (unknown) (unknown) (no date) (unknown) (unknown) [place] Allergy Severe Difficulty Verified 06/12/22 21:48 (units unknown) (unknown) (unknown) (no date) (unknown) (unknown) cough and congestion for the past several weeks. She was at an outside facility (units unknown) (unknown) (unknown) (no date) (unknown) (unknown) dipyridamole AdvReac Intermediate Joint Pain Verified 06/12/22 21:48 (units unknown) (unknown) (unknown) (no date) (unknown) (unknown) eggshell membrane Allergy Intermediate Abdominal Uncoded 03/08/21 07:16 (units unknown) (unknown) (unknown) (no date) (unknown) (unknown) eucalyptus Allergy Severe Difficulty Verified 06/12/22 21:48 (units unknown) (unknown) (unknown) (no date) (unknown) (unknown) fevers. She states that using the albuterol at home causes her to become very (units unknown) (unknown) (unknown) (no date) (unknown) (unknown) fluconazole 200 mg tablet 200 mg PO DAILY #7 tabs 04/27/22 (units unknown) (unknown) (unknown) (no date) (unknown) (unknown) fluconazole 200 mg tablet (units unknown) (unknown) (unknown) (no date) (unknown) (unknown) furosemide 40 mg tablet (Lasix) 120 mg PO DAILY 03/05/21 04/26/22 (units unknown) (unknown) (unknown) (no date) (unknown) (unknown) furosemide [Lasix] 4 0 mg Tablet (units unknown) (unknown) (unknown) (no date) (unknown) (unknown) gabapentin 300 mg capsule 300 mg PO BEDTIME #14 caps 06/12/22 (units unknown) (unknown) (unknown) (no date) (unknown) (unknown) gabapentin 300 mg capsule (units unknown) (unknown) (unknown) (no date) (unknown) (unknown) home with an albuter ol inhaler. She states she has already completed a course (units unknown) (unknown) (unknown) (no date) (unknown) (unknown) household members: family (units unknown) (unknown) (unknown) (no date) (unknown) (unknown) ketorolac [From Toradol] Allergy Verified 06/12/22 21:48 (units unknown) (unknown) (unknown) (no date) (unknown) (unknown) lidocaine 5 % adhesi ve patch,medicated (units unknown) (unknown) (unknown) (no date) (unknown) (unknown) lidocaine 5 % topica l patch 1 patch topical PRN PRN Pain 04/26/22 04/26/22 (units unknown) (unknown) (unknown) (no date) (unknown) (unknown) lightheaded. She has tried to use the nebulizer and also an inhaler with a (units unknown) (unknown) (unknown) (no date) (unknown) (unknown) lisinopril 10 mg Tablet (units unknown) (unknown) (unknown) (no date) (unknown) (unknown) lisinopril 10 mg tablet 10 mg PO DAILY 03/05/21 04/26/22 (units unknown) (unknown) (unknown) (no date) (unknown) (unknown) metformin 500 mg Tablet (units unknown) (unknown) (unknown) (no date) (unknown) (unknown) metformin 500 mg tablet 500 mg PO BID PRN Hyperglycemia 03/05/21 04/26/22 (units unknown) (unknown) (unknown) (no date) (unknown) (unknown) methylprednisolone 4 mg tablets in See Rx Instructions PO .COMPLEX 06/12/22 (units unknown) (unknown) (unknown) (no date) (unknown) (unknown) methylprednisolone [Medrol (Galdino)] 4 mg tablets,dose pack (units unknown) (unknown) (unknown) (no date) (unknown) (unknown) mg tablet (Percocet) (units unknown) (unknown) (unknown) (no date) (unknown) (unknown) mg tablet 4-6) (units unknown) (unknown) (unknown) (no date) (unknown) (unknown) naproxen AdvReac Intermediate Joint Pain Verified 06/12/22 21:48 (units unknown) (unknown) (unknown) (no date) (unknown) (unknown) nystatin 100,000 unit/gram topical 1 applic topical BID #14 grams 04/27/22 (units unknown) (unknown) (unknown) (no date) (unknown) (unknown) nystatin [Nystop] 100,000 unit/gram Powder (units unknown) (unknown) (unknown) (no date) (unknown) (unknown) of doxycycline and steroids without any improvement of symptoms. She had a (units unknown) (unknown) (unknown) (no date) (unknown) (unknown) orally per package directions (units unknown) (unknown) (unknown) (no date) (unknown) (unknown) oxycodone-acetaminop he n 10 mg-325 1 tab PO Q3H PRN Pain (Scale Score 04/26/22 (units unknown) (unknown) (unknown) (no date) (unknown) (unknown) oxycodone-acetaminop he n 10-325 mg tablet (units unknown) (unknown) (unknown) (no date) (unknown) (unknown) oxycodone-acetaminop he n 5 mg-325 1 tab PO Q8H PRN pain #10 tabs 06/14/22 (units unknown) (unknown) (unknown) (no date) (unknown) (unknown) oxycodone-acetaminop he n [Percocet] 5-325 mg tablet (units unknown) (unknown) (unknown) (no date) (unknown) (unknown) pantoprazole 40 mg tablet,delayed 40 mg PO QAM PRN Acid Reflux 04/26/22 04/26/22 (units unknown) (unknown) (unknown) (no date) (unknown) (unknown) pantoprazole 40 mg tablet,delayed release (DR/EC) (units unknown) (unknown) (unknown) (no date) (unknown) (unknown) powder (Nystop) (units unknown) (unknown) (unknown) (no date) (unknown) (unknown) pseudoephedrine AdvReac Intermediate Joint Pain Verified 06/12/22 21:48 (units unknown) (unknown) (unknown) (no date) (unknown) (unknown) rabeprazole 5 mg capsule,delayed 40 mg PO QAM 03/05/21 04/26/22 (units unknown) (unknown) (unknown) (no date) (unknown) (unknown) release 24 hr (Xanax XR) (units unknown) (unknown) (unknown) (no date) (unknown) (unknown) release sprinkle (AcipHex Sprinkle) (units unknown) (unknown) (unknown) (no date) (unknown) (unknown) release (units unknown) (unknown) (unknown) (no date) (unknown) (unknown) sertraline 25 mg tablet (Zoloft) 100 mg PO BID 03/05/21 04/26/22 (units unknown) (unknown) (unknown) (no date) (unknown) (unknown) sertraline [Zoloft] 25 mg Tablet (units unknown) (unknown) (unknown) (no date) (unknown) (unknown) spacer. (units unknown) (unknown) (unknown) (no date) (unknown) (unknown) syncopal episode earlier today. Is having chest discomfort with the cough. No (units unknown) (unknown) (unknown) (no date) (unknown) (unknown) tiotropium bromide 1 8 mcg capsule 1 cap inhalation DAILY 03/05/21 04/26/22 (units unknown) (unknown) (unknown) (no date) (unknown) (unknown) tobacco type: cigarettes (units unknown) (unknown) (unknown) (no date) (unknown) (unknown) unremarkable.? (units unknown) (unknown) (unknown) (no date) (unknown) (unknown) valacyclovir 1 gram tablet 1 mg PO QAM 04/26/22 04/26/22 (units unknown) (unknown) (unknown) (no date) (unknown) (unknown) valacyclovir 1 gram tablet (units unknown) (unknown) (unknown) (no date) (unknown) (unknown) with HandiHaler) (units unknown) (unknown) (unknown) (no date) (unknown) (unknown) with inhalation shadia ce (Spiriva (units unknown) (unknown) (unknown) (no date) (unknown) (unknown) yesterday. Was diagnosed with a cough and mild asthma exacerbation. Was sent (units unknown) (unknown) Result panel 196 (unknown) (no date) (unknown) (unknown) (no value) (units unknown) (unknown) (unknown) (no date) (unknown) (unknown) #75 mL (units unknown) (unknown) (unknown) (no date) (unknown) (unknown) <Electronically sign ed by Bruce Levy D.O.> (units unknown) (unknown) (unknown) (no date) (unknown) (unknown) (0.083 %) solution f or nebulization shortness of breath or wheezing (units unknown) (unknown) (unknown) (no date) (unknown) (unknown) (Scale Score 4-6) (units unknown) (unknown) (unknown) (no date) (unknown) (unknown) [id number] (units unknown) (unknown) (unknown) (no date) (unknown) (unknown) 02/18/23 02/18/23 02/18/23 Range/Units (units unknown) (unknown) (unknown) (no date) (unknown) (unknown) 02/18/23 13:20 (units unknown) (unknown) (unknown) (no date) (unknown) (unknown) 02/18/23 13:21 (units unknown) (unknown) (unknown) (no date) (unknown) (unknown) 02/18/23 13:40 (units unknown) (unknown) (unknown) (no date) (unknown) (unknown) 02/18/23 1555 (units unknown) (unknown) (unknown) (no date) (unknown) (unknown) 02/18/23 (units unknown) (unknown) (unknown) (no date) (unknown) (unknown) 04/26/22 (units unknown) (unknown) (unknown) (no date) (unknown) (unknown) 0RF (units unknown) (unknown) (unknown) (no date) (unknown) (unknown) 1 applic topical BID Qty: 14 0RF (units unknown) (unknown) (unknown) (no date) (unknown) (unknown) 1 cap INHALATION DAILY (units unknown) (unknown) (unknown) (no date) (unknown) (unknown) 1 mg PO DAILY (units unknown) (unknown) (unknown) (no date) (unknown) (unknown) 1 mg PO QAM (units unknown) (unknown) (unknown) (no date) (unknown) (unknown) 1 patch topical PRN PRN (Reason: Pain (Scale Score 4-6)) (units unknown) (unknown) (unknown) (no date) (unknown) (unknown) 1 tab PO Q3H PRN (Reason: Pain (Scale Score 4-6)) (units unknown) (unknown) (unknown) (no date) (unknown) (unknown) 1 tab PO Q8H PRN (Reason: pain) Qty: 10 0RF (units unknown) (unknown) (unknown) (no date) (unknown) (unknown) 10 mg PO DAILY (units unknown) (unknown) (unknown) (no date) (unknown) (unknown) 100 mg PO BID (units unknown) (unknown) (unknown) (no date) (unknown) (unknown) 120 mg PO DAILY (units unknown) (unknown) (unknown) (no date) (unknown) (unknown) 13:13 (units unknown) (unknown) (unknown) (no date) (unknown) (unknown) 13:14 02/18/23 (units unknown) (unknown) (unknown) (no date) (unknown) (unknown) 13:15 (units unknown) (unknown) (unknown) (no date) (unknown) (unknown) 13:21 13:40 13:40 (units unknown) (unknown) (unknown) (no date) (unknown) (unknown) 13:26 02/18/23 (units unknown) (unknown) (unknown) (no date) (unknown) (unknown) 13:30 02/18/23 (units unknown) (unknown) (unknown) (no date) (unknown) (unknown) 13:30 (units unknown) (unknown) (unknown) (no date) (unknown) (unknown) 13:36 02/18/23 (units unknown) (unknown) (unknown) (no date) (unknown) (unknown) 13:45 02/18/23 (units unknown) (unknown) (unknown) (no date) (unknown) (unknown) 14:00 02/18/23 (units unknown) (unknown) (unknown) (no date) (unknown) (unknown) 14:00 (units unknown) (unknown) (unknown) (no date) (unknown) (unknown) 15:00 (units unknown) (unknown) (unknown) (no date) (unknown) (unknown) 2 puff INHALATION Q4-6H PRN (Reason: Shortness Of Breath) (units unknown) (unknown) (unknown) (no date) (unknown) (unknown) 2.5 mg inhalation Q4-6H PRN (Reason: shortness of breath or wheezing) Qty: 75 (units unknown) (unknown) (unknown) (no date) (unknown) (unknown) 20 mg PO DAILY Qty: 30 0RF (units unknown) (unknown) (unknown) (no date) (unknown) (unknown) 200 mg PO DAILY Qty: 7 0RF (units unknown) (unknown) (unknown) (no date) (unknown) (unknown) 300 mg PO BEDTIME Qt y: 14 0RF (units unknown) (unknown) (unknown) (no date) (unknown) (unknown) 40 mg PO QAM PRN (Reason: Acid Reflux) (units unknown) (unknown) (unknown) (no date) (unknown) (unknown) 40 mg PO QAM (units unknown) (unknown) (unknown) (no date) (unknown) (unknown) 500 mg PO BID PRN (Reason: Hyperglycemia) (units unknown) (unknown) (unknown) (no date) (unknown) (unknown) ? (units unknown) (unknown) (unknown) (no date) (unknown) (unknown) ALT 18 (<35) IU/L (units unknown) (unknown) (unknown) (no date) (unknown) (unknown) AST 20 (14-36) IU/L (units unknown) (unknown) (unknown) (no date) (unknown) (unknown) AcipHex Sprinkle 5 m g Capsule, Delayed Rel Sprinkle (units unknown) (unknown) (unknown) (no date) (unknown) (unknown) Activity Restrictions/Additiona l Instructions: (units unknown) (unknown) (unknown) (no date) (unknown) (unknown) Adenovirus (PCR) Not detected (Not Detect) (units unknown) (unknown) (unknown) (no date) (unknown) (unknown) Adult (units unknown) (unknown) (unknown) (no date) (unknown) (unknown) Age/Sex: 53 / F (units unknown) (unknown) (unknown) (no date) (unknown) (unknown) Albumin 3.5 (3.5-5.0 ) g/dL (units unknown) (unknown) (unknown) (no date) (unknown) (unknown) Albumin/Globulin Rat io 1.1 (1.0-2.8) (units unknown) (unknown) (unknown) (no date) (unknown) (unknown) Albuterol/Ipratropiu m (Albuterol/Ipratropium 3 Ml Ampul) 3 ml INH NOW ONE (units unknown) (unknown) (unknown) (no date) (unknown) (unknown) Alkaline Phosphatase 133 H (38-126) U/L (units unknown) (unknown) (unknown) (no date) (unknown) (unknown) Allergies (units unknown) (unknown) (unknown) (no date) (unknown) (unknown) Allergy/AdvReac Type Severity Reaction Status Date / Time (units unknown) (unknown) (unknown) (no date) (unknown) (unknown) Antibiotics) (units unknown) (unknown) (unknown) (no date) (unknown) (unknown) Asthma (units unknown) (unknown) (unknown) (no date) (unknown) (unknown) Attestation: I personally reviewed and interpreted this ECG as follows: (units unknown) (unknown) (unknown) (no date) (unknown) (unknown) Auscultation: rhonch i and wheezes (units unknown) (unknown) (unknown) (no date) (unknown) (unknown) B. pertussis DNA (PC R) Not detected (Not Detecte) (units unknown) (unknown) (unknown) (no date) (unknown) (unknown) B.parapertussis DNA PCR Not detected (Not Detecte) (units unknown) (unknown) (unknown) (no date) (unknown) (unknown) BUN 6 L (7-17) mg/dL (units unknown) (unknown) (unknown) (no date) (unknown) (unknown) BUN/Creatinine Ratio 9.2 (6-22) (units unknown) (unknown) (unknown) (no date) (unknown) (unknown) Baso # (Auto) Not Reportable (units unknown) (unknown) (unknown) (no date) (unknown) (unknown) Baso % (Auto) Not Reportable (units unknown) (unknown) (unknown) (no date) (unknown) (unknown) Blood Pressure 107/5 8 L (units unknown) (unknown) (unknown) (no date) (unknown) (unknown) Blood Pressure 107/6 1 105/58 L (units unknown) (unknown) (unknown) (no date) (unknown) (unknown) Blood Pressure 113/60 (units unknown) (unknown) (unknown) (no date) (unknown) (unknown) Blood Pressure (units unknown) (unknown) (unknown) (no date) (unknown) (unknown) Bones and chest wall :? No suspicious bony lesions.? Overlying soft tissues (units unknown) (unknown) (unknown) (no date) (unknown) (unknown) Breathing (units unknown) (unknown) (unknown) (no date) (unknown) (unknown) CK-MB (CK-2) 1.39 (<2.37) ng/mL (units unknown) (unknown) (unknown) (no date) (unknown) (unknown) CK-MB (CK-2) Rel Ind ex 1.3 L (1.5-5.0) % (units unknown) (unknown) (unknown) (no date) (unknown) (unknown) COMPARISON:? None. (units unknown) (unknown) (unknown) (no date) (unknown) (unknown) Calcium 8.4 (8.4-10. 2) mg/dL (units unknown) (unknown) (unknown) (no date) (unknown) (unknown) Carbon Dioxide 29 (22-32) mmol/L (units unknown) (unknown) (unknown) (no date) (unknown) (unknown) Cardio (units unknown) (unknown) (unknown) (no date) (unknown) (unknown) Chest x-ray: (units unknown) (unknown) (unknown) (no date) (unknown) (unknown) Chest (units unknown) (unknown) (unknown) (no date) (unknown) (unknown) Chest: No crepitus (units unknown) (unknown) (unknown) (no date) (unknown) (unknown) Chief complaint: Shortness of Breath/Dyspnea (units unknown) (unknown) (unknown) (no date) (unknown) (unknown) Chlamy pneumoniae PC R Not detected (Not Detect) (units unknown) (unknown) (unknown) (no date) (unknown) (unknown) Chloride 97 L (98-10 7) mmol/L (units unknown) (unknown) (unknown) (no date) (unknown) (unknown) Chronic anemia (units unknown) (unknown) (unknown) (no date) (unknown) (unknown) Clinical Impression: (units unknown) (unknown) (unknown) (no date) (unknown) (unknown) Complete Blood Count AUTO DIFF Stat (units unknown) (unknown) (unknown) (no date) (unknown) (unknown) Comprehensive Metabolic Panel Stat (units unknown) (unknown) (unknown) (no date) (unknown) (unknown) Const (units unknown) (unknown) (unknown) (no date) (unknown) (unknown) Coronavirus 229E (PC R) Not detected (Not Detect) (units unknown) (unknown) (unknown) (no date) (unknown) (unknown) Coronavirus HKU1 (PC R) Not detected (Not Detect) (units unknown) (unknown) (unknown) (no date) (unknown) (unknown) Coronavirus NL63 (PC R) Not detected (Not Detect) (units unknown) (unknown) (unknown) (no date) (unknown) (unknown) Coronavirus OC43 (PC R) Detected H (Not Detect) (units unknown) (unknown) (unknown) (no date) (unknown) (unknown) Course (units unknown) (unknown) (unknown) (no date) (unknown) (unknown) Creatinine 0.65 (0.52-1.04) mg/dL (units unknown) (unknown) (unknown) (no date) (unknown) (unknown) : 1970 Acct:[id number] (units unknown) (unknown) (unknown) (no date) (unknown) (unknown) Date of Service: 02/18/23 (units unknown) (unknown) (unknown) (no date) (unknown) (unknown) Departure (units unknown) (unknown) (unknown) (no date) (unknown) (unknown) Diabetes mellitus, type 2 (units unknown) (unknown) (unknown) (no date) (unknown) (unknown) Discharge Plan (units unknown) (unknown) (unknown) (no date) (unknown) (unknown) Discontinued Medications (units unknown) (unknown) (unknown) (no date) (unknown) (unknown) Nikolai Gray MD [Primary Care Provider] (units unknown) (unknown) (unknown) (no date) (unknown) (unknown) Documented By: TACHO (units unknown) (unknown) (unknown) (no date) (unknown) (unknown) Documented By: TACHOF (units unknown) (unknown) (unknown) (no date) (unknown) (unknown) Documented By: RLS (units unknown) (unknown) (unknown) (no date) (unknown) (unknown) ECG Data (units unknown) (unknown) (unknown) (no date) (unknown) (unknown) ED Orders (units unknown) (unknown) (unknown) (no date) (unknown) (unknown) EKG-12 Lead Stat (units unknown) (unknown) (unknown) (no date) (unknown) (unknown) ER Physician: Bruce Levy D.O. (units unknown) (unknown) (unknown) (no date) (unknown) (unknown) Effort + Inspection: normal respiratory effort and cough (units unknown) (unknown) (unknown) (no date) (unknown) (unknown) Emergency Report (units unknown) (unknown) (unknown) (no date) (unknown) (unknown) Entero/Rhino (PCR) N ot detected (Not Detect) (units unknown) (unknown) (unknown) (no date) (unknown) (unknown) Eos % (Auto) Not Reportable (units unknown) (unknown) (unknown) (no date) (unknown) (unknown) Eosinophils % ([place]) 3.0 (2-4) % (units unknown) (unknown) (unknown) (no date) (unknown) (unknown) Estimated GFR > 60 (>60) mL/min (units unknown) (unknown) (unknown) (no date) (unknown) (unknown) Exam (units unknown) (unknown) (unknown) (no date) (unknown) (unknown) Extrem (units unknown) (unknown) (unknown) (no date) (unknown) (unknown) FINDINGS:? (units unknown) (unknown) (unknown) (no date) (unknown) (unknown) Fibromyalgia (units unknown) (unknown) (unknown) (no date) (unknown) (unknown) Fraction of Inspired Oxygen 21 (units unknown) (unknown) (unknown) (no date) (unknown) (unknown) Fraction of Inspired Oxygen (units unknown) (unknown) (unknown) (no date) (unknown) (unknown) GI (units unknown) (unknown) (unknown) (no date) (unknown) (unknown) General (units unknown) (unknown) (unknown) (no date) (unknown) (unknown) General: cooperative and comfortable (units unknown) (unknown) (unknown) (no date) (unknown) (unknown) General: no rashes o r lesions noted (units unknown) (unknown) (unknown) (no date) (unknown) (unknown) General: normal to inspection and capillary refill normal (units unknown) (unknown) (unknown) (no date) (unknown) (unknown) General: patient alert, patient awake and moves all extremities (units unknown) (unknown) (unknown) (no date) (unknown) (unknown) Globulin 3.3 (1.7-4. 1) g/dL (units unknown) (unknown) (unknown) (no date) (unknown) (unknown) Glucose 136 H (70-10 0) mg/dL (units unknown) (unknown) (unknown) (no date) (unknown) (unknown) HENMT (units unknown) (unknown) (unknown) (no date) (unknown) (unknown) HPI - General Adult (units unknown) (unknown) (unknown) (no date) (unknown) (unknown) HPI narrative: (units unknown) (unknown) (unknown) (no date) (unknown) (unknown) Hct 40.0 (36-46) % (units unknown) (unknown) (unknown) (no date) (unknown) (unknown) Head: normal to inspection and normocephalic (units unknown) (unknown) (unknown) (no date) (unknown) (unknown) Hgb 13.8 (12.0-16.0) g/dL (units unknown) (unknown) (unknown) (no date) (unknown) (unknown) History of Present Illness (units unknown) (unknown) (unknown) (no date) (unknown) (unknown) History of arthrosco py of right shoulder (03/08/21) (units unknown) (unknown) (unknown) (no date) (unknown) (unknown) History of carpal tunnel release (units unknown) (unknown) (unknown) (no date) (unknown) (unknown) Home Medications (units unknown) (unknown) (unknown) (no date) (unknown) (unknown) Human Metapneumovir PCR Not detected (Not Detect) (units unknown) (unknown) (unknown) (no date) (unknown) (unknown) Hx of abdominal surgery (units unknown) (unknown) (unknown) (no date) (unknown) (unknown) Hx of arthroscopic knee surgery (units unknown) (unknown) (unknown) (no date) (unknown) (unknown) Hx of cholecystectomy (units unknown) (unknown) (unknown) (no date) (unknown) (unknown) Hx of foot surgery (units unknown) (unknown) (unknown) (no date) (unknown) (unknown) Hx of lumbosacral spine surgery (units unknown) (unknown) (unknown) (no date) (unknown) (unknown) IMPRESSION:? No acut e pulmonary process. (units unknown) (unknown) (unknown) (no date) (unknown) (unknown) INDICATIONS:? Shortness of breath (units unknown) (unknown) (unknown) (no date) (unknown) (unknown) Imaging Data (units unknown) (unknown) (unknown) (no date) (unknown) (unknown) Infection due to parainfluenza virus 2, Coronavirus infection, Asthma (units unknown) (unknown) (unknown) (no date) (unknown) (unknown) Influenza Type A (PC R) Not detected (Not Detect) (units unknown) (unknown) (unknown) (no date) (unknown) (unknown) Influenza Type B (PC R) Not detected (Not Detect) (units unknown) (unknown) (unknown) (no date) (unknown) (unknown) Initial Vital Signs (units unknown) (unknown) (unknown) (no date) (unknown) (unknown) Initial Vital Signs: (units unknown) (unknown) (unknown) (no date) (unknown) (unknown) Inspection: normal t o inspection (units unknown) (unknown) (unknown) (no date) (unknown) (unknown) Instructions: Asthma -- Adult, DI for Viral Upper Respiratory Infection (units unknown) (unknown) (unknown) (no date) (unknown) (unknown) Interpretation: (units unknown) (unknown) (unknown) (no date) (unknown) (unknown) [address] [address] (units unknown) (unknown) (unknown) (no date) (unknown) (unknown) Lab Data (units unknown) (unknown) (unknown) (no date) (unknown) (unknown) Lab Results (units unknown) (unknown) (unknown) (no date) (unknown) (unknown) Lab results reviewed : Yes I reviewed the patient's lab results. (units unknown) (unknown) (unknown) (no date) (unknown) (unknown) Labs: (units unknown) (unknown) (unknown) (no date) (unknown) (unknown) Last Admin: 02/18/23 13:35 Dose: 3 ml (units unknown) (unknown) (unknown) (no date) (unknown) (unknown) Last Admin: 02/18/23 13:43 Dose: 125 mg (units unknown) (unknown) (unknown) (no date) (unknown) (unknown) Last Admin: 02/18/23 14:59 Dose: 3 ml (units unknown) (unknown) (unknown) (no date) (unknown) (unknown) Limitations: no limitations (units unknown) (unknown) (unknown) (no date) (unknown) (unknown) Lungs and pleura:? Lungs are clear.? No pleural effusions or pneumothorax.? (units unknown) (unknown) (unknown) (no date) (unknown) (unknown) Lupus (units unknown) (unknown) (unknown) (no date) (unknown) (unknown) Lymph # (Auto) Not Reportable (units unknown) (unknown) (unknown) (no date) (unknown) (unknown) Lymph % (Auto) Not Reportable (units unknown) (unknown) (unknown) (no date) (unknown) (unknown) Lymphocytes % ([place]) 23.0 L (25-45) % (units unknown) (unknown) (unknown) (no date) (unknown) (unknown) M. pneumoniae (PCR) Not detected (Not Detect) (units unknown) (unknown) (unknown) (no date) (unknown) (unknown) MCH 32.9 (26-34) PG (units unknown) (unknown) (unknown) (no date) (unknown) (unknown) MCHC 34.4 (30-36) % (units unknown) (unknown) (unknown) (no date) (unknown) (unknown) MCV 95.5 (80-100) fL (units unknown) (unknown) (unknown) (no date) (unknown) (unknown) MDM Narrative (units unknown) (unknown) (unknown) (no date) (unknown) (unknown) Measure peak expiratory flow ONCE (units unknown) (unknown) (unknown) (no date) (unknown) (unknown) Mediastinum:? Mediastinal contours appear normal.? Heart size is normal.? (units unknown) (unknown) (unknown) (no date) (unknown) (unknown) Medical Decision Making (units unknown) (unknown) (unknown) (no date) (unknown) (unknown) Medical History (units unknown) (unknown) (unknown) (no date) (unknown) (unknown) Medical Records (units unknown) (unknown) (unknown) (no date) (unknown) (unknown) Medical decision making narrative: (units unknown) (unknown) (unknown) (no date) (unknown) (unknown) Medical records reviewed: Yes I reviewed the patient's medical records. 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, non-alcoholic (units unknown) (unknown) (unknown) (no date) (unknown) (unknown) Mode of arrival: EMS (units unknown) (unknown) (unknown) (no date) (unknown) (unknown) Real # (Auto) Not Reportable (units unknown) (unknown) (unknown) (no date) (unknown) (unknown) Real % (Auto) Not Reportable (units unknown) (unknown) (unknown) (no date) (unknown) (unknown) Monocytes % (Manual) 6.0 (2-11) % (units unknown) (unknown) (unknown) (no date) (unknown) (unknown) NT-Pro-B Natriuret P ep 79 (<125) pg/mL (units unknown) (unknown) (unknown) (no date) (unknown) (unknown) NT-proBNP (BNP-Adult 18+) Stat (units unknown) (unknown) (unknown) (no date) (unknown) (unknown) Neuro (units unknown) (unknown) (unknown) (no date) (unknown) (unknown) Neut % (Auto) Not Reportable (units unknown) (unknown) (unknown) (no date) (unknown) (unknown) Neutrophils # (Carin l) [id number] H ([id number]) /uL (units unknown) (unknown) (unknown) (no date) (unknown) (unknown) New (units unknown) (unknown) (unknown) (no date) (unknown) (unknown) No Action (units unknown) (unknown) (unknown) (no date) (unknown) (unknown) No ST T wave changes (units unknown) (unknown) (unknown) (no date) (unknown) (unknown) Normal QRS (units unknown) (unknown) (unknown) (no date) (unknown) (unknown) Obesity, morbid, BMI 50 or higher (units unknown) (unknown) (unknown) (no date) (unknown) (unknown) Ordered: (units unknown) (unknown) (unknown) (no date) (unknown) (unknown) Orders (units unknown) (unknown) (unknown) (no date) (unknown) (unknown) Osteoarthritis (units unknown) (unknown) (unknown) (no date) (unknown) (unknown) Oxygen Delivery Meth od Room Air Room Air (units unknown) (unknown) (unknown) (no date) (unknown) (unknown) Oxygen Delivery Method (units unknown) (unknown) (unknown) (no date) (unknown) (unknown) Oxygen Flow Rate 0 (units unknown) (unknown) (unknown) (no date) (unknown) (unknown) Oxygen Flow Rate (units unknown) (unknown) (unknown) (no date) (unknown) (unknown) PROCEDURE:? XR CHEST 1V (units unknown) (unknown) (unknown) (no date) (unknown) (unknown) Pain (units unknown) (unknown) (unknown) (no date) (unknown) (unknown) Parainfluenza 1 (PCR ) Not detected (Not Detect) (units unknown) (unknown) (unknown) (no date) (unknown) (unknown) Parainfluenza 2 (PCR ) Detected H (Not Detect) (units unknown) (unknown) (unknown) (no date) (unknown) (unknown) Parainfluenza 3 (PCR ) Not detected (Not Detect) (units unknown) (unknown) (unknown) (no date) (unknown) (unknown) Parainfluenza 4 (PCR ) Not detected (Not Detect) (units unknown) (unknown) (unknown) (no date) (unknown) (unknown) Patient Comments: (units unknown) (unknown) (unknown) (no date) (unknown) (unknown) Patient Disposition: Home (units unknown) (unknown) (unknown) (no date) (unknown) (unknown) Patient History (units unknown) (unknown) (unknown) (no date) (unknown) (unknown) Patient is a 53-year-old female. History of asthma. Is here for evaluation of (units unknown) (unknown) (unknown) (no date) (unknown) (unknown) Patient is positive for coronavirus and parainfluenza. Her chest x-ray is (units unknown) (unknown) (unknown) (no date) (unknown) (unknown) Patient: Anat Ramon MR#: [id number] (units unknown) (unknown) (unknown) (no date) (unknown) (unknown) [place] Allergy Severe Difficulty Verified 06/12/22 21:48 (units unknown) (unknown) (unknown) (no date) (unknown) (unknown) Plt Count 291 (150-400) X103/uL (units unknown) (unknown) (unknown) (no date) (unknown) (unknown) Potassium 3.1 L (3.4-5.1) mmol/L (units unknown) (unknown) (unknown) (no date) (unknown) (unknown) Prescriptions: (units unknown) (unknown) (unknown) (no date) (unknown) (unknown) Previous Rx's (units unknown) (unknown) (unknown) (no date) (unknown) (unknown) Procalcitonin Cancelled (units unknown) (unknown) (unknown) (no date) (unknown) (unknown) Psoriatic arthritis (units unknown) (unknown) (unknown) (no date) (unknown) (unknown) Pulse Oximetry 94 95 (units unknown) (unknown) (unknown) (no date) (unknown) (unknown) Pulse Oximetry 97 97 (units unknown) (unknown) (unknown) (no date) (unknown) (unknown) Pulse Oximetry 97 98 (units unknown) (unknown) (unknown) (no date) (unknown) (unknown) Pulse Oximetry 97 (units unknown) (unknown) (unknown) (no date) (unknown) (unknown) Pulse Oximetry 98 02/18/23 13:13 (units unknown) (unknown) (unknown) (no date) (unknown) (unknown) Pulse Oximetry 98 96 98 (units unknown) (unknown) (unknown) (no date) (unknown) (unknown) Pulse Rate 85 84 (units unknown) (unknown) (unknown) (no date) (unknown) (unknown) Pulse Rate 86 85 (units unknown) (unknown) (unknown) (no date) (unknown) (unknown) Pulse Rate 87 (units unknown) (unknown) (unknown) (no date) (unknown) (unknown) Pulse Rate 89 91 H (units unknown) (unknown) (unknown) (no date) (unknown) (unknown) Pulse Rate 97 H 86 (units unknown) (unknown) (unknown) (no date) (unknown) (unknown) RBC 4.19 (4.0-5.2) X106/uL (units unknown) (unknown) (unknown) (no date) (unknown) (unknown) RBC Morphology Renee l morphology (units unknown) (unknown) (unknown) (no date) (unknown) (unknown) RDW 14.7 (11.6-14.8) % (units unknown) (unknown) (unknown) (no date) (unknown) (unknown) ROS Unobtainable: Al l systems reviewed + are unremarkable except as noted in HPI (units unknown) (unknown) (unknown) (no date) (unknown) (unknown) RSV (PCR) Not detect ed (Not Detect) (units unknown) (unknown) (unknown) (no date) (unknown) (unknown) RT Consult Eval and Treat NOW (units unknown) (unknown) (unknown) (no date) (unknown) (unknown) Radiologist's Impression: (units unknown) (unknown) (unknown) (no date) (unknown) (unknown) Rate: regular rate (units unknown) (unknown) (unknown) (no date) (unknown) (unknown) Referrals: (units unknown) (unknown) (unknown) (no date) (unknown) (unknown) Related Data (units unknown) (unknown) (unknown) (no date) (unknown) (unknown) Resp (units unknown) (unknown) (unknown) (no date) (unknown) (unknown) Respiratory Panel (Film Array) Stat (units unknown) (unknown) (unknown) (no date) (unknown) (unknown) Respiratory Rate 17 14 (units unknown) (unknown) (unknown) (no date) (unknown) (unknown) Respiratory Rate 23 (units unknown) (unknown) (unknown) (no date) (unknown) (unknown) Respiratory Rate 24 22 (units unknown) (unknown) (unknown) (no date) (unknown) (unknown) Respiratory Rate 24 29 H (units unknown) (unknown) (unknown) (no date) (unknown) (unknown) Respiratory Rate (units unknown) (unknown) (unknown) (no date) (unknown) (unknown) Review of Systems (units unknown) (unknown) (unknown) (no date) (unknown) (unknown) Rexulti 2 mg Tablet (units unknown) (unknown) (unknown) (no date) (unknown) (unknown) Rhythm: regular rhythm (units unknown) (unknown) (unknown) (no date) (unknown) (unknown) Rx Instructions: (units unknown) (unknown) (unknown) (no date) (unknown) (unknown) SARS-CoV-2 (PCR) Not detected (Not Detecte) (units unknown) (unknown) (unknown) (no date) (unknown) (unknown) See Rx Instructions .ROUTE .COMPLEX Qty: 21 0RF (units unknown) (unknown) (unknown) (no date) (unknown) (unknown) Seg Neutrophils % 68 .0 (38-70) % (units unknown) (unknown) (unknown) (no date) (unknown) (unknown) Signed By: (units unknown) (unknown) (unknown) (no date) (unknown) (unknown) Sinus rhythm (units unknown) (unknown) (unknown) (no date) (unknown) (unknown) Skin (units unknown) (unknown) (unknown) (no date) (unknown) (unknown) Smoking Status: Current every day smoker (units unknown) (unknown) (unknown) (no date) (unknown) (unknown) Social History (units unknown) (unknown) (unknown) (no date) (unknown) (unknown) Sodium 135 L (137-14 5) mmol/L (units unknown) (unknown) (unknown) (no date) (unknown) (unknown) Source: patient and EMS (units unknown) (unknown) (unknown) (no date) (unknown) (unknown) Spiriva with HandiHaler 18 mcg Capsule, W/Inhalation Device (units unknown) (unknown) (unknown) (no date) (unknown) (unknown) Stand Alone Forms: Patient Portal/API (units unknown) (unknown) (unknown) (no date) (unknown) (unknown) Stated complaint: cough/congestion (units unknown) (unknown) (unknown) (no date) (unknown) (unknown) Stop: 02/18/23 13:27 (units unknown) (unknown) (unknown) (no date) (unknown) (unknown) Stop: 02/18/23 14:58 (units unknown) (unknown) (unknown) (no date) (unknown) (unknown) Stop: 02/18/23 15:00 (units unknown) (unknown) (unknown) (no date) (unknown) (unknown) Substance Use Type: does not use (units unknown) (unknown) (unknown) (no date) (unknown) (unknown) Sulfa (Sulfonamide AdvReac Intermediate Joint Pain Verified 06/12/22 21:48 (units unknown) (unknown) (unknown) (no date) (unknown) (unknown) Surgical History (units unknown) (unknown) (unknown) (no date) (unknown) (unknown) Surgical changes and devices:? None.? (units unknown) (unknown) (unknown) (no date) (unknown) (unknown) TABLETS . (units unknown) (unknown) (unknown) (no date) (unknown) (unknown) TAKE 1 TABLET BY KELSI TH DAILY (units unknown) (unknown) (unknown) (no date) (unknown) (unknown) TAKE 1 TABLET BY KELSI TH EVERY 4 TO 6 HOURS NEEDED . MAXIMUM DAILY DOSE IS 5 (units unknown) (unknown) (unknown) (no date) (unknown) (unknown) TAKE 1 TABLET BY KELSI TH EVERY DAY (units unknown) (unknown) (unknown) (no date) (unknown) (unknown) TECHNIQUE:? One view of the chest was acquired.? (units unknown) (unknown) (unknown) (no date) (unknown) (unknown) Temperature 99.3 F (units unknown) (unknown) (unknown) (no date) (unknown) (unknown) Temperature (units unknown) (unknown) (unknown) (no date) (unknown) (unknown) Time Seen by Provide r: 02/18/23 13:19 (units unknown) (unknown) (unknown) (no date) (unknown) (unknown) Total Bilirubin 0.3 (0.2-1.3) mg/dL (units unknown) (unknown) (unknown) (no date) (unknown) (unknown) Total Counted 100 (units unknown) (unknown) (unknown) (no date) (unknown) (unknown) Total Creatine Kinas e 109 (30-135) U/L (units unknown) (unknown) (unknown) (no date) (unknown) (unknown) Total Protein 6.8 (6.3-8.2) g/dL (units unknown) (unknown) (unknown) (no date) (unknown) (unknown) Troponin + CK Cardia c Panel Stat (units unknown) (unknown) (unknown) (no date) (unknown) (unknown) Troponin I < 0.012 (0.01-0.034) ng/mL (units unknown) (unknown) (unknown) (no date) (unknown) (unknown) Ventricular rate 85 (units unknown) (unknown) (unknown) (no date) (unknown) (unknown) Vital Signs - 8 hr (units unknown) (unknown) (unknown) (no date) (unknown) (unknown) Vital Signs (units unknown) (unknown) (unknown) (no date) (unknown) (unknown) Vital signs: (units unknown) (unknown) (unknown) (no date) (unknown) (unknown) WBC 12.9 H (4.5-11.0 ) X103/uL (units unknown) (unknown) (unknown) (no date) (unknown) (unknown) XR chest 1V Stat (units unknown) (unknown) (unknown) (no date) (unknown) (unknown) You were positive today for 2 respiratory viruses. One of them is called (units unknown) (unknown) (unknown) (no date) (unknown) (unknown) [Embedded Image Not Available] (units unknown) (unknown) (unknown) (no date) (unknown) (unknown) a dose pack (Medrol (Galdino)) #21 ea (units unknown) (unknown) (unknown) (no date) (unknown) (unknown) aerosol inhaler Shortness Of Breath (units unknown) (unknown) (unknown) (no date) (unknown) (unknown) albuterol sulfate 2. 5 mg /3 mL (0.083 %) solution for nebulization (units unknown) (unknown) (unknown) (no date) (unknown) (unknown) albuterol sulfate 2. 5 mg/3 mL 2.5 mg (3 mL) inhalation Q4-6H PRN 02/18/23 (units unknown) (unknown) (unknown) (no date) (unknown) (unknown) albuterol sulfate 90 mcg/actuation 2 puff inhalation Q4-6H PRN 03/05/21 04/26/22 (units unknown) (unknown) (unknown) (no date) (unknown) (unknown) albuterol sulfate 90 mcg/actuation Hfa Aerosol Inhaler (units unknown) (unknown) (unknown) (no date) (unknown) (unknown) alcohol intake frequency: other (units unknown) (unknown) (unknown) (no date) (unknown) (unknown) alcohol intake: current (units unknown) (unknown) (unknown) (no date) (unknown) (unknown) alprazolam 3 mg tablet,extended 1 mg PO DAILY 03/05/21 04/26/22 (units unknown) (unknown) (unknown) (no date) (unknown) (unknown) alprazolam [Xanax XR ] 3 mg Tablet Extended Release 24 Hr (units unknown) (unknown) (unknown) (no date) (unknown) (unknown) also her coughing. Will discharge patient home with steroids. I will also (units unknown) (unknown) (unknown) (no date) (unknown) (unknown) and below (units unknown) (unknown) (unknown) (no date) (unknown) (unknown) appear (units unknown) (unknown) (unknown) (no date) (unknown) (unknown) brexpiprazole 2 mg tablet (Rexulti) 1 mg PO DAILY 03/05/21 04/26/22 (units unknown) (unknown) (unknown) (no date) (unknown) (unknown) [place] Allergy Severe Difficulty Verified 06/12/22 21:48 (units unknown) (unknown) (unknown) (no date) (unknown) (unknown) cough and congestion for the past several weeks. She was at an outside facility (units unknown) (unknown) (unknown) (no date) (unknown) (unknown) dipyridamole AdvReac Intermediate Joint Pain Verified 06/12/22 21:48 (units unknown) (unknown) (unknown) (no date) (unknown) (unknown) eggshell membrane Allergy Intermediate Abdominal Uncoded 03/08/21 07:16 (units unknown) (unknown) (unknown) (no date) (unknown) (unknown) emergency department for worsening symptoms. (units unknown) (unknown) (unknown) (no date) (unknown) (unknown) eucalyptus Allergy Severe Difficulty Verified 06/12/22 21:48 (units unknown) (unknown) (unknown) (no date) (unknown) (unknown) expressed understanding and agreement. (units unknown) (unknown) (unknown) (no date) (unknown) (unknown) fevers. She states that using the albuterol at home causes her to become very (units unknown) (unknown) (unknown) (no date) (unknown) (unknown) fluconazole 200 mg tablet 200 mg PO DAILY #7 tabs 04/27/22 (units unknown) (unknown) (unknown) (no date) (unknown) (unknown) fluconazole 200 mg tablet (units unknown) (unknown) (unknown) (no date) (unknown) (unknown) frequently at home. Take the steroids like we discussed. Return to the (units unknown) (unknown) (unknown) (no date) (unknown) (unknown) furosemide 40 mg tablet (Lasix) 120 mg PO DAILY 03/05/21 04/26/22 (units unknown) (unknown) (unknown) (no date) (unknown) (unknown) furosemide [Lasix] 4 0 mg Tablet (units unknown) (unknown) (unknown) (no date) (unknown) (unknown) gabapentin 300 mg capsule 300 mg PO BEDTIME #14 caps 06/12/22 (units unknown) (unknown) (unknown) (no date) (unknown) (unknown) gabapentin 300 mg capsule (units unknown) (unknown) (unknown) (no date) (unknown) (unknown) has improved after t he nebulizer treatments. No indication for antibiotics. I (units unknown) (unknown) (unknown) (no date) (unknown) (unknown) home with an albuter ol inhaler. She states she has already completed a course (units unknown) (unknown) (unknown) (no date) (unknown) (unknown) household members: family (units unknown) (unknown) (unknown) (no date) (unknown) (unknown) is a neither virus that is in the coronavirus family. Neither these infections (units unknown) (unknown) (unknown) (no date) (unknown) (unknown) ketorolac [From Toradol] Allergy Verified 06/12/22 21:48 (units unknown) (unknown) (unknown) (no date) (unknown) (unknown) lidocaine 5 % adhesi ve patch,medicated (units unknown) (unknown) (unknown) (no date) (unknown) (unknown) lidocaine 5 % topica l patch 1 patch topical PRN PRN Pain 04/26/22 04/26/22 (units unknown) (unknown) (unknown) (no date) (unknown) (unknown) lightheaded. She has tried to use the nebulizer and also an inhaler with a (units unknown) (unknown) (unknown) (no date) (unknown) (unknown) lisinopril 10 mg Tablet (units unknown) (unknown) (unknown) (no date) (unknown) (unknown) lisinopril 10 mg tablet 10 mg PO DAILY 03/05/21 04/26/22 (units unknown) (unknown) (unknown) (no date) (unknown) (unknown) metformin 500 mg Tablet (units unknown) (unknown) (unknown) (no date) (unknown) (unknown) metformin 500 mg tablet 500 mg PO BID PRN Hyperglycemia 03/05/21 04/26/22 (units unknown) (unknown) (unknown) (no date) (unknown) (unknown) methylprednisolone 4 mg tablets in See Rx Instructions PO .COMPLEX 06/12/22 (units unknown) (unknown) (unknown) (no date) (unknown) (unknown) methylprednisolone [Medrol (Galdino)] 4 mg tablets,dose pack (units unknown) (unknown) (unknown) (no date) (unknown) (unknown) mg tablet (Percocet) (units unknown) (unknown) (unknown) (no date) (unknown) (unknown) mg tablet 4-6) (units unknown) (unknown) (unknown) (no date) (unknown) (unknown) naproxen AdvReac Intermediate Joint Pain Verified 06/12/22 21:48 (units unknown) (unknown) (unknown) (no date) (unknown) (unknown) nystatin 100,000 unit/gram topical 1 applic topical BID #14 grams 04/27/22 (units unknown) (unknown) (unknown) (no date) (unknown) (unknown) nystatin [Nystop] 100,000 unit/gram Powder (units unknown) (unknown) (unknown) (no date) (unknown) (unknown) of doxycycline and steroids without any improvement of symptoms. She had a (units unknown) (unknown) (unknown) (no date) (unknown) (unknown) orally per package directions (units unknown) (unknown) (unknown) (no date) (unknown) (unknown) oxycodone-acetaminop he n 10 mg-325 1 tab PO Q3H PRN Pain (Scale Score 04/26/22 (units unknown) (unknown) (unknown) (no date) (unknown) (unknown) oxycodone-acetaminop he n 10-325 mg tablet (units unknown) (unknown) (unknown) (no date) (unknown) (unknown) oxycodone-acetaminop he n 5 mg-325 1 tab PO Q8H PRN pain #10 tabs 06/14/22 (units unknown) (unknown) (unknown) (no date) (unknown) (unknown) oxycodone-acetaminop he n [Percocet] 5-325 mg tablet (units unknown) (unknown) (unknown) (no date) (unknown) (unknown) pantoprazole 40 mg tablet,delayed 40 mg PO QAM PRN Acid Reflux 04/26/22 04/26/22 (units unknown) (unknown) (unknown) (no date) (unknown) (unknown) pantoprazole 40 mg tablet,delayed release (DR/EC) (units unknown) (unknown) (unknown) (no date) (unknown) (unknown) parainfluenza virus in the other 1 is coronavirus. This is not COVID-19. This (units unknown) (unknown) (unknown) (no date) (unknown) (unknown) powder (Nystop) (units unknown) (unknown) (unknown) (no date) (unknown) (unknown) prednisone 20 mg tablet 20 mg PO DAILY #30 tabs 02/18/23 (units unknown) (unknown) (unknown) (no date) (unknown) (unknown) prednisone 20 mg tablet (units unknown) (unknown) (unknown) (no date) (unknown) (unknown) pseudoephedrine AdvReac Intermediate Joint Pain Verified 06/12/22 21:48 (units unknown) (unknown) (unknown) (no date) (unknown) (unknown) rabeprazole 5 mg capsule,delayed 40 mg PO QAM 03/05/21 04/26/22 (units unknown) (unknown) (unknown) (no date) (unknown) (unknown) refill her nebulizer medication. She was given return precautions. She (units unknown) (unknown) (unknown) (no date) (unknown) (unknown) release 24 hr (Xanax XR) (units unknown) (unknown) (unknown) (no date) (unknown) (unknown) release sprinkle (AcipHex Sprinkle) (units unknown) (unknown) (unknown) (no date) (unknown) (unknown) release (units unknown) (unknown) (unknown) (no date) (unknown) (unknown) require antibiotics. They can however cause issues especially with individuals (units unknown) (unknown) (unknown) (no date) (unknown) (unknown) sertraline 25 mg tablet (Zoloft) 100 mg PO BID 03/05/21 04/26/22 (units unknown) (unknown) (unknown) (no date) (unknown) (unknown) sertraline [Zoloft] 25 mg Tablet (units unknown) (unknown) (unknown) (no date) (unknown) (unknown) spacer. (units unknown) (unknown) (unknown) (no date) (unknown) (unknown) suspect that her presyncopal/syncopal episodes is related to her breathing and (units unknown) (unknown) (unknown) (no date) (unknown) (unknown) syncopal episode earlier today. Is having chest discomfort with the cough. No (units unknown) (unknown) (unknown) (no date) (unknown) (unknown) tiotropium bromide 1 8 mcg capsule 1 cap inhalation DAILY 03/05/21 04/26/22 (units unknown) (unknown) (unknown) (no date) (unknown) (unknown) tobacco type: cigarettes (units unknown) (unknown) (unknown) (no date) (unknown) (unknown) unremarkable. She is not hypoxic. Her lungs sound much better and her coughing (units unknown) (unknown) (unknown) (no date) (unknown) (unknown) unremarkable.? (units unknown) (unknown) (unknown) (no date) (unknown) (unknown) use as directed (units unknown) (unknown) (unknown) (no date) (unknown) (unknown) valacyclovir 1 gram tablet 1 mg PO QAM 04/26/22 04/26/22 (units unknown) (unknown) (unknown) (no date) (unknown) (unknown) valacyclovir 1 gram tablet (units unknown) (unknown) (unknown) (no date) (unknown) (unknown) with HandiHaler) (units unknown) (unknown) (unknown) (no date) (unknown) (unknown) with asthma. I recommend that you use your albuterol inhaler/nebulizer (units unknown) (unknown) (unknown) (no date) (unknown) (unknown) with inhalation shadia ce (Spiriva (units unknown) (unknown) (unknown) (no date) (unknown) (unknown) yesterday. Was diagnosed with a cough and mild asthma exacerbation. Was sent (units unknown) (unknown) Social History date description facility 2023-02-18 00:00 Smokes tobacco daily (finding) [facility] Vital Signs date measurement value units 2023-02-18 00:00 BMI 46.0 kg/m2 2023-02-18 00:00 BP_diastolic 61 mmHg 2023-02-18 00:00 BP_systolic 135 mmHg 2023-02-18 00:00 heart_rate 96 /min 2023-02-18 00:00 height_metric 165.1 cm 2023-02-18 00:00 height_standard 65 in 2023-02-18 00:00 o2_saturation 97 % 2023-02-18 00:00 respiration_rate 23 /min 2023-02-18 00:00 temperature_metric 37.39 C 2023-02-18 00:00 temperature_standard 99.3 F 2023-02-18 00:00 weight_metric 125.69 kg 2023-02-18 00:00 weight_standard 277.1 lb
[2023-03-07] MEDS ORDERED: ONDANSETRON 4 MG/2 ML VIAL IVP STA (19:05)
[2023-03-07] MEDS ORDERED: methylPREDNISolone SUCCINATE 125 MG/2 ML VIAL IVP STA (19:06)
--- NOTE | 2023-03-07 19:07 | ED Physician Documentation ---
PD HPI HEADACHE - Stated complaint Stated Complaint: MANN/VOMITING - Chief complaint Chief Complaint: Neuro - History obtained from History obtained from: Patient - History of Present Illness Timing - duration: Hours Timing - details: Gradual onset, Still present, Constant Worst headache ever?: No: Worst headache ever? Location: Global Quality: Throbbing, Aching Associated symptoms: Nausea, Eye pain, Vision changes. No: Fever, Stiff neck, Vomiting, Weakness, Numbness, Syncope, Seizure Improved by: Rest, Meds Worsened by: Light, Noise Contributing factors: No: Anticoagulated, Possible carbon monoxide, Hypertension, Other, Recent illness, Trauma Similar symptoms before: Diagnosis - Additional information Additional information: This is a 53-year-old female with a past medical history of chronic pain, on chronic Percocet therapy via pain management, and prior migraines, who presents with generalized headache that started a couple of hours ago. Headache is accompanied by nausea, vomiting and blurry vision as well as some frontal and eye pain. She denies any head trauma. She does have a history of migraines but states that this feels somewhat different. She was also concerned as she stated she checked her blood pressure at home and it was "288/54" but states that she called EMS at that time and they came to her house and her blood pressure had improved and therefore she declined transfer to the hospital but then her caregiver told her she should go therefore she Changed her mind and came to the hospital. She states that she did not sleep at all last night despite taking her regular sleep aids including melatonin and Benadryl. She has not had any fever or chills, no current cough or URI symptoms though several days ago did have an upper respiratory infection that has improved. She has no neck pain or stiffness, no chest pain or difficulty breathing, no abdominal pain, no diarrhea constipation or urinary symptoms. She did not attempt any pain medication for her symptoms but states she did take her evening medication which includes melatonin, Benadryl and another sleep aid and her symptoms actually are starting to improve. Review of Systems Constitutional: reports: Reviewed and negative Eyes: reports: Other (Blurry vision) Ears: reports: Reviewed and negative Nose: reports: Reviewed and negative Throat: reports: Reviewed and negative Cardiac: reports: Reviewed and negative Respiratory: reports: Reviewed and negative GI: reports: Reviewed and negative : reports: Reviewed and negative Skin: reports: Reviewed and negative Musculoskeletal: reports: Reviewed and negative Neurologic: reports: Headache. 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 Psych: Depression, Anxiety Musculoskeletal: Osteoarthritis, Fibromyalgia, Chronic back pain Derm: Other - Past Surgical History Past Surgical History: Yes General: Cholecystectomy Ortho: Arthroscopic surgery, Carpal Tunnel surgery HEENT: Rhinoplasty - Present Medications Home Medications: Ambulatory Orders Medication Instructions Recorded Confirmed Brexpiprazole [Rexulti] 1 mg PO DAILY 09/08/18 02/11/22 Rabeprazole Sodium [Aciphex] 40 mg ORAL DAILY 09/08/18 02/11/22 Sertraline HCl [Zoloft] 100 mg ORAL BID 09/08/18 02/11/22 Aspirin [Aspirin EC] 81 mg PO DAILY 12/04/20 02/11/22 Lisinopril [Zestril] 10 mg PO DAILY 12/04/20 02/11/22 metFORMIN [Glucophage] 500 mg PO DAILY 12/04/20 02/11/22 Albuterol Sulf [Ventolin Hfa 1 - 2 puffs INH Q4HR PRN 03/16/21 02/11/22 Inhaler] Alprazolam [Xanax] 1 mg PO TID 03/16/21 02/11/22 Furosemide [Lasix] 120 mg PO DAILY 03/16/21 02/11/22 Tiotropium [place] [Spiriva 1 puffs PO DAILY 03/16/21 02/11/22 Respimat] Ibuprofen [Motrin] 600 mg PO TID PRN #25 tab 12/02/21 02/11/22 Pantoprazole Sodium [Protonix] 40 mg PO DAILY #30 tab 02/01/22 02/11/22 Oxycodone HCl/Acetaminophen 1 tab PO 5XD 02/11/22 02/11/22 [Percocet 10-325 mg Tablet] Prochlorperazine Maleate 10 mg PO Q4HR PRN #20 tab 02/11/22 [Compazine] predniSONE [Deltasone] 40 mg PO DAILY 4 Days #8 tablet 02/25/22 Fluconazole [Diflucan] 150 mg PO Q3D #3 tablet 03/26/22 Oxycodone HCl/Acetaminophen 1 each PO Q6H PRN #18 tablet 03/26/22 [Percocet 7.5-325 mg Tablet] cephALEXin [Keflex] 500 mg PO QID 5 Days #20 cap 03/26/22 dexAMETHasone [Decadron] 4 mg PO DAILY #5 tablet 03/26/22 Clotrimazole 1% Cream [Lotrimin 1% 10 gm TOP QID #500 gr 03/30/22 Cream] Fluconazole [Diflucan] 1 tablet PO Q3D 1 Days #3 tablet 03/30/22 clindamycin HCL [Cleocin HCl] 300 mg PO QID #28 cap 03/30/22 Doxycycline Hyclate 100 mg PO BID #20 tab.sr 03/31/22 HYDROcod/ACETAM 5/325 [[place] 5/325] 1 ea PO Q6H PRN #7 tablet 04/19/22 Ibuprofen [Motrin] 600 mg PO TID PRN #25 tab 05/21/22 Oxycodone HCl/Acetaminophen 1 each PO Q8H PRN #20 tablet 05/21/22 [Percocet 7.5-325 mg Tablet] tiZANidine [Zanaflex] 4 mg PO Q8H PRN #25 tablet 05/21/22 predniSONE [Deltasone] 20 mg PO [id number] #21 tab 08/08/22 - Allergies Allergies/Adverse Reactions: Allergies Allergy/AdvReac Type Severity Reaction Status Date / Time Egg Derived Allergy Emesis, Verified 03/07/23 18:52 stomach pain eucalyptus Allergy Anaphylaxis Verified 03/07/23 18:52 naproxen [From Aleve] Allergy Cramps Verified 03/07/23 18:52 Penicillins Allergy Anaphylaxis Verified 03/07/23 18:52 Sulfa (Sulfonamide Allergy Cramps Verified 03/07/23 18:52 Antibiotics) ketorolac [From Toradol] AdvReac Headache Verified 03/07/23 18:52 - Social History Does the pt smoke?: Yes Smoking Status: Current every day smoker Does the pt drink ETOH?: No Does the pt have substance abuse?: No - Immunizations Immunizations are current?: Yes - POLST Patient has POLST: No PD ED PE NORMAL - Vitals Vital signs reviewed: Yes - General General: Alert and oriented X 3, No acute distress, Well developed/nourished - HEENT HEENT: Atraumatic, PERRL, EOMI, Moist mucous membranes, Pharynx benign - Neck Neck: Supple, no meningeal sign, No bony TTP, No adenopathy - Cardiac Cardiac: RRR - Respiratory Respiratory: No respiratory distress, Clear bilaterally - Abdomen Abdomen: Normal bowel sounds, Soft, Non tender, Non distended - Derm Derm: Normal color, Warm and dry - Extremities Extremities: No deformity, Other (1+ bilateral ankle edema) - Neuro Neuro: Alert and oriented X 3, credit and collections analyst 2-12 intact, No motor deficit, No sensory deficit, Normal speech Eye Opening: Spontaneous Motor: Obeys Commands Verbal: Oriented GCS Score: 15 - Psych Psych: Normal mood, Normal affect Results - Vitals Vitals: Vital Signs - 24 hr 03/07/23 03/07/23 18:48 20:01 Temperature 36.2 C L Heart Rate 99 88 Respiratory 16 18 Rate Blood Pressure 132/60 H 127/78 O2 Saturation 96 95 Oxygen O2 Source Room air PD Medical Decision Making - ED course Complexity details: reviewed old records, reviewed results, re-evaluated patient, considered differential, d/w patient ED course: 53-year-old female presented with a generalized headache as described in HPI. Patient does have a history of migraines and that this felt somewhat different, was not a thunderclap headache and she had no head injuries Or neurologic changes. I had low suspicion for intracranial bleed and patient has no meningeal signs. Patient remained concerned however therefore I did obtain a CT scan which was reassuring with no acute Intracranial findings. She did have signs of sinusitis on CT scan however clinically does not have signs of bacterial sinusitis and Had recent URI with symptoms improving therefore this is likely a viral sinusitis residual from her recent URI. I do not recommend treating with antibiotics at this time. Her blood pressure had reportedly been significantly elevated at home however here is completely normal and this was monitored for the duration of her stay without any change in her blood pressure. The patient received a dose of metoclopramide as well as a dose of Solu-Medrol for her headache with near complete resolution of her symptoms. Given her reassuring neurologic exam, CT scan and remainder physical exam and improvement in her symptoms, I do feel she is safe for dismissal home at this time after treatment for a likely migraine headache. I discussed return precautions if new or worsening symptoms. Departure - Departure Disposition: 01 Home, Self Care Clinical Impression: Migraine headache Qualifiers: Migraine type: without aura Status migrainosus presence: without status migrainosus Intractability: not intractable Qualified Code(s): G43.009 - Migraine without aura, not intractable, without status migrainosus Acute sinusitis Qualifiers: Sinusitis location: ethmoidal Recurrence: non-recurrent Qualified Code(s): J01.20 - Acute ethmoidal sinusitis, unspecified Condition: Good Instructions: ED Headache Migraine, ED Sinusitis No Abx Comments: Your head CT showed some mild sinusitis which is a common finding on head CT's. This is likely related to your recent viral upper respiratory infection and should improve with time. You can use [id number] nasal spray if desired. Your CT was otherwise normal and your blood pressure here was also normal. We gave you a steroid and a nausea medicine to help with the headache and your symptoms which improved. Please follow-up with your primary doctor as needed or return to the ER if worsening symptoms. Discharge Date/Time: 03/07/23 20:12
--- NOTE | 2023-03-07 19:37 | CT Report ---
PROCEDURE: HEAD WO INDICATIONS: acute severe headache TECHNIQUE: Noncontrast 4.5 mm thick angled axial sections acquired from the foramen magnum to the vertex. For r adiation dose reduction, the following was used: automated exposure control, adjustment of mA and/or kV according to patient size. COMPARISON: None. FINDINGS: Image quality: Excellent. CSF spaces: Basal cisterns are patent. No extra-axial fluid collections. Ventricles are normal in size and shape. Brain: No midline shift. No intracranial masses or hemorrhage. Wang-white matter interface is norm al. Skull and face: Calvarium and visualized facial bones are intact, without suspicious lesions. Sinuses: There is bilateral maxillary and ethmoidal sinus mucosal thickening. Mastoids are clear. IMPRESSION: 1. No acute intracranial abnormality. 2. Bilateral maxillary and ethmoid sinusitis. Reviewed by: Nazanin Malone MD on 03/07/2023 7:35 PM PDT Approved by: Nazanin Malone MD on 03/07/2023 7:35 PM PDT Station ID: [id number]
[2023-03-07 20:04] VITALS: BP 127/78
== END 2023-03-07 20:12 | disposition home or self-care (01) ==
LOC: EDUNIT# → ED 18:41
DX: G43.909 Migraine, unspecified, not intractable, without status migrainosus (principal); J01.20 Acute ethmoidal sinusitis, unspecified
CPT/HCPCS: 96374; 96375; 99283

== ENCOUNTER 2023-03-16 14:57 | Outpatient (CLI) | payer MEDICAID | END 2023-03-16 23:59 | disposition short-term general hospital (02) | LOC: EMS 14:57 | DX: M54.2 Cervicalgia (principal); R68.83 Chills (without fever); R03.1 Nonspecific low blood-pressure reading | CPT/HCPCS: A0425; A0427; A0999 ==

== ENCOUNTER 2023-03-22 15:05 | Outpatient (CLI) | payer MEDICAID | END 2023-03-22 15:06 | disposition critical access hospital (66) | LOC: EMS 15:05 | DX: M54.2 Cervicalgia (principal); M54.50 Low back pain, unspecified; M25.572 Pain in left ankle and joints of left foot; M25.562 Pain in left knee; W10.8XXA Fall (on) (from) other stairs and steps, initial encounter; Y92.009 Unspecified place in unspecified non-institutional (private) residence as the place of occurrence of the external cause | CPT/HCPCS: A0425; A0429; A0999 ==

== ENCOUNTER 2023-03-22 15:25 | Emergency (ER) | payer MEDICAID ==
[2023-03-22] MEDS ORDERED: HYDROmorphone 1 MG/ML CARPUJECT IVP STA ×3 (15:40→19:08)
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
--- NOTE | 2023-03-22 16:26 | XRAY Report ---
PROCEDURE: Ankle 3 View LT INDICATIONS: pain after fall TECHNIQUE: 3 views of the ankle were acquired. COMPARISON: None. FINDINGS: Bones: No fractures or dislocations. Ankle mortise is normally aligned. No suspicious bony lesions . Healed fracture deformity of the distal tibia and fibula shaft. Plantar calcaneal despite. Soft tissues: No tibiotalar joint effusion. Achilles tendon appears normal. IMPRESSION: No acute bony abnormality. If there remains a high clinical concern for fracture, including inability to bear weight, consider cross-sectional imaging to exclude an occult fracture. Reviewed by: Balwinder Connors on 03/22/2023 4:25 PM PDT Approved by: Balwinder Connors on 03/22/2023 4:25 PM PDT Station ID: [id number]
--- NOTE | 2023-03-22 16:27 | XRAY Report ---
PROCEDURE: Knee 2 View LT INDICATIONS: pain after fall TECHNIQUE: 3 views of the left knee(s) were acquired. COMPARISON: None. FINDINGS: Bones: No fractures or dislocations. No suspicious bony lesions. No acute cardiopulmonary process . Tricompartmental joint space narrowing with associated osteophytosis. Soft tissues: Small knee joint effusion. No suspicious soft tissue calcifications or masses. IMPRESSION: No acute bony abnormality. If there remains a high clinical concern for fracture, including inability to bear weight, consider cross-sectional imaging to exclude an occult fracture. Reviewed by: Balwinder Connors on 03/22/2023 4:26 PM PDT Approved by: Balwinder Connors on 03/22/2023 4:26 PM PDT Station ID: [id number]
[2023-03-22 16:37] LABS: BASOPHILS # (AUTO) 0.1 10^3/uL (0.0-0.1); BASOPHILS % (AUTO) 0.6 %; EOSINOPHILS # (AUTO) 0.2 10^3/uL (0.0-0.7); EOSINOPHILS % (AUTO) 2.1 %; HGB - HEMOGLOBIN 12.9 g/dL (12.0-16.0); LYMPHOCYTES # (AUTO) 2.3 10^3/uL (1.5-3.5); LYMPHOCYTES % (AUTO) 23.7 %; MEAN CORPUSCULAR HEMOGLOBIN 33.3 pg (27.0-31.0); MEAN CORPUSCULAR HGB CONC 34.9 g/dL (32.0-36.0); MEAN CORPUSCULAR VOLUME 95.6 fL (81.0-99.0); MEAN PLATELET VOLUME 9.8 fL (7.9-10.8); MONOCYTES # (AUTO) 0.5 10^3/uL (0.0-1.0); MONOCYTES % (AUTO) 5.4 %; NEUTROPHILS # (AUTO) 6.6 10^3/uL (1.5-6.6); NEUTROPHILS % (AUTO) 67.9 %; PLT - PLATELET COUNT 292 10^3/uL (130-450); RED BLOOD COUNT 3.87 10^6/uL (4.20-5.40); RED CELL DISTRIBUTION WIDTH 13.4 % (12.0-15.0); WHITE BLOOD COUNT 9.8 x10^3/uL (4.8-10.8)
--- NOTE | 2023-03-22 16:43 | CT Report ---
PROCEDURE: HEAD WO INDICATIONS: fall down stairs TECHNIQUE: Noncontrast 4.5 mm thick angled axial sections acquired from the foramen magnum to the vertex. For r adiation dose reduction, the following was used: automated exposure control, adjustment of mA and/or kV according to patient size. COMPARISON: 03/07/2023. FINDINGS: Image quality: Excellent. CSF spaces: Basal cisterns are patent. No extra-axial fluid collections. Ventricles are normal in size and shape. Brain: No midline shift. No intracranial masses or hemorrhage. Wang-white matter interface is norm al. Skull and face: Calvarium and visualized facial bones are intact, without suspicious lesions. Sinuses: Remote bilateral medial nasal antral windows and uncinate process resections. Marked bilater al maxillary sinus mucosal thickening. Relatively extensive bilateral ethmoid mucosal thickening. IMPRESSION: 1. No acute intracranial process 2. Remote paranasal sinus surgery with significant changes of chronic sinusitis. Reviewed by: Quang Briscoe MD on 03/22/2023 4:42 PM PDT Approved by: Quang Briscoe MD on 03/22/2023 4:42 PM PDT Station ID: [id number]
--- NOTE | 2023-03-22 16:45 | CT Report ---
PROCEDURE: CERVICAL SPINE WO INDICATIONS: fall down stairs TECHNIQUE: Noncontrast 3 mm thick sections acquired from the skull base to the T4 level. Sagittal and coronal r eformats were then constructed. For radiation dose reduction, the following was used: automated exp osure control, adjustment of mA and/or kV according to patient size. COMPARISON: None. FINDINGS: Image quality: Excellent. Bones: No fractures or dislocations. Visualized superior ribs are intact. Cervical spondylitic blanco ge with prominent left facet arthropathy at C2-C3 and C3-C4. Soft tissues: Prevertebral soft tissues are normal in thickness. No paravertebral hematomas. No ap ical pneumothoraces. IMPRESSION: 1. No evidence acute cervical fracture or dislocation. 2. Cervical spondylotic change. Reviewed by: Quang Briscoe MD on 03/22/2023 4:43 PM PDT Approved by: Quang Briscoe MD on 03/22/2023 4:43 PM PDT Station ID: [id number]
[2023-03-22 16:51] LABS: ALBUMIN 2.8 g/dL (3.2-5.5); ALBUMIN/GLOBULIN RATIO 0.8 (1.0-2.2); BILIRUBIN,TOTAL 0.4 mg/dL (0.2-1.0); CALCIUM 8.2 mg/dL (8.5-10.3); CREATININE 0.6 mg/dL (0.4-1.0); POTASSIUM 2.9 mmol/L (3.5-5.0); TOTAL PROTEIN 6.2 g/dL (6.7-8.2)
[2023-03-22 16:54] LABS: INR 1.1 (0.8-1.2); PT - PROTHROMBIN TIME 11.9 secs (9.9-12.6)
[2023-03-22] MEDS ORDERED: POTASSIUM BICARB 25 MEQ TABLET PO STA (17:23)
[2023-03-22] MEDS ORDERED: diazePAM INJ 5 MG/ML SYRINGE IVP STA (17:23)
--- NOTE | 2023-03-22 18:49 | CT Report ---
PROCEDURE: LUMBAR SPINE WO INDICATIONS: lbp after fall TECHNIQUE: Noncontrast 3 mm thick sections acquired from the T12 level to the sacrum. Sagittal and coronal refo rmats were constructed. For radiation dose reduction, the following was used: automated exposure co ntrol, adjustment of mA and/or kV according to patient size. COMPARISON: CT lumbar spine 05/21/2022. FINDINGS: Image quality: Excellent. Bones: There is normal bony alignment. No acute vertebral body compression fractures. No suspiciou s lytic or blastic bony lesions. Central spinal caliber is of normal overall caliber. No pars defec ts. Mild degenerative changes in the spine at the L5-S1 disc space level. Soft tissues: No retroperitoneal masses or hematomas. Visualized aorta is normal in caliber. IMPRESSION: No acute lumbar spine fracture. Reviewed by: Dandy Lr MD on 03/22/2023 6:48 PM PDT Approved by: Dandy Lr MD on 03/22/2023 6:48 PM PDT Station ID: [id number]
--- NOTE | 2023-03-22 18:49 | CT Report ---
PROCEDURE: LOWER EXTREMITY WO - LT, CT INDICATIONS: ? acuteness of left tib-fib fracture. achilles john TECHNIQUE: Noncontrast 3-mm axial sections acquired from the distal tibial shaft to the talar dome, with coronal and sagittal reformats. For radiation dose reduction, the following was used: automated exposure c ontrol, adjustment of mA and/or kV according to patient size. COMPARISON: Left ankle radiographs 03/22/2023 FINDINGS: Image quality: Excellent. Bones: Normal bone mineralization. Old healed distal tibial fracture noted with a slight anterior an gulation. Additional distal fibular diaphyseal fracture also noted to. No evidence of acute component . Ankle mortise is maintained. Hindfoot unremarkable Soft tissues: Unremarkable Impression: Old healed distal tibial and fibular diaphyseal fractures without acute component Reviewed by: Palmer Davis MD on 03/22/2023 5:48 PM [facility] Approved by: Palmer Davis MD on 03/22/2023 5:48 PM [facility] Station ID: [id number]
[2023-03-22 19:41] VITALS: BP 124/84
== END 2023-03-22 19:39 | disposition home or self-care (01) ==
LOC: EDUNIT# → ED 15:25
DX: M25.572 Pain in left ankle and joints of left foot (principal); M54.50 Low back pain, unspecified; W10.9XXA Fall (on) (from) unspecified stairs and steps, initial encounter; E11.9 Type 2 diabetes mellitus without complications; E03.9 Hypothyroidism, unspecified; Z79.899 Other long term (current) drug therapy; Z79.82 Long term (current) use of aspirin; Z79.51 Long term (current) use of inhaled steroids
CPT/HCPCS: 36415; 70450; 72125; 72131; 73560; 73610; 73700; 80053; 83690; 85025; 85610; 96374; 96375; 96376; 99284; A9270; J1170

== ENCOUNTER 2023-05-02 08:00 | Outpatient (CLI) | payer MEDICAID ==
[2023-05-02 19:36] LABS: BACTERIAL VAGINOSIS DNA POSITIVE (NEGATIVE); CANDIDA GLABRATA DNA NEGATIVE (NEGATIVE); CANDIDA GROUP DNA POSITIVE (NEGATIVE); CANDIDA KRUSEI DNA NEGATIVE (NEGATIVE); TRICHOMONAS VAGINALIS DNA NEGATIVE (NEGATIVE)
== END 2023-05-02 23:59 | disposition home or self-care (01) ==
LOC: LAB.WC 08:00
PROVIDERS: ATTEND Nurse Practitioner
DX: L29.8 Other pruritus (principal)
CPT/HCPCS: 81514

== ENCOUNTER 2023-05-15 07:05 | Outpatient (CLI) | payer MEDICAID ==
[2023-05-15 12:14] LABS: BASOPHILS # (AUTO) 0.1 10^3/uL (0.0-0.1); BASOPHILS % (AUTO) 0.6 %; EOSINOPHILS # (AUTO) 0.5 10^3/uL (0.0-0.7); EOSINOPHILS % (AUTO) 5.7 %; HCT - HEMATOCRIT 42.6 % (37.0-47.0); HGB - HEMOGLOBIN 14.3 g/dL (12.0-16.0); LYMPHOCYTES # (AUTO) 2.1 10^3/uL (1.5-3.5); LYMPHOCYTES % (AUTO) 25.1 %; MEAN CORPUSCULAR HEMOGLOBIN 32.6 pg (27.0-31.0); MEAN CORPUSCULAR HGB CONC 33.6 g/dL (32.0-36.0); MEAN PLATELET VOLUME 10.7 fL (7.9-10.8); MONOCYTES # (AUTO) 0.5 10^3/uL (0.0-1.0); MONOCYTES % (AUTO) 6.6 %; NEUTROPHILS # (AUTO) 5.1 10^3/uL (1.5-6.6); NEUTROPHILS % (AUTO) 61.8 %; PLT - PLATELET COUNT 295 10^3/uL (130-450); RED BLOOD COUNT 4.39 10^6/uL (4.20-5.40); RED CELL DISTRIBUTION WIDTH 12.8 % (12.0-15.0); WHITE BLOOD COUNT 8.2 x10^3/uL (4.8-10.8)
[2023-05-15 12:26] LABS: ALBUMIN 3.8 g/dL (3.2-5.5); ALBUMIN/GLOBULIN RATIO 1.2 (1.0-2.2); ALKALINE PHOSPHATASE 104 IU/L (42-121); ALT ALANINE AMINOTRANSFERASE 10 IU/L (10-60); AST ASPARTATE AMINOTRANSFERASE 12 IU/L (10-42); BILIRUBIN,TOTAL 0.3 mg/dL (0.2-1.0); BUN - BLOOD UREA NITROGEN 6 mg/dL (6-20); CALCIUM 8.9 mg/dL (8.5-10.3); CARBON DIOXIDE - CO2 30 mmol/L (21-32); CHLORIDE 103 mmol/L (101-111); CHOL/HDL RATIO 6.5 (<4.4); CHOLESTEROL 195 mg/dL; CREATININE 0.6 mg/dL (0.6-1.3); GFR - MDRD 105 (>89); GLUCOSE 92 mg/dL (74-104); HDL CHOLESTEROL 30 mg/dL; LDL CHOLESTEROL,CALCULATED 114 mg/dL; LDL/HDL RATIO 3.8 (<4.4); POTASSIUM 3.4 mmol/L (3.5-4.5); SODIUM 139 mmol/L (135-145); TOTAL PROTEIN 7.1 g/dL (6.4-8.9); TRIGLYCERIDES 253 mg/dL (48-352); VLDL CHOLESTEROL 51 mg/dL
[2023-05-15 12:54] LABS: THYROID STIMULATING HORMONE 2.31 uIU/mL (0.34-5.60)
[2023-05-15 14:21] LABS: ESTIMATED AVERAGE GLUCOSE 117 mg/dL (70-100); HEMOGLOBIN A1c% 5.7 % (4.27-6.07)
== END 2023-05-15 07:06 | disposition home or self-care (01) ==
LOC: LAB.N 07:05
PROVIDERS: ATTEND Physician Assistant
DX: E87.6 Hypokalemia (principal); E11.43 Type 2 diabetes mellitus with diabetic autonomic (poly)neuropathy
CPT/HCPCS: 36415; 80053; 80061; 83036; 83721; 84443; 85025

== ENCOUNTER 2023-06-24 12:01 | Outpatient (CLI) | payer MEDICAID | END 2023-06-24 12:02 | disposition short-term general hospital (02) | LOC: EMS 12:01 | DX: M25.461 Effusion, right knee (principal); M79.604 Pain in right leg; W01.0XXA Fall on same level from slipping, tripping and stumbling without subsequent striking against object, initial encounter; Y92.009 Unspecified place in unspecified non-institutional (private) residence as the place of occurrence of the external cause | CPT/HCPCS: A0425; A0427; A0999 ==

== ENCOUNTER 2023-07-17 07:04 | Outpatient (CLI) | payer MEDICAID ==
--- NOTE | 2023-07-17 09:50 | CT Report ---
PROCEDURE: Low Dose Lung Cancer Screen INDICATIONS: CIRRHOSIS, NICOTINE DEPENDENCE TECHNIQUE: A CT scan of the chest was performed. Intravenous contrast media was not administered. Images were re corded and evaluated at appropriate window settings. Reformats: axial MIP of the chest, coronal and s agittal. For radiation dose reduction, the following was used: automated exposure control, adjustment of mA and/or kV according to patient size. COMPARISON: None. FINDINGS: Image quality: There are respiratory motion artifacts bilaterally. Lungs and pleura: Mild loss,. Lingular scars and atelectasis. No pleural effusions. No pneumothorax. No suspicious pulmonary nodules which require follow up. Mediastinum: Heart size is normal. No pericardial effusion. No large vessel abnormality. No mediastin al adenopathy by size criteria. Small hiatal hernia. Chest wall and lower neck: Thyroid is unremarkable. No axillary or supraclavicular adenopathy by size . Bones: No aggressive osseous abnormality. Upper Abdomen: Unremarkable. Cholecystectomy. IMPRESSION: Limited examination due to respiratory motion artifacts. 1. No suspicious lung nodules. Lung RADS: 1. Recommendation: Recommend annual screening lung CT in 12 months. 2. Mosaic attenuation in lungs bilaterally, likely secondary to small airway disease. Reviewed by: Nazanin Malone MD on 07/17/2023 9:49 AM PDT Approved by: Nazanin Malone MD on 07/17/2023 9:49 AM PDT Station ID: [id number]
--- NOTE | 2023-07-17 14:56 | Ultrasound Report ---
PROCEDURE: Abdomen Limited INDICATIONS: CIRRHOSIS, NICOTINE DEPENDENCE TECHNIQUE: Real-time focused scanning was performed of the abdomen, with image documentation. COMPARISONS: None. FINDINGS: Liver: The liver is enlarged measuring 18.8 cm in length. No intrahepatic biliary ductal dilatation or mass. Gallbladder: Status post cholecystectomy. Biliary ducts: Intrahepatic bile ducts are non-dilated. Extrahepatic bile duct caliber measures 6 m m. Normal is 6-7 mm or less in diameter, or 10 mm or less post-cholecystectomy. Pancreas: Visualized portions of the pancreas are sonographically normal. Right kidney: Normal in size and echotexture. Right kidney measures 10.7 cm long. No hydronephrosis or nephrolithiasis. No solid masses. No complex renal cystic lesions which require follow-up. Aorta: Visualized aorta is normal in caliber at less than 3 cm. IVC: Intrahepatic inferior vena cava is patent. Miscellaneous: No free abdominal fluid. IMPRESSION: 1. No acute ultrasound abnormality. 2. The liver measures 18.8 cm, just above normal limits. Reviewed by: Danish Penn on 07/17/2023 2:55 PM PDT Approved by: Danish Penn on 07/17/2023 2:55 PM PDT Station ID: [id number]
== END 2023-07-17 07:05 | disposition home or self-care (01) ==
LOC: DI 07:04
PROVIDERS: ATTEND Physician Assistant
DX: Z12.2 Encounter for screening for malignant neoplasm of respiratory organs (principal); K74.69 Other cirrhosis of liver; F17.210 Nicotine dependence, cigarettes, uncomplicated

== ENCOUNTER 2023-10-31 07:09 | Outpatient (CLI) | payer MEDICAID | END 2023-10-31 23:59 | disposition left against medical advice (07) | LOC: EMS 07:09 | DX: R42 Dizziness and giddiness (principal); R11.2 Nausea with vomiting, unspecified; R53.81 Other malaise ==

== ENCOUNTER 2023-10-31 09:57 | Outpatient (CLI) | payer MEDICAID | END 2023-10-31 23:59 | disposition critical access hospital (66) | LOC: EMS 09:57 | DX: R11.2 Nausea with vomiting, unspecified (principal); R42 Dizziness and giddiness; R07.89 Other chest pain | CPT/HCPCS: A0425; A0427; A0999 ==

== ENCOUNTER 2023-10-31 10:19 | Emergency (ER) | payer MEDICAID ==
[2023-10-31 10:51] LABS: BASOPHILS # (AUTO) 0.1 10^3/uL (0.0-0.1); BASOPHILS % (AUTO) 0.9 %; EOSINOPHILS # (AUTO) 0.6 10^3/uL (0.0-0.7); EOSINOPHILS % (AUTO) 8.2 %; HCT - HEMATOCRIT 40.9 % (37.0-47.0); HGB - HEMOGLOBIN 13.6 g/dL (12.0-16.0); LYMPHOCYTES # (AUTO) 1.8 10^3/uL (1.5-3.5); MEAN CORPUSCULAR HEMOGLOBIN 32.3 pg (27.0-31.0); MEAN CORPUSCULAR HGB CONC 33.3 g/dL (32.0-36.0); MEAN CORPUSCULAR VOLUME 97.1 fL (81.0-99.0); MEAN PLATELET VOLUME 9.9 fL (7.9-10.8); MONOCYTES # (AUTO) 0.4 10^3/uL (0.0-1.0); MONOCYTES % (AUTO) 5.3 %; NEUTROPHILS % (AUTO) 58.3 %; PLT - PLATELET COUNT 278 10^3/uL (130-450); RED BLOOD COUNT 4.21 10^6/uL (4.20-5.40); RED CELL DISTRIBUTION WIDTH 12.5 % (12.0-15.0); WHITE BLOOD COUNT 6.8 x10^3/uL (4.8-10.8)
--- NOTE | 2023-10-31 10:53 | XRAY Report ---
PROCEDURE: Chest 1V INDICATIONS: CP TECHNIQUE: One view of the chest was acquired. COMPARISON: 02/16/2023 FINDINGS: Surgical changes and devices: None. Lungs and pleura: No pleural effusions or pneumothorax. There is moderate diffuse reticulonodular pu lmonary opacity. Mediastinum: Mediastinal contours appear normal. Heart size is normal. Bones and chest wall: No suspicious bony lesions. Overlying soft tissues appear unremarkable. IMPRESSION: Moderate edema versus atypical pneumonia. Reviewed by: Jorge Rivers MD on 10/31/2023 10:52 AM [facility] Approved by: Jorge Rivers MD on 10/31/2023 10:52 AM [facility] Station ID: [id number]
[2023-10-31] MEDS ORDERED: SODIUM CHLORIDE 0.9% 1,000 ML IV STA (11:06)
[2023-10-31 11:11] LABS: ALBUMIN 3.7 g/dL (3.2-5.5); ALBUMIN/GLOBULIN RATIO 1.2 (1.0-2.2); BILIRUBIN,TOTAL 0.3 mg/dL (0.2-1.0); CALCIUM 8.6 mg/dL (8.5-10.3); CREATININE 0.7 mg/dL (0.6-1.3); POTASSIUM 3.3 mmol/L (3.5-4.5); TOTAL PROTEIN 6.7 g/dL (6.4-8.9)
[2023-10-31 11:14] VITALS: O2SAT 100
[2023-10-31 11:21] LABS: TROPONIN I HIGH SENSITIVITY 3.3 ng/L (2.3-14.8)
--- NOTE | 2023-10-31 12:00 | ED Physician Documentation ---
History of Present Illness - Stated complaint Stated Complaint: NV/DIZZY - Chief complaint Chief Complaint: Cardiac - History obtained from History obtained from: Patient - Additonal information Additional information: Patient is a 53-year-old female with a history of lupus, diabetes, presenting for evaluation of chest pain starting around 430. Patient states that she was up sitting in a chair and started feeling tightness in her chest starting at 430 this morning. Nothing makes the pain better or worse. It does not radiate elsewhere. She reporta associated feeling a lightheaded And also having a frontal headache. She does not take any blood thinners. She states she usually takes Goody powder for headaches and gets them quite often and this feels similar. Denies vertiginous symptoms. Reports associated nausea and an episode of vomiting which improved after receiving IV Zofran from EMS. Patient is on 120 mg of Lasix daily but reports still having leg swelling which has not changed. She has not salt restricted and also does not adhere to any fluid restrictions. Review of Systems Constitutional: denies: Fever Cardiac: reports: Chest pain / pressure Respiratory: denies: Dyspnea, Cough GI: reports: Nausea, Vomiting. 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 : None Psych: Depression, Anxiety Musculoskeletal: Osteoarthritis, Fibromyalgia, Chronic back pain Derm: Other - Past Surgical History Past Surgical History: Yes General: Cholecystectomy Ortho: Arthroscopic surgery, Carpal Tunnel surgery HEENT: Rhinoplasty - Present Medications Home Medications: Ambulatory Orders Medication Instructions Recorded Confirmed Brexpiprazole [Rexulti] 1 mg PO DAILY 09/08/18 02/11/22 Rabeprazole Sodium [Aciphex] 40 mg ORAL DAILY 09/08/18 02/11/22 Sertraline HCl [Zoloft] 100 mg ORAL BID 09/08/18 02/11/22 Aspirin [Aspirin EC] 81 mg PO DAILY 12/04/20 02/11/22 metFORMIN [Glucophage] 500 mg PO DAILY PRN 12/04/20 02/11/22 Albuterol Sulf [Ventolin Hfa 1 - 2 puffs INH Q4HR PRN 03/16/21 02/11/22 Inhaler] Alprazolam [Xanax] 1 mg PO TID 03/16/21 02/11/22 Furosemide [Lasix] 120 mg PO DAILY 03/16/21 02/11/22 Tiotropium [place] [Spiriva 1 puffs PO DAILY 03/16/21 02/11/22 Respimat] Ibuprofen [Motrin] 600 mg PO TID PRN #25 tab 12/02/21 02/11/22 Oxycodone HCl/Acetaminophen 1 tab PO 5XD 02/11/22 02/11/22 [Percocet 10-325 mg Tablet] - Allergies Allergies/Adverse Reactions: Allergies Allergy/AdvReac Type Severity Reaction Status Date / Time Egg Derived Allergy Emesis, Verified 10/31/23 11:06 stomach pain eucalyptus Allergy Anaphylaxis Verified 10/31/23 11:06 morphine Allergy Rash Verified 10/31/23 11:06 naproxen [From Aleve] Allergy Cramps Verified 10/31/23 11:06 Penicillins Allergy Anaphylaxis Verified 10/31/23 11:06 Sulfa (Sulfonamide Allergy Cramps Verified 10/31/23 11:06 Antibiotics) - Social History Does the pt smoke?: Yes Smoking Status: Current every day smoker Does the pt drink ETOH?: No Does the pt have substance abuse?: No - Immunizations Immunizations are current?: Yes - POLST Patient has POLST: No PD ED PE NORMAL - General General: Alert and oriented X 3, No acute distress, Well developed/nourished - HEENT HEENT: Atraumatic, PERRL, EOMI, Moist mucous membranes, Pharynx benign - Neck Neck: Supple, no meningeal sign - Cardiac Cardiac: RRR, Strong equal pulses - Respiratory Respiratory: No respiratory distress, Clear bilaterally - Abdomen Abdomen: Normal bowel sounds, Soft, Non tender, Non distended - Derm Derm: Warm and dry - Extremities Extremities: No calf tenderness / cord - Neuro Neuro: Alert and oriented X 3, knit goods mender 2-12 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, No motor deficit, No sensory deficit, Normal speech Results - Vitals Vitals: Vital Signs - 24 hr 10/31/23 10/31/23 10/31/23 10:13 10:39 11:00 Temperature 36.8 C Heart Rate 73 75 73 Heart Rate [ Sitting] Heart Rate [ Standing] Heart Rate [ Supine] Respiratory 16 18 14 Rate Blood Pressure 143/88 H 125/71 117/77 Blood Pressure [Sitting] Blood Pressure [Standing] Blood Pressure [Supine] O2 Saturation 98 98 100 10/31/23 12:02 Temperature Heart Rate Heart Rate [ 78 Sitting] Heart Rate [ 83 Standing] Heart Rate [ 74 Supine] Respiratory Rate Blood Pressure Blood Pressure 141/83 H [Sitting] Blood Pressure 145/98 H [Standing] Blood Pressure 113/73 [Supine] O2 Saturation Oxygen O2 Source Room air - EKG (time done) 1022 EKG releavant findings:: EKG personally interpreted by author of this note. Relevant findings are: Rate 72, normal sinus rhythm, OH 243, QTc 456, no STEMI - Labs Labs: Laboratory Tests 10/31/23 10/31/23 10/31/23 10:45 10:45 10:45 WBC 6.8 RBC 4.21 Hgb 13.6 Hct 40.9 MCV 97.1 MCH 32.3 H MCHC 33.3 RDW 12.5 Plt Count 278 MPV 9.9 Neut # (Auto) 4.0 Lymph # (Auto) 1.8 [place] # (Auto) 0.4 Eos # (Auto) 0.6 Baso # (Auto) 0.1 Absolute Nucleated RBC 0.00 Nucleated RBC % 0.0 Sodium 136 Potassium 3.3 L Chloride 98 L Carbon Dioxide 31 Anion Gap 7.0 BUN 6 Creatinine 0.7 Estimated GFR (MDRD) 88 L Glucose 96 Calcium 8.6 Total Bilirubin 0.3 AST 26 ALT 30 Alkaline Phosphatase 142 H Troponin I High Sens 3.3 B-Natriuretic Peptide 55 Total Protein 6.7 Albumin 3.7 Globulin 3.0 Albumin/Globulin Ratio 1.2 Lipase 14 PD Medical Decision Making - ED course Complexity details: reviewed results, re-evaluated patient, d/w patient ED course: Patient is a 53-year-old female presenting for evaluation of chest pain along with feeling lightheaded and nauseous earlier today. Here vital signs are stable. EKG is reviewed and without signs of acute ischemia. CBC, chemistries, BNP, troponin were obtained and reviewed without any significant findings. Chest x-ray shows some findings of edema. Does not have symptoms to suggest pneumonia. High sensitive troponin is negative With onset of symptoms at least 6 hours from this number therefore I feel that ACS is unlikely.Low risk per the heart score. She does not feel short of air and feel pulmonary embolism is less likely. She is feeling better here and would like to go home. She understands importance of close follow-up with primary care provider as she may need further cardiac testing. She is counseled on concerning symptoms to return for. Departure - Departure Disposition: 01 Home, Self Care Clinical Impression: Chest pain, Hypokalemia, Leg swelling, Lightheaded Condition: Stable Instructions: ED Chest Pain Atypical Unkn Cause Follow-Up: Mary Gandhi ARNP [Provider Admit Priv/Credential] - Within 3 Days Comments: Your testing at this time does not show signs of a heart attack. However you do need close follow-up with your primary care Patient may need further testing such as a stress test or an echocardiogram to evaluate your heart. Your potassium level was slightly low so we did give you a small dose of potassium here. Please be cautious with your fluid intake as this could be causing you to retain more fluid in your legs and lungs. You can consider taking an extra 40 mg of Lasix for the next 2 days to see if getting rid of more fluid will help with your symptoms. Return to the emergency department with any worsening. Forms: PCP List Discharge Date/Time: 10/31/23 12:21
[2023-10-31] MEDS ORDERED: POTASSIUM BICARB 25 MEQ TABLET PO ONE (12:06)
[2023-10-31 12:10] VITALS: BP 113/73
== END 2023-10-31 12:21 | disposition home or self-care (01) ==
LOC: EDUNIT# → ED 10:19
DX: R07.9 Chest pain, unspecified (principal); E87.6 Hypokalemia; R60.9 Edema, unspecified; R42 Dizziness and giddiness; E11.9 Type 2 diabetes mellitus without complications; Z79.84 Long term (current) use of oral hypoglycemic drugs; F17.200 Nicotine dependence, unspecified, uncomplicated
CPT/HCPCS: 36415; 71045; 80053; 83690; 83880; 84484; 85025; 93005; 99284; A9270

== ENCOUNTER 2023-11-16 08:14 | Outpatient (CLI) | payer MEDICAID ==
[2023-11-16 11:57] LABS: INR 1.1 (0.8-1.2)
[2023-11-16 12:18] LABS: BASOPHILS # (AUTO) 0.1 10^3/uL (0.0-0.1); EOSINOPHILS # (AUTO) 0.3 10^3/uL (0.0-0.7); EOSINOPHILS % (AUTO) 5.4 %; HGB - HEMOGLOBIN 14.2 g/dL (12.0-16.0); LYMPHOCYTES # (AUTO) 2.2 10^3/uL (1.5-3.5); LYMPHOCYTES % (AUTO) 36.4 %; MEAN CORPUSCULAR HEMOGLOBIN 32.3 pg (27.0-31.0); MEAN CORPUSCULAR VOLUME 97.7 fL (81.0-99.0); MEAN PLATELET VOLUME 10.7 fL (7.9-10.8); MONOCYTES # (AUTO) 0.4 10^3/uL (0.0-1.0); MONOCYTES % (AUTO) 6.5 %; NEUTROPHILS # (AUTO) 3.1 10^3/uL (1.5-6.6); NEUTROPHILS % (AUTO) 50.4 %; PLT - PLATELET COUNT 295 10^3/uL (130-450); RED CELL DISTRIBUTION WIDTH 12.7 % (12.0-15.0); WHITE BLOOD COUNT 6.1 x10^3/uL (4.8-10.8)
[2023-11-16 12:20] LABS: ESTIMATED AVERAGE GLUCOSE 134 mg/dL (70-100); HEMOGLOBIN A1c% 6.3 % (4.27-6.07)
[2023-11-16 12:34] LABS: ALBUMIN 3.8 g/dL (3.2-5.5); ALBUMIN/GLOBULIN RATIO 1.3 (1.0-2.2); BILIRUBIN,TOTAL 0.2 mg/dL (0.2-1.0); CALCIUM 8.9 mg/dL (8.5-10.3); CREATININE 0.8 mg/dL (0.6-1.3); POTASSIUM 3.4 mmol/L (3.5-4.5); TOTAL PROTEIN 6.7 g/dL (6.4-8.9)
[2023-11-16 12:47] LABS: CREATININE,URINE 81.3 mg/dL
[2023-11-16 12:55] LABS: MICROALBUMIN,URINE < 0.7 mg/dL
[2023-11-17 03:12] LABS: HCV AB Non Reactive (Non Reactive)
[2023-11-17 06:12] LABS: HBsAG SCREEN Negative (Negative); HEPATITIS A TOTAL AB Negative (Negative); HEPATITIS B SURFACE AB QUANT <3.1 mIU/mL (Immunity>9.9)
[2023-11-17 07:11] LABS: AFP SERUM TUMOR MARKER 1.8 ng/mL (0.0-9.2)
== END 2023-11-16 08:15 | disposition home or self-care (01) ==
LOC: LAB.N 08:14
PROVIDERS: ATTEND Internal Medicine Gastroenterology
DX: E11.9 Type 2 diabetes mellitus without complications (principal); K74.60 Unspecified cirrhosis of liver
CPT/HCPCS: 36415; 80053; 82043; 82105; 82570; 83036; 85025; 85384; 85610; 86317; 86708; 86803; 87340

== ENCOUNTER 2023-11-17 13:07 | Emergency (ER) | payer MEDICAID ==
[2023-11-17 13:33] VITALS: O2SAT 98
--- NOTE | 2023-11-17 13:47 | ED Physician Documentation ---
PD HPI HEENT - Stated complaint Stated Complaint: DIZZINESS - Chief complaint Chief Complaint: Cardiac - History obtained from History obtained from: Patient - History of Present Illness Timing - onset: How many minutes ago (few minutes at a time. Has had intermittent feelings of chest pressure, lightheaded, and near syncope for few minutes at a time over the past few weeks. Seen in ED for this couple weeks ago with normal testing. Feels okay between episodes with normal activity.) Timing - duration: Minutes Timing - details: Abrupt onset (feeling of lightheaded and chest discomfort intermittently over past few weeks.), Now resolved Associated symptoms: No: Fever, Congestion Recently seen: Clinic (seen in follow up of last ED visit and is getting orderes scheduled for Ziopatch type monitor and ECHO. To be done likely in next week or two. Also referral to Cardiology at , which may be awhile. PCP could consider just at [facility] or [facility] as they have EPS and Cardiology more locally.), Emergency Dept (10/31/23 with similar symptosm of lighthead, nausea and also with chest pressure at that time. ECG and trop were okay. Labs showed low potassium. No other acute process. 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 Psych: Depression, Anxiety Musculoskeletal: Osteoarthritis, Fibromyalgia, Chronic back pain Derm: Other - Past Surgical History Past Surgical History: Yes General: Cholecystectomy Ortho: Arthroscopic surgery, Carpal Tunnel surgery HEENT: Rhinoplasty - Present Medications Home Medications: Ambulatory Orders Medication Instructions Recorded Confirmed Brexpiprazole [Rexulti] 1 mg PO DAILY 09/08/18 02/11/22 Rabeprazole Sodium [Aciphex] 40 mg ORAL DAILY 09/08/18 02/11/22 Sertraline HCl [Zoloft] 100 mg ORAL BID 09/08/18 02/11/22 Aspirin [Aspirin EC] 81 mg PO DAILY 12/04/20 02/11/22 metFORMIN [Glucophage] 500 mg PO DAILY PRN 12/04/20 02/11/22 Albuterol Sulf [Ventolin Hfa 1 - 2 puffs INH Q4HR PRN 03/16/21 02/11/22 Inhaler] Alprazolam [Xanax] 1 mg PO TID 03/16/21 02/11/22 Furosemide [Lasix] 120 mg PO DAILY 03/16/21 02/11/22 Tiotropium [place] [Spiriva 1 puffs PO DAILY 03/16/21 02/11/22 Respimat] Ibuprofen [Motrin] 600 mg PO TID PRN #25 tab 12/02/21 02/11/22 Oxycodone HCl/Acetaminophen 1 tab PO 5XD 02/11/22 02/11/22 [Percocet 10-325 mg Tablet] - Allergies Allergies/Adverse Reactions: Allergies Allergy/AdvReac Type Severity Reaction Status Date / Time Egg Derived Allergy Emesis, Verified 11/17/23 13:20 stomach pain eucalyptus Allergy Anaphylaxis Verified 11/17/23 13:20 morphine Allergy Rash Verified 11/17/23 13:20 naproxen [From Aleve] Allergy Cramps Verified 11/17/23 13:20 Penicillins Allergy Anaphylaxis Verified 11/17/23 13:20 Sulfa (Sulfonamide Allergy Cramps Verified 11/17/23 13:20 Antibiotics) - Social History Does the pt smoke?: Yes Smoking Status: Current every day smoker Does the pt drink ETOH?: No Does the pt have substance abuse?: No - Immunizations Immunizations are current?: Yes - POLST Patient has POLST: No PD ED PE NORMAL - Vitals Vital signs reviewed: Yes - General General: Alert and oriented X 3, No acute distress, Well developed/nourished - Neck Neck: Supple, no meningeal sign, No adenopathy, Thyroid normal - Cardiac Cardiac: RRR - Respiratory Respiratory: Clear bilaterally - Abdomen Abdomen: Soft, Non tender - Derm Derm: Normal color, Warm and dry - Extremities Extremities: No edema, No calf tenderness / cord - Neuro Neuro: Alert and oriented X 3, No motor deficit, Normal speech Results - Vitals Vitals: Oxygen O2 Source Room air - EKG (time done) 14:48 EKG releavant findings:: EKG personally interpreted by author of this note. Relevant findings are: Rate: Rate (enter#) (74) Rhythm: NSR [place]: Normal Intervals: 1st degree AVB. No: Prolonged QT Ischemia: Normal ST segments. No: ST elevation c/w ischemia, ST depression Compare to prior EKG: Unchanged from prior EKG - Labs Labs: Laboratory Tests 11/17/23 11/17/23 15:09 15:09 Phosphorus 4.7 Magnesium 1.6 L Troponin I High Sens 2.3 B-Natriuretic Peptide 24 TSH 1.32 - Rads (name of study) head CT Relevant Findings:: Prelim report reviewed (no acute intracranial process. Chronic sinusitis ("impressive" per report).), EMP independent interpretation of test PD Medical Decision Making - ED course Complexity details: reviewed old records (recent ED visit, ECG and labs. ), reviewed results (ECG without interval change. No acute process. Prior 1st degree AVB. normal QT. Had low K last visit, will check it again today. Did head CT as she did describe some positional lightheaded and headache. No vertigo per se, so doubt cerebellar, but consider SDH or Hygroma. ), re-evaluated patient (still feeling okay here at this time. ), considered differential (ecg and CXR are okay. Basic labs today are looking good with normal lytes in particular. K had been low recently. She had stated she was getting set up for ECHO and Ziopatch through PCP. These will be good tests. Otherwise appears well today. Was about to discharge her when she said had to leave.), d/w patient ED course: pt left without discharge instructions, but we had discussed basic outline/plan and that were just waiting last blood tests. With these nromal, I felt she was okay without printed instructions and the pt was aware of lab results as she looked them up on the patient portal prior to leaving, per nursing. Having the intermittent feeling of lightheadedness would suggest potential irregular heart rhythms, so Ziopatch type test and ECHO would be approrpiate. If some delay in getting these tests, could consider low dose metoprolol or such, as does sound likely to be the process. Departure - Departure Disposition: Home, Self Care Clinical Impression: Chest discomfort, Light-headed feeling Condition: Stable Record reviewed to determine appropriate education?: Yes Follow-Up: Mary Gandhi ARNP [Provider Admit Priv/Credential] - Forms: PCP List Discharge Date/Time: 11/17/23 16:30
[2023-11-17] MEDS ORDERED: KETOROLAC 15 MG/ML VIAL IVP STA (14:27)
[2023-11-17] MEDS ORDERED: ALBUTEROL NEB 2.5 MG/3 ML INH STA (14:45)
[2023-11-17 15:31] LABS: MAGNESIUM 1.6 mg/dL (1.7-2.3); PHOSPHORUS 4.7 mg/dL (2.5-5.0)
--- NOTE | 2023-11-17 15:40 | CT Report ---
PROCEDURE: Head WO INDICATIONS: trouble writing yesterday for few minutes TECHNIQUE: Noncontrast 4.5 mm thick angled axial sections acquired from the foramen magnum to the vertex. For r adiation dose reduction, the following was used: automated exposure control, adjustment of mA and/or kV according to patient size. COMPARISON: 03/22/2023. FINDINGS: Image quality: Excellent. CSF spaces: Basal cisterns are patent. No extra-axial fluid collections. Ventricles are normal in size and shape. Brain: No midline shift. No intracranial masses or hemorrhage. Wang-white matter interface is norm al. Skull and face: Calvarium and visualized facial bones are intact, without suspicious lesions. Sinuses: Remote medial nasal antral windows and middle nasal turbinate resections. Impressive bilater al maxillary sinus mucosal thickening. Mastoids are clear. IMPRESSION: 1. No acute intracranial process. 2. Remote paranasal sinus surgery, impressive chronic sinusitis. Reviewed by: Quang Briscoe MD on 11/17/2023 3:39 PM PST Approved by: Quang Briscoe MD on 11/17/2023 3:39 PM PST Station ID: [id number]
[2023-11-17 15:42] LABS: THYROID STIMULATING HORMONE 1.32 uIU/mL (0.34-5.60)
[2023-11-17 15:43] LABS: TROPONIN I HIGH SENSITIVITY 2.3 ng/L (2.3-14.8)
[2023-11-17 17:33] VITALS: BP 138/74
== END 2023-11-17 16:30 | disposition home or self-care (01) ==
LOC: EDUNIT# → ED 13:07
DX: R42 Dizziness and giddiness (principal); R07.9 Chest pain, unspecified; E11.9 Type 2 diabetes mellitus without complications; Z79.84 Long term (current) use of oral hypoglycemic drugs; F17.200 Nicotine dependence, unspecified, uncomplicated
CPT/HCPCS: 36415; 83735; 83880; 84100; 84443; 84484; 93005; 94640; 96374; 99283

== ENCOUNTER 2023-11-27 15:49 | Outpatient (CLI) | payer MEDICAID | END 2023-11-27 15:50 | disposition critical access hospital (66) | LOC: EMS 15:49 | DX: L29.9 Pruritus, unspecified (principal); M79.89 Other specified soft tissue disorders; G43.909 Migraine, unspecified, not intractable, without status migrainosus; R11.2 Nausea with vomiting, unspecified | CPT/HCPCS: A0425; A0429; A0999 ==

== ENCOUNTER 2023-11-27 16:04 | Emergency (ER) | payer MEDICAID ==
--- NOTE | 2023-11-27 16:11 | ED Physician Documentation ---
PD HPI SKIN - Stated complaint Stated Complaint: ALLERGIC REACTION - History obtained from History obtained from: Patient - History of Present Illness Timing - onset: How many hours ago (1-2) Timing - duration: Hours (1-2) Timing - details: Abrupt onset, Still present Location: [place] Quality / character: Itchy (with hives diffusely). No: Vesicular Associated symptoms: No: Fever Contributing factors: Exposed to medication (She had had some headache since this morning and had taken approximately 10 Goody's package headache medicine through the day. She does not typically drink regular caffeine.), Exposed to food (She had eaten at a [employer] store and had multiple toppings on it just prior to the onset of her feeling of hives, nausea, light headedness.) Similar symptoms before: Has not had sx before Review of Systems Respiratory: reports: Dyspnea, Other (denies oral/tongue swelling.). denies: Cough, Wheezing GI: reports: Nausea Neurologic: reports: Near syncope (Onset of feeling lightheaded jittery and nauseous in the same timeframe as the hives.) PD PAST MEDICAL HISTORY - Past Medical History Cardiovascular: None Respiratory: Asthma Neuro: Migraines Endocrine/Autoimmune: Type 2 diabetes, HyPOthyroidism GI: GERD, Cirrhosis [employer]: None : None Psych: Depression, Anxiety Musculoskeletal: Osteoarthritis, Fibromyalgia, Chronic back pain Derm: Other - Past Surgical History Past Surgical History: Yes General: Cholecystectomy Ortho: Arthroscopic surgery, Carpal Tunnel surgery HEENT: Rhinoplasty - Present Medications Home Medications: Ambulatory Orders Medication Instructions Recorded Confirmed Brexpiprazole [Rexulti] 1 mg PO DAILY 09/08/18 02/11/22 Rabeprazole Sodium [Aciphex] 40 mg ORAL DAILY 09/08/18 02/11/22 Sertraline HCl [Zoloft] 100 mg ORAL BID 09/08/18 02/11/22 Aspirin [Aspirin EC] 81 mg PO DAILY 12/04/20 02/11/22 metFORMIN [Glucophage] 500 mg PO DAILY PRN 12/04/20 02/11/22 Albuterol Sulf [Ventolin Hfa 1 - 2 puffs INH Q4HR PRN 03/16/21 02/11/22 Inhaler] Alprazolam [Xanax] 1 mg PO TID 03/16/21 02/11/22 Furosemide [Lasix] 120 mg PO DAILY 03/16/21 02/11/22 Tiotropium [place] [Spiriva 1 puffs PO DAILY 03/16/21 02/11/22 Respimat] Ibuprofen [Motrin] 600 mg PO TID PRN #25 tab 12/02/21 02/11/22 Oxycodone HCl/Acetaminophen 1 tab PO 5XD 02/11/22 02/11/22 [Percocet 10-325 mg Tablet] Cetirizine [ZyrTEC] 10 mg PO BID #15 tablet 11/27/23 Magnesium Oxide 400 mg PO DAILY #10 tablet 11/27/23 Ondansetron Odt [Zofran] 4 mg TL Q6H PRN #10 tablet 11/27/23 Potassium Citrate [Potassium 15 meq PO DAILY #15 tab 11/27/23 Citrate ER] dexAMETHasone [Decadron] 4 mg PO DAILY #5 tablet 11/27/23 - Allergies Allergies/Adverse Reactions: Allergies Allergy/AdvReac Type Severity Reaction Status Date / Time Egg Derived Allergy Emesis, Verified 11/17/23 13:20 stomach pain eucalyptus Allergy Anaphylaxis Verified 11/17/23 13:20 morphine Allergy Rash Verified 11/17/23 13:20 naproxen [From Aleve] Allergy Cramps Verified 11/17/23 13:20 Penicillins Allergy Anaphylaxis Verified 11/17/23 13:20 Sulfa (Sulfonamide Allergy Cramps Verified 11/17/23 13:20 Antibiotics) - Social History Does the pt smoke?: Yes Smoking Status: Current every day smoker Does the pt drink ETOH?: No Does the pt have substance abuse?: No - Immunizations Immunizations are current?: Yes - POLST Patient has POLST: No PD ED PE NORMAL - Vitals Vital signs reviewed: Yes (BP is adequate, with some tachycardia) - General General: Alert and oriented X 3, Well developed/nourished - HEENT HEENT: Pharynx benign (no intraoral swelling) - Neck Neck: Supple, no meningeal sign, No adenopathy - Cardiac Cardiac: No murmur. No: RRR (regular but tachycardic) - Respiratory Respiratory: No respiratory distress, Clear bilaterally - Abdomen Abdomen: Normal bowel sounds, Soft, Non tender, Non distended - Back Back: No CVA TTP - Derm Derm: Warm and dry. No: Normal color (pale and cool skin. ) Results - Vitals Vitals: Vital Signs - 24 hr 11/27/23 11/27/23 11/27/23 16:05 16:47 17:17 Temperature 36.2 C L Heart Rate 112 H 79 82 Respiratory 16 12 13 Rate Blood Pressure 150/103 H 148/79 H 135/77 H O2 Saturation 95 90 L 90 L 11/27/23 11/27/23 11/27/23 17:30 18:00 18:30 Temperature Heart Rate 81 78 84 Respiratory 16 18 18 Rate Blood Pressure 130/70 132/78 H 132/78 H O2 Saturation 92 93 94 11/27/23 18:43 Temperature Heart Rate 88 Respiratory 16 Rate Blood Pressure 128/78 O2 Saturation 96 Oxygen O2 Source Room air - Labs Labs: Laboratory Tests 11/27/23 11/27/23 11/27/23 16:34 16:34 16:34 WBC 14.8 H RBC 4.75 Hgb 15.0 Hct 43.7 MCV 92.0 MCH 31.6 H MCHC 34.3 RDW 12.5 Plt Count 341 MPV 9.9 Neut # (Auto) 12.2 H Lymph # (Auto) 1.6 [place] # (Auto) 0.6 Eos # (Auto) 0.2 Baso # (Auto) 0.0 Absolute Nucleated RBC 0.00 Nucleated RBC % 0.0 Sodium 133 L Potassium 2.9 L Chloride 97 L Carbon Dioxide 24 Anion Gap 12.0 BUN 10 Creatinine 0.7 Estimated GFR (MDRD) 88 L Glucose 171 H Calcium 9.1 Magnesium 1.5 L Total Bilirubin 0.6 AST 93 H ALT 43 Alkaline Phosphatase 140 H Troponin I High Sens 3.1 Total Protein 6.8 Albumin 3.9 Globulin 2.9 Albumin/Globulin Ratio 1.3 Lipase < 10 L Salicylates 2.1 Acetaminophen 5.0 PD Medical Decision Making - ED course Complexity details: considered differential (allergic reaction with likely some contribution of symptoms from the headache medications she had taken through the day. ), d/w patient Reviewed Lab Results: The patient states she had taken approximately 10 packets of the headache medicine that contains caffeine 65 mg, acetaminophen 500 mg, and salicylate. We did check blood levels of the acetaminophen and salicylate and they were at very low levels. She was having some feeling of jitteriness and tachycardia and nausea which could relate to excess caffeine. However this would not really cause hives or itching and those symptoms all developed soon after eating a mix of toppings on yogurt about 1/2-hour prior. Presume more of an allergic reaction and so treated with Benadryl and steroid and fluids. I had ordered epinephrine IM but the nurse had not given it as she was feeling improved and on reassessment I discontinued the order. She therefore was not given epinephrine but other medications for allergy with improvement in symptoms. Blood test results showed a low potassium and magnesium we will give supplements for her. She was given steroid dose as well for the allergic reaction. I will have her continue some antihistamine cetirizine as well as a steroid for few days. Ondansetron if needed for nausea. Also potassium and magnesium supplements. She was watched here in the ER over the the course of of 2 or 3 more hours without any return of symptoms and has adequate blood pressure. Heart rate is improved below 100. EKG was normal without any signs of ischemia. She does appear safe for discharge. Departure - Departure Disposition: 01 Home, Self Care Clinical Impression: Acute allergic reaction, Headache, Side effect of medication, Hypokalemia Condition: Stable Record reviewed to determine appropriate education?: Yes Instructions: ED Allergic Reaction General Other Follow-Up: Mary Gandhi ARNP [Primary Care Provider] - Prescriptions: dexAMETHasone [Decadron] 4 mg PO DAILY #5 tablet Magnesium Oxide 400 mg PO DAILY #10 tablet Potassium Citrate [Potassium Citrate ER] 15 meq PO DAILY #15 tab Ondansetron Odt [Zofran] 4 mg TL Q6H PRN #10 tablet PRN Reason: Nausea / Vomiting Cetirizine [ZyrTEC] 10 mg PO BID #15 tablet Comments: Your symptoms of general itching, lightheadedness, nausea seem likely attributable to an allergic reaction. Unclear what the cause was but I would avoid the toppings that you had on the yogurt for the near future. Otherwise we could consider some of your symptoms of nausea, sweaty, lightheaded and a feeling of jitteriness possibly related to the caffeine amount and the Goody's packets that you took for your headache. The medications for your headache would not have given you hives or itching so it does sound predominantly the allergic reaction. For that I would suggest continuing with a steroid medication for a few days along with cetirizine antihistamine twice daily for the next few days as well to "outlast" the effect in your system from the allergic reaction. Add diphen hydramine/Benadryl every 6-8 hours if needed for itching as well. Stay well-hydrated. Your potassium and magnesium levels were low here as well. I would suggest a magnesium supplement for the short-term as well as a potassium supplement. Home and rest and stay well-hydrated. Recheck if persisting symptoms beyond more than a day or 2. I sent your prescriptions to your preferred pharmacy. We did check blood test levels of the acetaminophen and salicylate and they are at a low level so I would not be anticipating organ side effects from the medications but certainly in the future it would be good to 6-day within recommended dosages for these. Forms: PCP List Discharge Date/Time: 11/27/23 18:47
[2023-11-27 16:38] LABS: BASOPHILS % (AUTO) 0.2 %; EOSINOPHILS # (AUTO) 0.2 10^3/uL (0.0-0.7); EOSINOPHILS % (AUTO) 1.6 %; HCT - HEMATOCRIT 43.7 % (37.0-47.0); LYMPHOCYTES # (AUTO) 1.6 10^3/uL (1.5-3.5); LYMPHOCYTES % (AUTO) 10.8 %; MEAN CORPUSCULAR HEMOGLOBIN 31.6 pg (27.0-31.0); MEAN CORPUSCULAR HGB CONC 34.3 g/dL (32.0-36.0); MEAN PLATELET VOLUME 9.9 fL (7.9-10.8); MONOCYTES # (AUTO) 0.6 10^3/uL (0.0-1.0); MONOCYTES % (AUTO) 4.1 %; NEUTROPHILS # (AUTO) 12.2 10^3/uL (1.5-6.6); NEUTROPHILS % (AUTO) 82.8 %; PLT - PLATELET COUNT 341 10^3/uL (130-450); RED BLOOD COUNT 4.75 10^6/uL (4.20-5.40); RED CELL DISTRIBUTION WIDTH 12.5 % (12.0-15.0); WHITE BLOOD COUNT 14.8 x10^3/uL (4.8-10.8)
[2023-11-27 16:53] LABS: ALBUMIN 3.9 g/dL (3.2-5.5); ALBUMIN/GLOBULIN RATIO 1.3 (1.0-2.2); ALKALINE PHOSPHATASE 140 IU/L (42-121); ALT ALANINE AMINOTRANSFERASE 43 IU/L (10-60); AST ASPARTATE AMINOTRANSFERASE 93 IU/L (10-42); BILIRUBIN,TOTAL 0.6 mg/dL (0.2-1.0); BUN - BLOOD UREA NITROGEN 10 mg/dL (6-20); CALCIUM 9.1 mg/dL (8.5-10.3); CARBON DIOXIDE - CO2 24 mmol/L (21-32); CHLORIDE 97 mmol/L (101-111); CREATININE 0.7 mg/dL (0.6-1.3); GFR - MDRD 88 (>89); GLUCOSE 171 mg/dL (74-104); POTASSIUM 2.9 mmol/L (3.5-4.5); SALICYLATE 2.1 mg/dL; SODIUM 133 mmol/L (135-145); TOTAL PROTEIN 6.8 g/dL (6.4-8.9)
[2023-11-27 16:54] LABS: LIPASE < 10 U/L (11-82)
[2023-11-27 16:59] LABS: TROPONIN I HIGH SENSITIVITY 3.1 ng/L (2.3-14.8)
[2023-11-27 17:00] LABS: MAGNESIUM 1.5 mg/dL (1.7-2.3)
[2023-11-27] MEDS: diphenhydrAMINE INJ 50 MG/ML VIAL IVP STA (17:13)
[2023-11-27] MEDS: ONDANSETRON 4 MG/2 ML VIAL IVP STA (17:13)
[2023-11-27] MEDS: SODIUM CHLORIDE 0.9% 1,000 ML IV STA (17:14)
[2023-11-27] MEDS: POTASSIUM BICARB 25 MEQ TABLET PO STA (17:49)
[2023-11-27] MEDS: DEXAMETHASONE 10 MG/ML VIAL IVP STA (17:49)
[2023-11-27] MEDS: MAGNESIUM OXIDE 400 MG TABLET PO STA (17:49)
[2023-11-27] MEDS: KETOROLAC 15 MG/ML VIAL IVP STA (17:49)
[2023-11-27] MEDS: EPINEPHrine 1 MG/ML AMP IM STA (17:50)
[2023-11-27] MEDS: POTASSIUM CHLOR 10 MEQ/100 ML 10 MEQ/100 ML BAG IV ONE (17:50)
[2023-11-27] MEDS: MAG HYDROX/AL HYDROX/SIMETH 30 ML UDC PO STA (18:39)
[2023-11-27] MEDS: LIDOCAINE VISCOUS 2% 15 ML ORAL SYRINGE MM STA (18:39)
[2023-11-27] MEDS: HYDROmorphone 0.5 MG/0.5 ML SYRINGE IVP STA (18:40)
[2023-11-27 18:47] VITALS: BP 128/78; O2SAT 96
== END 2023-11-27 18:47 | disposition home or self-care (01) ==
LOC: EDUNIT# → ED 16:04
DX: T78.1XXA Other adverse food reactions, not elsewhere classified, initial encounter (principal); X58.XXXA Exposure to other specified factors, initial encounter; R51.9 Headache, unspecified; T43.615A Adverse effect of caffeine, initial encounter; Y92.9 Unspecified place or not applicable; E87.6 Hypokalemia; J45.909 Unspecified asthma, uncomplicated; E11.9 Type 2 diabetes mellitus without complications; K21.9 Gastro-esophageal reflux disease without esophagitis; M19.90 Unspecified osteoarthritis, unspecified site; M79.7 Fibromyalgia; E03.9 Hypothyroidism, unspecified; Z79.84 Long term (current) use of oral hypoglycemic drugs; Z79.899 Other long term (current) drug therapy; F17.200 Nicotine dependence, unspecified, uncomplicated
CPT/HCPCS: 36415; 80053; 80307; 80329; 83690; 83735; 84484; 85025; 93005; 96374; 96375; 99284; 99285; A9270; J1200; 80143; 80179

== ENCOUNTER 2023-12-13 03:58 | Outpatient (CLI) | payer MEDICAID | END 2023-12-13 23:59 | disposition critical access hospital (66) | LOC: EMS 03:58 | DX: R10.12 Left upper quadrant pain (principal); R14.0 Abdominal distension (gaseous); R11.2 Nausea with vomiting, unspecified | CPT/HCPCS: A0425; A0429; A0999 ==

== ENCOUNTER 2023-12-13 04:13 | Emergency (ER) | payer MEDICAID ==
--- NOTE | 2023-12-13 04:11 | ED Physician Documentation ---
History of Present Illness - Stated complaint Stated Complaint: ABD PX/DIZZY - History obtained from History obtained from: Patient, EMS - Additonal information Additional information: BIBA. HPI from EMS, patient. Patient complains of 2 days of abdominal pain, left upper quadrant radiating around left flank to the back. The pain is exacerbated with movement, palpation of the abdomen. Pain has been steadily increasing in intensity and persistence. Patient took her Zofran and oxycodone tonight without improvement in either the nausea or the pain. Patient says the pain has some similarity to previous episode of pancreatitis. Fingerstick blood sugar by EMS was 138. Patient denies fever, hematemesis, constipation/diarrhea. She denies bladder, bowel incontinence. She also complains of episodic dizziness, although she has had such episodes for several weeks now. When I asked her to describe what symptoms she is labeling as "dizziness", she says that she has episodes where "my head feels heavy and numb". She has had testing in this emergency department recently for various complaints including episodic nausea, vomiting, and dizziness without concerning nor diagnostic results. Yesterday, she had a Zio patch placed as part of outpatient workup for these episodes of dizziness. Review of Systems Constitutional: reports: Reviewed and negative Cardiac: reports: Reviewed and negative Respiratory: reports: Reviewed and negative GI: reports: Abdominal Pain, Nausea, Vomiting. denies: Abdominal Swelling, Constipation, Diarrhea, Hematemesis, Bloody / black stool : denies: Dysuria, Frequency Skin: denies: Rash Musculoskeletal: reports: Back pain Neurologic: denies: Generalized weakness, Focal weakness, Numbness, Headache PD PAST MEDICAL HISTORY - Past Medical History Past Medical History: Yes Endocrine/Autoimmune: Type 2 diabetes, Systemic lupus erythematosus - Present Medications Home Medications: Ambulatory Orders Medication Instructions Recorded Confirmed Brexpiprazole [Rexulti] 1 mg PO DAILY 09/08/18 02/11/22 Rabeprazole Sodium [Aciphex] 40 mg ORAL DAILY 09/08/18 02/11/22 Sertraline HCl [Zoloft] 100 mg ORAL BID 09/08/18 02/11/22 Aspirin [Aspirin EC] 81 mg PO DAILY 12/04/20 02/11/22 metFORMIN [Glucophage] 500 mg PO DAILY PRN 12/04/20 02/11/22 Albuterol Sulf [Ventolin Hfa 1 - 2 puffs INH Q4HR PRN 03/16/21 02/11/22 Inhaler] Alprazolam [Xanax] 1 mg PO TID 03/16/21 02/11/22 Furosemide [Lasix] 120 mg PO DAILY 03/16/21 02/11/22 Tiotropium [place] [Spiriva 1 puffs PO DAILY 03/16/21 02/11/22 Respimat] Ibuprofen [Motrin] 600 mg PO TID PRN #25 tab 12/02/21 02/11/22 Oxycodone HCl/Acetaminophen 1 tab PO 5XD 02/11/22 02/11/22 [Percocet 10-325 mg Tablet] Cetirizine [ZyrTEC] 10 mg PO BID #15 tablet 11/27/23 Magnesium Oxide 400 mg PO DAILY #10 tablet 11/27/23 Ondansetron Odt [Zofran] 4 mg TL Q6H PRN #10 tablet 11/27/23 Potassium Citrate [Potassium 15 meq PO DAILY #15 tab 11/27/23 Citrate ER] dexAMETHasone [Decadron] 4 mg PO DAILY #5 tablet 11/27/23 - Allergies Allergies/Adverse Reactions: Allergies Allergy/AdvReac Type Severity Reaction Status Date / Time Egg Derived Allergy Emesis, Verified 12/12/23 14:02 stomach pain eucalyptus Allergy Anaphylaxis Verified 12/12/23 14:02 morphine Allergy Rash Verified 12/12/23 14:02 naproxen [From Aleve] Allergy Cramps Verified 12/12/23 14:02 Penicillins Allergy Anaphylaxis Verified 12/12/23 14:02 Sulfa (Sulfonamide Allergy Cramps Verified 12/12/23 14:02 Antibiotics) PD ED PE NORMAL - Vitals Vital signs reviewed: Yes - General General: Alert and oriented X 3, Other (obese female , appears uncomfortable due to mild-moderate painful discomfort) - HEENT HEENT: Other (tacky mucous membranes) - Neck Neck: Supple, no meningeal sign - Cardiac Cardiac: RRR, No murmur - Respiratory Respiratory: No respiratory distress, Clear bilaterally - Abdomen Abdomen: Soft, Non distended, Other (mild LLQ TTP without rebound or guarding) - Back Back: No CVA TTP - Derm Derm: No rash Results - Vitals Vitals: Vital Signs - 24 hr 12/13/23 12/13/23 12/13/23 04:19 04:22 06:16 Temperature 36.2 C L Heart Rate 82 86 84 Respiratory 16 17 18 Rate Blood Pressure 141/85 H 121/82 H 130/80 O2 Saturation 95 94 99 12/13/23 12/13/23 06:42 07:42 Temperature Heart Rate 76 82 Respiratory 15 16 Rate Blood Pressure 140/87 H 136/82 H O2 Saturation 95 94 Oxygen O2 Source Room air - Labs Labs: Laboratory Tests 12/13/23 12/13/23 12/13/23 04:20 04:20 05:00 WBC 8.1 RBC 4.56 Hgb 14.3 Hct 44.4 MCV 97.4 MCH 31.4 H MCHC 32.2 RDW 12.6 Plt Count 248 MPV 10.3 Neut # (Auto) 5.0 Lymph # (Auto) 2.1 [place] # (Auto) 0.4 Eos # (Auto) 0.5 Baso # (Auto) 0.1 Absolute Nucleated RBC 0.00 Nucleated RBC % 0.0 Sodium 134 L Potassium 3.5 Chloride 95 L Carbon Dioxide 30 Anion Gap 9.0 BUN 7 Creatinine 0.7 Estimated GFR (MDRD) 88 L Glucose 139 H Calcium 9.3 Total Bilirubin 0.4 AST 51 H ALT 29 Alkaline Phosphatase 143 H Total Protein 7.5 Albumin 4.2 Globulin 3.3 Albumin/Globulin Ratio 1.3 Lipase 48 Urine Color YELLOW Urine Clarity CLEAR Urine pH 5.5 Ur Specific [place] 1.010 Urine Protein NEGATIVE Urine Glucose (UA) NEGATIVE Urine Ketones NEGATIVE Urine Occult Blood NEGATIVE Urine Nitrite NEGATIVE Urine Bilirubin NEGATIVE Urine Urobilinogen 0.2 (NORMAL) Ur Leukocyte Esterase NEGATIVE Ur Microscopic Review NOT INDICATED Urine Culture Comments NOT INDICATED - Rads (name of study) CT A/P with IV contrast Relevant Findings:: Prelim report reviewed, See rad report PD Medical Decision Making - ED course Complexity details: reviewed old records, reviewed results, re-evaluated patient, considered differential, d/w patient ED course: Normal CBC (only exception is isolated and mildly elevated MCH). No concerning findings/abnormalities on ER abdominal panel. Normal lipase. No concerning nor diagnostic findings on CT A/P w/ IV contrast. Incidental findings of mild hepatomegaly (similar finding on US 07/17/23), borderline splenomegaly, 1.5 cm left adrenal nodule, and 1.4 cm splenic cyst vs hemangioma. She is given 1 L normal saline IV, 25 mg IV Phenergan, and 0.5 mg IV Dilaudid. Patient tells me she cannot take fentanyl and that she can take morphine if she is pre-treated with Benadryl. However, she says she has had Dilaudid without adverse reaction. Shortly after the Dilaudid was given, however, she developed mild, generalized pruritus and a few hives localized to the site of the IV were noted. She is thus then given 25 mg IV Benadryl. I reviewed the notes from [facility] ED visits from 11/17/23 and 11/27/23; testing included blood tests, EKGs, CTH. No remarkable findings on these tests except hypokalemia on 11/27/23 visit for which she was given/prescribed PO potassium. I discussed rosie's test results with patient. The cause of her abdominal pain is not apparent at this time. She has w/u in progress in outpatient setting (such as ziopatch placed yesterday) for her episodes of dizziness. Return precautions are reviewed. Departure - Departure Disposition: Home, Self Care Clinical Impression: Lightheaded Abdominal pain Qualifiers: Abdominal location: left lower quadrant Qualified Code(s): R10.32 - Left lower quadrant pain Condition: Good Instructions: ED Abdominal Pain Female Non-Specific Abdominal Pain Comments: There were no concerning nor diagnostic findings on rosie's tests, including the blood tests, urinalysis, and the CT scan of your abdomen and pelvis. There were incidental findings on the CT scan of slightly enlarged liver (this is not a new finding; this was also noted on an ultrasound that was performed on July 17), borderline spleen enlargement, and a small nodule in your left adrenal gland. None of these findings would explain any of your symptoms. The cause of your symptoms is not apparent at this time. Further testing can be performed at the discretion of your primary care provider. Forms: PCP List Discharge Date/Time: 12/13/23 07:42
[2023-12-13 04:35] LABS: BASOPHILS # (AUTO) 0.1 10^3/uL (0.0-0.1); BASOPHILS % (AUTO) 0.9 %; EOSINOPHILS # (AUTO) 0.5 10^3/uL (0.0-0.7); EOSINOPHILS % (AUTO) 5.9 %; HCT - HEMATOCRIT 44.4 % (37.0-47.0); HGB - HEMOGLOBIN 14.3 g/dL (12.0-16.0); LYMPHOCYTES # (AUTO) 2.1 10^3/uL (1.5-3.5); LYMPHOCYTES % (AUTO) 26.4 %; MEAN CORPUSCULAR HEMOGLOBIN 31.4 pg (27.0-31.0); MEAN CORPUSCULAR HGB CONC 32.2 g/dL (32.0-36.0); MEAN CORPUSCULAR VOLUME 97.4 fL (81.0-99.0); MEAN PLATELET VOLUME 10.3 fL (7.9-10.8); MONOCYTES # (AUTO) 0.4 10^3/uL (0.0-1.0); MONOCYTES % (AUTO) 4.8 %; NEUTROPHILS % (AUTO) 61.6 %; PLT - PLATELET COUNT 248 10^3/uL (130-450); RED BLOOD COUNT 4.56 10^6/uL (4.20-5.40); RED CELL DISTRIBUTION WIDTH 12.6 % (12.0-15.0); WHITE BLOOD COUNT 8.1 x10^3/uL (4.8-10.8)
[2023-12-13] MEDS ORDERED: iohexoL-300 100 ML VIAL ONE (04:35)
[2023-12-13 04:50] LABS: ALBUMIN 4.2 g/dL (3.2-5.5); ALBUMIN/GLOBULIN RATIO 1.3 (1.0-2.2); BILIRUBIN,TOTAL 0.4 mg/dL (0.2-1.0); CALCIUM 9.3 mg/dL (8.5-10.3); CREATININE 0.7 mg/dL (0.6-1.3); POTASSIUM 3.5 mmol/L (3.5-4.5); TOTAL PROTEIN 7.5 g/dL (6.4-8.9)
[2023-12-13] MEDS ORDERED: PROMETHAZINE 25 MG/1 ML VIAL ONE (04:55)
[2023-12-13] MEDS: PROMETHAZINE INJ 25 MG in SODIUM CHLORIDE 0.9% 50 ML IV STA (05:00)
[2023-12-13] MEDS: SODIUM CHLORIDE 0.9% 1,000 ML IV STA (05:01)
[2023-12-13] MEDS: HYDROmorphone 1 MG/ML CARPUJECT IVP STA (05:01)
[2023-12-13] MEDS: diphenhydrAMINE INJ 50 MG/ML VIAL IVP STA (05:34)
[2023-12-13] MEDS: iohexoL-300 100 ML VIAL IVP ONE (05:50)
[2023-12-13 05:51] LABS: BILIRUBIN,URINE NEGATIVE (NEGATIVE); GLUCOSE, URINE (UA) NEGATIVE (NEGATIVE); KETONES,URINE (UA) NEGATIVE (NEGATIVE); LEUKOCYTE ESTERASE, URINE NEGATIVE (NEGATIVE); NITRITE,URINE NEGATIVE (NEGATIVE); OCCULT BLOOD,URINE NEGATIVE (NEGATIVE); PH,URINE 5.5 PH (5.0-7.5); PROTEIN,URINE NEGATIVE (NEGATIVE); UROBILINOGEN,URINE 0.2 (NORMAL) E.U./dL (NORMAL)
[2023-12-13 05:52] LABS: CLARITY,URINE CLEAR (CLEAR)
[2023-12-13 07:54] VITALS: BP 136/82; O2SAT 94
--- NOTE | 2023-12-13 08:28 | CT Report ---
PROCEDURE: Abdomen/Pelvis W INDICATIONS: abd. pain CONTRAST: Omni 300, 100mls TECHNIQUE: After the administration of intravenous contrast, a CT scan of the abdomen and pelvis was performed. Images were recorded and evaluated at appropriate window settings. Reformats: coronal and sagittal. F or radiation dose reduction, the following was used: automated exposure control, adjustment of mA and /or kV according to patient size. COMPARISON: 02/01/2022 FINDINGS: Image quality: Diagnostic. Lower chest: Unremarkable. Liver: Hepatomegaly is unchanged. There is a question of surface nodularity suggesting possible cirrh otic change. No focal mass. Gallbladder and biliary tree: Surgically absent. No biliary dilation, accounting for post-cholecystec anahi state. Spleen: Mild splenomegaly. Spleen measures 13 cm in craniocaudal dimension. This is unchanged. Pancreas: No pancreatic ductal dilation. Adrenals: Unchanged probable small left adrenal adenoma. Kidneys and ureters: No hydronephrosis. No renal cystic lesion which requires follow up. No solid mas s. Stomach, bowel and peritoneum: No bowel distension. No pathologic free fluid. Lymph nodes: No central or retroperitoneal adenopathy. Vessels: No infrarenal aortic aneurysm. PELVIS Reproductive organs: Unremarkable. Bladder: No abnormal wall thickening, accounting for underdistention. Pelvic lymph nodes: No pelvic adenopathy by size criteria. Bones: No aggressive osseous abnormality. Other: No significant ventral or inguinal hernia. IMPRESSION: 1. Remote cholecystectomy. 2. Hepatomegaly, question cirrhosis. 3. Mild splenomegaly. 4. Stable left adrenal lesion, likely a small benign adenoma. 5. No acute abdominal process noted. Findings are concordant with preliminary interpretation provided by [facility]. Reviewed by: Quang Briscoe MD on 12/13/2023 8:27 AM PST Approved by: Quang Briscoe MD on 12/13/2023 8:27 AM PST Station ID: [id number]
== END 2023-12-13 07:42 | disposition home or self-care (01) ==
LOC: EDUNIT# → ED 04:13
DX: R42 Dizziness and giddiness (principal); R10.32 Left lower quadrant pain; L50.9 Urticaria, unspecified; T40.2X5A Adverse effect of other opioids, initial encounter; Y92.538 Other ambulatory health services establishments as the place of occurrence of the external cause; R16.2 Hepatomegaly with splenomegaly, not elsewhere classified; E27.8 Other specified disorders of adrenal gland
CPT/HCPCS: 36415; 74177; 80053; 81003; 83690; 85025; 96365; 96375; 99284; J1170; J1200; J7040; Q9967; 81001; 87086

== ENCOUNTER 2023-12-26 09:05 | Emergency (ER) | payer MEDICAID ==
[2023-12-26] MEDS: oxyCODONE 5 MG TABLET PO STA (09:53)
--- NOTE | 2023-12-26 10:07 | XRAY Report ---
PROCEDURE: Knee 3V RT INDICATIONS: fall/pain TECHNIQUE: 3 views of the knee(s) were acquired. COMPARISON: None. FINDINGS: Bones: No fractures or dislocations. No suspicious bony lesions. Soft tissues: No knee joint effusion. No suspicious soft tissue calcifications or masses. IMPRESSION: No acute fracture. No osseous lesion. If symptoms and/or clinical suspicion for pathology continue, f urther assessment with repeat plain films, or advanced imaging (e.g., CT, MRI, or bone scan) is recom mended for further assessment. Reviewed by: Jorge Rivers MD on 12/26/2023 10:06 AM PDT Approved by: Jorge Rivers MD on 12/26/2023 10:06 AM PDT Station ID: [id number]
[2023-12-26] MEDS: LIDOCAINE PATCH 5% TOP STA (10:08)
[2023-12-26 10:23] VITALS: BP 152/85; O2SAT 95
--- NOTE | 2023-12-26 10:51 | CT Report ---
PROCEDURE: Lumbar Spine WO INDICATIONS: fall/pain/prior surgeries TECHNIQUE: Noncontrast 3 mm thick sections acquired from the T12 level to the sacrum. Sagittal and coronal refo rmats were constructed. For radiation dose reduction, the following was used: automated exposure co ntrol, adjustment of mA and/or kV according to patient size. COMPARISON: 03/22/2023. FINDINGS: Image quality: Excellent. Bones: There is normal bony alignment. No acute vertebral body compression fractures. No suspiciou s lytic or blastic bony lesions. Central spinal caliber is of normal overall caliber. No pars defec ts. Soft tissues: No retroperitoneal masses or hematomas. Visualized aorta is normal in caliber. IMPRESSION: No acute fracture. No osseous lesion. If symptoms and/or clinical suspicion for pathology continue, f urther assessment with repeat plain films, or advanced imaging (e.g., CT, MRI, or bone scan) is recom mended for further assessment. Reviewed by: Jorge Rivers MD on 12/26/2023 10:50 AM PDT Approved by: Jorge Rivers MD on 12/26/2023 10:50 AM PDT Station ID: [id number]
--- NOTE | 2023-12-26 11:39 | ED Physician Documentation ---
PD HPI Fall - Stated complaint Stated Complaint: BACK PX,GLF - Chief complaint Chief Complaint: Back Pain - History obtained from History obtained from: Patient - Additional information Additional information: Pt with chronic pain including chronic back pain presenting with worsening pain in back and to R knee after fall 2 days ago. Reports she stumbled and fell, landing on R knee. She has been ambulating at her baseline. Reports history of fracture in back in past that she was unaware of for years so wanted evaluation today. Pain occasionally radiates into L leg and L great toe. No saddle anesth esia, bowel/bladder incontinence. No blood thinner use. Is on oxycodone 10-325 mg 5 times daily for chronic pain with last dose at 2AM. Review of Systems Constitutional: denies: Fever Cardiac: denies: Chest pain / pressure Respiratory: denies: Dyspnea GI: denies: Abdominal Pain Musculoskeletal: reports: Back pain, Extremity pain Neurologic: denies: Head injury PD PAST MEDICAL HISTORY - Past Medical History Past Medical History: Yes Cardiovascular: None Respiratory: Asthma Neuro: Migraines Endocrine/Autoimmune: Type 2 diabetes, Systemic lupus erythematosus GI: GERD, Cirrhosis PRODUCTION GENERALIST: None : None Psych: Depression, Anxiety Musculoskeletal: Osteoarthritis, Fibromyalgia, Chronic back pain Derm: Other - Past Surgical History Past Surgical History: Yes General: Cholecystectomy Ortho: Arthroscopic surgery, Carpal Tunnel surgery HEENT: Rhinoplasty - Present Medications Home Medications: Ambulatory Orders Medication Instructions Recorded Confirmed Brexpiprazole [Rexulti] 1 mg PO DAILY 09/08/18 02/11/22 Rabeprazole Sodium [Aciphex] 40 mg ORAL DAILY 09/08/18 02/11/22 Sertraline HCl [Zoloft] 100 mg ORAL BID 09/08/18 02/11/22 Aspirin [Aspirin EC] 81 mg PO DAILY 12/04/20 02/11/22 metFORMIN [Glucophage] 500 mg PO DAILY PRN 12/04/20 02/11/22 Albuterol Sulf [Ventolin Hfa 1 - 2 puffs INH Q4HR PRN 03/16/21 02/11/22 Inhaler] Alprazolam [Xanax] 1 mg PO TID 03/16/21 02/11/22 Furosemide [Lasix] 120 mg PO DAILY 03/16/21 02/11/22 Tiotropium Pike [Spiriva 1 puffs PO DAILY 03/16/21 02/11/22 Respimat] Ibuprofen [Motrin] 600 mg PO TID PRN #25 tab 12/02/21 02/11/22 Oxycodone HCl/Acetaminophen 1 tab PO 5XD 02/11/22 02/11/22 [Percocet 10-325 mg Tablet] Cetirizine [ZyrTEC] 10 mg PO BID #15 tablet 11/27/23 Magnesium Oxide 400 mg PO DAILY #10 tablet 11/27/23 Ondansetron Odt [Zofran] 4 mg TL Q6H PRN #10 tablet 11/27/23 Potassium Citrate [Potassium 15 meq PO DAILY #15 tab 11/27/23 Citrate ER] dexAMETHasone [Decadron] 4 mg PO DAILY #5 tablet 11/27/23 - Allergies Allergies/Adverse Reactions: Allergies Allergy/AdvReac Type Severity Reaction Status Date / Time Egg Derived Allergy Emesis, Verified 12/26/23 09:18 stomach pain eucalyptus Allergy Anaphylaxis Verified 12/26/23 09:18 morphine Allergy Rash Verified 12/26/23 09:18 naproxen [From Aleve] Allergy Cramps Verified 12/26/23 09:18 Penicillins Allergy Anaphylaxis Verified 12/26/23 09:18 Sulfa (Sulfonamide Allergy Cramps Verified 12/26/23 09:18 Antibiotics) - Social History Does the pt smoke?: Yes Smoking Status: Current every day smoker Does the pt drink ETOH?: No Does the pt have substance abuse?: No - Immunizations Immunizations are current?: Yes - POLST Patient has POLST: No PD ED PE NORMAL - General General: Alert and oriented X 3, No acute distress, Well developed/nourished - HEENT HEENT: Atraumatic, Moist mucous membranes - Neck Neck: Supple, no meningeal sign, No bony TTP, C-Spine cleared by NEXUS criteria - Cardiac Cardiac: RRR, Strong equal pulses - Respiratory Respiratory: No respiratory distress, Clear bilaterally - Abdomen Abdomen: Soft, Non tender - Back Back: Other (Mild low lumbar and left paralumbar tenderness; no erythema/swelling) - Derm Derm: Normal color - Extremities Extremities: Other (Pain to R knee; no deformity or laxity) - Neuro Neuro: Alert and oriented X 3, No motor deficit, No sensory deficit, Normal speech Results - Vitals Vitals: Vital Signs - 24 hr 03/12/24 03/12/24 09:14 10:14 Temperature 36.4 C L Heart Rate 92 92 Respiratory 20 16 Rate Blood Pressure 141/96 H 152/85 H O2 Saturation 93 95 Oxygen O2 Source Room air PD Medical Decision Making - ED course Complexity details: reviewed results, re-evaluated patient, d/w patient ED course: Pt with R knee pain and low back pain after fall 2 days ago. No head injury and not on blood thinners. Ambulating at her baseline which is with walker. No obvious signs of trauma and neurovascuarly intact in lower extremities. No red flag signs/symptoms in regards to back pain. XR R knee and CT lumbar spine reviewed without acute findings. Received dose of home pain meds here and doing better. Pt eager for discharge and aware of need for close follow up and concerning symptoms to return for. Departure - Departure Disposition: 01 Home, Self Care Clinical Impression: Right knee pain, Low back strain Condition: Stable Instructions: ED Sprain Strain Lumbar, ED Knee Pain UKO, ED RICE Comments: The CT scan of your back as well as the x-ray of your right knee do not show any fractures. Please continue with your pain medications as they are prescribed along with lidocaine patches, ice and rest. I would recommend follow-up with your primary care doctor if your symptoms or not improving. Return to the ER with any worsening symptoms such as numbness in the groin, incontinence, weakness in the legs or any other concerns. Discharge Date/Time: 12/26/23 11:47
== END 2023-12-26 11:47 | disposition home or self-care (01) ==
LOC: ED 09:05
DX: S39.012A Strain of muscle, fascia and tendon of lower back, initial encounter (principal); W01.0XXA Fall on same level from slipping, tripping and stumbling without subsequent striking against object, initial encounter; E11.9 Type 2 diabetes mellitus without complications; Z79.84 Long term (current) use of oral hypoglycemic drugs; F17.200 Nicotine dependence, unspecified, uncomplicated; M25.561 Pain in right knee
CPT/HCPCS: 72131; 73562; 99284; A9270